=== PATIENT | female | born 1950 | race Caucasian/White ===

== ENCOUNTER 2016-05-15 12:43 | Outpatient (RCR) | payer BC, MEDICARE ==
[~2016-05-15 12:43] MED LIST: ACHD5005 PO; ALPR.25T PO; ASP81TEC PO; CLON0.5T25 PO; COLE1TAB PO; CTLP20T PO; DICY10CA59 PO; DULO60CA6 PO; GABA-490 PO; HYDR25TA4 PO; HYDR50TA3 PO; INDO25CA PO; LACT1CAP8 PO; SIMV40TA4 PO; TRAM50TA2 PO; VERA180C2 PO
[2016-05-19 08:17] LABS: BONE FRACTIONS (ALK PHOS ISO) 39 U/L (0-55)
[2016-05-19 08:19] LABS: LIVER FRACTION (ALK PHOS ISO) 97 H U/L (0-94); OTHER FRACTIONS 0 U/L
[2016-05-25 15:25] LABS: FECAL FAT WEIGHT 333 G
== END 2016-08-13 | disposition home or self-care (01) ==
LOC: LAB 12:43
PROVIDERS: ATTEND Internal Medicine Gastroenterology
DX: R19.5 Other fecal abnormalities (principal); R15.9 Full incontinence of feces
CPT/HCPCS: 36415; 82710; 84075; 84080

== ENCOUNTER → 2016-05-26 | Outpatient (CLI) | payer BC ==
[2016-05-29 07:30] LABS: SMOOTH MUSCLE ANTIBODY <1:20 (<1:20)
== END ==
LOC: LAB 12:35
PROVIDERS: ATTEND Internal Medicine Gastroenterology
DX: R79.89 Other specified abnormal findings of blood chemistry (principal)
CPT/HCPCS: 36415; 86255

== ENCOUNTER → 2016-06-20 | Outpatient (CLI) | payer MEDICARE, OTHER ==
--- NOTE | 2016-06-24 20:06 | Diagnostic Imaging Report ---
Bilateral screening mammogram The current study was also evaluated with a Computer Aided Detection (CAD) system. INDICATION: Screening. No current complaints stated on the questionnaire. COMPARISON: 05/14/2015. FINDINGS: The breasts are composed of scattered fibronodular densities. There are scattered punctate calcifications seen. Allowing for technique and positional differences, no suspicious change is seen. IMPRESSION: No significant change. ACR BI-RADS Category 2: Benign findings. Result letter will be mailed to the patient. Note: At least 10% of breast cancer is not imaged by mammography. Dictated by: Dictated on workstation # [id number]
== END ==
LOC: RAD 12:37
PROVIDERS: ATTEND Nurse Practitioner Adult Health
DX: Z12.31 Encounter for screening mammogram for malignant neoplasm of breast (principal)
CPT/HCPCS: 77067

== ENCOUNTER → 2016-10-17 | Outpatient (CLI) | payer MEDICARE, OTHER ==
[2016-10-18 07:36] LABS: GLIADIN ANTIBODY IGA 2 Units (0-19); GLIADIN ANTIBODY IGG 1 Units (0-19); IMMUNOGLOBULIN IGA 163 mg/dL (71-263)
== END ==
LOC: LAB 10:06
PROVIDERS: ATTEND Internal Medicine
DX: R19.7 Diarrhea, unspecified (principal)
CPT/HCPCS: 36415; 82784; 83516

== ENCOUNTER → 2017-03-13 | Outpatient (CLI) | payer MEDICARE, OTHER ==
[2017-03-13 15:02] LABS: BASOPHILS % (AUTO) 0 % (0-10); EOSINOPHILS # (AUTO) 0.1 10^3/uL (0.0-0.3); EOSINOPHILS % (AUTO) 1 % (0-10); LYMPHOCYTES # (AUTO) 4.8 X 10^3 (1.0-4.0); LYMPHOCYTES % (AUTO) 31 % (12-44); MEAN CORPUSCULAR HEMOGLOBIN 27 PG (25-34); MEAN CORPUSCULAR HGB CONC 34 G/DL (32-36); MEAN CORPUSCULAR VOLUME 78 FL (80-99); MEAN PLATELET VOLUME 8.7 FL (7.4-10.4); MONOCYTES # (AUTO) 1.2 X 10^3 (0.0-1.0); MONOCYTES % (AUTO) 8 % (0-12); NEUTROPHILS # (AUTO) 9.5 X 10^3 (1.8-7.8); NEUTROPHILS % (AUTO) 60 % (42-75); PLATELET COUNT 432 10^3/uL (130-400); RED BLOOD COUNT 5.19 10^6/uL (4.35-5.85); WHITE BLOOD COUNT 15.7 10^3/uL (4.3-11.0)
[2017-03-13 15:26] LABS: ALANINE AMINOTRANSFERASE 18 U/L (0-55); ALBUMIN 4.1 GM/DL (3.2-4.5); ANION GAP 15 MMOL/L (5-14); ASPARTATE AMINO TRANSFERASE 19 U/L (5-34); BILIRUBIN,TOTAL 0.3 MG/DL (0.1-1.0); BLOOD UREA NITROGEN 14 MG/DL (7-18); BUN/CREATININE RATIO 17; CALCIUM 9.6 MG/DL (8.5-10.1); CARBON DIOXIDE 31 MMOL/L (21-32); CHLORIDE 92 MMOL/L (98-107); CREATININE SERUM 0.82 MG/DL (0.60-1.30); GFR ESTIMATED > 60; GLUCOSE 108 MG/DL (70-105); MAGNESIUM 2.2 MG/DL (1.8-2.4); SODIUM 138 MMOL/L (135-145); TOTAL PROTEIN 7.4 GM/DL (6.4-8.2)
[2017-03-13 15:30] LABS: POTASSIUM 1.8 MMOL/L (3.6-5.0)
[2017-03-13 15:55] LABS: LYMPHOCYTES % (MANUAL) 21 %; NEUTROPHILS % (MANUAL) 67 %; REACTIVE LYMPHOCYTES 4 %
== END ==
LOC: LAB 14:26
PROVIDERS: ATTEND Internal Medicine Cardiovascular Disease
DX: R00.2 Palpitations (principal); I10 Essential (primary) hypertension; J43.8 Other emphysema; Z87.891 Personal history of nicotine dependence
CPT/HCPCS: 36415; 80053; 83735; 84443; 85007; 85027

== ENCOUNTER → 2017-03-18 | Outpatient (CLI) | payer MEDICARE, OTHER | LOC: CARD 09:25 | PROVIDERS: ATTEND Internal Medicine Cardiovascular Disease | DX: R00.2 Palpitations (principal); I10 Essential (primary) hypertension; J43.8 Other emphysema; Z87.891 Personal history of nicotine dependence | CPT/HCPCS: 93225; 93226; 93306 ==

== ENCOUNTER → 2017-03-24 | Outpatient (CLI) | payer MEDICARE, OTHER ==
[~2017-03-24] VITALS: Ht 162.6 cm; Wt 70.8 kg
[~2017-03-24] MED LIST changes: +CATHETER FLUSH 10 ML SYR IV PRN; +REGADENOSON 0.4 MG/5 ML SYR (LEXISCAN) IV ONE
[2017-03-24 09:15] VITALS: BP 151/85
--- NOTE | 2017-03-24 21:20 | STRESS TEST ---
DATE OF SERVICE: 03/24/2017 RESTING AND POST REGADENOSON TECHNETIUM-99M TETROFOSMIN SPECT CT IMAGING ORDERING PHYSICIAN: Dr. Uribe. PRIMARY PHYSICIAN: AMEYA Vyas CLINICAL DIAGNOSES: Shortness of breath, palpitations, hypertension. Baseline images were carried out after injection of 10.55 mCi of technetium 99-m Tetrofosmin. This was followed by 0.4 mg regadenoson and 32.7 mCi of technetium 99-m Tetrofosmin for stress imaging. The electrocardiogram showed sinus rhythm at baseline and it did not change significantly with the regadenoson infusion. Review of images at rest and following stress does not indicate any distinct perfusion defects consistent with significant myocardial ischemia or infarction. Gated images show normal global left ventricular systolic function with normal regional wall motion. Left ventricular ejection fraction is calculated to be 76%. Left ventricular end diastolic volume is 40 mL. TID is absent (0.98). CONCLUSIONS: 1. No evidence of any significant myocardial ischemia or infarction on this study. 2. Normal regional wall motion. 3. Normal global left ventricular systolic function with a calculated ejection fraction of 76%. 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
== END ==
LOC: CARD 07:21
PROVIDERS: ATTEND Internal Medicine Cardiovascular Disease
DX: I10 Essential (primary) hypertension (principal); J43.8 Other emphysema; R00.2 Palpitations; Z87.891 Personal history of nicotine dependence
CPT/HCPCS: 78452; 93017

== ENCOUNTER → 2017-04-02 | Outpatient (CLI) | payer MEDICARE, OTHER ==
[~2017-04-02] MED LIST changes: -CATHETER FLUSH 10 ML SYR IV PRN; -REGADENOSON 0.4 MG/5 ML SYR (LEXISCAN) IV ONE
[2017-04-02 14:39] LABS: ANION GAP 10 MMOL/L (5-14); BLOOD UREA NITROGEN 22 MG/DL (7-18); BUN/CREATININE RATIO 28; CALCIUM 9.7 MG/DL (8.5-10.1); CARBON DIOXIDE 25 MMOL/L (21-32); CHLORIDE 105 MMOL/L (98-107); CREATININE SERUM 0.78 MG/DL (0.60-1.30); GFR ESTIMATED > 60; GLUCOSE 94 MG/DL (70-105); POTASSIUM 3.7 MMOL/L (3.6-5.0); SODIUM 140 MMOL/L (135-145)
== END ==
LOC: LAB 14:07
PROVIDERS: ATTEND Nurse Practitioner Family
DX: R00.2 Palpitations (principal); I10 Essential (primary) hypertension; E87.6 Hypokalemia; J43.8 Other emphysema
CPT/HCPCS: 36415; 80048; 83735

== ENCOUNTER → 2017-04-09 | Outpatient (CLI) | payer MEDICARE, OTHER ==
[2017-04-09 12:17] LABS: ANION GAP 14 MMOL/L (5-14); BLOOD UREA NITROGEN 17 MG/DL (7-18); BUN/CREATININE RATIO 22; CALCIUM 9.5 MG/DL (8.5-10.1); CARBON DIOXIDE 22 MMOL/L (21-32); CHLORIDE 103 MMOL/L (98-107); CREATININE SERUM 0.77 MG/DL (0.60-1.30); GFR ESTIMATED > 60; GLUCOSE 106 MG/DL (70-105); POTASSIUM 3.2 MMOL/L (3.6-5.0); SODIUM 139 MMOL/L (135-145)
== END ==
LOC: LAB 11:41
PROVIDERS: ATTEND Nurse Practitioner Family
DX: I10 Essential (primary) hypertension (principal); R00.2 Palpitations; E87.6 Hypokalemia; J43.8 Other emphysema
CPT/HCPCS: 36415; 80048; 83735

== ENCOUNTER → 2017-04-13 | Outpatient (CLI) | payer MEDICARE, OTHER ==
[2017-04-13 14:43] LABS: ANION GAP 10 MMOL/L (5-14); BLOOD UREA NITROGEN 15 MG/DL (7-18); BUN/CREATININE RATIO 21; CALCIUM 9.6 MG/DL (8.5-10.1); CARBON DIOXIDE 25 MMOL/L (21-32); CHLORIDE 107 MMOL/L (98-107); CREATININE SERUM 0.72 MG/DL (0.60-1.30); GFR ESTIMATED > 60; GLUCOSE 91 MG/DL (70-105); MAGNESIUM 2.2 MG/DL (1.8-2.4); POTASSIUM 3.5 MMOL/L (3.6-5.0); SODIUM 142 MMOL/L (135-145)
== END ==
LOC: LAB 13:57
PROVIDERS: ATTEND Internal Medicine Cardiovascular Disease
DX: E87.6 Hypokalemia (principal)
CPT/HCPCS: 36415; 80048; 83735

== ENCOUNTER → 2017-04-30 | Outpatient (CLI) | payer MEDICARE, OTHER ==
[2017-04-30 14:34] LABS: BUN/CREATININE RATIO 26; CALCIUM 9.5 MG/DL (8.5-10.1); CARBON DIOXIDE 26 MMOL/L (21-32); CHLORIDE 105 MMOL/L (98-107); CREATININE SERUM 0.72 MG/DL (0.60-1.30); GFR ESTIMATED > 60; GLUCOSE 98 MG/DL (70-105); POTASSIUM 3.1 MMOL/L (3.6-5.0); SODIUM 142 MMOL/L (135-145)
== END ==
LOC: LAB 14:04
PROVIDERS: ATTEND Nurse Practitioner Family
DX: E87.6 Hypokalemia (principal)
CPT/HCPCS: 36415; 80048; 83735

== ENCOUNTER → 2017-05-07 | Outpatient (CLI) | payer MEDICARE, OTHER ==
[2017-05-07 13:25] LABS: BUN/CREATININE RATIO 28; CALCIUM 9.5 MG/DL (8.5-10.1); CARBON DIOXIDE 25 MMOL/L (21-32); CHLORIDE 104 MMOL/L (98-107); CREATININE SERUM 0.71 MG/DL (0.60-1.30); GFR ESTIMATED > 60; GLUCOSE 104 MG/DL (70-105); MAGNESIUM 1.9 MG/DL (1.8-2.4); POTASSIUM 3.1 MMOL/L (3.6-5.0); SODIUM 140 MMOL/L (135-145)
== END ==
LOC: LAB 13:01
PROVIDERS: ATTEND Internal Medicine Cardiovascular Disease
DX: E87.6 Hypokalemia (principal); I10 Essential (primary) hypertension; I47.1 Supraventricular tachycardia
CPT/HCPCS: 36415; 80048; 83735

== ENCOUNTER → 2017-05-14 | Outpatient (CLI) | payer MEDICARE, OTHER ==
[2017-05-14 15:40] LABS: BUN/CREATININE RATIO 32; CALCIUM 9.6 MG/DL (8.5-10.1); CARBON DIOXIDE 23 MMOL/L (21-32); CHLORIDE 104 MMOL/L (98-107); CREATININE SERUM 0.75 MG/DL (0.60-1.30); GFR ESTIMATED > 60; GLUCOSE 105 MG/DL (70-105); MAGNESIUM 2.3 MG/DL (1.8-2.4); SODIUM 140 MMOL/L (135-145)
== END ==
LOC: LAB 15:10
PROVIDERS: ATTEND Internal Medicine Cardiovascular Disease
DX: E87.6 Hypokalemia (principal); I10 Essential (primary) hypertension; R00.2 Palpitations; K58.0 Irritable bowel syndrome with diarrhea; J43.8 Other emphysema
CPT/HCPCS: 36415; 80048; 83735

== ENCOUNTER → 2017-06-22 | Outpatient (CLI) | payer MEDICARE, OTHER ==
--- NOTE | 2017-06-22 13:05 | Diagnostic Imaging Report ---
INDICATION: Routine screening. COMPARISON: 06/20/2016 and 05/14/2015. TECHNIQUE: Screening digital mammography was performed bilaterally with a Computer Aided Detection (CAD) system. FINDINGS: Scattered fibroglandular densities are identified bilaterally. There are circumscribed densities identified bilaterally. An ovoid density is identified in the medial right breast at posterior depth, not well seen on the MLO view. There is an ovoid density in the retroareolar left breast just medial to the nipple line, best seen on the CC view. Additional views of these areas and an ultrasound are recommended for further evaluation. No other masses are seen. No malignant appearing microcalcifications are identified. The axillae are unremarkable. IMPRESSION: Bilateral breast densities. Additional views are recommended for further evaluation. ACR BI-RADS Category 0: Incomplete. (Needs additional imaging evaluation). Result letter will be mailed to the patient. Note: At least 10% of breast cancer is not imaged by mammography. Dictated by: Dictated on workstation # [id number]
== END ==
LOC: RAD 10:16
PROVIDERS: ATTEND Nurse Practitioner Community Health
DX: Z12.31 Encounter for screening mammogram for malignant neoplasm of breast (principal); N63.0 Unspecified lump in unspecified breast
CPT/HCPCS: 77067

== ENCOUNTER → 2017-06-22 | Outpatient (CLI) | payer MEDICARE, OTHER ==
[2017-06-22 11:13] LABS: BUN/CREATININE RATIO 27; CALCIUM 9.3 MG/DL (8.5-10.1); CARBON DIOXIDE 22 MMOL/L (21-32); CHLORIDE 107 MMOL/L (98-107); CREATININE SERUM 0.75 MG/DL (0.60-1.30); GFR ESTIMATED > 60; GLUCOSE 86 MG/DL (70-105); MAGNESIUM 2.2 MG/DL (1.8-2.4); POTASSIUM 4.1 MMOL/L (3.6-5.0); SODIUM 140 MMOL/L (135-145)
== END ==
LOC: LAB 10:18
PROVIDERS: ATTEND Internal Medicine Cardiovascular Disease
DX: E87.6 Hypokalemia (principal); I10 Essential (primary) hypertension; R00.2 Palpitations; J43.8 Other emphysema; Z72.0 Tobacco use
CPT/HCPCS: 36415; 80048; 83735

== ENCOUNTER → 2017-07-02 | Outpatient (CLI) | payer MEDICARE, OTHER ==
--- NOTE | 2017-07-02 20:07 | Diagnostic Imaging Report ---
INDICATION: Bilateral breast densities. Patient presents for additional views. EXAMINATION: Bilateral 3D spot compression CC views as well as bilateral rolled CC views were obtained. FINDINGS: Additional views confirm tiny well-defined densities in the medial aspects of both breasts. These are fairly well-circumscribed and likely benign. Densities are hard to visualize on the ML views. No suspicious calcifications are seen. IMPRESSION: Tiny circumscribed nodules in the medial aspects of both breasts. These may represent tiny cysts or intramammary lymph nodes. Further evaluation with ultrasound is recommended. ACR BI-RADS Category 0: Incomplete. (Needs additional imaging evaluation). Result letter will be mailed to the patient. Note: At least 10% of breast cancer is not imaged by mammography. Dictated by: Dictated on workstation # [id number]
--- NOTE | 2017-07-02 20:09 | Diagnostic Imaging Report ---
INDICATION: Bilateral breast densities. The patient presents for ultrasound for further evaluation. COMPARISON: Correlation is made with a diagnostic mammogram earlier the same day. FINDINGS: Evaluation of the medial aspects of bilateral breasts was performed. No sonographic abnormality is identified. No solid or cystic mass is seen. IMPRESSION: No sonographic abnormality is identified to account for the densities noted on mammogram. Nodules were circumscribed mammographically and had benign features. Even so, a followup bilateral diagnostic mammogram in six months is recommended to assure stability. ACR BI-RADS Category 3: Probably benign findings. Result letter will be mailed to the patient. Note: At least 10% of breast cancer is not imaged by mammography. Dictated by: Dictated on workstation # [id number]
== END ==
LOC: RAD 12:24
PROVIDERS: ATTEND Nurse Practitioner Community Health
DX: N63.20 Unspecified lump in the left breast, unspecified quadrant (principal); N63.10 Unspecified lump in the right breast, unspecified quadrant
CPT/HCPCS: 76642; 77066

== ENCOUNTER → 2018-01-13 | Outpatient (CLI) | payer MEDICARE, OTHER ==
[~2018-01-13] MED LIST changes: -INDO25CA PO; +INDO25CA15 PO
--- NOTE | 2018-01-13 14:23 | Diagnostic Imaging Report ---
INDICATION: Bilateral breast nodules. Patient presents for six-month followup. Correlation is made with prior mammogram from 06/22/2017 2-D and 3-D bilateral diagnostic mammography was performed including CC, MLO and 90 degree lateral views. Circumscribed nodular densities are identified throughout both breasts. These have fairly benign features. There's been no significant change since prior exam. No spiculated mass or malignant appearing microcalcifications are seen. Axilla are unremarkable. Scattered breast parenchymal pattern is present. Impression: BI-RADS 3. Stable bilateral breast nodules likely benign. Additional six-month followup is recommended to confirm stability. ACR BI-RADS Category 3: Probably benign findings. Result letter will be mailed to the patient. Note: At least 10% of breast cancer is not imaged by mammography. Dictated by: Dictated on workstation # [id number]
== END ==
LOC: RAD 13:33
PROVIDERS: ATTEND Nurse Practitioner Community Health
DX: N63.10 Unspecified lump in the right breast, unspecified quadrant (principal); N63.20 Unspecified lump in the left breast, unspecified quadrant
CPT/HCPCS: 77066

== ENCOUNTER 2018-03-19 09:01 | Outpatient (CLI) | payer MEDICARE, OTHER ==
[~2018-03-19] VITALS: Ht 162.6 cm; Wt 67.3 kg
[2018-03-19] MEDS ORDERED: CHLO750T PO (09:20)
[2018-03-19] MEDS ORDERED: CITA20TA9 PO (09:20)
[2018-03-19] MEDS ORDERED: FURO20TA4 PO (09:20)
[2018-03-19] MEDS ORDERED: GABA800T2 PO (09:20)
[2018-03-19] MEDS ORDERED: POTA-51 PO (09:20)
[2018-03-19] MEDS ORDERED: METO-370 PO (09:20)
[2018-03-19] MEDS ORDERED: VERA240C2 PO (09:20)
[2018-03-19] MEDS ORDERED: ATOR10TA66 PO (09:20)
[2018-03-19 09:25] VITALS: BP 130/77
[2018-03-19 10:14] LABS: BASOPHILS % (AUTO) 0 % (0-10); EOSINOPHILS # (AUTO) 0.6 10^3/uL (0.0-0.3); EOSINOPHILS % (AUTO) 7 % (0-10); HEMATOCRIT 42 % (35-52); HEMOGLOBIN 13.7 G/DL (11.5-16.0); LYMPHOCYTES # (AUTO) 2.6 X 10^3 (1.0-4.0); LYMPHOCYTES % (AUTO) 28 % (12-44); MEAN CORPUSCULAR HEMOGLOBIN 26 PG (25-34); MEAN CORPUSCULAR HGB CONC 33 G/DL (32-36); MEAN CORPUSCULAR VOLUME 80 FL (80-99); MEAN PLATELET VOLUME 9.7 FL (7.4-10.4); MONOCYTES # (AUTO) 0.8 X 10^3 (0.0-1.0); MONOCYTES % (AUTO) 9 % (0-12); NEUTROPHILS # (AUTO) 5.3 X 10^3 (1.8-7.8); NEUTROPHILS % (AUTO) 57 % (42-75); PLATELET COUNT 341 10^3/uL (130-400); RED BLOOD COUNT 5.24 10^6/uL (4.35-5.85); WHITE BLOOD COUNT 9.4 10^3/uL (4.3-11.0)
[2018-03-19 10:30] LABS: BUN/CREATININE RATIO 19; CALCIUM 9.8 MG/DL (8.5-10.1); CARBON DIOXIDE 22 MMOL/L (21-32); CHLORIDE 108 MMOL/L (98-107); GFR ESTIMATED > 60; GLUCOSE 96 MG/DL (70-105); POTASSIUM 3.2 MMOL/L (3.6-5.0); SODIUM 141 MMOL/L (135-145)
[2018-03-25] MEDS ORDERED: IBUP-844 PO (09:51)
[2018-03-25] MEDS ORDERED: HYDR-34 PO (09:51)
[2018-03-25] MEDS ORDERED: SIME80TA16 PO (09:51)
[2018-03-25] MEDS ORDERED: DOCU100C37 PO (09:51)
== END 2018-03-19 11:29 | disposition home or self-care (01) ==
LOC: PREOP 09:01
PROVIDERS: ATTEND Obstetrics & Gynecology
DX: Z01.812 Encounter for preprocedural laboratory examination (principal); Z11.2 Encounter for screening for other bacterial diseases; N81.89 Other female genital prolapse; K64.4 Residual hemorrhoidal skin tags
CPT/HCPCS: 36415; 80048; 85025; 86850; 86900; 86901; 87081

== ENCOUNTER 2018-03-25 08:05 | Day surgery (SDC) | payer MEDICARE, OTHER ==
[~2018-03-25] VITALS: Ht 160 cm; Wt 63.7 kg
[~2018-03-25 08:05] MED LIST changes: +ATOR10TA66 PO; +CHLO750T PO; +CITA20TA9 PO; +FURO20TA4 PO; +GABA800T2 PO; +METO-370 PO; +POTA-51 PO; +VERA240C2 PO
[2018-03-25 08:15] VITALS: BP 129/69
[2018-03-25] MEDS ORDERED: LACTATED RINGERS 1,000 ML IV PRN ×2 (08:35)
[2018-03-25] MEDS ORDERED: LACTATED RINGERS 1,000 ML IV SCH (08:35)
[2018-03-25] MEDS ORDERED: ceFAZolin INJECTION 1,000 MG in NS (IVPB) 50 ML IV ONE (08:45)
[2018-03-25] MEDS ORDERED: metroNIDAZOLE 500MG/100ML IVPB 100 ML IV ONE (08:45)
--- NOTE | 2018-03-25 08:50 | Progress Note-Pre Operative ---
Pre-Operative Progress Note H&P Reviewed The H&P was reviewed, patient examined and no changes noted. Date Seen by Provider: Mar 25, 2018 Time Seen by Provider: 08:50 Date H&P Reviewed: Mar 25, 2018 Time H&P Reviewed: 09:00 Pre-Operative Diagnosis: POP, Grade 3 cystocele ASAF SANTIAGO DO Mar 25, 2018 8:50 am
[2018-03-25] MEDS ORDERED: VASOPRESSIN INJECTION 20 UNIT/ML VIAL ONE (09:03)
[2018-03-25] MEDS ORDERED: ESTROGENS CONJ. CREAM 30 GM (PREMARIN) TUBE ONE (09:03)
[2018-03-25] MEDS ORDERED: BUPIVACAINE 0.25% 30 ML (SENSORCAINE) VIAL ONE (09:04)
[2018-03-25] MEDS ORDERED: NS (IVPB) 100 ML ONE (09:04)
[2018-03-25] MEDS ORDERED: MIDAZOLAM 2 MG/2 ML (VERSED) VIAL ONE ×2 (09:04→09:48)
[2018-03-25] MEDS ORDERED: morphine INJ 10 MG/ML 1ML (SYR OR VIAL) ONE ×2 (09:05→12:08)
[2018-03-25] MEDS ORDERED: MIDAZOLAM 2 MG/2 ML (VERSED) VIAL IV ONE (09:15)
[2018-03-25] MEDS ORDERED: morphine INJ 10 MG/ML 1ML (SYR OR VIAL) IVP ONE ×2 (09:15→12:15)
[2018-03-25] MEDS ORDERED: DOCUSATE SODIUM 100 MG (COLACE) CAP PO PRN (09:45)
[2018-03-25] MEDS ORDERED: CHLORASEPTIC LOZENGE MM PRN (09:45)
[2018-03-25] MEDS ORDERED: ZOLPIDEM 5 MG (AMBIEN) TAB PO PRN (09:45)
[2018-03-25] MEDS ORDERED: ANTACID SUSP 30 ML UDC (MYLANTA) PO PRN (09:45)
[2018-03-25] MEDS ORDERED: SIMETHICONE 80 MG (MYLICON) CHEW PO PRN (09:45)
[2018-03-25] MEDS ORDERED: fentaNYL INJECTION 100 MCG/2 ML AMP ONE (09:47)
--- NOTE | 2018-03-25 09:49 | Discharge Inst-Women's Service ---
Discharge Inst-Women's Serv Depart Medication/Instructions New, Converted or Re-Newed RX: RX on Chart Consults/Follow Up Additional Follow Up: Yes Orders/Referrals Dr. Guerrero in 7-10 days and in 8 weeks Activity Activity: Activity as Tolerated Driving Instructions: No Driving for 1 Week NO SMOKING: NO SMOKING Nothing Inside Vagina: No Douching, No Tula, No Tampons Diet Discharge Diet: No Restrictions Symptoms to Report to : Bleeding Excessive, Pain Increased, Fever Over 101 Degrees F, Vaginal Bleeding Increase, Questions/Concerns For Any Problems or Questions: Contact Your Physician Skin/Wound Care Infection Signs and Symptoms: Increased Redness, Foul Odor of Wound, Increased Drainage, Skin Itchy or Has a Rash, Increased Swelling, Temperature Above 101 F Operative Area Clean and Dry: Keep Incision Clean/Dry Stitches/Avinash/Dermabond: Dermabond, Care of Stitches Bathing Instructions: ASAF Menon DO Mar 25, 2018 9:49 am
[2018-03-25] MEDS ORDERED: SIME80TA16 PO (09:51)
[2018-03-25] MEDS ORDERED: IBUP-844 PO (09:51)
[2018-03-25] MEDS ORDERED: HYDR-34 PO (09:51)
[2018-03-25] MEDS ORDERED: DOCU100C37 PO (09:51)
[2018-03-25] MEDS ORDERED: LIDOCAINE PF 2% 5 ML (XYLOCAINE) VIAL ONE (11:06)
[2018-03-25] MEDS ORDERED: ONDANSETRON 4 MG/2 ML (SDV) Z0FRAN ONE (11:06)
[2018-03-25] MEDS ORDERED: GLYCOPYRROLATE 0.2 MG/ML (ROBINUL) 2 ML VIAL ONE ×2 (11:06→11:53)
[2018-03-25] MEDS ORDERED: NEOSTIGMINE 1 MG/ML 5 ML SYRINGE ONE (11:06)
[2018-03-25] MEDS ORDERED: DEXAMETHASONE 10 MG/ML (DECADRON) 1 ML VIAL ONE (11:06)
[2018-03-25] MEDS ORDERED: proPOfol 200 MG/20 ML (DIPRIVAN) VIAL IV ONE (11:06)
[2018-03-25] MEDS ORDERED: SEVOFLURANE (ULTANE) 15 ML INHAL SOLN ONE ×8 (11:06→11:58)
[2018-03-25] MEDS ORDERED: ROCURONIUM 10 MG/ML 5 ML SYRINGE IV ONE (11:06)
[2018-03-25] MEDS ORDERED: KETOROLAC 30 MG/ML VIAL ONE (11:06)
[2018-03-25] MEDS ORDERED: MUPIROCIN 2% OINT 22 GM (BACTROBAN) TUBE ONE (11:45)
[2018-03-25] MEDS: KETOROLAC 30 MG/ML VIAL IV PRN ×2 (11:47→19:46)
[2018-03-25] MEDS ORDERED: HYDROmorphone 2 MG/ML VIAL (DILAUDID) IV ONE (12:15)
[2018-03-25] MEDS ORDERED: ONDANSETRON 4 MG/2 ML (SDV) Z0FRAN IVP PRN (12:15)
[2018-03-25 13:25] VITALS: BP 133/72
[2018-03-25] MEDS: LACTATED RINGERS 1,000 ML IV SCH ×2 (13:33→23:58)
[2018-03-25] MEDS: HYDROcodone/APAP 7.5 MG/325 MG (LORTAB, LORCET PLUS) TABLET PO PRN (14:26)
--- OUTSIDE RECORDS SUMMARY | 2018-03-25 14:59 | XMS REPORT ---
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0 Active 533785768 Problem Abnormal mammogram R92.8 Active 910199841 Problem Major depressive disorder, recurrent episode, severe F33.2 Active 776155330572 Problem Parkinsons G20 Active 51763110 Problem PTSD (post-traumatic stress disorder) F43.10 Active 99906663 Problem Depression F32.9 Active 77849250 Problem Anxiety F41.9 Active 95430164 Problem COPD (chronic obstructive pulmonary disease) J44.9 Active 46198939 Problem Annular psoriasis L40.8 Active 263942033 Problem HTN (hypertension) I10 Active 57355899 Problem Hypertriglyceridemia E78.1 Active 120686906 ALLERGIES Substance Reaction Event Type Date Status Latex Unknown Drug Allergy Jan, Active Budesonide rash/swelling Drug Allergy Jan, Active ENCOUNTERS Encounter Location Date Diagnosis [facility] [id number] [address] Jan, Prolapsed uterus N81.4 ; Hemorrhoids, unspecified hemorrhoid type K64.9 and Eczema, unspecified type L30.9 [facility] [id number] [place] [address] 12506- 6205 Jan, Eczema of both hands L30.9 [place] [id number] [place] [address] 15577- 9945 Dec, Breast density R92.2 [place] [id number] [place] [address] 33140- 4344 Nov, Irritable bowel syndrome with diarrhea K58.0 and Alopecia L65.9 [place] [id number] [place] [address] 30220- 4957 Oct, Chronic diarrhea K52.9 and Acute colitis K52.9 [place] [id number] [place] [address] 99899- 7967 Oct, Chronic diarrhea K52.9 [place] [id number] [place] [address] 93259- 7564 Oct, Chronic diarrhea K52.9 and Edema of both legs R60.0 [place] [id number] [place] [address] 73469- 1284 Sep, Medicare annual wellness visit, initial Z00.00 ; Parkinsons G20 ; COPD (chronic obstructive pulmonary disease) J44.9 ; Major depressive disorder, single episode, mild F32.0 ; HTN (hypertension) I10 ; Hypokalemia E87.6 and Adverse effect of carbonic-anhydrase inhibitors, benzothiadiazides and other diuretics, initial encounter T50.2X5A [place] [id number] [place] [address] 42836- 6389 Sep, Localized edema R60.0 [place] [id number] [place] [address] 23387- 0775 Sep, [address] [id number] [place] [address] 46016- 1936 Sep, Major depressive disorder, single episode, mild F32.0 ; PTSD (post-traumatic stress disorder) F43.10 and Edema of both legs R60.0 [place] [id number] [place] [address] 73805- 0339 August, Localized edema R60.0 [facility] [id number] [place] [address] 60785- 9526 August, Localized edema R60.0 ; Weight gain R63.5 and Irritable bowel syndrome with diarrhea K58.0 [facility] [id number] [place] [address] 46528- 0865 Jul, [facility] [id number] [place] [address] 31839- 8656 Jul, Elevated liver enzymes R74.8 [facility] [id number] [place] [address] 10945- 1376 Jul, Polyneuropathy G62.9 [facility] [id number] [place] [address] 39875- 1890 Jul, [facility] [id number] [place] [address] 15182- 7110 Jul, Cervical disc disease M50.90 [facility] [id number] [place] [address] 02382- 8346 Jul, Elevated liver enzymes R74.8 [facility] [id number] [place] [address] 50134- 1248 Jul, Polyneuropathy G62.9 ; Ulcerative pancolitis without complication K51.00 ; Depression F32.9 ; Leg weakness, bilateral R29.898 and Paresthesia of bilateral legs R20.2 [facility] [id number] [place] [address] 33077- 8887 Jul, Polyneuropathy G62.9 ; Ulcerative pancolitis without complication K51.00 ; Depression F32.9 ; Leg weakness, bilateral R29.898 and Paresthesia of bilateral legs R20.2 [facility] [id number] [place] [address] 68801- 0731 Jun, [facility] [id number] [place] [address] 98790- 6973 Jun, Fibrous breast lumps N63.0 [place] [id number] [place] [address] 96121- 4290 Jun, Ulcerative pancolitis without complication K51.00 [place] [id number] [place] [address] 33223- 6288 Jun, Abnormal mammogram R92.8 [place] [address] 08422- 4490 Jun, Breast density R92.2 [place] [address] 27151- 1893 Jun, [place] [id number] [place] [address] 44997- 5212 Jun, PTSD (post-traumatic stress disorder) F43.10 [place] [id number] [place] [address] 25362- 2844 May, [place] [id number] [place] [address] 94998- 1848 May, Breast cancer screening Z12.31 and Fibrous breast lumps N63.0 [place] [id number] [place] [address] 65190- 1936 Apr, Ulcerative pancolitis without complication K51.00 [place] [id number] [place] [address] 21706- 7639 Apr, [place] [id number] [place] [address] 90363- 2444 Apr, Ulcerative pancolitis without complication K51.00 ; Low back pain M54.5 and Other chronic pain G89.29 [place] [id number] [place] [address] 10297- 1069 Dec, Cervical disc disease M50.90 and HTN (hypertension) I10 [place] [id number] [place] [address] 72939- 7897 Dec, Moderate episode of recurrent major depressive disorder F33.1 and PTSD (post-traumatic stress disorder) F43.10 [place] [id number] [place] [address] 33617- 0220 Oct, [place] [id number] [place] [address] 26571- 9110 Oct, Irritable bowel syndrome with diarrhea K58.0 [place] [id number] [place] [address] 19523- 1444 Oct, Irritable bowel syndrome with diarrhea K58.0 [place] [id number] [place] [address] 18446- 0788 Sep, Diarrhea, unspecified type R19.7 ; Chronic pain G89.29 ; Hypertriglyceridemia E78.1 ; PTSD (post-traumatic stress disorder) F43.10 ; History of herniated intervertebral disc Z87.39 and Depression F32.9 [place] [id number] [place] [address] 42901- 7282 August, Moderate episode of recurrent major depressive disorder F33.1 and PTSD (post-traumatic stress disorder) F43.10 [place] [id number] [place] [address] 28637- 1114 August, [place] [id number] [place] [address] 24602- 4524 Jul, [place] [id number] [place] [address] 75224- 9387 Jul, PTSD (post-traumatic stress disorder) F43.10 ; IBS ( irritable bowel syndrome) K58.9 ; HTN (hypertension) I10 ; Hypertriglyceridemia E78.1 ; Chronic pain G89.29 ; Anxiety F41.9 ; Depression F32.9 ; COPD (chronic obstructive pulmonary disease) J44.9 ; Irritable bowel syndrome with diarrhea K58.0 and Second degree hemorrhoids K64.1 [place] [id number] [place] [address] 98206- 3265 Jul, PTSD (post-traumatic stress disorder) F43.10 [place] [id number] [place] [address] 69313- 2325 Jul, [facility] [id number] [place] [address] 09525- 7933 Jun, [place] [id number] [place] [address] 64297- 2340 Jun, HTN (hypertension) I10 [place] [id number] [place] [address] 66712- 4193 May, Depression F32.9 ; Post traumatic stress disorder F43.10 and Screening mammogram, encounter for Z12.31 [place] [id number] [place] [address] 35679- 4203 May, [place] [id number] [place] [address] 50395- 3443 May, PTSD (post-traumatic stress disorder) F43.10 and Major depressive disorder in partial remission F32.4 [place] [id number] [place] [address] 60454- 4969 May, PTSD (post-traumatic stress disorder) F43.10 ; IBS ( irritable bowel syndrome) K58.9 ; History of herniated intervertebral disc Z87.39 ; Anxiety F41.9 ; Depression F32.9 ; Hypertriglyceridemia E78.1 ; Eczema of both hands L30.9 ; HTN (hypertension) I10 and COPD (chronic obstructive pulmonary disease) J44.9 [place] [address] [address]- 7627 Apr, Major depressive disorder in partial remission F32.4 and PTSD (post-traumatic stress disorder) F43.10 [place] [address] [address]- 1499 Apr, PTSD (post-traumatic stress disorder) F43.10 [place] [address] 98445- 9361 Mar, IBS (irritable bowel syndrome) K58.9 ; PTSD (post-traumatic stress disorder) F43.10 ; COPD (chronic obstructive pulmonary disease) J44.9 ; History of herniated intervertebral disc Z87.39 ; HTN (hypertension) I10 ; Parkinsons G20 ; Annular psoriasis L40.8 and Hypertriglyceridemia E78.[address] 31210- 5006 Feb, [address] 53309- 1251 Feb, Moderate episode of recurrent major depressive disorder F33.1 and PTSD (post-traumatic stress disorder) F43.[address] 15923- 9827 Jan, Onychocryptosis L60.[address] 85738- 4401 Dec, [place] [address] 39102- 3781 Dec, Dizziness R42 ; PTSD (post-traumatic stress disorder) F43.10 ; Posttraumatic stress disorder F43.10 ; IBS (irritable bowel syndrome) K58.9 ; History of herniated intervertebral disc Z87.39 ; HTN (hypertension) I10 ; Chronic pain G89.29 and Hypercholesterolemia E78.0 [place] [address] 84620- 3082 Dec, [address] 57521- 5158 Dec, [facility] [address] [place] [address] 65264 -6207 Dec, Annular psoriasis L40.[address] 45489- 3049 Nov, [address] [place] [address]- 3756 Nov, [address] 72731- 2581 Nov, HTN (hypertension) I10 ; Chronic pain G89.29 ; Annular psoriasis L40.8 ; IBS (irritable bowel syndrome) K58.9 and Vision changes H53.[address] 33935- 5632 Oct, [address] 91608- 7685 Oct, IBS (irritable bowel syndrome) K58.9 ; PTSD (post-traumatic stress disorder) F43.10 ; HTN (hypertension) I10 ; Depression F32.9 ; History of herniated intervertebral disc Z87.39 ; Anxiety F41.9 ; Chronic pain G89.29 and Hypercholesterolemia E78.[address] 00559- 4594 Oct, Major depressive disorder in partial remission F32.4 and PTSD (post-traumatic stress disorder) F43.[address] 93739- 5349 Oct, IBS (irritable bowel syndrome) K58.9 ; PTSD (post-traumatic stress disorder) F43.10 ; Major depressive disorder, recurrent episode, severe F33.2 ; Anxiety F41.9 and Impacted cerumen, unspecified laterality H61.20 [place] [id number] [place] [address] 69130- 6434 Oct, Major depressive disorder in partial remission F32.4 ; Posttraumatic stress disorder F43.10 and Anxiety F41.[address] 68551- 8427 Sep, [address] 01265- 9446 Sep, Anxiety F41.9 ; Major depressive disorder, recurrent episode , mild F33.0 and Posttraumatic stress disorder F43.10 [place] [id number] [place] [address] 79088- 3105 Sep, [place] [address] 78987- 9762 August, [place] [id number] [place] [address] 37148- 7903 Jul, Contact dermatitis L25.9 [place] [address] 96607- 6133 Jul, Major depressive disorder, recurrent episode, severe F33.2 ; Posttraumatic stress disorder F43.10 and Anxiety F41.9 [place] [address] 02265- 5205 Jul, [place] [id number] [place] [address] 00601- 0763 Jun, IBS (irritable bowel syndrome) K58.9 ; COPD (chronic obstructive pulmonary disease) J44.9 ; HTN (hypertension) I10 ; Chronic pain G89.29 ; Anxiety F41.9 ; PTSD (post-traumatic stress disorder) F43.10 ; Parkinsons G20 and Hypercholesterolemia E78.0 [place] [id number] [place] [address] 63665- 9613 Jun, [place] [id number] [place] [address] 50564- 2376 Jun, Onychocryptosis L60.0 and Onychomycosis B35.1 [place] [id number] [place] [address] 69689- 0919 May, [place] [address] 22852- 4421 May, IBS (irritable bowel syndrome) K58.9 ; COPD (chronic obstructive pulmonary disease) J44.9 ; History of herniated intervertebral disc Z87.39 ; HTN (hypertension) I10 ; Anxiety F41.9 ; Depression F32.9 and Major depressive disorder in partial remission F32.4 [place] [address] [address]- 5990 08 May, 2015 IBS (irritable bowel syndrome) K58.9 ; COPD (chronic obstructive pulmonary disease) J44.9 ; History of herniated intervertebral disc Z87.39 ; HTN (hypertension) I10 ; Anxiety F41.9 ; Depression F32.9 and Major depressive disorder in partial remission F32.4 [place] [id number] [place] [address] 33651- 9101 04 May, 2015 [place] [id number] [place] [address] 58423- 1115 04 May, 2015 Anxiety F41.9 ; IBS (irritable bowel syndrome) K58.9 and Major depressive disorder in partial remission F32.4 [place] [id number] [place] [address] 54417- 7286 18 Apr, 2015 Encounter for screening mammogram for breast cancer Z12.31 [place] [id number] [place] [address] 60303- 9601 15 Apr, 2015 [place] [id number] [place] [address] 62066- 2898 Apr, [place] [id number] [place] [address] 21666- 4607 Apr, COPD (chronic obstructive pulmonary disease) J44.9 ; HTN ( hypertension) I10 ; Chronic pain G89.29 ; Anxiety F41.9 ; PTSD (post-traumatic stress disorder) F43.10 and IBS (irritable bowel syndrome) K58.9 [place] [id number] [place] [address] 37464- 6961 Apr, PTSD (post-traumatic stress disorder) F43.10 [place] [id number] [place] [address] 15377- 0898 08 Apr, 2015 Onychocryptosis L60.0 and Onychomycosis B35.1 [place] [id number] [place] [address] 56383- 8880 Apr, IBS (irritable bowel syndrome) K58.9 ; COPD (chronic obstructive pulmonary disease) J44.9 ; History of herniated intervertebral disc Z87.39 ; HTN (hypertension) I10 ; Chronic pain G89.29 ; Anxiety F41.9 ; Depression F32.9 ; Parkinsons G20 ; Hypercholesteremia E78.0 and Hemorrhoid K64.9 [place] [id number] [place] [address] 30452- 7736 Mar, [place] [id number] [place] [address] 11480- 4452 Mar, Major depressive disorder, recurrent episode, severe F33.2 and Posttraumatic stress disorder F43.10 [place] [id number] [place] [address] 24374- 5977 Mar, [place] [id number] [place] [address] 13308- 3221 Mar, [place] [id number] [place] [address] 63884- 9817 Mar, PTSD (post-traumatic stress disorder) F43.10 [place] [id number] [place] [address] 20274- 8048 Mar, Onychomycosis B35.1 and Hypertension, benign I10 [place] [id number] [place] [address] 18781- 5641 Mar, Onychomycosis B35.1 and Hypertension, benign I10 [place] [id number] [place] [address] 15567- 9011 Feb, PTSD (post-traumatic stress disorder) F43.10 [place] [id number] [place] [address] 33177- 9470 Feb, [place] [id number] [place] [address] 31551- 5216 Feb, Major depressive disorder, recurrent episode, severe F33.2 and Posttraumatic stress disorder F43.10 [facility] [address] [place] [address] 13499- 7426 Jan, PTSD (post-traumatic stress disorder) F43.10 [facility] [id number] [place] [address] 20386 2546 Jan, Rash R21 [facility] [address] 67271 2546 Jan, PTSD (post-traumatic stress disorder) F43.10 [facility] [id number] [place] [address] 99249 2546 Jan, [place] [id number] [place] [address] 27840- 5366 30 Dec, 2014 Neuropathy 355.9 [place] [id number] [place] [address] 87816- 7306 30 Dec, 2014 PTSD (post-traumatic stress disorder) F43.10 [facility] [id number] [place] [address] 24904- 6458 29 Dec, 2014 MDD (major depressive disorder), recurrent episode, severe 296.33 and PTSD (post-traumatic stress disorder) 309.81 [place] [id number] [place] [address] 90763- 1688 Dec, [facility] [id number] [place] [address] 31506 2548 Dec, Ingrown toenail 703.0 [place] [id number] [place] [address] 24790- 9826 02 Dec, 2014 Posttraumatic stress disorder 309.81 [place] [id number] [place] [address] 98971- 2546 Nov, Depressive disorder, not elsewhere classified 311 and Anxiety state, unspecified 300.00 [facility] [id number] [place] [address] 69873- 1725 Oct, Depressive disorder, not elsewhere classified 311 and Anxiety state, unspecified 300.00 [facility] [address] [place] [address] 23958- 6745 16 Oct, 2014 Depressive disorder, not elsewhere classified 311 ; Anxiety state, unspecified 300.00 and No condition on [place] II V71.09 [facility] [address] [id number] [address] Oct, Dental examination V72.2 [facility] [id number] [place] [address] 04194- 6651 Oct, [facility] [id number] [place] [address] 46910- 1162 August, [facility] [id number] [place] [address] 72310- 3612 August, Seizure 780.39 and IBS (irritable bowel syndrome) 564.1 [facility] [id number] [place] [address] 52143- 0174 Jul, [facility] [id number] [place] [address] 19216- 9291 Jul, [facility] [id number] [place] [address] 28696- 9891 Jun, [facility] [id number] [place] [address] 93122- 8590 Jun, [facility] [id number] [place] [address] 72132- 9874 Jun, [facility] [address] [address]- 8719 Jun, [facility] [id number] [place] [address] 79920- 9404 Jun, [facility] [id number] [place] [address] 30729- 2893 Jun, [facility] [id number] [place] [address] 59193- 2546 Jun, [facility] [place] [facility] [address] [id number] [place] [address]- 0375 Jun, [facility] [place] [facility] [address] [id number] [place] [address]- 9755 Jun, [facility] [place] [facility] [address] [id number] [place] [address]- 1605 Jun, [facility] [place] [facility] [address] [id number] [place] [address]- 7945 Jun, [facility] [place] [facility] [address] [id number] [place] [address]- 8651 Jun, [facility] [place] [facility] [address] [id number] [place] [address]- 1825 May, [facility] [place] [facility] [address] [id number] [place] [address]- 2020 May, [facility] [place] [facility] [address] [id number] [place] [address]- 5407 Apr, [facility] [place] [facility] [address] [id number] [place] [address]- 2418 Apr, [facility] [place] [facility] [address] [id number] [place] [address]- 3267 Mar, [facility] [place] [facility] [address] [id number] [place] [address]- 4592 Mar, [facility] [place] [facility] [address] [id number] [place] [address]- 2088 Mar, [facility] [place] [facility] [address] [id number] [place] 2988 Mar, [facility] [place] [facility] [address] [id number] [place] 0296 Mar, [facility] [place] [facility] [address] [id number] [place] [address]- 5657 Mar, [facility] [place] [facility] [address] [id number] [place] [address]- 4261 Mar, [facility] [place] [facility] [address] [id number] [place] [address] Mar, [facility] [place] [facility] [address] [id number] [place] [address] Mar, [facility] [place] [facility] [address] [id number] [place] [address] Mar, [facility] [place] [facility] [address] [id number] [place] [address] Mar, [facility] [place] [facility] [address] [id number] [place] [address] Mar, [facility] [place] [facility] [address] [id number] [place] [address] Mar, [facility] [place] [facility] [address] [id number] [place] [address] Mar, [facility] [place] [facility] [address] [id number] [place] [address] Mar, [facility] [place] [facility] [address] [id number] [place] [address] Mar, [facility] [place] [facility] [address] [id number] [place] [address] Mar, [facility] [place] [facility] [address] [id number] [place] [address] Mar, [facility] [place] [facility] [address] [id number] [place] [address] Mar, [facility] [place] [facility] [address] [id number] [place] [address] Feb, [facility] [place] [facility] [address] [id number] [place] [address] Feb, [facility] [place] [facility] [address] [id number] [place] [address] Feb, [facility] [place] [facility] [address] [id number] [place] [address] 18 Feb, 2014 [facility] [place] [facility] [address] [id number] [place] [address] Feb, [facility] [place] [facility] [address] [id number] [place] [address] 17 Feb, 2014 [facility] [place] [facility] [address] [id number] [place] [address] Feb, [facility] [place] [facility] [address] [id number] [place] [address] Feb, [facility] [place] [facility] [address] [id number] [place] [address]- 3144 15 Jan, 2014 [facility] [place] [facility] [address] [id number] [place] [address] Jan, [facility] [place] [facility] [address] [id number] [place] [address] Nov, [facility] [place] [facility] [address] [id number] [place] [address] Nov, [facility] [place] [facility] [address] [id number] [place] [address] Oct, [facility] [place] [facility] [address] [id number] [place] [address] Oct, [facility] [place] [facility] [address] [id number] [place] [address] Oct, [facility] [place] [facility] [address] [id number] [place] [address] Oct, [facility] [place] [facility] [address] [id number] [place] [address] Oct, [facility] [place] [facility] [address] [id number] [place] [address] Sep, [facility] [place] [facility] [address] [id number] [place] [address] Sep, [facility] [place] [facility] [address] [id number] [place] [address] August, [facility] [place] [facility] [address] [id number] [place] [address] August, [facility] [place] [facility] [address] [id number] [place] [address] Jun, [facility] [place] [facility] [address] [id number] [place] [address] Jun, [facility] [place] [facility] [address] [id number] [place] [address] 74[address] Jun, [facility] [place] [facility] [address] [id number] [place] [address] Jun, [facility] [place] [facility] [address] [id number] [place] [address] 67[address] Jun, [facility] [place] [facility] [address] [id number] [place] [address] 6[address] Jun, [facility] [place] [facility] [address] [id number] [place] [address] 9464 Jun, [facility] [place] [facility] [address] [id number] [place] [address] Jun, [facility] [place] [facility] [address] [id number] [place] [address] Jun, [facility] [place] [facility] [address] [id number] [place] [address] Jun, [facility] [place] [facility] [address] [id number] [place] [address] Jun, [facility] [place] [facility] [address] [id number] [place] [address] Jun, [facility] [place] [facility] [address] [id number] [place] [address] 7184 Jun, [facility] [place] [facility] [address] [id number] [place] [address] Jun, [facility] [place] [facility] [address] [id number] [place] [address] 97[address] May, [facility] [place] [facility] [address] [id number] [place] [address] May, [facility] [place] [facility] [address] [id number] [place] [address] 39[address] Apr, [facility] [place] [facility] [address] [id number] [place] [address] Apr, [facility] [place] [facility] [address] [id number] [place] [address] 0[address] Mar, [facility] [place] [facility] [address] [id number] [place] [address] 9121 Mar, [facility] [place] [facility] [address] [id number] [place] [address]698 Feb, [facility] [place] [facility] [address] [id number] [place] [address] Feb, [facility] [place] [facility] [address] [id number] [place] [address]17 Feb, [facility] [place] [facility] [address] [id number] [place] [address] 40[address] Feb, [facility] [place] [facility] [address] [id number] [address] Feb, [facility] [place] [facility] [address] [id number] [place] [address] Feb, [facility] [place] [facility] [address] [id number] [place] [address] Feb, [facility] [place] [facility] [address] [id number] [place] [address] Jan, [facility] [place] [facility] [address] [id number] [place] [address] 2546 Jan, [facility] [place] [facility] [address] [id number] [place] [address] Dec, [facility] [place] [facility] [address] [id number] [place] [address] 224[address] Dec, [facility] [place] [facility] [address] [id number] [place] [address]- 6536 Nov, [facility] [place] [facility] [address] [id number] [place] [address] 2317 Nov, [facility] [place] [facility] [address] [id number] [place] [address] 6[address] Oct, [facility] [place] [facility] [address] [id number] [place] [address] 0937 Sep, [facility] [place] [facility] [address] [id number] [place] [address] 3815 Sep, [facility] [place] [facility] [address] [id number] [place] [address] 1328 August, [facility] [place] [facility] [address] [id number] [place] [address]16 August, [facility] [place] [facility] [address] [id number] [place] [address] 8898 August, [facility] [place] [facility] [address] [id number] [place] [address] Jul, [facility] [place] [facility] [address] [id number] [place] [address] 7010 May, [facility] [place] [facility] [address] [id number] [place] [address]- 1028 May, [facility] [place] [facility] [address] [id number] [place] [address] 5488 Apr, [facility] [place] [facility] [address] [id number] [place] [address] 2543 Apr, [facility] [place] [facility] [address] [id number] [place] [address] 2068 Feb, [facility] [place] [facility] [address] [id number] [place] [address] 8079 Feb, [facility] [place] [facility] [address] [id number] [place] [address] 4816 Jan, [facility] [place] [facility] [address] [id number] [place] [address] 3538 Jan, [facility] [place] [facility] [address] [id number] [place] [address] 2305 Jan, [facility] [place] [facility] [address] [id number] [place] [address] 9553 Nov, [facility] [place] [facility] [address] [id number] [place] [address]- 4964 Nov, [facility] [place] [facility] [address] [id number] [place] [address]- 3512 Nov, [facility] [place] [facility] [address] [id number] [place] [address]- 2550 Nov, [facility] [place] [facility] [address] [id number] [place] [address]- 4160 Nov, [facility] [place] [facility] [address] [id number] [place] [address]- 6783 Oct, [facility] [place] [facility] [address] [id number] [place] [address]- 2422 Oct, [facility] [place] [facility] [address] [id number] [place] [address]- 2644 Oct, [facility] [place] [facility] [address] [id number] [place] [address]- 8397 Oct, [facility] [place] [facility] [address] [id number] [place] [address]- 2597 Oct, [facility] [place] [facility] [address] [id number] [place] [address]- 0691 Oct, [facility] [address] [id number] [place] [address]- 9870 Oct, [facility] [place] [facility] [address] [id number] [place] [address]- 8526 Sep, [facility] [place] [facility] [address] [id number] [place] [address]- 0894 Sep, [facility] [place] [facility] [address] [id number] [place] [address]- 7435 Sep, [facility] [place] [facility] [address] [id number] [place] [address]- 7324 August, [facility] [place] [facility] [address] [id number] [place] [address]- [address]56 30 Jul, 2011 [facility] [place] [facility] [address] [id number] [place] [address]- 4179 Jul, [facility] [place] [facility] [address] [id number] [place] [address]- 7435 Jul, [facility] [place] [facility] [address] [id number] [place] [address]- 0864 Jul, [facility] [place] [facility] [address] [id number] [place] [address]- 5671 Jul, [facility] [place] [facility] [address] [id number] [place] [address]- 7946 Jun, [facility] [place] [facility] [address] [id number] [place] [address]- 1394 May, [facility] [place] [facility] [address] [id number] [place] [address]- 0537 Apr, [facility] [place] [facility] [address] [id number] [place] [address]- 5281 Apr, [facility] [place] [facility] [address] [id number] [place] [address]- 9705 Apr, [facility] [place] [facility] [address] [id number] [place] [address]- 9818 18 Apr, 2011 [facility] [place] [facility] [address] [id number] [place] [address]- 3091 Apr, [facility] [place] [facility] [address] [id number] [place] [address]- 9746 Apr, [facility] [place] [facility] [address] [id number] [place] [address] Mar, [facility] [place] [facility] [address] [id number] [place] [address]- 5549 Mar, [facility] [place] [facility] [address] [id number] [place] [address]- 0170 Feb, [facility] [place] [facility] [address] [id number] [place] [address]- 2360 Nov, [facility] [place] [facility] [address] [id number] [place] [address]- 4429 Jun, [facility] [place] [facility] [address] [id number] [place] [address]- 6191 Apr, [facility] [place] [facility] [address] [id number] [place] [address]- 6963 Feb, [facility] [place] [facility] [address] [id number] [place] [address]- 8965 Jan, [facility] [place] [facility] [address] [id number] [place] [address]- 5154 Jan, [facility] [place] [facility] [address] [id number] [place] [address]- 7114 Jan, [facility] [place] [facility] [address] [id number] [place] [address]- 2937 Jan, [facility] [place] [facility] [address] [id number] [place] [address]- 0604 16 Nov, 2009 [facility] [place] [facility] [address] [id number] [place] [address]- 6602 Nov, [facility] [address] [facility] [id number] [address] Mar, [facility] [id number] [address] Mar, [facility] [id number] [address] [address] Feb, [facility] [id number], [place] [address]- 1791 Feb, [facility] [address] [facility] [id number], [place] [address]- [address] Jan, [facility] [id number], [place] [address] May, IMMUNIZATIONS No Known Immunizations SOCIAL HISTORY Never Assessed REASON FOR VISIT prolapsed uterus Poornima ISABEL, hemroid Poornima ISABEL PLAN OF CARE Activity Details 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) Reason:prolapsed uterus VITAL SIGNS Height 64 in 2018-02-17 Weight 148.2 lbs 2018-02-17 Temperature 98.1 degrees Fahrenheit 2018-02-17 Heart Rate 69 bpm 2018-02-17 Respiratory Rate 20 2018-02-17 BMI 25.44 kg/m2 2018-02-17 Blood pressure systolic 122 mmHg 2018-02-17 Blood pressure diastolic 74 mmHg 2018-02-17 MEDICATIONS Medication Instructions Dosage Frequency Start Date End Date Duration Status Potassimin 20 meq Orally 2 times a day 1 tablet 12h Active Parafon Forte DSC 500 mg Orally Three times a day 1 tablet 8h Apr, 30 Active Verapamil HCl ER 240 MG Orally Once a day 1 tablet 24h Active Chlorzoxazone 500 MG TAKE ONE (1) TABLET BY MOUTH THREE (3) TIMES DAILY 30 Active Gabapentin 800MG TAKE ONE TABLET BY MOUTH THREE TIMES DAILY Active Lasix 80 MG Orally Once a day 1 tablet 24h 20 Sep, 2017 Active Atorvastatin Calcium 10MG Orally Once a day 1 tablet 24h Active Clobetasol Prop Emollient Base 0.05 % Externally Twice a day 1 application to affected area 12h May, 10 day(s) Active Questran 4 GM Orally Once a day 1 packet mixed with water or non-carbonated drink 24h Oct, Active Celexa 20 mg Orally Once a day 1 tablet 24h Active RESULTS No Results PROCEDURES Procedure Date Ordered Result Body Site ANNUAL WELLNESS VST; PPS SUBSQT VST Feb 17, 2018 [facility] VISIT ESTABLISHED PATIENT Feb 17, 2018 INSTRUCTIONS MEDICATIONS ADMINISTERED No Known Medications MEDICAL (GENERAL) HISTORY Type Description Date Medical History chronic obstructive pulmonary disease (COPD) Medical History hyperlipidemia Medical History herniated disc Medical History hypertension Medical History headache Medical History chronic pain Medical History Anxiety disorder Medical History depression Medical History thickening on one side of heart Medical History irritable bowel syndrome Medical History Eczema Medical History Lymphocytic colitis - diagnosed by colonoscopy Medical History supraventricular tachycardia Surgical History tubal ligation 1973 Surgical History carpal tunnel release Surgical History colonoscopy 02/2016 Hospitalization History surgeries
--- OUTSIDE RECORDS SUMMARY | 2018-03-25 15:00 | XMS REPORT ---
Author Author NAYA JACKSON Organization [facility] Address [address] [place] [address] Care Team Providers Care Ranch Helper Name Role Phone NAYA JACKSON Unavailable PROBLEMS Type Condition ICD9-CM Code ZLC68-WS Code Onset Dates Condition Status SNOMED Code Problem Hypertriglyceridemia E78.1 Active 131708953 Problem Other chronic pain G89.29 Active 27372703 Problem Cervical disc disease M50.90 Active 894749682 Problem Major depressive disorder, single episode, mild F32.0 Active 20410112 Problem Irritable bowel syndrome with diarrhea K58.0 Active 894203222 Problem Paresthesia of bilateral legs R20.2 Active 123665399 Problem Ulcerative pancolitis without complication K51.00 Active 726883335 Problem Abnormal mammogram R92.8 Active 715433546 Problem Polyneuropathy G62.9 Active 07522629 Problem PTSD (post-traumatic stress disorder) F43.10 Active 10195194 Problem Major depressive disorder, recurrent episode, severe F33.2 Active 331635821518 Problem HTN (hypertension) I10 Active 75467122 Problem Depression F32.9 Active 45530809 Problem Parkinsons G20 Active 30330960 Problem Anxiety F41.9 Active 82735446 Problem COPD (chronic obstructive pulmonary disease) J44.9 Active 03790403 Problem Annular psoriasis L40.8 Active 922594087 ALLERGIES No Information ENCOUNTERS Encounter Location Date Diagnosis [facility] [address] [facility] [id number] [address] Dec, Breast density R92.2 [facility] [id number] [place] [address] 04958- 1480 Nov, Irritable bowel syndrome with diarrhea K58.0 and Alopecia L65.9 [facility] [id number] [address] Oct, Chronic diarrhea K52.9 and Acute colitis K52.9 [place] [id number] [place] [address] 46894- 1670 Oct, Chronic diarrhea K52.9 [place] [address] [place] [address] 61549- 0859 Oct, Chronic diarrhea K52.9 and Edema of both legs R60.0 [facility] [place] [id number] [place] [address] 96526- 4725 Sep, Medicare annual wellness visit, initial Z00.00 ; Parkinsons G20 ; COPD (chronic obstructive pulmonary disease) J44.9 ; Major depressive disorder, single episode, mild F32.0 ; HTN (hypertension) I10 ; Hypokalemia E87.6 and Adverse effect of carbonic-anhydrase inhibitors, benzothiadiazides and other diuretics, initial encounter T50.2X5A [facility] [place] [id number] [place] [address] 49729- 0186 Sep, Localized edema R60.0 [facility] [place] [id number] [place] [address] 25922- 2686 Sep, [place] [id number] [place] [address] 20488- 0995 Sep, Major depressive disorder, single episode, mild F32.0 ; PTSD (post-traumatic stress disorder) F43.10 and Edema of both legs R60.0 [facility] [place] [id number] [place] [address] 35031- 2238 August, Localized edema R60.0 [facility] [place] [id number] [place] [address] 77924- 5798 August, Localized edema R60.0 ; Weight gain R63.5 and Irritable bowel syndrome with diarrhea K58.0 [place] [address] [place] [address] 71284- 9946 Jul, [facility] [place] [id number] [place] [address] 38077- 6129 Jul, Elevated liver enzymes R74.8 [facility] [address] [address] 5149 Jul, Polyneuropathy G62.9 [facility] [id number] [place] [address] 59225- 5681 Jul, [facility] [id number] [place] [address] 55396- 0938 Jul, Cervical disc disease M50.90 [facility] [id number] [place] [address] 29408- 0445 Jul, Elevated liver enzymes R74.8 [facility] [place] [id number] [place] [address] 60287- 4675 Jul, Polyneuropathy G62.9 ; Ulcerative pancolitis without complication K51.00 ; Depression F32.9 ; Leg weakness, bilateral R29.898 and Paresthesia of bilateral legs R20.2 [place] [address] [place] [address] 31506- 6275 Jul, Polyneuropathy G62.9 ; Ulcerative pancolitis without complication K51.00 ; Depression F32.9 ; Leg weakness, bilateral R29.898 and Paresthesia of bilateral legs R20.2 [place] [id number] [place] [address] 92526- 5874 Jun, [facility] [place] [id number] [place] [address] 44362- 9119 Jun, Fibrous breast lumps N63.0 [facility] [place] [address] [place] [address] 81264- 5461 Jun, Ulcerative pancolitis without complication K51.00 [facility] [place] [id number] [place] [address] 59783- 3904 Jun, Abnormal mammogram R92.8 [facility] [address] [place] [address] 16165- 1215 Jun, Breast density R92.2 [facility] [address] [place] [address] 70734- 9764 Jun, [facility] [place] [id number] [place] [address] 90919- 8570 Jun, PTSD (post-traumatic stress disorder) F43.10 [facility] [place] [id number] [place] [address] 93090- 8919 May, [facility] [id number] [place] [address] 00294- 7027 May, Breast cancer screening Z12.31 and Fibrous breast lumps N63.[address] 54541- 9070 Apr, Ulcerative pancolitis without complication K51.00 [place] [id number] [place] [address] 61924- 5797 Apr, [facility] [id number] [place] [address] 62047- 7504 Apr, Ulcerative pancolitis without complication K51.00 ; Low back pain M54.5 and Other chronic pain G89.29 [facility] [place] [id number] [place] [address] 69397- 8472 Dec, Cervical disc disease M50.90 and HTN (hypertension) I10 [facility] [place] [id number] [place] [address] 27956- 1271 05 Dec, 2016 Moderate episode of recurrent major depressive disorder F33.1 and PTSD (post-traumatic stress disorder) F43.10 [facility] [place] [address] [address]- 8783 Oct, [place] [id number] [place] [address] 83809- 0895 Oct, Irritable bowel syndrome with diarrhea K58.0 [facility] [place] [id number] [place] [address] 57163- 3791 Oct, Irritable bowel syndrome with diarrhea K58.0 [facility] [place] [address] [place] [address] 58126- 8776 Sep, Diarrhea, unspecified type R19.7 ; Chronic pain G89.29 ; Hypertriglyceridemia E78.1 ; PTSD (post-traumatic stress disorder) F43.10 ; History of herniated intervertebral disc Z87.39 and Depression F32.9 [facility] [place] [id number] [place] [address] 03773- 4391 August, Moderate episode of recurrent major depressive disorder F33.1 and PTSD (post-traumatic stress disorder) F43.10 [facility] [place] [id number] [place] [address] 32914- 7323 August, [place] [id number] [place] [address] 08957- 6761 Jul, [facility] [id number] [place] [address] 09151- 4105 Jul, PTSD (post-traumatic stress disorder) F43.10 ; IBS ( irritable bowel syndrome) K58.9 ; HTN (hypertension) I10 ; Hypertriglyceridemia E78.1 ; Chronic pain G89.29 ; Anxiety F41.9 ; Depression F32.9 ; COPD (chronic obstructive pulmonary disease) J44.9 ; Irritable bowel syndrome with diarrhea K58.0 and Second degree hemorrhoids K64.1 [place] [address] [place] [address] 62963- 6062 Jul, PTSD (post-traumatic stress disorder) F43.10 [facility] [address] [place] [address] 81826- 3880 Jul, [place] [id number] [place] [address] 96620- 6514 Jun, [facility] [id number] [place] [address] 33392- 5847 Jun, HTN (hypertension) I10 [facility] [id number] [place] [address] 34855- 7147 May, Depression F32.9 ; Post traumatic stress disorder F43.10 and Screening mammogram, encounter for Z12.31 [facility] [place] [id number] [place] [address] 23216- 7837 May, [place] [id number] [place] [address] 04677- 7613 09 May, 2016 PTSD (post-traumatic stress disorder) F43.10 and Major depressive disorder in partial remission F32.4 [facility] [place] [id number] [place] [address] 51552- 1888 02 May, 2016 PTSD (post-traumatic stress disorder) F43.10 ; IBS ( irritable bowel syndrome) K58.9 ; History of herniated intervertebral disc Z87.39 ; Anxiety F41.9 ; Depression F32.9 ; Hypertriglyceridemia E78.1 ; Eczema of both hands L30.9 ; HTN (hypertension) I10 and COPD (chronic obstructive pulmonary disease) J44.9 [place] [id number] [place] [address] 85331- 2821 Apr, Major depressive disorder in partial remission F32.4 and PTSD (post-traumatic stress disorder) F43.10 [facility] [place] [id number] [place] [address] 40555- 2241 Apr, PTSD (post-traumatic stress disorder) F43.10 [place] [id number] [place] [address] 96358- 0057 Mar, IBS (irritable bowel syndrome) K58.9 ; PTSD (post-traumatic stress disorder) F43.10 ; COPD (chronic obstructive pulmonary disease) J44.9 ; History of herniated intervertebral disc Z87.39 ; HTN (hypertension) I10 ; Parkinsons G20 ; Annular psoriasis L40.8 and Hypertriglyceridemia E78.1 [place] [id number] [place] [address] 77042- 4018 Feb, [place] [address] 34167- 0303 Feb, Moderate episode of recurrent major depressive disorder F33.1 and PTSD (post-traumatic stress disorder) F43.10 [place] [address] 64161- 1559 Jan, Onychocryptosis L60.0 [place] [address] 34801- 0482 Dec, [place] [address] 35932- 3242 Dec, Dizziness R42 ; PTSD (post-traumatic stress disorder) F43.10 ; Posttraumatic stress disorder F43.10 ; IBS (irritable bowel syndrome) K58.9 ; History of herniated intervertebral disc Z87.39 ; HTN (hypertension) I10 ; Chronic pain G89.29 and Hypercholesterolemia E78.[address] 85425- 3672 Dec, [place] [address] 31727- 3806 Dec, [facility] [address] 58369 -7463 Dec, Annular psoriasis L40.8 [place] [address] 00863- 2159 Nov, [place] [address] 40801- 6932 Nov, [place] [address] 25306- 8334 Nov, HTN (hypertension) I10 ; Chronic pain G89.29 ; Annular psoriasis L40.8 ; IBS (irritable bowel syndrome) K58.9 and Vision changes H53.9 [place] [address] 95769- 1661 Oct, [place] [address] 87881- 6904 Oct, IBS (irritable bowel syndrome) K58.9 ; PTSD (post-traumatic stress disorder) F43.10 ; HTN (hypertension) I10 ; Depression F32.9 ; History of herniated intervertebral disc Z87.39 ; Anxiety F41.9 ; Chronic pain G89.29 and Hypercholesterolemia E78.0 [place] [id number] [place] [address] 55396- 8597 Oct, Major depressive disorder in partial remission F32.4 and PTSD (post-traumatic stress disorder) F43.10 [place] [id number] [place] [address] 27669- 5001 Oct, IBS (irritable bowel syndrome) K58.9 ; PTSD (post-traumatic stress disorder) F43.10 ; Major depressive disorder, recurrent episode, severe F33.2 ; Anxiety F41.9 and Impacted cerumen, unspecified laterality H61.20 [place] [id number] [place] [address] 88715- 8727 Oct, Major depressive disorder in partial remission F32.4 ; Posttraumatic stress disorder F43.10 and Anxiety F41.9 [place] [id number] [place] [address] 44293- 1600 Sep, [place] [id number] [place] [address] 82082- 7290 Sep, Anxiety F41.9 ; Major depressive disorder, recurrent episode , mild F33.0 and Posttraumatic stress disorder F43.10 [facility] [id number] [place] [address] 29490- 3593 Sep, [place] [id number] [place] [address] 54524- 3485 August, [place] [id number] [place] [address] 98545- 8067 Jul, Contact dermatitis L25.9 [place] [id number] [place] [address] 04578- 6504 05 Apr, 2016 Major depressive disorder, recurrent episode, severe F33.2 ; Posttraumatic stress disorder F43.10 and Anxiety F41.9 [place] [id number] [place] [address] 74299- 7481 Jul, [place] [id number] [place] [address] 87765- 0507 Jun, IBS (irritable bowel syndrome) K58.9 ; COPD (chronic obstructive pulmonary disease) J44.9 ; HTN (hypertension) I10 ; Chronic pain G89.29 ; Anxiety F41.9 ; PTSD (post-traumatic stress disorder) F43.10 ; Parkinsons G20 and Hypercholesterolemia E78.0 [place] [id number] [place] [address] 44374- 1897 Jun, [place] [id number] [place] [address] 56363- 4223 Jun, Onychocryptosis L60.0 and Onychomycosis B35.1 [place] [id number] [place] [address] 79866- 6813 May, [place] [id number] [place] [address] 16075- 4769 May, IBS (irritable bowel syndrome) K58.9 ; COPD (chronic obstructive pulmonary disease) J44.9 ; History of herniated intervertebral disc Z87.39 ; HTN (hypertension) I10 ; Anxiety F41.9 ; Depression F32.9 and Major depressive disorder in partial remission F32.4 [place] [address] [place] [address] 08567- 0998 08 May, 2015 IBS (irritable bowel syndrome) K58.9 ; COPD (chronic obstructive pulmonary disease) J44.9 ; History of herniated intervertebral disc Z87.39 ; HTN (hypertension) I10 ; Anxiety F41.9 ; Depression F32.9 and Major depressive disorder in partial remission F32.4 [place] [id number] [place] [address] 85296- 3088 May, [place] [id number] [place] [address] 45041- 3378 04 May, 2015 Anxiety F41.9 ; IBS (irritable bowel syndrome) K58.9 and Major depressive disorder in partial remission F32.4 [place] [id number] [place] [address] 08881- 9385 18 Apr, 2015 Encounter for screening mammogram for breast cancer Z12.[address] 33743- 0405 15 Apr, 2015 [place] [id number] [place] [address] 93264- 1585 Apr, [address] 55139- 0535 Apr, COPD (chronic obstructive pulmonary disease) J44.9 ; HTN ( hypertension) I10 ; Chronic pain G89.29 ; Anxiety F41.9 ; PTSD (post-traumatic stress disorder) F43.10 and IBS (irritable bowel syndrome) K58.9 [place] [id number] [place] [address] 57796- 1858 Apr, PTSD (post-traumatic stress disorder) F43.10 [place] [id number] [place] [address] 83368- 0540 Apr, Onychocryptosis L60.0 and Onychomycosis B35.1 [place] [id number] [place] [address] 49961- 8863 Apr, IBS (irritable bowel syndrome) K58.9 ; COPD (chronic obstructive pulmonary disease) J44.9 ; History of herniated intervertebral disc Z87.39 ; HTN (hypertension) I10 ; Chronic pain G89.29 ; Anxiety F41.9 ; Depression F32.9 ; Parkinsons G20 ; Hypercholesteremia E78.0 and Hemorrhoid K64.9 [place] [address] [place] [address] 35091- 8477 Mar, [address] [address]- 4126 Mar, Major depressive disorder, recurrent episode, severe F33.2 and Posttraumatic stress disorder F43.10 [facility] [address], [place] [address] 2546 Mar, [facility] [id number] [place] [address] 97603 2546 Mar, [facility] [address] [place] [address] [id number] [place] [address] 38286 2546 Mar, PTSD (post-traumatic stress disorder) F43.10 [place] [id number] [place] [address] 00598- 3726 Mar, Onychomycosis B35.1 and Hypertension, benign I10 [place] [address] [id number] [place] [address] 92996- 0556 Mar, Onychomycosis B35.1 and Hypertension, benign I10 [facility] [address] [id number] [place] [address] 32781- 6110 Feb, PTSD (post-traumatic stress disorder) F43.10 [place] [id number] [place] [address] 67865- 2316 Feb, [facility] [address] [address]- 0735 Feb, Major depressive disorder, recurrent episode, severe F33.2 and Posttraumatic stress disorder F43.10 [facility] [address] [address]- 8406 Jan, PTSD (post-traumatic stress disorder) F43.10 [facility] [address] [place] [id number] [place] [address] 58879- 4136 Jan, Rash R21 [facility] [address] [address]- 1606 14 Jan, 2015 PTSD (post-traumatic stress disorder) F43.10 [facility] [address], [place] [address]- 5088 Jan, [facility] [id number] [place] [address] 99645- 3899 Dec, Neuropathy 355.9 [facility] [id number] [place] [address] 65262- 8122 Dec, PTSD (post-traumatic stress disorder) F43.10 [facility] [id number] [place] [address] 24877- 3177 Dec, MDD (major depressive disorder), recurrent episode, severe 296.33 and PTSD (post-traumatic stress disorder) 309.81 [facility] [id number] [place] [address] 85456- 7769 Dec, [facility] [id number] [place] [address] 25942- 2502 Dec, Ingrown toenail 703.0 [facility] [id number] [place] [address] 80419- 8907 Dec, Posttraumatic stress disorder 309.81 [facility] [id number] [place] [address] 33016- 5062 Nov, Depressive disorder, not elsewhere classified 311 and Anxiety state, unspecified 300.00 [facility] [address] [address]- 2451 Oct, Depressive disorder, not elsewhere classified 311 and Anxiety state, unspecified 300.00 [facility] [address] [place] [address] 82265- 7070 Oct, Depressive disorder, not elsewhere classified 311 ; Anxiety state, unspecified 300.00 and No condition on Reese II V71.09 [facility] [address] [place] [address] [id number] Oct, Dental examination V72.2 [facility] [address] [place] [address] 76970- 1081 Oct, [place] [address] [id number] [place] [address]- 2953 August, [facility] [id number] [address]- 5639 August, Seizure 780.39 and IBS (irritable bowel syndrome) 564.1 [facility] [id number] [address]- 6456 Jul, [facility] [address] [id number] [place] [address]- 2036 Jul, [facility] [address] [facility] [id number] [place] [address]- 3536 Jun, [facility] [address] [facility] [id number] [place] [address]- 3806 Jun, [facility] [address] [address]- 3165 Jun, [facility] [id number] [address]- 8481 Jun, [facility] [id number] [address]- 7247 Jun, [facility] [id number] [place] [address]- 5719 Jun, [facility] [id number] [address]- 5886 Jun, [facility] [id number] [address]- 2906 Jun, [facility] [id number] [address]- 7316 Jun, [facility] [place] [facility] [address] [facility] [id number] [place] [address]- 1864 Jun, [facility] [id number] [address]- 0066 Jun, [facility] [place] [facility] [address] [id number] [place] [address]- 1339 Jun, [facility] [place] [facility] [address] [id number] [place] [address]- 8496 May, [facility] [place] [facility] [address] [id number] [place] [address]- 6466 May, [facility] [place] [facility] [address] [id number] [place] [address]- 0756 Apr, [facility] [place] [facility] [address] [id number] [place] [address]- 3530 Apr, [facility] [place] [facility] [address] [id number] [place] [address]- 2382 Mar, [facility] [place] [facility] [address] [id number] [place] [address] Mar, [facility] [place] [facility] [address] [id number] [place] [address] Mar, [facility] [place] [facility] [address] [id number] [place] [address] Mar, [facility] [place] [facility] [address] [id number] [place] [address] Mar, [facility] [place] [facility] [address] [id number] [place] [address] Mar, [facility] [place] [facility] [address] [id number] [place] [address] Mar, [facility] [place] [facility] [address] [id number] [place] [address] Mar, [facility] [place] [facility] [address] [id number] [place] [address] Mar, [facility] [place] [facility] [address] [id number] [place] [address] Mar, [facility] [place] [facility] [address] [id number] [place] [address]- [address] Mar, [facility] [place] [facility] [address] [id number] [place] [address] Mar, [facility] [place] [facility] [address] [id number] [place] [address] Mar, [facility] [place] [facility] [address] [id number] [place] [address] Mar, [facility] [place] [facility] [address] [id number] [place] [address] Mar, [facility] [place] [facility] [address] [id number] [place] [address] Mar, [facility] [place] [facility] [address] [id number] [place] [address] Mar, [facility] [place] [facility] [address] [id number] [place] [address] Mar, [facility] [place] [facility] [address] [id number] [place] [address] Mar, [facility] [place] [facility] [address] [id number] [place] [address] Feb, [facility] [place] [facility] [address] [id number] [place] [address] Feb, [facility] [place] [facility] [address] [id number], [place] [address] Feb, [facility] [place] [facility] [address] [id number], [place] [address] 18 Feb, 2014 [facility] [place] [facility] [address] [id number] [place] [address] 17 Feb, 2014 [facility] [facility] [address] [id number] [place] [address] 17 Feb, 2014 [facility] [place] [facility] [address] [id number] [place] [address] 14 Feb, 2014 [facility] [place] [facility] [address] [id number] [place] [address] 14 Feb, 2014 [facility] [place] [facility] [address] [id number] [place] [address] Jan, [facility] [place] [facility] [address] [id number] [place] [address] 1766 Jan, [facility] [place] [facility] [address] [id number] [place] [address] Nov, [facility] [place] [facility] [address] [id number] [place] [address] 299[address] Nov, [facility] [place] [facility] [address] [id number] [place] [address] Oct, [facility] [place] [facility] [address] [id number] [place] [address] Oct, [facility] [place] [facility] [address] [id number] [place] [address] 2668 Oct, [facility] [place] [facility] [address] [id number] [place] [address] 1993 Oct, [facility] [place] [facility] [address] [id number] [place] [address] 1578 Oct, [facility] [place] [facility] [address] [id number] [place] [address] 7988 Sep, [facility] [place] [facility] [address] [id number] [place] [address] 6870 Sep, [facility] [place] [facility] [address] [id number] [place] [address] 3426 August, [facility] [place] [facility] [address] [id number] [place] [address] August, [facility] [address] [id number] [place] [address] 8542 Jun, [facility] [place] [facility] [address] [id number] [place] [address] Jun, [facility] [place] [address] [id number] [place] [address]- 1168 Jun, [facility] [address] [id number] [place] [address] 99[address] Jun, [facility] [place] [address] [id number] [place] [address] Jun, [facility] [place] [facility] [address] [id number] [place] [address] 3800 Jun, [facility] [address] [id number] [place] [address]- 4954 Jun, [facility] [address] [id number] [place] [address]- 1725 Jun, [facility] [address] [id number] [place] [address]- 8416 Jun, [facility] [address] [id number] [place] [address]- 2358 Jun, [facility] [address] [id number] [place] [address]- 5669 Jun, [facility] [facility] [address] [id number] [place] [address]- 9893 Jun, [facility] [address] [id number] [place] [address]- 6561 Jun, [facility] [address] [id number] [place] [address] 3060 Jun, [facility] [address] [id number] [place] [address] 2801 May, [facility] [address] [id number] [place] [address] 3571 May, [facility] [address] [id number] [place] [address] 4029 Apr, [facility] [address] [id number], [place] [address] Apr, [facility] [address] [id number] [place] [address] 2073 Mar, [facility] [address] [id number] [place] [address] 7587 Mar, [facility] [address] [id number] [place] [address] Feb, [facility] [address] [id number] [place] [address]- 9802 Feb, [facility] [address] [id number] [place] [address]- 6763 Feb, [facility] [address] [id number] [place] [address]- 4736 Feb, [facility] [address] [id number] [place] [address]- 6731 Feb, [facility] [address] [id number] [place] [address] 9319 Feb, [facility] [address] [id number], [place] [address] 24[address] Feb, [facility] [address] [id number] [place] [address]- 9362 Jan, [facility] [address] [id number], [place] [address] 1465 Jan, [facility] [address] [id number], [place] [address] 1991 Dec, [facility] [address] [id number], [place] [address]798 Dec, [facility] [address] [id number] [place] [address]- 6012 Nov, [facility] [address] [id number] [place] [address]- 0746 Nov, [facility] [address] [id number] [place] [address] 254 Oct, [facility] [address] [id number] [place] [address]- 4336 Sep, [facility] [address] [id number] [place] [address] 2546 Sep, [facility] [address] [id number] [place] [address]- 4932 August, [facility] [address] [id number] [place] [address]- 4826 August, [facility] [address] [id number] [place] [address]- [address] August, [facility] [address] [id number] [place] [address] 4770 Jul, [facility] [address] [id number] [place] [address] May, [facility] [address] [id number] [place] [address] May, [facility] [address] [id number] [place] [address] 1587 Apr, [facility] [address] [id number] [place] [address]- 9720 Apr, [facility] [address] [id number] [place] [address] 5034 Feb, [facility] [address] [id number] [place] [address]- 2549 Feb, [facility] [address] [id number] [place] [address]- 7066 Jan, [facility] [address] [id number] [place] [address]- 6766 Jan, [facility] [address] [id number] [place] [address]- 4225 Jan, [facility] [address] [id number] [place] [address]- 5784 Nov, [facility] [address] [id number] [place] [address]- 3709 Nov, [facility] [address] [id number] [place] [address]- 2067 Nov, [facility] [address] [id number] [place] [address]- 4548 Nov, [facility] [address] [id number] [place] [address]- 3623 Nov, [facility] [address] [id number] [place] [address]- 4490 Oct, [facility] [address] [id number] [place] [address]- 2096 Oct, [facility] [address] [id number] [place] [address]- 2713 Oct, [facility] [address] [id number] [place] [address]- 8949 Oct, [facility] [address] [id number] [place] [address]- 9653 Oct, [facility] [address] [id number] [place] [address]- 6519 Oct, [facility] [address] [id number] [place] [address]- 2492 Oct, [facility] [address] [id number] [place] [address]- 6328 Sep, [facility] [address] [id number] [place] [address]- 5697 Sep, [facility] [address] [id number] [place] [address]- 5198 Sep, [facility] [address] [id number] [place] [address]- 6643 August, [facility] [address] [id number] [place] [address]- 4993 30 Jul, 2011 [facility] [address] [id number] [place] [address]- 1389 Jul, [facility] [address] [id number] [place] [address]- 4906 Jul, [facility] [address] [id number] [place] [address]- 3166 16 Jul, 2011 [facility] [address] [id number] [place] [address]- 7847 Jul, [facility] [address] [id number] [place] [address]- 0180 Jun, [facility] [address] [id number] [place] [address]- 6604 May, [facility] [address] [id number] [place] [address]- 0315 Apr, [facility] [address] [id number] [place] [address]- 0161 Apr, [facility] [address] [id number] [place] [address]- 7126 Apr, [facility] [address] [id number] [place] [address]- 4327 Apr, [facility] [address] [id number] [place] [address]- 5025 Apr, [facility] [address] [id number] [place] [address] Apr, [facility] [address] [id number] [place] [address]- 5066 Mar, [facility] [address] [id number] [place] [address] Mar, [facility] [address] [id number] [place] [address]- 4410 Feb, [facility] [address] [id number] [place] [address]- 8037 Nov, [facility] [address] [id number] [place] [address]- 6570 Jun, [facility] [address] [id number] [place] [address]- 3820 Apr, [facility] [address] [id number] [place] [address]- 3647 Feb, [facility] [address] [id number] [place] [address]- 7510 Jan, [facility] [address] [id number] [place] [address]- 2107 Jan, [facility] [address] [id number] [place] [address]- 8934 Jan, [facility] [address] [id number] [place] [address]- 4381 Jan, [facility] [address] [id number] [place] [address]- 4971 Nov, [facility] [address] [id number] [place] [address]- 5691 Nov, [facility] [address] [id number] [place] [address]- 4107 Mar, [facility] [address] [id number] [place] [address]- 5445 Mar, [facility] [address] [id number] [place] [address]- 4089 Feb, [facility] [address] [id number] [place] [address]- 2546 Feb, [facility] [address] [id number] [place] [address]- 7536 Jan, [facility] [address] [facility] [id number] [place] [address]- 6[address] May, IMMUNIZATIONS No Known Immunizations SOCIAL HISTORY Never Assessed REASON FOR VISIT mammogram PLAN OF CARE VITAL SIGNS MEDICATIONS Unknown Medications RESULTS No Results PROCEDURES No Known procedures INSTRUCTIONS MEDICATIONS ADMINISTERED No Known Medications MEDICAL [...]
--- OUTSIDE RECORDS SUMMARY | 2018-03-25 15:00 | XMS REPORT ---
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 Name Role Phone NAYA JACKSON Unavailable PROBLEMS Type Condition ICD9-CM Code [id number] Code Onset Dates Condition Status SNOMED Code Problem Hypertriglyceridemia E78.1 Active 135439235 Problem Other chronic pain G89.29 Active 56357654 Problem Cervical disc disease M50.90 Active 512257638 Problem Major depressive disorder, single episode, mild F32.0 Active 96758300 Problem Irritable bowel syndrome with diarrhea K58.0 Active 561468563 Problem Paresthesia of bilateral legs R20.2 Active 075341750 Problem Ulcerative pancolitis without complication K51.00 Active 448941372 Problem Abnormal mammogram R92.8 Active 250219069 Problem Polyneuropathy G62.9 Active 59223685 Problem PTSD (post-traumatic stress disorder) F43.10 Active 82592260 Problem Major depressive disorder, recurrent episode, severe F33.2 Active 671098044311 Problem HTN (hypertension) I10 Active 13586695 Problem Depression F32.9 Active 05003048 Problem Parkinsons G20 Active 65146448 Problem Anxiety F41.9 Active 19789501 Problem COPD (chronic obstructive pulmonary disease) J44.9 Active 46567189 Problem Annular psoriasis L40.8 Active 953537281 ALLERGIES Substance Reaction Event Type Date Status Latex Unknown Drug Allergy Nov, Active Budesonide rash/swelling Drug Allergy Nov, Active ENCOUNTERS Encounter Location Date Diagnosis [facility] [id number] [address] Dec, Breast density R92.2 [facility] [address], [place] [address] Nov, Irritable bowel syndrome with diarrhea K58.0 and Alopecia L65.9 [facility] [address], [place] [address] Oct, Chronic diarrhea K52.9 and Acute colitis K52.9 [place] [id number] [place] [address] 83854- 7454 Oct, Chronic diarrhea K52.9 [place] [id number] [place] [address] 80708- 4989 Oct, Chronic diarrhea K52.9 and Edema of both legs R60.0 [place] [id number] [place] [address] 35696- 9791 Sep, Medicare annual wellness visit, initial Z00.00 ; Parkinsons G20 ; COPD (chronic obstructive pulmonary disease) J44.9 ; Major depressive disorder, single episode, mild F32.0 ; HTN (hypertension) I10 ; Hypokalemia E87.6 and Adverse effect of carbonic-anhydrase inhibitors, benzothiadiazides and other diuretics, initial encounter T50.2X5A [place] [id number] [place] [address] 57382- 8205 Sep, Localized edema R60.0 [place] [id number] [place] [address] 78146- 5881 Sep, [place] [id number] [place] [address] 16249- 2828 Sep, Major depressive disorder, single episode, mild F32.0 ; PTSD (post-traumatic stress disorder) F43.10 and Edema of both legs R60.0 [place] [address], [place] [address] 5796 August, Localized edema R60.0 [place] [id number] [place] [address] 51966- 8064 August, Localized edema R60.0 ; Weight gain R63.5 and Irritable bowel syndrome with diarrhea K58.0 [place] [id number] [place] [address] 96675- 5956 Jul, [place] [id number] [place] [address] 00783- 6492 Jul, Elevated liver enzymes R74.8 [place] [id number] [place] [address] 83762- 0794 Jul, Polyneuropathy G62.9 [place] [id number] [place] [address] 39144- 4675 Jul, [place] [id number] [place] [address] 81083- 4873 Jul, Cervical disc disease M50.90 [place] [id number] [place] [address] 63743- 3979 Jul, Elevated liver enzymes R74.8 [place] [id number] [place] [address] 24134- 5541 Jul, Polyneuropathy G62.9 ; Ulcerative pancolitis without complication K51.00 ; Depression F32.9 ; Leg weakness, bilateral R29.898 and Paresthesia of bilateral legs R20.2 [place] [address] [place] [address] 15726- 9268 Jul, Polyneuropathy G62.9 ; Ulcerative pancolitis without complication K51.00 ; Depression F32.9 ; Leg weakness, bilateral R29.898 and Paresthesia of bilateral legs R20.2 [place] [address] [place] [address] 37996- 9695 Jun, [place] [id number] [place] [address] 06510- 4351 Jun, Fibrous breast lumps N63.0 [place] [id number] [place] [address] 92567- 5069 Jun, Ulcerative pancolitis without complication K51.00 [place] [id number] [place] [address] 42864- 1471 Jun, Abnormal mammogram R92.8 [place] [id number] [place] [address] 92523- 3497 Jun, Breast density R92.2 [place] [id number] [place] [address] 79559- 4330 Jun, [place] [id number] [place] [address] 70852- 6077 Jun, PTSD (post-traumatic stress disorder) F43.10 [place] [id number] [place] [address] 93183- 5211 May, [place] [id number] [place] [address] 54074- 1554 May, Breast cancer screening Z12.31 and Fibrous breast lumps N63.0 [place] [id number] [place] [address] 76437- 0870 Apr, Ulcerative pancolitis without complication K51.00 [place] [id number] [place] [address] 36504- 2091 Apr, [place] [id number] [place] [address] 23608- 4311 Apr, Ulcerative pancolitis without complication K51.00 ; Low back pain M54.5 and Other chronic pain G89.29 [address] [address] [place] [address] 65233- 0128 Dec, Cervical disc disease M50.90 and HTN (hypertension) I10 [place] [id number] [place] [address] 63302- 6436 05 Dec, 2016 Moderate episode of recurrent major depressive disorder F33.1 and PTSD (post-traumatic stress disorder) F43.10 [place] [id number] [place] [address] 94426- 6365 Oct, [place] [id number] [place] [address] 24923- 4069 Oct, Irritable bowel syndrome with diarrhea K58.0 [place] [id number] [place] [address] 31937- 5988 Oct, Irritable bowel syndrome with diarrhea K58.0 [id number] [place] [address] 79145- 1123 Sep, Diarrhea, unspecified type R19.7 ; Chronic pain G89.29 ; Hypertriglyceridemia E78.1 ; PTSD (post-traumatic stress disorder) F43.10 ; History of herniated intervertebral disc Z87.39 and Depression F32.9 [place] [id number] [place] [address] 63989- 0689 August, Moderate episode of recurrent major depressive disorder F33.1 and PTSD (post-traumatic stress disorder) F43.10 [id number] [place] [address] 69859- 4591 August, [id number] [place] [address] 91785- 4433 Jul, [id number] [place] [address] 93566- 4528 Jul, PTSD (post-traumatic stress disorder) F43.10 ; IBS ( irritable bowel syndrome) K58.9 ; HTN (hypertension) I10 ; Hypertriglyceridemia E78.1 ; Chronic pain G89.29 ; Anxiety F41.9 ; Depression F32.9 ; COPD (chronic obstructive pulmonary disease) J44.9 ; Irritable bowel syndrome with diarrhea K58.0 and Second degree hemorrhoids K64.1 [place] [address] [place] [address] 87860- 6082 Jul, PTSD (post-traumatic stress disorder) F43.10 [id number] [place] [address] 54384- 9462 Jul, [id number] [place] [address] 28510- 0323 Jun, [id number] [place] [address] 83195- 4354 Jun, HTN (hypertension) I10 [place] [address] [place] [address] 99663- 9130 May, Depression F32.9 ; Post traumatic stress disorder F43.10 and Screening mammogram, encounter for Z12.31 [place] [id number] [place] [address] 37086- 4568 May, [place] 86651- 9663 May, PTSD (post-traumatic stress disorder) F43.10 and Major depressive disorder in partial remission F32.4 [place] [address] 09683- 7472 May, PTSD (post-traumatic stress disorder) F43.10 ; IBS ( irritable bowel syndrome) K58.9 ; History of herniated intervertebral disc Z87.39 ; Anxiety F41.9 ; Depression F32.9 ; Hypertriglyceridemia E78.1 ; Eczema of both hands L30.9 ; HTN (hypertension) I10 and COPD (chronic obstructive pulmonary disease) J44.9 [place] [id number] [place] [address] 27827- 9907 Apr, Major depressive disorder in partial remission F32.4 and PTSD (post-traumatic stress disorder) F43.10 [place] [id number] [place] [address] 54097- 6360 Apr, PTSD (post-traumatic stress disorder) F43.10 [place] [id number] [place] [address] 05426- 3398 Mar, IBS (irritable bowel syndrome) K58.9 ; PTSD (post-traumatic stress disorder) F43.10 ; COPD (chronic obstructive pulmonary disease) J44.9 ; History of herniated intervertebral disc Z87.39 ; HTN (hypertension) I10 ; Parkinsons G20 ; Annular psoriasis L40.8 and Hypertriglyceridemia E78.1 [place] [id number] [place] [address] 50850- 2911 Feb, [facility] [id number] [place] [address] 13076- 3454 Feb, Moderate episode of recurrent major depressive disorder F33.1 and PTSD (post-traumatic stress disorder) F43.10 [place] [id number] [place] [address] 57879- 3442 Jan, Onychocryptosis L60.0 [facility] [address] 65466- 4867 30 Dec, 2015 [place] [id number] [place] [address] 88420- 0021 Dec, Dizziness R42 ; PTSD (post-traumatic stress disorder) F43.10 ; Posttraumatic stress disorder F43.10 ; IBS (irritable bowel syndrome) K58.9 ; History of herniated intervertebral disc Z87.39 ; HTN (hypertension) I10 ; Chronic pain G89.29 and Hypercholesterolemia E78.0 [place] [address] 64778- 7536 Dec, [place] [address] 50900- 8968 Dec, [facility] [id number] [place] [address] 34060 -2796 Dec, Annular psoriasis L40.8 [place] [id number] [place] [address] 09386- 0064 Nov, [address] [place] 87996- 9300 Nov, [place] [address] 74646- 7898 Nov, HTN (hypertension) I10 ; Chronic pain G89.29 ; Annular psoriasis L40.8 ; IBS (irritable bowel syndrome) K58.9 and Vision changes H53.9 [facility] [address] 52330- 1304 Oct, [address] [place] [place] [address] 15170- 3062 Oct, IBS (irritable bowel syndrome) K58.9 ; PTSD (post-traumatic stress disorder) F43.10 ; HTN (hypertension) I10 ; Depression F32.9 ; History of herniated intervertebral disc Z87.39 ; Anxiety F41.9 ; Chronic pain G89.29 and Hypercholesterolemia E78.0 [place] [id number] [place] [address] 85461- 2853 Oct, Major depressive disorder in partial remission F32.4 and PTSD (post-traumatic stress disorder) F43.10 [place] [id number] [place] [address] 94597- 5927 Oct, IBS (irritable bowel syndrome) K58.9 ; PTSD (post-traumatic stress disorder) F43.10 ; Major depressive disorder, recurrent episode, severe F33.2 ; Anxiety F41.9 and Impacted cerumen, unspecified laterality H61.20 [place] [id number] [place] [address] 84075- 7381 Oct, Major depressive disorder in partial remission F32.4 ; Posttraumatic stress disorder F43.10 and Anxiety F41.9 [place] [address] [place] [address] 07188- 8583 Sep, [place] [address] [place] [address] 75481- 9049 Sep, Anxiety F41.9 ; Major depressive disorder, recurrent episode , mild F33.0 and Posttraumatic stress disorder F43.10 [place] [address] [place] [address] 95539- 3624 Sep, [place] [id number] [place] [address] 50723- 2463 August, [place] [address] [place] [address] 36602- 3658 Jul, Contact dermatitis L25.9 [place] [id number] [place] [address] 49858- 5181 Jul, Major depressive disorder, recurrent episode, severe F33.2 ; Posttraumatic stress disorder F43.10 and Anxiety F41.9 [place] [id number] [place] [address] 59113- 6418 Jul, [place] [id number] [place] [address] 54767- 9252 Jun, IBS (irritable bowel syndrome) K58.9 ; COPD (chronic obstructive pulmonary disease) J44.9 ; HTN (hypertension) I10 ; Chronic pain G89.29 ; Anxiety F41.9 ; PTSD (post-traumatic stress disorder) F43.10 ; Parkinsons G20 and Hypercholesterolemia E78.0 [id number] [place] [address] 45214- 9992 Jun, [address] 56771- 2583 Jun, Onychocryptosis L60.0 and Onychomycosis B35.1 [place] [address] [place] [address] 39194- 8498 May, [id number] [place] [address] 65612- 8865 May, IBS (irritable bowel syndrome) K58.9 ; COPD (chronic obstructive pulmonary disease) J44.9 ; History of herniated intervertebral disc Z87.39 ; HTN (hypertension) I10 ; Anxiety F41.9 ; Depression F32.9 and Major depressive disorder in partial remission F32.4 [place] [id number] [place] [address] 47883- 2931 08 May, 2015 IBS (irritable bowel syndrome) K58.9 ; COPD (chronic obstructive pulmonary disease) J44.9 ; History of herniated intervertebral disc Z87.39 ; HTN (hypertension) I10 ; Anxiety F41.9 ; Depression F32.9 and Major depressive disorder in partial remission F32.4 [address] [place] [address]- 9830 04 May, 2015 [place] [id number] [place] [address] 99329- 2648 04 May, 2015 Anxiety F41.9 ; IBS (irritable bowel syndrome) K58.9 and Major depressive disorder in partial remission F32.4 [place] [id number] [place] [address] 92979- 9331 18 Apr, 2015 Encounter for screening mammogram for breast cancer Z12.31 [place] [address] 44367- 4590 15 Apr, 2015 [place] [address] 36165- 9547 Apr, [place] [address] 90801- 6283 Apr, COPD (chronic obstructive pulmonary disease) J44.9 ; HTN ( hypertension) I10 ; Chronic pain G89.29 ; Anxiety F41.9 ; PTSD (post-traumatic stress disorder) F43.10 and IBS (irritable bowel syndrome) K58.[address] 30473- 1611 Apr, PTSD (post-traumatic stress disorder) F43.10 [place] [id number] [place] [address] 05274- 0715 Apr, Onychocryptosis L60.0 and Onychomycosis B35.1 [place] [address] [place] [address] 57433- 6952 Apr, IBS (irritable bowel syndrome) K58.9 ; COPD (chronic obstructive pulmonary disease) J44.9 ; History of herniated intervertebral disc Z87.39 ; HTN (hypertension) I10 ; Chronic pain G89.29 ; Anxiety F41.9 ; Depression F32.9 ; Parkinsons G20 ; Hypercholesteremia E78.0 and Hemorrhoid K64.[address] [place] [address]- 3594 Mar, [facility] [id number] [place] [address] 63229- 7836 Mar, Major depressive disorder, recurrent episode, severe F33.2 and Posttraumatic stress disorder F43.10 [facility] [id number] [place] [address] 61418- 8056 Mar, [facility] [id number] [place] [address] 94110- 2126 Mar, [facility] [id number] [place] [address] 41557- 7026 Mar, PTSD (post-traumatic stress disorder) F43.10 [place] [id number] [place] [address] 82624- 2236 Mar, Onychomycosis B35.1 and Hypertension, benign I10 [facility] [id number] [place] [address] 21670- 9316 Mar, Onychomycosis B35.1 and Hypertension, benign I10 [facility] [id number] [place] [address] 28460- 6465 Feb, PTSD (post-traumatic stress disorder) F43.10 [place] [address] [place] [address] 36589- 5487 Feb, [facility] [id number] [place] [address] 37678- 7016 Feb, Major depressive disorder, recurrent episode, severe F33.2 and Posttraumatic stress disorder F43.10 [facility] [address] [place] [address] 61764- 8936 Jan, PTSD (post-traumatic stress disorder) F43.10 [facility] [address], [place] [address]- 8786 26 Jan, 2015 Rash R21 [facility] [id number] [place] [address] 46182- 5557 Jan, PTSD (post-traumatic stress disorder) F43.10 [facility] [address], [place] [address]- 3234 Jan, [facility] [address] [place] [address] 21085- 9395 Dec, Neuropathy 355.9 [facility] [id number] [place] [address] 995951- 9380 Dec, PTSD (post-traumatic stress disorder) F43.10 [facility] [address] [place] [address] 708862- 4335 29 Dec, 2014 MDD (major depressive disorder), recurrent episode, severe 296.33 and PTSD (post-traumatic stress disorder) 309.81 [facility] [id number] [place] [address] 53866- 1044 Dec, [facility] [id number] [place] [address] 45989- 0044 Dec, Ingrown toenail 703.0 [facility] [id number] [place] [address] 57335- 9766 02 Dec, 2014 Posttraumatic stress disorder 309.81 [facility] [id number] [place] [address] 51195- 3698 Nov, Depressive disorder, not elsewhere classified 311 and Anxiety state, unspecified 300.00 [facility] [address] [place] [address] 79030- 8262 Oct, Depressive disorder, not elsewhere classified 311 and Anxiety state, unspecified 300.00 [facility] [address] [place] [address] 87128- 9333 Oct, Depressive disorder, not elsewhere classified 311 ; Anxiety state, unspecified 300.00 and No condition on [place] II V71.09 [facility] [address] [facility] [id number] [id number] Oct, Dental examination V72.2 [facility] [address], [place] [address]- 4104 Oct, [facility] [address] [facility] [id number], [place] [address]- 4005 August, [facility] [id number] [address]- 1563 August, Seizure 780.39 and IBS (irritable bowel syndrome) 564.[address] [facility] [address] [facility] [id number], [place] [address]- 5571 Jul, [facility] [address] [facility] [id number] [place] [address]- 2212 Jul, [facility] [address] [facility] [id number], [place] [address]- 8598 Jun, [facility] [address] [address]- 0186 Jun, [facility] [id number] [address]- 0273 Jun, [facility] [id number] [place] [address]- 5062 Jun, [facility] [id number] [address]- 5383 Jun, [facility] [address], [place] [address]- 2508 Jun, [facility] [place] [facility] [address] [facility] [id number], [place] [address]- 9826 Jun, [facility] [place] [facility] [address] [facility] [id number] [place] [address]- 6228 Jun, [facility] [place] [facility] [address] [facility] [id number], [place] [address]- 9147 Jun, [facility] [place] [facility] [address] [facility] [id number], [place] [address]- 3828 Jun, [facility] [address] [facility] [id number] [place] [address]- [address] [facility] [address] [id number] [place] [address]- 3736 Jun, [facility] [address] [id number] [place] [address]- 9736 May, [facility] [address] [id number] [place] [address]- 4606 May, [facility] [address] [id number] [place] [address]- 3418 Apr, [facility] [address] [id number] [place] [address]- [address] Apr, [facility] [address] [id number] [place] [address]- 0244 Mar, [facility] [address] [id number] [place] [address]- 8330 Mar, [facility] [address] [id number] [place] [address]- 3972 Mar, [facility] [address] [id number] [place] [address]- 2310 Mar, [facility] [address] [id number] [place] [address]- 4961 Mar, [facility] [address] [id number] [place] [address] Mar, [facility] [place] [facility] [address] [id number] [place] [address] Mar, [facility] [place] [facility] [address] [id number] [place] [address] Mar, [facility] [place] [facility] [address] [id number] [place] [address] Mar, [facility] [place] [facility] [address] [id number] [place] [address] Mar, [facility] [place] [facility] [address] [id number] [place] [address] Mar, [facility] [place] [facility] [address] [id number] [place] [address] Mar, [facility] [place] [facility] [address] [id number] [place] [address] Mar, [facility] [place] [facility] [address] [id number] [place] [address] Mar, [facility] [place] [facility] [address] [id number] [place] [address] Mar, [facility] [place] [facility] [address] [id number] [place] [address] Mar, [facility] [place] [facility] [address] [id number] [place] [address]- [address] Mar, [facility] [place] [facility] [address] [id number] [place] [address]- [address] Mar, [facility] [place] [facility] [address] [id number] [place] [address]- [address] Mar, [facility] [place] [facility] [address] [id number] [place] [address]- [address] Feb, [facility] [place] [facility] [address] [id number] [place] [address]- [address] Feb, [facility] [place] [facility] [address] [id number] [place] [address] Feb, [facility] [place] [facility] [address] [id number] [place] [address] Feb, [facility] [place] [facility] [address] [id number] [place] [address] Feb, [facility] [place] [facility] [address] [id number] [place] [address] Feb, [facility] [place] [facility] [address] [id number] [place] [address] Feb, [facility] [place] [facility] [address] [id number] [place] [address] Feb, [facility] [place] [facility] [address] [id number] [place] [address] 97[address] Jan, [facility] [place] [facility] [address] [id number] [place] [address] Jan, [facility] [place] [facility] [address] [id number] [place] [address] Nov, [facility] [place] [facility] [address] [id number] [place] [address] Nov, [facility] [place] [facility] [address] [id number] [place] [address] 62[address] Oct, [facility] [place] [facility] [address] [id number] [place] [address] 69[address] Oct, [facility] [place] [facility] [address] [id number] [place] [address] 2708 Oct, [facility] [place] [facility] [address] [id number] [place] [address] Oct, [facility] [place] [facility] [address] [id number] [place] [address] 388[address] Oct, [facility] [place] [facility] [address] [id number] [place] [address] 38[address] Sep, [facility] [place] [facility] [address] [id number] [place] [address] Sep, [facility] [place] [facility] [address] [id number] [place] [address] August, [facility] [place] [facility] [address] [id number] [place] [address] 117[address] August, [facility] [place] [facility] [address] [id number] [place] [address] Jun, [facility] [place] [facility] [address] [id number] [place] [address] 24 Jun, 2013 [facility] [place] [facility] [address] [id number] [place] [address]- [address]177 11 Jun, 2013 [facility] [place] [facility] [address] [id number] [place] [address] 8[address] Jun, [facility] [place] [facility] [address] [id number] [place] [address] 10 Jun, 2013 [facility] [place] [facility] [address] [id number] [place] [address]24 10 Jun, 2013 [facility] [place] [facility] [address] [id number] [place] [address]393 07 Jun, 2013 [facility] [place] [facility] [address] [id number] [place] [address] 4470 Jun, [facility] [place] [facility] [address] [id number] [place] [address] 4641 Jun, [facility] [place] [facility] [address] [id number] [place] [address] 07 Jun, 2013 [facility] [place] [facility] [address] [id number] [place] [address] 1595 04 Jun, 2013 [facility] [place] [facility] [address] [id number] [place] [address]257 Jun, [facility] [place] [facility] [address] [id number] [place] [address] 3[address] Jun, [facility] [place] [facility] [address] [id number] [place] [address] 8601 Jun, [facility] [place] [facility] [address] [id number] [place] [address] 5900 May, [facility] [place] [facility] [address] [id number] [place] [address] May, [facility] [place] [facility] [address] [id number] [place] [address] Apr, [facility] [place] [facility] [address] [id number] [place] [address] Apr, [facility] [place] [facility] [address] [id number] [place] [address] 20[address] Mar, [facility] [place] [facility] [address] [facility] [id number] [place] [address] 0071 Mar, [facility] [place] [facility] [address] [id number] [place] [address] 3197 Feb, [facility] [place] [facility] [address] [id number] [place] [address] 8798 Feb, [facility] [place] [facility] [address] [id number] [place] [address] 4471 Feb, [facility] [place] [facility] [address] [id number] [place] [address] 67[address] Feb, [facility] [place] [facility] [address] [id number], [place] [address] 94[address] Feb, [facility] [place] [facility] [address] [id number] [place] [address] 6728 Feb, [facility] [place] [facility] [address] [id number], [place] [address] Feb, [facility] [place] [facility] [address] [id number], [place] [address] 67[address] Jan, [facility] [place] [facility] [address] [id number], [place] [address] Jan, [facility] [place] [facility] [address] [id number], [place] [address] 6[address] Dec, [facility] [place] [facility] [address] [id number], [place] [address] 65[address] Dec, [facility] [place] [facility] [address] [id number], [place] [address] 7[address] Nov, [facility] [place] [facility] [address] [id number] [place] [address]649 Nov, [facility] [address] [id number] [place] [address] 3180 Oct, [facility] [address] [id number] [place] [address] 6936 Sep, [facility] [address] [id number] [place] [address] 2949 Sep, [facility] [place] [facility] [address] [id number] [place] [address] 5589 August, [facility] [address] [id number] [place] [address] 1878 August, [facility] [address] [id number] [place] [address] 3701 August, [facility] [address] [id number] [place] [address] 9652 Jul, [facility] [address] [id number] [place] [address] 2215 May, [facility] [address] [id number] [place] [address] 5466 May, [facility] [address] [id number] [place] [address] 2157 Apr, [facility] [address] [id number] [place] [address] 9397 Apr, [facility] [address] [id number] [place] [address] 2855 Feb, [facility] [place] [facility] [address] [id number] [place] [address] 2432 Feb, [facility] [place] [facility] [address] [id number] [place] [address]- 1569 Jan, [facility] [address] [id number] [place] [address] 0734 Jan, [facility] [place] [facility] [address] [id number] [place] [address]- 7503 Jan, [facility] [place] [facility] [address] [id number] [place] [address]- 8292 Nov, [facility] [place] [facility] [address] [id number] [place] [address]- 7521 Nov, [facility] [place] [facility] [address] [id number] [place] [address]- 0465 Nov, [facility] [place] [facility] [address] [id number] [place] [address]- 1669 Nov, [facility] [place] [facility] [address] [id number] [place] [address]- 2877 Nov, [facility] [place] [facility] [address] [id number] [place] [address]- 5458 Oct, [facility] [place] [facility] [address] [id number] [place] [address]- 6068 Oct, [facility] [place] [facility] [address] [id number] [place] [address]- 4613 Oct, [facility] [place] [facility] [address] [id number] [place] [address]- 3308 Oct, [facility] [place] [facility] [address] [id number] [place] [address]- 0526 Oct, [facility] [place] [facility] [address] [id number] [place] [address]- 3618 Oct, [facility] [place] [facility] [address] [id number] [place] [address]- 5907 Oct, [facility] [place] [facility] [address] [id number] [place] [address]- 4220 Sep, [facility] [place] [facility] [address] [id number] [place] [address]- 7704 Sep, [facility] [place] [facility] [address] [id number], [place] [address]- [address]238 Sep, [facility] [address] [id number] [place] [address]- 0526 August, [facility] [place] [facility] [address] [id number] [place] [address]- 3850 30 Jul, 2011 [facility] [place] [facility] [address] [id number] [place] [address]- 8019 Jul, [facility] [place] [facility] [address] [id number] [place] [address]- 6404 Jul, [facility] [place] [facility] [address] [id number] [place] [address]- 9749 Jul, [facility] [place] [facility] [address] [id number] [place] [address]- 8404 Jul, [facility] [id number] [place] [place] [address] Jun, [facility] [place] [facility] [address] [id number] [place] [address]- 0419 May, [facility] [place] [facility] [address] [id number] [place] [address]- 3158 Apr, [facility] [place] [facility] [address] [id number] [place] [address]- 7430 Apr, [facility] [place] [facility] [address] [id number] [place] [address]- 0620 Apr, [facility] [place] [facility] [address] [id number] [place] [address]- 0935 Apr, [facility] [place] [facility] [address] [id number] [place] [address]- 1686 Apr, [facility] [place] [facility] [address] [facility] [id number] [place] [address]- 5037 Apr, [facility] [place] [facility] [address] [facility] [id number] [place] [address]- 1317 Mar, [facility] [place] [facility] [address] [id number] [place] [address]- 5813 06 Mar, 2011 [facility] [place] [facility] [address] [id number] [place] [address]- 2545 Feb, [facility] [place] [facility] [address] [id number] [place] [address]- 3933 Nov, [facility] [place] [facility] [address] [id number] [place] [address]- 5064 Jun, [facility] [place] [facility] [address] [id number] [place] [address]- 2213 Apr, [facility] [place] [facility] [address] [id number] [place] [address]- 2018 Feb, [facility] [place] [facility] [address] [id number] [place] [address]- 9092 Jan, [facility] [place] [facility] [address] [id number] [place] [address]- 7677 Jan, [facility] [place] [facility] [address] [id number] [place] [address]- 5700 Jan, [facility] [place] [facility] [address] [id number] [place] [address]- 0172 Jan, [facility] [place] [facility] [address] [id number] [place] [address]- 6536 Nov, [facility] [place] [facility] [address] [id number] [place] [address]- 7466 Nov, [facility] [place] [facility] [address] [id number] [place] [address]- 6903 Mar, [facility] [place] [facility] [address] [id number] [place] [address]- 9286 Mar, [facility] [place] [facility] [address] [id number] [place] [address]- 6706 Feb, [facility] [place] [facility] [address] [id number] [place] [address]- 8747 Feb, [facility] [address] [facility] [id number] [place] [address]- 2546 Jan, [facility] [address] [facility] [id number], [place] [address]- 2546 May, IMMUNIZATIONS No Known Immunizations SOCIAL HISTORY Never Assessed REASON FOR VISIT Diarrhea Pt in for fu on medication changes and lab work MAAME Elizalde PLAN OF CARE VITAL SIGNS Height 64 in 2017-11-26 Weight 154.9 lbs 2017-11-26 Temperature 98.3 degrees Fahrenheit 2017-11-26 Heart Rate 82 bpm 2017-11-26 Respiratory Rate 20 2017-11-26 BMI 26.59 kg/m2 2017-11-26 Blood pressure systolic 108 mmHg 2017-11-26 Blood pressure diastolic 62 mmHg 2017-11-26 MEDICATIONS Medication Instructions Dosage Frequency Start Date End Date Duration Status Potassimin 20 meq Orally 2 times a day 1 tablet 12h Active Celexa 20 mg Orally Once a day 1 tablet 24h Active Gabapentin 800MG TAKE ONE TABLET BY MOUTH THREE TIMES DAILY Active Questran 4 GM Orally Once a day 1 packet mixed with water or non-carbonated drink 24h Oct, Active Parafon Forte DSC 500 mg Orally Three times a day 1 tablet 8h Apr, 30 Active Verapamil HCl ER 240 MG Orally Once a day 1 tablet 24h Active Lasix 80 MG Orally Once a day 1 tablet 24h Sep, Active Atorvastatin Calcium 10MG Orally Once a day 1 tablet 24h Active RESULTS No Results PROCEDURES Procedure Date Ordered Result Body Site [facility] VISIT ESTABLISHED PATIENT Nov 26, 2017 LAB NOT BILLED BY [facility] Nov 26, 2017 INSTRUCTIONS MEDICATIONS ADMINISTERED No Known Medications MEDICAL [...] History supraventricular tachycardia Surgical History tubal ligation 1974 Surgical History carpal tunnel release Surgical History colonoscopy 02/2016 Hospitalization History surgeries
--- OUTSIDE RECORDS SUMMARY | 2018-03-25 15:01 | XMS REPORT ---
Author Author NAYA JACKSON Organization [facility] Address [address] [place] [address] Care Team Providers Care Leaf Tier Name Role Phone NAYA JACKSON Unavailable PROBLEMS Type Condition ICD9-CM Code YLI03-UL Code Onset Dates Condition Status SNOMED Code Problem Hypertriglyceridemia E78.1 Active 804988664 Problem Other chronic pain G89.29 Active 11018562 Problem Cervical disc disease M50.90 Active 867882636 Problem Major depressive disorder, single episode, mild F32.0 Active 28966513 Problem Irritable bowel syndrome with diarrhea K58.0 Active 989660443 Problem Paresthesia of bilateral legs R20.2 Active 261632808 Problem Ulcerative pancolitis without complication K51.00 Active 473365907 Problem Abnormal mammogram R92.8 Active 220155591 Problem Polyneuropathy G62.9 Active 30725477 Problem PTSD (post-traumatic stress disorder) F43.10 Active 83298228 Problem Major depressive disorder, recurrent episode, severe F33.2 Active 310409769523 Problem HTN (hypertension) I10 Active 66932212 Problem Depression F32.9 Active 30080578 Problem Parkinsons G20 Active 44746697 Problem Anxiety F41.9 Active 41589804 Problem COPD (chronic obstructive pulmonary disease) J44.9 Active 31451487 Problem Annular psoriasis L40.8 Active 333070199 ALLERGIES No Information ENCOUNTERS Encounter Location Date Diagnosis [facility] [id number] [address] Nov, Irritable bowel syndrome with diarrhea K58.0 and Alopecia L65.9 [facility] [address] [address] Oct, Chronic diarrhea K52.9 and Acute colitis K52.9 [facility] [id number] [place] [address] 90144- 1674 Oct, Chronic diarrhea K52.9 [address] [address] [place] [address] 82829- 4469 Oct, Chronic diarrhea K52.9 and Edema of both legs R60.0 [place] [id number] [place] [address] 22453- 2311 Sep, Medicare annual wellness visit, initial Z00.00 ; Parkinsons G20 ; COPD (chronic obstructive pulmonary disease) J44.9 ; Major depressive disorder, single episode, mild F32.0 ; HTN (hypertension) I10 ; Hypokalemia E87.6 and Adverse effect of carbonic-anhydrase inhibitors, benzothiadiazides and other diuretics, initial encounter T50.2X5A [place] [id number] [place] [address] 38253- 3108 Sep, Localized edema R60.0 [place] [id number] [place] [address] 38669- 4714 Sep, [place] [id number] [place] [address] 90611- 8146 Sep, Major depressive disorder, single episode, mild F32.0 ; PTSD (post-traumatic stress disorder) F43.10 and Edema of both legs R60.0 [place] [address] [place] [address] 44298- 6582 August, Localized edema R60.0 [place] [id number] [place] [address] 17156- 1028 August, Localized edema R60.0 ; Weight gain R63.5 and Irritable bowel syndrome with diarrhea K58.0 [place] [id number] [place] [address] 79435- 6449 Jul, [place] [id number] [place] [address] 93323- 6273 Jul, Elevated liver enzymes R74.8 [address] [place] [id number] [place] [address] 25463- 2210 Jul, Polyneuropathy G62.9 [facility] [address] [address] Jul, [facility] [id number] [place] [address] 28166- 0461 Jul, Cervical disc disease M50.90 [facility] [id number] [place] [address] 31352- 0074 Jul, Elevated liver enzymes R74.8 [place] [id number] [place] [address] 19397- 8658 Jul, Polyneuropathy G62.9 ; Ulcerative pancolitis without complication K51.00 ; Depression F32.9 ; Leg weakness, bilateral R29.898 and Paresthesia of bilateral legs R20.2 [place] [address] [place] [address] 97595- 2052 Jul, Polyneuropathy G62.9 ; Ulcerative pancolitis without complication K51.00 ; Depression F32.9 ; Leg weakness, bilateral R29.898 and Paresthesia of bilateral legs R20.2 [place] [address] [place] [address] 54216- 1668 Jun, [place] [address] [place] [address] 32261- 0676 Jun, Fibrous breast lumps N63.0 [place] [address] [place] [address] 05330- 3850 Jun, Ulcerative pancolitis without complication K51.00 [place] [address] [place] [address] 98753- 6199 Jun, Abnormal mammogram R92.8 [place] [id number] [place] [address] 68066- 2025 Jun, Breast density R92.2 [place] [address] [place] [address] 22903- 0826 Jun, [place] [id number] [place] [address] 99972- 9658 Jun, PTSD (post-traumatic stress disorder) F43.10 [place] [id number] [place] [address] 66209- 5690 May, [place] [id number] [place] [address] 30437- 2100 May, Breast cancer screening Z12.31 and Fibrous breast lumps N63.0 [place] [id number] [place] [address] 34647- 6217 Apr, Ulcerative pancolitis without complication K51.00 [place] [id number] [place] [address] 92730- 3893 Apr, [place] [id number] [place] [address] 18112- 0294 Apr, Ulcerative pancolitis without complication K51.00 ; Low back pain M54.5 and Other chronic pain G89.29 [place] [id number] [place] [address] 20621- 3032 28 Dec, 2016 Cervical disc disease M50.90 and HTN (hypertension) I10 [place] [id number] [place] [address] 94566- 9658 05 Dec, 2016 Moderate episode of recurrent major depressive disorder F33.1 and PTSD (post-traumatic stress disorder) F43.10 [place] [address] [place] [address] 85413- 4509 Oct, [place] [id number] [place] [address] 78423- 6541 Oct, Irritable bowel syndrome with diarrhea K58.0 [place] [id number] [place] [address] 73163- 4588 07 Oct, 2016 Irritable bowel syndrome with diarrhea K58.0 [place] [id number] [place] [address] 98625- 2236 Sep, Diarrhea, unspecified type R19.7 ; Chronic pain G89.29 ; Hypertriglyceridemia E78.1 ; PTSD (post-traumatic stress disorder) F43.10 ; History of herniated intervertebral disc Z87.39 and Depression F32.9 [facility] [id number] [place] [address] 10733- 3015 August, Moderate episode of recurrent major depressive disorder F33.1 and PTSD (post-traumatic stress disorder) F43.10 [place] [id number] [place] [address] 09357- 7790 August, [place] [address] 68105- 5316 Jul, [place] [id number] [place] [address] 56705- 8634 Jul, PTSD (post-traumatic stress disorder) F43.10 ; IBS ( irritable bowel syndrome) K58.9 ; HTN (hypertension) I10 ; Hypertriglyceridemia E78.1 ; Chronic pain G89.29 ; Anxiety F41.9 ; Depression F32.9 ; COPD (chronic obstructive pulmonary disease) J44.9 ; Irritable bowel syndrome with diarrhea K58.0 and Second degree hemorrhoids K64.1 [place] [id number] [place] [address] 72947- 2222 Jul, PTSD (post-traumatic stress disorder) F43.10 [place] [id number] [place] [address] 52232- 1901 Jul, [place] [id number] [place] [address] 50232- 2310 Jun, [place] [id number] [place] [address] 18148- 5253 Jun, HTN (hypertension) I10 [place] [id number] [place] [address] 26399- 8207 May, Depression F32.9 ; Post traumatic stress disorder F43.10 and Screening mammogram, encounter for Z12.31 [place] [address] [place] [address] 84053- 0602 May, [address] 99943- 7904 May, PTSD (post-traumatic stress disorder) F43.10 and Major depressive disorder in partial remission F32.[address] 64092- 5358 May, PTSD (post-traumatic stress disorder) F43.10 ; IBS ( irritable bowel syndrome) K58.9 ; History of herniated intervertebral disc Z87.39 ; Anxiety F41.9 ; Depression F32.9 ; Hypertriglyceridemia E78.1 ; Eczema of both hands L30.9 ; HTN (hypertension) I10 and COPD (chronic obstructive pulmonary disease) J44.9 [id number] [place] [address] 06989- 3840 Apr, Major depressive disorder in partial remission F32.4 and PTSD (post-traumatic stress disorder) F43.10 [id number] [place] [address] 04496- 5129 Apr, PTSD (post-traumatic stress disorder) F43.10 [id number] [place] [address] 09153- 1758 Mar, IBS (irritable bowel syndrome) K58.9 ; PTSD (post-traumatic stress disorder) F43.10 ; COPD (chronic obstructive pulmonary disease) J44.9 ; History of herniated intervertebral disc Z87.39 ; HTN (hypertension) I10 ; Parkinsons G20 ; Annular psoriasis L40.8 and Hypertriglyceridemia E78.1 [id number] [place] [address] 73341- 0102 Feb, [address] [id number] [place] [address] 87044- 5330 Feb, Moderate episode of recurrent major depressive disorder F33.1 and PTSD (post-traumatic stress disorder) F43.[id number] [place] [address] 58581- 9099 Jan, Onychocryptosis L60.0 [facility] [address] 33930- 5586 30 Dec, 2015 [facility] [address] 50738- 9339 Dec, Dizziness R42 ; PTSD (post-traumatic stress disorder) F43.10 ; Posttraumatic stress disorder F43.10 ; IBS (irritable bowel syndrome) K58.9 ; History of herniated intervertebral disc Z87.39 ; HTN (hypertension) I10 ; Chronic pain G89.29 and Hypercholesterolemia E78.0 [address] [address] 27904- 5423 Dec, [address] [address] 98892- 9491 Dec, [facility] [address] 18729 -5173 Dec, Annular psoriasis L40.8 [address] [address] 97297- 5644 Nov, [place] [address] 49234- 3419 Nov, [address] [address] 96609- 0471 Nov, HTN (hypertension) I10 ; Chronic pain G89.29 ; Annular psoriasis L40.8 ; IBS (irritable bowel syndrome) K58.9 and Vision changes H53.9 [address] [address] 19122- 0974 Oct, [facility] [address] 61454- 9037 Oct, IBS (irritable bowel syndrome) K58.9 ; PTSD (post-traumatic stress disorder) F43.10 ; HTN (hypertension) I10 ; Depression F32.9 ; History of herniated intervertebral disc Z87.39 ; Anxiety F41.9 ; Chronic pain G89.29 and Hypercholesterolemia E78.0 [address] [address] 51914- 8263 Oct, Major depressive disorder in partial remission F32.4 and PTSD (post-traumatic stress disorder) F43.10 [address] [address] 08277- 0981 Oct, IBS (irritable bowel syndrome) K58.9 ; PTSD (post-traumatic stress disorder) F43.10 ; Major depressive disorder, recurrent episode, severe F33.2 ; Anxiety F41.9 and Impacted cerumen, unspecified laterality H61.20 [address] [id number] [place] [address] 33680- 6821 Oct, Major depressive disorder in partial remission F32.4 ; Posttraumatic stress disorder F43.10 and Anxiety F41.9 [address] [address] 69029- 9315 Sep, [address] [address] 01471- 9171 Sep, Anxiety F41.9 ; Major depressive disorder, recurrent episode , mild F33.0 and Posttraumatic stress disorder F43.10 [address] [id number] [place] [address] 43922- 4570 Sep, [address] [address] 08656- 9138 August, [place] [address] 74318- 6524 Jul, Contact dermatitis L25.9 [place] [id number] [place] [address] 37995- 1664 Jul, Major depressive disorder, recurrent episode, severe F33.2 ; Posttraumatic stress disorder F43.10 and Anxiety F41.9 [place] [address] [place] [address]- 5663 Jul, [address] [id number] [place] [address] 02825- 0891 Jun, IBS (irritable bowel syndrome) K58.9 ; COPD (chronic obstructive pulmonary disease) J44.9 ; HTN (hypertension) I10 ; Chronic pain G89.29 ; Anxiety F41.9 ; PTSD (post-traumatic stress disorder) F43.10 ; Parkinsons G20 and Hypercholesterolemia E78.0 [address] [id number] [place] [address] 10674- 4783 Jun, [address] [address] 47059- 7915 Jun, Onychocryptosis L60.0 and Onychomycosis B35.1 [address] [id number] [place] [address] 46381- 0280 May, [address] [id number] [place] [address] 98364- 2914 May, IBS (irritable bowel syndrome) K58.9 ; COPD (chronic obstructive pulmonary disease) J44.9 ; History of herniated intervertebral disc Z87.39 ; HTN (hypertension) I10 ; Anxiety F41.9 ; Depression F32.9 and Major depressive disorder in partial remission F32.4 [address] [id number] [place] [address] 63981- 5875 08 May, 2015 IBS (irritable bowel syndrome) K58.9 ; COPD (chronic obstructive pulmonary disease) J44.9 ; History of herniated intervertebral disc Z87.39 ; HTN (hypertension) I10 ; Anxiety F41.9 ; Depression F32.9 and Major depressive disorder in partial remission F32.4 [place] [id number] [place] [address] 46529- 5931 May, [address] [id number] [place] [address] 10236- 9322 May, Anxiety F41.9 ; IBS (irritable bowel syndrome) K58.9 and Major depressive disorder in partial remission F32.4 [place] [id number] [place] [address] 07729- 6698 18 Apr, 2015 Encounter for screening mammogram for breast cancer Z12.31 [place] [id number] [place] [address] 59930- 2779 15 Apr, 2015 [place] [address] 40513- 8996 11 Apr, 2015 [address] [id number] [place] [address] 93733- 1769 Apr, COPD (chronic obstructive pulmonary disease) J44.9 ; HTN ( hypertension) I10 ; Chronic pain G89.29 ; Anxiety F41.9 ; PTSD (post-traumatic stress disorder) F43.10 and IBS (irritable bowel syndrome) K58.[address] 48202- 3736 Apr, PTSD (post-traumatic stress disorder) F43.10 [place] [id number] [place] [address] 05830- 2620 08 Apr, 2015 Onychocryptosis L60.0 and Onychomycosis B35.1 [address] [id number] [place] [address] 77966- 5018 04 Apr, 2015 IBS (irritable bowel syndrome) K58.9 ; COPD (chronic obstructive pulmonary disease) J44.9 ; History of herniated intervertebral disc Z87.39 ; HTN (hypertension) I10 ; Chronic pain G89.29 ; Anxiety F41.9 ; Depression F32.9 ; Parkinsons G20 ; Hypercholesteremia E78.0 and Hemorrhoid K64.9 [place] [id number] [place] [address] 70399- 4891 Mar, [address] [place] [id number] [place] [address] 35345- 1268 Mar, Major depressive disorder, recurrent episode, severe F33.2 and Posttraumatic stress disorder F43.10 [facility] [address] [address] 2546 Mar, [facility] [address] [place] [address] 98711 2546 Mar, [facility] [address] [address] 2546 Mar, PTSD (post-traumatic stress disorder) F43.10 [facility] [address] [address] 2546 Mar, Onychomycosis B35.1 and Hypertension, benign I10 [facility] [id number] [place] [address] 92776 2546 Mar, Onychomycosis B35.1 and Hypertension, benign I10 [facility] [id number] [place] [address] 89030- 3516 Feb, PTSD (post-traumatic stress disorder) F43.10 [facility] [address] [address] 2546 Feb, [facility] [address] [place] [address] 40400 2546 Feb, Major depressive disorder, recurrent episode, severe F33.2 and Posttraumatic stress disorder F43.10 [facility] [address] [address] 2546 Jan, PTSD (post-traumatic stress disorder) F43.10 [facility] [address] [address] 2546 Jan, Rash R21 [facility] [address] [place] [address] 71163 2546 Jan, PTSD (post-traumatic stress disorder) F43.10 [facility] [address] [address] 2546 Jan, [facility] [id number] [place] [address]- 5157 30 Dec, 2014 Neuropathy 355.9 [facility] [id number] [place] [address] 26682- 3908 30 Dec, 2014 PTSD (post-traumatic stress disorder) F43.10 [facility] [id number] [place] [address] 65294- 1951 29 Dec, 2014 MDD (major depressive disorder), recurrent episode, severe 296.33 and PTSD (post-traumatic stress disorder) 309.81 [facility] [id number] [place] [address] 99469- 2361 Dec, [facility] [id number] [place] [address] 80647- 4246 Dec, Ingrown toenail 703.0 [facility] [id number] [place] [address] 72521- 6041 Dec, Posttraumatic stress disorder 309.81 [facility] [id number] [place] [address] 26883- 8147 Nov, Depressive disorder, not elsewhere classified 311 and Anxiety state, unspecified 300.00 [facility] [id number] [place] [address] 43547- 2760 Oct, Depressive disorder, not elsewhere classified 311 and Anxiety state, unspecified 300.00 [facility] [address] [place] [address] 97437- 5134 Oct, Depressive disorder, not elsewhere classified 311 ; Anxiety state, unspecified 300.00 and No condition on Zimmerman II V71.09 [facility] [address] [address] Oct, Dental examination V72.2 [facility] [address] [place] [address] 25745- 8548 Oct, [facility] [address] [place] [address] 60465- 7457 August, [facility] [address] [address]- 0616 August, Seizure 780.39 and IBS (irritable bowel syndrome) 564.1 [facility] [address] [id number] [place] [address]- 9856 14 Jul, 2014 [facility] [address] [place] [address]- 8274 Jul, [facility] [address] [facility] [id number] [address]- 6671 Jun, [facility] [address] [facility] [id number] [place] [address]- 3454 Jun, [facility] [address] [facility] [id number] [place] [address]- 0478 Jun, [facility] [address] [place] [address]- 2047 Jun, [facility] [address] [facility] [id number] [address]- 5236 Jun, [facility] [id number] [place] [address]- 0081 Jun, [facility] [id number] [address]- 3984 Jun, [facility] [address] [address]- 7489 Jun, [facility] [address] [facility] [id number] [place] [address]- 7509 Jun, [facility] [address] [facility] [id number] [place] [address]- 3072 Jun, [facility] [address] [facility] [id number] [place] [address]- 6508 Jun, [facility] [id number] [address]- 6196 Jun, [facility] [address] [facility] [id number] [place] [address]- 5682 13 May, 2014 [facility] [address] [id number] [place] [address]- 4936 May, [facility] [address] [id number] [place] [address]- 1746 Apr, [facility] [address] [id number] [place] [address]- 0176 Apr, [facility] [address] [id number] [place] [address]- 1059 Mar, [facility] [address] [id number] [place] [address]- 9558 Mar, [facility] [address] [id number] [place] [address]- 0552 Mar, [facility] [address] [id number] [place] [address]- 5079 Mar, [facility] [address] [id number] [place] [address]- 0558 Mar, [facility] [address] [id number] [place] [address]- 5631 Mar, [facility] [address] [id number] [place] [address]- 8638 Mar, [facility] [address] [id number] [place] [address]- 2543 Mar, [facility] [address] [id number] [place] [address]- 2542 Mar, [facility] [place] [facility] [address] [id number] [place] [address]- 5316 Mar, [facility] [place] [facility] [address] [id number] [place] [address]- 2546 Mar, [facility] [place] [facility] [address] [id number] [place] [address]- 3300 Mar, [facility] [place] [facility] [address] [id number] [place] [address] Mar, [facility] [place] [facility] [address] [id number] [place] [address] Mar, [facility] [place] [facility] [address] [id number] [place] [address] Mar, [facility] [place] [facility] [address] [id number] [place] [address] Mar, [facility] [place] [facility] [address] [id number] [place] [address] Mar, [facility] [place] [facility] [address] [id number] [place] [address] Mar, [facility] [place] [facility] [address] [id number] [place] [address] Mar, [facility] [place] [facility] [address] [id number] [place] [address] Feb, [facility] [place] [facility] [address] [id number] [place] [address] Feb, [facility] [place] [facility] [address] [id number] [place] [address] Feb, [facility] [place] [facility] [address] [id number] [place] [address] 18 Feb, 2014 [facility] [place] [facility] [address] [id number] [address] 17 Feb, 2014 [facility] [place] [facility] [address] [id number] [place] [address] 17 Feb, 2014 [facility] [place] [facility] [address] [id number] [place] [address] 14 Feb, 2014 [facility] [place] [facility] [address] [id number] [place] [address] 14 Feb, 2014 [facility] [place] [facility] [address] [id number] [address] Jan, [facility] [place] [facility] [address] [id number] [place] [address] Jan, [facility] [place] [facility] [address] [id number] [place] Nov, [facility] [place] [facility] [address] [id number] [place] [address] Nov, [facility] [place] [facility] [address] [id number] [place] [address] Oct, [facility] [place] [facility] [address] [id number] [place] [address] Oct, [facility] [place] [facility] [address] [id number] [place] [address] Oct, [facility] [place] [facility] [address] [id number] [place] [address] Oct, [facility] [place] [facility] [address] [id number] [place] [address] Oct, [facility] [place] [facility] [address] [id number] [place] [address] Sep, [facility] [place] [facility] [address] [id number] [place] [address] Sep, [facility] [place] [facility] [address] [id number] [place] [address] August, [facility] [place] [facility] [address] [id number] [place] [address] August, [facility] [place] [facility] [address] [id number] [place] [address] Jun, [facility] [place] [facility] [address] [id number] [place] [address] Jun, [facility] [place] [facility] [address] [id number] [place] [address] Jun, [facility] [place] [facility] [address] [id number] [place] [address] 11 Jun, 2013 [facility] [place] [facility] [address] [id number] [place] [address] 10 Jun, 2013 [facility] [place] [facility] [address] [id number] [place] [address]66 10 Jun, 2013 [facility] [place] [facility] [address] [id number] [place] [address]- 8681 07 Jun, 2013 [facility] [place] [facility] [address] [id number] [place] [address] 07 Jun, 2013 [facility] [place] [facility] [address] [id number] [place] [address] Jun, [facility] [place] [facility] [address] [id number] [place] [address] 4065 Jun, [facility] [place] [facility] [address] [id number] [place] [address] Jun, [facility] [place] [facility] [address] [id number] [place] [address] 04 Jun, 2013 [facility] [place] [facility] [address] [id number] [place] [address]- [address] Jun, [facility] [place] [facility] [address] [id number] [place] [address] 8089 Jun, [facility] [place] [facility] [address] [id number] [place] [address] May, [facility] [place] [facility] [address] [id number] [place] [address]138 May, [facility] [place] [facility] [address] [id number] [place] [address] 4[address] Apr, [facility] [place] [facility] [address] [id number] [place] [address] 1576 Apr, [facility] [place] [facility] [address] [id number] [place] [address] Mar, [facility] [place] [facility] [address] [id number] [place] [address] 36[address] Mar, [facility] [place] [facility] [address] [id number] [place] [address] Feb, [facility] [place] [facility] [address] [facility] [id number] [place] [address]- [address] Feb, [facility] [place] [facility] [address] [id number] [place] [address] 110[address] Feb, [facility] [place] [facility] [address] [id number] [place] [address] 2764 Feb, [facility] [place] [facility] [address] [id number] [place] [address] Feb, [facility] [place] [facility] [address] [id number] [place] [address]- 6[address] Feb, [facility] [place] [facility] [address] [id number] [address] Feb, [facility] [place] [facility] [address] [id number] [place] [address] 0395 Jan, [facility] [place] [facility] [address] [id number] [address] Jan, [facility] [place] [facility] [address] [id number] [place] [address] Dec, [facility] [place] [facility] [address] [id number] [address] Dec, [facility] [place] [facility] [address] [id number] [place] [address] Nov, [facility] [place] [facility] [address] [id number] [place] [address] Nov, [facility] [place] [facility] [address] [facility] [id number] [place] [address] Oct, [facility] [place] [facility] [address] [id number] [place] [address]195 Sep, [facility] [address] [id number] [place] [address] 68[address] Sep, [facility] [place] [facility] [address] [id number] [place] [address] 9408 August, [facility] [address] [id number] [place] [address] August, [facility] [place] [facility] [address] [id number] [place] [address]329 August, [facility] [address] [id number] [place] [address] Jul, [facility] [place] [facility] [address] [id number] [place] [address] 9296 May, [facility] [address] [id number] [place] [address]- 7449 May, [facility] [address] [id number] [place] [address]- 4072 Apr, [facility] [address] [id number] [place] [address]- 4577 Apr, [facility] [address] [id number] [place] [address]- 0177 Feb, [facility] [place] [facility] [address] [id number] [place] [address]- 8649 Feb, [facility] [place] [facility] [address] [id number] [place] [address]- 2724 Jan, [facility] [place] [facility] [address] [id number] [place] [address]- 1633 Jan, [facility] [place] [facility] [address] [id number] [place] [address]- 2546 Jan, [facility] [place] [facility] [address] [id number] [place] [address]- 5374 Nov, [facility] [place] [facility] [address] [id number] [place] [address]- 1791 Nov, [facility] [place] [facility] [address] [id number] [place] [address]- 2238 Nov, [facility] [place] [facility] [address] [id number] [place] [address]- 5538 Nov, [facility] [place] [facility] [address] [id number] [place] [address]- 1537 Nov, [facility] [place] [facility] [address] [id number] [place] [address] 7334 Oct, [facility] [place] [facility] [address] [id number] [place] [address]- 1019 Oct, [facility] [place] [facility] [address] [id number] [place] [address]- 8292 Oct, [facility] [place] [facility] [address] [id number] [place] [address]- 7071 Oct, [facility] [place] [facility] [address] [id number] [place] [address]- 1140 Oct, [facility] [place] [facility] [address] [id number] [place] [address]- 6052 Oct, [facility] [place] [facility] [address] [id number] [place] [address]- 5305 Oct, [facility] [place] [facility] [address] [id number] [place] [address]- 7461 Sep, [facility] [place] [facility] [address] [id number] [place] [address]- 2307 Sep, [facility] [place] [facility] [address] [id number] [place] [address]- 4887 Sep, [facility] [place] [facility] [address] [id number] [place] [address]- 5169 August, [facility] [place] [facility] [address] [id number] [place] [address]- 4208 30 Jul, 2011 [facility] [address] [id number] [place] [address]- 0267 28 Jul, 2011 [facility] [place] [facility] [address] [id number] [place] [address]- 3548 27 Jul, 2011 [facility] [place] [facility] [address] [id number] [place] [address]- 4575 16 Jul, 2011 [facility] [place] [facility] [address] [id number] [place] [address]- 5882 13 Jul, 2011 [facility] [place] [facility] [address] [id number] [place] [address]- 3852 Jun, [facility] [place] [facility] [address] [id number] [place] [address]- 9258 May, [facility] [address] [id number] [place] [address]- 4414 Apr, [facility] [place] [facility] [address] [id number] [place] [address]- 5729 Apr, [facility] [place] [facility] [address] [id number] [place] [address]- 7672 Apr, [facility] [place] [facility] [address] [id number] [place] [address]- 6856 Apr, [facility] [place] [facility] [address] [id number] [place] [address]- 8764 Apr, [facility] [place] [facility] [address] [id number] [place] [address]- 3617 Apr, [facility] [place] [facility] [address] [id number] [place] [address]- 4664 Mar, [facility] [place] [facility] [address] [id number] [place] [address]- 1842 Mar, [facility] [place] [facility] [address] [facility] [id number] [place] [address]- 8563 Feb, [facility] [place] [facility] [address] [id number] [place] [address]- 0333 10 Nov, 2010 [facility] [place] [facility] [address] [id number] [place] [address]- 6606 Jun, [facility] [place] [facility] [address] [id number] [place] [address]- 9205 Apr, [facility] [place] [facility] [address] [id number] [place] [address]- 1663 Feb, [facility] [place] [facility] [address] [id number] [place] [address]- 4258 Jan, [facility] [place] [facility] [address] [id number] [place] [address]- 1279 Jan, [facility] [place] [facility] [address] [id number] [place] [address]- 0054 Jan, [facility] [place] [facility] [address] [id number] [place] [address]- 3904 Jan, [facility] [place] [facility] [address] [id number] [place] [address]- 7432 16 Nov, 2009 [facility] [place] [facility] [address] [id number] [place] [address]- 3748 Nov, [facility] [place] [facility] [address] [facility] [id number] [place] [address]- 2225 Mar, [facility] [place] [facility] [address] [id number] [place] [address]- 0145 Mar, [facility] [place] [facility] [address] [id number] [place] [address]- 9181 Feb, [facility] [place] [facility] [address] [id number] [place] [address]- 5589 Feb, [facility] [place] [facility] [address] [id number] [place] [address]- 0475 23 Jan, 2009 [facility] [place] [facility] [address] [id number] [place] [address]- 7091 10 May, 2008 IMMUNIZATIONS No Known Immunizations SOCIAL HISTORY Never Assessed REASON FOR VISIT Lab (walk-in) PLAN OF CARE VITAL SIGNS MEDICATIONS No Known Medications RESULTS No Results PROCEDURES Procedure Date Ordered Result Body Site TEST FOR BLOOD, FECES November 02, 2017 LAB NOT BILLED BY [facility] November 02, 2017 INSTRUCTIONS MEDICATIONS ADMINISTERED No Known Medications [...]
--- OUTSIDE RECORDS SUMMARY | 2018-03-25 15:02 | XMS REPORT ---
Author Author NAYA JACKSON Organization [facility] Address [address] [place] [address] Care Team Providers Care Prn Occupational Therapist Name Role Phone NAYA JACKSON Unavailable PROBLEMS Type Condition ICD9-CM Code [id number] Code Onset Dates Condition Status SNOMED Code Problem Hypertriglyceridemia E78.1 Active 565139317 Problem Other chronic pain G89.29 Active 37842581 Problem Cervical disc disease M50.90 Active 465591649 Problem Major depressive disorder, single episode, mild F32.0 Active 18417323 Problem Irritable bowel syndrome with diarrhea K58.0 Active 766124723 Problem Paresthesia of bilateral legs R20.2 Active 693335581 Problem Ulcerative pancolitis without complication K51.00 Active 499596539 Problem Abnormal mammogram R92.8 Active 808606768 Problem Polyneuropathy G62.9 Active 44090409 Problem PTSD (post-traumatic stress disorder) F43.10 Active 75562343 Problem Major depressive disorder, recurrent episode, severe F33.2 Active 310278957525 Problem HTN (hypertension) I10 Active 36792253 Problem Depression F32.9 Active 28529405 Problem Parkinsons G20 Active 91451706 Problem Anxiety F41.9 Active 84875059 Problem COPD (chronic obstructive pulmonary disease) J44.9 Active 22947617 Problem Annular psoriasis L40.8 Active 902048215 ALLERGIES Substance Reaction Event Type Date Status Latex Unknown Drug Allergy Oct, Active Budesonide rash/swelling Drug Allergy Oct, Active ENCOUNTERS Encounter Location Date Diagnosis [facility] [id number] [address] Nov, Irritable bowel syndrome with diarrhea K58.[address] [facility] [id number], [place] [address] Oct, Chronic diarrhea K52.9 and Acute colitis K52.9 [facility] [address] [address] Oct, Chronic diarrhea K52.9 [facility] [id number] [place] [address] 82880- 6793 Oct, Chronic diarrhea K52.9 and Edema of both legs R60.0 [facility] [facility] [id number] [place] [address] 26426- 3211 Sep, Medicare annual wellness visit, initial Z00.00 ; Parkinsons G20 ; COPD (chronic obstructive pulmonary disease) J44.9 ; Major depressive disorder, single episode, mild F32.0 ; HTN (hypertension) I10 ; Hypokalemia E87.6 and Adverse effect of carbonic-anhydrase inhibitors, benzothiadiazides and other diuretics, initial encounter T50.2X5A [facility] [facility] [id number] [place] [address] 50195- 5845 Sep, Localized edema R60.0 [facility] [facility] [id number] [place] [address] 93634- 3046 Sep, [facility] [facility] [id number] [place] [address] 78096- 4155 Sep, Major depressive disorder, single episode, mild F32.0 ; PTSD (post-traumatic stress disorder) F43.10 and Edema of both legs R60.0 [place] [address], [place] [address] August, Localized edema R60.0 [facility] [facility] [id number] [place] [address] 98082- 9896 August, Localized edema R60.0 ; Weight gain R63.5 and Irritable bowel syndrome with diarrhea K58.0 [facility] [facility] [id number] [place] [address] 32922- 8248 Jul, [facility] [facility] [id number] [place] [address] 62869- 1452 Jul, Elevated liver enzymes R74.8 [facility] [facility] [id number] [place] [address] 59560- 5026 Jul, Polyneuropathy G62.9 [facility] [facility] [id number] [place] [address] 41720- 5629 Jul, [facility] [facility] [id number] [place] [address] 01493- 0811 Jul, Cervical disc disease M50.90 [facility] [id number] [place] [address] 54365- 9034 Jul, Elevated liver enzymes R74.8 [facility] [id number] [place] [address] 41725- 1000 Jul, Polyneuropathy G62.9 ; Ulcerative pancolitis without complication K51.00 ; Depression F32.9 ; Leg weakness, bilateral R29.898 and Paresthesia of bilateral legs R20.2 [facility] [facility] [id number] [place] [address] 78807- 1667 Jul, Polyneuropathy G62.9 ; Ulcerative pancolitis without complication K51.00 ; Depression F32.9 ; Leg weakness, bilateral R29.898 and Paresthesia of bilateral legs R20.2 [place] [id number] [place] [address] 30378- 2040 Jun, [place] [id number] [place] [address] 01839- 0448 Jun, Fibrous breast lumps N63.0 [facility] [facility] [id number] [place] [address] 78287- 7509 Jun, Ulcerative pancolitis without complication K51.00 [facility] [facility] [id number] [place] [address] 70819- 7978 Jun, Abnormal mammogram R92.8 [facility] [facility] [id number] [place] [address] 80289- 4463 Jun, Breast density R92.2 [facility] [facility] [id number] [address]- 7781 Jun, [place] [facility] [id number] [place] [address] 07452- 7090 Jun, PTSD (post-traumatic stress disorder) F43.10 [facility] [facility] [id number] [place] [address] 70004- 9645 May, [place] [address] [address]- 8599 May, Breast cancer screening Z12.31 and Fibrous breast lumps N63.0 [place] [facility] [id number] [place] [address] 27423- 1381 Apr, Ulcerative pancolitis without complication K51.00 [place] [id number] [place] [address] 34781- 8479 Apr, [place] [id number] [place] [address] 29887- 9236 Apr, Ulcerative pancolitis without complication K51.00 ; Low back pain M54.5 and Other chronic pain G89.29 [place] [id number] [place] [address] 12864- 7218 Dec, Cervical disc disease M50.90 and HTN (hypertension) I10 [facility] [id number] [place] [address] 01344- 0034 05 Dec, 2016 Moderate episode of recurrent major depressive disorder F33.1 and PTSD (post-traumatic stress disorder) F43.10 [place] [address] [place] [address] 57198- 4775 Oct, [place] [id number] [place] [address] 36983- 7567 Oct, Irritable bowel syndrome with diarrhea K58.0 [place] [facility] [address] [place] [address] 85674- 1273 Oct, Irritable bowel syndrome with diarrhea K58.0 [facility] [facility] [id number] [address] 39[address] Sep, Diarrhea, unspecified type R19.7 ; Chronic pain G89.29 ; Hypertriglyceridemia E78.1 ; PTSD (post-traumatic stress disorder) F43.10 ; History of herniated intervertebral disc Z87.39 and Depression F32.9 [place] [id number] [place] [address] 01333- 6492 August, Moderate episode of recurrent major depressive disorder F33.1 and PTSD (post-traumatic stress disorder) F43.10 [place] [id number] [place] [address] 04989- 3454 August, [place] [facility] [id number] [place] [address] 27220- 9434 Jul, [place] [id number] [place] [address] 11874- 9655 Jul, PTSD (post-traumatic stress disorder) F43.10 ; IBS ( irritable bowel syndrome) K58.9 ; HTN (hypertension) I10 ; Hypertriglyceridemia E78.1 ; Chronic pain G89.29 ; Anxiety F41.9 ; Depression F32.9 ; COPD (chronic obstructive pulmonary disease) J44.9 ; Irritable bowel syndrome with diarrhea K58.0 and Second degree hemorrhoids K64.1 [place] [facility] [id number] [place] [address] 87199- 6759 Jul, PTSD (post-traumatic stress disorder) F43.10 [place] [id number] [place] [address] 73420- 0271 Jul, [place] [id number] [place] [address] 43199- 5457 Jun, [place] [id number] [place] [address] 72482- 2256 Jun, HTN (hypertension) I10 [facility] [facility] [id number] [place] [address] 81071- 4789 May, Depression F32.9 ; Post traumatic stress disorder F43.10 and Screening mammogram, encounter for Z12.31 [place] [facility] [id number] [place] [address] 94853- 3432 May, [place] [address] 68709- 2402 09 May, 2016 PTSD (post-traumatic stress disorder) F43.10 and Major depressive disorder in partial remission F32.4 [place] [address] 82096- 4373 02 May, 2016 PTSD (post-traumatic stress disorder) F43.10 ; IBS ( irritable bowel syndrome) K58.9 ; History of herniated intervertebral disc Z87.39 ; Anxiety F41.9 ; Depression F32.9 ; Hypertriglyceridemia E78.1 ; Eczema of both hands L30.9 ; HTN (hypertension) I10 and COPD (chronic obstructive pulmonary disease) J44.9 [place] [address] 79175- 5961 Apr, Major depressive disorder in partial remission F32.4 and PTSD (post-traumatic stress disorder) F43.10 [address] [id number] [place] [address] 88239- 1258 Apr, PTSD (post-traumatic stress disorder) F43.10 [place] [id number] [place] [address] 42787- 7520 Mar, IBS (irritable bowel syndrome) K58.9 ; PTSD (post-traumatic stress disorder) F43.10 ; COPD (chronic obstructive pulmonary disease) J44.9 ; History of herniated intervertebral disc Z87.39 ; HTN (hypertension) I10 ; Parkinsons G20 ; Annular psoriasis L40.8 and Hypertriglyceridemia E78.1 [place] [id number] [place] [address] 62182- 2946 Feb, [address] [id number] [place] [address] 76417- 2908 15 Nov, 2016 Moderate episode of recurrent major depressive disorder F33.1 and PTSD (post-traumatic stress disorder) F43.10 [place] [id number] [place] [address] 96599- 1809 07 Jan, [address] [facility] [id number] [place] [address] 40957- 0346 30 Dec, 2015 [place] [address] 14096- 2831 Dec, Dizziness R42 ; PTSD (post-traumatic stress disorder) F43.10 ; Posttraumatic stress disorder F43.10 ; IBS (irritable bowel syndrome) K58.9 ; History of herniated intervertebral disc Z87.39 ; HTN (hypertension) I10 ; Chronic pain G89.29 and Hypercholesterolemia E78.0 [place] [address] 15230- 6515 Dec, [place] [address] 53381- 9358 Dec, [facility] [address] 40020 -9967 Dec, Annular psoriasis L40.8 [place] [address] 66617- 5826 Nov, [place] [address] 73900- 1032 Nov, [place] [address] 02269- 7878 Nov, HTN (hypertension) I10 ; Chronic pain G89.29 ; Annular psoriasis L40.8 ; IBS (irritable bowel syndrome) K58.9 [address] H53.9 [facility] [address] 56266- 8357 Oct, [facility] [address] 90836- 2301 Oct, IBS (irritable bowel syndrome) K58.9 ; PTSD (post-traumatic stress disorder) F43.10 ; HTN (hypertension) I10 ; Depression F32.9 ; History of herniated intervertebral disc Z87.39 ; Anxiety F41.9 ; Chronic pain G89.29 and Hypercholesterolemia E78.0 [place] [address] [place] [address] 44722- 2982 Oct, Major depressive disorder in partial remission F32.4 and PTSD (post-traumatic stress disorder) F43.10 [place] [id number] [place] [address] 70576- 4113 Oct, IBS (irritable bowel syndrome) K58.9 ; PTSD (post-traumatic stress disorder) F43.10 ; Major depressive disorder, recurrent episode, severe F33.2 ; Anxiety F41.9 and Impacted cerumen, unspecified laterality H61.20 [place] [id number] [place] [address] 34729- 0252 Oct, Major depressive disorder in partial remission F32.4 ; Posttraumatic stress disorder F43.10 and Anxiety F41.9 [place] [id number] [place] [address] 63553- 6840 Sep, [place] [id number] [place] [address] 50459- 4471 Sep, Anxiety F41.9 ; Major depressive disorder, recurrent episode , mild F33.0 and Posttraumatic stress disorder F43.10 [place] [id number] [place] [address] 49546- 5117 Sep, [place] [id number] [place] [address] 92375- 7192 August, [place] [address] 11325- 8193 Jul, Contact dermatitis L25.9 [facility] [id number] [place] [address] 70946- 9366 Jul, Major depressive disorder, recurrent episode, severe F33.2 ; Posttraumatic stress disorder F43.10 and Anxiety F41.9 [facility] [facility] [id number] [address]- 8871 Jul, [place] [id number] [place] [address] 49992- 3580 Jun, IBS (irritable bowel syndrome) K58.9 ; COPD (chronic obstructive pulmonary disease) J44.9 ; HTN (hypertension) I10 ; Chronic pain G89.29 ; Anxiety F41.9 ; PTSD (post-traumatic stress disorder) F43.10 ; Parkinsons G20 and Hypercholesterolemia E78.0 [place] [id number] [place] [address] 04121- 2000 Jun, [place] [id number] [place] [address] 50126- 1553 Jun, Onychocryptosis L60.0 and Onychomycosis B35.1 [place] [id number] [place] [address] 04998- 5605 May, [place] [id number] [place] [address] 13574- 8364 May, IBS (irritable bowel syndrome) K58.9 ; COPD (chronic obstructive pulmonary disease) J44.9 ; History of herniated intervertebral disc Z87.39 ; HTN (hypertension) I10 ; Anxiety F41.9 ; Depression F32.9 and Major depressive disorder in partial remission F32.4 [place] [id number] [place] [address] 36332- 0255 08 May, 2015 IBS (irritable bowel syndrome) K58.9 ; COPD (chronic obstructive pulmonary disease) J44.9 ; History of herniated intervertebral disc Z87.39 ; HTN (hypertension) I10 ; Anxiety F41.9 ; Depression F32.9 and Major depressive disorder in partial remission F32.4 [place] [address] [place] [address] 21516- 7931 May, [place] [id number] [place] [address] 82679- 2875 04 May, 2015 Anxiety F41.9 ; IBS (irritable bowel syndrome) K58.9 and Major depressive disorder in partial remission F32.4 [id number] [place] [address] 27470- 2739 18 Apr, 2015 Encounter for screening mammogram for breast cancer Z12.[address] 27563- 2828 15 Apr, [address] 45912- 3228 Apr, [address] 97128- 6785 Apr, COPD (chronic obstructive pulmonary disease) J44.9 ; HTN ( hypertension) I10 ; Chronic pain G89.29 ; Anxiety F41.9 ; PTSD (post-traumatic stress disorder) F43.10 and IBS (irritable bowel syndrome) K58.9 [address] [id number] [place] [address] 95618- 2038 Apr, PTSD (post-traumatic stress disorder) F43.[address] 05421- 8655 Apr, Onychocryptosis L60.0 and Onychomycosis B35.[address] 60137- 0653 Apr, IBS (irritable bowel syndrome) K58.9 ; COPD (chronic obstructive pulmonary disease) J44.9 ; History of herniated intervertebral disc Z87.39 ; HTN (hypertension) I10 ; Chronic pain G89.29 ; Anxiety F41.9 ; Depression F32.9 ; Parkinsons G20 ; Hypercholesteremia E78.0 and Hemorrhoid K64.9 [address] [id number] [place] [address] 65034- 7061 Mar, [address] 92804- 8149 Mar, Major depressive disorder, recurrent episode, severe F33.2 and Posttraumatic stress disorder F43.10 [facility] [address] [place] [address] Mar, [facility] [id number] [place] [address] 43212- 7860 Mar, [facility] [id number] [place] 0840 Mar, PTSD (post-traumatic stress disorder) F43.10 [facility] [id number] [place] 7254 Mar, Onychomycosis B35.1 and Hypertension, benign I10 [facility] [id number] [place] [address] 55102- 3785 Mar, Onychomycosis B35.1 and Hypertension, benign I10 [facility] [id number] [place] [address] 71785- 0588 Feb, PTSD (post-traumatic stress disorder) F43.10 [place] [id number] [place] [address] 37601- 8687 Feb, [facility] [address] [place] [address] 93860- 8299 Feb, Major depressive disorder, recurrent episode, severe F33.2 and Posttraumatic stress disorder F43.10 [facility] [address] [place] [address] 88033- 0325 Jan, PTSD (post-traumatic stress disorder) F43.10 [facility] [address] [place] [address] 62229- 7588 Jan, Rash R21 [facility] [id number] [place] [address] 88469- 3321 14 Jan, 2015 PTSD (post-traumatic stress disorder) F43.10 [facility] [address] [place] [address]46 Jan, [facility] [address] [place] [address] 82287- 5889 Dec, Neuropathy 355.9 [facility] [id number] [place] [address] 26208- 2205 Dec, PTSD (post-traumatic stress disorder) F43.10 [facility] [id number] [place] [address] 944176- 9468 29 Dec, 2014 MDD (major depressive disorder), recurrent episode, severe 296.33 and PTSD (post-traumatic stress disorder) 309.81 [facility] [id number] [place] [address] 645549- 7478 Dec, [facility] [id number] [place] [address] 25657- 2014 Dec, Ingrown toenail 703.0 [facility] [id number] [place] [address] 01836- 7945 Dec, Posttraumatic stress disorder 309.81 [facility] [id number] [place] [address] 49699- 2904 Nov, Depressive disorder, not elsewhere classified 311 and Anxiety state, unspecified 300.00 [facility] [id number] [place] [address] 98582- 8846 Oct, Depressive disorder, not elsewhere classified 311 and Anxiety state, unspecified 300.00 [facility] [address] [place] [address] 01732- 1225 Oct, Depressive disorder, not elsewhere classified 311 ; Anxiety state, unspecified 300.00 and No condition on [place] II V71.09 [facility] [id number] [place] [address] [id number] Oct, Dental examination V72.2 [facility] [id number] [place] [address] 20794- 2859 Oct, [facility] [address] [place] [address]- 9077 August, [facility] [address] [facility] [id number] [address]- 3388 August, Seizure 780.39 and IBS (irritable bowel syndrome) 564.1 [facility] [address] [id number] [place] [address]- 6136 Jul, [facility] [address] [facility] [id number] [place] [address], [place] [address]- 5216 Jul, [facility] [address] [id number] [place] [address]- 0896 Jun, [facility] [address] [id number] [place] [address]- 8642 Jun, [facility] [id number] [place] [address]- 3500 Jun, [facility] [id number] [address]- 1125 Jun, [facility] [id number] [place] [address]- 5743 Jun, [facility] [id number] [address]- 2308 Jun, [facility] [id number] [place] [address]- 9623 Jun, [facility] [address] [facility] [id number], [place] [address]- 5717 Jun, [facility] [address] [facility] [id number] [place] [address]- 3835 Jun, [facility] [address] [facility] [id number] [place] [address]- 6377 Jun, [facility] [address] [facility] [id number], [place] [address]- 4816 2014 [facility] [id number] [address]- 7031 Jun, [facility] [address] [id number] [place] [address]- 3672 May, [facility] [place] [facility] [address] [id number] [place] [address]- 0326 May, [facility] [place] [facility] [address] [facility] [id number] [place] [address]- 9046 Apr, [facility] [place] [facility] [address] [id number] [place] [address]- 2039 Apr, [facility] [place] [facility] [address] [id number] [place] [address]- 0461 Mar, [facility] [place] [facility] [address] [id number] [place] [address]- 7975 Mar, [facility] [address] [id number] [place] [address]- 1804 Mar, [facility] [place] [facility] [address] [id number] [place] [address]- 3508 Mar, [facility] [place] [facility] [address] [id number] [place] [address]- 6668 Mar, [facility] [place] [facility] [address] [facility] [id number] [place] [address] Mar, [facility] [place] [facility] [address] [id number] [place] [address] Mar, [facility] [place] [facility] [address] [id number] [place] [address] Mar, [facility] [place] [facility] [address] [id number] [place] [address] Mar, [facility] [place] [facility] [address] [id number] [place] [address] Mar, [facility] [place] [facility] [address] [facility] [id number] [place] [address] Mar, [facility] [place] [facility] [address] [id number] [place] [address]- [address] Mar, [facility] [place] [facility] [address] [id number] [place] [address] Mar, [facility] [place] [facility] [address] [id number] [place] [address]- [address] Mar, [facility] [place] [facility] [address] [id number] [place] [address]- [address] Mar, [facility] [place] [facility] [address] [id number] [place] [address]- [address] Mar, [facility] [place] [facility] [address] [id number] [place] [address] Mar, [facility] [place] [facility] [address] [id number] [place] [address] Mar, [facility] [place] [facility] [address] [id number] [place] [address] Mar, [facility] [place] [facility] [address] [id number] [place] [address]- [address] Feb, [facility] [place] [facility] [address] [id number] [place] [address] 25 Feb, 2014 [facility] [place] [facility] [address] [id number] [place] [address]- [address] 18 Feb, 2014 [facility] [place] [facility] [address] [id number] [place] [address]- [address] 18 Feb, 2014 [facility] [place] [facility] [address] [id number] [place] [address]- [address] 17 Feb, 2014 [facility] [place] [facility] [address] [id number] [place] [address]- [address] 17 Feb, 2014 [facility] [place] [facility] [address] [id number] [place] [address] 14 Feb, 2014 [facility] [place] [facility] [address] [id number] [place] [address] Feb, [facility] [place] [facility] [address] [id number] [place] [address] Jan, [facility] [place] [facility] [address] [id number] [place] [address] Jan, [facility] [place] [facility] [address] [id number] [place] [address] Nov, [facility] [place] [facility] [address] [id number] [place] [address] Nov, [facility] [place] [facility] [address] [id number] [place] [address] Oct, [facility] [place] [facility] [address] [id number] [place] [address] Oct, [facility] [place] [facility] [address] [id number] [place] [address] Oct, [facility] [place] [facility] [address] [id number] [place] [address] Oct, [facility] [place] [facility] [address] [id number] [place] [address] 1166 Oct, [facility] [place] [facility] [address] [id number] [place] [address] Sep, [facility] [place] [facility] [address] [id number] [place] [address] Sep, [facility] [place] [facility] [address] [id number] [place] [address] 4[address] August, [facility] [place] [facility] [address] [id number] [place] [address] August, [facility] [place] [facility] [address] [id number] [place] [address] Jun, [facility] [place] [facility] [address] [id number] [place] [address] 1989 Jun, [facility] [place] [facility] [address] [id number] [place] [address] 11 Jun, 2013 [facility] [place] [facility] [address] [id number] [place] [address] 11 Jun, 2013 [facility] [place] [facility] [address] [id number] [place] [address] 10 Jun, 2013 [facility] [place] [facility] [address] [id number] [place] [address] 56[address] 10 Jun, 2013 [facility] [place] [facility] [address] [id number] [place] [address] 9836 07 Jun, 2013 [facility] [place] [facility] [address] [id number] [place] [address] 9807 Jun, [facility] [place] [facility] [address] [id number] [place] [address]- 6936 Jun, [facility] [place] [facility] [address] [id number] [place] [address] 2086 Jun, [facility] [place] [facility] [address] [id number] [place] [address] 43[address] Jun, [facility] [place] [facility] [address] [id number] [place] [address] Jun, [facility] [place] [facility] [address] [id number] [place] [address]- 0975 Jun, [facility] [place] [facility] [address] [id number] [place] [address]- 0485 Jun, [facility] [place] [facility] [address] [id number] [place] [address] 3529 May, [facility] [place] [facility] [address] [id number] [place] [address] 4[address] May, [facility] [place] [facility] [address] [id number] [place] [address]- 6[address] Apr, [facility] [place] [facility] [address] [id number] [place] [address] 7[address] Apr, [facility] [place] [facility] [address] [id number] [place] [address] 6660 Mar, [facility] [place] [facility] [address] [id number] [place] [address] 1146 Mar, [facility] [place] [facility] [address] [id number] [place] [address] 3714 Feb, [facility] [place] [facility] [address] [id number] [place] [address] Feb, [facility] [place] [facility] [address] [id number] [place] [address] 58[address] Feb, [facility] [place] [facility] [address] [id number] [place] [address] 27[address] Feb, [facility] [place] [facility] [address] [id number] [place] [address] Feb, [facility] [place] [facility] [address] [id number] [place] [address] 7339 Feb, [facility] [place] [facility] [address] [id number] [place] [address] 57[address] Feb, [facility] [place] [facility] [address] [id number] [place] [address] 9488 Jan, [facility] [place] [facility] [address] [id number] [place] [address] 6546 Jan, [facility] [place] [facility] [address] [id number], [place] [address] Dec, [facility] [place] [facility] [address] [id number] [place] [address] 3447 Dec, [facility] [place] [facility] [address] [id number] [place] [address] 2543 Nov, [facility] [place] [facility] [address] [id number], [place] [address] Nov, [facility] [place] [facility] [address] [id number], [place] [address] Oct, [facility] [address] [id number] [place] [address] 9149 Sep, [facility] [place] [facility] [address] [id number], [place] [address] Sep, [facility] [place] [facility] [address] [facility] [id number] [place] [address]297 August, [facility] [place] [facility] [address] [id number], [place] [address] August, [facility] [address] [id number] [place] [address] 0707 August, [facility] [place] [facility] [address] [facility] [id number] [place] [address] 8930 Jul, [facility] [address] [facility] [id number], [place] [address]- [address] May, [facility] [place] [facility] [address] [facility] [id number], [place] [address] 4077 May, [facility] [address] [facility] [id number], [place] [address] 9465 Apr, [facility] [place] [facility] [address] [facility] [id number], [place] [address] 4668 Apr, [facility] [place] [facility] [address] [facility] [id number], [place] [address] Feb, [facility] [place] [facility] [address] [facility] [id number], [place] [address] Feb, [facility] [place] [facility] [address] [id number], [place] [address] 9180 Jan, [facility] [place] [facility] [address] [facility] [id number], [place] [address] 6[address] Jan, [facility] [place] [facility] [address] [facility] [id number], [place] [address]- 9239 Jan, [facility] [place] [facility] [address] [id number] [place] [address]- 7116 Nov, [facility] [place] [facility] [address] [id number] [place] [address] 1946 Nov, [facility] [place] [facility] [address] [id number] [place] [address]- 1756 Nov, [facility] [place] [facility] [address] [id number] [place] [address]- 6058 Nov, [facility] [place] [facility] [address] [id number] [place] [address]- 2766 Nov, [facility] [place] [facility] [address] [id number] [place] [address]- 6670 Oct, [facility] [place] [facility] [address] [id number] [place] [address]- 4761 Oct, [facility] [place] [facility] [address] [id number] [place] [address]- 4315 Oct, [facility] [place] [facility] [address] [id number] [place] [address]- 5633 Oct, [facility] [place] [facility] [address] [id number] [place] [address]- 2887 Oct, [facility] [place] [facility] [address] [id number] [place] [address]- 7941 Oct, [facility] [place] [facility] [address] [id number] [place] [address]- 4383 Oct, [facility] [place] [facility] [address] [id number] [place] [address]- 1718 Sep, [facility] [place] [facility] [address] [id number] [place] [address]- 0362 Sep, [facility] [place] [facility] [address] [id number] [place] [address]- 3922 Sep, [facility] [place] [facility] [address] [id number] [place] [address] 7471 August, [facility] [address] [id number] [place] [address]- 0044 30 Jul, 2011 [facility] [place] [facility] [address] [id number] [place] [address]- 5993 Jul, [facility] [place] [facility] [address] [id number] [place] [address]- 4928 Jul, [facility] [place] [facility] [address] [id number] [place] [address]- 3794 16 Jul, 2011 [facility] [address] [id number] [place] [address]- 3914 Jul, [facility] [place] [facility] [address] [id number] [place] [address]- 3341 Jun, [facility] [place] [facility] [address] [id number] [place] [address]- 6625 May, [facility] [place] [facility] [address] [id number] [place] [address]- 0893 Apr, [facility] [place] [facility] [address] [id number] [place] [address]- 9431 Apr, [facility] [place] [facility] [address] [id number] [place] [address]- 8394 Apr, [facility] [place] [facility] [address] [id number] [place] [address]- 0090 Apr, [facility] [place] [facility] [address] [id number], [place] [address] 0925 Apr, [facility] [place] [facility] [address] [id number] [place] [address]- 6200 Apr, [facility] [place] [facility] [address] [id number] [place] [address]- 0759 Mar, [facility] [place] [facility] [address] [id number] [place] [address]- 8616 Mar, [facility] [place] [facility] [address] [id number] [place] [address]- 2873 08 Feb, 2011 [facility] [place] [facility] [address] [id number] [place] [address]- 5374 10 Nov, 2010 [facility] [place] [facility] [address] [id number] [place] [address]- 5567 Jun, [facility] [place] [facility] [address] [id number] [place] [address]- 3494 14 Apr, 2010 [facility] [place] [facility] [address] [id number] [place] [address]- 5470 Feb, [facility] [place] [facility] [address] [id number] [place] [address]- 5538 Jan, [facility] [place] [facility] [address] [id number] [place] [address]- 7175 Jan, [facility] [place] [facility] [address] [id number] [place] [address]- 1570 Jan, [facility] [place] [facility] [address] [id number] [place] [address]- 2188 Jan, [facility] [place] [facility] [address] [id number] [place] [address]- 6799 Nov, [facility] [place] [facility] [address] [id number] [place] [address]- 2070 Nov, [facility] [place] [facility] [address] [id number] [place] [address]- 8136 Mar, [facility] [place] [facility] [address] [id number] [place] [address]- 5550 Mar, [facility] [place] [facility] [address] [id number] [place] [address]- 8479 Feb, [facility] [place] [facility] [address] [id number] [place] [address] Feb, [facility] [place] [facility] [address] [id number] [place] [address]- 0767 Jan, [facility] [address] [facility] [id number] [place] [address]- [address]25 May, IMMUNIZATIONS No Known Immunizations SOCIAL HISTORY Never Assessed REASON FOR VISIT swelling f/u [facility], PT is having swelling in both ankles and feet PLAN OF CARE Activity Details Follow Up 4 Weeks Reason:diarrhea VITAL SIGNS Height 64 in 2017-10-29 Weight 159.8 lbs 2017-10-29 Temperature 98.1 degrees Fahrenheit 2017-10-29 Heart Rate 84 bpm 2017-10-29 Respiratory Rate 20 2017-10-29 BMI 27.43 kg/m2 2017-10-29 Blood pressure systolic 116 mmHg 2017-10-29 Blood pressure diastolic 74 mmHg 2017-10-29 MEDICATIONS Medication Instructions Dosage Frequency Start Date End Date Duration Status Potassimin 20 meq Orally 2 times a day 1 tablet 12h Active Atorvastatin Calcium 10 mg Orally Once a day 1 tablet 24h Apr, 30 day(s) Active Parafon Forte DSC 500 mg Orally Three times a day 1 tablet 8h Apr, 30 Active Metoprolol Succinate 50 MG Orally Once a day 1 tablet 24h Active Verapamil HCl ER 240 MG Orally Once a day 1 tablet 24h Active Celexa 20 mg Orally Once a day 1 tablet 24h Active Lasix 80 MG Orally Once a day 1 tablet 24h 20 Sep, 2017 Active Questran 4 GM Orally Once a day 1 packet mixed with water or non-carbonated drink 24h Oct, Active Gabapentin 800MG TAKE ONE TABLET BY MOUTH THREE TIMES DAILY Active RESULTS No Results PROCEDURES Procedure Date Ordered Result Body Site [facility] VISIT ESTABLISHED PATIENT October 29, 2017 VENIPJUS, ROUTINE* October 29, 2017 LAB NOT BILLED BY [facility] October 29, 2017 INSTRUCTIONS MEDICATIONS ADMINISTERED No Known Medications [...]
--- OUTSIDE RECORDS SUMMARY | 2018-03-25 15:02 | XMS REPORT ---
Author Author NAYA JACKSON Organization [facility] Address [address] [place] [address] Care Team Providers Care Communicable Disease Specialist Name Role Phone NAYA JACKSON Unavailable PROBLEMS Type Condition ICD9-CM Code CYU02-JK Code Onset Dates Condition Status SNOMED Code Problem Hypertriglyceridemia E78.1 Active 894299656 Problem Other chronic pain G89.29 Active 75277915 Problem Cervical disc disease M50.90 Active 613796630 Problem Major depressive disorder, single episode, mild F32.0 Active 68446408 Problem Irritable bowel syndrome with diarrhea K58.0 Active 772647251 Problem Paresthesia of bilateral legs R20.2 Active 511209498 Problem Ulcerative pancolitis without complication K51.00 Active 602100102 Problem Abnormal mammogram R92.8 Active 348771209 Problem Polyneuropathy G62.9 Active 04965400 Problem PTSD (post-traumatic stress disorder) F43.10 Active 57501768 Problem Major depressive disorder, recurrent episode, severe F33.2 Active 222981960561 Problem HTN (hypertension) I10 Active 69987409 Problem Depression F32.9 Active 16401364 Problem Parkinsons G20 Active 91944438 Problem Anxiety F41.9 Active 18276531 Problem COPD (chronic obstructive pulmonary disease) J44.9 Active 50762145 Problem Annular psoriasis L40.8 Active 963721370 ALLERGIES No Information ENCOUNTERS Encounter Location Date Diagnosis [facility] [id number] [address] Nov, Irritable bowel syndrome with diarrhea K58.0 and Alopecia L65.9 [facility] [address], [place] [address] Oct, Chronic diarrhea K52.9 and Acute colitis K52.9 [facility] [id number] [place] [address] 87123- 9229 Oct, Chronic diarrhea K52.9 [place] [id number] [place] [address] 41402- 2086 Oct, Chronic diarrhea K52.9 and Edema of both legs R60.0 [place] [facility] [id number] [place] [address] 56343- 4797 Sep, Medicare annual wellness visit, initial Z00.00 ; Parkinsons G20 ; COPD (chronic obstructive pulmonary disease) J44.9 ; Major depressive disorder, single episode, mild F32.0 ; HTN (hypertension) I10 ; Hypokalemia E87.6 and Adverse effect of carbonic-anhydrase inhibitors, benzothiadiazides and other diuretics, initial encounter T50.2X5A [place] [facility] [id number] [place] [address] 95437- 8681 Sep, Localized edema R60.0 [place] [id number] [place] [address] 74800- 6512 Sep, [place] [id number] [place] [address] 30865- 7571 Sep, Major depressive disorder, single episode, mild F32.0 ; PTSD (post-traumatic stress disorder) F43.10 and Edema of both legs R60.0 [place] [id number] [place] [address] 37721- 7593 August, Localized edema R60.0 [place] [id number] [place] [address] 42666- 7416 August, Localized edema R60.0 ; Weight gain R63.5 and Irritable bowel syndrome with diarrhea K58.0 [place] [id number] [place] [address] 39390- 5868 Jul, [place] [id number] [place] [address] 50295- 7283 Jul, Elevated liver enzymes R74.8 [address] [id number] [place] [address] 80497- 6457 Jul, Polyneuropathy G62.9 [facility] [address], [place] [address] 0169 Jul, [facility] [id number] [place] [address] 30227- 4224 Jul, Cervical disc disease M50.90 [facility] [id number] [place] [address] 09355- 2789 Jul, Elevated liver enzymes R74.8 [place] [id number] [place] [address] 56070- 0795 Jul, Polyneuropathy G62.9 ; Ulcerative pancolitis without complication K51.00 ; Depression F32.9 ; Leg weakness, bilateral R29.898 and Paresthesia of bilateral legs R20.2 [place] [id number] [place] [address] 56149- 8702 Jul, Polyneuropathy G62.9 ; Ulcerative pancolitis without complication K51.00 ; Depression F32.9 ; Leg weakness, bilateral R29.898 and Paresthesia of bilateral legs R20.2 [place] [id number] [place] [address] 13674- 1614 Jun, [place] [id number] [place] [address] 49294- 9310 Jun, Fibrous breast lumps N63.0 [place] [address] [place] [address] 22782- 8191 Jun, Ulcerative pancolitis without complication K51.00 [place] [id number] [place] [address] 97422- 2202 Jun, Abnormal mammogram R92.8 [place] [id number] [place] [address] 50183- 3817 Jun, Breast density R92.2 [place] [id number] [place] [address] 93802- 2133 Jun, [place] [id number] [place] [address] 70349- 2178 Jun, PTSD (post-traumatic stress disorder) F43.10 [place] [id number] [place] [address] 23922- 5812 May, [place] [id number] [place] [address] 27981- 6430 May, Breast cancer screening Z12.31 and Fibrous breast lumps N63.0 [place] [id number] [place] [address] 35444- 1001 Apr, Ulcerative pancolitis without complication K51.00 [place] [id number] [place] [address] 58732- 6647 Apr, [place] [id number] [place] [address] 13320- 9360 Apr, Ulcerative pancolitis without complication K51.00 ; Low back pain M54.5 and Other chronic pain G89.29 [place] [id number] [place] [address] 33322- 6326 28 Dec, 2016 Cervical disc disease M50.90 and HTN (hypertension) I10 [place] [id number] [place] [address] 61312- 9574 05 Dec, 2016 Moderate episode of recurrent major depressive disorder F33.1 and PTSD (post-traumatic stress disorder) F43.10 [place] [address] [place] [address] 84805- 4638 Oct, [place] [id number] [place] [address] 61082- 6676 Oct, Irritable bowel syndrome with diarrhea K58.0 [place] [id number] [place] [address] 91505- 1964 07 Oct, 2016 Irritable bowel syndrome with diarrhea K58.0 [place] [id number] [place] [address] 39068- 4593 Sep, Diarrhea, unspecified type R19.7 ; Chronic pain G89.29 ; Hypertriglyceridemia E78.1 ; PTSD (post-traumatic stress disorder) F43.10 ; History of herniated intervertebral disc Z87.39 and Depression F32.9 [facility] [id number] [place] [address] 90049- 2616 August, Moderate episode of recurrent major depressive disorder F33.1 and PTSD (post-traumatic stress disorder) F43.10 [place] [id number] [place] [address] 09958- 6194 August, [place] [address] 22431- 8160 Jul, [place] [id number] [place] [address] 00245- 5560 Jul, PTSD (post-traumatic stress disorder) F43.10 ; IBS ( irritable bowel syndrome) K58.9 ; HTN (hypertension) I10 ; Hypertriglyceridemia E78.1 ; Chronic pain G89.29 ; Anxiety F41.9 ; Depression F32.9 ; COPD (chronic obstructive pulmonary disease) J44.9 ; Irritable bowel syndrome with diarrhea K58.0 and Second degree hemorrhoids K64.1 [place] [id number] [place] [address] 91111- 9430 Jul, PTSD (post-traumatic stress disorder) F43.10 [place] [id number] [place] [address] 14887- 8782 Jul, [place] [id number] [place] [address] 24191- 7019 Jun, [place] [id number] [place] [address] 62673- 1711 Jun, HTN (hypertension) I10 [place] [id number] [place] [address] 09528- 3146 May, Depression F32.9 ; Post traumatic stress disorder F43.10 and Screening mammogram, encounter for Z12.31 [place] [id number] [place] [address] 32060- 5536 May, [address] 97460- 5382 May, PTSD (post-traumatic stress disorder) F43.10 and Major depressive disorder in partial remission F32.[address] 37651- 8485 May, PTSD (post-traumatic stress disorder) F43.10 ; IBS ( irritable bowel syndrome) K58.9 ; History of herniated intervertebral disc Z87.39 ; Anxiety F41.9 ; Depression F32.9 ; Hypertriglyceridemia E78.1 ; Eczema of both hands L30.9 ; HTN (hypertension) I10 and COPD (chronic obstructive pulmonary disease) J44.9 [address] [id number] [place] [address] 96718- 8054 Apr, Major depressive disorder in partial remission F32.4 and PTSD (post-traumatic stress disorder) F43.10 [address] [id number] [place] [address] 70412- 4538 Apr, PTSD (post-traumatic stress disorder) F43.10 [address] [id number] [place] [address] 56719- 9434 Mar, IBS (irritable bowel syndrome) K58.9 ; PTSD (post-traumatic stress disorder) F43.10 ; COPD (chronic obstructive pulmonary disease) J44.9 ; History of herniated intervertebral disc Z87.39 ; HTN (hypertension) I10 ; Parkinsons G20 ; Annular psoriasis L40.8 and Hypertriglyceridemia E78.1 [address] [id number] [place] [address] 46765- 3879 Feb, [place] [id number] [place] [address] 38787- 4242 Feb, Moderate episode of recurrent major depressive disorder F33.1 and PTSD (post-traumatic stress disorder) F43.[id number] [place] [address] 52326- 1217 Jan, Onychocryptosis L60.0 [facility] [address] 33218- 3703 30 Dec, 2015 [facility] [address] 91038- 8130 Dec, Dizziness R42 ; PTSD (post-traumatic stress disorder) F43.10 ; Posttraumatic stress disorder F43.10 ; IBS (irritable bowel syndrome) K58.9 ; History of herniated intervertebral disc Z87.39 ; HTN (hypertension) I10 ; Chronic pain G89.29 and Hypercholesterolemia E78.0 [place] [address] 53561- 3250 Dec, [place] [address] 38152- 5093 Dec, [facility] [address] 43339 -6851 Dec, Annular psoriasis L40.8 [place] [address] 39772- 0941 Nov, [place] [address] 36967- 8577 Nov, [place] [address] 55088- 2978 Nov, HTN (hypertension) I10 ; Chronic pain G89.29 ; Annular psoriasis L40.8 ; IBS (irritable bowel syndrome) K58.9 and Vision changes H53.9 [place] [address] 77028- 7141 Oct, [facility] [address] 77544- 1327 Oct, IBS (irritable bowel syndrome) K58.9 ; PTSD (post-traumatic stress disorder) F43.10 ; HTN (hypertension) I10 ; Depression F32.9 ; History of herniated intervertebral disc Z87.39 ; Anxiety F41.9 ; Chronic pain G89.29 and Hypercholesterolemia E78.0 [place] [address] 25635- 0744 Oct, Major depressive disorder in partial remission F32.4 and PTSD (post-traumatic stress disorder) F43.10 [place] [address] 80385- 4891 Oct, IBS (irritable bowel syndrome) K58.9 ; PTSD (post-traumatic stress disorder) F43.10 ; Major depressive disorder, recurrent episode, severe F33.2 ; Anxiety F41.9 and Impacted cerumen, unspecified laterality H61.20 [place] [id number] [place] [address] 78335- 4111 Oct, Major depressive disorder in partial remission F32.4 ; Posttraumatic stress disorder F43.10 and Anxiety F41.9 [place] [address] 29584- 6348 Sep, [place] [address] 34703- 3808 Sep, Anxiety F41.9 ; Major depressive disorder, recurrent episode , mild F33.0 and Posttraumatic stress disorder F43.10 [place] [id number] [place] [address] 49929- 8115 Sep, [place] [address] 65881- 8832 August, [place] [address] 63207- 7430 Jul, Contact dermatitis L25.9 [place] [id number] [place] [address] 79885- 0971 Jul, Major depressive disorder, recurrent episode, severe F33.2 ; Posttraumatic stress disorder F43.10 and Anxiety F41.9 [place] [address] [place] [address]- 4319 Jul, [place] [id number] [place] [address] 22527- 0554 Jun, IBS (irritable bowel syndrome) K58.9 ; COPD (chronic obstructive pulmonary disease) J44.9 ; HTN (hypertension) I10 ; Chronic pain G89.29 ; Anxiety F41.9 ; PTSD (post-traumatic stress disorder) F43.10 ; Parkinsons G20 and Hypercholesterolemia E78.0 [place] [id number] [place] [address] 07890- 4072 Jun, [place] [address] 79498- 7978 Jun, Onychocryptosis L60.0 and Onychomycosis B35.1 [place] [id number] [place] [address] 66785- 4346 May, [place] [id number] [place] [address] 43395- 6736 May, IBS (irritable bowel syndrome) K58.9 ; COPD (chronic obstructive pulmonary disease) J44.9 ; History of herniated intervertebral disc Z87.39 ; HTN (hypertension) I10 ; Anxiety F41.9 ; Depression F32.9 and Major depressive disorder in partial remission F32.4 [place] [id number] [place] [address] 96858- 7501 08 May, 2015 IBS (irritable bowel syndrome) K58.9 ; COPD (chronic obstructive pulmonary disease) J44.9 ; History of herniated intervertebral disc Z87.39 ; HTN (hypertension) I10 ; Anxiety F41.9 ; Depression F32.9 and Major depressive disorder in partial remission F32.4 [place] [id number] [place] [address] 75681- 4665 May, [place] [id number] [place] [address] 33121- 7884 May, Anxiety F41.9 ; IBS (irritable bowel syndrome) K58.9 and Major depressive disorder in partial remission F32.4 [place] [id number] [place] [address] 58695- 3047 18 Apr, 2015 Encounter for screening mammogram for breast cancer Z12.31 [place] [id number] [place] [address] 10455- 9521 15 Apr, 2015 [place] [address] 72061- 6797 11 Apr, 2015 [place] [id number] [place] [address] 80471- 1675 Apr, COPD (chronic obstructive pulmonary disease) J44.9 ; HTN ( hypertension) I10 ; Chronic pain G89.29 ; Anxiety F41.9 ; PTSD (post-traumatic stress disorder) F43.10 and IBS (irritable bowel syndrome) K58.[address] 69504- 1740 Apr, PTSD (post-traumatic stress disorder) F43.10 [address] [id number] [place] [address] 50108- 3952 08 Apr, 2015 Onychocryptosis L60.0 and Onychomycosis B35.1 [address] [id number] [place] [address] 62783- 9173 04 Apr, 2015 IBS (irritable bowel syndrome) K58.9 ; COPD (chronic obstructive pulmonary disease) J44.9 ; History of herniated intervertebral disc Z87.39 ; HTN (hypertension) I10 ; Chronic pain G89.29 ; Anxiety F41.9 ; Depression F32.9 ; Parkinsons G20 ; Hypercholesteremia E78.0 and Hemorrhoid K64.9 [place] [id number] [place] [address] 25577- 4624 Mar, [id number] [place] [address] 00029- 7676 Mar, Major depressive disorder, recurrent episode, severe F33.2 and Posttraumatic stress disorder F43.10 [facility] [address], [place] [address] 2546 Mar, [facility] [id number] [place] [address] 69802 2546 Mar, [facility] [address], [place] [address] 2546 Mar, PTSD (post-traumatic stress disorder) F43.10 [facility] [address], [place] [address] 2546 Mar, Onychomycosis B35.1 and Hypertension, benign I10 [facility] [id number] [place] [address] 66779 2546 Mar, Onychomycosis B35.1 and Hypertension, benign I10 [facility] [id number] [place] [address] 38638- 1836 Feb, PTSD (post-traumatic stress disorder) F43.10 [facility] [address], [place] [address] 2546 Feb, [facility] [id number] [place] [address] 58311 2546 Feb, Major depressive disorder, recurrent episode, severe F33.2 and Posttraumatic stress disorder F43.10 [facility] [address], [place] [address] 2546 Jan, PTSD (post-traumatic stress disorder) F43.10 [facility] [address], [place] [address] 2546 Jan, Rash R21 [facility] [id number] [place] [address] 25387 2546 Jan, PTSD (post-traumatic stress disorder) F43.10 [facility] [address], [place] [address] 2546 Jan, [facility] [id number] [place] [address]- 4572 30 Dec, 2014 Neuropathy 355.9 [facility] [id number] [place] [address] 24957- 4564 30 Dec, 2014 PTSD (post-traumatic stress disorder) F43.10 [facility] [id number] [place] [address] 74539- 5680 29 Dec, 2014 MDD (major depressive disorder), recurrent episode, severe 296.33 and PTSD (post-traumatic stress disorder) 309.81 [facility] [id number] [place] [address] 21775- 8037 Dec, [facility] [id number] [place] [address] 77831- 2314 Dec, Ingrown toenail 703.0 [facility] [id number] [place] [address] 77227- 2726 Dec, Posttraumatic stress disorder 309.81 [facility] [id number] [place] [address] 44047- 2515 Nov, Depressive disorder, not elsewhere classified 311 and Anxiety state, unspecified 300.00 [facility] [id number] [place] [address] 49302- 3385 Oct, Depressive disorder, not elsewhere classified 311 and Anxiety state, unspecified 300.00 [facility] [id number] [place] [address] 28938- 1931 Oct, Depressive disorder, not elsewhere classified 311 ; Anxiety state, unspecified 300.00 and No condition on Alton II V71.09 [facility] [address] [id number] Oct, Dental examination V72.2 [facility] [address] [place] [address] 61636- 8448 Oct, [facility] [id number] [place] [address] 45337- 9650 August, [facility] [address], [place] [address]- 8851 August, Seizure 780.39 and IBS (irritable bowel syndrome) 564.1 [facility] [address] [id number] [place] [address]- 5446 14 Jul, 2014 [facility] [address] [place] [address]- 7083 Jul, [facility] [address] [facility] [id number] [address]- 2116 Jun, [facility] [address] [facility] [id number] [place] [address]- 1450 Jun, [facility] [address] [facility] [id number] [place] [address]- 2753 Jun, [facility] [address] [place] [address]- 4416 Jun, [facility] [address] [facility] [id number], [place] [address]- 1982 Jun, [facility] [id number] [place] [address]- 2476 Jun, [facility] [id number], [place] [address]- 0247 Jun, [facility] [address], [place] [address]- 9185 Jun, [facility] [address] [facility] [id number], [place] [address]- 0525 Jun, [facility] [address] [facility] [id number] [place] [address]- 7713 Jun, [facility] [address] [facility] [id number], [place] [address]- 2599 Jun, [facility] [id number] [address]- 4410 Jun, [facility] [address] [facility] [id number] [place] [address]- 4431 13 May, 2014 [facility] [address] [id number] [place] [address]- 9216 May, [facility] [address] [id number] [place] [address]- 8846 Apr, [facility] [address] [id number] [place] [address]- 7756 Apr, [facility] [address] [id number] [place] [address]- 8395 Mar, [facility] [address] [id number] [place] [address]- 4462 Mar, [facility] [address] [id number] [place] [address]- 4374 Mar, [facility] [address] [id number] [place] [address]- 8027 Mar, [facility] [address] [id number] [place] [address]- 7950 Mar, [facility] [address] [id number] [place] [address]- 9581 Mar, [facility] [address] [id number] [place] [address] Mar, [facility] [address] [id number] [place] [address] Mar, [facility] [address] [id number] [place] [address] Mar, [facility] [place] [facility] [address] [id number] [place] [address] Mar, [facility] [place] [facility] [address] [id number] [place] [address] Mar, [facility] [place] [facility] [address] [id number] [place] [address] Mar, [facility] [place] [facility] [address] [id number] [place] [address] Mar, [facility] [place] [facility] [address] [id number] [place] [address] Mar, [facility] [place] [facility] [address] [id number] [place] [address] Mar, [facility] [place] [facility] [address] [id number] [place] [address] Mar, [facility] [place] [facility] [address] [id number] [place] [address] Mar, [facility] [place] [facility] [address] [id number] [place] [address] Mar, [facility] [place] [facility] [address] [id number] [place] [address] Mar, [facility] [place] [facility] [address] [id number] [place] [address] Feb, [facility] [place] [facility] [address] [id number] [place] [address] Feb, [facility] [place] [facility] [address] [id number] [place] [address] Feb, [facility] [place] [facility] [address] [id number] [place] [address] 18 Feb, 2014 [facility] [place] [facility] [address] [id number], [place] [address] 17 Feb, 2014 [facility] [place] [facility] [address] [id number] [place] [address] 17 Feb, 2014 [facility] [place] [facility] [address] [id number] [place] [address] 14 Feb, 2014 [facility] [place] [facility] [address] [id number] [place] [address] 14 Feb, 2014 [facility] [place] [facility] [address] [id number], [place] [address] Jan, [facility] [place] [facility] [address] [id number] [place] [address] Jan, [facility] [place] [facility] [address] [id number] [place] [address] Nov, [facility] [place] [facility] [address] [id number] [place] [address] Nov, [facility] [place] [facility] [address] [id number] [place] [address] Oct, [facility] [place] [facility] [address] [id number] [place] [address] Oct, [facility] [place] [facility] [address] [id number] [place] [address] 49[address] Oct, [facility] [place] [facility] [address] [id number] [place] [address]107 Oct, [facility] [place] [facility] [address] [id number] [place] [address] 27[address] Oct, [facility] [place] [facility] [address] [id number] [place] [address] 1661 Sep, [facility] [place] [facility] [address] [id number] [place] [address] 5468 Sep, [facility] [place] [facility] [address] [id number] [place] [address]- 0927 August, [facility] [place] [facility] [address] [id number] [place] [address]- 4235 August, [facility] [place] [facility] [address] [id number] [place] [address]- 5584 Jun, [facility] [place] [facility] [address] [id number] [place] [address] Jun, [facility] [place] [facility] [address] [id number] [place] [address]- 0147 Jun, [facility] [place] [facility] [address] [id number] [place] [address]86 11 Jun, 2013 [facility] [place] [facility] [address] [id number] [place] [address] 10 Jun, 2013 [facility] [place] [facility] [address] [id number] [place] [address]- 5656 10 Jun, 2013 [facility] [place] [facility] [address] [id number] [place] [address]- [address]40 07 Jun, 2013 [facility] [place] [facility] [address] [id number] [place] [address] 07 Jun, 2013 [facility] [place] [facility] [address] [id number] [place] [address]- 5826 Jun, [facility] [place] [facility] [address] [id number] [place] [address]- 1847 Jun, [facility] [place] [facility] [address] [id number] [place] [address] Jun, [facility] [place] [facility] [address] [id number] [place] [address]- 2015 04 Jun, 2013 [facility] [place] [facility] [address] [id number] [place] [address]- 09[address] Jun, [facility] [place] [facility] [address] [id number] [place] [address] 8987 Jun, [facility] [place] [facility] [address] [id number] [place] [address] 8102 May, [facility] [place] [facility] [address] [id number] [place] [address]- 7469 May, [facility] [place] [facility] [address] [id number] [place] [address] 7420 Apr, [facility] [place] [facility] [address] [id number] [place] [address]- 0906 Apr, [facility] [place] [facility] [address] [id number] [place] [address] Mar, [facility] [place] [facility] [address] [id number] [place] [address]- 2320 Mar, [facility] [place] [facility] [address] [id number] [place] [address] 1756 Feb, [facility] [place] [facility] [address] [facility] [id number] [place] [address]- 7198 Feb, [facility] [place] [facility] [address] [id number] [place] [address]- 9371 Feb, [facility] [place] [facility] [address] [id number] [place] [address] 0619 Feb, [facility] [place] [facility] [address] [id number] [place] [address] 4962 Feb, [facility] [place] [facility] [address] [id number] [place] [address] 0167 Feb, [facility] [place] [facility] [address] [id number], [place] [address] Feb, [facility] [place] [facility] [address] [id number] [place] [address]- 8501 Jan, [facility] [place] [facility] [address] [id number], [place] [address]- 83[address] Jan, [facility] [place] [facility] [address] [id number], [place] [address] 30[address] Dec, [facility] [place] [facility] [address] [id number], [place] [address] 2543 Dec, [facility] [place] [facility] [address] [id number], [place] [address] Nov, [facility] [place] [facility] [address] [id number], [place] [address]- 8768 Nov, [facility] [place] [facility] [address] [facility] [id number], [place] [address]- 2547 Oct, [facility] [place] [facility] [address] [id number] [place] [address]- 6087 Sep, [facility] [address] [id number] [place] [address]- 1704 Sep, [facility] [place] [facility] [address] [id number] [place] [address]- 2418 August, [facility] [address] [id number] [place] [address]- 5094 August, [facility] [place] [facility] [address] [id number] [place] [address]- 7890 August, [facility] [address] [id number] [place] [address]- 4217 Jul, [facility] [place] [facility] [address] [id number] [place] [address]- 9415 May, [facility] [address] [id number] [place] [address]- 0058 May, [facility] [address] [id number] [place] [address]- 1481 Apr, [facility] [address] [id number] [place] [address]- 3308 Apr, [facility] [address] [id number] [place] [address]- 6412 Feb, [facility] [place] [facility] [address] [id number] [place] [address]- 9185 Feb, [facility] [place] [facility] [address] [id number] [place] [address]- 8237 Jan, [facility] [place] [facility] [address] [id number] [place] [address]- 8323 Jan, [facility] [place] [facility] [address] [id number] [place] [address]- 2546 Jan, [facility] [place] [facility] [address] [id number] [place] [address]- 2907 Nov, [facility] [place] [facility] [address] [id number] [place] [address]- 7778 Nov, [facility] [place] [facility] [address] [id number] [place] [address]- 0790 Nov, [facility] [place] [facility] [address] [id number] [place] [address]- 6220 Nov, [facility] [place] [facility] [address] [id number] [place] [address]- 9341 Nov, [facility] [place] [facility] [address] [id number] [place] [address]- 7598 Oct, [facility] [place] [facility] [address] [id number] [place] [address]- 7933 Oct, [facility] [place] [facility] [address] [id number] [place] [address]- 1514 Oct, [facility] [place] [facility] [address] [id number] [place] [address]- 5284 Oct, [facility] [place] [facility] [address] [id number] [place] [address]- 4510 Oct, [facility] [place] [facility] [address] [id number] [place] [address]- 8025 Oct, [facility] [place] [facility] [address] [id number] [place] [address]- 0004 Oct, [facility] [place] [facility] [address] [id number] [place] [address]- 2235 Sep, [facility] [place] [facility] [address] [id number] [place] [address]- 9105 Sep, [facility] [place] [facility] [address] [id number] [place] [address]- 8688 Sep, [facility] [place] [facility] [address] [id number] [place] [address]- 7482 August, [facility] [place] [facility] [address] [id number] [place] [address]- 6680 30 Jul, 2011 [facility] [address] [id number] [place] [address]- 0886 28 Jul, 2011 [facility] [place] [facility] [address] [id number] [place] [address]- 5254 27 Jul, 2011 [facility] [place] [facility] [address] [id number] [place] [address]- 1322 16 Jul, 2011 [facility] [place] [facility] [address] [id number] [place] [address]- 7471 13 Jul, 2011 [facility] [place] [facility] [address] [id number] [place] [address]- 9947 Jun, [facility] [place] [facility] [address] [id number] [place] [address]- 2534 May, [facility] [address] [id number] [place] [address]- 2880 Apr, [facility] [place] [facility] [address] [id number] [place] [address]- 0391 Apr, [facility] [place] [facility] [address] [id number] [place] [address]- 2281 Apr, [facility] [place] [facility] [address] [id number] [place] [address]- 5666 Apr, [facility] [place] [facility] [address] [id number] [place] [address]- 4070 Apr, [facility] [place] [facility] [address] [id number] [place] [address]- 8051 Apr, [facility] [place] [facility] [address] [id number] [place] [address]- 1398 Mar, [facility] [place] [facility] [address] [id number] [place] [address]- 1692 Mar, [facility] [place] [facility] [address] [facility] [id number] [place] [address]- 7787 Feb, [facility] [place] [facility] [address] [id number] [place] [address]- 0065 10 Nov, 2010 [facility] [place] [facility] [address] [id number] [place] [address]- 3677 Jun, [facility] [place] [facility] [address] [id number] [place] [address]- 7989 Apr, [facility] [place] [facility] [address] [id number] [place] [address]- 2053 Feb, [facility] [place] [facility] [address] [id number] [place] [address]- 4324 Jan, [facility] [place] [facility] [address] [id number] [place] [address]- 9087 Jan, [facility] [place] [facility] [address] [id number] [place] [address]- 4107 Jan, [facility] [place] [facility] [address] [id number] [place] [address]- 9997 Jan, [facility] [place] [facility] [address] [id number] [place] [address]- 2629 16 Nov, 2009 [facility] [place] [facility] [address] [id number] [place] [address]- 2216 Nov, [facility] [place] [facility] [address] [facility] [id number] [place] [address]- 3997 Mar, [facility] [place] [facility] [address] [id number] [place] [address]- 3676 Mar, [facility] [place] [facility] [address] [id number] [place] [address]- 5909 Feb, [facility] [place] [facility] [address] [id number] [place] [address]- 6142 Feb, [facility] [place] [facility] [address] [id number] [place] [address]- 1212 23 Jan, 2009 [facility] [place] [facility] [address] [id number] [place] [address]- 5737 May, IMMUNIZATIONS No Known Immunizations SOCIAL HISTORY Never Assessed REASON FOR VISIT Medication PLAN OF CARE VITAL SIGNS MEDICATIONS Medication Instructions Dosage Frequency Start Date End Date Duration Status Lasix 80 MG Orally Once a day 1 tablet 24h Sep, Active Questran 4 GM Orally Once a day 1 packet mixed with water or non-carbonated drink 24h Oct, Active RESULTS No Results PROCEDURES No Known procedures [...]
--- OUTSIDE RECORDS SUMMARY | 2018-03-25 15:03 | XMS REPORT ---
Author Author NAYA JACKSON Organization [facility] Address [address] [place] [address] Care Team Providers Care Fire Behavior Analyst Name Role Phone NAYA JACKSON Unavailable PROBLEMS Type Condition ICD9-CM Code VIU02-DV Code Onset Dates Condition Status SNOMED Code Problem Hypertriglyceridemia E78.1 Active 304021621 Problem Other chronic pain G89.29 Active 92117254 Problem Cervical disc disease M50.90 Active 470340795 Problem Major depressive disorder, single episode, mild F32.0 Active 05448274 Problem Irritable bowel syndrome with diarrhea K58.0 Active 353960954 Problem Paresthesia of bilateral legs R20.2 Active 261767831 Problem Ulcerative pancolitis without complication K51.00 Active 589564075 Problem Abnormal mammogram R92.8 Active 430205418 Problem Polyneuropathy G62.9 Active 72861794 Problem PTSD (post-traumatic stress disorder) F43.10 Active 87314067 Problem Major depressive disorder, recurrent episode, severe F33.2 Active 544509151393 Problem HTN (hypertension) I10 Active 93867557 Problem Depression F32.9 Active 96755924 Problem Parkinsons G20 Active 72535777 Problem Anxiety F41.9 Active 39956229 Problem COPD (chronic obstructive pulmonary disease) J44.9 Active 84643313 Problem Annular psoriasis L40.8 Active 643651788 ALLERGIES Substance Reaction Event Type Date Status Latex Unknown Drug Allergy Sep, Active Budesonide rash/swelling Drug Allergy Sep, Active ENCOUNTERS Encounter Location Date Diagnosis [facility] [id number] [address] Nov, Irritable bowel syndrome with diarrhea K58.0 and Alopecia L65.9 [facility] [id number] [address] Oct, Chronic diarrhea K52.9 and Acute colitis K52.9 [facility] [address] [address] Oct, Chronic diarrhea K52.9 [facility] [id number] [place] [address] 14733- 1717 Oct, Chronic diarrhea K52.9 and Edema of both legs R60.0 [facility] [id number] [place] [address] 63020- 6773 Sep, Medicare annual wellness visit, initial Z00.00 ; Parkinsons G20 ; COPD (chronic obstructive pulmonary disease) J44.9 ; Major depressive disorder, single episode, mild F32.0 ; HTN (hypertension) I10 ; Hypokalemia E87.6 and Adverse effect of carbonic-anhydrase inhibitors, benzothiadiazides and other diuretics, initial encounter T50.2X5A [facility] [id number] [place] [address] 65750- 0133 Sep, Localized edema R60.0 [facility] [id number] [place] [address] 12495- 7832 Sep, [facility] [id number] [place] [address] 56950- 3491 Sep, Major depressive disorder, single episode, mild F32.0 ; PTSD (post-traumatic stress disorder) F43.10 and Edema of both legs R60.0 [facility] [address] [address] August, Localized edema R60.0 [facility] [facility] [id number] [place] [address] 99801- 1883 August, Localized edema R60.0 ; Weight gain R63.5 and Irritable bowel syndrome with diarrhea K58.0 [facility] [facility] [id number] [place] [address] 90918- 5830 Jul, [facility] [id number] [place] [address] 39893- 1206 Jul, Elevated liver enzymes R74.8 [facility] [id number] [place] [address] 43612- 7522 Jul, Polyneuropathy G62.9 [facility] [id number] [place] [address] 36013- 7472 Jul, [facility] [id number] [place] [address] 96180- 8382 Jul, Cervical disc disease M50.90 [facility] [id number] [place] [address] 26981- 3860 Jul, Elevated liver enzymes R74.8 [facility] [facility] [id number] [place] [address] 29037- 8029 Jul, Polyneuropathy G62.9 ; Ulcerative pancolitis without complication K51.00 ; Depression F32.9 ; Leg weakness, bilateral R29.898 and Paresthesia of bilateral legs R20.2 [facility] [facility] [id number] [place] [address] 71174- 5043 Jul, Polyneuropathy G62.9 ; Ulcerative pancolitis without complication K51.00 ; Depression F32.9 ; Leg weakness, bilateral R29.898 and Paresthesia of bilateral legs R20.2 [place] [id number] [place] [address] 92248- 7632 Jun, [facility] [id number] [place] [address] 89550- 3178 Jun, Fibrous breast lumps N63.0 [facility] [id number] [place] [address] 99823- 3408 Jun, Ulcerative pancolitis without complication K51.00 [facility] [facility] [id number] [place] [address] 67756- 9420 Jun, Abnormal mammogram R92.8 [facility] [id number] [place] [address] 67279- 2312 Jun, Breast density R92.2 [facility] [id number] [address]- 4903 Jun, [facility] [id number] [place] [address] 00175- 4705 Jun, PTSD (post-traumatic stress disorder) F43.10 [place] [id number] [place] [address] 72458- 3998 May, [facility] [facility] [address] 46606- 5449 May, Breast cancer screening Z12.31 and Fibrous breast lumps N63.0 [facility] [facility] [id number] [place] [address] 84968- 2578 Apr, Ulcerative pancolitis without complication K51.00 [place] [id number] [place] [address] 25033- 7878 Apr, [place] [id number] [place] [address] 53204- 1831 Apr, Ulcerative pancolitis without complication K51.00 ; Low back pain M54.5 and Other chronic pain G89.29 [place] [id number] [place] [address] 21541- 8726 Dec, Cervical disc disease M50.90 and HTN (hypertension) I10 [place] [id number] [place] [address] 79956- 0043 05 Dec, 2016 Moderate episode of recurrent major depressive disorder F33.1 and PTSD (post-traumatic stress disorder) F43.10 [place] [address] [place] [address] 83624- 0216 Oct, [place] [id number] [place] [address] 63397- 7899 Oct, Irritable bowel syndrome with diarrhea K58.0 [facility] [address] [place] [address] 21096- 8990 Oct, Irritable bowel syndrome with diarrhea K58.0 [facility] [id number] [address] 8524 Sep, Diarrhea, unspecified type R19.7 ; Chronic pain G89.29 ; Hypertriglyceridemia E78.1 ; PTSD (post-traumatic stress disorder) F43.10 ; History of herniated intervertebral disc Z87.39 and Depression F32.9 [facility] [id number] [place] [address] 25174- 6624 August, Moderate episode of recurrent major depressive disorder F33.1 and PTSD (post-traumatic stress disorder) F43.10 [facility] [id number] [place] [address] 83267- 9262 August, [place] [id number] [place] [address] 71206- 1892 Jul, [place] [id number] [place] [address] 53064- 3016 Jul, PTSD (post-traumatic stress disorder) F43.10 ; IBS ( irritable bowel syndrome) K58.9 ; HTN (hypertension) I10 ; Hypertriglyceridemia E78.1 ; Chronic pain G89.29 ; Anxiety F41.9 ; Depression F32.9 ; COPD (chronic obstructive pulmonary disease) J44.9 ; Irritable bowel syndrome with diarrhea K58.0 and Second degree hemorrhoids K64.1 [place] [id number] [place] [address] 37101- 9862 Jul, PTSD (post-traumatic stress disorder) F43.10 [facility] [id number] [place] [address] 81703- 2580 Jul, [place] [id number] [place] [address] 87089- 5560 Jun, [place] [id number] [place] [address] 91537- 3614 Jun, HTN (hypertension) I10 [place] [id number] [place] [address] 99840- 0913 May, Depression F32.9 ; Post traumatic stress disorder F43.10 and Screening mammogram, encounter for Z12.31 [facility] [id number] [place] [address] 51701- 9181 May, [place] [address] 84695- 0420 09 May, 2016 PTSD (post-traumatic stress disorder) F43.10 and Major depressive disorder in partial remission F32.4 [address] [address] 61602- 9538 02 May, 2016 PTSD (post-traumatic stress disorder) F43.10 ; IBS ( irritable bowel syndrome) K58.9 ; History of herniated intervertebral disc Z87.39 ; Anxiety F41.9 ; Depression F32.9 ; Hypertriglyceridemia E78.1 ; Eczema of both hands L30.9 ; HTN (hypertension) I10 and COPD (chronic obstructive pulmonary disease) J44.9 [address] [address] 15781- 4618 Apr, Major depressive disorder in partial remission F32.4 and PTSD (post-traumatic stress disorder) F43.10 [id number] [place] [address] 25835- 3587 Apr, PTSD (post-traumatic stress disorder) F43.10 [place] [id number] [place] [address] 90781- 6868 Mar, IBS (irritable bowel syndrome) K58.9 ; PTSD (post-traumatic stress disorder) F43.10 ; COPD (chronic obstructive pulmonary disease) J44.9 ; History of herniated intervertebral disc Z87.39 ; HTN (hypertension) I10 ; Parkinsons G20 ; Annular psoriasis L40.8 and Hypertriglyceridemia E78.1 [address] [id number] [place] [address] 80406- 4929 Feb, [id number] [place] [address] 85521- 1868 15 Nov, 2016 Moderate episode of recurrent major depressive disorder F33.1 and PTSD (post-traumatic stress disorder) F43.10 [place] [id number] [place] [address] 25121- 6703 07 Jan, 2016 Onychocryptosis L60.0 [facility] [id number] [place] [address] 23045- 8675 30 Dec, 2015 [address] [address] 75823- 2740 Dec, Dizziness R42 ; PTSD (post-traumatic stress disorder) F43.10 ; Posttraumatic stress disorder F43.10 ; IBS (irritable bowel syndrome) K58.9 ; History of herniated intervertebral disc Z87.39 ; HTN (hypertension) I10 ; Chronic pain G89.29 and Hypercholesterolemia E78.0 [address] [address] 48109- 2782 Dec, [place] [address] 25941- 1951 Dec, [facility] [address] 36909 -1251 Dec, Annular psoriasis L40.8 [address] 31932- 0705 Nov, [place] [address] 34690- 4095 Nov, [place] [address] 98624- 8583 Nov, HTN (hypertension) I10 ; Chronic pain G89.29 ; Annular psoriasis L40.8 ; IBS (irritable bowel syndrome) K58.9 and Vision changes H53.9 [facility] [address] 82489- 1694 Oct, [facility] [address] 92041- 7392 Oct, IBS (irritable bowel syndrome) K58.9 ; PTSD (post-traumatic stress disorder) F43.10 ; HTN (hypertension) I10 ; Depression F32.9 ; History of herniated intervertebral disc Z87.39 ; Anxiety F41.9 ; Chronic pain G89.29 and Hypercholesterolemia E78.0 [address] [place] [address] 92005- 2460 Oct, Major depressive disorder in partial remission F32.4 and PTSD (post-traumatic stress disorder) F43.10 [place] [id number] [place] [address] 37217- 2325 Oct, IBS (irritable bowel syndrome) K58.9 ; PTSD (post-traumatic stress disorder) F43.10 ; Major depressive disorder, recurrent episode, severe F33.2 ; Anxiety F41.9 and Impacted cerumen, unspecified laterality H61.20 [facility] [id number] [place] [address] 57879- 4018 Oct, Major depressive disorder in partial remission F32.4 ; Posttraumatic stress disorder F43.10 and Anxiety F41.9 [place] [id number] [place] [address] 82108- 4252 Sep, [place] [id number] [place] [address] 62060- 4629 Sep, Anxiety F41.9 ; Major depressive disorder, recurrent episode , mild F33.0 and Posttraumatic stress disorder F43.10 [address] [id number] [place] [address] 12151- 3114 Sep, [place] [id number] [place] [address] 71990- 4040 August, [place] [address] 65517- 9672 Jul, Contact dermatitis L25.9 [facility] [id number] [place] [address] 24842- 3865 Jul, Major depressive disorder, recurrent episode, severe F33.2 ; Posttraumatic stress disorder F43.10 and Anxiety F41.9 [facility] [id number] [address]- 4281 Jul, [address] [id number] [place] [address] 01602- 6301 Jun, IBS (irritable bowel syndrome) K58.9 ; COPD (chronic obstructive pulmonary disease) J44.9 ; HTN (hypertension) I10 ; Chronic pain G89.29 ; Anxiety F41.9 ; PTSD (post-traumatic stress disorder) F43.10 ; Parkinsons G20 and Hypercholesterolemia E78.0 [place] [id number] [place] [address] 44829- 7606 Jun, [place] [id number] [place] [address] 75968- 0964 Jun, Onychocryptosis L60.0 and Onychomycosis B35.1 [place] [id number] [place] [address] 38885- 8309 May, [place] [id number] [place] [address] 82794- 3352 May, IBS (irritable bowel syndrome) K58.9 ; COPD (chronic obstructive pulmonary disease) J44.9 ; History of herniated intervertebral disc Z87.39 ; HTN (hypertension) I10 ; Anxiety F41.9 ; Depression F32.9 and Major depressive disorder in partial remission F32.4 [place] [id number] [place] [address] 48961- 7375 08 May, 2015 IBS (irritable bowel syndrome) K58.9 ; COPD (chronic obstructive pulmonary disease) J44.9 ; History of herniated intervertebral disc Z87.39 ; HTN (hypertension) I10 ; Anxiety F41.9 ; Depression F32.9 and Major depressive disorder in partial remission F32.4 [place] [address] [place] [address] 50832- 0849 May, [place] [id number] [place] [address] 63992- 1567 04 May, 2015 Anxiety F41.9 ; IBS (irritable bowel syndrome) K58.9 and Major depressive disorder in partial remission F32.4 [id number] [place] [address] 27850- 7720 18 Apr, 2015 Encounter for screening mammogram for breast cancer Z12.[address] 00098- 3660 15 Apr, [address] 53037- 4500 Apr, [address] 75725- 6880 Apr, COPD (chronic obstructive pulmonary disease) J44.9 ; HTN ( hypertension) I10 ; Chronic pain G89.29 ; Anxiety F41.9 ; PTSD (post-traumatic stress disorder) F43.10 and IBS (irritable bowel syndrome) K58.9 [id number] [place] [address] 49255- 0811 Apr, PTSD (post-traumatic stress disorder) F43.[address] 64488- 9322 Apr, Onychocryptosis L60.0 and Onychomycosis B35.[address] 05560- 5711 Apr, IBS (irritable bowel syndrome) K58.9 ; COPD (chronic obstructive pulmonary disease) J44.9 ; History of herniated intervertebral disc Z87.39 ; HTN (hypertension) I10 ; Chronic pain G89.29 ; Anxiety F41.9 ; Depression F32.9 ; Parkinsons G20 ; Hypercholesteremia E78.0 and Hemorrhoid K64.9 [address] [id number] [place] [address] 40904- 4682 Mar, [address] 92703- 9314 Mar, Major depressive disorder, recurrent episode, severe F33.2 and Posttraumatic stress disorder F43.10 [facility] [address] [place] [address]- 1342 Mar, [facility] [id number] [place] [address] 36535- 6400 Mar, [facility] [id number] [place] [address] 9768 Mar, PTSD (post-traumatic stress disorder) F43.10 [facility] [id number] [place] [address]- 9575 Mar, Onychomycosis B35.1 and Hypertension, benign I10 [facility] [id number] [place] [address] 32149- 0464 Mar, Onychomycosis B35.1 and Hypertension, benign I10 [facility] [id number] [place] [address] 87445- 0317 Feb, PTSD (post-traumatic stress disorder) F43.10 [place] [id number] [place] [address] 46349- 8974 Feb, [facility] [address] [place] [address] 18927- 7307 Feb, Major depressive disorder, recurrent episode, severe F33.2 and Posttraumatic stress disorder F43.10 [facility] [address] [place] [address] 66818- 5134 Jan, PTSD (post-traumatic stress disorder) F43.10 [facility] [address] [place] [address] 96472- 6737 Jan, Rash R21 [facility] [id number] [place] [address] 12629- 2472 14 Jan, 2015 PTSD (post-traumatic stress disorder) F43.10 [facility] [id number] [place] [address]- 2546 Jan, [facility] [address] [place] [address] 65467- 2784 Dec, Neuropathy 355.9 [facility] [id number] [place] [address] 41067- 0189 Dec, PTSD (post-traumatic stress disorder) F43.10 [facility] [id number] [place] [address] 558418- 5687 29 Dec, 2014 MDD (major depressive disorder), recurrent episode, severe 296.33 and PTSD (post-traumatic stress disorder) 309.81 [facility] [id number] [place] [address] 884559- 0854 Dec, [facility] [id number] [place] [address] 74243- 9863 Dec, Ingrown toenail 703.0 [facility] [id number] [place] [address] 18142- 3791 Dec, Posttraumatic stress disorder 309.81 [facility] [id number] [place] [address] 67850- 0942 Nov, Depressive disorder, not elsewhere classified 311 and Anxiety state, unspecified 300.00 [facility] [id number] [place] [address] 30803- 3095 Oct, Depressive disorder, not elsewhere classified 311 and Anxiety state, unspecified 300.00 [facility] [address] [place] [address] 70008- 3628 Oct, Depressive disorder, not elsewhere classified 311 ; Anxiety state, unspecified 300.00 and No condition on [place] II V71.09 [facility] [id number] [place] [address] [id number] Oct, Dental examination V72.2 [facility] [id number] [place] [address] 26287- 6396 Oct, [facility] [address] [place] [address]- 1392 August, [facility] [address] [facility] [id number] [address]- 6522 August, Seizure 780.39 and IBS (irritable bowel syndrome) 564.1 [facility] [address] [id number] [place] [address]- 1246 Jul, [facility] [address] [facility] [id number] [place] [address], [place] [address]- 2266 Jul, [facility] [address] [id number] [place] [address]- 2965 Jun, [facility] [address] [id number] [place] [address]- 2799 Jun, [facility] [id number] [place] [address]- 6374 Jun, [facility] [id number] [address]- 1119 Jun, [facility] [id number] [place] [address]- 6169 Jun, [facility] [id number] [address]- 2134 Jun, [facility] [id number] [place] [address]- 9141 Jun, [facility] [address] [facility] [id number] [address]- 4529 Jun, [facility] [address] [facility] [id number] [place] [address]- 9475 Jun, [facility] [address] [facility] [id number] [place] [address]- 8315 Jun, [facility] [address] [facility] [id number] [address]- 4606 2014 [facility] [id number] [address]- 4402 Jun, [facility] [address] [id number] [place] [address]- 8982 May, [facility] [place] [facility] [address] [id number] [place] [address]- 3896 May, [facility] [place] [facility] [address] [facility] [id number] [place] [address]- 5996 Apr, [facility] [place] [facility] [address] [id number] [place] [address]- 7047 Apr, [facility] [place] [facility] [address] [id number] [place] [address]- 7289 Mar, [facility] [place] [facility] [address] [id number] [place] [address] Mar, [facility] [address] [id number] [place] [address] Mar, [facility] [place] [facility] [address] [id number] [place] [address] Mar, [facility] [place] [facility] [address] [id number] [place] [address] Mar, [facility] [place] [facility] [address] [facility] [id number] [place] [address] Mar, [facility] [place] [facility] [address] [id number] [place] [address] Mar, [facility] [place] [facility] [address] [id number] [place] [address] Mar, [facility] [place] [facility] [address] [id number] [place] [address] Mar, [facility] [place] [facility] [address] [id number] [place] [address] Mar, [facility] [place] [facility] [address] [facility] [id number] [place] [address] Mar, [facility] [place] [facility] [address] [id number] [place] [address] Mar, [facility] [place] [facility] [address] [id number] [place] [address] [address] Mar, [facility] [place] [facility] [address] [id number] [place] [address] Mar, [facility] [place] [facility] [address] [id number] [place] [address] Mar, [facility] [place] [facility] [address] [id number] [place] [address]- [address] Mar, [facility] [place] [facility] [address] [id number] [place] [address] [address] Mar, [facility] [place] [facility] [address] [id number] [place] [address]- [address] Mar, [facility] [place] [facility] [address] [id number] [place] [address] Mar, [facility] [place] [facility] [address] [id number] [place] [address] Feb, [facility] [place] [facility] [address] [id number] [place] [address] 25 Feb, 2014 [facility] [place] [facility] [address] [id number] [place] [address] 18 Feb, 2014 [facility] [place] [facility] [address] [id number] [place] [address] 18 Feb, 2014 [facility] [place] [facility] [address] [id number] [place] [address] 17 Feb, 2014 [facility] [place] [facility] [address] [id number] [place] [address] 17 Feb, 2014 [facility] [place] [facility] [address] [id number] [place] [address] 14 Feb, 2014 [facility] [place] [facility] [address] [id number] [place] [address] Feb, [facility] [place] [facility] [address] [id number] [place] [address] Jan, [facility] [place] [facility] [address] [id number] [place] [address] Jan, [facility] [place] [facility] [address] [id number] [place] [address] Nov, [facility] [place] [facility] [address] [id number] [place] [address] Nov, [facility] [place] [facility] [address] [id number] [place] [address] Oct, [facility] [place] [facility] [address] [id number] [place] [address] 8014 Oct, [facility] [place] [facility] [address] [id number] [place] [address] 9061 Oct, [facility] [place] [facility] [address] [id number] [place] [address] 6[address] Oct, [facility] [place] [facility] [address] [id number] [place] [address] 3[address] Oct, [facility] [place] [facility] [address] [id number] [place] [address] Sep, [facility] [place] [facility] [address] [id number] [place] [address] 0998 Sep, [facility] [place] [facility] [address] [id number] [place] [address] August, [facility] [place] [facility] [address] [id number] [place] [address] 1572 August, [facility] [place] [facility] [address] [id number] [place] [address]307 Jun, [facility] [place] [facility] [address] [id number] [place] [address]- 9929 Jun, [facility] [place] [facility] [address] [id number] [place] [address] 11 Jun, 2013 [facility] [place] [facility] [address] [id number] [place] [address] 11 Jun, 2013 [facility] [place] [facility] [address] [id number] [place] [address]- [address]757 10 Jun, 2013 [facility] [place] [facility] [address] [id number] [place] [address]- [address]22 10 Jun, 2013 [facility] [place] [facility] [address] [id number] [place] [address] 2746 07 Jun, 2013 [facility] [place] [facility] [address] [id number] [place] [address] 5748 Jun, [facility] [place] [facility] [address] [id number] [place] [address] Jun, [facility] [place] [facility] [address] [id number] [place] [address]- 0685 Jun, [facility] [place] [facility] [address] [id number] [place] [address] 9000 Jun, [facility] [place] [facility] [address] [id number] [place] [address] 9109 Jun, [facility] [place] [facility] [address] [id number] [place] [address]- 8278 Jun, [facility] [place] [facility] [address] [id number] [place] [address] 7140 Jun, [facility] [place] [facility] [address] [id number] [place] [address] 7054 May, [facility] [place] [facility] [address] [id number] [place] [address]111 May, [facility] [place] [facility] [address] [id number] [place] [address] 8742 Apr, [facility] [place] [facility] [address] [id number] [place] [address] 6657 Apr, [facility] [place] [facility] [address] [id number] [place] [address] 5330 Mar, [facility] [place] [facility] [address] [id number] [place] [address] 1227 Mar, [facility] [place] [facility] [address] [id number] [place] [address] 2183 Feb, [facility] [place] [facility] [address] [id number] [place] [address] 4436 Feb, [facility] [place] [facility] [address] [id number] [place] [address] 8808 Feb, [facility] [place] [facility] [address] [id number] [place] [address]- 2477 Feb, [facility] [place] [facility] [address] [id number] [place] [address] 4255 Feb, [facility] [place] [facility] [address] [id number] [place] [address]- 8277 Feb, [facility] [place] [facility] [address] [id number] [place] [address] 8040 Feb, [facility] [place] [facility] [address] [id number] [place] [address]- 8283 Jan, [facility] [place] [facility] [address] [id number] [place] [address]- 7281 Jan, [facility] [place] [facility] [address] [id number] [place] [address] 254 Dec, [facility] [place] [facility] [address] [id number] [place] [address] 5726 Dec, [facility] [place] [facility] [address] [id number] [place] [address]- 2542 Nov, [facility] [place] [facility] [address] [id number] [place] [address] 2543 Nov, [facility] [place] [facility] [address] [id number] [place] [address] 119[address] Oct, [facility] [address] [id number] [place] [address] 5350 Sep, [facility] [place] [facility] [address] [id number] [place] [address] 2757 Sep, [facility] [place] [facility] [address] [facility] [id number] [place] [address]- 4168 August, [facility] [place] [facility] [address] [id number] [place] [address] 5653 August, [facility] [address] [id number] [place] [address]- 2717 August, [facility] [place] [facility] [address] [facility] [id number] [place] [address]- 8583 Jul, [facility] [address] [facility] [id number] [place] [address]- 9030 May, [facility] [place] [facility] [address] [facility] [id number] [place] [address] 1371 May, [facility] [address] [facility] [id number] [place] [address] 4736 Apr, [facility] [place] [facility] [address] [facility] [id number] [place] [address]- 7757 Apr, [facility] [place] [facility] [address] [facility] [id number] [place] [address]- 1159 Feb, [facility] [place] [facility] [address] [facility] [id number] [place] [address]- 5781 Feb, [facility] [place] [facility] [address] [id number] [place] [address]- 3564 Jan, [facility] [place] [facility] [address] [facility] [id number] [place] [address]- 3273 Jan, [facility] [place] [facility] [address] [facility] [id number] [place] [address]- 6194 Jan, [facility] [place] [facility] [address] [id number] [place] [address]- 6120 Nov, [facility] [place] [facility] [address] [id number] [place] [address]- 7790 Nov, [facility] [place] [facility] [address] [id number] [place] [address]- 8306 Nov, [facility] [place] [facility] [address] [id number] [place] [address]- 0484 Nov, [facility] [place] [facility] [address] [id number] [place] [address]- 1248 Nov, [facility] [place] [facility] [address] [id number] [place] [address]- 1881 Oct, [facility] [place] [facility] [address] [id number] [place] [address]- 9487 Oct, [facility] [place] [facility] [address] [id number] [place] [address]- 1364 Oct, [facility] [place] [facility] [address] [id number] [place] [address]- 7707 Oct, [facility] [place] [facility] [address] [id number] [place] [address]- 4336 Oct, [facility] [place] [facility] [address] [id number] [place] [address]- 9321 Oct, [facility] [place] [facility] [address] [id number] [place] [address]- 0005 Oct, [facility] [place] [facility] [address] [id number] [place] [address]- 6284 Sep, [facility] [place] [facility] [address] [id number] [place] [address]- 1831 Sep, [facility] [place] [facility] [address] [id number] [place] [address]- 5443 Sep, [facility] [place] [facility] [address] [id number] [place] [address]- 8102 August, [facility] [address] [id number] [place] [address]- 2000 30 Jul, 2011 [facility] [place] [facility] [address] [id number] [place] [address]- 5901 Jul, [facility] [place] [facility] [address] [id number] [place] [address]- 5433 Jul, [facility] [place] [facility] [address] [id number] [place] [address]- 2681 16 Jul, 2011 [facility] [address] [id number] [place] [address]- 3966 Jul, [facility] [place] [facility] [address] [id number] [place] [address]- 0763 Jun, [facility] [place] [facility] [address] [id number] [place] [address]- 5775 May, [facility] [place] [facility] [address] [id number] [place] [address]- 5207 Apr, [facility] [place] [facility] [address] [id number] [place] [address]- 2893 Apr, [facility] [place] [facility] [address] [id number] [place] [address]- 6103 Apr, [facility] [place] [facility] [address] [id number] [place] [address]- 9225 Apr, [facility] [place] [facility] [address] [id number] [place] [address]- 7343 Apr, [facility] [place] [facility] [address] [id number] [place] [address]- 0429 Apr, [facility] [place] [facility] [address] [id number] [place] [address]- 0388 Mar, [facility] [place] [facility] [address] [id number] [place] [address]- 9316 Mar, [facility] [place] [facility] [address] [id number] [place] [address]- 8928 08 Feb, 2011 [facility] [place] [facility] [address] [id number] [place] [address]- 0972 10 Nov, 2010 [facility] [place] [facility] [address] [id number] [place] [address]- 8457 Jun, [facility] [place] [facility] [address] [id number] [place] [address]- 4533 14 Apr, 2010 [facility] [place] [facility] [address] [id number] [place] [address]- 2169 Feb, [facility] [place] [facility] [address] [id number] [place] [address]- 4722 Jan, [facility] [place] [facility] [address] [id number] [place] [address]- 8039 Jan, [facility] [place] [facility] [address] [id number] [place] [address]- 9418 Jan, [facility] [place] [facility] [address] [id number] [place] [address]- 0454 Jan, [facility] [place] [facility] [address] [id number] [place] [address]- 2181 Nov, [facility] [place] [facility] [address] [id number] [place] [address]- 9232 Nov, [facility] [place] [facility] [address] [id number] [place] [address]- 6127 Mar, [facility] [place] [facility] [address] [id number] [place] [address]- 2148 Mar, [facility] [place] [facility] [address] [id number] [place] [address]- 9243 Feb, [facility] [place] [facility] [address] [id number] [place] [address] Feb, [facility] [place] [facility] [address] [id number] [place] [address]- 2179 Jan, [facility] [address] [facility] [id number] [place] [address]- [address]247 May, IMMUNIZATIONS No Known Immunizations SOCIAL HISTORY Never Assessed REASON FOR VISIT Medicare AWV - Initial Visit [facility]AA[facility] PLAN OF CARE Activity Details Follow Up 1 Year Reason: VITAL SIGNS Height 64 in 2017-10-16 Weight 157.7 lbs 2017-10-16 Temperature 98.3 degrees Fahrenheit 2017-10-16 Heart Rate 84 bpm 2017-10-16 Respiratory Rate 20 2017-10-16 BMI 27.07 kg/m2 2017-10-16 Blood pressure systolic 124 mmHg 2017-10-16 Blood pressure diastolic 78 mmHg 2017-10-16 MEDICATIONS Medication Instructions Dosage Frequency Start Date End Date Duration Status Lasix 80 MG Orally Once a day x1 week, then return to 20mg daily 1 tablet 20 Sep, 2017 07 days Active Lasix 20 mg Orally Once a day 1 tablet 24h August, 30 day(s) Active Chlorzoxazone 500 MG TAKE ONE (1) TABLET BY MOUTH THREE (3) TIMES DAILY 30 Not-Taking Celexa 20 mg Orally Once a day 1 tablet 24h Active Verapamil HCl ER 240 MG Orally Once a day 1 tablet 24h Active Metoprolol Succinate 50 MG Orally Once a day 1 tablet 24h Active Parafon Forte DSC 500 mg Orally Three times a day 1 tablet 8h Apr, 30 Active Gabapentin 800MG TAKE ONE TABLET BY MOUTH THREE TIMES DAILY Active Atorvastatin Calcium 10 mg Orally Once a day 1 tablet 24h Apr, 30 day(s) Active Potassimin 20 meq Orally 2 times a day 1 tablet 12h Active RESULTS No Results PROCEDURES Procedure Date Ordered Result Body Site [facility] VISIT IPPE/AWV October 16, 2017 ANNUAL ROBERTO VST; [facility] PPS INIT October 16, 2017 PT TOBACCO SCREEN RCVD TLK October 16, 2017 FALL RISK ASSESSMENT DOCD October 16, 2017 LAB NOT BILLED BY [facility] October 16, 2017 INSTRUCTIONS MEDICATIONS ADMINISTERED No Known Medications [...]
--- OUTSIDE RECORDS SUMMARY | 2018-03-25 15:04 | XMS REPORT ---
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 Name Role Phone NAYA JACKSON Unavailable PROBLEMS Type Condition ICD9-CM Code UFO17-EC Code Onset Dates Condition Status SNOMED Code Problem Hypertriglyceridemia E78.1 Active 900759827 Problem Other chronic pain G89.29 Active 67896843 Problem Cervical disc disease M50.90 Active 051973816 Problem Major depressive disorder, single episode, mild F32.0 Active 20350179 Problem Irritable bowel syndrome with diarrhea K58.0 Active 967017769 Problem Paresthesia of bilateral legs R20.2 Active 558229699 Problem Ulcerative pancolitis without complication K51.00 Active 928011712 Problem Abnormal mammogram R92.8 Active 588545084 Problem Polyneuropathy G62.9 Active 86041536 Problem PTSD (post-traumatic stress disorder) F43.10 Active 99621554 Problem Major depressive disorder, recurrent episode, severe F33.2 Active 592448593931 Problem HTN (hypertension) I10 Active 77897369 Problem Depression F32.9 Active 04736763 Problem Parkinsons G20 Active 44641424 Problem Anxiety F41.9 Active 65578212 Problem COPD (chronic obstructive pulmonary disease) J44.9 Active 61610087 Problem Annular psoriasis L40.8 Active 394416957 ALLERGIES Substance Reaction Event Type Date Status Latex Unknown Drug Allergy Sep, Active Budesonide rash/swelling Drug Allergy Sep, Active ENCOUNTERS Encounter Location Date Diagnosis [facility] [id number], [place] [address] Nov, Irritable bowel syndrome with diarrhea K58.0 and Alopecia L65.9 [facility] [id number], [place] [address] Oct, Chronic diarrhea K52.9 and Acute colitis K52.9 [facility] [address], [place] [address] Oct, Chronic diarrhea K52.9 [facility] [id number] [place] [address] 87946- 9445 Oct, Chronic diarrhea K52.9 and Edema of both legs R60.0 [facility] [id number] [place] [address] 19081- 0278 Sep, Medicare annual wellness visit, initial Z00.00 ; Parkinsons G20 ; COPD (chronic obstructive pulmonary disease) J44.9 ; Major depressive disorder, single episode, mild F32.0 ; HTN (hypertension) I10 ; Hypokalemia E87.6 and Adverse effect of carbonic-anhydrase inhibitors, benzothiadiazides and other diuretics, initial encounter T50.2X5A [facility] [id number] [place] [address] 30247- 7899 Sep, Localized edema R60.0 [facility] [id number] [place] [address] 13803- 8802 Sep, [facility] [id number] [place] [address] 42541- 7115 Sep, Major depressive disorder, single episode, mild F32.0 ; PTSD (post-traumatic stress disorder) F43.10 and Edema of both legs R60.0 [facility] [address], [place] [address] August, Localized edema R60.0 [facility] [id number] [place] [address] 38745- 9276 August, Localized edema R60.0 ; Weight gain R63.5 and Irritable bowel syndrome with diarrhea K58.0 [facility] [id number] [place] [address] 77175- 4156 Jul, [facility] [id number] [place] [address] 06884- 1290 Jul, Elevated liver enzymes R74.8 [facility] [id number] [place] [address] 36436- 5658 Jul, Polyneuropathy G62.9 [facility] [id number] [place] [address] 02294- 6314 Jul, [facility] [id number] [place] [address] 13602- 9026 Jul, Cervical disc disease M50.90 [facility] [id number] [place] [address] 66458- 1956 Jul, Elevated liver enzymes R74.8 [facility] [id number] [place] [address] 78138- 7330 Jul, Polyneuropathy G62.9 ; Ulcerative pancolitis without complication K51.00 ; Depression F32.9 ; Leg weakness, bilateral R29.898 and Paresthesia of bilateral legs R20.2 [facility] [id number] [place] [address] 61226- 4159 Jul, Polyneuropathy G62.9 ; Ulcerative pancolitis without complication K51.00 ; Depression F32.9 ; Leg weakness, bilateral R29.898 and Paresthesia of bilateral legs R20.2 [facility] [id number] [place] [address] 01602- 1487 Jun, [facility] [id number] [place] [address] 74451- 7740 Jun, Fibrous breast lumps N63.0 [facility] [id number] [place] [address] 95635- 9627 Jun, Ulcerative pancolitis without complication K51.00 [facility] [id number] [place] [address] 51677- 1383 Jun, Abnormal mammogram R92.8 [facility] [id number] [place] [address] 77242- 0744 Jun, Breast density R92.2 [facility] [id number], [place] [address]- 4629 Jun, [facility] [id number] [place] [address] 42646- 0381 Jun, PTSD (post-traumatic stress disorder) F43.10 [facility] [id number] [place] [address] 78869- 0922 May, [facility] [address] 83203- 2364 May, Breast cancer screening Z12.31 and Fibrous breast lumps N63.0 [facility] [id number] [place] [address] 03885- 4800 Apr, Ulcerative pancolitis without complication K51.00 [facility] [id number] [place] [address] 52755- 5863 Apr, [facility] [id number] [place] [address] 61942- 8515 Apr, Ulcerative pancolitis without complication K51.00 ; Low back pain M54.5 and Other chronic pain G89.29 [facility] [id number] [place] [address] 00381- 8927 Dec, Cervical disc disease M50.90 and HTN (hypertension) I10 [facility] [id number] [place] [address] 91300- 5538 05 Dec, 2016 Moderate episode of recurrent major depressive disorder F33.1 and PTSD (post-traumatic stress disorder) F43.10 [facility] [address] [place] [address] 45707- 7391 Oct, [facility] [id number] [place] [address] 54590- 6951 Oct, Irritable bowel syndrome with diarrhea K58.0 [facility] [address] [place] [address] 80461- 2626 Oct, Irritable bowel syndrome with diarrhea K58.0 [facility] [address], [place] [address] 9132 Sep, Diarrhea, unspecified type R19.7 ; Chronic pain G89.29 ; Hypertriglyceridemia E78.1 ; PTSD (post-traumatic stress disorder) F43.10 ; History of herniated intervertebral disc Z87.39 and Depression F32.9 [facility] [id number] [place] [address] 45216- 1101 August, Moderate episode of recurrent major depressive disorder F33.1 and PTSD (post-traumatic stress disorder) F43.10 [facility] [id number] [place] [address] 24429- 8327 August, [facility] [id number] [place] [address] 26105- 7439 Jul, [facility] [id number] [place] [address] 62574- 2895 Jul, PTSD (post-traumatic stress disorder) F43.10 ; IBS ( irritable bowel syndrome) K58.9 ; HTN (hypertension) I10 ; Hypertriglyceridemia E78.1 ; Chronic pain G89.29 ; Anxiety F41.9 ; Depression F32.9 ; COPD (chronic obstructive pulmonary disease) J44.9 ; Irritable bowel syndrome with diarrhea K58.0 and Second degree hemorrhoids K64.1 [facility] [id number] [place] [address] 77672- 9999 Jul, PTSD (post-traumatic stress disorder) F43.10 [facility] [id number] [place] [address] 17642- 6229 Jul, [facility] [id number] [place] [address] 17502- 8627 Jun, [facility] [id number] [place] [address] 76634- 1522 Jun, HTN (hypertension) I10 [facility] [id number] [place] [address] 45986- 6450 May, Depression F32.9 ; Post traumatic stress disorder F43.10 and Screening mammogram, encounter for Z12.31 [facility] [id number] [place] [address] 74649- 3116 May, [address] [facility] 88451- 2375 09 May, 2016 PTSD (post-traumatic stress disorder) F43.10 and Major depressive disorder in partial remission F32.4 [address] [facility] [address] 45585- 7661 02 May, 2016 PTSD (post-traumatic stress disorder) F43.10 ; IBS ( irritable bowel syndrome) K58.9 ; History of herniated intervertebral disc Z87.39 ; Anxiety F41.9 ; Depression F32.9 ; Hypertriglyceridemia E78.1 ; Eczema of both hands L30.9 ; HTN (hypertension) I10 and COPD (chronic obstructive pulmonary disease) J44.9 [address] [address] 33538- 6764 Apr, Major depressive disorder in partial remission F32.4 and PTSD (post-traumatic stress disorder) F43.10 [id number] [place] [address] 23273- 3255 Apr, PTSD (post-traumatic stress disorder) F43.10 [facility] [id number] [place] [address] 84411- 3592 Mar, IBS (irritable bowel syndrome) K58.9 ; PTSD (post-traumatic stress disorder) F43.10 ; COPD (chronic obstructive pulmonary disease) J44.9 ; History of herniated intervertebral disc Z87.39 ; HTN (hypertension) I10 ; Parkinsons G20 ; Annular psoriasis L40.8 and Hypertriglyceridemia E78.1 [address] [id number] [place] [address] 74510- 8519 Feb, [place] [id number] [place] [address] 78546- 4447 15 Nov, 2016 Moderate episode of recurrent major depressive disorder F33.1 and PTSD (post-traumatic stress disorder) F43.10 [place] [facility] [id number] [place] [address] 58510- 4405 07 Jan, 2016 Onychocryptosis L60.0 [facility] [id number] [place] [address] 86018- 4774 30 Dec, 2015 [address] [facility] [address] 97496- 6453 Dec, Dizziness R42 ; PTSD (post-traumatic stress disorder) F43.10 ; Posttraumatic stress disorder F43.10 ; IBS (irritable bowel syndrome) K58.9 ; History of herniated intervertebral disc Z87.39 ; HTN (hypertension) I10 ; Chronic pain G89.29 and Hypercholesterolemia E78.0 [address] [address] 90006- 1876 Dec, [address] [address] 79611- 4264 Dec, [facility] [address] 65003 -9896 Dec, Annular psoriasis L40.8 [address] [facility] [address] 34666- 5652 Nov, [address] [address] 63497- 8529 Nov, [address] [facility] [address] 29197- 9903 Nov, HTN (hypertension) I10 ; Chronic pain G89.29 ; Annular psoriasis L40.8 ; IBS (irritable bowel syndrome) K58.9 and Vision changes H53.9 [facility] [address] 29895- 9559 Oct, [facility] [address] 50163- 8628 Oct, IBS (irritable bowel syndrome) K58.9 ; PTSD (post-traumatic stress disorder) F43.10 ; HTN (hypertension) I10 ; Depression F32.9 ; History of herniated intervertebral disc Z87.39 ; Anxiety F41.9 ; Chronic pain G89.29 and Hypercholesterolemia E78.0 [facility] [place] [address] [place] [address] 20429- 8910 Oct, Major depressive disorder in partial remission F32.4 and PTSD (post-traumatic stress disorder) F43.10 [facility] [id number] [place] [address] 38839- 7314 Oct, IBS (irritable bowel syndrome) K58.9 ; PTSD (post-traumatic stress disorder) F43.10 ; Major depressive disorder, recurrent episode, severe F33.2 ; Anxiety F41.9 and Impacted cerumen, unspecified laterality H61.20 [facility] [id number] [place] [address] 33464- 6998 Oct, Major depressive disorder in partial remission F32.4 ; Posttraumatic stress disorder F43.10 and Anxiety F41.9 [facility] [id number] [place] [address] 26812- 1959 Sep, [facility] [id number] [place] [address] 93843- 7877 Sep, Anxiety F41.9 ; Major depressive disorder, recurrent episode , mild F33.0 and Posttraumatic stress disorder F43.10 [facility] [id number] [place] [address] 13326- 9372 Sep, [facility] [id number] [place] [address] 81124- 2570 August, [facility] [address] 12481- 2202 Jul, Contact dermatitis L25.9 [facility] [id number] [place] [address] 13993- 0173 Jul, Major depressive disorder, recurrent episode, severe F33.2 ; Posttraumatic stress disorder F43.10 and Anxiety F41.9 [facility] [address] [address]- 1812 Jul, [facility] [id number] [place] [address] 13216- 1263 Jun, IBS (irritable bowel syndrome) K58.9 ; COPD (chronic obstructive pulmonary disease) J44.9 ; HTN (hypertension) I10 ; Chronic pain G89.29 ; Anxiety F41.9 ; PTSD (post-traumatic stress disorder) F43.10 ; Parkinsons G20 and Hypercholesterolemia E78.0 [facility] [id number] [place] [address] 42889- 7243 Jun, [facility] [id number] [place] [address] 99396- 8091 Jun, Onychocryptosis L60.0 and Onychomycosis B35.1 [facility] [id number] [place] [address] 46273- 8545 May, [facility] [id number] [place] [address] 12150- 1608 May, IBS (irritable bowel syndrome) K58.9 ; COPD (chronic obstructive pulmonary disease) J44.9 ; History of herniated intervertebral disc Z87.39 ; HTN (hypertension) I10 ; Anxiety F41.9 ; Depression F32.9 and Major depressive disorder in partial remission F32.4 [facility] [place] [id number] [place] [address] 95199- 9583 08 May, 2015 IBS (irritable bowel syndrome) K58.9 ; COPD (chronic obstructive pulmonary disease) J44.9 ; History of herniated intervertebral disc Z87.39 ; HTN (hypertension) I10 ; Anxiety F41.9 ; Depression F32.9 and Major depressive disorder in partial remission F32.4 [address] [address] [place] [address] 53635- 1194 May, [facility] [id number] [place] [address] 42542- 5847 04 May, 2015 Anxiety F41.9 ; IBS (irritable bowel syndrome) K58.9 and Major depressive disorder in partial remission F32.4 [address] [id number] [place] [address] 57963- 2550 18 Apr, 2015 Encounter for screening mammogram for breast cancer Z12.[address] 89257- 6553 15 Apr, [address] 75090- 2801 Apr, [address] 56115- 4284 Apr, COPD (chronic obstructive pulmonary disease) J44.9 ; HTN ( hypertension) I10 ; Chronic pain G89.29 ; Anxiety F41.9 ; PTSD (post-traumatic stress disorder) F43.10 and IBS (irritable bowel syndrome) K58.9 [id number] [place] [address] 07303- 5433 Apr, PTSD (post-traumatic stress disorder) F43.[address] 69009- 5338 Apr, Onychocryptosis L60.0 and Onychomycosis B35.[address] 36286- 5918 Apr, IBS (irritable bowel syndrome) K58.9 ; COPD (chronic obstructive pulmonary disease) J44.9 ; History of herniated intervertebral disc Z87.39 ; HTN (hypertension) I10 ; Chronic pain G89.29 ; Anxiety F41.9 ; Depression F32.9 ; Parkinsons G20 ; Hypercholesteremia E78.0 and Hemorrhoid K64.9 [id number] [place] [address] 11352- 7923 Mar, [address] 31684- 4139 Mar, Major depressive disorder, recurrent episode, severe F33.2 and Posttraumatic stress disorder F43.10 [facility] [address] [place] [address]- 9067 Mar, [facility] [id number] [place] [address] 16877- 6289 Mar, [facility] [id number] [place] 3940 Mar, PTSD (post-traumatic stress disorder) F43.10 [facility] [id number] [place] 3146 Mar, Onychomycosis B35.1 and Hypertension, benign I10 [facility] [id number] [place] [address] 93296- 9636 Mar, Onychomycosis B35.1 and Hypertension, benign I10 [facility] [id number] [place] [address] 68952- 3601 Feb, PTSD (post-traumatic stress disorder) F43.10 [facility] [id number] [place] [address] 19644- 6677 Feb, [facility] [address] [place] [address] 13299- 9670 Feb, Major depressive disorder, recurrent episode, severe F33.2 and Posttraumatic stress disorder F43.10 [facility] [address] [place] [address] 07039- 0246 Jan, PTSD (post-traumatic stress disorder) F43.10 [facility] [address] [place] [address] 77826- 4446 Jan, Rash R21 [facility] [id number] [place] [address] 55661- 8529 14 Jan, 2015 PTSD (post-traumatic stress disorder) F43.10 [facility] [id number] [place] [address]- 2546 Jan, [facility] [address] [place] [address] 73785- 2482 Dec, Neuropathy 355.9 [facility] [id number] [place] [address] 73541- 4232 Dec, PTSD (post-traumatic stress disorder) F43.10 [facility] [id number] [place] [address] 458184- 8145 29 Dec, 2014 MDD (major depressive disorder), recurrent episode, severe 296.33 and PTSD (post-traumatic stress disorder) 309.81 [facility] [id number] [place] [address] 942837- 9207 Dec, [facility] [id number] [place] [address] 55152- 4116 Dec, Ingrown toenail 703.0 [facility] [id number] [place] [address] 77883- 5715 Dec, Posttraumatic stress disorder 309.81 [facility] [id number] [place] [address] 19026- 6892 Nov, Depressive disorder, not elsewhere classified 311 and Anxiety state, unspecified 300.00 [facility] [id number] [place] [address] 62651- 0483 Oct, Depressive disorder, not elsewhere classified 311 and Anxiety state, unspecified 300.00 [facility] [address] [place] [address] 29662- 5987 Oct, Depressive disorder, not elsewhere classified 311 ; Anxiety state, unspecified 300.00 and No condition on [place] II V71.09 [facility] [id number] [place] [address] [id number] Oct, Dental examination V72.2 [facility] [id number] [place] [address] 28652- 3405 Oct, [facility] [address] [place] [address]- 8012 August, [facility] [address] [facility] [id number] [address]- 2323 August, Seizure 780.39 and IBS (irritable bowel syndrome) 564.1 [facility] [address] [id number] [place] [address]- 9206 Jul, [facility] [address] [facility] [id number] [place] [address], [place] [address]- 2346 Jul, [facility] [address] [id number] [place] [address]- 1749 Jun, [facility] [address] [id number] [place] [address]- 0686 Jun, [facility] [id number] [address]- 9155 Jun, [facility] [id number] [address]- 4656 Jun, [facility] [id number] [address]- 7480 Jun, [facility] [id number] [address]- 6064 Jun, [facility] [id number] [address]- 3150 Jun, [facility] [address] [facility] [id number], [place] [address]- 8496 Jun, [facility] [address] [facility] [id number] [place] [address]- 3072 Jun, [facility] [address] [facility] [id number] [place] [address]- 0090 Jun, [facility] [address] [facility] [id number], [place] [address]- 8076 2014 [facility] [id number] [address]- 5641 Jun, [facility] [address] [id number] [place] [address]- 6945 May, [facility] [place] [facility] [address] [id number] [place] [address] May, [facility] [place] [facility] [address] [facility] [id number] [place] [address] Apr, [facility] [place] [facility] [address] [id number] [place] [address] Apr, [facility] [place] [facility] [address] [id number] [place] [address] Mar, [facility] [place] [facility] [address] [id number] [place] [address] Mar, [facility] [address] [id number] [place] [address] Mar, [facility] [place] [facility] [address] [id number] [place] [address] Mar, [facility] [place] [facility] [address] [id number] [place] [address] Mar, [facility] [place] [facility] [address] [facility] [id number] [place] [address] Mar, [facility] [place] [facility] [address] [id number] [place] [address] Mar, [facility] [place] [facility] [address] [id number] [place] [address] Mar, [facility] [place] [facility] [address] [id number] [place] [address] Mar, [facility] [place] [facility] [address] [id number] [place] [address] Mar, [facility] [place] [facility] [address] [facility] [id number] [place] [address] Mar, [facility] [place] [facility] [address] [id number] [place] [address] Mar, [facility] [place] [facility] [address] [id number] [place] [address] Mar, [facility] [place] [facility] [address] [id number] [place] [address]- [address] Mar, [facility] [place] [facility] [address] [id number] [place] [address]- [address] Mar, [facility] [place] [facility] [address] [id number] [place] [address]- [address] Mar, [facility] [place] [facility] [address] [id number] [place] [address] Mar, [facility] [place] [facility] [address] [id number] [place] [address] Mar, [facility] [place] [facility] [address] [id number] [place] [address] Mar, [facility] [place] [facility] [address] [id number] [place] [address] Feb, [facility] [place] [facility] [address] [id number] [place] [address] 25 Feb, 2014 [facility] [place] [facility] [address] [id number] [place] [address] 18 Feb, 2014 [facility] [place] [facility] [address] [id number] [place] [address] 18 Feb, 2014 [facility] [facility] [address] [id number] [place] [address] 17 Feb, 2014 [facility] [place] [facility] [address] [id number] [place] [address] 17 Feb, 2014 [facility] [place] [facility] [address] [id number] [place] [address] 32[address] 14 Feb, 2014 [facility] [place] [facility] [address] [id number] [place] [address] Feb, [facility] [place] [facility] [address] [id number] [place] [address] Jan, [facility] [place] [facility] [address] [id number] [place] [address] 1248 Jan, [facility] [place] [facility] [address] [id number] [place] [address] 49[address] Nov, [facility] [place] [facility] [address] [id number] [place] [address] 4039 Nov, [facility] [place] [facility] [address] [id number] [place] [address] 2916 Oct, [facility] [place] [facility] [address] [id number] [place] [address] 32[address] Oct, [facility] [place] [facility] [address] [id number] [place] [address] Oct, [facility] [place] [facility] [address] [id number] [place] [address] 4825 Oct, [facility] [place] [facility] [address] [id number] [place] [address] 3481 Oct, [facility] [place] [facility] [address] [id number] [place] [address]- 1769 Sep, [facility] [place] [facility] [address] [id number] [place] [address] 48[address] Sep, [facility] [place] [facility] [address] [id number] [place] [address]- 9[address] August, [facility] [place] [facility] [address] [id number] [place] [address] August, [facility] [place] [facility] [address] [id number] [place] [address] 4[address] Jun, [facility] [place] [facility] [address] [id number] [place] [address]- 3533 Jun, [facility] [place] [facility] [address] [id number] [place] [address]- [address] 11 Jun, 2013 [facility] [place] [facility] [address] [id number] [place] [address]- 7106 11 Jun, 2013 [facility] [place] [facility] [address] [id number] [place] [address]- 6925 10 Jun, 2013 [facility] [place] [facility] [address] [id number] [place] [address]- 8233 10 Jun, 2013 [facility] [place] [facility] [address] [id number] [place] [address]- 5527 07 Jun, 2013 [facility] [place] [facility] [address] [id number] [place] [address] 3940 Jun, [facility] [place] [facility] [address] [id number] [place] [address]- 5106 Jun, [facility] [place] [facility] [address] [id number] [place] [address]- 5592 Jun, [facility] [place] [facility] [address] [id number] [place] [address]- 5656 Jun, [facility] [place] [address] [id number] [place] [address]- 6580 Jun, [facility] [place] [facility] [address] [id number] [place] [address]- 6728 Jun, [facility] [place] [facility] [address] [id number] [place] [address] 1880 Jun, [facility] [place] [facility] [address] [id number] [place] [address] 5049 May, [facility] [address] [id number] [place] [address] 3523 May, [facility] [place] [facility] [address] [id number] [place] [address] 3893 Apr, [facility] [address] [id number] [place] [address]- 6567 Apr, [facility] [address] [id number] [place] [address] 7501 Mar, [facility] [place] [facility] [address] [id number] [place] [address] 8[address] Mar, [facility] [place] [facility] [address] [id number] [place] [address] 6226 Feb, [facility] [facility] [address] [id number] [place] [address]- 0088 Feb, [facility] [place] [facility] [address] [id number] [place] [address]- 2013 Feb, [facility] [place] [facility] [address] [id number] [place] [address]- 2578 Feb, [facility] [address] [id number] [place] [address]- 2435 Feb, [facility] [address] [id number] [place] [address]- 2161 Feb, [facility] [address] [id number] [place] [address]- 2808 Feb, [facility] [address] [id number] [place] [address]- 7191 Jan, [facility] [address] [id number] [place] [address]- 9841 Jan, [facility] [address] [id number], [place] [address] 2544 Dec, [facility] [address] [id number] [place] [address]- 1110 Dec, [facility] [address] [id number] [place] [address]- 2549 Nov, [facility] [address] [id number], [place] [address]- 2540 Nov, [facility] [address] [id number], [place] [address] 9527 Oct, [facility] [address] [id number] [place] [address]- 5911 Sep, [facility] [address] [id number], [place] [address] 8261 Sep, [facility] [address] [facility] [id number] [place] [address]- 7706 August, [facility] [address] [id number], [place] [address] 2135 August, [facility] [address] [id number] [place] [address]- 1182 August, [facility] [address] [facility] [id number] [place] [address] 1934 Jul, [facility] [address] [facility] [id number], [place] [address]- [address]753 May, [facility] [address] [facility] [id number], [place] [address] 4235 May, [facility] [address] [facility] [id number], [place] [address]- 0385 Apr, [facility] [address] [facility] [id number], [place] [address]- 4987 Apr, [facility] [address] [facility] [id number], [place] [address]- 0283 Feb, [facility] [address] [facility] [id number], [place] [address] 7911 Feb, [facility] [address] [id number], [place] [address]- 9436 Jan, [facility] [address] [facility] [id number], [place] [address]- 3882 Jan, [facility] [address] [facility] [id number], [place] [address]- 3745 Jan, [facility] [address] [id number] [place] [address]- 3861 Nov, [facility] [address] [id number] [place] [address]- 8250 Nov, [facility] [address] [id number] [place] [address]- 4506 Nov, [facility] [address] [id number] [place] [address]- 1840 Nov, [facility] [address] [id number] [place] [address]- 7894 Nov, [facility] [address] [id number] [place] [address]- 8455 Oct, [facility] [address] [id number] [place] [address]- 1611 Oct, [facility] [address] [id number] [place] [address]- 0003 Oct, [facility] [address] [id number] [place] [address]- 1713 Oct, [facility] [address] [id number] [place] [address]- 9538 Oct, [facility] [address] [id number] [place] [address]- 7846 Oct, [facility] [address] [id number] [place] [address]- 1439 Oct, [facility] [address] [id number] [place] [address]- 8928 Sep, [facility] [address] [id number] [place] [address]- 8008 Sep, [facility] [address] [id number] [place] [address]- 7252 Sep, [facility] [address] [id number] [place] [address] 8952 August, [facility] [address] [id number] [place] [address]- 2382 30 Jul, 2011 [facility] [address] [id number] [place] [address]- 3847 Jul, [facility] [address] [id number] [place] [address]- 6229 Jul, [facility] [address] [id number] [place] [address]- 4886 16 Jul, 2011 [facility] [address] [id number] [place] [address]- 4995 Jul, [facility] [address] [id number] [place] [address]- 6802 Jun, [facility] [address] [id number] [place] [address]- 1121 May, [facility] [address] [id number] [place] [address]- 0879 Apr, [facility] [address] [id number] [place] [address]- 7810 Apr, [facility] [address] [id number] [place] [address]- 4510 Apr, [facility] [address] [id number] [place] [address]- 4220 Apr, [facility] [address] [id number], [place] [address]- 6986 Apr, [facility] [address] [id number] [place] [address]- 0296 Apr, [facility] [address] [id number] [place] [address]- 7498 Mar, [facility] [address] [id number] [place] [address]- 8436 Mar, [facility] [address] [id number] [place] [address]- 5860 08 Feb, 2011 [facility] [address] [id number] [place] [address]- 7853 10 Nov, 2010 [facility] [address] [id number] [place] [address]- 8511 Jun, [facility] [address] [id number] [place] [address]- 0472 14 Apr, 2010 [facility] [address] [id number] [place] [address]- 2198 Feb, [facility] [address] [id number] [place] [address]- 8223 Jan, [facility] [address] [id number] [place] [address]- 7142 Jan, [facility] [address] [id number] [place] [address]- 4894 Jan, [facility] [address] [id number] [place] [address]- 1888 Jan, [facility] [address] [id number] [place] [address]- 6969 Nov, [facility] [address] [id number] [place] [address]- 5800 Nov, [facility] [address] [id number] [place] [address]- 0998 Mar, [facility] [address] [id number] [place] [address]- 9416 Mar, [facility] [address] [id number] [place] [address]- 9610 Feb, [facility] [address] [id number] [place] [address] Feb, [facility] [address] [id number] [place] [address]- 4527 Jan, [facility] [address] [facility] [id number] [place] [address]- [address]554 10 May, 2008 IMMUNIZATIONS No Known Immunizations SOCIAL HISTORY Never Assessed REASON FOR VISIT f/u for swelling in the legs and feet. Swelling for 6 weeks sohail-Shirin ISABEL PLAN OF CARE VITAL SIGNS Height 64 in 2017-09-30 Weight 163.7 lbs 2017-09-30 Temperature 98.3 degrees Fahrenheit 2017-09-30 Heart Rate 84 bpm 2017-09-30 Respiratory Rate 20 2017-09-30 BMI 28.10 kg/m2 2017-09-30 Blood pressure systolic 128 mmHg 2017-09-30 Blood pressure diastolic 78 mmHg 2017-09-30 MEDICATIONS Medication Instructions Dosage Frequency Start Date End Date Duration Status Potassimin 500 Orally 2 times a day 1 tablet 12h Active Parafon Forte DSC 500 mg Orally Three times a day 1 tablet 8h Apr, 30 Active Gabapentin 800MG TAKE ONE TABLET BY MOUTH THREE TIMES DAILY Active Verapamil HCl ER 240 MG Orally Once a day 1 tablet 24h Active Celexa 20 mg Orally Once a day 1 tablet 24h Active Lasix 20 mg Orally Once a day 1 tablet 24h August, 30 day(s) Active Metoprolol Succinate 50 MG Orally Once a day 1 tablet 24h Active Atorvastatin Calcium 10 mg Orally Once a day 1 tablet 24h Apr, 30 day(s) Active RESULTS No Results PROCEDURES Procedure Date Ordered Result Body Site [facility] VISIT ESTABLISHED PATIENT September 30, 2017 INSTRUCTIONS MEDICATIONS ADMINISTERED No Known Medications [...]
--- OUTSIDE RECORDS SUMMARY | 2018-03-25 15:04 | XMS REPORT ---
Author Author NAYA JACKSON Organization [facility] Address [address] [place] [address] Care Team Providers Care Supervisor [employer] Name Role Phone NAYA JACKSON Unavailable PROBLEMS Type Condition ICD9-CM Code [id number] Code Onset Dates Condition Status SNOMED Code Problem Hypertriglyceridemia E78.1 Active 775305603 Problem Other chronic pain G89.29 Active 37304235 Problem Cervical disc disease M50.90 Active 183751047 Problem Major depressive disorder, single episode, mild F32.0 Active 07471233 Problem Irritable bowel syndrome with diarrhea K58.0 Active 462250627 Problem Paresthesia of bilateral legs R20.2 Active 040950404 Problem Ulcerative pancolitis without complication K51.00 Active 621404349 Problem Abnormal mammogram R92.8 Active 996458051 Problem Polyneuropathy G62.9 Active 13215391 Problem PTSD (post-traumatic stress disorder) F43.10 Active 09028908 Problem Major depressive disorder, recurrent episode, severe F33.2 Active 711714375514 Problem HTN (hypertension) I10 Active 18971190 Problem Depression F32.9 Active 52863351 Problem Parkinsons G20 Active 80802889 Problem Anxiety F41.9 Active 65061497 Problem COPD (chronic obstructive pulmonary disease) J44.9 Active 95049637 Problem Annular psoriasis L40.8 Active 976819954 ALLERGIES No Information ENCOUNTERS Encounter Location Date Diagnosis [facility] [id number] [address] Nov, Irritable bowel syndrome with diarrhea K58.0 and Alopecia L65.9 [facility] [address] [address] Oct, Chronic diarrhea K52.9 and Acute colitis K52.9 [facility] [id number] [place] [address] 77353- 1614 Oct, Chronic diarrhea K52.9 [address] [place] [id number] [place] [address] 80864- 4428 Oct, Chronic diarrhea K52.9 and Edema of both legs R60.0 [facility] [id number] [place] [address] 26765- 7820 Sep, Medicare annual wellness visit, initial Z00.00 ; Parkinsons G20 ; COPD (chronic obstructive pulmonary disease) J44.9 ; Major depressive disorder, single episode, mild F32.0 ; HTN (hypertension) I10 ; Hypokalemia E87.6 and Adverse effect of carbonic-anhydrase inhibitors, benzothiadiazides and other diuretics, initial encounter T50.2X5A [place] [id number] [place] [address] 28890- 5900 Sep, Localized edema R60.0 [facility] [place] [id number] [place] [address] 29511- 8081 Sep, [place] [id number] [place] [address] 88806- 4503 Sep, Major depressive disorder, single episode, mild F32.0 ; PTSD (post-traumatic stress disorder) F43.10 and Edema of both legs R60.0 [place] [id number] [place] [address] 77740- 9255 August, Localized edema R60.0 [facility] [place] [id number] [place] [address] 17760- 3160 August, Localized edema R60.0 ; Weight gain R63.5 and Irritable bowel syndrome with diarrhea K58.0 [facility] [place] [id number] [place] [address] 38685- 5154 Jul, [place] [id number] [place] [address] 56515- 6152 Jul, Elevated liver enzymes R74.8 [id number] [place] [address] 88295- 7845 Jul, Polyneuropathy G62.9 [facility] [address] [address] 58[address] Jul, [facility] [id number] [place] [address] 85771- 3276 Jul, Cervical disc disease M50.90 [facility] [id number] [place] [address] 92349- 4126 Jul, Elevated liver enzymes R74.8 [facility] [place] [id number] [place] [address] 38328- 6006 Jul, Polyneuropathy G62.9 ; Ulcerative pancolitis without complication K51.00 ; Depression F32.9 ; Leg weakness, bilateral R29.898 and Paresthesia of bilateral legs R20.2 [place] [id number] [place] [address] 19505- 3482 Jul, Polyneuropathy G62.9 ; Ulcerative pancolitis without complication K51.00 ; Depression F32.9 ; Leg weakness, bilateral R29.898 and Paresthesia of bilateral legs R20.2 [place] [id number] [place] [address] 60962- 0063 Jun, [place] [id number] [place] [address] 57865- 9981 Jun, Fibrous breast lumps N63.0 [place] [id number] [place] [address] 12743- 1067 Jun, Ulcerative pancolitis without complication K51.00 [place] [id number] [place] [address] 08363- 6220 Jun, Abnormal mammogram R92.8 [place] [id number] [place] [address] 36384- 5183 Jun, Breast density R92.2 [address] [id number] [place] [address] 28799- 1813 Jun, [place] [id number] [place] [address] 44741- 5233 Jun, PTSD (post-traumatic stress disorder) F43.10 [place] [id number] [place] [address] 19590- 9481 May, [place] [id number] [place] [address] 38968- 3755 May, Breast cancer screening Z12.31 and Fibrous breast lumps N63.0 [place] [id number] [place] [address] 60186- 2387 Apr, Ulcerative pancolitis without complication K51.00 [place] [id number] [place] [address] 73926- 2436 Apr, [place] [id number] [place] [address] 58105- 2178 Apr, Ulcerative pancolitis without complication K51.00 ; Low back pain M54.5 and Other chronic pain G89.29 [place] [id number] [place] [address] 79289- 8881 28 Dec, 2016 Cervical disc disease M50.90 and HTN (hypertension) I10 [place] [id number] [place] [address] 31956- 3911 05 Dec, 2016 Moderate episode of recurrent major depressive disorder F33.1 and PTSD (post-traumatic stress disorder) F43.10 [place] [address] [place] [address] 55217- 5664 Oct, [place] [id number] [place] [address] 97065- 5554 Oct, Irritable bowel syndrome with diarrhea K58.0 [place] [id number] [place] [address] 82749- 7653 07 Oct, 2016 Irritable bowel syndrome with diarrhea K58.0 [place] [id number] [place] [address] 71267- 7555 Sep, Diarrhea, unspecified type R19.7 ; Chronic pain G89.29 ; Hypertriglyceridemia E78.1 ; PTSD (post-traumatic stress disorder) F43.10 ; History of herniated intervertebral disc Z87.39 and Depression F32.9 [facility] [id number] [place] [address] 35195- 7106 August, Moderate episode of recurrent major depressive disorder F33.1 and PTSD (post-traumatic stress disorder) F43.10 [place] [id number] [place] [address] 85175- 0142 August, [place] 94884- 1205 Jul, [place] [id number] [place] [address] 09610- 0304 Jul, PTSD (post-traumatic stress disorder) F43.10 ; IBS ( irritable bowel syndrome) K58.9 ; HTN (hypertension) I10 ; Hypertriglyceridemia E78.1 ; Chronic pain G89.29 ; Anxiety F41.9 ; Depression F32.9 ; COPD (chronic obstructive pulmonary disease) J44.9 ; Irritable bowel syndrome with diarrhea K58.0 and Second degree hemorrhoids K64.1 [place] [id number] [place] [address] 86999- 0088 Jul, PTSD (post-traumatic stress disorder) F43.10 [place] [id number] [place] [address] 39012- 8266 Jul, [place] [id number] [place] [address] 06243- 0235 Jun, [place] [id number] [place] [address] 06434- 9446 Jun, HTN (hypertension) I10 [place] [id number] [place] [address] 04007- 6361 May, Depression F32.9 ; Post traumatic stress disorder F43.10 and Screening mammogram, encounter for Z12.31 [place] [id number] [place] [address] 43715- 0318 May, [address] 33640- 4596 May, PTSD (post-traumatic stress disorder) F43.10 and Major depressive disorder in partial remission F32.[address] 61662- 6677 May, PTSD (post-traumatic stress disorder) F43.10 ; IBS ( irritable bowel syndrome) K58.9 ; History of herniated intervertebral disc Z87.39 ; Anxiety F41.9 ; Depression F32.9 ; Hypertriglyceridemia E78.1 ; Eczema of both hands L30.9 ; HTN (hypertension) I10 and COPD (chronic obstructive pulmonary disease) J44.9 [id number] [place] [address] 13468- 5242 Apr, Major depressive disorder in partial remission F32.4 and PTSD (post-traumatic stress disorder) F43.10 [id number] [place] [address] 64141- 6887 Apr, PTSD (post-traumatic stress disorder) F43.10 [id number] [place] [address] 94550- 6986 Mar, IBS (irritable bowel syndrome) K58.9 ; PTSD (post-traumatic stress disorder) F43.10 ; COPD (chronic obstructive pulmonary disease) J44.9 ; History of herniated intervertebral disc Z87.39 ; HTN (hypertension) I10 ; Parkinsons G20 ; Annular psoriasis L40.8 and Hypertriglyceridemia E78.1 [id number] [place] [address] 26107- 9965 Feb, [id number] [place] [address] 05755- 7989 Feb, Moderate episode of recurrent major depressive disorder F33.1 and PTSD (post-traumatic stress disorder) F43.[id number] [place] [address] 88797- 1941 Jan, Onychocryptosis L60.0 [facility] [address] 44337- 9571 30 Dec, 2015 [facility] [address] 82526- 0872 Dec, Dizziness R42 ; PTSD (post-traumatic stress disorder) F43.10 ; Posttraumatic stress disorder F43.10 ; IBS (irritable bowel syndrome) K58.9 ; History of herniated intervertebral disc Z87.39 ; HTN (hypertension) I10 ; Chronic pain G89.29 and Hypercholesterolemia E78.0 [address] [address] 09225- 9012 Dec, [place] [address] 71909- 8611 Dec, [facility] [address] 96162 -2161 Dec, Annular psoriasis L40.8 [address] [address] 46265- 7231 Nov, [place] [address] 99504- 6461 Nov, [place] [address] 70019- 4710 Nov, HTN (hypertension) I10 ; Chronic pain G89.29 ; Annular psoriasis L40.8 ; IBS (irritable bowel syndrome) K58.9 and Vision changes H53.9 [place] [address] 41272- 4863 Oct, [facility] [address] 64135- 5244 Oct, IBS (irritable bowel syndrome) K58.9 ; PTSD (post-traumatic stress disorder) F43.10 ; HTN (hypertension) I10 ; Depression F32.9 ; History of herniated intervertebral disc Z87.39 ; Anxiety F41.9 ; Chronic pain G89.29 and Hypercholesterolemia E78.0 [address] [address] 46493- 0249 Oct, Major depressive disorder in partial remission F32.4 and PTSD (post-traumatic stress disorder) F43.10 [address] [address] 12247- 0691 Oct, IBS (irritable bowel syndrome) K58.9 ; PTSD (post-traumatic stress disorder) F43.10 ; Major depressive disorder, recurrent episode, severe F33.2 ; Anxiety F41.9 and Impacted cerumen, unspecified laterality H61.20 [place] [id number] [place] [address] 51636- 7969 Oct, Major depressive disorder in partial remission F32.4 ; Posttraumatic stress disorder F43.10 and Anxiety F41.9 [address] [place] [address] 51180- 2766 Sep, [address] [address] 49640- 9010 Sep, Anxiety F41.9 ; Major depressive disorder, recurrent episode , mild F33.0 and Posttraumatic stress disorder F43.10 [place] [id number] [place] [address] 29719- 1792 Sep, [address] [place] 08068- 3187 August, [address] [address] 00306- 7414 Jul, Contact dermatitis L25.9 [place] [id number] [place] [address] 87981- 8725 Jul, Major depressive disorder, recurrent episode, severe F33.2 ; Posttraumatic stress disorder F43.10 and Anxiety F41.9 [address] [address] [place] [address]- 7261 Jul, [place] [id number] [place] [address] 92760- 7809 Jun, IBS (irritable bowel syndrome) K58.9 ; COPD (chronic obstructive pulmonary disease) J44.9 ; HTN (hypertension) I10 ; Chronic pain G89.29 ; Anxiety F41.9 ; PTSD (post-traumatic stress disorder) F43.10 ; Parkinsons G20 and Hypercholesterolemia E78.0 [address] [id number] [place] [address] 29727- 3628 Jun, [address] [address] 88383- 4687 Jun, Onychocryptosis L60.0 and Onychomycosis B35.1 [place] [id number] [place] [address] 66493- 0510 May, [address] [id number] [place] [address] 06176- 1544 May, IBS (irritable bowel syndrome) K58.9 ; COPD (chronic obstructive pulmonary disease) J44.9 ; History of herniated intervertebral disc Z87.39 ; HTN (hypertension) I10 ; Anxiety F41.9 ; Depression F32.9 and Major depressive disorder in partial remission F32.4 [place] [id number] [place] [address] 03142- 8997 08 May, 2015 IBS (irritable bowel syndrome) K58.9 ; COPD (chronic obstructive pulmonary disease) J44.9 ; History of herniated intervertebral disc Z87.39 ; HTN (hypertension) I10 ; Anxiety F41.9 ; Depression F32.9 and Major depressive disorder in partial remission F32.4 [place] [id number] [place] [address] 16689- 9580 May, [address] [id number] [place] [address] 00377- 2295 May, Anxiety F41.9 ; IBS (irritable bowel syndrome) K58.9 and Major depressive disorder in partial remission F32.4 [place] [id number] [place] [address] 27971- 4972 18 Apr, 2015 Encounter for screening mammogram for breast cancer Z12.31 [place] [id number] [place] [address] 47611- 4431 15 Apr, 2015 [place] [address] 34766- 4295 11 Apr, 2015 [place] [id number] [place] [address] 49470- 7934 Apr, COPD (chronic obstructive pulmonary disease) J44.9 ; HTN ( hypertension) I10 ; Chronic pain G89.29 ; Anxiety F41.9 ; PTSD (post-traumatic stress disorder) F43.10 and IBS (irritable bowel syndrome) K58.[address] 75281- 6105 Apr, PTSD (post-traumatic stress disorder) F43.10 [id number] [place] [address] 95444- 7545 08 Apr, 2015 Onychocryptosis L60.0 and Onychomycosis B35.1 [id number] [place] [address] 39526- 3398 04 Apr, 2015 IBS (irritable bowel syndrome) K58.9 ; COPD (chronic obstructive pulmonary disease) J44.9 ; History of herniated intervertebral disc Z87.39 ; HTN (hypertension) I10 ; Chronic pain G89.29 ; Anxiety F41.9 ; Depression F32.9 ; Parkinsons G20 ; Hypercholesteremia E78.0 and Hemorrhoid K64.9 [address] [id number] [place] [address] 61402- 9186 Mar, [id number] [place] [address] 25463- 4983 Mar, Major depressive disorder, recurrent episode, severe F33.2 and Posttraumatic stress disorder F43.10 [facility] [address] [address] 2546 Mar, [facility] [id number] [place] [address] 85340 2546 Mar, [facility] [address] [address] 2546 Mar, PTSD (post-traumatic stress disorder) F43.10 [facility] [address] [address] 2546 Mar, Onychomycosis B35.1 and Hypertension, benign I10 [facility] [id number] [place] [address] 72334 2546 Mar, Onychomycosis B35.1 and Hypertension, benign I10 [facility] [id number] [place] [address] 79261- 9236 Feb, PTSD (post-traumatic stress disorder) F43.10 [facility] [address] [address] 2546 Feb, [facility] [id number] [place] [address] 89099 2546 Feb, Major depressive disorder, recurrent episode, severe F33.2 and Posttraumatic stress disorder F43.10 [facility] [address] [address] 2546 Jan, PTSD (post-traumatic stress disorder) F43.10 [facility] [address] [address] 2546 Jan, Rash R21 [facility] [id number] [place] [address] 01735 2546 Jan, PTSD (post-traumatic stress disorder) F43.10 [facility] [address] [address] 2546 Jan, [facility] [id number] [place] [address]- 1718 30 Dec, 2014 Neuropathy 355.9 [facility] [id number] [place] [address] 34401- 2144 30 Dec, 2014 PTSD (post-traumatic stress disorder) F43.10 [facility] [id number] [place] [address] 82615- 5931 29 Dec, 2014 MDD (major depressive disorder), recurrent episode, severe 296.33 and PTSD (post-traumatic stress disorder) 309.81 [facility] [id number] [place] [address] 09016- 4391 Dec, [facility] [id number] [place] [address] 26435- 6366 Dec, Ingrown toenail 703.0 [facility] [id number] [place] [address] 38083- 6946 Dec, Posttraumatic stress disorder 309.81 [facility] [id number] [place] [address] 31841- 4739 Nov, Depressive disorder, not elsewhere classified 311 and Anxiety state, unspecified 300.00 [facility] [id number] [place] [address] 89214- 4392 Oct, Depressive disorder, not elsewhere classified 311 and Anxiety state, unspecified 300.00 [facility] [address] [place] [address] 84594- 5479 Oct, Depressive disorder, not elsewhere classified 311 ; Anxiety state, unspecified 300.00 and No condition on [place] II V71.09 [facility] [address] [address] Oct, Dental examination V72.2 [facility] [id number] [place] [address] 41126- 3466 Oct, [facility] [id number] [place] [address] 48612- 8077 August, [facility] [address] [address]- 2394 August, Seizure 780.39 and IBS (irritable bowel syndrome) 564.1 [facility] [address] [id number] [place] [address]- 9906 14 Jul, 2014 [facility] [id number] [place] [address]- 4385 Jul, [facility] [address] [facility] [id number] [address]- 0282 Jun, [facility] [address] [facility] [id number] [place] [address]- 6432 Jun, [facility] [address] [facility] [id number] [place] [address]- 4283 Jun, [facility] [id number] [place] [address]- 6380 Jun, [facility] [address] [facility] [id number] [address]- 4332 Jun, [facility] [id number] [place] [address]- 9938 Jun, [facility] [id number] [address]- 5279 Jun, [facility] [address] [address]- 0400 Jun, [facility] [address] [facility] [id number] [address]- 7757 Jun, [facility] [address] [facility] [id number] [place] [address]- 3714 Jun, [facility] [address] [facility] [id number] [place] [address]- 0998 Jun, [facility] [id number] [address]- 4647 Jun, [facility] [address] [facility] [id number] [place] [address]- 9552 13 May, 2014 [facility] [address] [id number] [place] [address]- 5786 May, [facility] [address] [id number] [place] [address]- 3376 Apr, [facility] [address] [id number] [place] [address]- 7866 Apr, [facility] [address] [id number] [place] [address]- 4073 Mar, [facility] [address] [id number] [place] [address]- 2524 Mar, [facility] [address] [id number] [place] [address]- 3263 Mar, [facility] [address] [id number] [place] [address]- 5679 Mar, [facility] [address] [id number] [place] [address]- 2789 Mar, [facility] [address] [id number] [place] [address]- 8549 Mar, [facility] [address] [id number] [place] [address]- 1638 Mar, [facility] [address] [id number] [place] [address]- 2549 Mar, [facility] [address] [id number] [place] [address]- 2543 Mar, [facility] [place] [facility] [address] [id number] [place] [address]- 7446 Mar, [facility] [place] [facility] [address] [id number] [place] [address]- 2546 Mar, [facility] [place] [facility] [address] [id number] [place] [address]- 4436 Mar, [facility] [place] [facility] [address] [id number] [place] [address]- 8657 Mar, [facility] [place] [facility] [address] [id number] [place] [address] Mar, [facility] [place] [facility] [address] [id number] [place] [address] Mar, [facility] [place] [facility] [address] [id number] [place] [address] Mar, [facility] [place] [facility] [address] [id number] [place] [address] Mar, [facility] [place] [facility] [address] [id number] [place] [address] Mar, [facility] [place] [facility] [address] [id number] [place] [address] Mar, [facility] [place] [facility] [address] [id number] [place] [address] Feb, [facility] [place] [facility] [address] [id number] [place] [address] Feb, [facility] [place] [facility] [address] [id number] [place] [address] Feb, [facility] [place] [facility] [address] [id number] [place] [address] 18 Feb, 2014 [facility] [place] [facility] [address] [id number] [place] [address] 17 Feb, 2014 [facility] [place] [facility] [address] [id number] [place] [address] 17 Feb, 2014 [facility] [place] [facility] [address] [id number] [place] [address] 14 Feb, 2014 [facility] [place] [facility] [address] [id number] [place] [address] 14 Feb, 2014 [facility] [place] [facility] [address] [id number] [place] [address] Jan, [facility] [place] [facility] [address] [id number] [place] [address] Jan, [facility] [place] [facility] [address] [id number] [place] [address] Nov, [facility] [place] [facility] [address] [id number] [place] [address] Nov, [facility] [place] [facility] [address] [id number] [place] [address] Oct, [facility] [place] [facility] [address] [id number] [place] [address] Oct, [facility] [place] [facility] [address] [id number] [place] [address] Oct, [facility] [place] [facility] [address] [id number] [place] [address] Oct, [facility] [place] [facility] [address] [id number] [place] [address] Oct, [facility] [place] [facility] [address] [id number] [place] [address] Sep, [facility] [place] [facility] [address] [id number] [place] [address] Sep, [facility] [place] [facility] [address] [id number] [place] [address] August, [facility] [place] [facility] [address] [id number] [place] [address] August, [facility] [place] [facility] [address] [id number] [place] [address] Jun, [facility] [place] [facility] [address] [id number] [place] [address] Jun, [facility] [place] [facility] [address] [id number] [place] [address] Jun, [facility] [place] [facility] [address] [id number] [place] [address] 11 Jun, 2013 [facility] [place] [facility] [address] [id number] [place] [address] 10 Jun, 2013 [facility] [place] [facility] [address] [id number] [place] [address]676 10 Jun, 2013 [facility] [place] [facility] [address] [id number] [place] [address] 07 Jun, 2013 [facility] [place] [facility] [address] [id number] [place] [address] 07 Jun, 2013 [facility] [place] [facility] [address] [id number] [place] [address] Jun, [facility] [place] [facility] [address] [id number] [place] [address] Jun, [facility] [place] [facility] [address] [id number] [place] [address] Jun, [facility] [place] [facility] [address] [id number] [place] [address]24 04 Jun, 2013 [facility] [place] [facility] [address] [id number] [place] [address] Jun, [facility] [place] [facility] [address] [id number] [place] [address] Jun, [facility] [place] [facility] [address] [id number] [place] [address] May, [facility] [place] [facility] [address] [id number] [place] [address] 69[address] May, [facility] [place] [facility] [address] [id number] [place] [address] 1667 Apr, [facility] [place] [facility] [address] [id number] [place] [address] Apr, [facility] [place] [facility] [address] [id number] [place] [address] Mar, [facility] [place] [facility] [address] [id number] [place] [address] 3547 Mar, [facility] [place] [facility] [address] [id number] [place] [address] Feb, [facility] [place] [facility] [address] [facility] [id number] [place] [address] Feb, [facility] [place] [facility] [address] [id number] [place] [address] 27[address] Feb, [facility] [place] [facility] [address] [id number] [place] [address] Feb, [facility] [place] [facility] [address] [id number] [place] [address] Feb, [facility] [place] [facility] [address] [id number] [place] [address] Feb, [facility] [place] [facility] [address] [id number] [place] [address] Feb, [facility] [place] [facility] [address] [id number] [place] [address]13 Jan, [facility] [place] [facility] [address] [id number] [place] [address] Jan, [facility] [place] [facility] [address] [id number] [place] [address] Dec, [facility] [place] [facility] [address] [id number] [place] [address] Dec, [facility] [place] [facility] [address] [id number] [place] [address] 79[address] Nov, [facility] [place] [facility] [address] [id number] [place] [address] Nov, [facility] [place] [facility] [address] [facility] [id number] [place] [address] Oct, [facility] [place] [facility] [address] [id number] [place] [address] Sep, [facility] [address] [id number] [place] [address] Sep, [facility] [place] [facility] [address] [id number] [place] [address]20 August, [facility] [address] [id number] [place] [address] 47[address] August, [facility] [place] [facility] [address] [id number] [place] [address] 7618 August, [facility] [address] [id number] [place] [address]- [address] Jul, [facility] [place] [facility] [address] [id number] [place] [address] 9864 May, [facility] [address] [id number] [place] [address] 8542 May, [facility] [address] [id number] [place] [address] Apr, [facility] [address] [id number] [place] [address] Apr, [facility] [address] [id number] [place] [address] 8819 Feb, [facility] [place] [facility] [address] [id number] [place] [address] 9264 Feb, [facility] [place] [facility] [address] [id number] [place] [address] Jan, [facility] [place] [facility] [address] [id number] [place] [address] 6263 Jan, [facility] [place] [facility] [address] [id number] [place] [address] 2546 Jan, [facility] [place] [facility] [address] [id number] [place] [address] Nov, [facility] [place] [facility] [address] [id number] [place] [address] 6525 Nov, [facility] [place] [facility] [address] [id number] [place] [address] 9793 Nov, [facility] [place] [facility] [address] [id number] [place] [address] 2993 Nov, [facility] [place] [facility] [address] [id number] [place] [address]- 0842 Nov, [facility] [place] [facility] [address] [id number] [place] [address]- 4166 Oct, [facility] [place] [facility] [address] [id number] [place] [address]- 6[address] Oct, [facility] [place] [facility] [address] [id number] [place] [address]- 0349 Oct, [facility] [place] [facility] [address] [id number] [place] [address]- 2268 Oct, [facility] [place] [facility] [address] [id number] [place] [address]- 4484 Oct, [facility] [place] [facility] [address] [id number] [place] [address]- 3777 Oct, [facility] [place] [facility] [address] [id number] [place] [address]- 7433 Oct, [facility] [place] [facility] [address] [id number] [place] [address]- 1436 Sep, [facility] [place] [facility] [address] [id number] [place] [address]- 9867 Sep, [facility] [place] [facility] [address] [id number] [place] [address]- 3140 Sep, [facility] [place] [facility] [address] [id number] [place] [address]- 4649 August, [facility] [place] [facility] [address] [id number] [place] [address]- 9346 30 Jul, 2011 [facility] [address] [id number] [place] [address]- 1832 28 Jul, 2011 [facility] [place] [facility] [address] [id number] [place] [address]- 3334 27 Jul, 2011 [facility] [place] [facility] [address] [id number] [place] [address]- 2148 16 Jul, 2011 [facility] [place] [facility] [address] [id number] [place] [address]- 4003 13 Jul, 2011 [facility] [place] [facility] [address] [id number] [place] [address]- 8239 Jun, [facility] [place] [facility] [address] [id number] [place] [address]- 4732 May, [facility] [address] [id number] [place] [address]- 9697 Apr, [facility] [place] [facility] [address] [id number] [place] [address]- 2994 Apr, [facility] [place] [facility] [address] [id number] [place] [address]- 5022 Apr, [facility] [place] [facility] [address] [id number] [place] [address]- 3500 Apr, [facility] [place] [facility] [address] [id number] [place] [address]- 6973 Apr, [facility] [place] [facility] [address] [id number] [place] [address]- 0996 Apr, [facility] [place] [facility] [address] [id number] [place] [address]- 5893 Mar, [facility] [place] [facility] [address] [id number] [place] [address]- 2959 Mar, [facility] [place] [facility] [address] [facility] [id number] [place] [address]- 8105 Feb, [facility] [place] [facility] [address] [id number] [place] [address]- 8534 10 Nov, 2010 [facility] [place] [facility] [address] [id number] [place] [address]- 9943 Jun, [facility] [place] [facility] [address] [id number] [place] [address]- 3696 Apr, [facility] [place] [facility] [address] [id number] [place] [address]- 2887 Feb, [facility] [place] [facility] [address] [id number] [place] [address]- 2101 Jan, [facility] [place] [facility] [address] [id number] [place] [address]- 7282 Jan, [facility] [place] [facility] [address] [id number] [place] [address]- 1465 Jan, [facility] [place] [facility] [address] [id number] [place] [address]- 8047 Jan, [facility] [place] [facility] [address] [id number] [place] [address]- 0767 16 Nov, 2009 [facility] [place] [facility] [address] [id number] [place] [address]- 9537 Nov, [facility] [place] [facility] [address] [facility] [id number] [place] [address]- 2996 Mar, [facility] [place] [facility] [address] [id number] [place] [address]- 9246 Mar, [facility] [place] [facility] [address] [id number] [place] [address]- 9553 Feb, [facility] [place] [facility] [address] [id number] [place] [address]- 5263 Feb, [facility] [place] [facility] [address] [id number] [place] [address]- 0808 23 Jan, 2009 [facility] [place] [facility] [address] [id number] [place] [address]- 9196 10 May, 2008 IMMUNIZATIONS No Known Immunizations SOCIAL HISTORY Never Assessed REASON FOR VISIT Requests return call PLAN OF CARE VITAL SIGNS MEDICATIONS Medication Instructions Dosage Frequency Start Date End Date Duration Status Lasix 80 MG Orally Once a day x1 week, then return to 20mg daily 1 tablet Sep, 07 days Active Lasix 20 mg Orally Once a day 1 tablet 24h August, 30 day(s) Active RESULTS No Results PROCEDURES No Known [...]
--- OUTSIDE RECORDS SUMMARY | 2018-03-25 15:05 | XMS REPORT ---
Author Author NAYA JACKSON Organization [facility] Address [address] [place] [address] Care Team Providers Care Day Care Home Mother Name Role Phone NAYA JACKSON Unavailable PROBLEMS Type Condition ICD9-CM Code REG60-MJ Code Onset Dates Condition Status SNOMED Code Problem Hypertriglyceridemia E78.1 Active 409660649 Problem Other chronic pain G89.29 Active 02801743 Problem Cervical disc disease M50.90 Active 531450126 Problem Major depressive disorder, single episode, mild F32.0 Active 11353763 Problem Irritable bowel syndrome with diarrhea K58.0 Active 473687144 Problem Paresthesia of bilateral legs R20.2 Active 987829239 Problem Ulcerative pancolitis without complication K51.00 Active 550940646 Problem Abnormal mammogram R92.8 Active 977309276 Problem Polyneuropathy G62.9 Active 27915251 Problem PTSD (post-traumatic stress disorder) F43.10 Active 47558317 Problem Major depressive disorder, recurrent episode, severe F33.2 Active 749641466339 Problem HTN (hypertension) I10 Active 78307869 Problem Depression F32.9 Active 14510762 Problem Parkinsons G20 Active 20220196 Problem Anxiety F41.9 Active 40799358 Problem COPD (chronic obstructive pulmonary disease) J44.9 Active 11216768 Problem Annular psoriasis L40.8 Active 946394666 ALLERGIES No Information ENCOUNTERS Encounter Location Date Diagnosis [facility] [id number] [address] Nov, Irritable bowel syndrome with diarrhea K58.0 and Alopecia L65.9 [facility] [address] [address] Oct, Chronic diarrhea K52.9 and Acute colitis K52.9 [facility] [id number] [place] [address] 40668- 9807 Oct, Chronic diarrhea K52.9 [facility] [address] [place] [address] 75381- 9168 Oct, Chronic diarrhea K52.9 and Edema of both legs R60.0 [facility] [id number] [place] [address] 35018- 0261 Sep, Medicare annual wellness visit, initial Z00.00 ; Parkinsons G20 ; COPD (chronic obstructive pulmonary disease) J44.9 ; Major depressive disorder, single episode, mild F32.0 ; HTN (hypertension) I10 ; Hypokalemia E87.6 and Adverse effect of carbonic-anhydrase inhibitors, benzothiadiazides and other diuretics, initial encounter T50.2X5A [facility] [id number] [place] [address] 10715- 0883 Sep, Localized edema R60.0 [facility] [id number] [place] [address] 87024- 0968 Sep, [facility] [id number] [place] [address] 71908- 2956 Sep, Major depressive disorder, single episode, mild F32.0 ; PTSD (post-traumatic stress disorder) F43.10 and Edema of both legs R60.0 [facility] [id number] [place] [address] 34433- 6948 August, Localized edema R60.0 [facility] [id number] [place] [address] 89445- 2674 August, Localized edema R60.0 ; Weight gain R63.5 and Irritable bowel syndrome with diarrhea K58.0 [facility] [id number] [place] [address] 31297- 5734 Jul, [facility] [id number] [place] [address] 76711- 9092 Jul, Elevated liver enzymes R74.8 [id number] [place] [address] 04240- 7001 Jul, Polyneuropathy G62.9 [facility] [address], [place] [address] Jul, [facility] [id number] [place] [address] 42684- 9422 Jul, Cervical disc disease M50.90 [facility] [id number] [place] [address] 00158- 9784 Jul, Elevated liver enzymes R74.8 [facility] [id number] [place] [address] 42195- 9192 Jul, Polyneuropathy G62.9 ; Ulcerative pancolitis without complication K51.00 ; Depression F32.9 ; Leg weakness, bilateral R29.898 and Paresthesia of bilateral legs R20.2 [facility] [id number] [place] [address] 54345- 2876 Jul, Polyneuropathy G62.9 ; Ulcerative pancolitis without complication K51.00 ; Depression F32.9 ; Leg weakness, bilateral R29.898 and Paresthesia of bilateral legs R20.2 [facility] [id number] [place] [address] 61373- 1872 Jun, [facility] [id number] [place] [address] 74679- 5536 Jun, Fibrous breast lumps N63.0 [facility] [id number] [place] [address] 70835- 2075 Jun, Ulcerative pancolitis without complication K51.00 [facility] [id number] [place] [address] 44722- 5328 Jun, Abnormal mammogram R92.8 [facility] [id number] [place] [address] 14931- 9125 Jun, Breast density R92.2 [facility] [id number] [place] [address] 61208- 3620 Jun, [facility] [id number] [place] [address] 89133- 2477 Jun, PTSD (post-traumatic stress disorder) F43.10 [facility] [id number] [place] [address] 85279- 3973 May, [facility] [id number] [place] [address] 20367- 7806 May, Breast cancer screening Z12.31 and Fibrous breast lumps N63.0 [facility] [id number] [place] [address] 24166- 3651 Apr, Ulcerative pancolitis without complication K51.00 [facility] [id number] [place] [address] 65665- 7932 Apr, [facility] [id number] [place] [address] 20604- 1613 Apr, Ulcerative pancolitis without complication K51.00 ; Low back pain M54.5 and Other chronic pain G89.29 [facility] [id number] [place] [address] 69932- 4204 28 Dec, 2016 Cervical disc disease M50.90 and HTN (hypertension) I10 [facility] [id number] [place] [address] 37443- 0489 05 Dec, 2016 Moderate episode of recurrent major depressive disorder F33.1 and PTSD (post-traumatic stress disorder) F43.10 [facility] [id number] [place] [address] 83487- 5157 Oct, [facility] [id number] [place] [address] 25820- 3096 Oct, Irritable bowel syndrome with diarrhea K58.0 [facility] [id number] [place] [address] 34224- 8169 07 Oct, 2016 Irritable bowel syndrome with diarrhea K58.0 [facility] [id number] [place] [address] 70911- 9361 Sep, Diarrhea, unspecified type R19.7 ; Chronic pain G89.29 ; Hypertriglyceridemia E78.1 ; PTSD (post-traumatic stress disorder) F43.10 ; History of herniated intervertebral disc Z87.39 and Depression F32.9 [facility] [id number] [place] [address] 95393- 9626 August, Moderate episode of recurrent major depressive disorder F33.1 and PTSD (post-traumatic stress disorder) F43.10 [facility] [id number] [place] [address] 16616- 4706 August, [facility] [address] 80293- 8259 Jul, [facility] [id number] [place] [address] 16468- 6227 Jul, PTSD (post-traumatic stress disorder) F43.10 ; IBS ( irritable bowel syndrome) K58.9 ; HTN (hypertension) I10 ; Hypertriglyceridemia E78.1 ; Chronic pain G89.29 ; Anxiety F41.9 ; Depression F32.9 ; COPD (chronic obstructive pulmonary disease) J44.9 ; Irritable bowel syndrome with diarrhea K58.0 and Second degree hemorrhoids K64.1 [facility] [id number] [place] [address] 42796- 7250 Jul, PTSD (post-traumatic stress disorder) F43.10 [facility] [id number] [place] [address] 19974- 6353 Jul, [facility] [id number] [place] [address] 03509- 4910 Jun, [facility] [id number] [place] [address] 02040- 4969 Jun, HTN (hypertension) I10 [facility] [id number] [place] [address] 18786- 2722 May, Depression F32.9 ; Post traumatic stress disorder F43.10 and Screening mammogram, encounter for Z12.31 [facility] [id number] [place] [address] 36779- 4189 May, [address] 62723- 4174 May, PTSD (post-traumatic stress disorder) F43.10 and Major depressive disorder in partial remission F32.[address] 48307- 0176 May, PTSD (post-traumatic stress disorder) F43.10 ; IBS ( irritable bowel syndrome) K58.9 ; History of herniated intervertebral disc Z87.39 ; Anxiety F41.9 ; Depression F32.9 ; Hypertriglyceridemia E78.1 ; Eczema of both hands L30.9 ; HTN (hypertension) I10 and COPD (chronic obstructive pulmonary disease) J44.9 [id number] [place] [address] 33041- 3112 Apr, Major depressive disorder in partial remission F32.4 and PTSD (post-traumatic stress disorder) F43.10 [id number] [place] [address] 69138- 2863 Apr, PTSD (post-traumatic stress disorder) F43.10 [id number] [place] [address] 79945- 4162 Mar, IBS (irritable bowel syndrome) K58.9 ; PTSD (post-traumatic stress disorder) F43.10 ; COPD (chronic obstructive pulmonary disease) J44.9 ; History of herniated intervertebral disc Z87.39 ; HTN (hypertension) I10 ; Parkinsons G20 ; Annular psoriasis L40.8 and Hypertriglyceridemia E78.1 [id number] [place] [address] 19784- 8281 Feb, [id number] [place] [address] 35717- 4671 Feb, Moderate episode of recurrent major depressive disorder F33.1 and PTSD (post-traumatic stress disorder) F43.[id number] [place] [address] 67572- 9663 Jan, Onychocryptosis L60.0 [facility] [address] 79028- 0092 30 Dec, 2015 [facility] [address] 34425- 9106 Dec, Dizziness R42 ; PTSD (post-traumatic stress disorder) F43.10 ; Posttraumatic stress disorder F43.10 ; IBS (irritable bowel syndrome) K58.9 ; History of herniated intervertebral disc Z87.39 ; HTN (hypertension) I10 ; Chronic pain G89.29 and Hypercholesterolemia E78.0 [facility] [address] 26900- 7176 Dec, [facility] [address] 32381- 0483 Dec, [facility] [address] 39075 -5669 Dec, Annular psoriasis L40.8 [facility] [address] 29075- 0963 Nov, [facility] [address] 73994- 6155 Nov, [facility] [address] 21182- 6273 Nov, HTN (hypertension) I10 ; Chronic pain G89.29 ; Annular psoriasis L40.8 ; IBS (irritable bowel syndrome) K58.9 and Vision changes H53.9 [facility] [address] 19579- 7692 Oct, [facility] [address] 94817- 8438 Oct, IBS (irritable bowel syndrome) K58.9 ; PTSD (post-traumatic stress disorder) F43.10 ; HTN (hypertension) I10 ; Depression F32.9 ; History of herniated intervertebral disc Z87.39 ; Anxiety F41.9 ; Chronic pain G89.29 and Hypercholesterolemia E78.0 [facility] [address] 77118- 7046 Oct, Major depressive disorder in partial remission F32.4 and PTSD (post-traumatic stress disorder) F43.10 [facility] [address] 40445- 0716 Oct, IBS (irritable bowel syndrome) K58.9 ; PTSD (post-traumatic stress disorder) F43.10 ; Major depressive disorder, recurrent episode, severe F33.2 ; Anxiety F41.9 and Impacted cerumen, unspecified laterality H61.20 [facility] [id number] [place] [address] 05934- 2425 Oct, Major depressive disorder in partial remission F32.4 ; Posttraumatic stress disorder F43.10 and Anxiety F41.9 [facility] [address] 16380- 1089 Sep, [facility] [address] 00413- 4920 Sep, Anxiety F41.9 ; Major depressive disorder, recurrent episode , mild F33.0 and Posttraumatic stress disorder F43.10 [facility] [id number] [place] [address] 43370- 0287 Sep, [facility] [address] 41632- 7539 August, [facility] [address] 39672- 7160 Jul, Contact dermatitis L25.9 [facility] [id number] [place] [address] 52190- 2395 Jul, Major depressive disorder, recurrent episode, severe F33.2 ; Posttraumatic stress disorder F43.10 and Anxiety F41.9 [facility] [place] [address] [place] [address]- 2872 Jul, [facility] [id number] [place] [address] 87613- 9269 Jun, IBS (irritable bowel syndrome) K58.9 ; COPD (chronic obstructive pulmonary disease) J44.9 ; HTN (hypertension) I10 ; Chronic pain G89.29 ; Anxiety F41.9 ; PTSD (post-traumatic stress disorder) F43.10 ; Parkinsons G20 and Hypercholesterolemia E78.0 [facility] [id number] [place] [address] 85731- 7648 Jun, [facility] [address] 50824- 2664 Jun, Onychocryptosis L60.0 and Onychomycosis B35.1 [facility] [id number] [place] [address] 12621- 3740 May, [facility] [id number] [place] [address] 83038- 1504 May, IBS (irritable bowel syndrome) K58.9 ; COPD (chronic obstructive pulmonary disease) J44.9 ; History of herniated intervertebral disc Z87.39 ; HTN (hypertension) I10 ; Anxiety F41.9 ; Depression F32.9 and Major depressive disorder in partial remission F32.4 [facility] [id number] [place] [address] 19227- 5794 08 May, 2015 IBS (irritable bowel syndrome) K58.9 ; COPD (chronic obstructive pulmonary disease) J44.9 ; History of herniated intervertebral disc Z87.39 ; HTN (hypertension) I10 ; Anxiety F41.9 ; Depression F32.9 and Major depressive disorder in partial remission F32.4 [facility] [id number] [place] [address] 24919- 9088 May, [facility] [id number] [place] [address] 06967- 8876 May, Anxiety F41.9 ; IBS (irritable bowel syndrome) K58.9 and Major depressive disorder in partial remission F32.4 [facility] [id number] [place] [address] 88810- 5856 18 Apr, 2015 Encounter for screening mammogram for breast cancer Z12.31 [facility] [id number] [place] [address] 59979- 1624 15 Apr, 2015 [facility] [address] 32588- 5320 11 Apr, 2015 [facility] [id number] [place] [address] 95303- 9310 Apr, COPD (chronic obstructive pulmonary disease) J44.9 ; HTN ( hypertension) I10 ; Chronic pain G89.29 ; Anxiety F41.9 ; PTSD (post-traumatic stress disorder) F43.10 and IBS (irritable bowel syndrome) K58.[address] 53946- 7072 Apr, PTSD (post-traumatic stress disorder) F43.10 [id number] [place] [address] 49351- 4703 08 Apr, 2015 Onychocryptosis L60.0 and Onychomycosis B35.1 [id number] [place] [address] 07398- 7743 04 Apr, 2015 IBS (irritable bowel syndrome) K58.9 ; COPD (chronic obstructive pulmonary disease) J44.9 ; History of herniated intervertebral disc Z87.39 ; HTN (hypertension) I10 ; Chronic pain G89.29 ; Anxiety F41.9 ; Depression F32.9 ; Parkinsons G20 ; Hypercholesteremia E78.0 and Hemorrhoid K64.9 [facility] [id number] [place] [address] 21787- 9586 Mar, [id number] [place] [address] 83454- 1124 Mar, Major depressive disorder, recurrent episode, severe F33.2 and Posttraumatic stress disorder F43.10 [facility] [address], [place] [address] 2546 Mar, [facility] [id number] [place] [address] 00058 2546 Mar, [facility] [address], [place] [address] 2546 Mar, PTSD (post-traumatic stress disorder) F43.10 [facility] [address], [place] [address] 2546 Mar, Onychomycosis B35.1 and Hypertension, benign I10 [facility] [id number] [place] [address] 05470 2546 Mar, Onychomycosis B35.1 and Hypertension, benign I10 [facility] [id number] [place] [address] 78972- 1006 Feb, PTSD (post-traumatic stress disorder) F43.10 [facility] [address], [place] [address] 2546 Feb, [facility] [address] [place] [address] 27150 2546 Feb, Major depressive disorder, recurrent episode, severe F33.2 and Posttraumatic stress disorder F43.10 [facility] [address], [place] [address] 2546 Jan, PTSD (post-traumatic stress disorder) F43.10 [facility] [address], [place] [address] 2546 Jan, Rash R21 [facility] [id number] [place] [address] 72749 2546 Jan, PTSD (post-traumatic stress disorder) F43.10 [facility] [address], [place] [address] 2546 Jan, [facility] [id number] [place] [address]- 5086 30 Dec, 2014 Neuropathy 355.9 [facility] [id number] [place] [address] 75768- 2563 30 Dec, 2014 PTSD (post-traumatic stress disorder) F43.10 [facility] [id number] [place] [address] 22496- 3586 29 Dec, 2014 MDD (major depressive disorder), recurrent episode, severe 296.33 and PTSD (post-traumatic stress disorder) 309.81 [facility] [id number] [place] [address] 43943- 7169 Dec, [facility] [id number] [place] [address] 84336- 9732 Dec, Ingrown toenail 703.0 [facility] [id number] [place] [address] 75761- 1551 Dec, Posttraumatic stress disorder 309.81 [facility] [id number] [place] [address] 80269- 0558 Nov, Depressive disorder, not elsewhere classified 311 and Anxiety state, unspecified 300.00 [facility] [id number] [place] [address] 74407- 9622 Oct, Depressive disorder, not elsewhere classified 311 and Anxiety state, unspecified 300.00 [facility] [id number] [place] [address] 13032- 3510 Oct, Depressive disorder, not elsewhere classified 311 ; Anxiety state, unspecified 300.00 and No condition on Castaner II V71.09 [facility] [address] [address] Oct, Dental examination V72.2 [facility] [id number] [place] [address] 58861- 9482 Oct, [facility] [id number] [place] [address] 67874- 0784 August, [facility] [address] [address]- 5187 August, Seizure 780.39 and IBS (irritable bowel syndrome) 564.1 [facility] [address] [id number] [place] [address]- 8516 14 Jul, 2014 [facility] [id number] [place] [address]- 4898 Jul, [facility] [address] [facility] [id number] [address]- 8966 Jun, [facility] [address] [facility] [id number] [place] [address]- 9952 Jun, [facility] [address] [facility] [id number] [place] [address]- 4237 Jun, [facility] [id number] [place] [address]- 7853 Jun, [facility] [address] [facility] [id number], [place] [address]- 4670 Jun, [facility] [id number] [place] [address]- 2207 Jun, [facility] [id number] [address]- 8103 Jun, [facility] [address] [address]- 2603 Jun, [facility] [address] [facility] [id number], [place] [address]- 1836 Jun, [facility] [address] [facility] [id number] [place] [address]- 0721 Jun, [facility] [address] [facility] [id number], [place] [address]- 2179 Jun, [facility] [id number] [address]- 3290 Jun, [facility] [address] [facility] [id number] [place] [address]- 3481 13 May, 2014 [facility] [address] [id number] [place] [address]- 5076 May, [facility] [address] [id number] [place] [address]- 6546 Apr, [facility] [address] [id number] [place] [address]- 7226 Apr, [facility] [address] [id number] [place] [address]- 0[address] Mar, [facility] [address] [id number] [place] [address] Mar, [facility] [address] [id number] [place] [address] Mar, [facility] [address] [id number] [place] [address] Mar, [facility] [address] [id number] [place] [address] Mar, [facility] [address] [id number] [place] [address] Mar, [facility] [address] [id number] [place] [address] Mar, [facility] [address] [id number] [place] [address] Mar, [facility] [address] [id number] [place] [address] Mar, [facility] [place] [facility] [address] [id number] [place] [address] Mar, [facility] [place] [facility] [address] [id number] [place] [address] Mar, [facility] [place] [facility] [address] [id number] [place] [address] Mar, [facility] [place] [facility] [address] [id number] [place] [address] Mar, [facility] [place] [facility] [address] [id number] [place] [address] Mar, [facility] [place] [facility] [address] [id number] [place] [address] Mar, [facility] [place] [facility] [address] [id number] [place] [address] Mar, [facility] [place] [facility] [address] [id number] [place] Mar, [facility] [place] [facility] [address] [id number] [place] [address] Mar, [facility] [place] [facility] [address] [id number] [place] [address] Mar, [facility] [facility] [address] [id number] [place] [address] Feb, [facility] [place] [facility] [address] [id number] [place] [address] Feb, [facility] [place] [facility] [address] [id number] [place] [address] Feb, [facility] [place] [facility] [address] [id number] [place] [address] 115[address] 18 Feb, 2014 [facility] [place] [facility] [address] [id number], [place] [address] 17 Feb, 2014 [facility] [place] [facility] [address] [id number] [place] [address] 9434 17 Feb, 2014 [facility] [place] [facility] [address] [id number] [place] [address]88 14 Feb, 2014 [facility] [place] [facility] [address] [id number] [place] [address] 9293 14 Feb, 2014 [facility] [place] [facility] [address] [id number], [place] [address] Jan, [facility] [place] [facility] [address] [id number] [place] [address] Jan, [facility] [place] [facility] [address] [id number] [place] [address] Nov, [facility] [place] [facility] [address] [id number] [place] [address] 3842 Nov, [facility] [place] [facility] [address] [id number] [place] [address] Oct, [facility] [place] [facility] [address] [id number] [place] [address] 1678 Oct, [facility] [place] [facility] [address] [id number] [place] [address] 7014 Oct, [facility] [place] [facility] [address] [id number] [place] [address] 2972 Oct, [facility] [place] [facility] [address] [id number] [place] [address] 3207 Oct, [facility] [place] [facility] [address] [id number] [place] [address] Sep, [facility] [place] [facility] [address] [id number] [place] [address] 9769 Sep, [facility] [place] [facility] [address] [id number] [place] [address]- 4143 August, [facility] [place] [facility] [address] [id number] [place] [address] 5740 August, [facility] [place] [facility] [address] [id number] [place] [address] 4977 Jun, [facility] [address] [id number] [place] [address] Jun, [facility] [place] [address] [id number] [place] [address]- 3569 Jun, [facility] [place] [address] [id number] [place] [address] 11 Jun, 2013 [facility] [place] [address] [id number] [place] [address]- 9027 10 Jun, 2013 [facility] [place] [address] [id number] [place] [address]- 6966 10 Jun, 2013 [facility] [place] [facility] [address] [id number] [place] [address]- 0635 07 Jun, 2013 [facility] [address] [id number] [place] [address]- [address] 07 Jun, 2013 [facility] [place] [address] [id number] [place] [address]- 9630 Jun, [facility] [place] [address] [id number] [place] [address]- 7407 Jun, [facility] [place] [address] [id number] [place] [address]- [address] Jun, [facility] [address] [id number] [place] [address]- 8324 04 Jun, 2013 [facility] [place] [facility] [address] [id number] [place] [address] Jun, [facility] [address] [id number] [place] [address] 82[address] Jun, [facility] [address] [id number] [place] [address]100 May, [facility] [address] [id number] [place] [address]- 77[address] May, [facility] [place] [address] [id number] [place] [address]- 2047 Apr, [facility] [place] [facility] [address] [id number] [place] [address]- 1456 Apr, [facility] [address] [id number] [place] [address] Mar, [facility] [address] [id number] [place] [address]- 8981 Mar, [facility] [address] [id number] [place] [address]- 7786 Feb, [facility] [address] [facility] [id number] [place] [address]- 0871 Feb, [facility] [address] [id number] [place] [address]- 6165 Feb, [facility] [address] [id number] [place] [address]- 9848 Feb, [facility] [address] [id number] [place] [address]- 9482 Feb, [facility] [address] [id number] [place] [address]- 6192 Feb, [facility] [address] [id number], [place] [address] Feb, [facility] [address] [id number] [place] [address]- 2621 Jan, [facility] [address] [id number], [place] [address] 8291 Jan, [facility] [address] [id number], [place] [address]- 9390 Dec, [facility] [address] [id number], [place] [address] 2548 Dec, [facility] [address] [id number], [place] [address] 8723 Nov, [facility] [address] [id number], [place] [address]- 4723 Nov, [facility] [address] [facility] [id number], [place] [address]- [address]44 Oct, [facility] [address] [id number] [place] [address] 9799 Sep, [facility] [address] [id number] [place] [address]- 5323 Sep, [facility] [address] [id number] [place] [address] 5366 August, [facility] [address] [id number] [place] [address]- 3902 August, [facility] [address] [id number] [place] [address]- 6566 August, [facility] [address] [id number] [place] [address]- 2196 Jul, [facility] [address] [id number] [place] [address]- 5275 May, [facility] [address] [id number] [place] [address]- 4308 May, [facility] [address] [id number] [place] [address]- 6877 Apr, [facility] [address] [id number] [place] [address]- 1573 Apr, [facility] [address] [id number] [place] [address]- 5551 Feb, [facility] [address] [id number] [place] [address]- 7540 Feb, [facility] [address] [id number] [place] [address]- 3687 Jan, [facility] [address] [id number] [place] [address]- 7857 Jan, [facility] [address] [id number] [place] [address]- 2546 Jan, [facility] [address] [id number] [place] [address]- 3979 Nov, [facility] [address] [id number] [place] [address]- 2657 Nov, [facility] [address] [id number] [place] [address]- 5186 Nov, [facility] [address] [id number] [place] [address]- 3335 Nov, [facility] [address] [id number] [place] [address]- 3742 Nov, [facility] [address] [id number] [place] [address]- 8542 Oct, [facility] [address] [id number] [place] [address]- 6490 Oct, [facility] [address] [id number] [place] [address]- 9838 Oct, [facility] [address] [id number] [place] [address]- 2287 Oct, [facility] [address] [id number] [place] [address]- 1017 Oct, [facility] [address] [id number] [place] [address]- 7166 Oct, [facility] [address] [id number] [place] [address]- 1721 Oct, [facility] [address] [id number] [place] [address]- 0929 Sep, [facility] [address] [id number] [place] [address]- 9811 Sep, [facility] [address] [id number] [place] [address]- 9107 Sep, [facility] [address] [id number] [place] [address]- 0513 August, [facility] [address] [id number] [place] [address]- 0619 30 Jul, 2011 [facility] [address] [id number] [place] [address]- 3458 28 Jul, 2011 [facility] [address] [id number] [place] [address]- 4775 27 Jul, 2011 [facility] [address] [id number] [place] [address]- 3765 16 Jul, 2011 [facility] [address] [id number] [place] [address]- 4042 13 Jul, 2011 [facility] [address] [id number] [place] [address]- 5122 Jun, [facility] [address] [id number] [place] [address]- 3789 May, [facility] [address] [id number] [place] [address]- 4362 Apr, [facility] [address] [id number] [place] [address]- 9699 Apr, [facility] [address] [id number] [place] [address]- 9130 Apr, [facility] [address] [id number] [place] [address]- 8199 Apr, [facility] [address] [id number] [place] [address]- 1356 Apr, [facility] [address] [id number] [place] [address]- 6102 Apr, [facility] [address] [id number] [place] [address]- 1646 Mar, [facility] [address] [id number] [place] [address]- 6449 Mar, [facility] [address] [facility] [id number] [place] [address]- 9473 Feb, [facility] [address] [id number] [place] [address]- 6131 10 Nov, 2010 [facility] [address] [id number] [place] [address]- 5085 Jun, [facility] [address] [id number] [place] [address]- 4718 Apr, [facility] [address] [id number] [place] [address]- 8637 Feb, [facility] [address] [id number] [place] [address]- 5242 Jan, [facility] [address] [id number] [place] [address]- 0552 Jan, [facility] [address] [id number] [place] [address]- 6994 Jan, [facility] [address] [id number] [place] [address]- 0180 Jan, [facility] [address] [id number] [place] [address]- 3900 16 Nov, 2009 [facility] [address] [id number] [place] [address]- 2904 Nov, [facility] [address] [facility] [id number] [place] [address]- 5147 Mar, [facility] [place] [facility] [address] [id number] [place] [address]- 9386 Mar, [facility] [address] [id number] [place] [address]- 2074 Feb, [facility] [address] [id number] [place] [address]- 5888 Feb, [facility] [address] [id number] [place] [address]- 0550 23 Jan, 2009 [facility] [address] [id number] [place] [address]- 2721 10 May, 2008 IMMUNIZATIONS No Known Immunizations SOCIAL HISTORY Never Assessed REASON FOR VISIT Refill request PLAN OF CARE VITAL SIGNS MEDICATIONS Medication Instructions Dosage Frequency Start Date End Date Duration Status Gabapentin 800MG TAKE ONE TABLET BY MOUTH THREE TIMES DAILY Active RESULTS No Results PROCEDURES No Known [...]
--- OUTSIDE RECORDS SUMMARY | 2018-03-25 15:06 | XMS REPORT ---
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 Name Role Phone NAYA JACKSON Unavailable PROBLEMS Type Condition ICD9-CM Code CDT82-XO Code Onset Dates Condition Status SNOMED Code Problem Hypertriglyceridemia E78.1 Active 021484387 Problem Other chronic pain G89.29 Active 40356179 Problem Cervical disc disease M50.90 Active 999846752 Problem Major depressive disorder, single episode, mild F32.0 Active 06725269 Problem Irritable bowel syndrome with diarrhea K58.0 Active 110203956 Problem Paresthesia of bilateral legs R20.2 Active 861560261 Problem Ulcerative pancolitis without complication K51.00 Active 818363449 Problem Abnormal mammogram R92.8 Active 336862027 Problem Polyneuropathy G62.9 Active 20737489 Problem PTSD (post-traumatic stress disorder) F43.10 Active 07639895 Problem Major depressive disorder, recurrent episode, severe F33.2 Active 893161063637 Problem HTN (hypertension) I10 Active 47463288 Problem Depression F32.9 Active 13372400 Problem Parkinsons G20 Active 18679564 Problem Anxiety F41.9 Active 53043780 Problem COPD (chronic obstructive pulmonary disease) J44.9 Active 02814499 Problem Annular psoriasis L40.8 Active 125531438 ALLERGIES Substance Reaction Event Type Date Status Latex Unknown Drug Allergy August, Active Budesonide rash/swelling Drug Allergy August, Active ENCOUNTERS Encounter Location Date Diagnosis [facility] [id number] [address] Nov, Irritable bowel syndrome with diarrhea K58.0 and Alopecia L65.9 [facility] [id number] [address] Oct, Chronic diarrhea K52.9 and Acute colitis K52.9 [facility] [address] [address] Oct, Chronic diarrhea K52.9 [place] [facility] [id number] [place] [address] 62468- 1996 Oct, Chronic diarrhea K52.9 and Edema of both legs R60.0 [place] [id number] [place] [address] 80815- 6886 Sep, Medicare annual wellness visit, initial Z00.00 ; Parkinsons G20 ; COPD (chronic obstructive pulmonary disease) J44.9 ; Major depressive disorder, single episode, mild F32.0 ; HTN (hypertension) I10 ; Hypokalemia E87.6 and Adverse effect of carbonic-anhydrase inhibitors, benzothiadiazides and other diuretics, initial encounter T50.2X5A [place] [id number] [place] [address] 69840- 2345 Sep, Localized edema R60.0 [facility] [facility] [id number] [place] [address] 76606- 3130 Sep, [facility] [id number] [place] [address] 24757- 2971 Sep, Major depressive disorder, single episode, mild F32.0 ; PTSD (post-traumatic stress disorder) F43.10 and Edema of both legs R60.0 [place] [address] [address] August, Localized edema R60.0 [facility] [id number] [place] [address] 54107- 1231 August, Localized edema R60.0 ; Weight gain R63.5 and Irritable bowel syndrome with diarrhea K58.0 [facility] [id number] [place] [address] 49665- 1011 Jul, [place] [id number] [place] [address] 62838- 8217 Jul, Elevated liver enzymes R74.8 [facility] [id number] [place] [address] 49082- 1079 Jul, Polyneuropathy G62.9 [facility] [id number] [place] [address] 29554- 0420 Jul, [facility] [id number] [place] [address] 67700- 8411 Jul, Cervical disc disease M50.90 [facility] [id number] [place] [address] 19137- 0331 Jul, Elevated liver enzymes R74.8 [facility] [id number] [place] [address] 63774- 4127 Jul, Polyneuropathy G62.9 ; Ulcerative pancolitis without complication K51.00 ; Depression F32.9 ; Leg weakness, bilateral R29.898 and Paresthesia of bilateral legs R20.2 [facility] [id number] [place] [address] 42551- 9802 Jul, Polyneuropathy G62.9 ; Ulcerative pancolitis without complication K51.00 ; Depression F32.9 ; Leg weakness, bilateral R29.898 and Paresthesia of bilateral legs R20.2 [place] [id number] [place] [address] 25805- 2997 Jun, [place] [id number] [place] [address] 57416- 4957 Jun, Fibrous breast lumps N63.0 [facility] [id number] [place] [address] 21944- 6787 Jun, Ulcerative pancolitis without complication K51.00 [facility] [id number] [place] [address] 22136- 1955 Jun, Abnormal mammogram R92.8 [facility] [id number] [place] [address] 94706- 7048 Jun, Breast density R92.2 [facility] [facility] [id number] [address] 12[address] Jun, [facility] [id number] [place] [address] 84394- 6248 Jun, PTSD (post-traumatic stress disorder) F43.10 [facility] [id number] [place] [address] 70770- 9852 May, [place] [address] 40900- 8701 May, Breast cancer screening Z12.31 and Fibrous breast lumps N63.0 [facility] [id number] [place] [address] 20127- 6969 Apr, Ulcerative pancolitis without complication K51.00 [facility] [id number] [place] [address] 64688- 2032 Apr, [place] [id number] [place] [address] 82132- 8651 Apr, Ulcerative pancolitis without complication K51.00 ; Low back pain M54.5 and Other chronic pain G89.29 [place] [id number] [place] [address] 99980- 7946 Dec, Cervical disc disease M50.90 and HTN (hypertension) I10 [facility] [id number] [place] [address] 64761- 8827 05 Dec, 2016 Moderate episode of recurrent major depressive disorder F33.1 and PTSD (post-traumatic stress disorder) F43.10 [facility] [id number] [place] [address] 58428- 6704 Oct, [place] [id number] [place] [address] 71038- 7510 Oct, Irritable bowel syndrome with diarrhea K58.0 [facility] [address] [place] [address] 26531- 9308 Oct, Irritable bowel syndrome with diarrhea K58.0 [facility] [facility] [id number] [address] 4[address] Sep, Diarrhea, unspecified type R19.7 ; Chronic pain G89.29 ; Hypertriglyceridemia E78.1 ; PTSD (post-traumatic stress disorder) F43.10 ; History of herniated intervertebral disc Z87.39 and Depression F32.9 [facility] [id number] [place] [address] 19589- 4454 August, Moderate episode of recurrent major depressive disorder F33.1 and PTSD (post-traumatic stress disorder) F43.10 [facility] [id number] [place] [address] 56222- 2517 August, [place] [id number] [place] [address] 93397- 8616 Jul, [place] [id number] [place] [address] 52700- 7394 Jul, PTSD (post-traumatic stress disorder) F43.10 ; IBS ( irritable bowel syndrome) K58.9 ; HTN (hypertension) I10 ; Hypertriglyceridemia E78.1 ; Chronic pain G89.29 ; Anxiety F41.9 ; Depression F32.9 ; COPD (chronic obstructive pulmonary disease) J44.9 ; Irritable bowel syndrome with diarrhea K58.0 and Second degree hemorrhoids K64.1 [place] [id number] [place] [address] 58187- 5166 Jul, PTSD (post-traumatic stress disorder) F43.10 [facility] [id number] [place] [address] 67044- 3336 Jul, [place] [id number] [place] [address] 47596- 3546 Jun, [place] [id number] [place] [address] 21213- 0327 Jun, HTN (hypertension) I10 [facility] [id number] [place] [address] 88318- 3528 May, Depression F32.9 ; Post traumatic stress disorder F43.10 and Screening mammogram, encounter for Z12.31 [place] [id number] [place] [address] 15742- 5488 May, [place] [address] 62775- 5003 09 May, 2016 PTSD (post-traumatic stress disorder) F43.10 and Major depressive disorder in partial remission F32.4 [place] [address] 69161- 0106 02 May, 2016 PTSD (post-traumatic stress disorder) F43.10 ; IBS ( irritable bowel syndrome) K58.9 ; History of herniated intervertebral disc Z87.39 ; Anxiety F41.9 ; Depression F32.9 ; Hypertriglyceridemia E78.1 ; Eczema of both hands L30.9 ; HTN (hypertension) I10 and COPD (chronic obstructive pulmonary disease) J44.9 [place] [address] 84075- 9352 Apr, Major depressive disorder in partial remission F32.4 and PTSD (post-traumatic stress disorder) F43.10 [address] [id number] [place] [address] 55496- 7443 Apr, PTSD (post-traumatic stress disorder) F43.10 [facility] [id number] [place] [address] 66638- 5043 Mar, IBS (irritable bowel syndrome) K58.9 ; PTSD (post-traumatic stress disorder) F43.10 ; COPD (chronic obstructive pulmonary disease) J44.9 ; History of herniated intervertebral disc Z87.39 ; HTN (hypertension) I10 ; Parkinsons G20 ; Annular psoriasis L40.8 and Hypertriglyceridemia E78.1 [place] [id number] [place] [address] 58467- 8279 Feb, [address] [id number] [place] [address] 61857- 3478 15 Nov, 2016 Moderate episode of recurrent major depressive disorder F33.1 and PTSD (post-traumatic stress disorder) F43.10 [place] [id number] [place] [address] 86233- 6889 07 Jan, 2016 Onychocryptosis L60.0 [facility] [id number] [place] [address] 01782- 3746 30 Dec, 2015 [place] [address] 82075- 9465 Dec, Dizziness R42 ; PTSD (post-traumatic stress disorder) F43.10 ; Posttraumatic stress disorder F43.10 ; IBS (irritable bowel syndrome) K58.9 ; History of herniated intervertebral disc Z87.39 ; HTN (hypertension) I10 ; Chronic pain G89.29 and Hypercholesterolemia E78.0 [place] [address] 82025- 1979 Dec, [place] [address] 13946- 9746 Dec, [facility] [address] 37668 -2166 Dec, Annular psoriasis L40.8 [place] [address] 09784- 8643 Nov, [place] [address] 65063- 9540 Nov, [place] [address] 23625- 2157 Nov, HTN (hypertension) I10 ; Chronic pain G89.29 ; Annular psoriasis L40.8 ; IBS (irritable bowel syndrome) K58.9 and Vision changes H53.9 [facility] [address] 72606- 7196 Oct, [facility] [address] 43660- 2440 Oct, IBS (irritable bowel syndrome) K58.9 ; PTSD (post-traumatic stress disorder) F43.10 ; HTN (hypertension) I10 ; Depression F32.9 ; History of herniated intervertebral disc Z87.39 ; Anxiety F41.9 ; Chronic pain G89.29 and Hypercholesterolemia E78.0 [place] [address] [place] [address] 97259- 4031 Oct, Major depressive disorder in partial remission F32.4 and PTSD (post-traumatic stress disorder) F43.10 [place] [id number] [place] [address] 40837- 7975 Oct, IBS (irritable bowel syndrome) K58.9 ; PTSD (post-traumatic stress disorder) F43.10 ; Major depressive disorder, recurrent episode, severe F33.2 ; Anxiety F41.9 and Impacted cerumen, unspecified laterality H61.20 [place] [id number] [place] [address] 04312- 5756 Oct, Major depressive disorder in partial remission F32.4 ; Posttraumatic stress disorder F43.10 and Anxiety F41.9 [facility] [id number] [place] [address] 41408- 5542 Sep, [place] [id number] [place] [address] 86972- 6821 Sep, Anxiety F41.9 ; Major depressive disorder, recurrent episode , mild F33.0 and Posttraumatic stress disorder F43.10 [facility] [id number] [place] [address] 47971- 3579 Sep, [facility] [id number] [place] [address] 80159- 0859 August, [place] [address] 30832- 9182 Jul, Contact dermatitis L25.9 [facility] [id number] [place] [address] 18366- 1293 Jul, Major depressive disorder, recurrent episode, severe F33.2 ; Posttraumatic stress disorder F43.10 and Anxiety F41.9 [facility] [id number] [address]- 3169 Jul, [facility] [id number] [place] [address] 65596- 9136 Jun, IBS (irritable bowel syndrome) K58.9 ; COPD (chronic obstructive pulmonary disease) J44.9 ; HTN (hypertension) I10 ; Chronic pain G89.29 ; Anxiety F41.9 ; PTSD (post-traumatic stress disorder) F43.10 ; Parkinsons G20 and Hypercholesterolemia E78.0 [place] [id number] [place] [address] 06573- 4753 Jun, [place] [id number] [place] [address] 62462- 7143 Jun, Onychocryptosis L60.0 and Onychomycosis B35.1 [facility] [id number] [place] [address] 91776- 3212 May, [facility] [id number] [place] [address] 26221- 4600 May, IBS (irritable bowel syndrome) K58.9 ; COPD (chronic obstructive pulmonary disease) J44.9 ; History of herniated intervertebral disc Z87.39 ; HTN (hypertension) I10 ; Anxiety F41.9 ; Depression F32.9 and Major depressive disorder in partial remission F32.4 [facility] [id number] [place] [address] 69275- 2484 08 May, 2015 IBS (irritable bowel syndrome) K58.9 ; COPD (chronic obstructive pulmonary disease) J44.9 ; History of herniated intervertebral disc Z87.39 ; HTN (hypertension) I10 ; Anxiety F41.9 ; Depression F32.9 and Major depressive disorder in partial remission F32.4 [place] [address] [place] [address] 74835- 2869 May, [place] [id number] [place] [address] 78140- 6624 04 May, 2015 Anxiety F41.9 ; IBS (irritable bowel syndrome) K58.9 and Major depressive disorder in partial remission F32.4 [id number] [place] [address] 19224- 5086 18 Apr, 2015 Encounter for screening mammogram for breast cancer Z12.[address] 73314- 6257 15 Apr, [address] 86349- 8138 Apr, [address] 72825- 3891 Apr, COPD (chronic obstructive pulmonary disease) J44.9 ; HTN ( hypertension) I10 ; Chronic pain G89.29 ; Anxiety F41.9 ; PTSD (post-traumatic stress disorder) F43.10 and IBS (irritable bowel syndrome) K58.9 [address] [id number] [place] [address] 77474- 3848 Apr, PTSD (post-traumatic stress disorder) F43.[address] 17503- 0500 Apr, Onychocryptosis L60.0 and Onychomycosis B35.[address] 15932- 4296 Apr, IBS (irritable bowel syndrome) K58.9 ; COPD (chronic obstructive pulmonary disease) J44.9 ; History of herniated intervertebral disc Z87.39 ; HTN (hypertension) I10 ; Chronic pain G89.29 ; Anxiety F41.9 ; Depression F32.9 ; Parkinsons G20 ; Hypercholesteremia E78.0 and Hemorrhoid K64.9 [place] [id number] [place] [address] 15956- 0994 Mar, [address] 53835- 8566 Mar, Major depressive disorder, recurrent episode, severe F33.2 and Posttraumatic stress disorder F43.10 [facility] [address] [place] [address] 2892 Mar, [facility] [id number] [place] [address] 72257- 7403 Mar, [facility] [id number] [place] [address] 1580 Mar, PTSD (post-traumatic stress disorder) F43.10 [facility] [id number] [place] [address] 9255 Mar, Onychomycosis B35.1 and Hypertension, benign I10 [facility] [id number] [place] [address] 56417- 0301 Mar, Onychomycosis B35.1 and Hypertension, benign I10 [facility] [id number] [place] [address] 03130- 0148 Feb, PTSD (post-traumatic stress disorder) F43.10 [place] [id number] [place] [address] 52054- 5647 Feb, [facility] [address] [place] [address] 45221- 7300 Feb, Major depressive disorder, recurrent episode, severe F33.2 and Posttraumatic stress disorder F43.10 [facility] [address] [place] [address] 10397- 5573 Jan, PTSD (post-traumatic stress disorder) F43.10 [facility] [address] [place] [address] 88552- 2732 Jan, Rash R21 [facility] [id number] [place] [address] 22417- 4275 14 Jan, 2015 PTSD (post-traumatic stress disorder) F43.10 [facility] [id number] [place] [address]- 2546 Jan, [facility] [address] [place] [address] 56974- 4182 Dec, Neuropathy 355.9 [facility] [id number] [place] [address] 82793- 0191 Dec, PTSD (post-traumatic stress disorder) F43.10 [facility] [id number] [place] [address] 274320- 0193 29 Dec, 2014 MDD (major depressive disorder), recurrent episode, severe 296.33 and PTSD (post-traumatic stress disorder) 309.81 [facility] [id number] [place] [address] 968449- 8889 Dec, [facility] [id number] [place] [address] 90672- 1300 Dec, Ingrown toenail 703.0 [facility] [id number] [place] [address] 93850- 8994 Dec, Posttraumatic stress disorder 309.81 [facility] [id number] [place] [address] 21559- 5047 Nov, Depressive disorder, not elsewhere classified 311 and Anxiety state, unspecified 300.00 [facility] [id number] [place] [address] 20468- 5029 Oct, Depressive disorder, not elsewhere classified 311 and Anxiety state, unspecified 300.00 [facility] [address] [place] [address] 26271- 2529 Oct, Depressive disorder, not elsewhere classified 311 ; Anxiety state, unspecified 300.00 and No condition on [place] II V71.09 [facility] [id number] [place] [address] [id number] Oct, Dental examination V72.2 [facility] [id number] [place] [address] 43689- 4641 Oct, [facility] [address] [place] [address]- 8445 August, [facility] [address] [facility] [id number] [address]- 3377 August, Seizure 780.39 and IBS (irritable bowel syndrome) 564.1 [facility] [address] [id number] [place] [address]- 5816 Jul, [facility] [address] [facility] [id number] [place] [address], [place] [address]- 2386 Jul, [facility] [address] [id number] [place] [address]- 5650 Jun, [facility] [address] [id number] [place] [address]- 6945 Jun, [facility] [id number] [place] [address]- 8893 Jun, [facility] [id number] [address]- 5325 Jun, [facility] [id number] [place] [address]- 6983 Jun, [facility] [id number] [address]- 3188 Jun, [facility] [id number] [place] [address]- 6878 Jun, [facility] [address] [facility] [id number] [address]- 3704 Jun, [facility] [address] [facility] [id number] [place] [address]- 1026 Jun, [facility] [address] [facility] [id number] [place] [address]- 4447 Jun, [facility] [address] [facility] [id number] [address]- 5026 2014 [facility] [id number] [address]- 2173 Jun, [facility] [address] [id number] [place] [address]- 6506 May, [facility] [place] [facility] [address] [id number] [place] [address]- 9176 May, [facility] [place] [facility] [address] [facility] [id number] [place] [address]- 8056 Apr, [facility] [place] [facility] [address] [id number] [place] [address]- 7376 Apr, [facility] [place] [facility] [address] [id number] [place] [address]- 6771 Mar, [facility] [place] [facility] [address] [id number] [place] [address]- 0808 Mar, [facility] [address] [id number] [place] [address]- 9555 Mar, [facility] [place] [facility] [address] [id number] [place] [address]- 2170 Mar, [facility] [place] [facility] [address] [id number] [place] [address]- 5848 Mar, [facility] [place] [facility] [address] [facility] [id number] [place] [address]- 3377 Mar, [facility] [place] [facility] [address] [id number] [place] [address]- 7120 Mar, [facility] [place] [facility] [address] [id number] [place] [address] Mar, [facility] [place] [facility] [address] [id number] [place] [address] Mar, [facility] [place] [facility] [address] [id number] [place] [address] Mar, [facility] [place] [facility] [address] [facility] [id number] [place] [address] Mar, [facility] [place] [facility] [address] [id number] [place] [address] Mar, [facility] [place] [facility] [address] [id number] [place] [address] Mar, [facility] [place] [facility] [address] [id number] [place] [address] Mar, [facility] [place] [facility] [address] [id number] [place] [address] Mar, [facility] [place] [facility] [address] [id number] [place] [address] Mar, [facility] [place] [facility] [address] [id number] [place] [address] Mar, [facility] [place] [facility] [address] [id number] [place] [address] Mar, [facility] [place] [facility] [address] [id number] [place] [address] Mar, [facility] [place] [facility] [address] [id number] [place] [address] Feb, [facility] [place] [facility] [address] [id number] [place] [address] 25 Feb, 2014 [facility] [place] [facility] [address] [id number] [place] [address] 18 Feb, 2014 [facility] [place] [facility] [address] [id number] [place] [address] 18 Feb, 2014 [facility] [place] [facility] [address] [id number] [place] [address] 17 Feb, 2014 [facility] [place] [facility] [address] [id number] [place] [address] 17 Feb, 2014 [facility] [place] [facility] [address] [id number] [place] [address] 14 Feb, 2014 [facility] [place] [facility] [address] [id number] [place] [address] Feb, [facility] [place] [facility] [address] [id number] [place] [address] Jan, [facility] [place] [facility] [address] [id number] [place] [address] Jan, [facility] [place] [facility] [address] [id number] [place] [address] Nov, [facility] [place] [facility] [address] [id number] [place] [address] Nov, [facility] [place] [facility] [address] [id number] [place] [address] Oct, [facility] [place] [facility] [address] [id number] [place] [address] Oct, [facility] [place] [facility] [address] [id number] [place] [address] 87[address] Oct, [facility] [place] [facility] [address] [id number] [place] [address] Oct, [facility] [place] [facility] [address] [id number] [place] [address] Oct, [facility] [place] [facility] [address] [id number] [place] [address] Sep, [facility] [place] [facility] [address] [id number] [place] [address] 75[address] Sep, [facility] [place] [facility] [address] [id number] [place] [address] 44[address] August, [facility] [place] [facility] [address] [id number] [place] [address] 94[address] August, [facility] [place] [facility] [address] [id number] [place] [address] Jun, [facility] [place] [facility] [address] [id number] [place] [address] Jun, [facility] [place] [facility] [address] [id number] [place] [address] 11 Jun, 2013 [facility] [place] [facility] [address] [id number] [place] [address]- [address] 11 Jun, 2013 [facility] [place] [facility] [address] [id number] [place] [address] 6969 10 Jun, 2013 [facility] [place] [facility] [address] [id number] [place] [address] 10 Jun, 2013 [facility] [place] [facility] [address] [id number] [place] [address] 07 Jun, 2013 [facility] [place] [facility] [address] [id number] [place] [address] 2812 Jun, [facility] [place] [facility] [address] [id number] [place] [address] 4651 Jun, [facility] [place] [facility] [address] [id number] [place] [address]443 Jun, [facility] [place] [facility] [address] [id number] [place] [address] 8429 Jun, [facility] [place] [facility] [address] [id number] [place] [address] 8510 Jun, [facility] [place] [facility] [address] [id number] [place] [address] 9311 Jun, [facility] [place] [facility] [address] [id number] [place] [address] 8459 Jun, [facility] [place] [facility] [address] [id number] [place] [address] 1613 May, [facility] [place] [facility] [address] [id number] [place] [address]140 May, [facility] [place] [facility] [address] [id number] [place] [address] 8377 Apr, [facility] [place] [facility] [address] [id number] [place] [address] Apr, [facility] [place] [facility] [address] [id number] [place] [address] 65[address] Mar, [facility] [place] [facility] [address] [id number] [place] [address] 6065 Mar, [facility] [place] [facility] [address] [id number] [place] [address] 8989 Feb, [facility] [place] [facility] [address] [id number] [place] [address] Feb, [facility] [place] [facility] [address] [id number] [place] [address] 7810 Feb, [facility] [place] [facility] [address] [id number] [place] [address] 1723 Feb, [facility] [place] [facility] [address] [id number] [place] [address] Feb, [facility] [place] [facility] [address] [id number] [place] [address]287 Feb, [facility] [place] [facility] [address] [id number] [place] [address] 3842 Feb, [facility] [place] [facility] [address] [id number] [place] [address] 4707 Jan, [facility] [place] [facility] [address] [id number] [place] [address] 3911 Jan, [facility] [place] [facility] [address] [id number] [address] 25[address] Dec, [facility] [place] [facility] [address] [id number] [place] [address] 9477 Dec, [facility] [place] [facility] [address] [id number] [place] [address] 2544 Nov, [facility] [place] [facility] [address] [id number], [place] [address]41 Nov, [facility] [place] [facility] [address] [id number], [place] [address] Oct, [facility] [address] [id number] [place] [address] 9708 Sep, [facility] [place] [facility] [address] [id number], [place] [address]4 Sep, [facility] [place] [facility] [address] [facility] [id number] [place] [address] 4140 August, [facility] [place] [facility] [address] [id number], [place] [address] 40[address] August, [facility] [address] [id number] [place] [address] 2921 August, [facility] [place] [facility] [address] [facility] [id number] [place] [address]- 2605 Jul, [facility] [address] [facility] [id number], [place] [address] May, [facility] [place] [facility] [address] [facility] [id number], [place] [address] 1743 May, [facility] [address] [facility] [id number], [place] [address]- 4[address] Apr, [facility] [place] [facility] [address] [facility] [id number], [place] [address] 6658 Apr, [facility] [place] [facility] [address] [facility] [id number] [address]- [address]42 Feb, [facility] [place] [facility] [address] [facility] [id number], [place] [address] 3707 Feb, [facility] [place] [facility] [address] [id number], [place] [address]- 1798 Jan, [facility] [place] [facility] [address] [facility] [id number], [place] [address]- 4[address] Jan, [facility] [place] [facility] [address] [facility] [id number][place] [address]- 7871 Jan, [facility] [place] [facility] [address] [id number] [place] [address]- 4163 Nov, [facility] [place] [facility] [address] [id number] [place] [address]- 3127 Nov, [facility] [place] [facility] [address] [id number] [place] [address]- 4116 Nov, [facility] [place] [facility] [address] [id number] [place] [address]- 8628 Nov, [facility] [place] [facility] [address] [id number] [place] [address]- 7983 Nov, [facility] [place] [facility] [address] [id number] [place] [address]- 8749 Oct, [facility] [place] [facility] [address] [id number] [place] [address]- 5437 Oct, [facility] [place] [facility] [address] [id number] [place] [address]- 5341 Oct, [facility] [place] [facility] [address] [id number] [place] [address]- 5066 Oct, [facility] [place] [facility] [address] [id number] [place] [address]- 5873 Oct, [facility] [place] [facility] [address] [id number] [place] [address]- 1455 Oct, [facility] [place] [facility] [address] [id number] [place] [address]- 0063 Oct, [facility] [place] [facility] [address] [id number] [place] [address]- 8653 Sep, [facility] [place] [facility] [address] [id number] [place] [address]- 2076 Sep, [facility] [place] [facility] [address] [id number] [place] [address]- 8416 Sep, [facility] [place] [facility] [address] [id number] [place] [address]- 2463 August, [facility] [address] [id number] [place] [address]- 6773 30 Jul, 2011 [facility] [place] [facility] [address] [id number] [place] [address]- 3018 Jul, [facility] [place] [facility] [address] [id number] [place] [address]- 0858 Jul, [facility] [place] [facility] [address] [id number] [place] [address]- 3342 16 Jul, 2011 [facility] [address] [id number] [place] [address]- 9434 Jul, [facility] [place] [facility] [address] [id number] [place] [address]- 0066 Jun, [facility] [place] [facility] [address] [id number] [place] [address]- 1973 May, [facility] [place] [facility] [address] [id number] [place] [address]- 2752 Apr, [facility] [place] [facility] [address] [id number] [place] [address]- 9923 Apr, [facility] [place] [facility] [address] [id number] [place] [address]- 6287 Apr, [facility] [place] [facility] [address] [id number] [place] [address]- 5534 Apr, [facility] [place] [facility] [address] [id number] [address]- 1707 Apr, [facility] [place] [facility] [address] [id number] [place] [address]- 7040 Apr, [facility] [place] [facility] [address] [id number] [place] [address]- 5212 Mar, [facility] [place] [facility] [address] [id number] [place] [address]- 8656 Mar, [facility] [place] [facility] [address] [id number] [place] [address]- 6871 08 Feb, 2011 [facility] [place] [facility] [address] [id number] [place] [address]- 8408 10 Nov, 2010 [facility] [place] [facility] [address] [id number] [place] [address]- 4868 Jun, [facility] [place] [facility] [address] [id number] [place] [address]- 0104 14 Apr, 2010 [facility] [place] [facility] [address] [id number] [place] [address]- 7768 Feb, [facility] [place] [facility] [address] [id number] [place] [address]- 2028 Jan, [facility] [place] [facility] [address] [id number] [place] [address]- 1385 Jan, [facility] [place] [facility] [address] [id number] [place] [address]- 2591 Jan, [facility] [place] [facility] [address] [id number] [place] [address]- 7992 Jan, [facility] [place] [facility] [address] [id number] [place] [address]- 0002 Nov, [facility] [place] [facility] [address] [id number] [place] [address]- 4832 Nov, [facility] [place] [facility] [address] [id number] [place] [address]- 3162 Mar, [facility] [place] [facility] [address] [id number] [place] [address]- 4583 Mar, [facility] [place] [facility] [address] [id number] [place] [address]- 6676 Feb, [facility] [place] [facility] [address] [id number] [place] [address] Feb, [facility] [place] [facility] [address] [id number] [place] [address]- 2778 Jan, [facility] [place] [facility] [address] [facility] [id number] [place] [address]- 4611 May, IMMUNIZATIONS No Known Immunizations SOCIAL HISTORY Never Assessed REASON FOR VISIT Swelling/legs mostly the left leg WB-MA PLAN OF CARE VITAL SIGNS Height 64 in 2017-08-28 Weight 166 lbs 2017-08-28 Temperature 97.8 degrees Fahrenheit 2017-08-28 Heart Rate 84 bpm 2017-08-28 Respiratory Rate 20 2017-08-28 BMI 28.49 kg/m2 2017-08-28 Blood pressure systolic 116 mmHg 2017-08-28 Blood pressure diastolic 70 mmHg 2017-08-28 MEDICATIONS Medication Instructions Dosage Frequency Start Date End Date Duration Status Verapamil HCl ER 240 MG Orally Once a day 1 tablet 24h Active Fish Oil 1000 MG Orally Twice a day 2 capsules 12h Jul, August, 30 day(s) Not-Taking Lasix 20 mg Orally Once a day 1 tablet 24h August, 30 day(s) Active Atorvastatin Calcium 10 mg Orally Once a day 1 tablet 24h 10 Apr, 2017 30 day(s) Active Gabapentin 800MG TAKE ONE TABLET BY MOUTH THREE TIMES DAILY Active Parafon Forte DSC 500 mg Orally Three times a day 1 tablet 8h Apr, 30 Active Lomotil 2.5-0.025 MG Orally 2 times a day 1 tablet as needed 12h August, Active Albuterol Sulfate HFA 108 (90 Base) MCG/ACT Inhalation every 6 hrs 2 puffs as needed 6h 18 Jul, 2017 30 days Not-Taking Hydrochlorothiazide 12.5 MG Orally Once a day 1 tablet in the morning 24h 90 days Active Metformin HCl 500 mg Orally 2 times a day 1 tablet with a meal 12h August, Active Naproxen 500 mg Orally every 12 hrs 1 tablet with food or milk as needed 12h Jul, Not-Taking Zocor 20 mg Orally Once a day 1 tablet in the evening 24h 30 days Not-Taking Celexa 20 mg Orally Once a day 1 tablet 24h Apr, Active RESULTS No Results PROCEDURES Procedure Date Ordered Result Body Site [facility]IS[facility] ESTABLISHED PATIENT August 28, 2017 INSTRUCTIONS MEDICATIONS ADMINISTERED No Known Medications [...]
--- OUTSIDE RECORDS SUMMARY | 2018-03-25 15:06 | XMS REPORT ---
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 Name Role Phone NAYA JACKSON Unavailable PROBLEMS Type Condition ICD9-CM Code [id number] Code Onset Dates Condition Status SNOMED Code Problem Hypertriglyceridemia E78.1 Active 931565056 Problem Other chronic pain G89.29 Active 18881702 Problem Cervical disc disease M50.90 Active 786879103 Problem Major depressive disorder, single episode, mild F32.0 Active 12815025 Problem Irritable bowel syndrome with diarrhea K58.0 Active 765889490 Problem Paresthesia of bilateral legs R20.2 Active 230015779 Problem Ulcerative pancolitis without complication K51.00 Active 681723448 Problem Abnormal mammogram R92.8 Active 059633210 Problem Polyneuropathy G62.9 Active 79015380 Problem PTSD (post-traumatic stress disorder) F43.10 Active 06482984 Problem Major depressive disorder, recurrent episode, severe F33.2 Active 247926351075 Problem HTN (hypertension) I10 Active 71156599 Problem Depression F32.9 Active 65386926 Problem Parkinsons G20 Active 33112489 Problem Anxiety F41.9 Active 14876087 Problem COPD (chronic obstructive pulmonary disease) J44.9 Active 54947881 Problem Annular psoriasis L40.8 Active 562235782 ALLERGIES Substance Reaction Event Type Date Status Latex Unknown Drug Allergy August, Active Budesonide rash/swelling Drug Allergy August, Active ENCOUNTERS Encounter Location Date Diagnosis [facility] [address] [facility] [id number] [address] Nov, [facility] [id number], [place] [address] Nov, Irritable bowel syndrome with diarrhea K58.0 and Alopecia L65.9 [facility] [id number], [place] [address] Oct, Chronic diarrhea K52.9 and Acute colitis K52.9 [facility] [id number] [place] [address] 64397- 5943 Oct, Chronic diarrhea K52.9 [facility] [address] [place] [address] 04273- 7034 Oct, Chronic diarrhea K52.9 and Edema of both legs R60.0 [facility] [id number] [place] [address] 58894- 3303 Sep, Medicare annual wellness visit, initial Z00.00 ; Parkinsons G20 ; COPD (chronic obstructive pulmonary disease) J44.9 ; Major depressive disorder, single episode, mild F32.0 ; HTN (hypertension) I10 ; Hypokalemia E87.6 and Adverse effect of carbonic-anhydrase inhibitors, benzothiadiazides and other diuretics, initial encounter T50.2X5A [facility] [id number] [place] [address] 92849- 4877 Sep, Localized edema R60.0 [facility] [place] [id number] [place] [address] 45895- 6661 Sep, [facility] [place] [id number] [place] [address] 71035- 7344 Sep, Major depressive disorder, single episode, mild F32.0 ; PTSD (post-traumatic stress disorder) F43.10 and Edema of both legs R60.0 [facility] [id number] [place] [address] 19679- 9343 August, Localized edema R60.0 [facility] [place] [id number] [place] [address] 60615- 9400 August, Localized edema R60.0 ; Weight gain R63.5 and Irritable bowel syndrome with diarrhea K58.0 [facility] [address] [address] Jul, [facility] [id number] [address] 0945 Jul, Elevated liver enzymes R74.8 [facility] [id number] [place] [address] 22183- 1478 Jul, Polyneuropathy G62.9 [facility] [id number] [place] [address] 80373- 1877 Jul, [facility] [id number] [place] [address] 84457- 6058 Jul, Cervical disc disease M50.90 [facility] [id number] [place] [address] 86149- 8027 Jul, Elevated liver enzymes R74.8 [facility] [id number] [place] [address] 21001- 8861 Jul, Polyneuropathy G62.9 ; Ulcerative pancolitis without complication K51.00 ; Depression F32.9 ; Leg weakness, bilateral R29.898 and Paresthesia of bilateral legs R20.2 [facility] [id number] [place] [address] 12898- 1828 Jul, Polyneuropathy G62.9 ; Ulcerative pancolitis without complication K51.00 ; Depression F32.9 ; Leg weakness, bilateral R29.898 and Paresthesia of bilateral legs R20.2 [place] [address] [place] [address] 79970- 7393 Jun, [place] [address] [place] [address] 19255- 1058 Jun, Fibrous breast lumps N63.0 [facility] [place] [id number] [place] [address] 55840- 2809 Jun, Ulcerative pancolitis without complication K51.00 [facility] [address] [place] [address] 07081- 0453 Jun, Abnormal mammogram R92.8 [facility] [place] [id number] [place] [address] 05383- 9175 Jun, Breast density R92.2 [facility] [place] [id number] [place] [address] 56523- 6121 Jun, [facility] [place] [id number] [place] [address] 29133- 9788 Jun, PTSD (post-traumatic stress disorder) F43.10 [facility] [address] 44619- 3908 May, [facility] [id number] [place] [address] 61871- 8512 May, Breast cancer screening Z12.31 and Fibrous breast lumps N63.0 [facility] [place] [id number] [place] [address] 94112- 0645 Apr, Ulcerative pancolitis without complication K51.00 [facility] [address] 59919- 6290 Apr, [facility] [place] [id number] [place] [address] 57247- 0661 Apr, Ulcerative pancolitis without complication K51.00 ; Low back pain M54.5 and Other chronic pain G89.29 [facility] [place] [id number] [place] [address] 82120- 4989 Dec, Cervical disc disease M50.90 and HTN (hypertension) I10 [facility] [place] [id number] [place] [address] 05179- 9750 05 Dec, 2016 Moderate episode of recurrent major depressive disorder F33.1 and PTSD (post-traumatic stress disorder) F43.10 [facility] [place] [id number] [place] [address] 14349- 9840 Oct, [facility] [place] [id number] [place] [address] 28809- 5885 Oct, Irritable bowel syndrome with diarrhea K58.0 [facility] [place] [address] [place] [address]- 5438 Oct, Irritable bowel syndrome with diarrhea K58.0 [facility] [address] 12639- 7876 Sep, Diarrhea, unspecified type R19.7 ; Chronic pain G89.29 ; Hypertriglyceridemia E78.1 ; PTSD (post-traumatic stress disorder) F43.10 ; History of herniated intervertebral disc Z87.39 and Depression F32.9 [place] [address] 11225- 6614 August, Moderate episode of recurrent major depressive disorder F33.1 and PTSD (post-traumatic stress disorder) F43.10 [facility] [place] [address] 45458- 7243 August, [place] [id number] [place] [address] 96703- 9858 Jul, [address] 19985- 2193 Jul, PTSD (post-traumatic stress disorder) F43.10 ; IBS ( irritable bowel syndrome) K58.9 ; HTN (hypertension) I10 ; Hypertriglyceridemia E78.1 ; Chronic pain G89.29 ; Anxiety F41.9 ; Depression F32.9 ; COPD (chronic obstructive pulmonary disease) J44.9 ; Irritable bowel syndrome with diarrhea K58.0 and Second degree hemorrhoids K64.1 [facility] [id number] [place] [address] 56844- 2088 Jul, PTSD (post-traumatic stress disorder) F43.10 [facility] [id number] [place] [address] 24569- 9457 Jul, [place] [id number] [place] [address] 51710- 7161 Jun, [place] [id number] [place] [address] 43848- 9993 Jun, HTN (hypertension) I10 [place] [address] [place] [address] 32070- 6224 21 May, 2016 Depression F32.9 ; Post traumatic stress disorder F43.10 and Screening mammogram, encounter for Z12.31 [facility] [place] [id number] [place] [address] 08797- 1705 May, [place] [id number] [place] [address] 24357- 0479 May, PTSD (post-traumatic stress disorder) F43.10 and Major depressive disorder in partial remission F32.4 [facility] [id number] [place] [address] 25031- 1458 02 May, 2016 PTSD (post-traumatic stress disorder) F43.10 ; IBS ( irritable bowel syndrome) K58.9 ; History of herniated intervertebral disc Z87.39 ; Anxiety F41.9 ; Depression F32.9 ; Hypertriglyceridemia E78.1 ; Eczema of both hands L30.9 ; HTN (hypertension) I10 and COPD (chronic obstructive pulmonary disease) J44.9 [place] [id number] [place] [address] 65699- 5030 Apr, Major depressive disorder in partial remission F32.4 and PTSD (post-traumatic stress disorder) F43.10 [place] [address] [place] [address] 70855- 9918 Apr, PTSD (post-traumatic stress disorder) F43.10 [facility] [id number] [place] [address] 12936- 0326 Mar, IBS (irritable bowel syndrome) K58.9 ; PTSD (post-traumatic stress disorder) F43.10 ; COPD (chronic obstructive pulmonary disease) J44.9 ; History of herniated intervertebral disc Z87.39 ; HTN (hypertension) I10 ; Parkinsons G20 ; Annular psoriasis L40.8 and Hypertriglyceridemia E78.1 [place] [id number] [place] [address] 37587- 9640 Feb, [place] [id number] [place] [address] 90959- 5905 Feb, Moderate episode of recurrent major depressive disorder F33.1 and PTSD (post-traumatic stress disorder) F43.10 [facility] [id number] [place] [address] 58624- 5850 07 Jan, 2016 Onychocryptosis L60.0 [facility] [address] 90839- 9188 30 Dec, 2015 [place] [address] 01691- 9693 Dec, Dizziness R42 ; PTSD (post-traumatic stress disorder) F43.10 ; Posttraumatic stress disorder F43.10 ; IBS (irritable bowel syndrome) K58.9 ; History of herniated intervertebral disc Z87.39 ; HTN (hypertension) I10 ; Chronic pain G89.29 and Hypercholesterolemia E78.0 [place] [address] 92340- 4315 Dec, [place] [address] 31416- 7587 Dec, [facility] [address] 11616 -2291 Dec, Annular psoriasis L40.8 [place] [id number] [place] [address] 82261- 4539 Nov, [place] [address] 51840- 9632 Nov, [place] [id number] [place] [address] 71068- 9049 Nov, HTN (hypertension) I10 ; Chronic pain G89.29 ; Annular psoriasis L40.8 ; IBS (irritable bowel syndrome) K58.9 and Vision changes H53.9 [place] [id number] [place] [address] 50143- 9415 Oct, [place] [id number] [place] [address] 54226- 1014 Oct, IBS (irritable bowel syndrome) K58.9 ; PTSD (post-traumatic stress disorder) F43.10 ; HTN (hypertension) I10 ; Depression F32.9 ; History of herniated intervertebral disc Z87.39 ; Anxiety F41.9 ; Chronic pain G89.29 and Hypercholesterolemia E78.0 [place] [address] 95005- 8213 Oct, Major depressive disorder in partial remission F32.4 and PTSD (post-traumatic stress disorder) F43.10 [place] [address] 78870- 4982 Oct, IBS (irritable bowel syndrome) K58.9 ; PTSD (post-traumatic stress disorder) F43.10 ; Major depressive disorder, recurrent episode, severe F33.2 ; Anxiety F41.9 and Impacted cerumen, unspecified laterality H61.20 [place] [address] 25159- 6397 Oct, Major depressive disorder in partial remission F32.4 ; Posttraumatic stress disorder F43.10 and Anxiety F41.9 [place] [address] 92561- 2950 Sep, [place] [id number] [place] [address] 91649- 7616 Sep, Anxiety F41.9 ; Major depressive disorder, recurrent episode , mild F33.0 and Posttraumatic stress disorder F43.10 [place] [id number] [place] [address] 11496- 5037 Sep, [place] [address] 58879- 4334 August, [place] [address] 75130- 9205 Jul, Contact dermatitis L25.9 [place] [address] [place] [address]- 9990 Jul, Major depressive disorder, recurrent episode, severe F33.2 ; Posttraumatic stress disorder F43.10 and Anxiety F41.9 [place] [id number] [place] [address] 61545- 2668 Jul, [place] [id number] [place] [address] 62192- 2320 Jun, IBS (irritable bowel syndrome) K58.9 ; COPD (chronic obstructive pulmonary disease) J44.9 ; HTN (hypertension) I10 ; Chronic pain G89.29 ; Anxiety F41.9 ; PTSD (post-traumatic stress disorder) F43.10 ; Parkinsons G20 and Hypercholesterolemia E78.0 [place] [id number] [place] [address] 36067- 3958 Jun, [place] [id number] [place] [address] 82188- 2310 Jun, Onychocryptosis L60.0 and Onychomycosis B35.1 [place] [id number] [place] [address] 05922- 7547 May, [place] [id number] [place] [address] 39926- 9586 May, IBS (irritable bowel syndrome) K58.9 ; COPD (chronic obstructive pulmonary disease) J44.9 ; History of herniated intervertebral disc Z87.39 ; HTN (hypertension) I10 ; Anxiety F41.9 ; Depression F32.9 and Major depressive disorder in partial remission F32.4 [place] [address] [place] [address] 09042- 5779 08 May, 2015 IBS (irritable bowel syndrome) K58.9 ; COPD (chronic obstructive pulmonary disease) J44.9 ; History of herniated intervertebral disc Z87.39 ; HTN (hypertension) I10 ; Anxiety F41.9 ; Depression F32.9 and Major depressive disorder in partial remission F32.4 [place] [id number] [place] [address] 77086- 5700 04 May, 2015 [place] [address] [place] [address] 30268- 6120 04 May, 2015 Anxiety F41.9 ; IBS (irritable bowel syndrome) K58.9 and Major depressive disorder in partial remission F32.4 [place] [id number] [place] [address] 37830- 3081 18 Apr, 2015 Encounter for screening mammogram for breast cancer Z12.31 [facility] [id number] [place] [address] 39185- 5832 15 Apr, [address] 94932- 0416 Apr, [place] [id number] [place] [address] 69726- 1001 Apr, COPD (chronic obstructive pulmonary disease) J44.9 ; HTN ( hypertension) I10 ; Chronic pain G89.29 ; Anxiety F41.9 ; PTSD (post-traumatic stress disorder) F43.10 and IBS (irritable bowel syndrome) K58.9 [place] [id number] [place] [address] 83826- 1776 Apr, PTSD (post-traumatic stress disorder) F43.10 [place] [id number] [place] [address] 95502- 4413 Apr, Onychocryptosis L60.0 and Onychomycosis B35.1 [place] [address] [place] [address] 69979- 0553 Apr, IBS (irritable bowel syndrome) K58.9 ; COPD (chronic obstructive pulmonary disease) J44.9 ; History of herniated intervertebral disc Z87.39 ; HTN (hypertension) I10 ; Chronic pain G89.29 ; Anxiety F41.9 ; Depression F32.9 ; Parkinsons G20 ; Hypercholesteremia E78.0 and Hemorrhoid K64.9 [place] [id number] [place] [address] 53596- 4500 Mar, [facility] [address], [place] [address]- 4226 Mar, Major depressive disorder, recurrent episode, severe F33.2 and Posttraumatic stress disorder F43.10 [facility] [address] [address]- 2216 Mar, [facility] [id number] [place] [address] 72757- 1416 Mar, [facility] [id number] [place] [address] 44457- 5896 Mar, PTSD (post-traumatic stress disorder) F43.10 [place] [id number] [place] [address] 66758- 4486 Mar, Onychomycosis B35.1 and Hypertension, benign I10 [facility] [id number] [place] [address] 75231- 1106 Mar, Onychomycosis B35.1 and Hypertension, benign I10 [facility] [address] [place] [address] 501464- 9695 Feb, PTSD (post-traumatic stress disorder) F43.10 [place] [address] [address]- 0613 Feb, [facility] [address], [place] [address]- 0912 Feb, Major depressive disorder, recurrent episode, severe F33.2 and Posttraumatic stress disorder F43.10 [facility] [address] 2926 Jan, PTSD (post-traumatic stress disorder) F43.10 [facility] [address] [address] 4116 Jan, Rash R21 [facility] [id number] [place] [address] 10123- 5836 Jan, PTSD (post-traumatic stress disorder) F43.10 [facility] [address], [place] [address]- 0642 Jan, [facility] [address] [place] [address] 40361- 6172 Dec, Neuropathy 355.9 [facility] [id number] [place] [address] 11563- 8896 30 Dec, 2014 PTSD (post-traumatic stress disorder) F43.10 [facility] [address] [place] [address] 73795- 5466 29 Dec, 2014 MDD (major depressive disorder), recurrent episode, severe 296.33 and PTSD (post-traumatic stress disorder) 309.81 [facility] [address] [place] [address] 83721- 3510 23 Dec, 2014 [facility] [id number] [place] [address] 98733- 5254 Dec, Ingrown toenail 703.0 [facility] [address] [place] [address] 16089- 8006 02 Dec, 2014 Posttraumatic stress disorder 309.81 [facility] [id number] [place] [address] 25419- 0995 Nov, Depressive disorder, not elsewhere classified 311 and Anxiety state, unspecified 300.00 [facility] [address] [place] [address] 86852- 4440 Oct, Depressive disorder, not elsewhere classified 311 and Anxiety state, unspecified 300.00 [facility] [address], [place] [address]- 8350 16 Oct, 2014 Depressive disorder, not elsewhere classified 311 ; Anxiety state, unspecified 300.00 and No condition on Cecil II V71.09 [facility] [id number] [address] 13 Oct, 2014 Dental examination V72.2 [facility] [id number] [address]- 1113 Oct, [facility] [id number], [place] [address]- 9304 August, [facility] [address], [place] [address]- 2618 August, Seizure 780.39 and IBS (irritable bowel syndrome) 564.1 [facility] [id number] [place] [address] 51575- 6806 Jul, [facility] [address] [facility] [id number] [place] [address]- 2308 Jul, [facility] [id number] [place] [address]- 8519 Jun, [facility] [id number] [address]- 6742 Jun, [facility] [id number], [place] [address]- 9456 Jun, [facility] [id number] [place] [address]- 2323 Jun, [facility] [id number], [place] [address]- 3441 Jun, [facility] [id number], [place] [address]- 7816 Jun, [facility] [place] [facility] [id number] [address]- 9546 Jun, [facility] [place] [facility] [address] [facility] [id number] [place] [address]- 1616 Jun, [facility] [place] [facility] [address] [facility] [id number] [place] 1746 Jun, [facility] [place] [facility] [address] [facility] [id number] [address]- 5788 Jun, [facility] [place] [facility] [id number], [place] [address]- 5930 Jun, [facility] [address] [id number] [place] [address]- 5033 Jun, [facility] [place] [facility] [address] [id number] [place] 0746 May, [facility] [place] [facility] [address] [id number] [place] [address]- 0169 May, [facility] [place] [facility] [address] [id number] [place] [address]- 4194 Apr, [facility] [place] [facility] [address] [id number] [place] [address]- 6180 Apr, [facility] [place] [facility] [address] [id number] [place] [address]- 6276 Mar, [facility] [address] [id number] [place] [address]- 4515 Mar, [facility] [place] [facility] [address] [id number] [place] [address]- 8139 Mar, [facility] [place] [facility] [address] [id number] [place] [address] Mar, [facility] [place] [facility] [address] [id number] [place] [address] Mar, [facility] [place] [facility] [address] [id number] [place] [address] Mar, [facility] [place] [facility] [address] [id number] [place] [address] Mar, [facility] [place] [facility] [address] [id number] [place] [address] Mar, [facility] [place] [facility] [address] [id number] [place] [address] Mar, [facility] [place] [facility] [address] [id number] [place] [address] Mar, [facility] [place] [facility] [address] [id number] [place] [address] Mar, [facility] [place] [facility] [address] [id number] [place] [address] Mar, [facility] [place] [facility] [address] [id number] [place] [address] Mar, [facility] [place] [facility] [address] [id number] [place] [address] Mar, [facility] [place] [facility] [address] [id number] [place] [address] Mar, [facility] [place] [facility] [address] [id number] [place] [address] Mar, [facility] [place] [facility] [address] [id number] [place] [address] Mar, [facility] [place] [facility] [address] [id number] [place] [address] Mar, [facility] [place] [facility] [address] [id number] [place] [address] Mar, [facility] [place] [facility] [address] [id number] [place] [address] Feb, [facility] [place] [facility] [address] [id number] [place] [address] Feb, [facility] [place] [facility] [address] [id number] [place] [address] 18 Feb, 2014 [facility] [place] [facility] [address] [id number] [place] [address] 18 Feb, 2014 [facility] [place] [facility] [address] [id number] [place] [address] 17 Feb, 2014 [facility] [place] [facility] [address] [id number] [place] 17 Feb, 2014 [facility] [place] [facility] [address] [id number] [place] [address] Feb, [facility] [place] [facility] [address] [id number] [place] [address] 3868 14 Feb, 2014 [facility] [place] [facility] [address] [id number] [place] [address] 2013 15 Jan, 2014 [facility] [place] [facility] [address] [id number] [place] [address] 1618 15 Jan, 2014 [facility] [place] [facility] [address] [id number] [place] [address]666 Nov, [facility] [place] [facility] [address] [id number] [place] [address] Nov, [facility] [place] [facility] [address] [id number] [place] [address] 8114 Oct, [facility] [place] [facility] [address] [id number] [place] [address] Oct, [facility] [place] [facility] [address] [id number] [place] [address] 8987 Oct, [facility] [place] [facility] [address] [id number] [place] [address] 4069 Oct, [facility] [place] [facility] [address] [id number] [place] [address] 8084 Oct, [facility] [place] [facility] [address] [id number] [place] [address] 4139 Sep, [facility] [place] [facility] [address] [id number], [place] [address] Sep, [facility] [place] [facility] [address] [id number] [place] [address] 3535 August, [facility] [place] [facility] [address] [id number] [place] [address] 0218 August, [facility] [place] [facility] [address] [id number] [place] [address] 3999 Jun, [facility] [place] [facility] [address] [id number] [place] [address]- 6417 24 Jun, 2013 [facility] [place] [facility] [address] [id number] [place] [address]- 1144 11 Jun, 2013 [facility] [place] [facility] [address] [id number] [place] [address]- 1028 11 Jun, 2013 [facility] [place] [facility] [address] [id number] [place] [address]- 9154 10 Jun, 2013 [facility] [place] [facility] [address] [id number] [place] [address]- 9190 10 Jun, 2013 [facility] [place] [facility] [address] [id number] [place] [address]- 2592 07 Jun, 2013 [facility] [place] [facility] [address] [id number] [place] [address]- 9523 07 Jun, 2013 [facility] [place] [facility] [address] [id number] [place] [address]- 9209 07 Jun, 2013 [facility] [place] [facility] [address] [id number] [place] [address]- 6132 07 Jun, 2013 [facility] [place] [facility] [address] [id number] [place] [address]- 5005 04 Jun, 2013 [facility] [place] [facility] [address] [id number] [place] [address]- 7771 04 Jun, 2013 [facility] [place] [facility] [address] [id number] [place] [address]- 5992 Jun, [facility] [place] [facility] [address] [id number] [place] [address]- 2362 Jun, [facility] [place] [facility] [address] [id number] [place] [address] 6800 May, [facility] [place] [facility] [address] [id number] [place] [address] 4619 May, [facility] [place] [facility] [address] [id number] [place] [address]- 4393 Apr, [facility] [place] [facility] [address] [id number] [place] [address]- 9927 Apr, [facility] [place] [facility] [address] [id number] [place] [address]- 1028 Mar, [facility] [place] [facility] [address] [id number] [place] [address] 9025 Mar, [facility] [place] [facility] [address] [id number] [place] [address] 3372 Feb, [facility] [place] [facility] [address] [id number] [place] [address] 7229 Feb, [facility] [place] [facility] [address] [id number] [place] [address]- 7366 Feb, [facility] [place] [facility] [address] [id number] [place] [address]- 8639 Feb, [facility] [place] [facility] [address] [id number] [place] [address]- 7278 Feb, [facility] [place] [facility] [address] [id number] [place] [address]- 5529 Feb, [facility] [place] [facility] [address] [id number] [place] [address]- 1875 Feb, [facility] [place] [facility] [address] [id number] [place] [address] 5728 Jan, [facility] [place] [facility] [address] [id number], [place] [address] 1874 Jan, [facility] [place] [facility] [address] [id number] [place] [address]- 3994 Dec, [facility] [place] [facility] [address] [id number], [place] [address] 39[address] Dec, [facility] [place] [facility] [address] [id number], [place] [address] 6139 Nov, [facility] [place] [facility] [address] [id number], [place] [address] 7055 Nov, [facility] [address] [id number] [place] [address]- 7924 Oct, [facility] [place] [facility] [address] [id number], [place] [address]337 Sep, [facility] [place] [facility] [address] [facility] [id number] [place] [address]- 5244 Sep, [facility] [place] [facility] [address] [id number], [place] [address] 56[address] August, [facility] [place] [facility] [address] [id number] [place] [address] 2319 August, [facility] [place] [facility] [address] [facility] [id number] [place] [address]- 1697 August, [facility] [address] [facility] [id number] [place] [address]- 8180 Jul, [facility] [place] [facility] [address] [facility] [id number] [place] [address] 8350 May, [facility] [address] [facility] [id number] [place] [address]- 1047 May, [facility] [place] [facility] [address] [facility] [id number] [place] [address]- 7169 Apr, [facility] [place] [facility] [address] [facility] [id number], [place] [address]- 0666 Apr, [facility] [place] [facility] [address] [facility] [id number], [place] [address]- 5433 Feb, [facility] [place] [facility] [address] [id number], [place] [address]- 1270 Feb, [facility] [place] [facility] [address] [facility] [id number], [place] [address]- 5343 Jan, [facility] [place] [facility] [address] [facility] [id number], [place] [address]- 0612 Jan, [facility] [place] [facility] [address] [id number] [place] [address]- 7249 Jan, [facility] [place] [facility] [address] [id number] [place] [address]- 0377 Nov, [facility] [place] [facility] [address] [id number] [place] [address]- 2246 Nov, [facility] [place] [facility] [address] [id number] [place] [address]- 1546 Nov, [facility] [place] [facility] [address] [id number] [place] [address]- 8003 Nov, [facility] [place] [facility] [address] [id number] [place] [address]- 3617 Nov, [facility] [place] [facility] [address] [id number] [place] [address]- 6538 Oct, [facility] [place] [facility] [address] [id number] [place] [address]- 4855 Oct, [facility] [place] [facility] [address] [id number] [place] [address]- 2777 Oct, [facility] [place] [facility] [address] [id number] [place] [address]- 6184 Oct, [facility] [place] [facility] [address] [id number] [place] [address]- 3760 Oct, [facility] [place] [facility] [address] [id number] [place] [address]- 2482 Oct, [facility] [place] [facility] [address] [id number] [place] [address]- 3860 Oct, [facility] [place] [facility] [address] [id number] [place] [address]- 8033 Sep, [facility] [place] [facility] [address] [id number] [place] [address]- 4501 Sep, [facility] [place] [facility] [address] [id number] [place] [address]- 3724 Sep, [facility] [address] [id number] [place] [address]- 1070 August, [facility] [place] [facility] [address] [id number] [place] [address]- 3954 Jul, [facility] [place] [facility] [address] [id number] [place] [address]- 1354 Jul, [facility] [place] [facility] [address] [id number] [place] [address]- 4892 Jul, [facility] [place] [facility] [address] [id number] [place] [address]- 6262 Jul, [facility] [place] [facility] [address] [id number] [place] [address]- 5064 Jul, [facility] [place] [facility] [address] [id number] [place] [address]- 7183 Jun, [facility] [place] [facility] [address] [id number] [place] [address]- 2973 May, [facility] [place] [facility] [address] [id number] [place] [address]- 1853 Apr, [facility] [place] [facility] [address] [id number] [place] [address]- 3127 Apr, [facility] [place] [facility] [address] [id number], [place] [address]- 4232 Apr, [facility] [place] [facility] [address] [id number], [place] [address]- 3298 Apr, [facility] [place] [facility] [address] [id number] [place] [address]- 5969 Apr, [facility] [place] [facility] [address] [id number], [place] [address]- 2783 Apr, [facility] [place] [facility] [address] [id number] [place] [address]- 2400 Mar, [facility] [place] [facility] [address] [id number] [place] [address] 06 Mar, 2011 [facility] [place] [facility] [address] [id number] [place] [address]- 3578 Feb, [facility] [place] [facility] [address] [id number] [place] [address]- 9717 Nov, [facility] [place] [facility] [address] [id number] [place] [address] Jun, [facility] [place] [facility] [address] [id number] [place] [address]- 1877 Apr, [facility] [place] [facility] [address] [id number] [place] [address]- 5176 Feb, [facility] [place] [facility] [address] [id number] [place] [address]- 4202 Jan, [facility] [place] [facility] [address] [id number] [place] [address]- 6524 Jan, [facility] [place] [facility] [address] [id number] [place] [address]- 3545 Jan, [facility] [place] [facility] [address] [id number] [place] [address]- 6489 Jan, [facility] [place] [facility] [address] [id number] [place] [address]- 2456 Nov, [facility] [place] [facility] [address] [id number] [place] [address]- 6639 Nov, [facility] [place] [facility] [address] [id number] [place] [address]- 3278 Mar, [facility] [place] [facility] [address] [id number] [place] [address] Mar, [facility] [place] [facility] [address] [id number] [place] [address]- 0615 Feb, [facility] [place] [facility] [address] [id number] [place] [address]- 1933 Feb, [facility] [address] [facility] [id number] [place] [address]- 7605 Jan, [facility] [address] [facility] [id number][place] [id number]- [address] May, IMMUNIZATIONS No Known Immunizations SOCIAL HISTORY Never Assessed REASON FOR VISIT Left foot/ankle pain WB-MA PLAN OF CARE VITAL SIGNS Height 64 in 2017-09-04 Temperature 97.6 degrees Fahrenheit 2017-09-04 Heart Rate 82 bpm 2017-09-04 Respiratory Rate 20 2017-09-04 Blood pressure systolic 126 mmHg 2017-09-04 Blood pressure diastolic 74 mmHg 2017-09-04 MEDICATIONS Medication Instructions Dosage Frequency Start Date End Date Duration Status Parafon Forte DSC 500 mg Orally Three times a day 1 tablet 8h Apr, 30 Active Lomotil 2.5-0.025 MG Orally 2 times a day 1 tablet as needed 12h August, Active Lasix 20 mg Orally Once a day 1 tablet 24h August, 30 day(s) Active Verapamil HCl ER 240 MG Orally Once a day 1 tablet 24h Active Gabapentin 800MG TAKE ONE TABLET BY MOUTH THREE TIMES DAILY Active Zocor 20 mg Orally Once a day 1 tablet in the evening 24h 30 days Not-Taking Hydrochlorothiazide 12.5 MG Orally Once a day 1 tablet in the morning 24h 90 days Active Atorvastatin Calcium 10 mg Orally Once a day 1 tablet 24h 10 Apr, 2017 30 day(s) Active Celexa 20 mg Orally Once a day 1 tablet 24h Apr, Active Fish Oil 1000 MG Orally Twice a day 2 capsules 12h Jul, August, 30 day(s) Not-Taking Metformin HCl 500 mg Orally 2 times a day 1 tablet with a meal 12h August, Active Albuterol Sulfate HFA 108 (90 Base) MCG/ACT Inhalation every 6 hrs 2 puffs as needed 6h 18 Jul, 2017 30 days Not-Taking Naproxen 500 mg Orally every 12 hrs 1 tablet with food or milk as needed 12h Jul, Not-Taking RESULTS No Results PROCEDURES Procedure Date Ordered Result Body Site [facility] VISIT ESTABLISHED PATIENT September 04, 2017 INSTRUCTIONS MEDICATIONS ADMINISTERED No Known Medications [...]
--- OUTSIDE RECORDS SUMMARY | 2018-03-25 15:07 | XMS REPORT ---
Author Author NAYA JACKSON Organization [facility] Address [address] [place] [address] Care Team Providers Care Demand Generation Manager Name Role Phone NAYA JACKSON Unavailable PROBLEMS Type Condition ICD9-CM Code CJA49-ZJ Code Onset Dates Condition Status SNOMED Code Problem Hypertriglyceridemia E78.1 Active 681574486 Problem Other chronic pain G89.29 Active 41777282 Problem Cervical disc disease M50.90 Active 808138537 Problem Major depressive disorder, single episode, mild F32.0 Active 18680482 Problem Irritable bowel syndrome with diarrhea K58.0 Active 375140968 Problem Paresthesia of bilateral legs R20.2 Active 184914976 Problem Ulcerative pancolitis without complication K51.00 Active 343602516 Problem Abnormal mammogram R92.8 Active 195021786 Problem Polyneuropathy G62.9 Active 82099343 Problem PTSD (post-traumatic stress disorder) F43.10 Active 35622534 Problem Major depressive disorder, recurrent episode, severe F33.2 Active 228329498238 Problem HTN (hypertension) I10 Active 62065936 Problem Depression F32.9 Active 16709955 Problem Parkinsons G20 Active 08605995 Problem Anxiety F41.9 Active 27205178 Problem COPD (chronic obstructive pulmonary disease) J44.9 Active 13843868 Problem Annular psoriasis L40.8 Active 009407805 ALLERGIES No Information ENCOUNTERS Encounter Location Date Diagnosis [facility] [id number], [place] [address] Nov, [facility] [address], [place] [address] Oct, Chronic diarrhea K52.9 and Acute colitis K52.9 [facility] [id number], [place] [address] Oct, Chronic diarrhea K52.9 [facility] [id number] [place] [address] 24268- 0557 Oct, Chronic diarrhea K52.9 and Edema of both legs R60.0 [place] [facility] [id number] [place] [address] 64012- 9951 Sep, Medicare annual wellness visit, initial Z00.00 ; Parkinsons G20 ; COPD (chronic obstructive pulmonary disease) J44.9 ; Major depressive disorder, single episode, mild F32.0 ; HTN (hypertension) I10 ; Hypokalemia E87.6 and Adverse effect of carbonic-anhydrase inhibitors, benzothiadiazides and other diuretics, initial encounter T50.2X5A [place] [id number] [place] [address] 29872- 9657 Sep, Localized edema R60.0 [place] [id number] [place] [address] 75871- 0451 Sep, [place] [facility] [id number] [place] [address] 01605- 2940 Sep, Major depressive disorder, single episode, mild F32.0 ; PTSD (post-traumatic stress disorder) F43.10 and Edema of both legs R60.0 [place] [id number] [place] [address] 54717- 2106 August, Localized edema R60.0 [place] [facility] [id number] [place] [address] 53976- 8240 August, Localized edema R60.0 ; Weight gain R63.5 and Irritable bowel syndrome with diarrhea K58.0 [place] [id number] [place] [address] 45183- 2458 Jul, [place] [id number] [place] [address] 98934- 0854 Jul, Elevated liver enzymes R74.8 [place] [id number] [place] [address] 43877- 7532 Jul, Polyneuropathy G62.9 [place] [id number] [place] [address] 13284- 1602 Jul, [place] [id number] [place] [address] 60879- 0755 Jul, Cervical disc disease M50.90 [place] [id number] [place] [address] 48696- 3972 Jul, Elevated liver enzymes R74.8 [place] [id number] [place] [address] 63384- 7105 Jul, Polyneuropathy G62.9 ; Ulcerative pancolitis without complication K51.00 ; Depression F32.9 ; Leg weakness, bilateral R29.898 and Paresthesia of bilateral legs R20.2 [place] [id number] [place] [address] 19642- 4271 Jul, Polyneuropathy G62.9 ; Ulcerative pancolitis without complication K51.00 ; Depression F32.9 ; Leg weakness, bilateral R29.898 and Paresthesia of bilateral legs R20.2 [place] [id number] [place] [address] 03749- 9363 Jun, [place] [id number] [place] [address] 91356- 3870 Jun, Fibrous breast lumps N63.0 [place] [id number] [place] [address] 87459- 5426 Jun, Ulcerative pancolitis without complication K51.00 [place] [id number] [place] [address] 22918- 9710 Jun, Abnormal mammogram R92.8 [place] [id number] [place] [address] 24013- 4983 Jun, Breast density R92.2 [place] [id number] [place] [address] 17603- 1836 Jun, [place] [id number] [place] [address] 73532- 0472 Jun, PTSD (post-traumatic stress disorder) F43.10 [place] [id number] [place] [address] 55698- 3088 May, [place] [id number] [place] [address] 06111- 8610 May, Breast cancer screening Z12.31 and Fibrous breast lumps N63.0 [place] [id number] [place] [address] 03242- 1419 Apr, Ulcerative pancolitis without complication K51.00 [place] [id number] [place] [address] 80963- 1962 Apr, [place] [id number] [place] [address] 68123- 6265 Apr, Ulcerative pancolitis without complication K51.00 ; Low back pain M54.5 and Other chronic pain G89.29 [place] [id number] [place] [address] 41855- 7763 Dec, Cervical disc disease M50.90 and HTN (hypertension) I10 [place] [id number] [place] [address] 01907- 6096 05 Dec, 2016 Moderate episode of recurrent major depressive disorder F33.1 and PTSD (post-traumatic stress disorder) F43.10 [place] [id number] [place] [address] 43592- 6941 Oct, [place] [id number] [place] [address] 63929- 3819 Oct, Irritable bowel syndrome with diarrhea K58.0 [address] [id number] [place] [address] 10330- 9660 07 Oct, 2016 Irritable bowel syndrome with diarrhea K58.0 [place] [id number] [place] [address] 70540- 4350 16 Sep, 2016 Diarrhea, unspecified type R19.7 ; Chronic pain G89.29 ; Hypertriglyceridemia E78.1 ; PTSD (post-traumatic stress disorder) F43.10 ; History of herniated intervertebral disc Z87.39 and Depression F32.9 [place] [id number] [place] [address] 78011- 9758 August, Moderate episode of recurrent major depressive disorder F33.1 and PTSD (post-traumatic stress disorder) F43.10 [place] [address] 10432- 7843 August, [place] [address] 19391- 8290 Jul, [address] 69611- 6691 Jul, PTSD (post-traumatic stress disorder) F43.10 ; IBS ( irritable bowel syndrome) K58.9 ; HTN (hypertension) I10 ; Hypertriglyceridemia E78.1 ; Chronic pain G89.29 ; Anxiety F41.9 ; Depression F32.9 ; COPD (chronic obstructive pulmonary disease) J44.9 ; Irritable bowel syndrome with diarrhea K58.0 and Second degree hemorrhoids K64.1 [place] [address] 47461- 3500 Jul, PTSD (post-traumatic stress disorder) F43.10 [place] [id number] [place] [address] 45354- 9804 Jul, [place] [id number] [place] [address] 95817- 1404 Jun, [place] [id number] [place] [address] 48156- 3380 Jun, HTN (hypertension) I10 [address] 14577- 8509 May, Depression F32.9 ; Post traumatic stress disorder F43.10 and Screening mammogram, encounter for Z12.[address] 95564- 2127 May, [place] [id number] [place] [address] 29608- 9813 May, PTSD (post-traumatic stress disorder) F43.10 and Major depressive disorder in partial remission F32.4 [place] [id number] [place] [address] 88248- 1530 May, PTSD (post-traumatic stress disorder) F43.10 ; IBS ( irritable bowel syndrome) K58.9 ; History of herniated intervertebral disc Z87.39 ; Anxiety F41.9 ; Depression F32.9 ; Hypertriglyceridemia E78.1 ; Eczema of both hands L30.9 ; HTN (hypertension) I10 and COPD (chronic obstructive pulmonary disease) J44.9 [place] [address] [place] [address] 55572- 1989 Apr, Major depressive disorder in partial remission F32.4 and PTSD (post-traumatic stress disorder) F43.10 [place] [address] [place] [address] 12441- 8471 Apr, PTSD (post-traumatic stress disorder) F43.10 [place] [id number] [place] [address] 25161- 3944 Mar, IBS (irritable bowel syndrome) K58.9 ; PTSD (post-traumatic stress disorder) F43.10 ; COPD (chronic obstructive pulmonary disease) J44.9 ; History of herniated intervertebral disc Z87.39 ; HTN (hypertension) I10 ; Parkinsons G20 ; Annular psoriasis L40.8 and Hypertriglyceridemia E78.1 [place] [place] [address] 81244- 3328 Feb, [place] [id number] [place] [address] 37171- 8775 Feb, Moderate episode of recurrent major depressive disorder F33.1 and PTSD (post-traumatic stress disorder) F43.10 [place] [id number] [place] [address] 96856- 6788 Jan, Onychocryptosis L60.0 [facility] [id number] [place] [address] 42372- 3952 Dec, [facility] [address] 63020- 8503 Dec, Dizziness R42 ; PTSD (post-traumatic stress disorder) F43.10 ; Posttraumatic stress disorder F43.10 ; IBS (irritable bowel syndrome) K58.9 ; History of herniated intervertebral disc Z87.39 ; HTN (hypertension) I10 ; Chronic pain G89.29 and Hypercholesterolemia E78.0 [place] [address] 40188- 3924 Dec, [facility] [address] 50411- 1347 Dec, [facility] [address] 08253 -3651 Dec, Annular psoriasis L40.8 [facility] [address] 08899- 7679 Nov, [place] [address] 65867- 7214 Nov, [place] [id number] [place] [address] 01929- 0042 Nov, HTN (hypertension) I10 ; Chronic pain G89.29 ; Annular psoriasis L40.8 ; IBS (irritable bowel syndrome) K58.9 and Vision changes H53.9 [facility] [id number] [place] [address] 92015- 6789 Oct, [facility] [address] 65869- 7548 Oct, IBS (irritable bowel syndrome) K58.9 ; PTSD (post-traumatic stress disorder) F43.10 ; HTN (hypertension) I10 ; Depression F32.9 ; History of herniated intervertebral disc Z87.39 ; Anxiety F41.9 ; Chronic pain G89.29 and Hypercholesterolemia E78.0 [place] [id number] [place] [address] 97063- 8187 Oct, Major depressive disorder in partial remission F32.4 and PTSD (post-traumatic stress disorder) F43.10 [place] [id number] [place] [address] 00127- 0505 Oct, IBS (irritable bowel syndrome) K58.9 ; PTSD (post-traumatic stress disorder) F43.10 ; Major depressive disorder, recurrent episode, severe F33.2 ; Anxiety F41.9 and Impacted cerumen, unspecified laterality H61.20 [place] [id number] [place] [address] 62403- 4764 Oct, Major depressive disorder in partial remission F32.4 ; Posttraumatic stress disorder F43.10 and Anxiety F41.9 [place] [address] 76264- 3391 Sep, [place] [address] 78535- 2429 Sep, Anxiety F41.9 ; Major depressive disorder, recurrent episode , mild F33.0 and Posttraumatic stress disorder F43.10 [place] [id number] [place] [address] 55279- 1398 Sep, [place] [id number] [place] [address] 29839- 9350 August, [place] [id number] [place] [address] 73825- 9481 Jul, Contact dermatitis L25.9 [place] [address] 32373- 7175 Jul, Major depressive disorder, recurrent episode, severe F33.2 ; Posttraumatic stress disorder F43.10 and Anxiety F41.9 [place] [id number] [place] [address] 23824- 6121 Jul, [place] [address] [place] [address] 59260- 4582 Jun, IBS (irritable bowel syndrome) K58.9 ; COPD (chronic obstructive pulmonary disease) J44.9 ; HTN (hypertension) I10 ; Chronic pain G89.29 ; Anxiety F41.9 ; PTSD (post-traumatic stress disorder) F43.10 ; Parkinsons G20 and Hypercholesterolemia E78.0 [id number] [place] [address] 31537- 3304 Jun, [place] [id number] [place] [address] 35703- 7571 Jun, Onychocryptosis L60.0 and Onychomycosis B35.1 [place] [id number] [place] [address] 91388- 8327 May, [address] [id number] [place] [address] 42290- 6596 May, IBS (irritable bowel syndrome) K58.9 ; COPD (chronic obstructive pulmonary disease) J44.9 ; History of herniated intervertebral disc Z87.39 ; HTN (hypertension) I10 ; Anxiety F41.9 ; Depression F32.9 and Major depressive disorder in partial remission F32.4 [place] [id number] [place] [address] 66297- 6534 08 May, 2015 IBS (irritable bowel syndrome) K58.9 ; COPD (chronic obstructive pulmonary disease) J44.9 ; History of herniated intervertebral disc Z87.39 ; HTN (hypertension) I10 ; Anxiety F41.9 ; Depression F32.9 and Major depressive disorder in partial remission F32.4 [place] [id number] [place] [address] 14330- 4549 May, [place] [id number] [place] [address] 45371- 4545 04 May, 2015 Anxiety F41.9 ; IBS (irritable bowel syndrome) K58.9 and Major depressive disorder in partial remission F32.4 [place] [address], [place] [address]- 7694 18 Apr, 2015 Encounter for screening mammogram for breast cancer Z12.31 [place] [id number] [place] [address] 54246- 6209 15 Apr, 2015 [place] [id number] [place] [address] 54024- 6265 11 Apr, 2015 [place] [id number] [place] [address] 16964- 0278 Apr, COPD (chronic obstructive pulmonary disease) J44.9 ; HTN ( hypertension) I10 ; Chronic pain G89.29 ; Anxiety F41.9 ; PTSD (post-traumatic stress disorder) F43.10 and IBS (irritable bowel syndrome) K58.9 [address] [id number] [place] [address] 25754- 6052 Apr, PTSD (post-traumatic stress disorder) F43.10 [place] [id number] [place] [address] 44627- 4650 08 Apr, 2015 Onychocryptosis L60.0 and Onychomycosis B35.[address] [place] [address] 19504- 4582 04 Apr, 2015 IBS (irritable bowel syndrome) K58.9 ; COPD (chronic obstructive pulmonary disease) J44.9 ; History of herniated intervertebral disc Z87.39 ; HTN (hypertension) I10 ; Chronic pain G89.29 ; Anxiety F41.9 ; Depression F32.9 ; Parkinsons G20 ; Hypercholesteremia E78.0 and Hemorrhoid K64.9 [place] [id number] [place] [address] 25251- 6523 Mar, [id number] [place] [address] 87530- 9251 Mar, Major depressive disorder, recurrent episode, severe F33.2 and Posttraumatic stress disorder F43.10 [address] [address] 2546 Mar, [facility] [address] [place] [address] 70470 2546 Mar, [facility] [address] [place] [address] 45796 2546 Mar, PTSD (post-traumatic stress disorder) F43.10 [facility] [id number] [place] [address] 83299 2546 Mar, Onychomycosis B35.1 and Hypertension, benign I10 [facility] [id number] [place] [address] 01345 2546 Mar, Onychomycosis B35.1 and Hypertension, benign I10 [facility] [id number] [place] [address] 24606 2546 Feb, PTSD (post-traumatic stress disorder) F43.10 [facility] [address], [place] [address] 2546 Feb, [facility] [address] [place] [address] 29299 2546 Feb, Major depressive disorder, recurrent episode, severe F33.2 and Posttraumatic stress disorder F43.10 [facility] [address], [place] [address] 2546 Jan, PTSD (post-traumatic stress disorder) F43.10 [facility] [address], [place] [address] 2546 Jan, Rash R21 [facility] [address] [place] [address] 02770 2546 Jan, PTSD (post-traumatic stress disorder) F43.10 [facility] [address], [place] [address] 2546 Jan, [facility] [address] [place] [address] 68550988- 6457 Dec, Neuropathy 355.9 [facility] [address] [place] [address] 99033- 4583 30 Dec, 2014 PTSD (post-traumatic stress disorder) F43.10 [facility] [address] [place] [address] 88411- 6568 29 Dec, 2014 MDD (major depressive disorder), recurrent episode, severe 296.33 and PTSD (post-traumatic stress disorder) 309.81 [facility] [id number] [place] [address] 66984- 1340 Dec, [facility] [id number] [place] [address] 82511- 2668 Dec, Ingrown toenail 703.0 [facility] [id number] [place] [address] 04861- 1801 Dec, Posttraumatic stress disorder 309.81 [facility] [id number] [place] [address] 18411- 2504 Nov, Depressive disorder, not elsewhere classified 311 and Anxiety state, unspecified 300.00 [facility] [id number] [place] [address] 96265- 2929 Oct, Depressive disorder, not elsewhere classified 311 and Anxiety state, unspecified 300.00 [facility] [id number] [place] [address] 75222- 6241 Oct, Depressive disorder, not elsewhere classified 311 ; Anxiety state, unspecified 300.00 and No condition on [place] II V71.09 [facility] [id number] [id number] Oct, Dental examination V72.2 [facility] [id number] [place] [address] 29508- 0102 Oct, [facility] [address] [place] [address] 45712- 3629 August, [facility] [id number] [place] [address] 19054- 8677 August, Seizure 780.39 and IBS (irritable bowel syndrome) 564.1 [facility] [id number] [place] [address]- 1886 14 Jul, 2014 [facility] [address] [facility] [id number] [place] [address]- 9006 Jul, [facility] [id number] [place] [address], [place] [address]- 0476 Jun, [facility] [address] [facility] [id number] [place] [address], [place] [address]- 7642 Jun, [facility] [id number] [place] [address], [place] [address]- 5670 Jun, [facility] [id number] [place] [address]- 6823 Jun, [facility] [id number] [place] [address], [place] [address]- 5004 Jun, [facility] [id number] [place] [address]- 3527 Jun, [facility] [address] [place] [address]- 0414 Jun, [facility] [id number] [place] [address]- 8638 Jun, [facility] [id number] [place] [address]- 9403 Jun, [facility] [address] [facility] [id number] [address]- 6623 Jun, [facility] [id number] [place] [address]- 3456 Jun, [facility] [id number] [place] [address]- 6156 Jun, [facility] [address] 7272 May, [facility] [address] [id number] [place] [address]- 9420 May, [facility] [place] [facility] [address] [id number] [place] [address]- 4395 Apr, [facility] [place] [facility] [address] [id number] [place] [address]- 7500 Apr, [facility] [place] [facility] [address] [id number] [place] [address]- 1849 Mar, [facility] [place] [facility] [address] [id number] [place] [address]- 9247 Mar, [facility] [place] [facility] [address] [id number] [place] [address]- 0451 Mar, [facility] [place] [facility] [address] [id number] [place] [address]- 0708 Mar, [facility] [place] [facility] [address] [id number] [place] [address]- 5549 Mar, [facility] [place] [facility] [address] [id number] [place] [address]- 8470 Mar, [facility] [place] [facility] [address] [id number] [place] [address]- 9211 Mar, [facility] [place] [facility] [address] [id number] [place] [address]- 9961 Mar, [facility] [place] [facility] [address] [id number] [place] [address]- 7992 Mar, [facility] [place] [facility] [address] [id number] [place] [address]- 5838 Mar, [facility] [place] [facility] [address] [id number] [place] [address]- 7530 Mar, [facility] [place] [facility] [address] [id number] [place] [address]- 7232 Mar, [facility] [place] [facility] [address] [id number] [place] [address] 03 Mar, 2014 [facility] [place] [facility] [address] [id number] [place] [address] Mar, [facility] [place] [facility] [address] [id number] [place] [address] Mar, [facility] [place] [facility] [address] [id number] [place] [address] Mar, [facility] [place] [facility] [address] [id number] [place] [address] Mar, [facility] [place] [facility] [address] [id number] [place] [address] Mar, [facility] [place] [facility] [address] [id number] [place] [address] Mar, [facility] [place] [facility] [address] [id number] [place] [address] Feb, [facility] [place] [facility] [address] [id number] [place] [address] 25 Feb, 2014 [facility] [place] [facility] [address] [id number] [place] [address]- [address] Feb, [facility] [place] [facility] [address] [facility] [id number] [place] [address] 18 Feb, 2014 [facility] [place] [facility] [address] [id number] [place] [address] 17 Feb, 2014 [facility] [place] [facility] [address] [id number] [address] 17 Feb, 2014 [facility] [place] [facility] [address] [id number] [place] [address] 14 Feb, 2014 [facility] [place] [facility] [address] [id number] [place] [address] 14 Feb, 2014 [facility] [place] [facility] [address] [facility] [id number] [place] [address] 15 Jan, 2014 [facility] [place] [facility] [address] [id number] [place] [address] Jan, [facility] [place] [facility] [address] [id number] [place] [address] Nov, [facility] [place] [facility] [address] [id number] [place] [address] Nov, [facility] [place] [facility] [address] [id number] [place] [address] Oct, [facility] [place] [facility] [address] [id number] [place] [address] Oct, [facility] [place] [facility] [address] [id number] [place] [address] 150[address] Oct, [facility] [place] [facility] [address] [id number] [place] [address] Oct, [facility] [place] [facility] [address] [id number] [place] [address] Oct, [facility] [place] [facility] [address] [id number] [place] [address] Sep, [facility] [place] [facility] [address] [id number] [place] [address] Sep, [facility] [place] [facility] [address] [id number] [place] [address] August, [facility] [place] [facility] [address] [id number] [place] [address]557 August, [facility] [place] [facility] [address] [id number] [place] [address] Jun, [facility] [place] [facility] [address] [id number] [place] [address] Jun, [facility] [place] [facility] [address] [id number] [place] [address] 39[address] Jun, [facility] [place] [facility] [address] [id number] [place] [address]- [address] 11 Jun, 2013 [facility] [place] [facility] [address] [id number] [place] [address]- [address]85 10 Jun, 2013 [facility] [place] [facility] [address] [id number] [place] [address]- 1441 10 Jun, 2013 [facility] [place] [facility] [address] [id number] [place] [address]- 0441 Jun, [facility] [place] [facility] [address] [id number] [place] [address] 4979 Jun, [facility] [place] [facility] [address] [id number] [place] [address] 8237 Jun, [facility] [place] [facility] [address] [id number] [place] [address] 9388 Jun, [facility] [place] [facility] [address] [id number] [place] [address]994 Jun, [facility] [place] [facility] [address] [id number] [place] [address] 8864 Jun, [facility] [place] [facility] [address] [id number] [place] [address] Jun, [facility] [place] [facility] [address] [id number] [place] [address]- 7014 Jun, [facility] [place] [facility] [address] [id number] [place] [address] 59[address] May, [facility] [place] [facility] [address] [id number] [place] [address] 98[address] May, [facility] [place] [facility] [address] [id number] [place] [address] 6469 Apr, [facility] [place] [facility] [address] [id number] [place] [address]- 6568 Apr, [facility] [place] [facility] [address] [id number] [place] [address] 85[address] Mar, [facility] [place] [facility] [address] [id number] [place] [address] 2542 Mar, [facility] [address] [id number] [place] [address] Feb, [facility] [place] [facility] [address] [id number] [place] [address]- 0731 Feb, [facility] [address] [id number] [place] [address] 3708 Feb, [facility] [place] [facility] [address] [id number] [place] [address]- 2669 Feb, [facility] [address] [id number] [place] [address] 3146 Feb, [facility] [place] [facility] [address] [id number] [place] [address]- 0755 Feb, [facility] [place] [facility] [address] [id number] [place] [address] 6005 Feb, [facility] [address] [id number] [place] [address]- 5[address] Jan, [facility] [place] [facility] [address] [id number] [place] [address] 6699 Jan, [facility] [address] [id number] [place] [address]- 9299 Dec, [facility] [place] [facility] [address] [id number] [place] [address]- 4838 Dec, [facility] [place] [facility] [address] [id number] [place] [address] 9749 Nov, [facility] [place] [facility] [address] [id number] [place] [address]- 4569 Nov, [facility] [place] [facility] [address] [id number] [place] [address]- 2546 Oct, [facility] [place] [facility] [address] [id number] [place] [address]- 8288 Sep, [facility] [address] [id number] [place] [address] 3197 Sep, [facility] [place] [facility] [address] [id number] [place] [address]- 6218 August, [facility] [place] [facility] [address] [id number] [place] [address] 6793 August, [facility] [place] [facility] [address] [id number] [place] [address]- 2501 August, [facility] [address] [id number] [place] [address]- 5921 Jul, [facility] [place] [facility] [address] [id number] [place] [address]- 5074 May, [facility] [place] [facility] [address] [id number] [place] [address]- 8739 May, [facility] [place] [facility] [address] [id number], [place] [address] Apr, [facility] [place] [facility] [address] [id number] [place] [address]- 2862 Apr, [facility] [place] [facility] [address] [id number], [place] [address] Feb, [facility] [place] [facility] [address] [id number] [place] [address]- 4310 Feb, [facility] [place] [facility] [address] [id number], [place] [address] Jan, [facility] [place] [facility] [address] [id number] [place] [address]- 6737 Jan, [facility] [place] [facility] [address] [id number] [place] [address]- 0477 Jan, [facility] [place] [facility] [address] [id number] [place] [address]- 1716 Nov, [facility] [place] [facility] [address] [id number] [place] [address]- 0897 Nov, [facility] [place] [facility] [address] [id number] [place] [address]- 6935 Nov, [facility] [place] [facility] [address] [id number] [place] [address]- 2128 Nov, [facility] [place] [facility] [address] [id number] [place] [address]- 2618 Nov, [facility] [place] [facility] [address] [id number] [place] [address]- 8393 Oct, [facility] [place] [facility] [address] [id number] [place] [address]- 2838 Oct, [facility] [place] [facility] [address] [id number] [place] [address]- 7505 Oct, [facility] [place] [facility] [address] [id number] [place] [address]- 5705 Oct, [facility] [place] [facility] [address] [id number] [place] [address]- 5361 Oct, [facility] [place] [facility] [address] [id number] [place] [address]- 6498 Oct, [facility] [place] [facility] [address] [id number] [place] [address]- 6658 Oct, [facility] [place] [facility] [address] [id number] [place] [address]- 6657 Sep, [facility] [place] [facility] [address] [id number] [place] [address]- 2577 Sep, [facility] [place] [facility] [address] [id number] [place] [address]- 0562 Sep, [facility] [place] [facility] [address] [id number] [place] [address]- 4667 August, [facility] [place] [facility] [address] [id number] [place] [address]- 5656 Jul, [facility] [place] [facility] [address] [id number] [place] [address]- 2056 28 Jul, 2011 [facility] [address] [id number] [place] [address]- 0742 27 Jul, 2011 [facility] [place] [facility] [address] [id number] [place] [address]- 9568 16 Jul, 2011 [facility] [place] [facility] [address] [id number] [place] [address]- 9886 13 Jul, 2011 [facility] [place] [facility] [address] [id number] [place] [address]- 6000 Jun, [facility] [place] [facility] [address] [id number] [place] [address]- 3591 May, [facility] [place] [facility] [address] [id number] [place] [address]- 2137 Apr, [facility] [address] [id number] [place] [address]- 2322 Apr, [facility] [place] [facility] [address] [id number] [place] [address]- 4992 Apr, [facility] [address] [id number] [place] [address]- 8354 Apr, [facility] [place] [facility] [address] [id number] [place] [address]- 8794 Apr, [facility] [place] [facility] [address] [id number] [place] [address]- 5347 Apr, [facility] [place] [facility] [address] [id number] [place] [address]- 2686 Mar, [facility] [place] [facility] [address] [id number] [place] [address]- 4466 Mar, [facility] [place] [facility] [address] [id number] [place] [address]- 5571 Feb, [facility] [place] [facility] [address] [id number], [place] [address]- 6376 Nov, [facility] [address] [facility] [id number] [place] [address]- 3707 Jun, [facility] [address] [facility] [id number], [place] [address]- 4064 Apr, [facility] [address] [facility] [id number], [place] [address]- 3870 Feb, [facility] [address] [id number], [place] [address]- 5195 Jan, [facility] [address] [facility] [id number] [place] [address]- 9284 Jan, [facility] [address] [facility] [id number], [place] [address]- 5056 Jan, [facility] [address] [facility] [id number], [place] [address]- 2435 Jan, [facility] [address] [facility] [id number], [place] [address]- 8574 Nov, [facility] [address] [facility] [id number], [place] [address]- 0753 Nov, [facility] [address] [facility] [id number], [place] [address]- 7158 Mar, [facility] [address] [facility] [id number], [place] [address]- 9764 Mar, [facility] [address] [facility] [id number], [place] [address]- 6138 Feb, [facility] [address] [facility] [id number][place] [address]64 Feb, [facility] [address] [facility] [id number][place] [address] Jan, [facility] [address] [facility] [id number], [place] [address]- 6311 10 May, 2008 IMMUNIZATIONS No Known Immunizations SOCIAL HISTORY Never Assessed REASON FOR VISIT FYI only PLAN OF CARE VITAL SIGNS MEDICATIONS Unknown [...]
--- OUTSIDE RECORDS SUMMARY | 2018-03-25 15:08 | XMS REPORT ---
Author Author NAYA JACKSON Organization [facility] Address [address] [place] [address] Care Team Providers Care Office Runner Name Role Phone NAYA JACKSON Unavailable PROBLEMS Type Condition ICD9-CM Code [id number] Code Onset Dates Condition Status SNOMED Code Problem Hypertriglyceridemia E78.1 Active 779448548 Problem Other chronic pain G89.29 Active 83894962 Problem Cervical disc disease M50.90 Active 934963913 Problem Major depressive disorder, single episode, mild F32.0 Active 97574911 Problem Irritable bowel syndrome with diarrhea K58.0 Active 721890433 Problem Paresthesia of bilateral legs R20.2 Active 337917480 Problem Ulcerative pancolitis without complication K51.00 Active 869686102 Problem Abnormal mammogram R92.8 Active 264497702 Problem Polyneuropathy G62.9 Active 89187754 Problem PTSD (post-traumatic stress disorder) F43.10 Active 76424068 Problem Major depressive disorder, recurrent episode, severe F33.2 Active 740348003818 Problem HTN (hypertension) I10 Active 53880177 Problem Depression F32.9 Active 85312630 Problem Parkinsons G20 Active 47189519 Problem Anxiety F41.9 Active 67512375 Problem COPD (chronic obstructive pulmonary disease) J44.9 Active 43625336 Problem Annular psoriasis L40.8 Active 112650914 ALLERGIES No Information ENCOUNTERS Encounter Location Date Diagnosis [facility] [id number], [place] [address] Nov, [facility] [address], [place] [address] Oct, Chronic diarrhea K52.9 and Acute colitis K52.9 [facility] [id number], [place] [address] Oct, Chronic diarrhea K52.9 [facility] [id number] [place] [address] 41511- 3258 Oct, Chronic diarrhea K52.9 and Edema of both legs R60.0 [address] [id number] [place] [address] 75273- 4184 Sep, Medicare annual wellness visit, initial Z00.00 ; Parkinsons G20 ; COPD (chronic obstructive pulmonary disease) J44.9 ; Major depressive disorder, single episode, mild F32.0 ; HTN (hypertension) I10 ; Hypokalemia E87.6 and Adverse effect of carbonic-anhydrase inhibitors, benzothiadiazides and other diuretics, initial encounter T50.2X5A [id number] [place] [address] 36113- 4818 Sep, Localized edema R60.0 [address] [facility] [id number] [place] [address] 09913- 7952 Sep, [address] [facility] [id number] [place] [address] 38697- 6194 Sep, Major depressive disorder, single episode, mild F32.0 ; PTSD (post-traumatic stress disorder) F43.10 and Edema of both legs R60.0 [id number] [place] [address] 60484- 1156 August, Localized edema R60.0 [address] [facility] [id number] [place] [address] 74101- 9116 August, Localized edema R60.0 ; Weight gain R63.5 and Irritable bowel syndrome with diarrhea K58.0 [address] [place] [id number] [place] [address] 46402- 9462 Jul, [address] [id number] [place] [address] 80369- 0674 Jul, Elevated liver enzymes R74.8 [address] [place] [address] 99373- 7345 Jul, Polyneuropathy G62.9 [address] [facility] [id number] [place] [address] 11052- 6362 Jul, [address] [facility] [id number] [place] [address] 84199- 9850 Jul, Cervical disc disease M50.90 [address] [facility] [id number] [place] [address] 06994- 3645 Jul, Elevated liver enzymes R74.8 [address] [facility] [id number] [place] [address] 13516- 7244 Jul, Polyneuropathy G62.9 ; Ulcerative pancolitis without complication K51.00 ; Depression F32.9 ; Leg weakness, bilateral R29.898 and Paresthesia of bilateral legs R20.2 [address] [id number] [place] [address] 47179- 7684 Jul, Polyneuropathy G62.9 ; Ulcerative pancolitis without complication K51.00 ; Depression F32.9 ; Leg weakness, bilateral R29.898 and Paresthesia of bilateral legs R20.2 [address] [id number] [place] [address] 38009- 5451 Jun, [address] [id number] [place] [address] 20422- 0171 Jun, Fibrous breast lumps N63.0 [address] [id number] [place] [address] 35181- 2934 Jun, Ulcerative pancolitis without complication K51.00 [address] [place] [address] 93074- 4797 Jun, Abnormal mammogram R92.8 [address] [place] [id number] [place] [address] 11513- 0217 Jun, Breast density R92.2 [address] [id number] [place] [address] 32637- 6812 Jun, [address] [id number] [place] [address] 13280- 4053 Jun, PTSD (post-traumatic stress disorder) F43.10 [address] [id number] [place] [address] 91244- 3375 May, [address] [facility] [id number] [place] [address] 01664- 4631 May, Breast cancer screening Z12.31 and Fibrous breast lumps N63.0 [address] [id number] [place] [address] 33439- 9629 Apr, Ulcerative pancolitis without complication K51.00 [address] [id number] [place] [address] 06317- 0060 Apr, [address] [id number] [place] [address] 97348- 7226 Apr, Ulcerative pancolitis without complication K51.00 ; Low back pain M54.5 and Other chronic pain G89.29 [address] [id number] [place] [address] 87834- 7228 Dec, Cervical disc disease M50.90 and HTN (hypertension) I10 [address] [place] [id number] [place] [address] 75655- 5848 05 Dec, 2016 Moderate episode of recurrent major depressive disorder F33.1 and PTSD (post-traumatic stress disorder) F43.10 [address] [place] [id number] [place] [address] 45115- 5764 Oct, [address] [id number] [place] [address] 95172- 5549 Oct, Irritable bowel syndrome with diarrhea K58.0 [id number] [place] [address] 73015- 2397 07 Oct, 2016 Irritable bowel syndrome with diarrhea K58.0 [address] [id number] [place] [address] 41639- 0788 16 Sep, 2016 Diarrhea, unspecified type R19.7 ; Chronic pain G89.29 ; Hypertriglyceridemia E78.1 ; PTSD (post-traumatic stress disorder) F43.10 ; History of herniated intervertebral disc Z87.39 and Depression F32.9 [address] [id number] [place] [address] 89470- 9154 August, Moderate episode of recurrent major depressive disorder F33.1 and PTSD (post-traumatic stress disorder) F43.10 [address] 23739- 8278 August, [place] 69041- 9112 Jul, [address] 8[address]42- 7680 Jul, PTSD (post-traumatic stress disorder) F43.10 ; IBS ( irritable bowel syndrome) K58.9 ; HTN (hypertension) I10 ; Hypertriglyceridemia E78.1 ; Chronic pain G89.29 ; Anxiety F41.9 ; Depression F32.9 ; COPD (chronic obstructive pulmonary disease) J44.9 ; Irritable bowel syndrome with diarrhea K58.0 and Second degree hemorrhoids K64.1 [address] 64641- 1968 Jul, PTSD (post-traumatic stress disorder) F43.10 [place] [id number] [place] [address] 58479- 5793 Jul, [place] [id number] [place] [address] 65916- 6372 Jun, [place] [id number] [place] [address] 48206- 7477 Jun, HTN (hypertension) I10 [address] 16199- 4356 May, Depression F32.9 ; Post traumatic stress disorder F43.10 and Screening mammogram, encounter for Z12.[address] 98393- 5071 May, [place] [id number] [place] [address] 38502- 2739 May, PTSD (post-traumatic stress disorder) F43.10 and Major depressive disorder in partial remission F32.4 [id number] [place] [address] 33351- 6167 May, PTSD (post-traumatic stress disorder) F43.10 ; IBS ( irritable bowel syndrome) K58.9 ; History of herniated intervertebral disc Z87.39 ; Anxiety F41.9 ; Depression F32.9 ; Hypertriglyceridemia E78.1 ; Eczema of both hands L30.9 ; HTN (hypertension) I10 and COPD (chronic obstructive pulmonary disease) J44.9 [address] [place] [address] 99725- 5242 Apr, Major depressive disorder in partial remission F32.4 and PTSD (post-traumatic stress disorder) F43.10 [address] [place] [address] 69879- 5471 Apr, PTSD (post-traumatic stress disorder) F43.10 [address] [id number] [place] [address] 64568- 1768 Mar, IBS (irritable bowel syndrome) K58.9 ; PTSD (post-traumatic stress disorder) F43.10 ; COPD (chronic obstructive pulmonary disease) J44.9 ; History of herniated intervertebral disc Z87.39 ; HTN (hypertension) I10 ; Parkinsons G20 ; Annular psoriasis L40.8 and Hypertriglyceridemia E78.1 [address] [place] [address] 51447- 5088 Feb, [id number] [place] [address] 61364- 2929 Feb, Moderate episode of recurrent major depressive disorder F33.1 and PTSD (post-traumatic stress disorder) F43.10 [address] [id number] [place] [address] 54159- 7329 Jan, Onychocryptosis L60.0 [facility] [id number] [place] [address] 16638- 3246 Dec, [facility] [address] 75301- 2342 Dec, Dizziness R42 ; PTSD (post-traumatic stress disorder) F43.10 ; Posttraumatic stress disorder F43.10 ; IBS (irritable bowel syndrome) K58.9 ; History of herniated intervertebral disc Z87.39 ; HTN (hypertension) I10 ; Chronic pain G89.29 and Hypercholesterolemia E78.0 [address] 85645- 3268 Dec, [facility] [address] 02987- 6694 Dec, [facility] [address] 58124 -7782 Dec, Annular psoriasis L40.8 [facility] [address] 26448- 9815 Nov, [address] 50556- 0752 Nov, [address] [id number] [place] [address] 43328- 5365 Nov, HTN (hypertension) I10 ; Chronic pain G89.29 ; Annular psoriasis L40.8 ; IBS (irritable bowel syndrome) K58.9 and Vision changes H53.9 [facility] [id number] [place] [address] 42661- 1468 Oct, [facility] [address] 70380- 4402 Oct, IBS (irritable bowel syndrome) K58.9 ; PTSD (post-traumatic stress disorder) F43.10 ; HTN (hypertension) I10 ; Depression F32.9 ; History of herniated intervertebral disc Z87.39 ; Anxiety F41.9 ; Chronic pain G89.29 and Hypercholesterolemia E78.0 [address] [id number] [place] [address] 54863- 9788 Oct, Major depressive disorder in partial remission F32.4 and PTSD (post-traumatic stress disorder) F43.10 [address] [id number] [place] [address] 99794- 7686 Oct, IBS (irritable bowel syndrome) K58.9 ; PTSD (post-traumatic stress disorder) F43.10 ; Major depressive disorder, recurrent episode, severe F33.2 ; Anxiety F41.9 and Impacted cerumen, unspecified laterality H61.20 [address] [id number] [place] [address] 14393- 5695 Oct, Major depressive disorder in partial remission F32.4 ; Posttraumatic stress disorder F43.10 and Anxiety F41.9 [address] [place] 56680- 9097 Sep, [place] [address] 94013- 1309 Sep, Anxiety F41.9 ; Major depressive disorder, recurrent episode , mild F33.0 and Posttraumatic stress disorder F43.10 [address] [id number] [place] [address] 30314- 5867 Sep, [place] [id number] [place] [address] 46484- 6209 August, [address] [id number] [place] [address] 21526- 4484 Jul, Contact dermatitis L25.9 [address] [place] 09922- 9701 Jul, Major depressive disorder, recurrent episode, severe F33.2 ; Posttraumatic stress disorder F43.10 and Anxiety F41.9 [address] [id number] [place] [address] 28856- 5840 Jul, [address] [place] [address] 19993- 8010 Jun, IBS (irritable bowel syndrome) K58.9 ; COPD (chronic obstructive pulmonary disease) J44.9 ; HTN (hypertension) I10 ; Chronic pain G89.29 ; Anxiety F41.9 ; PTSD (post-traumatic stress disorder) F43.10 ; Parkinsons G20 and Hypercholesterolemia E78.0 [id number] [place] [address] 91245- 4747 Jun, [address] [id number] [place] [address] 43875- 5734 Jun, Onychocryptosis L60.0 and Onychomycosis B35.1 [address] [id number] [place] [address] 37389- 4323 May, [id number] [place] [address] 42814- 4950 May, IBS (irritable bowel syndrome) K58.9 ; COPD (chronic obstructive pulmonary disease) J44.9 ; History of herniated intervertebral disc Z87.39 ; HTN (hypertension) I10 ; Anxiety F41.9 ; Depression F32.9 and Major depressive disorder in partial remission F32.4 [address] [id number] [place] [address] 54090- 8441 08 May, 2015 IBS (irritable bowel syndrome) K58.9 ; COPD (chronic obstructive pulmonary disease) J44.9 ; History of herniated intervertebral disc Z87.39 ; HTN (hypertension) I10 ; Anxiety F41.9 ; Depression F32.9 and Major depressive disorder in partial remission F32.4 [address] [id number] [place] [address] 68926- 9052 May, [address] [id number] [place] [address] 58830- 9855 04 May, 2015 Anxiety F41.9 ; IBS (irritable bowel syndrome) K58.9 and Major depressive disorder in partial remission F32.4 [address], [place] [address]- 9961 18 Apr, 2015 Encounter for screening mammogram for breast cancer Z12.31 [id number] [place] [address] 91783- 4304 15 Apr, 2015 [id number] [place] [address] 84977- 1753 11 Apr, 2015 [address] [id number] [place] [address] 40363- 6036 Apr, COPD (chronic obstructive pulmonary disease) J44.9 ; HTN ( hypertension) I10 ; Chronic pain G89.29 ; Anxiety F41.9 ; PTSD (post-traumatic stress disorder) F43.10 and IBS (irritable bowel syndrome) K58.9 [id number] [place] [address] 88308- 2858 Apr, PTSD (post-traumatic stress disorder) F43.10 [address] [id number] [place] [address] 17642- 6363 08 Apr, 2015 Onychocryptosis L60.0 and Onychomycosis B35.[address] [place] [address] 11119- 2007 04 Apr, 2015 IBS (irritable bowel syndrome) K58.9 ; COPD (chronic obstructive pulmonary disease) J44.9 ; History of herniated intervertebral disc Z87.39 ; HTN (hypertension) I10 ; Chronic pain G89.29 ; Anxiety F41.9 ; Depression F32.9 ; Parkinsons G20 ; Hypercholesteremia E78.0 and Hemorrhoid K64.9 [address] [id number] [place] [address] 24353- 4755 Mar, [id number] [place] [address] 23229- 8038 Mar, Major depressive disorder, recurrent episode, severe F33.2 and Posttraumatic stress disorder F43.10 [address] [place] [address] 2546 Mar, [facility] [address] [place] [address] 48861 2546 Mar, [facility] [address] [place] [address] 80689 2546 Mar, PTSD (post-traumatic stress disorder) F43.10 [facility] [id number] [place] [address] 63744 2546 Mar, Onychomycosis B35.1 and Hypertension, benign I10 [facility] [id number] [place] [address] 68547 2546 Mar, Onychomycosis B35.1 and Hypertension, benign I10 [facility] [id number] [place] [address] 50720 2546 Feb, PTSD (post-traumatic stress disorder) F43.10 [facility] [address], [place] [address] 2546 Feb, [facility] [address] [place] [address] 84908 2546 Feb, Major depressive disorder, recurrent episode, severe F33.2 and Posttraumatic stress disorder F43.10 [facility] [address], [place] [address] 2546 Jan, PTSD (post-traumatic stress disorder) F43.10 [facility] [address], [place] [address] 2546 Jan, Rash R21 [facility] [address] [place] [address] 81447 2546 Jan, PTSD (post-traumatic stress disorder) F43.10 [facility] [address], [place] [address] 2546 Jan, [facility] [address] [place] [address] 35778256- 8918 Dec, Neuropathy 355.9 [facility] [address] [place] [address] 37789- 7935 30 Dec, 2014 PTSD (post-traumatic stress disorder) F43.10 [facility] [address] [place] [address] 51880- 6056 29 Dec, 2014 MDD (major depressive disorder), recurrent episode, severe 296.33 and PTSD (post-traumatic stress disorder) 309.81 [facility] [id number] [place] [address] 12073- 2872 Dec, [facility] [id number] [place] [address] 36781- 6507 Dec, Ingrown toenail 703.0 [facility] [id number] [place] [address] 23258- 4811 Dec, Posttraumatic stress disorder 309.81 [facility] [id number] [place] [address] 25662- 4342 Nov, Depressive disorder, not elsewhere classified 311 and Anxiety state, unspecified 300.00 [facility] [id number] [place] [address] 80930- 5766 Oct, Depressive disorder, not elsewhere classified 311 and Anxiety state, unspecified 300.00 [facility] [id number] [place] [address] 52823- 8449 Oct, Depressive disorder, not elsewhere classified 311 ; Anxiety state, unspecified 300.00 and No condition on [place] II V71.09 [facility] [id number] [id number] Oct, Dental examination V72.2 [facility] [id number] [place] [address] 94957- 8654 Oct, [facility] [address] [place] [address] 48434- 3067 August, [facility] [id number] [place] [address] 05966- 6856 August, Seizure 780.39 and IBS (irritable bowel syndrome) 564.1 [facility] [place] [id number] [place] [address]- 6066 14 Jul, 2014 [facility] [address] [facility] [id number] [place] [address]- 5676 Jul, [facility] [id number] [place] [address], [place] [address]- 7346 Jun, [facility] [address] [facility] [id number] [place] [address], [place] [address]- 7645 Jun, [facility] [id number] [place] [address], [place] [address]- 7507 Jun, [facility] [id number] [place] [address]- 7346 Jun, [facility] [id number] [place] [address], [place] [address]- 6645 Jun, [facility] [id number] [place] [address]- 8289 Jun, [facility] [id number] [place] [address]- 3375 Jun, [facility] [id number] [place] [address]- 9828 Jun, [facility] [id number] [place] [address]- 3396 Jun, [facility] [address] [facility] [id number] [address]- 6011 Jun, [facility] [id number] [place] [address]- 6966 Jun, [facility] [id number] [place] [address]- 6366 Jun, [facility] [address] 1449 May, [facility] [address] [id number] [place] [address]- 6214 May, [facility] [place] [facility] [address] [id number] [place] [address]- 4616 Apr, [facility] [place] [facility] [address] [id number] [place] [address]- 6534 Apr, [facility] [place] [facility] [address] [id number] [place] [address]- 2153 Mar, [facility] [place] [facility] [address] [id number] [place] [address] Mar, [facility] [place] [facility] [address] [id number] [place] [address] Mar, [facility] [place] [facility] [address] [id number] [place] [address] Mar, [facility] [place] [facility] [address] [id number] [place] [address] Mar, [facility] [place] [facility] [address] [id number] [place] [address] Mar, [facility] [place] [facility] [address] [id number] [place] [address] Mar, [facility] [place] [facility] [address] [id number] [place] [address] Mar, [facility] [place] [facility] [address] [id number] [place] [address] Mar, [facility] [place] [facility] [address] [id number] [place] [address] Mar, [facility] [place] [facility] [address] [id number] [place] [address] Mar, [facility] [place] [facility] [address] [id number] [place] [address] Mar, [facility] [place] [facility] [address] [id number] [place] [address] 03 Mar, 2014 [facility] [place] [facility] [address] [id number] [place] [address] Mar, [facility] [place] [facility] [address] [id number] [place] [address] Mar, [facility] [place] [facility] [address] [id number] [place] [address] Mar, [facility] [place] [facility] [address] [id number] [place] [address] Mar, [facility] [place] [facility] [address] [id number] [place] [address] Mar, [facility] [place] [facility] [address] [id number] [place] [address] Mar, [facility] [place] [facility] [address] [id number] [place] [address] Feb, [facility] [place] [facility] [address] [id number] [place] [address] 25 Feb, 2014 [facility] [place] [facility] [address] [id number] [place] [address] Feb, [facility] [place] [facility] [address] [facility] [id number] [place] [address] 18 Feb, 2014 [facility] [place] [facility] [address] [id number] [place] [address] 17 Feb, 2014 [facility] [place] [facility] [address] [id number], [place] [address] 17 Feb, 2014 [facility] [place] [facility] [address] [id number] [place] [address] 14 Feb, 2014 [facility] [place] [facility] [address] [id number] [place] [address] 2230 14 Feb, 2014 [facility] [place] [facility] [address] [facility] [id number] [place] [address] 1033 15 Jan, 2014 [facility] [place] [facility] [address] [id number] [place] [address] 4[address] Jan, [facility] [place] [facility] [address] [id number] [place] [address] Nov, [facility] [place] [facility] [address] [id number] [place] [address] Nov, [facility] [place] [facility] [address] [id number] [place] [address] 38[address] Oct, [facility] [place] [facility] [address] [id number] [place] [address] 1379 Oct, [facility] [place] [facility] [address] [id number] [place] [address] 6[address] Oct, [facility] [place] [facility] [address] [id number] [place] [address] 1734 Oct, [facility] [place] [facility] [address] [id number] [place] [address] 06[address] Oct, [facility] [place] [facility] [address] [id number] [place] [address]647 Sep, [facility] [place] [facility] [address] [id number] [place] [address] 8[address] Sep, [facility] [place] [facility] [address] [id number] [place] [address] 1493 August, [facility] [place] [facility] [address] [id number] [place] [address] 34[address] August, [facility] [place] [facility] [address] [id number] [place] [address] 78[address] Jun, [facility] [place] [facility] [address] [id number] [place] [address] 4120 Jun, [facility] [place] [facility] [address] [id number] [place] [address] 4158 Jun, [facility] [place] [facility] [address] [id number] [place] [address] 6090 11 Jun, 2013 [facility] [place] [facility] [address] [id number] [place] [address] 2630 10 Jun, 2013 [facility] [place] [facility] [address] [id number] [place] [address] 8006 10 Jun, 2013 [facility] [place] [facility] [address] [id number] [place] [address] 8598 Jun, [facility] [place] [facility] [address] [id number] [place] [address] 0[address] Jun, [facility] [place] [facility] [address] [id number] [place] [address] 8705 Jun, [facility] [place] [facility] [address] [id number] [place] [address] 2104 Jun, [facility] [place] [facility] [address] [id number] [place] [address]- 0660 Jun, [facility] [place] [facility] [address] [id number] [place] [address] 4246 Jun, [facility] [place] [facility] [address] [id number] [place] [address] 5531 Jun, [facility] [place] [facility] [address] [id number] [place] [address] 6148 Jun, [facility] [place] [facility] [address] [id number] [place] [address] 1194 May, [facility] [place] [facility] [address] [id number] [place] [address] 2112 May, [facility] [place] [facility] [address] [id number] [place] [address] 8278 Apr, [facility] [place] [facility] [address] [id number] [place] [address] 1932 Apr, [facility] [place] [facility] [address] [id number] [place] [address] 69[address] Mar, [facility] [place] [facility] [address] [id number] [place] [address] 2544 Mar, [facility] [address] [id number] [place] [address] 04[address] Feb, [facility] [place] [facility] [address] [id number] [place] [address] 6316 Feb, [facility] [address] [id number] [place] [address]- 9579 Feb, [facility] [place] [facility] [address] [id number] [place] [address] 6573 Feb, [facility] [address] [id number] [place] [address] 1287 Feb, [facility] [place] [facility] [address] [id number] [place] [address] 269[address] Feb, [facility] [place] [facility] [address] [id number] [place] [address] 6143 Feb, [facility] [address] [id number] [place] [address] 9006 Jan, [facility] [place] [facility] [address] [id number] [place] [address] 1780 Jan, [facility] [address] [id number] [place] [address] 6977 Dec, [facility] [place] [facility] [address] [id number] [place] [address]- 7777 Dec, [facility] [place] [facility] [address] [id number] [place] [address]- 4679 Nov, [facility] [place] [facility] [address] [id number] [place] [address]- 3264 Nov, [facility] [place] [facility] [address] [id number] [place] [address]- 2546 Oct, [facility] [place] [facility] [address] [id number] [place] [address]- 8726 Sep, [facility] [address] [id number] [place] [address] 3950 Sep, [facility] [place] [facility] [address] [id number] [place] [address] 2572 August, [facility] [place] [facility] [address] [id number] [place] [address] 1613 August, [facility] [place] [facility] [address] [id number] [place] [address] 4[address] August, [facility] [address] [id number] [place] [address] 3427 Jul, [facility] [place] [facility] [address] [id number] [place] [address] 6965 May, [facility] [place] [facility] [address] [id number] [place] [address]- 1091 May, [facility] [place] [facility] [address] [id number], [place] [address] 4[address] Apr, [facility] [place] [facility] [address] [id number] [place] [address]- 2941 Apr, [facility] [place] [facility] [address] [id number], [place] [address] 5131 Feb, [facility] [place] [facility] [address] [id number] [place] [address]- 3074 Feb, [facility] [place] [facility] [address] [id number], [place] [address]- 7277 Jan, [facility] [place] [facility] [address] [id number] [place] [address]- 8361 Jan, [facility] [place] [facility] [address] [id number] [place] [address]- 0877 Jan, [facility] [place] [facility] [address] [id number] [place] [address]- 0056 Nov, [facility] [place] [facility] [address] [id number] [place] [address]- 3524 Nov, [facility] [place] [facility] [address] [id number] [place] [address]- 7465 Nov, [facility] [place] [facility] [address] [id number] [place] [address]- 5418 Nov, [facility] [place] [facility] [address] [id number] [place] [address]- 5968 Nov, [facility] [place] [facility] [address] [id number] [place] [address]- 6489 Oct, [facility] [place] [facility] [address] [id number] [place] [address]- 6250 Oct, [facility] [place] [facility] [address] [id number] [place] [address]- 5924 Oct, [facility] [place] [facility] [address] [id number] [place] [address]- 3589 Oct, [facility] [place] [facility] [address] [id number] [place] [address]- 3476 Oct, [facility] [place] [facility] [address] [id number] [place] [address]- 3507 Oct, [facility] [place] [facility] [address] [id number] [place] [address]- 7696 Oct, [facility] [place] [facility] [address] [id number] [place] [address]- 9906 Sep, [facility] [place] [facility] [address] [id number] [place] [address]- 3192 Sep, [facility] [place] [facility] [address] [id number] [place] [address]- 2494 Sep, [facility] [place] [facility] [address] [id number] [place] [address]- 6713 August, [facility] [place] [facility] [address] [id number] [place] [address]- 2234 Jul, [facility] [place] [facility] [address] [id number] [place] [address]- 6759 28 Jul, 2011 [facility] [address] [id number] [place] [address]- 6303 27 Jul, 2011 [facility] [place] [facility] [address] [id number] [place] [address]- 4486 16 Jul, 2011 [facility] [place] [facility] [address] [id number] [place] [address]- 1461 13 Jul, 2011 [facility] [place] [facility] [address] [id number] [place] [address]- 3189 Jun, [facility] [place] [facility] [address] [id number] [place] [address]- 7612 May, [facility] [place] [facility] [address] [id number] [place] [address]- 3670 Apr, [facility] [address] [id number] [place] [address]- 5835 Apr, [facility] [place] [facility] [address] [id number] [place] [address]- 1094 Apr, [facility] [address] [id number] [place] [address]- 5985 Apr, [facility] [place] [facility] [address] [id number] [place] [address]- 0880 Apr, [facility] [place] [facility] [address] [id number] [place] [address]- 9269 Apr, [facility] [place] [facility] [address] [id number] [place] [address]- 0978 Mar, [facility] [place] [facility] [address] [id number] [place] [address]- 3154 Mar, [facility] [place] [facility] [address] [id number] [place] [address]- 3553 Feb, [facility] [place] [facility] [address] [id number], [place] [address]- 3576 Nov, [facility] [address] [facility] [id number], [place] [address]- 2679 Jun, [facility] [address] [facility] [id number], [place] [address]- 8747 Apr, [facility] [address] [facility] [id number], [place] [address]- 1812 Feb, [facility] [address] [id number], [place] [address]- 1306 Jan, [facility] [address] [facility] [id number] [place] [address]- 7020 Jan, [facility] [address] [facility] [id number], [place] [address]- 3026 Jan, [facility] [address] [facility] [id number], [place] [address]- 9583 Jan, [facility] [address] [facility] [id number], [place] [address]- 9349 Nov, [facility] [address] [facility] [id number], [place] [address]- 2511 Nov, [facility] [address] [facility] [id number], [place] [address]- 9810 Mar, [facility] [address] [facility] [id number], [place] [address]- 5722 Mar, [facility] [address] [facility] [id number], [place] [address]- 2238 Feb, [facility] [address] [facility] [id number][place] [address]851 Feb, [facility] [address] [facility] [id number], [place]- 0582 Jan, [facility] [address] [facility] [id number], [place] [address]- 4201 10 May, 2008 IMMUNIZATIONS No Known Immunizations SOCIAL HISTORY Never Assessed REASON FOR VISIT Lab (walk-in) PLAN OF CARE VITAL SIGNS MEDICATIONS Unknown Medications RESULTS Name Result Date Reference Range HEPATITIS PROFILE 2017-08-17 HEPATITIS A IGM NON-REACTIVE NON-REACTIVE HEPATITIS B SURFACE ANTIGEN NON-REACTIVE NON-REACTIVE HEPATITIS B CORE ANTIBODY (IGM) NON-REACTIVE NON-REACTIVE HEPATITIS C ANTIBODY NON-REACTIVE NON-REACTIVE SIGNAL TO CUT-OFF 0.01 <1.00 LIVER PANEL (LFT) 2017-08-17 PROTEIN, TOTAL 6.2 6.1-8.1 ALBUMIN 3.9 3.6-5.1 GLOBULIN 2.3 1.9-3.7 ALBUMIN/GLOBULIN RATIO 1.7 1.0-2.5 BILIRUBIN, TOTAL 0.6 0.2-1.2 BILIRUBIN, DIRECT 0.1 < OR=0.2 BILIRUBIN, INDIRECT 0.5 0.2-1.2 ALKALINE PHOSPHATASE 136 33-130 AST 58 10-35 ALT 83 6-29 PROCEDURES Procedure Date Ordered Result Body Site [facility] August 17, 2017 VENIPUNCT, ROUTINE* August 17, 2017 INSTRUCTIONS MEDICATIONS ADMINISTERED No Known Medications [...]
--- OUTSIDE RECORDS SUMMARY | 2018-03-25 15:08 | XMS REPORT ---
Author Author NAYA JACKSON Organization [facility] [facility] Address [address] [place] [address] Care Team Providers Care Certified Hyperbaric Technologist Name Role Phone NAYA JACKSON Unavailable PROBLEMS Type Condition ICD9-CM Code AIC41-BD Code Onset Dates Condition Status SNOMED Code Problem Hypertriglyceridemia E78.1 Active 145773945 Problem Other chronic pain G89.29 Active 25992517 Problem Cervical disc disease M50.90 Active 209469314 Problem Major depressive disorder, single episode, mild F32.0 Active 94428666 Problem Irritable bowel syndrome with diarrhea K58.0 Active 615089911 Problem Paresthesia of bilateral legs R20.2 Active 204842706 Problem Ulcerative pancolitis without complication K51.00 Active 594168001 Problem Abnormal mammogram R92.8 Active 043601827 Problem Polyneuropathy G62.9 Active 21619995 Problem PTSD (post-traumatic stress disorder) F43.10 Active 84938861 Problem Major depressive disorder, recurrent episode, severe F33.2 Active 507960592797 Problem HTN (hypertension) I10 Active 54459027 Problem Depression F32.9 Active 01910669 Problem Parkinsons G20 Active 40385620 Problem Anxiety F41.9 Active 02146622 Problem COPD (chronic obstructive pulmonary disease) J44.9 Active 69808279 Problem Annular psoriasis L40.8 Active 194773475 ALLERGIES No Information ENCOUNTERS Encounter Location Date Diagnosis [facility] [place] [facility] [id number] [address] Nov, [facility] [place] [facility] [address], [place] [address] Oct, Chronic diarrhea K52.9 and Acute colitis K52.9 [facility] [place] [facility] [id number] [address] Oct, Chronic diarrhea K52.9 [facility] [place] [facility] [id number] [place] [address] 69468- 3425 Oct, Chronic diarrhea K52.9 and Edema of both legs R60.0 [facility] [id number] [place] [address] 02094- 1960 Sep, Medicare annual wellness visit, initial Z00.00 ; Parkinsons G20 ; COPD (chronic obstructive pulmonary disease) J44.9 ; Major depressive disorder, single episode, mild F32.0 ; HTN (hypertension) I10 ; Hypokalemia E87.6 and Adverse effect of carbonic-anhydrase inhibitors, benzothiadiazides and other diuretics, initial encounter T50.2X5A [facility] [facility] [id number] [place] [address] 53797- 7174 Sep, Localized edema R60.0 [facility] [id number] [place] [address] 01696- 9611 Sep, [facility] [id number] [place] [address] 19978- 8562 Sep, Major depressive disorder, single episode, mild F32.0 ; PTSD (post-traumatic stress disorder) F43.10 and Edema of both legs R60.0 [place] [facility] [id number] [place] [address] 02603- 5931 August, Localized edema R60.0 [facility] [id number] [place] [address] 28756- 5925 August, Localized edema R60.0 ; Weight gain R63.5 and Irritable bowel syndrome with diarrhea K58.0 [facility] [id number] [place] [address] 35696- 6120 Jul, [facility] [id number] [place] [address] 18026- 5945 Jul, Elevated liver enzymes R74.8 [place] [place] [address] [place] [address] 38645- 9882 Jul, Polyneuropathy G62.9 [facility] [id number] [place] [address] 05477- 4552 Jul, [facility] [id number] [place] [address] 10434- 7592 Jul, Cervical disc disease M50.90 [facility] [id number] [place] [address] 50371- 8286 Jul, Elevated liver enzymes R74.8 [facility] [id number] [place] [address] 33464- 0534 Jul, Polyneuropathy G62.9 ; Ulcerative pancolitis without complication K51.00 ; Depression F32.9 ; Leg weakness, bilateral R29.898 and Paresthesia of bilateral legs R20.2 [facility] [id number] [place] [address] 13208- 5243 Jul, Polyneuropathy G62.9 ; Ulcerative pancolitis without complication K51.00 ; Depression F32.9 ; Leg weakness, bilateral R29.898 and Paresthesia of bilateral legs R20.2 [facility] [facility] [id number] [place] [address] 69360- 8398 Jun, [facility] [id number] [place] [address] 14028- 7135 Jun, Fibrous breast lumps N63.0 [facility] [id number] [place] [address] 83193- 6096 Jun, Ulcerative pancolitis without complication K51.00 [place] [address] [place] [address] 85007- 1989 Jun, Abnormal mammogram R92.8 [facility] [id number] [place] [address] 86868- 4659 Jun, Breast density R92.2 [facility] [id number] [place] [address] 92528- 0986 Jun, [facility] [facility] [id number] [place] [address] 46972- 6553 Jun, PTSD (post-traumatic stress disorder) F43.10 [facility] [id number] [place] [address] 20736- 4682 May, [facility] [id number] [place] [address] 21099- 3753 May, Breast cancer screening Z12.31 and Fibrous breast lumps N63.0 [facility] [id number] [place] [address] 13914- 4437 Apr, Ulcerative pancolitis without complication K51.00 [facility] [id number] [place] [address] 77165- 4312 Apr, [facility] [facility] [id number] [place] [address] 48598- 2298 Apr, Ulcerative pancolitis without complication K51.00 ; Low back pain M54.5 and Other chronic pain G89.29 [facility] [facility] [id number] [place] [address] 55763- 1548 Dec, Cervical disc disease M50.90 and HTN (hypertension) I10 [facility] [facility] [id number] [place] [address] 13220- 0169 05 Dec, 2016 Moderate episode of recurrent major depressive disorder F33.1 and PTSD (post-traumatic stress disorder) F43.10 [facility] [id number] [place] [address] 22696- 3422 Oct, [facility] [id number] [place] [address] 08280- 8172 Oct, Irritable bowel syndrome with diarrhea K58.0 [id number] [place] [address] 90978- 0597 07 Oct, 2016 Irritable bowel syndrome with diarrhea K58.0 [facility] [facility] [id number] [place] [address] 27873- 4783 16 Sep, 2016 Diarrhea, unspecified type R19.7 ; Chronic pain G89.29 ; Hypertriglyceridemia E78.1 ; PTSD (post-traumatic stress disorder) F43.10 ; History of herniated intervertebral disc Z87.39 and Depression F32.9 [place] [facility] [id number] [place] [address] 51759- 1098 August, Moderate episode of recurrent major depressive disorder F33.1 and PTSD (post-traumatic stress disorder) F43.10 [place] [address] 87045- 0165 August, [place] [address] 49605- 9926 Jul, [address] 48554- 2965 Jul, PTSD (post-traumatic stress disorder) F43.10 ; IBS ( irritable bowel syndrome) K58.9 ; HTN (hypertension) I10 ; Hypertriglyceridemia E78.1 ; Chronic pain G89.29 ; Anxiety F41.9 ; Depression F32.9 ; COPD (chronic obstructive pulmonary disease) J44.9 ; Irritable bowel syndrome with diarrhea K58.0 and Second degree hemorrhoids K64.1 [place] [address] 25945- 1242 Jul, PTSD (post-traumatic stress disorder) F43.10 [facility] [facility] [id number] [place] [address] 96886- 5038 Jul, [facility] [facility] [id number] [place] [address] 66569- 4902 Jun, [place] [facility] [id number] [place] [address] 98993- 3093 Jun, HTN (hypertension) I10 [address] 06401- 1742 May, Depression F32.9 ; Post traumatic stress disorder F43.10 and Screening mammogram, encounter for Z12.[address] 28195- 6085 May, [facility] [facility] [id number] [place] [address] 73444- 4377 May, PTSD (post-traumatic stress disorder) F43.10 and Major depressive disorder in partial remission F32.4 [facility] [id number] [place] [address] 07246- 5806 May, PTSD (post-traumatic stress disorder) F43.10 ; IBS ( irritable bowel syndrome) K58.9 ; History of herniated intervertebral disc Z87.39 ; Anxiety F41.9 ; Depression F32.9 ; Hypertriglyceridemia E78.1 ; Eczema of both hands L30.9 ; HTN (hypertension) I10 and COPD (chronic obstructive pulmonary disease) J44.9 [place] [address] [place] [address] 99582- 3611 Apr, Major depressive disorder in partial remission F32.4 and PTSD (post-traumatic stress disorder) F43.10 [place] [place] [address] 96161- 2247 Apr, PTSD (post-traumatic stress disorder) F43.10 [facility] [id number] [place] [address] 36115- 3097 Mar, IBS (irritable bowel syndrome) K58.9 ; PTSD (post-traumatic stress disorder) F43.10 ; COPD (chronic obstructive pulmonary disease) J44.9 ; History of herniated intervertebral disc Z87.39 ; HTN (hypertension) I10 ; Parkinsons G20 ; Annular psoriasis L40.8 and Hypertriglyceridemia E78.1 [place] [place] [address] 26971- 6116 Feb, [id number] [place] [address] 54549- 7401 Feb, Moderate episode of recurrent major depressive disorder F33.1 and PTSD (post-traumatic stress disorder) F43.10 [facility] [facility] [id number] [place] [address] 72605- 5751 Jan, Onychocryptosis L60.0 [facility] [place] [facility] [id number] [place] [address] 95094- 4244 Dec, [facility] [place] [facility] [address] 59058- 5654 Dec, Dizziness R42 ; PTSD (post-traumatic stress disorder) F43.10 ; Posttraumatic stress disorder F43.10 ; IBS (irritable bowel syndrome) K58.9 ; History of herniated intervertebral disc Z87.39 ; HTN (hypertension) I10 ; Chronic pain G89.29 and Hypercholesterolemia E78.0 [address] [address] 12249- 1577 Dec, [facility] [facility] [address] 18963- 7231 Dec, [facility] [address] 88449 -5813 Dec, Annular psoriasis L40.8 [facility] [facility] [address] 63061- 0884 Nov, [place] [address] 42462- 1763 Nov, [place] [id number] [place] [address] 35474- 4681 Nov, HTN (hypertension) I10 ; Chronic pain G89.29 ; Annular psoriasis L40.8 ; IBS (irritable bowel syndrome) K58.9 and Vision changes H53.9 [facility] [facility] [id number] [place] [address] 16962- 5449 Oct, [facility] [facility] [address] 58743- 9133 Oct, IBS (irritable bowel syndrome) K58.9 ; PTSD (post-traumatic stress disorder) F43.10 ; HTN (hypertension) I10 ; Depression F32.9 ; History of herniated intervertebral disc Z87.39 ; Anxiety F41.9 ; Chronic pain G89.29 and Hypercholesterolemia E78.0 [place] [id number] [place] [address] 65884- 7418 Oct, Major depressive disorder in partial remission F32.4 and PTSD (post-traumatic stress disorder) F43.10 [place] [id number] [place] [address] 43159- 5210 Oct, IBS (irritable bowel syndrome) K58.9 ; PTSD (post-traumatic stress disorder) F43.10 ; Major depressive disorder, recurrent episode, severe F33.2 ; Anxiety F41.9 and Impacted cerumen, unspecified laterality H61.20 [place] [id number] [place] [address] 92605- 2879 Oct, Major depressive disorder in partial remission F32.4 ; Posttraumatic stress disorder F43.10 and Anxiety F41.9 [place] [address] 20937- 6333 Sep, [place] [address] 14051- 2923 Sep, Anxiety F41.9 ; Major depressive disorder, recurrent episode , mild F33.0 and Posttraumatic stress disorder F43.10 [facility] [facility] [id number] [place] [address] 79927- 1347 Sep, [place] [id number] [place] [address] 87508- 0400 August, [place] [facility] [id number] [place] [address] 22663- 9302 Jul, Contact dermatitis L25.9 [place] [address] 62643- 6503 Jul, Major depressive disorder, recurrent episode, severe F33.2 ; Posttraumatic stress disorder F43.10 and Anxiety F41.9 [place] [id number] [place] [address] 49739- 2127 Jul, [place] [address] [place] [address] 01739- 9014 Jun, IBS (irritable bowel syndrome) K58.9 ; COPD (chronic obstructive pulmonary disease) J44.9 ; HTN (hypertension) I10 ; Chronic pain G89.29 ; Anxiety F41.9 ; PTSD (post-traumatic stress disorder) F43.10 ; Parkinsons G20 and Hypercholesterolemia E78.0 [id number] [place] [address] 62815- 8840 Jun, [place] [facility] [id number] [place] [address] 98869- 0678 Jun, Onychocryptosis L60.0 and Onychomycosis B35.1 [place] [facility] [id number] [place] [address] 03227- 7271 May, [id number] [place] [address] 98844- 5118 May, IBS (irritable bowel syndrome) K58.9 ; COPD (chronic obstructive pulmonary disease) J44.9 ; History of herniated intervertebral disc Z87.39 ; HTN (hypertension) I10 ; Anxiety F41.9 ; Depression F32.9 and Major depressive disorder in partial remission F32.4 [place] [facility] [id number] [place] [address] 48137- 7550 08 May, 2015 IBS (irritable bowel syndrome) K58.9 ; COPD (chronic obstructive pulmonary disease) J44.9 ; History of herniated intervertebral disc Z87.39 ; HTN (hypertension) I10 ; Anxiety F41.9 ; Depression F32.9 and Major depressive disorder in partial remission F32.4 [place] [id number] [place] [address] 13777- 0578 May, [place] [id number] [place] [address] 31995- 8985 04 May, 2015 Anxiety F41.9 ; IBS (irritable bowel syndrome) K58.9 and Major depressive disorder in partial remission F32.4 [place] [address], [place] [address]- 9566 18 Apr, 2015 Encounter for screening mammogram for breast cancer Z12.31 [facility] [facility] [id number] [place] [address] 37565- 1461 15 Apr, 2015 [place] [id number] [place] [address] 30281- 3539 11 Apr, 2015 [place] [id number] [place] [address] 45471- 9206 Apr, COPD (chronic obstructive pulmonary disease) J44.9 ; HTN ( hypertension) I10 ; Chronic pain G89.29 ; Anxiety F41.9 ; PTSD (post-traumatic stress disorder) F43.10 and IBS (irritable bowel syndrome) K58.9 [id number] [place] [address] 11461- 1808 Apr, PTSD (post-traumatic stress disorder) F43.10 [place] [id number] [place] [address] 65220- 9033 08 Apr, 2015 Onychocryptosis L60.0 and Onychomycosis B35.[address] [place] [address] 19638- 8610 04 Apr, 2015 IBS (irritable bowel syndrome) K58.9 ; COPD (chronic obstructive pulmonary disease) J44.9 ; History of herniated intervertebral disc Z87.39 ; HTN (hypertension) I10 ; Chronic pain G89.29 ; Anxiety F41.9 ; Depression F32.9 ; Parkinsons G20 ; Hypercholesteremia E78.0 and Hemorrhoid K64.9 [place] [id number] [place] [address] 70759- 8360 Mar, [id number] [place] [address] 95239- 4887 Mar, Major depressive disorder, recurrent episode, severe F33.2 and Posttraumatic stress disorder F43.10 [address] [address] 2546 Mar, [facility] [facility] [address] [place] [address] 69756 2546 Mar, [facility] [facility] [address] [place] [address] 25086 2546 Mar, PTSD (post-traumatic stress disorder) F43.10 [facility] [facility] [id number] [place] [address] 17207 2546 Mar, Onychomycosis B35.1 and Hypertension, benign I10 [facility] [facility] [id number] [place] [address] 92584 2546 Mar, Onychomycosis B35.1 and Hypertension, benign I10 [facility] [facility] [id number] [place] [address] 65857 2546 Feb, PTSD (post-traumatic stress disorder) F43.10 [facility] [facility] [address], [place] [address] 2546 Feb, [facility] [facility] [address] [place] [address] 26525 2546 Feb, Major depressive disorder, recurrent episode, severe F33.2 and Posttraumatic stress disorder F43.10 [facility] [address], [place] [address] 2546 Jan, PTSD (post-traumatic stress disorder) F43.10 [facility] [address], [place] [address] 2546 Jan, Rash R21 [facility] [facility] [address] [place] [address] 45629 2546 Jan, PTSD (post-traumatic stress disorder) F43.10 [facility] [address], [place] [address] 2546 Jan, [facility] [facility] [address] [place] [address] 66130023- 7519 Dec, Neuropathy 355.9 [facility] [facility] [address] [place] [address] 98597- 1740 30 Dec, 2014 PTSD (post-traumatic stress disorder) F43.10 [facility] [facility] [address] [place] [address] 86395- 8622 29 Dec, 2014 MDD (major depressive disorder), recurrent episode, severe 296.33 and PTSD (post-traumatic stress disorder) 309.81 [facility] [facility] [id number] [place] [address] 01945- 5590 Dec, [facility] [facility] [id number] [place] [address] 83793- 0615 Dec, Ingrown toenail 703.0 [facility] [facility] [id number] [place] [address] 44865- 5775 Dec, Posttraumatic stress disorder 309.81 [facility] [facility] [id number] [place] [address] 36541- 6050 Nov, Depressive disorder, not elsewhere classified 311 and Anxiety state, unspecified 300.00 [facility] [place] [facility] [id number] [place] [address] 55294- 2689 Oct, Depressive disorder, not elsewhere classified 311 and Anxiety state, unspecified 300.00 [facility] [facility] [id number] [place] [address] 83454- 9699 Oct, Depressive disorder, not elsewhere classified 311 ; Anxiety state, unspecified 300.00 and No condition on Waterfall II V71.09 [facility] [id number] [id number] Oct, Dental examination V72.2 [facility] [facility] [id number] [place] [address] 88935- 7264 Oct, [facility] [place] [facility] [address] [place] [address] 74873- 2091 August, [facility] [place] [facility] [id number] [place] [address] 73718- 7031 August, Seizure 780.39 and IBS (irritable bowel syndrome) 564.1 [facility] [id number] [address]- 4156 14 Jul, 2014 [facility] [address] [facility] [id number] [place] [address]- 0456 Jul, [facility] [id number] [place] [address], [place] [address]- 7056 Jun, [facility] [address] [facility] [id number] [place] [address], [place] [address]- 2623 Jun, [facility] [id number] [place] [address], [place] [address]- 9872 Jun, [facility] [id number] [place] [address]- 8583 Jun, [facility] [id number] [place] [address], [place] [address]- 9484 Jun, [facility] [id number] [place] [address]- 0746 Jun, [facility] [address] [place] [address]- 0183 Jun, [facility] [id number] [place] [address]- 9912 Jun, [facility] [id number] [place] [address]- 5098 Jun, [facility] [address] [facility] [id number] [address]- 2244 Jun, [facility] [id number] [place] [address]- 9656 Jun, [facility] [id number] [place] [address]- 1796 Jun, [facility] [address] 0677 May, [facility] [address] [id number] [place] [address]- 4308 May, [facility] [place] [facility] [address] [id number] [place] [address]- 3875 Apr, [facility] [place] [facility] [address] [id number] [place] [address]- 9730 Apr, [facility] [place] [facility] [address] [id number] [place] [address]- 0489 Mar, [facility] [place] [facility] [address] [id number] [place] [address]- 8497 Mar, [facility] [place] [facility] [address] [id number] [place] [address]- 8690 Mar, [facility] [place] [facility] [address] [id number] [place] [address]- 2381 Mar, [facility] [place] [facility] [address] [id number] [place] [address] Mar, [facility] [place] [facility] [address] [id number] [place] [address] Mar, [facility] [place] [facility] [address] [id number] [place] [address] Mar, [facility] [place] [facility] [address] [id number] [place] [address] Mar, [facility] [place] [facility] [address] [id number] [place] [address]- [address] Mar, [facility] [place] [facility] [address] [id number] [place] [address]- [address] Mar, [facility] [place] [facility] [address] [id number] [place] [address]- [address] Mar, [facility] [place] [facility] [address] [id number] [place] [address]- [address] Mar, [facility] [place] [facility] [address] [id number] [place] [address]- [address] 03 Mar, 2014 [facility] [place] [facility] [address] [id number] [place] [address]- [address] Mar, [facility] [place] [facility] [address] [id number] [place] [address]- [address] Mar, [facility] [place] [facility] [address] [id number] [place] [address]- [address] Mar, [facility] [place] [facility] [address] [id number] [place] [address]- [address] Mar, [facility] [place] [facility] [address] [id number] [place] [address]- [address] Mar, [facility] [place] [facility] [address] [id number] [place] [address]- [address] Mar, [facility] [place] [facility] [address] [id number] [place] [address]- [address] Feb, [facility] [place] [facility] [address] [id number] [place] [address]- [address] 25 Feb, 2014 [facility] [place] [facility] [address] [id number] [place] [address]- [address] Feb, [facility] [place] [facility] [address] [facility] [id number] [place] [address]- [address] 18 Feb, 2014 [facility] [place] [facility] [address] [id number] [place] [address]- [address] 17 Feb, 2014 [facility] [place] [facility] [address] [id number], [place] [address] 17 Feb, 2014 [facility] [place] [facility] [address] [id number] [place] [address]- [address] 14 Feb, 2014 [facility] [place] [facility] [address] [id number] [place] [address]- [address] 14 Feb, 2014 [facility] [place] [facility] [address] [facility] [id number] [place] [address]- [address] 15 Jan, 2014 [facility] [place] [facility] [address] [id number] [place] [address]- [address] Jan, [facility] [place] [facility] [address] [id number] [place] [address] Nov, [facility] [place] [facility] [address] [id number] [place] [address] Nov, [facility] [place] [facility] [address] [id number] [place] [address] Oct, [facility] [place] [facility] [address] [id number] [place] [address] Oct, [facility] [place] [facility] [address] [id number] [place] [address] Oct, [facility] [place] [facility] [address] [id number] [place] [address] Oct, [facility] [place] [facility] [address] [id number] [place] [address] 29[address] Oct, [facility] [place] [facility] [address] [id number] [place] [address] Sep, [facility] [place] [facility] [address] [id number] [place] [address] Sep, [facility] [place] [facility] [address] [id number] [place] [address] August, [facility] [place] [facility] [address] [id number] [place] [address] 47[address] August, [facility] [place] [facility] [address] [id number] [place] [address] Jun, [facility] [place] [facility] [address] [id number] [place] [address] Jun, [facility] [place] [facility] [address] [id number] [place] [address] Jun, [facility] [place] [facility] [address] [id number] [place] [address] 11 Jun, 2013 [facility] [place] [facility] [address] [id number] [place] [address]- 4672 10 Jun, 2013 [facility] [place] [facility] [address] [id number] [place] [address] 9113 10 Jun, 2013 [facility] [place] [facility] [address] [id number] [place] [address] 98[address] Jun, [facility] [place] [facility] [address] [id number] [place] [address] Jun, [facility] [place] [facility] [address] [id number] [place] [address] 1677 Jun, [facility] [place] [facility] [address] [id number] [place] [address]- 37[address] Jun, [facility] [place] [facility] [address] [id number] [place] [address]- [address]44 Jun, [facility] [place] [facility] [address] [id number] [place] [address]- [address] Jun, [facility] [place] [facility] [address] [id number] [place] [address]- 8581 Jun, [facility] [place] [facility] [address] [id number] [place] [address]- [address] Jun, [facility] [place] [facility] [address] [id number] [place] [address]- 0769 May, [facility] [place] [facility] [address] [id number] [place] [address] 378[address] May, [facility] [place] [facility] [address] [id number] [place] [address] 9028 Apr, [facility] [place] [facility] [address] [id number] [place] [address] 9610 Apr, [facility] [place] [facility] [address] [id number] [place] [address] Mar, [facility] [place] [facility] [address] [id number] [place] [address] Mar, [facility] [address] [id number] [place] [address] Feb, [facility] [place] [facility] [address] [id number] [place] [address]- [address] Feb, [facility] [address] [id number] [place] [address]- [address]753 Feb, [facility] [place] [facility] [address] [id number] [place] [address] 5096 Feb, [facility] [address] [id number] [place] [address] 82[address] Feb, [facility] [place] [facility] [address] [id number] [place] [address]- 4714 Feb, [facility] [place] [facility] [address] [id number] [place] [address] 7681 Feb, [facility] [address] [id number] [place] [address] 8[address] Jan, [facility] [place] [facility] [address] [id number] [place] [address] 37[address] Jan, [facility] [address] [id number] [place] [address]004 Dec, [facility] [place] [facility] [address] [id number] [place] [address] 34[address] Dec, [facility] [place] [facility] [address] [id number] [place] [address] 4163 Nov, [facility] [place] [facility] [address] [id number] [place] [address] 4[address] Nov, [facility] [place] [facility] [address] [id number] [place] [address]- 2546 Oct, [facility] [place] [facility] [address] [id number] [place] [address]- 4984 Sep, [facility] [address] [id number] [place] [address]- 9542 Sep, [facility] [place] [facility] [address] [id number] [place] [address] 9778 August, [facility] [place] [facility] [address] [id number] [place] [address]- 6491 August, [facility] [place] [facility] [address] [id number] [place] [address]- 6176 August, [facility] [address] [id number] [place] [address]- 0789 Jul, [facility] [place] [facility] [address] [id number] [place] [address]- 4383 May, [facility] [place] [facility] [address] [id number] [place] [address]- 8980 May, [facility] [place] [facility] [address] [id number], [place] [address] 27[address] Apr, [facility] [place] [facility] [address] [id number] [place] [address]- 4413 Apr, [facility] [place] [facility] [address] [id number], [place] [address]- [address] Feb, [facility] [place] [facility] [address] [id number] [place] [address]- [address]453 Feb, [facility] [place] [facility] [address] [id number], [place] [address]- 8665 Jan, [facility] [place] [facility] [address] [id number] [place] [address]- 9993 Jan, [facility] [place] [facility] [address] [id number] [place] [address]- 2446 Jan, [facility] [place] [facility] [address] [id number] [place] [address]- 2624 Nov, [facility] [place] [facility] [address] [id number] [place] [address]- 3417 Nov, [facility] [place] [facility] [address] [id number] [place] [address]- 1088 Nov, [facility] [place] [facility] [address] [id number] [place] [address]- 3080 Nov, [facility] [place] [facility] [address] [id number] [place] [address]- 1072 Nov, [facility] [place] [facility] [address] [id number] [place] [address]- 4676 Oct, [facility] [place] [facility] [address] [id number] [place] [address]- 3485 Oct, [facility] [place] [facility] [address] [id number] [place] [address]- 2540 Oct, [facility] [place] [facility] [address] [id number] [place] [address]- 4144 Oct, [facility] [place] [facility] [address] [id number] [place] [address]- 9821 Oct, [facility] [place] [facility] [address] [id number] [place] [address]- 0401 Oct, [facility] [place] [facility] [address] [id number] [place] [address]- 6234 Oct, [facility] [place] [facility] [address] [id number] [place] [address]- 8139 Sep, [facility] [place] [facility] [address] [id number] [place] [address]- 5397 Sep, [facility] [place] [facility] [address] [id number] [place] [address]- 7886 Sep, [facility] [place] [facility] [address] [id number] [place] [address]- 4334 August, [facility] [place] [facility] [address] [id number] [place] [address]- 7452 Jul, [facility] [place] [facility] [address] [id number] [place] [address]- 0671 28 Jul, 2011 [facility] [address] [id number] [place] [address]- 1501 27 Jul, 2011 [facility] [place] [facility] [address] [id number] [place] [address]- 0474 16 Jul, 2011 [facility] [place] [facility] [address] [id number] [place] [address]- 9506 13 Jul, 2011 [facility] [place] [facility] [address] [id number] [place] [address]- 4112 Jun, [facility] [place] [facility] [address] [id number] [place] [address]- 9365 May, [facility] [place] [facility] [address] [id number] [place] [address]- 3186 Apr, [facility] [address] [id number] [place] [address]- 3743 Apr, [facility] [place] [facility] [address] [id number] [place] [address]- 5843 Apr, [facility] [address] [id number] [place] [address]- 5937 Apr, [facility] [place] [facility] [address] [id number] [place] [address]- 3829 Apr, [facility] [place] [facility] [address] [id number] [place] [address]- 0659 Apr, [facility] [place] [facility] [address] [id number] [place] [address]- 1288 Mar, [facility] [place] [facility] [address] [id number] [place] [address]- 5182 Mar, [facility] [place] [facility] [address] [id number] [place] [address]- 2412 Feb, [facility] [place] [facility] [address] [id number], [place] [address]- 9181 Nov, [facility] [address] [facility] [id number], [place] [address]- 6632 Jun, [facility] [address] [facility] [id number], [place] [address]- 7886 Apr, [facility] [address] [facility] [id number][place]25[place] [address]48 Feb, [facility] [address] [facility] [id number], [place] [address]- 7195 Jan, [facility] [address] [facility] [id number] [place] [address]- 0362 Jan, [facility] [address] [facility] [id number], [place] [address]- 4757 Jan, [facility] [address] [facility] [id number], [place] [address]- 0979 Jan, [facility] [address] [facility] [id number], [place] [address]- 7346 Nov, [facility] [address] [facility] [id number], [place] [address]- 5404 Nov, [facility] [address] [facility] [id number], [place] [address]- 7350 Mar, [facility] [address] [facility] [id number], [place] [address]- 9421 Mar, [facility] [address] [facility] [id number], [place] [address]- 8300 Feb, [facility] [address] [facility] [id number][place]- 2936 Feb, [facility] [address] [facility] [id number], [place]- 8390 Jan, [facility] [address] [facility] [id number], [place] [address]- 5175 10 May, 2008 IMMUNIZATIONS No Known Immunizations SOCIAL HISTORY Never Assessed REASON FOR VISIT combivent note PLAN OF CARE VITAL SIGNS MEDICATIONS Medication Instructions Dosage Frequency Start Date End Date Duration Status Albuterol Sulfate HFA 108 (90 Base) MCG/ACT Inhalation every 6 hrs 2 puffs as needed 6h Jul, 30 days Active RESULTS No Results PROCEDURES No Known [...]
--- OUTSIDE RECORDS SUMMARY | 2018-03-25 15:09 | XMS REPORT ---
Author Author NAYA JACKSON Organization [facility] Address [address] [place] [address] Care Team Providers [facility] Director Name Role Phone NAYA JACKSON Unavailable PROBLEMS Type Condition ICD9-CM Code XDB01-RL Code Onset Dates Condition Status SNOMED Code Problem Hypertriglyceridemia E78.1 Active 694699333 Problem Other chronic pain G89.29 Active 55369483 Problem Cervical disc disease M50.90 Active 914025956 Problem Major depressive disorder, single episode, mild F32.0 Active 69499849 Problem Irritable bowel syndrome with diarrhea K58.0 Active 159404733 Problem Paresthesia of bilateral legs R20.2 Active 433481949 Problem Ulcerative pancolitis without complication K51.00 Active 376223085 Problem Abnormal mammogram R92.8 Active 097346189 Problem Polyneuropathy G62.9 Active 78330615 Problem PTSD (post-traumatic stress disorder) F43.10 Active 62114081 Problem Major depressive disorder, recurrent episode, severe F33.2 Active 948922457192 Problem HTN (hypertension) I10 Active 45668060 Problem Depression F32.9 Active 44082858 Problem Parkinsons G20 Active 75375008 Problem Anxiety F41.9 Active 72030786 Problem COPD (chronic obstructive pulmonary disease) J44.9 Active 45203131 Problem Annular psoriasis L40.8 Active 854046402 ALLERGIES No Information ENCOUNTERS Encounter Location Date Diagnosis [facility] [id number], [place] [address] Nov, [facility] [address], [place] [address] Oct, Chronic diarrhea K52.9 and Acute colitis K52.9 [facility] [id number], [place] [address] Oct, Chronic diarrhea K52.9 [facility] [id number] [place] [address] 58174- 3650 Oct, Chronic diarrhea K52.9 and Edema of both legs R60.0 [facility] [id number] [place] [address] 43658- 7662 Sep, Medicare annual wellness visit, initial Z00.00 ; Parkinsons G20 ; COPD (chronic obstructive pulmonary disease) J44.9 ; Major depressive disorder, single episode, mild F32.0 ; HTN (hypertension) I10 ; Hypokalemia E87.6 and Adverse effect of carbonic-anhydrase inhibitors, benzothiadiazides and other diuretics, initial encounter T50.2X5A [facility] [id number] [place] [address] 43889- 7756 Sep, Localized edema R60.0 [facility] [id number] [place] [address] 89628- 1509 Sep, [facility] [id number] [place] [address] 63708- 6940 Sep, Major depressive disorder, single episode, mild F32.0 ; PTSD (post-traumatic stress disorder) F43.10 and Edema of both legs R60.0 [facility] [id number] [place] [address] 59589- 0463 August, Localized edema R60.0 [facility] [id number] [place] [address] 08228- 6674 August, Localized edema R60.0 ; Weight gain R63.5 and Irritable bowel syndrome with diarrhea K58.0 [facility] [id number] [place] [address] 53259- 7117 Jul, [facility] [id number] [place] [address] 79425- 4265 Jul, Elevated liver enzymes R74.8 [facility] [address] [place] [address] 54096- 5310 Jul, Polyneuropathy G62.9 [facility] [address] [place] [address] 73641- 8719 Jul, [facility] [id number] [place] [address] 77680- 6296 Jul, Cervical disc disease M50.90 [facility] [address] [place] [address] 90111- 2211 Jul, Elevated liver enzymes R74.8 [facility] [address] [place] [address] 11328- 7625 Jul, Polyneuropathy G62.9 ; Ulcerative pancolitis without complication K51.00 ; Depression F32.9 ; Leg weakness, bilateral R29.898 and Paresthesia of bilateral legs R20.2 [facility] [address] [place] [address] 44117- 7698 Jul, Polyneuropathy G62.9 ; Ulcerative pancolitis without complication K51.00 ; Depression F32.9 ; Leg weakness, bilateral R29.898 and Paresthesia of bilateral legs R20.2 [facility] [id number] [place] [address] 41016- 0218 Jun, [facility] [id number] [place] [address] 13805- 9727 Jun, Fibrous breast lumps N63.0 [facility] [address] [place] [address] 09802- 6388 Jun, Ulcerative pancolitis without complication K51.00 [facility] [address] [place] [address] 73396- 9697 Jun, Abnormal mammogram R92.8 [facility] [id number] [place] [address] 82953- 4992 Jun, Breast density R92.2 [facility] [id number] [place] [address] 33535- 9008 Jun, [facility] [address] [place] [address] 80164- 1705 Jun, PTSD (post-traumatic stress disorder) F43.10 [facility] [address] [place] [address] 82118- 5534 May, [facility] [address] [place] [address] 74656- 8284 May, Breast cancer screening Z12.31 and Fibrous breast lumps N63.0 [facility] [address] [place] [address] 07359- 8697 Apr, Ulcerative pancolitis without complication K51.00 [facility] [address] [place] [address] 93116- 4944 Apr, [facility] [address] [place] [address] 95761- 1975 Apr, Ulcerative pancolitis without complication K51.00 ; Low back pain M54.5 and Other chronic pain G89.29 [facility] [address] [place] [address] 57630- 4370 Dec, Cervical disc disease M50.90 and HTN (hypertension) I10 [facility] [address] [place] [address] 90872- 8494 05 Dec, 2016 Moderate episode of recurrent major depressive disorder F33.1 and PTSD (post-traumatic stress disorder) F43.10 [facility] [address] [place] [address] 32845- 4037 Oct, [facility] [address] [place] [address] 49962- 8782 Oct, Irritable bowel syndrome with diarrhea K58.0 [id number] [place] [address] 72266- 9575 07 Oct, 2016 Irritable bowel syndrome with diarrhea K58.0 [facility] [address] [place] [address] 37878- 4486 16 Sep, 2016 Diarrhea, unspecified type R19.7 ; Chronic pain G89.29 ; Hypertriglyceridemia E78.1 ; PTSD (post-traumatic stress disorder) F43.10 ; History of herniated intervertebral disc Z87.39 and Depression F32.9 [facility] [address] [place] [address] 01295- 5623 August, Moderate episode of recurrent major depressive disorder F33.1 and PTSD (post-traumatic stress disorder) F43.10 [facility] [address] 29397- 5043 August, [facility] [address] 96909- 7099 Jul, [address] 78982- 2691 Jul, PTSD (post-traumatic stress disorder) F43.10 ; IBS ( irritable bowel syndrome) K58.9 ; HTN (hypertension) I10 ; Hypertriglyceridemia E78.1 ; Chronic pain G89.29 ; Anxiety F41.9 ; Depression F32.9 ; COPD (chronic obstructive pulmonary disease) J44.9 ; Irritable bowel syndrome with diarrhea K58.0 and Second degree hemorrhoids K64.1 [facility] [address] 98048- 6117 Jul, PTSD (post-traumatic stress disorder) F43.10 [facility] [id number] [place] [address] 88096- 6952 Jul, [facility] [id number] [place] [address] 16942- 8782 Jun, [facility] [id number] [place] [address] 10273- 4020 Jun, HTN (hypertension) I10 [address] 11451- 8196 May, Depression F32.9 ; Post traumatic stress disorder F43.10 and Screening mammogram, encounter for Z12.[address] 40037- 7457 May, [facility] [address] [place] [address] 37694- 6054 May, PTSD (post-traumatic stress disorder) F43.10 and Major depressive disorder in partial remission F32.4 [facility] [address] [place] [address] 04465- 3920 May, PTSD (post-traumatic stress disorder) F43.10 ; IBS ( irritable bowel syndrome) K58.9 ; History of herniated intervertebral disc Z87.39 ; Anxiety F41.9 ; Depression F32.9 ; Hypertriglyceridemia E78.1 ; Eczema of both hands L30.9 ; HTN (hypertension) I10 and COPD (chronic obstructive pulmonary disease) J44.9 [facility] [address] [place] [address] 00973- 0614 Apr, Major depressive disorder in partial remission F32.4 and PTSD (post-traumatic stress disorder) F43.10 [facility] [address] [place] [address] 72420- 4234 Apr, PTSD (post-traumatic stress disorder) F43.10 [facility] [id number] [place] [address] 17296- 5762 Mar, IBS (irritable bowel syndrome) K58.9 ; PTSD (post-traumatic stress disorder) F43.10 ; COPD (chronic obstructive pulmonary disease) J44.9 ; History of herniated intervertebral disc Z87.39 ; HTN (hypertension) I10 ; Parkinsons G20 ; Annular psoriasis L40.8 and Hypertriglyceridemia E78.1 [facility] [address] [place] [address] 09084- 7274 Feb, [id number] [place] [address] 29237- 4919 Feb, Moderate episode of recurrent major depressive disorder F33.1 and PTSD (post-traumatic stress disorder) F43.10 [facility] [address] [place] [address] 34590- 0332 Jan, Onychocryptosis L60.0 [facility] [id number] [place] [address] 21578- 3167 Dec, [facility] [address] 83091- 2659 Dec, Dizziness R42 ; PTSD (post-traumatic stress disorder) F43.10 ; Posttraumatic stress disorder F43.10 ; IBS (irritable bowel syndrome) K58.9 ; History of herniated intervertebral disc Z87.39 ; HTN (hypertension) I10 ; Chronic pain G89.29 and Hypercholesterolemia E78.0 [facility] [facility] [address] 12668- 2208 Dec, [facility] [address] 87743- 1897 Dec, [facility] [address] 51816 -2602 Dec, Annular psoriasis L40.8 [facility] [address] 62677- 6057 Nov, [facility] [address] 77130- 6593 Nov, [facility] [id number] [place] [address] 90698- 7384 Nov, HTN (hypertension) I10 ; Chronic pain G89.29 ; Annular psoriasis L40.8 ; IBS (irritable bowel syndrome) K58.9 and Vision changes H53.9 [facility] [id number] [place] [address] 94870- 1920 Oct, [facility] [address] 46585- 8867 Oct, IBS (irritable bowel syndrome) K58.9 ; PTSD (post-traumatic stress disorder) F43.10 ; HTN (hypertension) I10 ; Depression F32.9 ; History of herniated intervertebral disc Z87.39 ; Anxiety F41.9 ; Chronic pain G89.29 and Hypercholesterolemia E78.0 [facility] [id number] [place] [address] 99438- 7406 Oct, Major depressive disorder in partial remission F32.4 and PTSD (post-traumatic stress disorder) F43.10 [facility] [address] [place] [address] 03675- 7849 Oct, IBS (irritable bowel syndrome) K58.9 ; PTSD (post-traumatic stress disorder) F43.10 ; Major depressive disorder, recurrent episode, severe F33.2 ; Anxiety F41.9 and Impacted cerumen, unspecified laterality H61.20 [facility] [address] [place] [address] 93837- 7557 Oct, Major depressive disorder in partial remission F32.4 ; Posttraumatic stress disorder F43.10 and Anxiety F41.9 [facility] [address] 00312- 8781 Sep, [facility] [address] 73012- 8235 Sep, Anxiety F41.9 ; Major depressive disorder, recurrent episode , mild F33.0 and Posttraumatic stress disorder F43.10 [facility] [address] [place] [address] 12772- 6826 Sep, [facility] [address] [place] [address] 37273- 0667 August, [facility] [address] [place] [address] 26625- 6658 Jul, Contact dermatitis L25.9 [facility] [address] 00625- 9647 Jul, Major depressive disorder, recurrent episode, severe F33.2 ; Posttraumatic stress disorder F43.10 and Anxiety F41.9 [facility] [address] [place] [address] 45753- 8739 Jul, [facility] [address] [place] [address] 69363- 1021 Jun, IBS (irritable bowel syndrome) K58.9 ; COPD (chronic obstructive pulmonary disease) J44.9 ; HTN (hypertension) I10 ; Chronic pain G89.29 ; Anxiety F41.9 ; PTSD (post-traumatic stress disorder) F43.10 ; Parkinsons G20 and Hypercholesterolemia E78.0 [id number] [place] [address] 51140- 1152 Jun, [facility] [address] [place] [address] 00086- 1080 Jun, Onychocryptosis L60.0 and Onychomycosis B35.1 [facility] [address] [place] [address] 21150- 0922 May, [id number] [place] [address] 11764- 3315 May, IBS (irritable bowel syndrome) K58.9 ; COPD (chronic obstructive pulmonary disease) J44.9 ; History of herniated intervertebral disc Z87.39 ; HTN (hypertension) I10 ; Anxiety F41.9 ; Depression F32.9 and Major depressive disorder in partial remission F32.4 [facility] [address] [place] [address] 93946- 6680 08 May, 2015 IBS (irritable bowel syndrome) K58.9 ; COPD (chronic obstructive pulmonary disease) J44.9 ; History of herniated intervertebral disc Z87.39 ; HTN (hypertension) I10 ; Anxiety F41.9 ; Depression F32.9 and Major depressive disorder in partial remission F32.4 [facility] [address] [place] [address] 66288- 1979 May, [facility] [address] [place] [address] 64328- 0649 04 May, 2015 Anxiety F41.9 ; IBS (irritable bowel syndrome) K58.9 and Major depressive disorder in partial remission F32.4 [facility] [address], [place] [address]- 7072 18 Apr, 2015 Encounter for screening mammogram for breast cancer Z12.31 [facility] [address] [place] [address] 79653- 0900 15 Apr, 2015 [facility] [address] [place] [address] 18972- 9936 11 Apr, 2015 [facility] [address] [place] [address] 63751- 0629 Apr, COPD (chronic obstructive pulmonary disease) J44.9 ; HTN ( hypertension) I10 ; Chronic pain G89.29 ; Anxiety F41.9 ; PTSD (post-traumatic stress disorder) F43.10 and IBS (irritable bowel syndrome) K58.9 [id number] [place] [address] 08463- 0906 Apr, PTSD (post-traumatic stress disorder) F43.10 [facility] [address] [place] [address] 94703- 9511 08 Apr, 2015 Onychocryptosis L60.0 and Onychomycosis B35.[address] [place] [address] 29780- 1309 04 Apr, 2015 IBS (irritable bowel syndrome) K58.9 ; COPD (chronic obstructive pulmonary disease) J44.9 ; History of herniated intervertebral disc Z87.39 ; HTN (hypertension) I10 ; Chronic pain G89.29 ; Anxiety F41.9 ; Depression F32.9 ; Parkinsons G20 ; Hypercholesteremia E78.0 and Hemorrhoid K64.9 [facility] [address] [place] [address] 82259- 8335 Mar, [id number] [place] [address] 29331- 3168 Mar, Major depressive disorder, recurrent episode, severe F33.2 and Posttraumatic stress disorder F43.10 [address] [address] 2546 Mar, [facility] [address] [place] [address] 13422 2546 Mar, [facility] [address] [place] [address] 56789 2546 Mar, PTSD (post-traumatic stress disorder) F43.10 [facility] [address] [place] [address] 40411 2546 Mar, Onychomycosis B35.1 and Hypertension, benign I10 [facility] [address] [place] [address] 38548 2546 Mar, Onychomycosis B35.1 and Hypertension, benign I10 [facility] [address] [place] [address] 06012 2546 Feb, PTSD (post-traumatic stress disorder) F43.10 [facility] [address], [place] [address] 2546 Feb, [facility] [address] [place] [address] 88390 2546 Feb, Major depressive disorder, recurrent episode, severe F33.2 and Posttraumatic stress disorder F43.10 [facility] [address], [place] [address] 2546 Jan, PTSD (post-traumatic stress disorder) F43.10 [facility] [address], [place] [address] 2546 Jan, Rash R21 [facility] [address] [place] [address] 34435 2546 Jan, PTSD (post-traumatic stress disorder) F43.10 [facility] [address], [place] [address] 2546 Jan, [facility] [address] [place] [address] 08138696- 1550 Dec, Neuropathy 355.9 [facility] [address] [place] [address] 82915- 0753 30 Dec, 2014 PTSD (post-traumatic stress disorder) F43.10 [facility] [address] [place] [address] 76843- 2985 29 Dec, 2014 MDD (major depressive disorder), recurrent episode, severe 296.33 and PTSD (post-traumatic stress disorder) 309.81 [facility] [address] [place] [address] 70361- 1681 Dec, [facility] [address] [place] [address] 03908- 4866 Dec, Ingrown toenail 703.0 [facility] [address] [place] [address] 32835- 0602 Dec, Posttraumatic stress disorder 309.81 [facility] [address] [place] [address] 22970- 6966 Nov, Depressive disorder, not elsewhere classified 311 and Anxiety state, unspecified 300.00 [facility] [address] [place] [address] 39608- 8412 Oct, Depressive disorder, not elsewhere classified 311 and Anxiety state, unspecified 300.00 [facility] [address] [place] [address] 27946- 7986 Oct, Depressive disorder, not elsewhere classified 311 ; Anxiety state, unspecified 300.00 and No condition on [place] II V71.09 [facility] [id number] [address] Oct, Dental examination V72.2 [facility] [id number] [place] [address] 71028- 1378 Oct, [facility] [address] [place] [address] 60650- 9694 August, [facility] [id number] [place] [address] 56774- 6483 August, Seizure 780.39 and IBS (irritable bowel syndrome) 564.1 [facility] [id number] [address]- 1426 14 Jul, 2014 [facility] [address] [facility] [id number] [place] [address]- 6476 Jul, [facility] [address] [place] [address], [place] [address]- 3586 Jun, [facility] [address] [facility] [id number] [place] [address], [place] [address]- 4121 Jun, [facility] [address] [place] [address], [place] [address]- 8264 Jun, [facility] [id number] [place] [address]- 2977 Jun, [facility] [id number] [place] [address], [place] [address]- 8452 Jun, [facility] [id number] [place] [address]- 8964 Jun, [facility] [address] [place] [address]- 2088 Jun, [facility] [id number] [place] [address]- 8831 Jun, [facility] [id number] [place] [address]- 1077 Jun, [facility] [address] [facility] [id number] [address]- 3294 Jun, [facility] [id number] [place] [address]- 0966 Jun, [facility] [id number] [place] [address]- 6076 Jun, [facility] [address] 1069 May, [facility] [address] [id number] [place] [address]- 9095 May, [facility] [place] [facility] [address] [id number] [place] [address]- 6762 Apr, [facility] [place] [facility] [address] [id number] [place] [address]- 2223 Apr, [facility] [place] [facility] [address] [id number] [place] [address]- 2043 Mar, [facility] [place] [facility] [address] [id number] [place] [address]- 8019 Mar, [facility] [place] [facility] [address] [id number] [place] [address]- 0183 Mar, [facility] [place] [facility] [address] [id number] [place] [address]- 1055 Mar, [facility] [place] [facility] [address] [id number] [place] [address]- 3400 Mar, [facility] [place] [facility] [address] [id number] [place] [address]- 3567 Mar, [facility] [place] [facility] [address] [id number] [place] [address]- 4214 Mar, [facility] [place] [facility] [address] [id number] [place] [address]- 9347 Mar, [facility] [place] [facility] [address] [id number] [place] [address]- 5753 Mar, [facility] [place] [facility] [address] [id number] [place] [address]- 8123 Mar, [facility] [place] [facility] [address] [id number] [place] [address] Mar, [facility] [place] [facility] [address] [id number] [place] [address] Mar, [facility] [place] [facility] [address] [id number] [place] [address] 03 Mar, 2014 [facility] [place] [facility] [address] [id number] [place] [address] Mar, [facility] [place] [facility] [address] [id number] [place] [address] Mar, [facility] [place] [facility] [address] [id number] [place] [address] Mar, [facility] [place] [facility] [address] [id number] [place] [address] Mar, [facility] [place] [facility] [address] [id number] [place] [address] Mar, [facility] [place] [facility] [address] [id number] [place] [address] Mar, [facility] [place] [facility] [address] [id number] [place] [address] Feb, [facility] [place] [facility] [address] [id number] [place] [address] 25 Feb, 2014 [facility] [place] [facility] [address] [id number] [place] [address] Feb, [facility] [place] [facility] [address] [facility] [id number] [place] [address] 18 Feb, 2014 [facility] [place] [facility] [address] [id number] [place] [address] 17 Feb, 2014 [facility] [place] [facility] [address] [id number], [place] [address] 17 Feb, 2014 [facility] [place] [facility] [address] [id number] [place] [address] 14 Feb, 2014 [facility] [place] [facility] [address] [id number] [place] [address] 14 Feb, 2014 [facility] [place] [facility] [address] [facility] [id number] [place] [address] 15 Jan, 2014 [facility] [place] [facility] [address] [id number] [place] [address] Jan, [facility] [place] [facility] [address] [id number] [place] [address] Nov, [facility] [place] [facility] [address] [id number] [place] [address] Nov, [facility] [place] [facility] [address] [id number] [place] [address] Oct, [facility] [place] [facility] [address] [id number] [place] [address] Oct, [facility] [place] [facility] [address] [id number] [place] [address] Oct, [facility] [place] [facility] [address] [id number] [place] [address] Oct, [facility] [place] [facility] [address] [id number] [place] [address] Oct, [facility] [place] [facility] [address] [id number] [place] [address] Sep, [facility] [place] [facility] [address] [id number] [place] [address] Sep, [facility] [place] [facility] [address] [id number] [place] [address] August, [facility] [place] [facility] [address] [id number] [place] [address] August, [facility] [place] [facility] [address] [id number] [place] [address] Jun, [facility] [place] [facility] [address] [id number] [place] [address] Jun, [facility] [place] [facility] [address] [id number] [place] [address] 99[address] Jun, [facility] [place] [facility] [address] [id number] [place] [address]- 6069 11 Jun, 2013 [facility] [place] [facility] [address] [id number] [place] [address]- [address]484 10 Jun, 2013 [facility] [place] [facility] [address] [id number] [place] [address]- [address] 10 Jun, 2013 [facility] [place] [facility] [address] [id number] [place] [address]- 2087 Jun, [facility] [place] [facility] [address] [id number] [place] [address] 89[address] Jun, [facility] [place] [facility] [address] [id number] [place] [address] 8136 Jun, [facility] [place] [facility] [address] [id number] [place] [address]- 6487 Jun, [facility] [place] [facility] [address] [id number] [place] [address] 4972 Jun, [facility] [place] [facility] [address] [id number] [place] [address]- 8250 Jun, [facility] [place] [facility] [address] [id number] [place] [address]- 4863 Jun, [facility] [place] [facility] [address] [id number] [place] [address]- 1527 Jun, [facility] [place] [facility] [address] [id number] [place] [address] 9050 May, [facility] [place] [facility] [address] [id number] [place] [address]- 5980 May, [facility] [place] [facility] [address] [id number] [place] [address]- 8527 Apr, [facility] [place] [facility] [address] [id number] [place] [address]- [address]161 Apr, [facility] [place] [facility] [address] [id number] [place] [address]- 9914 Mar, [facility] [place] [facility] [address] [id number] [place] [address] 2542 Mar, [facility] [address] [id number] [place] [address] 8416 Feb, [facility] [place] [facility] [address] [id number] [place] [address] 5041 Feb, [facility] [address] [id number] [place] [address] 7308 Feb, [facility] [place] [facility] [address] [id number] [place] [address] 0663 Feb, [facility] [address] [id number] [place] [address] 6637 Feb, [facility] [place] [facility] [address] [id number] [place] [address] 7782 Feb, [facility] [place] [facility] [address] [id number] [place] [address] 2980 Feb, [facility] [address] [id number] [place] [address] 0173 Jan, [facility] [place] [facility] [address] [id number] [place] [address] 6103 Jan, [facility] [address] [id number] [place] [address]- 1851 Dec, [facility] [place] [facility] [address] [id number] [place] [address] 3603 Dec, [facility] [place] [facility] [address] [id number] [place] [address]- [address]117 Nov, [facility] [place] [facility] [address] [id number] [place] [address]- 9620 Nov, [facility] [place] [facility] [address] [id number] [place] [address] 2546 Oct, [facility] [place] [facility] [address] [id number] [place] [address] 7464 Sep, [facility] [address] [id number] [place] [address]- 0958 Sep, [facility] [place] [facility] [address] [id number] [place] [address] 3841 August, [facility] [place] [facility] [address] [id number] [place] [address]- 2307 August, [facility] [place] [facility] [address] [id number] [place] [address]- 2481 August, [facility] [address] [id number] [place] [address]- 5245 Jul, [facility] [place] [facility] [address] [id number] [place] [address]- 7179 May, [facility] [place] [facility] [address] [id number] [place] [address] 9010 May, [facility] [place] [facility] [address] [id number], [place] [address] Apr, [facility] [place] [facility] [address] [id number] [place] [address] 7179 Apr, [facility] [place] [facility] [address] [id number], [place] [address] 72[address] Feb, [facility] [place] [facility] [address] [id number] [place] [address]- 9304 Feb, [facility] [place] [facility] [address] [id number], [place] [address]- [address] Jan, [facility] [place] [facility] [address] [id number] [place] [address]- 1381 Jan, [facility] [place] [facility] [address] [id number] [place] [address]- 4327 Jan, [facility] [place] [facility] [address] [id number] [place] [address]- 9824 Nov, [facility] [place] [facility] [address] [id number] [place] [address]- 6960 Nov, [facility] [place] [facility] [address] [id number] [place] [address]- 7955 Nov, [facility] [place] [facility] [address] [id number] [place] [address]- 8492 Nov, [facility] [place] [facility] [address] [id number] [place] [address]- 5437 Nov, [facility] [place] [facility] [address] [id number] [place] [address]- 9776 Oct, [facility] [place] [facility] [address] [id number] [place] [address]- 2871 Oct, [facility] [place] [facility] [address] [id number] [place] [address]- 0713 Oct, [facility] [place] [facility] [address] [id number] [place] [address]- 2588 Oct, [facility] [place] [facility] [address] [id number] [place] [address]- 6483 Oct, [facility] [place] [facility] [address] [id number] [place] [address]- 8137 Oct, [facility] [place] [facility] [address] [id number] [place] [address]- 8998 Oct, [facility] [place] [facility] [address] [id number] [place] [address]- 7895 Sep, [facility] [place] [facility] [address] [id number] [place] [address]- 6900 Sep, [facility] [place] [facility] [address] [id number] [place] [address]- 6701 Sep, [facility] [place] [facility] [address] [id number] [place] [address]- 6427 August, [facility] [place] [facility] [address] [id number] [place] [address]- 0734 Jul, [facility] [place] [facility] [address] [id number] [place] [address]- 1475 28 Jul, 2011 [facility] [address] [id number] [place] [address]- 3731 27 Jul, 2011 [facility] [place] [facility] [address] [id number] [place] [address]- 1654 16 Jul, 2011 [facility] [place] [facility] [address] [id number] [place] [address]- 8079 13 Jul, 2011 [facility] [place] [facility] [address] [id number] [place] [address]- 7170 Jun, [facility] [place] [facility] [address] [id number] [place] [address]- 5672 May, [facility] [place] [facility] [address] [id number] [place] [address]- 4707 Apr, [facility] [address] [id number] [place] [address]- 2027 Apr, [facility] [place] [facility] [address] [id number] [place] [address]- 9679 Apr, [facility] [address] [id number] [place] [address]- 8904 Apr, [facility] [place] [facility] [address] [id number] [place] [address]- 6249 Apr, [facility] [place] [facility] [address] [id number] [place] [address]- 1593 Apr, [facility] [place] [facility] [address] [id number] [place] [address]- 3110 Mar, [facility] [place] [facility] [address] [id number] [place] [address]- 9932 Mar, [facility] [place] [facility] [address] [id number] [place] [address]- 9473 Feb, [facility] [place] [facility] [address] [id number], [place] [address]- 1106 Nov, [facility] [address] [facility] [id number], [place] [address]- [address]64 Jun, [facility] [address] [facility] [id number], [place] [address]- 5243 Apr, [facility] [address] [facility] [id number], [place] [address]- 4892 Feb, [facility] [address] [id number], [place] [address]- 6137 Jan, [facility] [address] [facility] [id number] [place] [address]- 5839 Jan, [facility] [address] [facility] [id number], [place] [address]- 2499 Jan, [facility] [address] [facility] [id number], [place] [address]- 0547 Jan, [facility] [address] [facility] [id number], [place] [address]- 4532 Nov, [facility] [address] [facility] [id number], [place] [address]- 3275 Nov, [facility] [address] [facility] [id number], [place] [address]- 3351 Mar, [facility] [address] [facility] [id number], [place] [address]- 6205 Mar, [facility] [address] [facility] [id number], [place] [address]- 4657 Feb, [facility] [address] [facility] [id number][place] 4786 Feb, [facility] [address] [facility] [id number], [place] [address]673 Jan, [facility] [address] [facility] [id number], [place] [address]- 1346 10 May, 2008 IMMUNIZATIONS No Known Immunizations SOCIAL HISTORY Never Assessed REASON FOR VISIT Lab results PLAN OF CARE VITAL SIGNS MEDICATIONS Unknown [...]
--- OUTSIDE RECORDS SUMMARY | 2018-03-25 15:10 | XMS REPORT ---
Author Author NAYA JACKSON Organization [facility] Address [address] [place] [address] Care Team Providers Care Hotel [facility]el Room Service Supervisor Name Role Phone NAYA JACKSON Unavailable PROBLEMS Type Condition ICD9-CM Code [id number] Code Onset Dates Condition Status SNOMED Code Problem Hypertriglyceridemia E78.1 Active 541420148 Problem Other chronic pain G89.29 Active 12019925 Problem Cervical disc disease M50.90 Active 909982266 Problem Major depressive disorder, single episode, mild F32.0 Active 69521312 Problem Irritable bowel syndrome with diarrhea K58.0 Active 263672527 Problem Paresthesia of bilateral legs R20.2 Active 217378500 Problem Ulcerative pancolitis without complication K51.00 Active 565977912 Problem Abnormal mammogram R92.8 Active 382395235 Problem Polyneuropathy G62.9 Active 72235728 Problem PTSD (post-traumatic stress disorder) F43.10 Active 56677383 Problem Major depressive disorder, recurrent episode, severe F33.2 Active 615766195178 Problem HTN (hypertension) I10 Active 25253675 Problem Depression F32.9 Active 41298960 Problem Parkinsons G20 Active 35890811 Problem Anxiety F41.9 Active 13146248 Problem COPD (chronic obstructive pulmonary disease) J44.9 Active 28610203 Problem Annular psoriasis L40.8 Active 022039847 ALLERGIES No Information ENCOUNTERS Encounter Location Date Diagnosis [facility] [id number] [address] Nov, [facility] [address] [address] Oct, Chronic diarrhea K52.9 and Acute colitis K52.9 [facility] [id number] [address] Oct, Chronic diarrhea K52.9 [facility] [id number] [place] [address] 16275- 4546 Oct, Chronic diarrhea K52.9 and Edema of both legs R60.0 [facility] [id number] [place] [address] 55791- 2552 Sep, Medicare annual wellness visit, initial Z00.00 ; Parkinsons G20 ; COPD (chronic obstructive pulmonary disease) J44.9 ; Major depressive disorder, single episode, mild F32.0 ; HTN (hypertension) I10 ; Hypokalemia E87.6 and Adverse effect of carbonic-anhydrase inhibitors, benzothiadiazides and other diuretics, initial encounter T50.2X5A [facility] [id number] [place] [address] 40468- 4179 Sep, Localized edema R60.0 [facility] [id number] [place] [address] 10702- 5961 Sep, [facility] [id number] [place] [address] 79524- 8893 Sep, Major depressive disorder, single episode, mild F32.0 ; PTSD (post-traumatic stress disorder) F43.10 and Edema of both legs R60.0 [facility] [id number] [place] [address] 64937- 9432 August, Localized edema R60.0 [facility] [id number] [place] [address] 80353- 7136 August, Localized edema R60.0 ; Weight gain R63.5 and Irritable bowel syndrome with diarrhea K58.0 [facility] [id number] [place] [address] 71949- 4148 Jul, [facility] [id number] [place] [address] 70059- 3520 Jul, Elevated liver enzymes R74.8 [facility] [id number] [place] [address] 50883- 2572 Jul, Polyneuropathy G62.9 [facility] [id number] [place] [address] 74659- 0690 Jul, [facility] [id number] [place] [address] 89709- 6076 Jul, Cervical disc disease M50.90 [facility] [id number] [place] [address] 11599- 7969 Jul, Elevated liver enzymes R74.8 [facility] [id number] [place] [address] 76130- 2639 Jul, Polyneuropathy G62.9 ; Ulcerative pancolitis without complication K51.00 ; Depression F32.9 ; Leg weakness, bilateral R29.898 and Paresthesia of bilateral legs R20.2 [facility] [id number] [place] [address] 16722- 5728 Jul, Polyneuropathy G62.9 ; Ulcerative pancolitis without complication K51.00 ; Depression F32.9 ; Leg weakness, bilateral R29.898 and Paresthesia of bilateral legs R20.2 [facility] [id number] [place] [address] 70899- 1672 Jun, [facility] [id number] [place] [address] 88075- 4602 Jun, Fibrous breast lumps N63.0 [facility] [id number] [place] [address] 41814- 9379 Jun, Ulcerative pancolitis without complication K51.00 [facility] [id number] [place] [address] 61989- 5765 Jun, Abnormal mammogram R92.8 [facility] [id number] [place] [address] 37669- 9696 Jun, Breast density R92.2 [facility] [id number] [place] [address] 36110- 8125 Jun, [facility] [id number] [place] [address] 87168- 1517 Jun, PTSD (post-traumatic stress disorder) F43.10 [facility] [id number] [place] [address] 69531- 4041 May, [facility] [id number] [place] [address] 45278- 3618 May, Breast cancer screening Z12.31 and Fibrous breast lumps N63.0 [facility] [id number] [place] [address] 00220- 0761 Apr, Ulcerative pancolitis without complication K51.00 [facility] [id number] [place] [address] 67806- 3073 Apr, [facility] [id number] [place] [address] 69731- 2487 Apr, Ulcerative pancolitis without complication K51.00 ; Low back pain M54.5 and Other chronic pain G89.29 [facility] [id number] [place] [address] 47441- 6611 Dec, Cervical disc disease M50.90 and HTN (hypertension) I10 [facility] [id number] [place] [address] 18812- 8339 05 Dec, 2016 Moderate episode of recurrent major depressive disorder F33.1 and PTSD (post-traumatic stress disorder) F43.10 [facility] [id number] [place] [address] 71782- 4730 Oct, [facility] [id number] [place] [address] 80048- 7384 Oct, Irritable bowel syndrome with diarrhea K58.0 [id number] [place] [address] 68868- 0771 07 Oct, 2016 Irritable bowel syndrome with diarrhea K58.0 [facility] [id number] [place] [address] 17246- 6868 16 Sep, 2016 Diarrhea, unspecified type R19.7 ; Chronic pain G89.29 ; Hypertriglyceridemia E78.1 ; PTSD (post-traumatic stress disorder) F43.10 ; History of herniated intervertebral disc Z87.39 and Depression F32.9 [facility] [id number] [place] [address] 82989- 3750 August, Moderate episode of recurrent major depressive disorder F33.1 and PTSD (post-traumatic stress disorder) F43.10 [facility] [address] 45848- 8926 August, [facility] [facility] [address] 05189- 1619 Jul, [address] 85750- 0031 Jul, PTSD (post-traumatic stress disorder) F43.10 ; IBS ( irritable bowel syndrome) K58.9 ; HTN (hypertension) I10 ; Hypertriglyceridemia E78.1 ; Chronic pain G89.29 ; Anxiety F41.9 ; Depression F32.9 ; COPD (chronic obstructive pulmonary disease) J44.9 ; Irritable bowel syndrome with diarrhea K58.0 and Second degree hemorrhoids K64.1 [place] [address] 77550- 3106 Jul, PTSD (post-traumatic stress disorder) F43.10 [facility] [id number] [place] [address] 33117- 9092 Jul, [facility] [id number] [place] [address] 24334- 6055 Jun, [facility] [id number] [place] [address] 90414- 9847 Jun, HTN (hypertension) I10 [address] 58020- 7831 May, Depression F32.9 ; Post traumatic stress disorder F43.10 and Screening mammogram, encounter for Z12.[address] 18961- 5602 May, [facility] [id number] [place] [address] 36386- 2075 May, PTSD (post-traumatic stress disorder) F43.10 and Major depressive disorder in partial remission F32.4 [facility] [id number] [place] [address] 96296- 8616 May, PTSD (post-traumatic stress disorder) F43.10 ; IBS ( irritable bowel syndrome) K58.9 ; History of herniated intervertebral disc Z87.39 ; Anxiety F41.9 ; Depression F32.9 ; Hypertriglyceridemia E78.1 ; Eczema of both hands L30.9 ; HTN (hypertension) I10 and COPD (chronic obstructive pulmonary disease) J44.9 [facility] [address] [place] [address] 33363- 5361 Apr, Major depressive disorder in partial remission F32.4 and PTSD (post-traumatic stress disorder) F43.10 [facility] [address] [place] [address] 67245- 0263 Apr, PTSD (post-traumatic stress disorder) F43.10 [facility] [id number] [place] [address] 82315- 1454 Mar, IBS (irritable bowel syndrome) K58.9 ; PTSD (post-traumatic stress disorder) F43.10 ; COPD (chronic obstructive pulmonary disease) J44.9 ; History of herniated intervertebral disc Z87.39 ; HTN (hypertension) I10 ; Parkinsons G20 ; Annular psoriasis L40.8 and Hypertriglyceridemia E78.1 [facility] [address] [place] [address] 32873- 3009 Feb, [id number] [place] [address] 56469- 5282 Feb, Moderate episode of recurrent major depressive disorder F33.1 and PTSD (post-traumatic stress disorder) F43.10 [facility] [id number] [place] [address] 22558- 0902 Jan, Onychocryptosis L60.0 [facility] [id number] [place] [address] 55151- 8950 Dec, [facility] [address] 65804- 8541 Dec, Dizziness R42 ; PTSD (post-traumatic stress disorder) F43.10 ; Posttraumatic stress disorder F43.10 ; IBS (irritable bowel syndrome) K58.9 ; History of herniated intervertebral disc Z87.39 ; HTN (hypertension) I10 ; Chronic pain G89.29 and Hypercholesterolemia E78.0 [place] [address] 99394- 3456 Dec, [facility] [address] 56544- 8869 Dec, [facility] [address] 11752 -3482 Dec, Annular psoriasis L40.8 [facility] [address] 63730- 4186 Nov, [place] [address] 21654- 7665 Nov, [facility] [place] [id number] [place] [address] 72418- 2508 Nov, HTN (hypertension) I10 ; Chronic pain G89.29 ; Annular psoriasis L40.8 ; IBS (irritable bowel syndrome) K58.9 and Vision changes H53.9 [facility] [id number] [place] [address] 03626- 7949 Oct, [facility] [address] 31872- 2799 Oct, IBS (irritable bowel syndrome) K58.9 ; PTSD (post-traumatic stress disorder) F43.10 ; HTN (hypertension) I10 ; Depression F32.9 ; History of herniated intervertebral disc Z87.39 ; Anxiety F41.9 ; Chronic pain G89.29 and Hypercholesterolemia E78.0 [facility] [id number] [place] [address] 68769- 0054 Oct, Major depressive disorder in partial remission F32.4 and PTSD (post-traumatic stress disorder) F43.10 [facility] [id number] [place] [address] 01218- 2894 Oct, IBS (irritable bowel syndrome) K58.9 ; PTSD (post-traumatic stress disorder) F43.10 ; Major depressive disorder, recurrent episode, severe F33.2 ; Anxiety F41.9 and Impacted cerumen, unspecified laterality H61.20 [facility] [id number] [place] [address] 18295- 7927 Oct, Major depressive disorder in partial remission F32.4 ; Posttraumatic stress disorder F43.10 and Anxiety F41.9 [facility] [address] 95649- 3885 Sep, [facility] [facility] [address] 12720- 7646 Sep, Anxiety F41.9 ; Major depressive disorder, recurrent episode , mild F33.0 and Posttraumatic stress disorder F43.10 [facility] [id number] [place] [address] 72960- 5971 Sep, [facility] [id number] [place] [address] 45067- 2389 August, [facility] [id number] [place] [address] 95326- 7614 Jul, Contact dermatitis L25.9 [facility] [address] 37294- 9470 Jul, Major depressive disorder, recurrent episode, severe F33.2 ; Posttraumatic stress disorder F43.10 and Anxiety F41.9 [facility] [id number] [place] [address] 70946- 9097 Jul, [facility] [address] [place] [address] 82859- 1626 Jun, IBS (irritable bowel syndrome) K58.9 ; COPD (chronic obstructive pulmonary disease) J44.9 ; HTN (hypertension) I10 ; Chronic pain G89.29 ; Anxiety F41.9 ; PTSD (post-traumatic stress disorder) F43.10 ; Parkinsons G20 and Hypercholesterolemia E78.0 [id number] [place] [address] 62557- 0410 Jun, [facility] [place] [id number] [place] [address] 70801- 6194 Jun, Onychocryptosis L60.0 and Onychomycosis B35.1 [facility] [id number] [place] [address] 08326- 5398 May, [id number] [place] [address] 55432- 8131 May, IBS (irritable bowel syndrome) K58.9 ; COPD (chronic obstructive pulmonary disease) J44.9 ; History of herniated intervertebral disc Z87.39 ; HTN (hypertension) I10 ; Anxiety F41.9 ; Depression F32.9 and Major depressive disorder in partial remission F32.4 [facility] [id number] [place] [address] 50775- 9437 08 May, 2015 IBS (irritable bowel syndrome) K58.9 ; COPD (chronic obstructive pulmonary disease) J44.9 ; History of herniated intervertebral disc Z87.39 ; HTN (hypertension) I10 ; Anxiety F41.9 ; Depression F32.9 and Major depressive disorder in partial remission F32.4 [facility] [id number] [place] [address] 88314- 8035 May, [place] [id number] [place] [address] 65222- 5050 04 May, 2015 Anxiety F41.9 ; IBS (irritable bowel syndrome) K58.9 and Major depressive disorder in partial remission F32.4 [facility] [address] [address]- 1385 18 Apr, 2015 Encounter for screening mammogram for breast cancer Z12.31 [facility] [id number] [place] [address] 41355- 1640 15 Apr, 2015 [facility] [id number] [place] [address] 33582- 6702 11 Apr, 2015 [facility] [id number] [place] [address] 70965- 5360 Apr, COPD (chronic obstructive pulmonary disease) J44.9 ; HTN ( hypertension) I10 ; Chronic pain G89.29 ; Anxiety F41.9 ; PTSD (post-traumatic stress disorder) F43.10 and IBS (irritable bowel syndrome) K58.9 [address] [id number] [place] [address] 10575- 7933 Apr, PTSD (post-traumatic stress disorder) F43.10 [facility] [id number] [place] [address] 12299- 2626 08 Apr, 2015 Onychocryptosis L60.0 and Onychomycosis B35.[address] [place] [address] 98001- 8514 04 Apr, 2015 IBS (irritable bowel syndrome) K58.9 ; COPD (chronic obstructive pulmonary disease) J44.9 ; History of herniated intervertebral disc Z87.39 ; HTN (hypertension) I10 ; Chronic pain G89.29 ; Anxiety F41.9 ; Depression F32.9 ; Parkinsons G20 ; Hypercholesteremia E78.0 and Hemorrhoid K64.9 [facility] [id number] [place] [address] 01005- 8639 Mar, [address] [id number] [place] [address] 82956- 0836 Mar, Major depressive disorder, recurrent episode, severe F33.2 and Posttraumatic stress disorder F43.10 [id number] [address] 2546 Mar, [facility] [id number] [place] [address] 13449 2546 Mar, [facility] [id number] [place] [address] 32921 2546 Mar, PTSD (post-traumatic stress disorder) F43.10 [facility] [id number] [place] [address] 29671 2546 Mar, Onychomycosis B35.1 and Hypertension, benign I10 [facility] [id number] [place] [address] 23021 2546 Mar, Onychomycosis B35.1 and Hypertension, benign I10 [facility] [id number] [place] [address] 72783 2546 Feb, PTSD (post-traumatic stress disorder) F43.10 [facility] [address] [address] 2546 Feb, [facility] [address] [place] [address] 82172 2546 Feb, Major depressive disorder, recurrent episode, severe F33.2 and Posttraumatic stress disorder F43.10 [facility] [address] [address] 2546 Jan, PTSD (post-traumatic stress disorder) F43.10 [facility] [address] [address] 2546 Jan, Rash R21 [facility] [id number] [place] [address] 66586 2546 Jan, PTSD (post-traumatic stress disorder) F43.10 [facility] [address] [address] 2546 Jan, [facility] [address] [place] [address] 92045406- 4181 Dec, Neuropathy 355.9 [facility] [id number] [place] [address] 50290- 3931 30 Dec, 2014 PTSD (post-traumatic stress disorder) F43.10 [facility] [address] [place] [address] 01244- 6159 29 Dec, 2014 MDD (major depressive disorder), recurrent episode, severe 296.33 and PTSD (post-traumatic stress disorder) 309.81 [facility] [id number] [place] [address] 89649- 4044 Dec, [facility] [id number] [place] [address] 75425- 9750 Dec, Ingrown toenail 703.0 [facility] [id number] [place] [address] 78655- 6250 Dec, Posttraumatic stress disorder 309.81 [facility] [id number] [place] [address] 25790- 3464 Nov, Depressive disorder, not elsewhere classified 311 and Anxiety state, unspecified 300.00 [facility] [id number] [place] [address] 18286- 1507 Oct, Depressive disorder, not elsewhere classified 311 and Anxiety state, unspecified 300.00 [facility] [id number] [place] [address] 62731- 5614 Oct, Depressive disorder, not elsewhere classified 311 ; Anxiety state, unspecified 300.00 and No condition on Verona II V71.09 [facility] [id number] [id number] Oct, Dental examination V72.2 [facility] [id number] [place] [address] 41217- 5308 Oct, [facility] [id number] [place] [address] 26625- 1224 August, [facility] [id number] [place] [address] 68245- 8623 August, Seizure 780.39 and IBS (irritable bowel syndrome) 564.1 [facility] [id number] [place] [address]- 8556 14 Jul, 2014 [facility] [address] [facility] [id number] [place] [address]- 3336 Jul, [facility] [id number] [place] [address], [place] [address]- 1826 Jun, [facility] [address] [facility] [id number] [place] [address], [place] [address]- 7560 Jun, [facility] [id number] [place] [address], [place] [address]- 5235 Jun, [facility] [id number] [place] [address]- 7340 Jun, [facility] [id number] [place] [address], [place] [address]- 6840 Jun, [facility] [id number] [place] [address]- 0177 Jun, [facility] [address] [place] [address]- 0151 Jun, [facility] [id number] [place] [address]- 9507 Jun, [facility] [id number] [place] [address]- 7421 Jun, [facility] [address] [facility] [id number] [address]- 4133 Jun, [facility] [id number] [place] [address]- 1746 Jun, [facility] [id number] [place] [address]- 1576 Jun, [facility] [id number] 6713 May, [facility] [address] [id number] [place] [address]- 6903 May, [facility] [place] [facility] [address] [id number] [place] [address]- 7246 Apr, [facility] [place] [facility] [address] [id number] [place] [address]- 1352 Apr, [facility] [place] [facility] [address] [id number] [place] [address] Mar, [facility] [place] [facility] [address] [id number] [place] [address] Mar, [facility] [place] [facility] [address] [id number] [place] [address] Mar, [facility] [place] [facility] [address] [id number] [place] [address] Mar, [facility] [place] [facility] [address] [id number] [place] [address] Mar, [facility] [place] [facility] [address] [id number] [place] [address] Mar, [facility] [place] [facility] [address] [id number] [place] [address] Mar, [facility] [place] [facility] [address] [id number] [place] [address] Mar, [facility] [place] [facility] [address] [id number] [place] [address] Mar, [facility] [place] [facility] [address] [id number] [place] [address] Mar, [facility] [place] [facility] [address] [id number] [place] [address] Mar, [facility] [place] [facility] [address] [id number] [place] [address] Mar, [facility] [place] [facility] [address] [id number] [place] [address] 03 Mar, 2014 [facility] [place] [facility] [address] [id number] [place] [address] Mar, [facility] [place] [facility] [address] [id number] [place] [address] Mar, [facility] [place] [facility] [address] [id number] [place] [address] Mar, [facility] [place] [facility] [address] [id number] [place] [address] Mar, [facility] [place] [facility] [address] [id number] [place] [address]- [address] Mar, [facility] [place] [facility] [address] [id number] [place] [address] Mar, [facility] [place] [facility] [address] [id number] [place] [address] Feb, [facility] [place] [facility] [address] [id number] [place] [address] 25 Feb, 2014 [facility] [place] [facility] [address] [id number] [place] [address] Feb, [facility] [place] [facility] [address] [facility] [id number] [place] [address] 18 Feb, 2014 [facility] [place] [facility] [address] [id number] [place] [address] 17 Feb, 2014 [facility] [place] [facility] [address] [id number] [address] 17 Feb, 2014 [facility] [place] [facility] [address] [id number] [place] [address] 14 Feb, 2014 [facility] [place] [facility] [address] [id number] [place] [address] 70[address] 14 Feb, 2014 [facility] [place] [facility] [address] [facility] [id number] [place] [address] 15 Jan, 2014 [facility] [place] [facility] [address] [id number] [place] [address] Jan, [facility] [place] [facility] [address] [id number] [place] [address] Nov, [facility] [place] [facility] [address] [id number] [place] [address] 87[address] Nov, [facility] [place] [facility] [address] [id number] [place] [address] 8066 Oct, [facility] [place] [facility] [address] [id number] [place] [address] 2320 Oct, [facility] [place] [facility] [address] [id number] [place] [address] 5869 Oct, [facility] [place] [facility] [address] [id number] [place] [address] 114[address] Oct, [facility] [place] [facility] [address] [id number] [place] [address]- 1079 Oct, [facility] [place] [facility] [address] [id number] [place] [address] 8686 Sep, [facility] [place] [facility] [address] [id number] [place] [address] Sep, [facility] [place] [facility] [address] [id number] [place] [address] 8[address] August, [facility] [place] [facility] [address] [id number] [place] [address] 96[address] August, [facility] [place] [facility] [address] [id number] [place] [address]- 138[address] Jun, [facility] [place] [facility] [address] [id number] [place] [address]- 3168 Jun, [facility] [place] [facility] [address] [id number] [place] [address]- 2[address] Jun, [facility] [place] [facility] [address] [id number] [place] [address]- [address] 11 Jun, 2013 [facility] [place] [facility] [address] [id number] [place] [address]- [address] 10 Jun, 2013 [facility] [place] [facility] [address] [id number] [place] [address]- [address] 10 Jun, 2013 [facility] [place] [facility] [address] [id number] [place] [address]- 9485 Jun, [facility] [place] [facility] [address] [id number] [place] [address]- 5216 Jun, [facility] [place] [facility] [address] [id number] [place] [address]- 7971 Jun, [facility] [place] [facility] [address] [id number] [place] [address]- 0[address] Jun, [facility] [place] [facility] [address] [id number] [place] [address]- 7950 Jun, [facility] [place] [facility] [address] [id number] [place] [address]- 2557 Jun, [facility] [place] [facility] [address] [id number] [place] [address]- 7800 Jun, [facility] [place] [facility] [address] [id number] [place] [address]- 6436 Jun, [facility] [place] [facility] [address] [id number] [place] [address]- [address]127 May, [facility] [place] [facility] [address] [id number] [place] [address]- 57[address] May, [facility] [place] [facility] [address] [id number] [place] [address]- 2752 Apr, [facility] [place] [facility] [address] [id number] [place] [address]- 9882 Apr, [facility] [place] [facility] [address] [id number] [place] [address]- 3729 Mar, [facility] [place] [facility] [address] [id number] [place] [address]- 2540 Mar, [facility] [address] [id number] [place] [address]- 288[address] Feb, [facility] [place] [facility] [address] [id number] [place] [address]- 4438 Feb, [facility] [address] [id number] [place] [address]- 7682 Feb, [facility] [place] [facility] [address] [id number] [place] [address]- 4031 Feb, [facility] [address] [id number] [place] [address]- 3480 Feb, [facility] [place] [facility] [address] [id number] [place] [address]- 3250 Feb, [facility] [place] [facility] [address] [id number] [place] [address]- 7810 Feb, [facility] [address] [id number] [place] [address]- 8430 Jan, [facility] [place] [facility] [address] [id number] [place] [address]- 1415 Jan, [facility] [address] [id number] [place] [address]- 3074 Dec, [facility] [place] [facility] [address] [id number] [place] [address]- 1278 Dec, [facility] [place] [facility] [address] [id number] [place] [address]- 7696 Nov, [facility] [place] [facility] [address] [id number] [place] [address]- 5650 Nov, [facility] [place] [facility] [address] [id number] [place] [address]- 2546 Oct, [facility] [place] [facility] [address] [id number] [place] [address]- 6830 Sep, [facility] [address] [id number] [place] [address]- 5316 Sep, [facility] [place] [facility] [address] [id number] [place] [address]- 0009 August, [facility] [place] [facility] [address] [id number] [place] [address]- 3971 August, [facility] [place] [facility] [address] [id number] [place] [address]- 3879 August, [facility] [address] [id number] [place] [address]- 1632 Jul, [facility] [place] [facility] [address] [id number] [place] [address]- 4112 May, [facility] [place] [facility] [address] [id number] [place] [address]- 9003 May, [facility] [place] [facility] [address] [id number] [place] [address]- 6734 Apr, [facility] [place] [facility] [address] [id number] [place] [address]- 9566 Apr, [facility] [place] [facility] [address] [id number] [place] [address] 0[address] Feb, [facility] [place] [facility] [address] [id number] [place] [address]- 1085 Feb, [facility] [place] [facility] [address] [id number] [place] [address]- 2974 Jan, [facility] [place] [facility] [address] [id number] [place] [address]- 5637 Jan, [facility] [place] [facility] [address] [id number] [place] [address]- 4380 Jan, [facility] [place] [facility] [address] [id number] [place] [address]- 4279 Nov, [facility] [place] [facility] [address] [id number] [place] [address]- 0380 Nov, [facility] [place] [facility] [address] [id number] [place] [address]- 7490 Nov, [facility] [place] [facility] [address] [id number] [place] [address]- 1181 Nov, [facility] [place] [facility] [address] [id number] [place] [address]- 8777 Nov, [facility] [place] [facility] [address] [id number] [place] [address]- 4464 Oct, [facility] [place] [facility] [address] [id number] [place] [address]- 0111 Oct, [facility] [place] [facility] [address] [id number] [place] [address]- 2456 Oct, [facility] [place] [facility] [address] [id number] [place] [address]- 4844 Oct, [facility] [place] [facility] [address] [id number] [place] [address]- 3070 Oct, [facility] [place] [facility] [address] [id number] [place] [address]- 4101 Oct, [facility] [place] [facility] [address] [id number] [place] [address]- 8917 Oct, [facility] [place] [facility] [address] [id number] [place] [address]- 0759 Sep, [facility] [place] [facility] [address] [id number] [place] [address]- 4176 Sep, [facility] [place] [facility] [address] [id number] [place] [address]- 6241 Sep, [facility] [place] [facility] [address] [id number] [place] [address]- 4722 August, [facility] [place] [facility] [address] [id number] [place] [address]- 2249 Jul, [facility] [place] [facility] [address] [id number] [place] [address]- 1149 28 Jul, 2011 [facility] [address] [id number] [place] [address]- 3690 27 Jul, 2011 [facility] [place] [facility] [address] [id number] [place] [address]- 0104 16 Jul, 2011 [facility] [place] [facility] [address] [id number] [place] [address]- 1236 13 Jul, 2011 [facility] [place] [facility] [address] [id number] [place] [address]- 0587 Jun, [facility] [place] [facility] [address] [id number] [place] [address]- 9208 May, [facility] [place] [facility] [address] [id number] [place] [address]- 0209 Apr, [facility] [address] [id number] [place] [address]- 7924 Apr, [facility] [place] [facility] [address] [id number] [place] [address]- 1238 Apr, [facility] [address] [id number] [place] [address]- 8173 Apr, [facility] [place] [facility] [address] [id number] [place] [address]- 3926 Apr, [facility] [place] [facility] [address] [id number] [place] [address]- 0058 Apr, [facility] [place] [facility] [address] [id number] [place] [address]- 2134 Mar, [facility] [place] [facility] [address] [id number] [place] [address]- 8020 Mar, [facility] [place] [facility] [address] [id number] [place] [address]- 2660 Feb, [facility] [place] [facility] [address] [id number] [place] [address]- 4946 Nov, [facility] [address] [facility] [id number] [place] [address]- 0385 Jun, [facility] [address] [facility] [id number] [place] [address]- 9320 Apr, [facility] [address] [facility] [id number] [place] [address]- 5066 Feb, [facility] [address] [id number] [place] [address] 1942 Jan, [facility] [address] [facility] [id number] [place] [address]- 3837 Jan, [facility] [address] [facility] [id number] [place] [address]- 4177 Jan, [facility] [address] [facility] [id number] [place] [address]- 1552 Jan, [facility] [address] [facility] [id number] [place] [address]- 6504 Nov, [facility] [address] [facility] [id number] [place] [address]- 3482 Nov, [facility] [address] [facility] [id number] [place] [address]- 2373 Mar, [facility] [address] [facility] [id number] [place] [address]- 6000 Mar, [facility] [address] [facility] [id number] [place] [address]- 8533 Feb, [facility] [address] [facility] [id number] [place] [address] Feb, [facility] [address] [facility] [id number] [place] [address] Jan, [facility] [address] [facility] [id number] [place] [address]- 2311 10 May, 2008 IMMUNIZATIONS No Known Immunizations SOCIAL HISTORY Never Assessed REASON FOR VISIT Lab (walk-in) PLAN OF CARE VITAL SIGNS MEDICATIONS Unknown Medications RESULTS No Results PROCEDURES Procedure Date Ordered Result Body Site [facility] August 04, 2017 NADINE SNYDER* August 04, 2017 INSTRUCTIONS MEDICATIONS ADMINISTERED No Known [...]
--- OUTSIDE RECORDS SUMMARY | 2018-03-25 15:10 | XMS REPORT ---
Author Author NAYA JACKSON Organization [facility] Address [address] [place] [address] Care Team Providers Care Market Analysis Director Name Role Phone NAYA JACKSON Unavailable PROBLEMS Type Condition ICD9-CM Code BIO28-VA Code Onset Dates Condition Status SNOMED Code Problem Hypertriglyceridemia E78.1 Active 992914472 Problem Other chronic pain G89.29 Active 48118753 Problem Cervical disc disease M50.90 Active 870880172 Problem Major depressive disorder, single episode, mild F32.0 Active 41368329 Problem Irritable bowel syndrome with diarrhea K58.0 Active 495651541 Problem Paresthesia of bilateral legs R20.2 Active 746255100 Problem Ulcerative pancolitis without complication K51.00 Active 173781446 Problem Abnormal mammogram R92.8 Active 960355533 Problem Polyneuropathy G62.9 Active 08935996 Problem PTSD (post-traumatic stress disorder) F43.10 Active 92854904 Problem Major depressive disorder, recurrent episode, severe F33.2 Active 900924257992 Problem HTN (hypertension) I10 Active 73915481 Problem Depression F32.9 Active 53259713 Problem Parkinsons G20 Active 84319763 Problem Anxiety F41.9 Active 22380078 Problem COPD (chronic obstructive pulmonary disease) J44.9 Active 50227282 Problem Annular psoriasis L40.8 Active 958843483 ALLERGIES No Information ENCOUNTERS Encounter Location Date Diagnosis [facility] [id number] [address] Nov, [facility] [address] [address] Oct, Chronic diarrhea K52.9 and Acute colitis K52.9 [facility] [id number] [address] Oct, Chronic diarrhea K52.9 [facility] [id number] [place] [address] 28663- 1684 Oct, Chronic diarrhea K52.9 and Edema of both legs R60.0 [place] [id number] [place] [address] 64299- 4671 Sep, Medicare annual wellness visit, initial Z00.00 ; Parkinsons G20 ; COPD (chronic obstructive pulmonary disease) J44.9 ; Major depressive disorder, single episode, mild F32.0 ; HTN (hypertension) I10 ; Hypokalemia E87.6 and Adverse effect of carbonic-anhydrase inhibitors, benzothiadiazides and other diuretics, initial encounter T50.2X5A [place] [id number] [place] [address] 34098- 5366 Sep, Localized edema R60.0 [place] [id number] [place] [address] 94311- 0287 Sep, [place] [id number] [place] [address] 03526- 5091 Sep, Major depressive disorder, single episode, mild F32.0 ; PTSD (post-traumatic stress disorder) F43.10 and Edema of both legs R60.0 [place] [id number] [place] [address] 82996- 7377 August, Localized edema R60.0 [place] [id number] [place] [address] 22027- 3582 August, Localized edema R60.0 ; Weight gain R63.5 and Irritable bowel syndrome with diarrhea K58.0 [place] [id number] [place] [address] 38052- 6715 Jul, [place] [id number] [place] [address] 86112- 5517 Jul, Elevated liver enzymes R74.8 [place] [address] [place] [address] 22838- 2668 Jul, Polyneuropathy G62.9 [place] [id number] [place] [address] 22374- 8405 Jul, [place] [id number] [place] [address] 77929- 7867 Jul, Cervical disc disease M50.90 [place] [id number] [place] [address] 28647- 0421 Jul, Elevated liver enzymes R74.8 [place] [id number] [place] [address] 26294- 5293 Jul, Polyneuropathy G62.9 ; Ulcerative pancolitis without complication K51.00 ; Depression F32.9 ; Leg weakness, bilateral R29.898 and Paresthesia of bilateral legs R20.2 [place] [id number] [place] [address] 58282- 7594 Jul, Polyneuropathy G62.9 ; Ulcerative pancolitis without complication K51.00 ; Depression F32.9 ; Leg weakness, bilateral R29.898 and Paresthesia of bilateral legs R20.2 [place] [id number] [place] [address] 94737- 2982 Jun, [place] [id number] [place] [address] 20981- 7081 Jun, Fibrous breast lumps N63.0 [place] [id number] [place] [address] 02129- 8359 Jun, Ulcerative pancolitis without complication K51.00 [place] [address] [place] [address] 04869- 2449 Jun, Abnormal mammogram R92.8 [place] [id number] [place] [address] 60976- 8504 Jun, Breast density R92.2 [place] [id number] [place] [address] 37040- 9318 Jun, [place] [id number] [place] [address] 40530- 2295 Jun, PTSD (post-traumatic stress disorder) F43.10 [place] [id number] [place] [address] 56054- 1106 May, [place] [id number] [place] [address] 07532- 5647 May, Breast cancer screening Z12.31 and Fibrous breast lumps N63.0 [place] [id number] [place] [address] 87815- 4775 Apr, Ulcerative pancolitis without complication K51.00 [place] [id number] [place] [address] 89972- 6069 Apr, [place] [id number] [place] [address] 82752- 0970 Apr, Ulcerative pancolitis without complication K51.00 ; Low back pain M54.5 and Other chronic pain G89.29 [place] [id number] [place] [address] 14764- 9671 Dec, Cervical disc disease M50.90 and HTN (hypertension) I10 [place] [id number] [place] [address] 52522- 7436 05 Dec, 2016 Moderate episode of recurrent major depressive disorder F33.1 and PTSD (post-traumatic stress disorder) F43.10 [place] [id number] [place] [address] 66616- 3871 Oct, [place] [id number] [place] [address] 35352- 3231 Oct, Irritable bowel syndrome with diarrhea K58.0 [address] [id number] [place] [address] 92846- 8009 07 Oct, 2016 Irritable bowel syndrome with diarrhea K58.0 [place] [id number] [place] [address] 85667- 1858 16 Sep, 2016 Diarrhea, unspecified type R19.7 ; Chronic pain G89.29 ; Hypertriglyceridemia E78.1 ; PTSD (post-traumatic stress disorder) F43.10 ; History of herniated intervertebral disc Z87.39 and Depression F32.9 [place] [id number] [place] [address] 47508- 5463 August, Moderate episode of recurrent major depressive disorder F33.1 and PTSD (post-traumatic stress disorder) F43.10 [place] [address] 92151- 7275 August, [place] [address] 00841- 7235 Jul, [address] 23145- 7898 Jul, PTSD (post-traumatic stress disorder) F43.10 ; IBS ( irritable bowel syndrome) K58.9 ; HTN (hypertension) I10 ; Hypertriglyceridemia E78.1 ; Chronic pain G89.29 ; Anxiety F41.9 ; Depression F32.9 ; COPD (chronic obstructive pulmonary disease) J44.9 ; Irritable bowel syndrome with diarrhea K58.0 and Second degree hemorrhoids K64.1 [place] [address] 53953- 9891 Jul, PTSD (post-traumatic stress disorder) F43.10 [place] [id number] [place] [address] 77750- 4536 Jul, [place] [id number] [place] [address] 70748- 6351 Jun, [place] [id number] [place] [address] 91206- 7453 Jun, HTN (hypertension) I10 [address] 30352- 2566 May, Depression F32.9 ; Post traumatic stress disorder F43.10 and Screening mammogram, encounter for Z12.[address] 67508- 8928 May, [place] [id number] [place] [address] 45550- 9268 May, PTSD (post-traumatic stress disorder) F43.10 and Major depressive disorder in partial remission F32.4 [place] [id number] [place] [address] 26520- 5610 May, PTSD (post-traumatic stress disorder) F43.10 ; IBS ( irritable bowel syndrome) K58.9 ; History of herniated intervertebral disc Z87.39 ; Anxiety F41.9 ; Depression F32.9 ; Hypertriglyceridemia E78.1 ; Eczema of both hands L30.9 ; HTN (hypertension) I10 and COPD (chronic obstructive pulmonary disease) J44.9 [place] [address] [place] [address] 86981- 6674 Apr, Major depressive disorder in partial remission F32.4 and PTSD (post-traumatic stress disorder) F43.10 [place] [address] [place] [address] 98744- 3911 Apr, PTSD (post-traumatic stress disorder) F43.10 [place] [id number] [place] [address] 62108- 2656 Mar, IBS (irritable bowel syndrome) K58.9 ; PTSD (post-traumatic stress disorder) F43.10 ; COPD (chronic obstructive pulmonary disease) J44.9 ; History of herniated intervertebral disc Z87.39 ; HTN (hypertension) I10 ; Parkinsons G20 ; Annular psoriasis L40.8 and Hypertriglyceridemia E78.1 [place] [address] [place] [address] 33188- 2364 Feb, [place] [id number] [place] [address] 43929- 4203 Feb, Moderate episode of recurrent major depressive disorder F33.1 and PTSD (post-traumatic stress disorder) F43.10 [place] [id number] [place] [address] 73427- 1318 Jan, Onychocryptosis L60.0 [facility] [id number] [place] [address] 67417- 0174 Dec, [facility] [address] 28006- 2159 Dec, Dizziness R42 ; PTSD (post-traumatic stress disorder) F43.10 ; Posttraumatic stress disorder F43.10 ; IBS (irritable bowel syndrome) K58.9 ; History of herniated intervertebral disc Z87.39 ; HTN (hypertension) I10 ; Chronic pain G89.29 and Hypercholesterolemia E78.0 [place] [address] 56014- 7546 Dec, [facility] [address] 33868- 2442 Dec, [facility] [address] 70165 -8339 Dec, Annular psoriasis L40.8 [facility] [address] 88655- 1541 Nov, [place] [address] 18708- 2323 Nov, [place] [id number] [place] [address] 02884- 9240 Nov, HTN (hypertension) I10 ; Chronic pain G89.29 ; Annular psoriasis L40.8 ; IBS (irritable bowel syndrome) K58.9 and Vision changes H53.9 [facility] [id number] [place] [address] 04739- 1276 Oct, [facility] [address] 91130- 0860 Oct, IBS (irritable bowel syndrome) K58.9 ; PTSD (post-traumatic stress disorder) F43.10 ; HTN (hypertension) I10 ; Depression F32.9 ; History of herniated intervertebral disc Z87.39 ; Anxiety F41.9 ; Chronic pain G89.29 and Hypercholesterolemia E78.0 [place] [id number] [place] [address] 37026- 0717 Oct, Major depressive disorder in partial remission F32.4 and PTSD (post-traumatic stress disorder) F43.10 [place] [id number] [place] [address] 45772- 0483 Oct, IBS (irritable bowel syndrome) K58.9 ; PTSD (post-traumatic stress disorder) F43.10 ; Major depressive disorder, recurrent episode, severe F33.2 ; Anxiety F41.9 and Impacted cerumen, unspecified laterality H61.20 [place] [id number] [place] [address] 78394- 2994 Oct, Major depressive disorder in partial remission F32.4 ; Posttraumatic stress disorder F43.10 and Anxiety F41.9 [place] [address] 90951- 2102 Sep, [place] [address] 62811- 1949 Sep, Anxiety F41.9 ; Major depressive disorder, recurrent episode , mild F33.0 and Posttraumatic stress disorder F43.10 [place] [id number] [place] [address] 16221- 3127 Sep, [place] [id number] [place] [address] 87048- 3542 August, [place] [id number] [place] [address] 87385- 7344 Jul, Contact dermatitis L25.9 [place] [address] 97650- 3914 Jul, Major depressive disorder, recurrent episode, severe F33.2 ; Posttraumatic stress disorder F43.10 and Anxiety F41.9 [place] [id number] [place] [address] 39888- 9038 Jul, [place] [address] [place] [address] 58002- 1483 Jun, IBS (irritable bowel syndrome) K58.9 ; COPD (chronic obstructive pulmonary disease) J44.9 ; HTN (hypertension) I10 ; Chronic pain G89.29 ; Anxiety F41.9 ; PTSD (post-traumatic stress disorder) F43.10 ; Parkinsons G20 and Hypercholesterolemia E78.0 [id number] [place] [address] 78493- 1603 Jun, [place] [id number] [place] [address] 05510- 8054 Jun, Onychocryptosis L60.0 and Onychomycosis B35.1 [place] [id number] [place] [address] 08354- 8953 May, [address] [id number] [place] [address] 13645- 3679 May, IBS (irritable bowel syndrome) K58.9 ; COPD (chronic obstructive pulmonary disease) J44.9 ; History of herniated intervertebral disc Z87.39 ; HTN (hypertension) I10 ; Anxiety F41.9 ; Depression F32.9 and Major depressive disorder in partial remission F32.4 [place] [id number] [place] [address] 66022- 7871 08 May, 2015 IBS (irritable bowel syndrome) K58.9 ; COPD (chronic obstructive pulmonary disease) J44.9 ; History of herniated intervertebral disc Z87.39 ; HTN (hypertension) I10 ; Anxiety F41.9 ; Depression F32.9 and Major depressive disorder in partial remission F32.4 [place] [id number] [place] [address] 44257- 0215 May, [place] [id number] [place] [address] 27341- 9069 04 May, 2015 Anxiety F41.9 ; IBS (irritable bowel syndrome) K58.9 and Major depressive disorder in partial remission F32.4 [place] [address] [address]- 2366 18 Apr, 2015 Encounter for screening mammogram for breast cancer Z12.31 [place] [id number] [place] [address] 35709- 5084 15 Apr, 2015 [place] [id number] [place] [address] 22501- 2342 11 Apr, 2015 [place] [id number] [place] [address] 76649- 7528 Apr, COPD (chronic obstructive pulmonary disease) J44.9 ; HTN ( hypertension) I10 ; Chronic pain G89.29 ; Anxiety F41.9 ; PTSD (post-traumatic stress disorder) F43.10 and IBS (irritable bowel syndrome) K58.9 [place] [id number] [place] [address] 48532- 3784 Apr, PTSD (post-traumatic stress disorder) F43.10 [place] [id number] [place] [address] 22469- 6472 08 Apr, 2015 Onychocryptosis L60.0 and Onychomycosis B35.[address] [place] [address] 24288- 1713 04 Apr, 2015 IBS (irritable bowel syndrome) K58.9 ; COPD (chronic obstructive pulmonary disease) J44.9 ; History of herniated intervertebral disc Z87.39 ; HTN (hypertension) I10 ; Chronic pain G89.29 ; Anxiety F41.9 ; Depression F32.9 ; Parkinsons G20 ; Hypercholesteremia E78.0 and Hemorrhoid K64.9 [place] [id number] [place] [address] 75469- 2447 Mar, [place] [id number] [place] [address] 96183- 4507 Mar, Major depressive disorder, recurrent episode, severe F33.2 and Posttraumatic stress disorder F43.10 [id number] [address] 2546 Mar, [facility] [address] [place] [address] 84305 2546 Mar, [facility] [address] [place] [address] 41857 2546 Mar, PTSD (post-traumatic stress disorder) F43.10 [facility] [id number] [place] [address] 00098 2546 Mar, Onychomycosis B35.1 and Hypertension, benign I10 [facility] [id number] [place] [address] 87182 2546 Mar, Onychomycosis B35.1 and Hypertension, benign I10 [facility] [id number] [place] [address] 55322 2546 Feb, PTSD (post-traumatic stress disorder) F43.10 [facility] [address], [place] [address] 2546 Feb, [facility] [address] [place] [address] 14311 2546 Feb, Major depressive disorder, recurrent episode, severe F33.2 and Posttraumatic stress disorder F43.10 [facility] [address], [place] [address] 2546 Jan, PTSD (post-traumatic stress disorder) F43.10 [facility] [address], [place] [address] 2546 Jan, Rash R21 [facility] [address] [place] [address] 84832 2546 Jan, PTSD (post-traumatic stress disorder) F43.10 [facility] [address] [address] 2546 Jan, [facility] [address] [place] [address] 45797158- 2468 Dec, Neuropathy 355.9 [facility] [address] [place] [address] 76630- 7219 30 Dec, 2014 PTSD (post-traumatic stress disorder) F43.10 [facility] [address] [place] [address] 71592- 6798 29 Dec, 2014 MDD (major depressive disorder), recurrent episode, severe 296.33 and PTSD (post-traumatic stress disorder) 309.81 [facility] [id number] [place] [address] 16679- 4189 Dec, [facility] [id number] [place] [address] 46832- 8541 Dec, Ingrown toenail 703.0 [facility] [id number] [place] [address] 95691- 0433 Dec, Posttraumatic stress disorder 309.81 [facility] [id number] [place] [address] 05668- 1911 Nov, Depressive disorder, not elsewhere classified 311 and Anxiety state, unspecified 300.00 [facility] [id number] [place] [address] 03470- 3457 Oct, Depressive disorder, not elsewhere classified 311 and Anxiety state, unspecified 300.00 [facility] [id number] [place] [address] 08043- 3328 Oct, Depressive disorder, not elsewhere classified 311 ; Anxiety state, unspecified 300.00 and No condition on Pickens II V71.09 [facility] [id number] [id number] Oct, Dental examination V72.2 [facility] [id number] [place] [address] 40638- 0147 Oct, [facility] [address] [place] [address] 80120- 5336 August, [facility] [id number] [place] [address] 31038- 4895 August, Seizure 780.39 and IBS (irritable bowel syndrome) 564.1 [facility] [id number] [place] [address]- 9746 14 Jul, 2014 [facility] [address] [facility] [id number] [place] [address]- 2976 Jul, [facility] [id number] [place] [address], [place] [address]- 6116 Jun, [facility] [address] [facility] [id number] [place] [address], [place] [address]- 3317 Jun, [facility] [id number] [place] [address], [place] [address]- 1179 Jun, [facility] [id number] [place] [address]- 7220 Jun, [facility] [id number] [place] [address], [place] [address]- 8128 Jun, [facility] [id number] [place] [address]- 8697 Jun, [facility] [address] [place] [address]- 7793 Jun, [facility] [id number] [place] [address]- 6872 Jun, [facility] [id number] [place] [address]- 2481 Jun, [facility] [address] [facility] [id number] [address]- 3588 Jun, [facility] [id number] [place] [address]- 5616 Jun, [facility] [id number] [place] [address]- 1946 Jun, [facility] [address] 7772 May, [facility] [address] [id number] [place] [address]- 1395 May, [facility] [place] [facility] [address] [id number] [place] [address]- 5512 Apr, [facility] [place] [facility] [address] [id number] [place] [address]- 4753 Apr, [facility] [place] [facility] [address] [id number] [place] [address]- 9031 Mar, [facility] [place] [facility] [address] [id number] [place] [address]- 8773 Mar, [facility] [place] [facility] [address] [id number] [place] [address]- 5140 Mar, [facility] [place] [facility] [address] [id number] [place] [address]- 6983 Mar, [facility] [place] [facility] [address] [id number] [place] [address]- 7645 Mar, [facility] [place] [facility] [address] [id number] [place] [address]- 9344 Mar, [facility] [place] [facility] [address] [id number] [place] [address]- [address] Mar, [facility] [place] [facility] [address] [id number] [place] [address]- [address] Mar, [facility] [place] [facility] [address] [id number] [place] [address]- [address] Mar, [facility] [place] [facility] [address] [id number] [place] [address] Mar, [facility] [place] [facility] [address] [id number] [place] [address]- [address] Mar, [facility] [place] [facility] [address] [id number] [place] [address]- [address] Mar, [facility] [place] [facility] [address] [id number] [place] [address] 03 Mar, 2014 [facility] [place] [facility] [address] [id number] [place] [address]- [address] Mar, [facility] [place] [facility] [address] [id number] [place] [address]- [address] Mar, [facility] [place] [facility] [address] [id number] [place] [address]- [address] Mar, [facility] [place] [facility] [address] [id number] [place] [address]- [address] Mar, [facility] [place] [facility] [address] [id number] [place] [address]- [address] Mar, [facility] [place] [facility] [address] [id number] [place] [address]- [address] Mar, [facility] [place] [facility] [address] [id number] [place] [address]- [address] Feb, [facility] [place] [facility] [address] [id number] [place] [address]- [address] 25 Feb, 2014 [facility] [place] [facility] [address] [id number] [place] [address]- [address] Feb, [facility] [place] [facility] [address] [facility] [id number] [place] [address] 18 Feb, 2014 [facility] [place] [facility] [address] [id number] [place] [address]- [address] 17 Feb, 2014 [facility] [place] [facility] [address] [id number], [place] [address] 17 Feb, 2014 [facility] [place] [facility] [address] [id number] [place] [address]- 9290 14 Feb, 2014 [facility] [place] [facility] [address] [id number] [place] [address] 14 Feb, 2014 [facility] [place] [facility] [address] [facility] [id number] [place] [address] 15 Jan, 2014 [facility] [place] [facility] [address] [id number] [place] [address] Jan, [facility] [place] [facility] [address] [id number] [place] [address] Nov, [facility] [place] [facility] [address] [id number] [place] [address] Nov, [facility] [place] [facility] [address] [id number] [place] [address] Oct, [facility] [place] [facility] [address] [id number] [place] [address] Oct, [facility] [place] [facility] [address] [id number] [place] [address]371 Oct, [facility] [place] [facility] [address] [id number] [place] [address]113 Oct, [facility] [place] [facility] [address] [id number] [place] [address] 46[address] Oct, [facility] [place] [facility] [address] [id number] [place] [address] Sep, [facility] [place] [facility] [address] [id number] [place] [address] 2856 Sep, [facility] [place] [facility] [address] [id number] [place] [address] 9123 August, [facility] [place] [facility] [address] [id number] [place] [address]- [address] August, [facility] [place] [facility] [address] [id number] [place] [address] 45[address] Jun, [facility] [place] [facility] [address] [id number] [place] [address] 7601 Jun, [facility] [place] [facility] [address] [id number] [place] [address] 2734 Jun, [facility] [place] [facility] [address] [id number] [place] [address]- [address] 11 Jun, 2013 [facility] [place] [facility] [address] [id number] [place] [address]- [address]32 10 Jun, 2013 [facility] [place] [facility] [address] [id number] [place] [address]- 2699 10 Jun, 2013 [facility] [place] [facility] [address] [id number] [place] [address]- 1738 Jun, [facility] [place] [facility] [address] [id number] [place] [address] 5994 Jun, [facility] [place] [facility] [address] [id number] [place] [address]- 7405 Jun, [facility] [place] [facility] [address] [id number] [place] [address]- 5885 Jun, [facility] [place] [facility] [address] [id number] [place] [address]- 1348 Jun, [facility] [place] [facility] [address] [id number] [place] [address]- 0193 Jun, [facility] [place] [facility] [address] [id number] [place] [address]- 7499 Jun, [facility] [place] [facility] [address] [id number] [place] [address]- 5463 Jun, [facility] [place] [facility] [address] [id number] [place] [address]- 0680 May, [facility] [place] [facility] [address] [id number] [place] [address]- 3762 May, [facility] [place] [facility] [address] [id number] [place] [address]- 1655 Apr, [facility] [place] [facility] [address] [id number] [place] [address]- 4440 Apr, [facility] [place] [facility] [address] [id number] [place] [address]- 9679 Mar, [facility] [place] [facility] [address] [id number] [place] [address]- 2543 Mar, [facility] [address] [id number] [place] [address]- 3304 Feb, [facility] [place] [facility] [address] [id number] [place] [address]- 2661 Feb, [facility] [address] [id number] [place] [address]- 2027 Feb, [facility] [place] [facility] [address] [id number] [place] [address]- 6169 Feb, [facility] [address] [id number] [place] [address]- 6068 Feb, [facility] [place] [facility] [address] [id number] [place] [address]- 7321 Feb, [facility] [place] [facility] [address] [id number] [place] [address]- 9873 Feb, [facility] [address] [id number] [place] [address]- 7204 Jan, [facility] [place] [facility] [address] [id number] [place] [address]- 6566 Jan, [facility] [address] [id number] [place] [address]- 2456 Dec, [facility] [place] [facility] [address] [id number] [place] [address]- 7651 Dec, [facility] [place] [facility] [address] [id number] [place] [address]- 6100 Nov, [facility] [place] [facility] [address] [id number] [place] [address]- 9649 Nov, [facility] [place] [facility] [address] [id number] [place] [address]- 2546 Oct, [facility] [place] [facility] [address] [id number] [place] [address]- 6667 Sep, [facility] [address] [id number] [place] [address]- 0511 Sep, [facility] [place] [facility] [address] [id number] [place] [address]- 8666 August, [facility] [place] [facility] [address] [id number] [place] [address]- 9815 August, [facility] [place] [facility] [address] [id number] [place] [address]- 7230 August, [facility] [address] [id number] [place] [address]- 3522 Jul, [facility] [place] [facility] [address] [id number] [place] [address]- 2814 May, [facility] [place] [facility] [address] [id number] [place] [address]- 6868 May, [facility] [place] [facility] [address] [id number], [place] [address] Apr, [facility] [place] [facility] [address] [id number] [place] [address]- 8020 Apr, [facility] [place] [facility] [address] [id number], [place] [address] 9875 Feb, [facility] [place] [facility] [address] [id number] [place] [address]- 0907 Feb, [facility] [place] [facility] [address] [id number], [place] [address] 9713 Jan, [facility] [place] [facility] [address] [id number] [place] [address]- 4155 Jan, [facility] [place] [facility] [address] [id number] [place] [address]- 6626 Jan, [facility] [place] [facility] [address] [id number] [place] [address]- 8987 Nov, [facility] [place] [facility] [address] [id number] [place] [address]- 6693 Nov, [facility] [place] [facility] [address] [id number] [place] [address]- 2140 Nov, [facility] [place] [facility] [address] [id number] [place] [address]- 4392 Nov, [facility] [place] [facility] [address] [id number] [place] [address]- 0924 Nov, [facility] [place] [facility] [address] [id number] [place] [address]- 1377 Oct, [facility] [place] [facility] [address] [id number] [place] [address]- 7579 Oct, [facility] [place] [facility] [address] [id number] [place] [address]- 0529 Oct, [facility] [place] [facility] [address] [id number] [place] [address]- 6580 Oct, [facility] [place] [facility] [address] [id number] [place] [address]- 6980 Oct, [facility] [place] [facility] [address] [id number] [place] [address]- 0769 Oct, [facility] [place] [facility] [address] [id number] [place] [address]- 5610 Oct, [facility] [place] [facility] [address] [id number] [place] [address]- 2686 Sep, [facility] [place] [facility] [address] [id number] [place] [address]- 9185 Sep, [facility] [place] [facility] [address] [id number] [place] [address]- 9737 Sep, [facility] [place] [facility] [address] [id number] [place] [address]- 8355 August, [facility] [place] [facility] [address] [id number] [place] [address]- 2025 Jul, [facility] [place] [facility] [address] [id number] [place] [address]- 4582 28 Jul, 2011 [facility] [address] [id number] [place] [address]- 3181 27 Jul, 2011 [facility] [place] [facility] [address] [id number] [place] [address]- 9134 16 Jul, 2011 [facility] [place] [facility] [address] [id number] [place] [address]- 2337 13 Jul, 2011 [facility] [place] [facility] [address] [id number] [place] [address]- 8528 Jun, [facility] [place] [facility] [address] [id number] [place] [address]- 0971 May, [facility] [place] [facility] [address] [id number] [place] [address]- 9233 Apr, [facility] [address] [id number] [place] [address]- 3207 Apr, [facility] [place] [facility] [address] [id number] [place] [address]- 7818 Apr, [facility] [address] [id number] [place] [address]- 8174 Apr, [facility] [place] [facility] [address] [id number] [place] [address]- 5624 Apr, [facility] [place] [facility] [address] [id number] [place] [address]- 3383 Apr, [facility] [place] [facility] [address] [id number] [place] [address]- 1791 Mar, [facility] [place] [facility] [address] [id number] [place] [address]- 5601 Mar, [facility] [place] [facility] [address] [id number] [place] [address]- 0414 Feb, [facility] [place] [facility] [address] [id number], [place] [address]- 3526 Nov, [facility] [address] [facility] [id number], [place] [address]- 4545 Jun, [facility] [address] [facility] [id number], [place] [address]- 2469 Apr, [facility] [address] [facility] [id number][place] [address]761 Feb, [facility] [address] [id number], [place] [address]- 8222 Jan, [facility] [address] [facility] [id number] [place] [address]- 5398 Jan, [facility] [address] [facility] [id number], [place] [address]- 2268 Jan, [facility] [address] [facility] [id number], [place] [address]- 9201 Jan, [facility] [address] [facility] [id number], [place] [address]- 3284 Nov, [facility] [address] [facility] [id number], [place] [address]- 9076 Nov, [facility] [address] [facility] [id number], [place] [address]- 2578 Mar, [facility] [address] [facility] [id number][place] 224[address] Mar, [facility] [address] [facility] [id number], [place] [address]- 2110 Feb, [facility] [address] [facility] [id number][place]- [address]808 Feb, [facility] [address] [facility] [id number][place]- 4495 Jan, [facility] [address] [facility] [id number], [place] [address]- 7303 10 May, 2008 IMMUNIZATIONS No Known Immunizations SOCIAL HISTORY Never Assessed REASON FOR VISIT MRI request PLAN OF CARE VITAL SIGNS MEDICATIONS Unknown [...]
--- OUTSIDE RECORDS SUMMARY | 2018-03-25 15:11 | XMS REPORT ---
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 Name Role Phone NAYA JACKSON Unavailable PROBLEMS Type Condition ICD9-CM Code ZZH59-JP Code Onset Dates Condition Status SNOMED Code Problem Hypertriglyceridemia E78.1 Active 790584824 Problem Other chronic pain G89.29 Active 17953731 Problem Cervical disc disease M50.90 Active 721082745 Problem Major depressive disorder, single episode, mild F32.0 Active 30006056 Problem Irritable bowel syndrome with diarrhea K58.0 Active 948801356 Problem Paresthesia of bilateral legs R20.2 Active 438003596 Problem Ulcerative pancolitis without complication K51.00 Active 844980556 Problem Abnormal mammogram R92.8 Active 571404340 Problem Polyneuropathy G62.9 Active 48599569 Problem PTSD (post-traumatic stress disorder) F43.10 Active 42843081 Problem Major depressive disorder, recurrent episode, severe F33.2 Active 791655031545 Problem HTN (hypertension) I10 Active 96774732 Problem Depression F32.9 Active 88993434 Problem Parkinsons G20 Active 96895069 Problem Anxiety F41.9 Active 57132509 Problem COPD (chronic obstructive pulmonary disease) J44.9 Active 59364801 Problem Annular psoriasis L40.8 Active 756357341 ALLERGIES Substance Reaction Event Type Date Status Latex Unknown Drug Allergy Jul, Active Budesonide rash/swelling Drug Allergy Jul, Active ENCOUNTERS Encounter Location Date Diagnosis [facility] [address] [facility] [id number] [address] Nov, [facility] [address] [id number] [address] Oct, Chronic diarrhea K52.9 and Acute colitis K52.9 [facility] [address] [id number] [address] Oct, Chronic diarrhea K52.9 [place] [id number] [place] [address] 80677- 7482 Oct, Chronic diarrhea K52.9 and Edema of both legs R60.0 [place] [id number] [place] [address] 60502- 3258 Sep, Medicare annual wellness visit, initial Z00.00 ; Parkinsons G20 ; COPD (chronic obstructive pulmonary disease) J44.9 ; Major depressive disorder, single episode, mild F32.0 ; HTN (hypertension) I10 ; Hypokalemia E87.6 and Adverse effect of carbonic-anhydrase inhibitors, benzothiadiazides and other diuretics, initial encounter T50.2X5A [place] [id number] [place] [address] 15191- 9331 Sep, Localized edema R60.0 [place] [id number] [place] [address] 06674- 7169 Sep, [place] [id number] [place] [address] 35850- 0043 Sep, Major depressive disorder, single episode, mild F32.0 ; PTSD (post-traumatic stress disorder) F43.10 and Edema of both legs R60.0 [place] [id number] [place] [address] 07749- 3959 August, Localized edema R60.0 [place] [id number] [place] [address] 91457- 1066 August, Localized edema R60.0 ; Weight gain R63.5 and Irritable bowel syndrome with diarrhea K58.0 [place] [id number] [place] [address] 15401- 3365 Jul, [place] [id number] [place] [address] 66628- 0306 Jul, Elevated liver enzymes R74.8 [id number] [place] [address] 64918- 0175 Jul, Polyneuropathy G62.9 [facility] [id number] [place] [address] 52342- 8973 Jul, [facility] [id number] [place] [address] 47258- 7563 Jul, Cervical disc disease M50.90 [facility] [id number] [place] [address] 52688- 1283 Jul, Elevated liver enzymes R74.8 [place] [id number] [place] [address] 91953- 7717 Jul, Polyneuropathy G62.9 ; Ulcerative pancolitis without complication K51.00 ; Depression F32.9 ; Leg weakness, bilateral R29.898 and Paresthesia of bilateral legs R20.2 [place] [id number] [place] [address] 01025- 5064 Jul, Polyneuropathy G62.9 ; Ulcerative pancolitis without complication K51.00 ; Depression F32.9 ; Leg weakness, bilateral R29.898 and Paresthesia of bilateral legs R20.2 [place] [id number] [place] [address] 58826- 7579 Jun, [place] [id number] [place] [address] 78911- 4963 Jun, Fibrous breast lumps N63.0 [place] [id number] [place] [address] 51656- 1500 Jun, Ulcerative pancolitis without complication K51.00 [place] [id number] [place] [address] 19004- 5103 Jun, Abnormal mammogram R92.8 [place] [id number] [place] [address] 80047- 6767 Jun, Breast density R92.2 [place] [id number] [place] [address] 49527- 5435 Jun, [place] [address] [address] Jun, PTSD (post-traumatic stress disorder) F43.10 [place] [id number] [place] [address] 63271- 8201 May, [place] [id number] [place] [address] 45263- 3971 May, Breast cancer screening Z12.31 and Fibrous breast lumps N63.0 [place] [id number] [place] [address] 24929- 6361 Apr, Ulcerative pancolitis without complication K51.00 [place] [id number] [place] [address] 02895- 1313 Apr, [place] [id number] [place] [address] 28080- 0595 Apr, Ulcerative pancolitis without complication K51.00 ; Low back pain M54.5 and Other chronic pain G89.29 [place] [id number] [place] [address] 49474- 7890 28 Dec, 2016 Cervical disc disease M50.90 and HTN (hypertension) I10 [place] [id number] [place] [address] 38968- 5650 05 Dec, 2016 Moderate episode of recurrent major depressive disorder F33.1 and PTSD (post-traumatic stress disorder) F43.10 [place] [address] [address] 2470 Oct, [place] [id number] [place] [address] 46372- 8410 Oct, Irritable bowel syndrome with diarrhea K58.0 [place] [id number] [place] [address] 02012- 8217 Oct, Irritable bowel syndrome with diarrhea K58.0 [place] [id number] [place] [address] 67108- 5423 Sep, Diarrhea, unspecified type R19.7 ; Chronic pain G89.29 ; Hypertriglyceridemia E78.1 ; PTSD (post-traumatic stress disorder) F43.10 ; History of herniated intervertebral disc Z87.39 and Depression F32.9 [place] [id number] [place] [address] 72914- 0149 August, Moderate episode of recurrent major depressive disorder F33.1 and PTSD (post-traumatic stress disorder) F43.10 [place] [id number] [place] [address] 30245- 3202 August, [place] [address] 08862- 3015 Jul, [place] [id number] [place] [address] 25894- 7713 Jul, PTSD (post-traumatic stress disorder) F43.10 ; IBS ( irritable bowel syndrome) K58.9 ; HTN (hypertension) I10 ; Hypertriglyceridemia E78.1 ; Chronic pain G89.29 ; Anxiety F41.9 ; Depression F32.9 ; COPD (chronic obstructive pulmonary disease) J44.9 ; Irritable bowel syndrome with diarrhea K58.0 and Second degree hemorrhoids K64.1 [place] [id number] [place] [address] 19474- 0718 Jul, PTSD (post-traumatic stress disorder) F43.10 [place] [id number] [place] [address] 58711- 5903 Jul, [place] [id number] [place] [address] 75407- 5323 Jun, [place] [id number] [place] [address] 17321- 0739 Jun, HTN (hypertension) I10 [place] [id number] [place] [address] 29966- 3384 May, Depression F32.9 ; Post traumatic stress disorder F43.10 and Screening mammogram, encounter for Z12.31 [place] [id number] [place] [address] 83395- 3172 May, [place] [address] 89123- 6310 May, PTSD (post-traumatic stress disorder) F43.10 and Major depressive disorder in partial remission F32.[address] 70117- 9678 May, PTSD (post-traumatic stress disorder) F43.10 ; IBS ( irritable bowel syndrome) K58.9 ; History of herniated intervertebral disc Z87.39 ; Anxiety F41.9 ; Depression F32.9 ; Hypertriglyceridemia E78.1 ; Eczema of both hands L30.9 ; HTN (hypertension) I10 and COPD (chronic obstructive pulmonary disease) J44.[address] 94537- 9434 Apr, Major depressive disorder in partial remission F32.4 and PTSD (post-traumatic stress disorder) F43.10 [place] [id number] [place] [address] 34863- 1031 Apr, PTSD (post-traumatic stress disorder) F43.10 [place] [id number] [place] [address] 81699- 1171 Mar, IBS (irritable bowel syndrome) K58.9 ; PTSD (post-traumatic stress disorder) F43.10 ; COPD (chronic obstructive pulmonary disease) J44.9 ; History of herniated intervertebral disc Z87.39 ; HTN (hypertension) I10 ; Parkinsons G20 ; Annular psoriasis L40.8 and Hypertriglyceridemia E78.1 [place] [address] 39357- 6923 Feb, [place] [id number] [place] [address] 95916- 2801 Feb, Moderate episode of recurrent major depressive disorder F33.1 and PTSD (post-traumatic stress disorder) F43.10 [facility] [id number] [place] [address] 13984- 7565 07 Jan, 2016 Onychocryptosis L60.0 [facility] [address] 84082- 2841 30 Dec, 2015 [facility] [address] 57475- 3187 Dec, Dizziness R42 ; PTSD (post-traumatic stress disorder) F43.10 ; Posttraumatic stress disorder F43.10 ; IBS (irritable bowel syndrome) K58.9 ; History of herniated intervertebral disc Z87.39 ; HTN (hypertension) I10 ; Chronic pain G89.29 and Hypercholesterolemia E78.0 [place] [address] 03518- 5003 15 Dec, 2015 [place] [address] 77401- 3292 Dec, [facility] [address] 76411 -9760 Dec, Annular psoriasis L40.8 [place] [address] 12584- 7998 Nov, [facility] [address] 79114- 4381 Nov, [place] [address] 39137- 2971 Nov, HTN (hypertension) I10 ; Chronic pain G89.29 ; Annular psoriasis L40.8 ; IBS (irritable bowel syndrome) K58.9 and Vision changes H53.9 [facility] [address] 81228- 3427 Oct, [facility] [address] 25240- 1395 Oct, IBS (irritable bowel syndrome) K58.9 ; PTSD (post-traumatic stress disorder) F43.10 ; HTN (hypertension) I10 ; Depression F32.9 ; History of herniated intervertebral disc Z87.39 ; Anxiety F41.9 ; Chronic pain G89.29 and Hypercholesterolemia E78.0 [place] [id number] [place] [address] 89076- 4825 Oct, Major depressive disorder in partial remission F32.4 and PTSD (post-traumatic stress disorder) F43.10 [place] [address] 07756- 9827 Oct, IBS (irritable bowel syndrome) K58.9 ; PTSD (post-traumatic stress disorder) F43.10 ; Major depressive disorder, recurrent episode, severe F33.2 ; Anxiety F41.9 and Impacted cerumen, unspecified laterality H61.20 [place] [address] 51005- 3265 Oct, Major depressive disorder in partial remission F32.4 ; Posttraumatic stress disorder F43.10 and Anxiety F41.9 [place] [address] 61397- 3324 Sep, [place] [address] 18320- 1353 Sep, Anxiety F41.9 ; Major depressive disorder, recurrent episode , mild F33.0 and Posttraumatic stress disorder F43.10 [place] [id number] [place] [address] 69377- 0824 Sep, [place] [address] 00074- 9362 August, [place] [address] 90342- 6815 Jul, Contact dermatitis L25.9 [place] [id number] [place] [address] 11102- 8103 Jul, Major depressive disorder, recurrent episode, severe F33.2 ; Posttraumatic stress disorder F43.10 and Anxiety F41.9 [place] [address] [place] [address] 25070- 0809 Jul, [place] [id number] [place] [address] 63358- 7519 Jun, IBS (irritable bowel syndrome) K58.9 ; COPD (chronic obstructive pulmonary disease) J44.9 ; HTN (hypertension) I10 ; Chronic pain G89.29 ; Anxiety F41.9 ; PTSD (post-traumatic stress disorder) F43.10 ; Parkinsons G20 and Hypercholesterolemia E78.0 [place] [id number] [place] [address] 54418- 6381 Jun, [address] 87399- 5357 Jun, Onychocryptosis L60.0 and Onychomycosis B35.1 [id number] [place] [address] 59954- 1379 May, [place] [id number] [place] [address] 60342- 7618 May, IBS (irritable bowel syndrome) K58.9 ; COPD (chronic obstructive pulmonary disease) J44.9 ; History of herniated intervertebral disc Z87.39 ; HTN (hypertension) I10 ; Anxiety F41.9 ; Depression F32.9 and Major depressive disorder in partial remission F32.4 [place] [id number] [place] [address] 98202- 5147 08 May, 2015 IBS (irritable bowel syndrome) K58.9 ; COPD (chronic obstructive pulmonary disease) J44.9 ; History of herniated intervertebral disc Z87.39 ; HTN (hypertension) I10 ; Anxiety F41.9 ; Depression F32.9 and Major depressive disorder in partial remission F32.4 [place] [id number] [place] [address] 39763- 3903 May, [place] [id number] [place] [address] 14173- 4812 May, Anxiety F41.9 ; IBS (irritable bowel syndrome) K58.9 and Major depressive disorder in partial remission F32.[address] 34205- 8478 18 Apr, 2015 Encounter for screening mammogram for breast cancer Z12.[address] 17026- 2309 15 Apr, [address] 90530- 5818 Apr, [address] 02021- 5942 Apr, COPD (chronic obstructive pulmonary disease) J44.9 ; HTN ( hypertension) I10 ; Chronic pain G89.29 ; Anxiety F41.9 ; PTSD (post-traumatic stress disorder) F43.10 and IBS (irritable bowel syndrome) K58.[address] 88697- 7639 Apr, PTSD (post-traumatic stress disorder) F43.[address] 98595- 6608 Apr, Onychocryptosis L60.0 and Onychomycosis B35.1 [place] [id number] [place] [address] 53147- 6429 Apr, IBS (irritable bowel syndrome) K58.9 ; COPD (chronic obstructive pulmonary disease) J44.9 ; History of herniated intervertebral disc Z87.39 ; HTN (hypertension) I10 ; Chronic pain G89.29 ; Anxiety F41.9 ; Depression F32.9 ; Parkinsons G20 ; Hypercholesteremia E78.0 and Hemorrhoid K64.9 [place] [id number] [place] [address] 82753- 5592 Mar, [address] 99891- 5426 Mar, Major depressive disorder, recurrent episode, severe F33.2 and Posttraumatic stress disorder F43.10 [facility] [address] [address]- 5536 Mar, [facility] [address] [place] [address] 02491 2546 Mar, [facility] [id number] [place] [address] 60386- 3446 Mar, PTSD (post-traumatic stress disorder) F43.10 [facility] [address] [place] [address] 39535 2546 Mar, Onychomycosis B35.1 and Hypertension, benign I10 [facility] [id number] [place] [address] 04346- 5316 Mar, Onychomycosis B35.1 and Hypertension, benign I10 [facility] [id number] [place] [address] 31066- 2646 Feb, PTSD (post-traumatic stress disorder) F43.10 [facility] [address] [address]- 9056 Feb, [facility] [address] [place] [address] 56205- 1116 Feb, Major depressive disorder, recurrent episode, severe F33.2 and Posttraumatic stress disorder F43.10 [facility] [address] [address]- 5266 Jan, PTSD (post-traumatic stress disorder) F43.10 [facility] [address] [address]- 2316 Jan, Rash R21 [facility] [id number] [place] [address] 08018- 5696 Jan, PTSD (post-traumatic stress disorder) F43.10 [facility] [address] [address]- 3566 Jan, [facility] [address] [place] [address] 41373- 8144 30 Dec, 2014 Neuropathy 355.9 [facility] [id number] [place] [address] 66377- 1847 30 Dec, 2014 PTSD (post-traumatic stress disorder) F43.10 [facility] [id number] [place] [address] 15906- 4553 29 Dec, 2014 MDD (major depressive disorder), recurrent episode, severe 296.33 and PTSD (post-traumatic stress disorder) 309.81 [facility] [id number] [place] [address] 89180- 5071 Dec, [facility] [id number] [place] [address] 06236- 9220 Dec, Ingrown toenail 703.0 [facility] [address] 04829- 0402 02 Dec, 2014 Posttraumatic stress disorder 309.81 [facility] [id number] [place] [address] 31764- 5464 Nov, Depressive disorder, not elsewhere classified 311 and Anxiety state, unspecified 300.00 [facility] [id number] [place] [address] 95819- 4441 Oct, Depressive disorder, not elsewhere classified 311 and Anxiety state, unspecified 300.00 [facility] [id number] [place] [address] 17928- 3598 Oct, Depressive disorder, not elsewhere classified 311 ; Anxiety state, unspecified 300.00 and No condition on [place] II V71.09 [facility] [id number] [place] [address] [id number] Oct, Dental examination V72.2 [facility] [id number] [place] [address] 72147- 9722 Oct, [facility] [id number] [place] [address] 37227- 7062 August, [facility] [address] [facility] [id number] [place] [address]- 2938 August, Seizure 780.39 and IBS (irritable bowel syndrome) 564.1 [facility] [address] [facility] [id number] [place] [address]- 6246 14 Jul, 2014 [facility] [address] [facility] [id number] [place] [address]- 6616 Jul, [facility] [address] [facility] [id number] [place] [address]- 8035 Jun, [facility] [address] [facility] [id number] [place] [address]- 4598 25 Jun, 2014 [facility] [address] [facility] [id number] [place] [address]- 4918 Jun, [facility] [id number] [address]- 1505 20 Jun, 2014 [facility] [address] [facility] [id number] [place] [address]- 9851 Jun, [facility] [id number] [place] [address]- 2775 Jun, [facility] [id number] [address]- 2801 Jun, [facility] [id number] [address]- 5119 20 Jun, 2014 [facility] [address] [facility] [id number] [address]- 3821 20 Jun, 2014 [facility] [address] [facility] [id number] [place] [address]- 0124 20 Jun, 2014 [facility] [address] [facility] [id number] [place] 3066 2014 [facility] [address] [id number] [address]- 9154 Jun, [facility] [place] [facility] [address] [id number] [place] [address]- 4633 May, [facility] [place] [facility] [address] [id number] [place] [address]- 4317 May, [facility] [place] [facility] [address] [id number] [place] [address]- 1396 Apr, [facility] [place] [facility] [address] [id number] [place] [address]- 0547 Apr, [facility] [place] [facility] [address] [id number] [place] [address]- 5786 Mar, [facility] [place] [facility] [address] [id number] [place] [address]- 7969 Mar, [facility] [place] [facility] [address] [id number] [place] [address]- 6515 Mar, [facility] [place] [facility] [address] [id number] [place] [address]- 7782 Mar, [facility] [place] [facility] [address] [id number] [place] [address]- 0127 Mar, [facility] [place] [facility] [address] [id number] [place] [address]- 6682 Mar, [facility] [place] [facility] [address] [id number] [place] [address]- 3918 Mar, [facility] [place] [facility] [address] [id number] [place] [address]- 1440 Mar, [facility] [place] [facility] [address] [id number] [place] [address]- 4035 Mar, [facility] [place] [facility] [address] [id number] [place] [address]- 5045 Mar, [facility] [place] [facility] [address] [id number] [place] 5521 Mar, [facility] [place] [facility] [address] [id number] [place] [address]- 6940 Mar, [facility] [place] [facility] [address] [id number] [place] [address]- 4982 Mar, [facility] [place] [facility] [address] [id number] [place] 7501 Mar, [facility] [place] [facility] [address] [id number] [place] [address]- 8375 Mar, [facility] [place] [facility] [address] [id number] [place] [address]- 7377 Mar, [facility] [place] [facility] [address] [id number] [place] [address]- 2024 Mar, [facility] [place] [facility] [address] [id number] [place] [address]- 9397 Mar, [facility] [place] [facility] [address] [id number] [place] [address] Mar, [facility] [place] [facility] [address] [id number] [place] [address] Feb, [facility] [place] [facility] [address] [id number] [place] [address] Feb, [facility] [place] [facility] [address] [id number] [place] [address] Feb, [facility] [place] [facility] [address] [id number] [place] [address] Feb, [facility] [place] [facility] [address] [id number] [place] [address] 17 Feb, 2014 [facility] [place] [facility] [address] [id number] [place] [address] 17 Feb, 2014 [facility] [place] [facility] [address] [id number] [place] [address] Feb, [facility] [place] [facility] [address] [id number] [place] [address] Feb, [facility] [place] [facility] [address] [id number] [place] [address] 15 Jan, 2014 [facility] [place] [facility] [address] [id number] [place] [address] Jan, [facility] [place] [facility] [address] [id number] [place] [address] Nov, [facility] [place] [facility] [address] [id number] [place] [address] Nov, [facility] [place] [facility] [address] [id number] [place] [address] Oct, [facility] [place] [facility] [address] [id number] [place] [address] Oct, [facility] [place] [facility] [address] [id number] [place] [address] Oct, [facility] [place] [facility] [address] [id number] [place] [address] Oct, [facility] [place] [facility] [address] [id number] [place] [address] Oct, [facility] [place] [facility] [address] [id number] [place] [address] Sep, [facility] [place] [facility] [address] [id number] [place] [address] Sep, [facility] [place] [facility] [address] [id number] [place] [address] August, [facility] [place] [facility] [address] [id number] [place] [address] August, [facility] [place] [facility] [address] [id number] [place] [address] Jun, [facility] [place] [facility] [address] [id number] [place] [address] Jun, [facility] [place] [facility] [address] [id number] [place] [address] Jun, [facility] [place] [facility] [address] [id number] [place] [address] Jun, [facility] [place] [facility] [address] [id number] [place] [address] Jun, [facility] [place] [facility] [address] [id number] [place] [address] Jun, [facility] [place] [facility] [address] [id number] [place] [address] Jun, [facility] [place] [facility] [address] [id number] [place] [address] Jun, [facility] [place] [facility] [address] [id number] [place] [address] Jun, [facility] [place] [facility] [address] [id number] [place] [address] Jun, [facility] [place] [facility] [address] [id number] [place] [address] Jun, [facility] [place] [facility] [address] [id number] [place] [address]65 Jun, [facility] [place] [facility] [address] [id number] [place] [address]- 8584 Jun, [facility] [place] [facility] [address] [id number] [place] [address] Jun, [facility] [place] [facility] [address] [id number] [place] [address] May, [facility] [place] [facility] [address] [id number] [place] [address] May, [facility] [place] [facility] [address] [id number] [place] [address] Apr, [facility] [place] [facility] [address] [id number] [place] [address] Apr, [facility] [place] [facility] [address] [id number] [place] [address] Mar, [facility] [place] [facility] [address] [id number] [place] [address] Mar, [facility] [place] [facility] [address] [id number] [place] [address] Feb, [facility] [place] [facility] [address] [id number] [place] [address] Feb, [facility] [place] [facility] [address] [id number] [place] [address]60 Feb, [facility] [place] [facility] [address] [id number] [place] [address] Feb, [facility] [place] [facility] [address] [id number] [place] [address] Feb, [facility] [place] [facility] [address] [id number] [place] [address]- [address]757 Feb, [facility] [place] [facility] [address] [id number] [place] [address] 60[address] Feb, [facility] [place] [facility] [address] [id number] [place] [address] 99[address] Jan, [facility] [place] [facility] [address] [id number] [place] [address] Jan, [facility] [place] [facility] [address] [id number] [place] [address] 6[address] Dec, [facility] [place] [facility] [address] [id number] [place] [address] Dec, [facility] [place] [facility] [address] [id number] [place] [address] 114[address] Nov, [facility] [place] [facility] [address] [id number] [place] [address] Nov, [facility] [place] [facility] [address] [id number] [place] [address] 1210 Oct, [facility] [place] [facility] [address] [id number] [place] [address] Sep, [facility] [place] [facility] [address] [id number] [place] [address]166 Sep, [facility] [place] [facility] [address] [id number] [place] [address]- 89[address] August, [facility] [place] [facility] [address] [id number] [place] [address]- [address]1 August, [facility] [place] [facility] [address] [id number] [place] [address] 89[address] August, [facility] [place] [facility] [address] [id number] [place] [address]- 74[address] Jul, [facility] [address] [id number] [place] [address] May, [facility] [place] [facility] [address] [id number] [place] [address] 9532 May, [facility] [address] [id number] [place] [address]104 Apr, [facility] [address] [id number] [place] [address]- 113[address] Apr, [facility] [place] [facility] [address] [id number] [place] [address]- 3942 Feb, [facility] [place] [facility] [address] [id number] [place] [address]- 0184 Feb, [facility] [place] [facility] [address] [id number] [place] [address]- 4[address] Jan, [facility] [place] [facility] [address] [id number] [place] [address]- 0683 Jan, [facility] [place] [facility] [address] [id number] [place] [address]- 7621 Jan, [facility] [place] [facility] [address] [id number] [place] [address]- 6854 Nov, [facility] [place] [facility] [address] [id number] [place] [address]- 3528 Nov, [facility] [place] [facility] [address] [id number] [place] [address] Nov, [facility] [place] [facility] [address] [id number] [place] [address]- 1706 Nov, [facility] [place] [facility] [address] [id number] [place] [address] 7724 Nov, [facility] [place] [facility] [address] [id number] [place] [address]- 4507 Oct, [facility] [place] [facility] [address] [id number] [place] [address]- 4765 Oct, [facility] [place] [facility] [address] [id number] [place] [address]- 6740 Oct, [facility] [place] [facility] [address] [id number] [place] [address] 3305 Oct, [facility] [place] [facility] [address] [id number] [place] [address] 3232 Oct, [facility] [place] [facility] [address] [id number] [place] [address]- 2616 Oct, [facility] [place] [facility] [address] [id number] [place] [address]- 1525 Oct, [facility] [place] [facility] [address] [id number] [place] [address]- 3660 Sep, [facility] [place] [facility] [address] [id number] [place] [address]- 2430 Sep, [facility] [place] [facility] [address] [id number] [place] [address]- 8136 Sep, [facility] [place] [facility] [address] [id number] [place] [address]- 1609 August, [facility] [place] [facility] [address] [id number] [place] [address]- 3798 30 Jul, 2011 [facility] [address] [id number] [place] [address]- 1520 28 Jul, 2011 [facility] [address] [id number] [place] [address]- 1302 27 Jul, 2011 [facility] [address] [id number] [place] [address]- 8864 16 Jul, 2011 [facility] [address] [id number] [place] [address]- 0553 13 Jul, 2011 [facility] [address] [id number] [place] [address]- 1373 Jun, [facility] [address] [id number] [place] [address]- 7352 May, [facility] [address] [id number] [place] [address]- 0591 Apr, [facility] [address] [id number] [place] [address]- 0168 Apr, [facility] [address] [id number] [place] [address]- 1420 Apr, [facility] [address] [id number] [place] [address]- 1522 Apr, [facility] [address] [id number] [place] [address]- 3006 Apr, [facility] [address] [id number] [place] [address]- 0453 Apr, [facility] [place] [facility] [address] [id number] [place] [address]- 9264 Mar, [facility] [address] [id number] [place] [address]- 9856 Mar, [facility] [address] [id number] [place] [address]- 0525 Feb, [facility] [place] [facility] [address] [id number] [place] [address]- 8588 Nov, [facility] [place] [facility] [address] [id number] [place] [address]- 9028 Jun, [facility] [place] [facility] [address] [id number] [place] [address]- [address]278 14 Apr, 2010 [facility] [place] [facility] [address] [id number] [place] [address]- 7660 Feb, [facility] [place] [facility] [address] [id number] [place] [address]- 1343 Jan, [facility] [place] [facility] [address] [id number] [place] [address]- 3700 Jan, [facility] [place] [facility] [address] [id number] [place] [address]- 5557 Jan, [facility] [place] [facility] [address] [id number] [place] [address]- 4088 Jan, [facility] [place] [facility] [address] [id number] [place] [address]- 7037 Nov, [facility] [place] [facility] [address] [id number] [place] [address]- 0661 Nov, [facility] [place] [facility] [address] [id number] [place] [address]- 4911 Mar, [facility] [place] [facility] [address] [id number] [address]- [address] Mar, [facility] [place] [facility] [address] [id number] [place] [address]- 1143 Feb, [facility] [place] [facility] [address] [id number] [place] [address]- 5258 Feb, [facility] [place] [facility] [address] [id number] [place] [address]- 7830 Jan, [facility] [place] [facility] [address] [id number] [place] [id number] May, IMMUNIZATIONS No Known Immunizations SOCIAL HISTORY Never Assessed REASON FOR VISIT ptsd----Elida PLAN OF CARE VITAL SIGNS Height 64 in 2017-08-03 Weight 169.5 lbs 2017-08-03 Temperature 98.1 degrees Fahrenheit 2017-08-03 Heart Rate 90 bpm 2017-08-03 Respiratory Rate 20 2017-08-03 BMI 29.09 kg/m2 2017-08-03 Blood pressure systolic 120 mmHg 2017-08-03 Blood pressure diastolic 60 mmHg 2017-08-03 MEDICATIONS Medication Instructions Dosage Frequency Start Date End Date Duration Status Verapamil HCl ER 240 MG Orally Once a day 1 tablet 24h Active Hydrochlorothiazide 12.5 MG Orally Once a day 1 tablet in the morning 24h 90 days Active Zocor 20 mg Orally Once a day 1 tablet in the evening 24h 30 days Not-Taking Atorvastatin Calcium 10 mg Orally Once a day 1 tablet 24h Apr, 30 day(s) Active Combivent Respimat 20-100 MCG/ACT Inhalation Four times a day 1 puff 6h Jul, Active Gabapentin 800MG TAKE ONE TABLET BY MOUTH THREE TIMES DAILY Active Celexa 20 mg Orally Once a day 1 tablet 24h Apr, Active Naproxen 500 mg Orally every 12 hrs 1 tablet with food or milk as needed 12h Jul, Active Parafon Forte DSC 500 mg Orally Three times a day 1 tablet 8h Apr, 30 Active RESULTS No Results PROCEDURES Procedure Date Ordered Result Body Site [facility] VISIT ESTABLISHED PATIENT August 03, 2017 INSTRUCTIONS MEDICATIONS ADMINISTERED No Known Medications [...]
--- OUTSIDE RECORDS SUMMARY | 2018-03-25 15:12 | XMS REPORT ---
Author Author NAYA JACKSON Organization [facility] Address [address] [place] [address] Care Team Providers Care Setter Induction Heating Equipment Name Role Phone NAYA JACKSON Unavailable PROBLEMS Type Condition ICD9-CM Code ZNO01-SM Code Onset Dates Condition Status SNOMED Code Problem Hypertriglyceridemia E78.1 Active 425186543 Problem Other chronic pain G89.29 Active 59961252 Problem Cervical disc disease M50.90 Active 116850321 Problem Major depressive disorder, single episode, mild F32.0 Active 40535661 Problem Irritable bowel syndrome with diarrhea K58.0 Active 812944157 Problem Paresthesia of bilateral legs R20.2 Active 883201268 Problem Ulcerative pancolitis without complication K51.00 Active 275211921 Problem Abnormal mammogram R92.8 Active 548012591 Problem Polyneuropathy G62.9 Active 21836340 Problem PTSD (post-traumatic stress disorder) F43.10 Active 05553943 Problem Major depressive disorder, recurrent episode, severe F33.2 Active 029851884737 Problem HTN (hypertension) I10 Active 32065341 Problem Depression F32.9 Active 75579916 Problem Parkinsons G20 Active 05945759 Problem Anxiety F41.9 Active 77649689 Problem COPD (chronic obstructive pulmonary disease) J44.9 Active 23202454 Problem Annular psoriasis L40.8 Active 800213302 ALLERGIES No Information ENCOUNTERS Encounter Location Date Diagnosis [facility] [id number] [address] Nov, [facility] [address] [address] Oct, Chronic diarrhea K52.9 and Acute colitis K52.9 [facility] [id number] [address] Oct, Chronic diarrhea K52.9 [facility] [id number] [place] [address] 90939- 9061 Oct, Chronic diarrhea K52.9 and Edema of both legs R60.0 [facility] [id number] [place] [address] 86808- 0287 Sep, Medicare annual wellness visit, initial Z00.00 ; Parkinsons G20 ; COPD (chronic obstructive pulmonary disease) J44.9 ; Major depressive disorder, single episode, mild F32.0 ; HTN (hypertension) I10 ; Hypokalemia E87.6 and Adverse effect of carbonic-anhydrase inhibitors, benzothiadiazides and other diuretics, initial encounter T50.2X5A [facility] [id number] [place] [address] 38695- 1654 Sep, Localized edema R60.0 [facility] [id number] [place] [address] 26444- 5418 Sep, [facility] [id number] [place] [address] 65824- 4613 Sep, Major depressive disorder, single episode, mild F32.0 ; PTSD (post-traumatic stress disorder) F43.10 and Edema of both legs R60.0 [facility] [id number] [place] [address] 17272- 3778 August, Localized edema R60.0 [facility] [id number] [place] [address] 52683- 2243 August, Localized edema R60.0 ; Weight gain R63.5 and Irritable bowel syndrome with diarrhea K58.0 [facility] [id number] [place] [address] 53430- 6402 Jul, [facility] [id number] [place] [address] 00989- 8682 Jul, Elevated liver enzymes R74.8 [facility] [address] [place] [address] 05539- 6311 Jul, Polyneuropathy G62.9 [facility] [id number] [place] [address] 30545- 2805 Jul, [facility] [id number] [place] [address] 55691- 0424 Jul, Cervical disc disease M50.90 [facility] [id number] [place] [address] 33972- 3383 Jul, Elevated liver enzymes R74.8 [facility] [id number] [place] [address] 64338- 4527 Jul, Polyneuropathy G62.9 ; Ulcerative pancolitis without complication K51.00 ; Depression F32.9 ; Leg weakness, bilateral R29.898 and Paresthesia of bilateral legs R20.2 [facility] [id number] [place] [address] 58599- 6434 Jul, Polyneuropathy G62.9 ; Ulcerative pancolitis without complication K51.00 ; Depression F32.9 ; Leg weakness, bilateral R29.898 and Paresthesia of bilateral legs R20.2 [facility] [id number] [place] [address] 33490- 2457 Jun, [facility] [id number] [place] [address] 14405- 2168 Jun, Fibrous breast lumps N63.0 [facility] [id number] [place] [address] 44912- 8343 Jun, Ulcerative pancolitis without complication K51.00 [facility] [address] [place] [address] 19348- 9560 Jun, Abnormal mammogram R92.8 [facility] [id number] [place] [address] 04285- 3466 Jun, Breast density R92.2 [facility] [id number] [place] [address] 78872- 4466 Jun, [facility] [id number] [place] [address] 99071- 7184 Jun, PTSD (post-traumatic stress disorder) F43.10 [facility] [id number] [place] [address] 04598- 2570 May, [facility] [id number] [place] [address] 74823- 6939 May, Breast cancer screening Z12.31 and Fibrous breast lumps N63.0 [facility] [id number] [place] [address] 08710- 9656 Apr, Ulcerative pancolitis without complication K51.00 [facility] [id number] [place] [address] 40093- 3305 Apr, [facility] [id number] [place] [address] 12512- 2792 Apr, Ulcerative pancolitis without complication K51.00 ; Low back pain M54.5 and Other chronic pain G89.29 [facility] [id number] [place] [address] 36757- 5043 Dec, Cervical disc disease M50.90 and HTN (hypertension) I10 [facility] [id number] [place] [address] 60607- 7239 05 Dec, 2016 Moderate episode of recurrent major depressive disorder F33.1 and PTSD (post-traumatic stress disorder) F43.10 [facility] [id number] [place] [address] 59616- 3249 Oct, [facility] [id number] [place] [address] 46998- 2236 Oct, Irritable bowel syndrome with diarrhea K58.0 [id number] [place] [address] 10163- 5280 07 Oct, 2016 Irritable bowel syndrome with diarrhea K58.0 [facility] [id number] [place] [address] 98521- 8719 16 Sep, 2016 Diarrhea, unspecified type R19.7 ; Chronic pain G89.29 ; Hypertriglyceridemia E78.1 ; PTSD (post-traumatic stress disorder) F43.10 ; History of herniated intervertebral disc Z87.39 and Depression F32.9 [facility] [id number] [place] [address] 00070- 5365 August, Moderate episode of recurrent major depressive disorder F33.1 and PTSD (post-traumatic stress disorder) F43.10 [place] [facility] [address] 70355- 9466 August, [facility] [address] 27368- 1095 Jul, [address] 35711- 8039 Jul, PTSD (post-traumatic stress disorder) F43.10 ; IBS ( irritable bowel syndrome) K58.9 ; HTN (hypertension) I10 ; Hypertriglyceridemia E78.1 ; Chronic pain G89.29 ; Anxiety F41.9 ; Depression F32.9 ; COPD (chronic obstructive pulmonary disease) J44.9 ; Irritable bowel syndrome with diarrhea K58.0 and Second degree hemorrhoids K64.1 [facility] [address] 98545- 5689 Jul, PTSD (post-traumatic stress disorder) F43.10 [facility] [id number] [place] [address] 08698- 1889 Jul, [facility] [id number] [place] [address] 55528- 3851 Jun, [facility] [id number] [place] [address] 99326- 3461 Jun, HTN (hypertension) I10 [address] 19628- 8614 May, Depression F32.9 ; Post traumatic stress disorder F43.10 and Screening mammogram, encounter for Z12.[address] 66548- 1444 May, [facility] [id number] [place] [address] 53356- 9622 May, PTSD (post-traumatic stress disorder) F43.10 and Major depressive disorder in partial remission F32.4 [facility] [id number] [place] [address] 12593- 0502 May, PTSD (post-traumatic stress disorder) F43.10 ; IBS ( irritable bowel syndrome) K58.9 ; History of herniated intervertebral disc Z87.39 ; Anxiety F41.9 ; Depression F32.9 ; Hypertriglyceridemia E78.1 ; Eczema of both hands L30.9 ; HTN (hypertension) I10 and COPD (chronic obstructive pulmonary disease) J44.9 [facility] [address] [place] [address] 00294- 0279 Apr, Major depressive disorder in partial remission F32.4 and PTSD (post-traumatic stress disorder) F43.10 [facility] [address] [place] [address] 07471- 3742 Apr, PTSD (post-traumatic stress disorder) F43.10 [facility] [id number] [place] [address] 79903- 2688 Mar, IBS (irritable bowel syndrome) K58.9 ; PTSD (post-traumatic stress disorder) F43.10 ; COPD (chronic obstructive pulmonary disease) J44.9 ; History of herniated intervertebral disc Z87.39 ; HTN (hypertension) I10 ; Parkinsons G20 ; Annular psoriasis L40.8 and Hypertriglyceridemia E78.1 [facility] [address] [place] [address] 78356- 6490 Feb, [id number] [place] [address] 66279- 7732 Feb, Moderate episode of recurrent major depressive disorder F33.1 and PTSD (post-traumatic stress disorder) F43.10 [facility] [id number] [place] [address] 26137- 3968 Jan, Onychocryptosis L60.0 [facility] [id number] [place] [address] 47504- 3826 Dec, [facility] [address] 13804- 2096 Dec, Dizziness R42 ; PTSD (post-traumatic stress disorder) F43.10 ; Posttraumatic stress disorder F43.10 ; IBS (irritable bowel syndrome) K58.9 ; History of herniated intervertebral disc Z87.39 ; HTN (hypertension) I10 ; Chronic pain G89.29 and Hypercholesterolemia E78.0 [address] [facility] [address] 74881- 7686 Dec, [facility] [address] 40928- 9911 Dec, [facility] [address] 60021 -8047 Dec, Annular psoriasis L40.8 [facility] [address] 56688- 2567 Nov, [facility] [address] 69779- 1058 Nov, [facility] [id number] [place] [address] 99343- 2808 Nov, HTN (hypertension) I10 ; Chronic pain G89.29 ; Annular psoriasis L40.8 ; IBS (irritable bowel syndrome) K58.9 and Vision changes H53.9 [facility] [id number] [place] [address] 11608- 4159 Oct, [facility] [address] 03616- 2514 Oct, IBS (irritable bowel syndrome) K58.9 ; PTSD (post-traumatic stress disorder) F43.10 ; HTN (hypertension) I10 ; Depression F32.9 ; History of herniated intervertebral disc Z87.39 ; Anxiety F41.9 ; Chronic pain G89.29 and Hypercholesterolemia E78.0 [facility] [id number] [place] [address] 51239- 5112 Oct, Major depressive disorder in partial remission F32.4 and PTSD (post-traumatic stress disorder) F43.10 [facility] [id number] [place] [address] 70624- 3154 Oct, IBS (irritable bowel syndrome) K58.9 ; PTSD (post-traumatic stress disorder) F43.10 ; Major depressive disorder, recurrent episode, severe F33.2 ; Anxiety F41.9 and Impacted cerumen, unspecified laterality H61.20 [facility] [id number] [place] [address] 61476- 4348 Oct, Major depressive disorder in partial remission F32.4 ; Posttraumatic stress disorder F43.10 and Anxiety F41.9 [facility] [address] 27975- 6253 Sep, [facility] [address] 06513- 0047 Sep, Anxiety F41.9 ; Major depressive disorder, recurrent episode , mild F33.0 and Posttraumatic stress disorder F43.10 [facility] [id number] [place] [address] 09387- 3294 Sep, [facility] [id number] [place] [address] 90322- 4942 August, [facility] [id number] [place] [address] 73613- 0145 Jul, Contact dermatitis L25.9 [facility] [address] 07362- 6939 Jul, Major depressive disorder, recurrent episode, severe F33.2 ; Posttraumatic stress disorder F43.10 and Anxiety F41.9 [facility] [id number] [place] [address] 88998- 7341 Jul, [address] [address] [place] [address] 63922- 5452 Jun, IBS (irritable bowel syndrome) K58.9 ; COPD (chronic obstructive pulmonary disease) J44.9 ; HTN (hypertension) I10 ; Chronic pain G89.29 ; Anxiety F41.9 ; PTSD (post-traumatic stress disorder) F43.10 ; Parkinsons G20 and Hypercholesterolemia E78.0 [id number] [place] [address] 49738- 5689 Jun, [facility] [id number] [place] [address] 93878- 9978 Jun, Onychocryptosis L60.0 and Onychomycosis B35.1 [facility] [id number] [place] [address] 79909- 8445 May, [id number] [place] [address] 79174- 1213 May, IBS (irritable bowel syndrome) K58.9 ; COPD (chronic obstructive pulmonary disease) J44.9 ; History of herniated intervertebral disc Z87.39 ; HTN (hypertension) I10 ; Anxiety F41.9 ; Depression F32.9 and Major depressive disorder in partial remission F32.4 [facility] [id number] [place] [address] 36764- 7722 08 May, 2015 IBS (irritable bowel syndrome) K58.9 ; COPD (chronic obstructive pulmonary disease) J44.9 ; History of herniated intervertebral disc Z87.39 ; HTN (hypertension) I10 ; Anxiety F41.9 ; Depression F32.9 and Major depressive disorder in partial remission F32.4 [facility] [id number] [place] [address] 88797- 6563 May, [facility] [id number] [place] [address] 22891- 6959 04 May, 2015 Anxiety F41.9 ; IBS (irritable bowel syndrome) K58.9 and Major depressive disorder in partial remission F32.4 [facility] [address] [address]- 9632 18 Apr, 2015 Encounter for screening mammogram for breast cancer Z12.31 [facility] [id number] [place] [address] 17108- 5089 15 Apr, 2015 [facility] [id number] [place] [address] 83489- 3343 11 Apr, 2015 [facility] [id number] [place] [address] 62561- 4459 Apr, COPD (chronic obstructive pulmonary disease) J44.9 ; HTN ( hypertension) I10 ; Chronic pain G89.29 ; Anxiety F41.9 ; PTSD (post-traumatic stress disorder) F43.10 and IBS (irritable bowel syndrome) K58.9 [id number] [place] [address] 06905- 3349 Apr, PTSD (post-traumatic stress disorder) F43.10 [facility] [id number] [place] [address] 81770- 8532 08 Apr, 2015 Onychocryptosis L60.0 and Onychomycosis B35.[address] [place] [address] 38458- 6921 04 Apr, 2015 IBS (irritable bowel syndrome) K58.9 ; COPD (chronic obstructive pulmonary disease) J44.9 ; History of herniated intervertebral disc Z87.39 ; HTN (hypertension) I10 ; Chronic pain G89.29 ; Anxiety F41.9 ; Depression F32.9 ; Parkinsons G20 ; Hypercholesteremia E78.0 and Hemorrhoid K64.9 [facility] [id number] [place] [address] 06945- 6155 Mar, [id number] [place] [address] 90366- 7901 Mar, Major depressive disorder, recurrent episode, severe F33.2 and Posttraumatic stress disorder F43.10 [address] [address] 2546 Mar, [facility] [address] [place] [address] 87526 2546 Mar, [facility] [address] [place] [address] 44790 2546 Mar, PTSD (post-traumatic stress disorder) F43.10 [facility] [id number] [place] [address] 51043 2546 Mar, Onychomycosis B35.1 and Hypertension, benign I10 [facility] [id number] [place] [address] 05812 2546 Mar, Onychomycosis B35.1 and Hypertension, benign I10 [facility] [id number] [place] [address] 58943 2546 Feb, PTSD (post-traumatic stress disorder) F43.10 [facility] [address] [address] 2546 Feb, [facility] [address] [place] [address] 23256 2546 Feb, Major depressive disorder, recurrent episode, severe F33.2 and Posttraumatic stress disorder F43.10 [facility] [address] [address] 2546 Jan, PTSD (post-traumatic stress disorder) F43.10 [facility] [address] [address] 2546 Jan, Rash R21 [facility] [address] [place] [address] 19511 2546 Jan, PTSD (post-traumatic stress disorder) F43.10 [facility] [address] [address] 2546 Jan, [facility] [address] [place] [address] 77486099- 9729 Dec, Neuropathy 355.9 [facility] [address] [place] [address] 74715- 0246 30 Dec, 2014 PTSD (post-traumatic stress disorder) F43.10 [facility] [address] [place] [address] 09826- 5423 29 Dec, 2014 MDD (major depressive disorder), recurrent episode, severe 296.33 and PTSD (post-traumatic stress disorder) 309.81 [facility] [id number] [place] [address] 31211- 2863 Dec, [facility] [id number] [place] [address] 47461- 8326 Dec, Ingrown toenail 703.0 [facility] [id number] [place] [address] 77351- 2950 Dec, Posttraumatic stress disorder 309.81 [facility] [id number] [place] [address] 01179- 5938 Nov, Depressive disorder, not elsewhere classified 311 and Anxiety state, unspecified 300.00 [facility] [id number] [place] [address] 00910- 5376 Oct, Depressive disorder, not elsewhere classified 311 and Anxiety state, unspecified 300.00 [facility] [id number] [place] [address] 80482- 7219 Oct, Depressive disorder, not elsewhere classified 311 ; Anxiety state, unspecified 300.00 and No condition on [place] II V71.09 [facility] [id number] [id number] Oct, Dental examination V72.2 [facility] [id number] [place] [address] 59929- 0850 Oct, [facility] [address] [place] [address] 45991- 7974 August, [facility] [id number] [place] [address] 42608- 2096 August, Seizure 780.39 and IBS (irritable bowel syndrome) 564.1 [facility] [id number] [place] [address]- 5356 14 Jul, 2014 [facility] [address] [facility] [id number] [place] [address]- 8056 Jul, [facility] [id number] [place] [address], [place] [address]- 8596 Jun, [facility] [address] [facility] [id number] [place] [address], [place] [address]- 6642 Jun, [facility] [id number] [place] [address], [place] [address]- 2536 Jun, [facility] [id number] [place] [address]- 1377 Jun, [facility] [id number] [place] [address], [place] [address]- 8098 Jun, [facility] [id number] [place] [address]- 8244 Jun, [facility] [address] [place] [address]- 7251 Jun, [facility] [id number] [place] [address]- 3129 Jun, [facility] [id number] [place] [address]- 8213 Jun, [facility] [address] [facility] [id number] [address]- 9437 Jun, [facility] [id number] [place] [address]- 3336 Jun, [facility] [id number] [place] [address]- 0326 Jun, [facility] [address] 9150 May, [facility] [address] [id number] [place] [address]- 4868 May, [facility] [place] [facility] [address] [id number] [place] [address]- 4578 Apr, [facility] [place] [facility] [address] [id number] [place] [address]- 8401 Apr, [facility] [place] [facility] [address] [id number] [place] [address]- 6133 Mar, [facility] [place] [facility] [address] [id number] [place] [address]- 6324 Mar, [facility] [place] [facility] [address] [id number] [place] [address]- 0878 Mar, [facility] [place] [facility] [address] [id number] [place] [address]- 1431 Mar, [facility] [place] [facility] [address] [id number] [place] [address]- 5910 Mar, [facility] [place] [facility] [address] [id number] [place] [address]- 9425 Mar, [facility] [place] [facility] [address] [id number] [place] [address] Mar, [facility] [place] [facility] [address] [id number] [place] [address] Mar, [facility] [place] [facility] [address] [id number] [place] [address] Mar, [facility] [place] [facility] [address] [id number] [place] [address] Mar, [facility] [place] [facility] [address] [id number] [place] [address] Mar, [facility] [place] [facility] [address] [id number] [place] [address] Mar, [facility] [place] [facility] [address] [id number] [place] [address] 03 Mar, 2014 [facility] [place] [facility] [address] [id number] [place] [address] Mar, [facility] [place] [facility] [address] [id number] [place] [address] Mar, [facility] [place] [facility] [address] [id number] [place] [address] Mar, [facility] [place] [facility] [address] [id number] [place] [address] Mar, [facility] [place] [facility] [address] [id number] [place] [address] Mar, [facility] [place] [facility] [address] [id number] [place] [address] Mar, [facility] [place] [facility] [address] [id number] [place] [address]- [address] Feb, [facility] [place] [facility] [address] [id number] [place] [address] 25 Feb, 2014 [facility] [place] [facility] [address] [id number] [place] [address]- [address] Feb, [facility] [place] [facility] [address] [facility] [id number] [place] [address]- [address] 18 Feb, 2014 [facility] [place] [facility] [address] [id number] [place] [address] 17 Feb, 2014 [facility] [place] [facility] [address] [id number] [address] 17 Feb, 2014 [facility] [place] [facility] [address] [id number] [place] [address] 14 Feb, 2014 [facility] [place] [facility] [address] [id number] [place] [address] 14 Feb, 2014 [facility] [place] [facility] [address] [facility] [id number] [place] [address] 15 Jan, 2014 [facility] [place] [facility] [address] [id number] [place] [address] 64[address] Jan, [facility] [place] [facility] [address] [id number] [place] [address] Nov, [facility] [place] [facility] [address] [id number] [place] [address] Nov, [facility] [place] [facility] [address] [id number] [place] [address] Oct, [facility] [place] [facility] [address] [id number] [place] [address] Oct, [facility] [place] [facility] [address] [id number] [place] [address] 6561 Oct, [facility] [place] [facility] [address] [id number] [place] [address] 0821 Oct, [facility] [place] [facility] [address] [id number] [place] [address]200 Oct, [facility] [place] [facility] [address] [id number] [place] [address] Sep, [facility] [place] [facility] [address] [id number] [place] [address] 8296 Sep, [facility] [place] [facility] [address] [id number] [place] [address] 6678 August, [facility] [place] [facility] [address] [id number] [place] [address]44 August, [facility] [place] [facility] [address] [id number] [place] [address] Jun, [facility] [place] [facility] [address] [id number] [place] [address] 61[address] Jun, [facility] [place] [facility] [address] [id number] [place] [address] Jun, [facility] [place] [facility] [address] [id number] [place] [address] 4828 11 Jun, 2013 [facility] [place] [facility] [address] [id number] [place] [address]- 60[address] 10 Jun, 2013 [facility] [place] [facility] [address] [id number] [place] [address]- 2844 10 Jun, 2013 [facility] [place] [facility] [address] [id number] [place] [address]- 9073 Jun, [facility] [place] [facility] [address] [id number] [place] [address]- 6363 Jun, [facility] [place] [facility] [address] [id number] [place] [address] 3217 Jun, [facility] [place] [facility] [address] [id number] [place] [address]- 6665 Jun, [facility] [place] [facility] [address] [id number] [place] [address] 5[address] Jun, [facility] [place] [facility] [address] [id number] [place] [address]- 2669 Jun, [facility] [place] [facility] [address] [id number] [place] [address] 5499 Jun, [facility] [place] [facility] [address] [id number] [place] [address] 7512 Jun, [facility] [place] [facility] [address] [id number] [place] [address] 5617 May, [facility] [place] [facility] [address] [id number] [place] [address] 1658 May, [facility] [place] [facility] [address] [id number] [place] [address] 1375 Apr, [facility] [place] [facility] [address] [id number] [place] [address] 2748 Apr, [facility] [place] [facility] [address] [id number] [place] [address] 0874 Mar, [facility] [place] [facility] [address] [id number] [place] [address] 2547 Mar, [facility] [address] [id number] [place] [address] 4834 Feb, [facility] [place] [facility] [address] [id number] [place] [address]- 4528 Feb, [facility] [address] [id number] [place] [address]- 2209 Feb, [facility] [place] [facility] [address] [id number] [place] [address] 4197 Feb, [facility] [address] [id number] [place] [address]- 2497 Feb, [facility] [place] [facility] [address] [id number] [place] [address] 7904 Feb, [facility] [place] [facility] [address] [id number] [place] [address] 8693 Feb, [facility] [address] [id number] [place] [address]- 2655 Jan, [facility] [place] [facility] [address] [id number] [place] [address] 8731 Jan, [facility] [address] [id number] [place] [address]- 2709 Dec, [facility] [place] [facility] [address] [id number] [place] [address] 9901 Dec, [facility] [place] [facility] [address] [id number] [place] [address]- 1680 Nov, [facility] [place] [facility] [address] [id number] [place] [address]- 9029 Nov, [facility] [place] [facility] [address] [id number] [place] [address]- 2546 Oct, [facility] [place] [facility] [address] [id number] [place] [address]- 0625 Sep, [facility] [address] [id number] [place] [address]- 1372 Sep, [facility] [place] [facility] [address] [id number] [place] [address]- 5615 August, [facility] [place] [facility] [address] [id number] [place] [address]- 0805 August, [facility] [place] [facility] [address] [id number] [place] [address] 8722 August, [facility] [address] [id number] [place] [address] 0403 Jul, [facility] [place] [facility] [address] [id number] [place] [address]- 2129 May, [facility] [place] [facility] [address] [id number] [place] [address]- 8663 May, [facility] [place] [facility] [address] [id number] [place] [address] 2163 Apr, [facility] [place] [facility] [address] [id number] [place] [address]- 7460 Apr, [facility] [place] [facility] [address] [id number] [place] [address] 7849 Feb, [facility] [place] [facility] [address] [id number] [place] [address]- 6452 Feb, [facility] [place] [facility] [address] [id number] [place] [address]- [address]30 Jan, [facility] [place] [facility] [address] [id number] [place] [address]- 1413 Jan, [facility] [place] [facility] [address] [id number] [place] [address]- 4577 Jan, [facility] [place] [facility] [address] [id number] [place] [address]- 6903 Nov, [facility] [place] [facility] [address] [id number] [place] [address]- 3544 Nov, [facility] [place] [facility] [address] [id number] [place] [address]- 4392 Nov, [facility] [place] [facility] [address] [id number] [place] [address]- 3449 Nov, [facility] [place] [facility] [address] [id number] [place] [address]- 1388 Nov, [facility] [place] [facility] [address] [id number] [place] [address]- 5689 Oct, [facility] [place] [facility] [address] [id number] [place] [address]- 1174 Oct, [facility] [place] [facility] [address] [id number] [place] [address]- 0462 Oct, [facility] [place] [facility] [address] [id number] [place] [address]- 5376 Oct, [facility] [place] [facility] [address] [id number] [place] [address]- 8209 Oct, [facility] [place] [facility] [address] [id number] [place] [address]- 0488 Oct, [facility] [place] [facility] [address] [id number] [place] [address]- 5560 Oct, [facility] [place] [facility] [address] [id number] [place] [address]- 8123 Sep, [facility] [place] [facility] [address] [id number] [place] [address]- 0850 Sep, [facility] [place] [facility] [address] [id number] [place] [address]- 5852 Sep, [facility] [place] [facility] [address] [id number] [place] [address]- 9870 August, [facility] [place] [facility] [address] [id number] [place] [address]- 8409 Jul, [facility] [place] [facility] [address] [id number] [place] [address]- 0520 28 Jul, 2011 [facility] [address] [id number] [place] [address]- 1802 27 Jul, 2011 [facility] [place] [facility] [address] [id number] [place] [address]- 3790 16 Jul, 2011 [facility] [place] [facility] [address] [id number] [place] [address]- 0091 13 Jul, 2011 [facility] [place] [facility] [address] [id number] [place] [address]- 1675 Jun, [facility] [place] [facility] [address] [id number] [place] [address]- 0939 May, [facility] [place] [facility] [address] [id number] [place] [address]- 1489 Apr, [facility] [address] [id number] [place] [address]- 4708 Apr, [facility] [place] [facility] [address] [id number] [place] [address]- 8734 Apr, [facility] [address] [id number] [place] [address]- 6982 Apr, [facility] [place] [facility] [address] [id number] [place] [address]- 5897 Apr, [facility] [place] [facility] [address] [id number] [place] [address]- 4594 Apr, [facility] [place] [facility] [address] [id number] [place] [address]- 4183 Mar, [facility] [place] [facility] [address] [id number] [place] [address]- 5787 Mar, [facility] [place] [facility] [address] [id number] [place] [address]- 5182 Feb, [facility] [place] [facility] [address] [id number] [place] [address] 8846 Nov, [facility] [address] [facility] [id number] [place] [address]- 6439 Jun, [facility] [address] [facility] [id number] [place] [address]- 7203 Apr, [facility] [address] [facility] [id number] [place] [address]- 1841 Feb, [facility] [address] [facility] [id number] [place] [address]- 3748 Jan, [facility] [address] [facility] [id number] [place] [address]- 0061 Jan, [facility] [address] [facility] [id number] [place] [address]- 2764 Jan, [facility] [address] [facility] [id number] [place] [address]- 6655 Jan, [facility] [address] [facility] [id number] [place] [address]- 7816 Nov, [facility] [address] [facility] [id number] [place] [address]- 2248 Nov, [facility] [address] [facility] [id number] [place] [address]- 9034 Mar, [facility] [address] [facility] [id number] [place]ENTER[place] [address] Mar, [facility] [address] [facility] [id number] [place] [address]- 6924 Feb, [facility] [address] [facility] [id number] [place] [address]10 Feb, [facility] [address] [facility] [id number] [place]ENTER[place] [address] Jan, [facility] [address] [facility] [id number] [place] [address]- 6230 10 May, 2008 IMMUNIZATIONS No Known Immunizations SOCIAL HISTORY Never Assessed REASON FOR VISIT PA for chlorzoxazone PLAN OF CARE VITAL SIGNS MEDICATIONS Unknown [...]
--- OUTSIDE RECORDS SUMMARY | 2018-03-25 15:12 | XMS REPORT ---
Author Author NAYA JACKSON Organization [facility] Address [address] [place] [address] Care Team Providers Care Network Liaison Name Role Phone NAYA JACKSON Unavailable PROBLEMS Type Condition ICD9-CM Code CXZ42-DU Code Onset Dates Condition Status SNOMED Code Problem Hypertriglyceridemia E78.1 Active 218778056 Problem Other chronic pain G89.29 Active 48016940 Problem Cervical disc disease M50.90 Active 904619609 Problem Major depressive disorder, single episode, mild F32.0 Active 19394999 Problem Irritable bowel syndrome with diarrhea K58.0 Active 769419717 Problem Paresthesia of bilateral legs R20.2 Active 235462106 Problem Ulcerative pancolitis without complication K51.00 Active 314699655 Problem Abnormal mammogram R92.8 Active 723562537 Problem Polyneuropathy G62.9 Active 16976124 Problem PTSD (post-traumatic stress disorder) F43.10 Active 55081079 Problem Major depressive disorder, recurrent episode, severe F33.2 Active [id number] Problem HTN (hypertension) I10 Active 12802491 Problem Depression F32.9 Active 21843102 Problem Parkinsons G20 Active 77628015 Problem Anxiety F41.9 Active 68349692 Problem COPD (chronic obstructive pulmonary disease) J44.9 Active 05725091 Problem Annular psoriasis L40.8 Active 387380998 ALLERGIES No Information ENCOUNTERS Encounter Location Date Diagnosis [facility] [id number] [address] Nov, [facility] [address] [address] Oct, Chronic diarrhea K52.9 and Acute colitis K52.9 [facility] [id number] [address] 488[address] Oct, Chronic diarrhea K52.9 [facility] [id number] [place] [address] 49535- 6870 Oct, Chronic diarrhea K52.9 and Edema of both legs R60.0 [facility] [id number] [place] [address] 41666- 1301 Sep, Medicare annual wellness visit, initial Z00.00 ; Parkinsons G20 ; COPD (chronic obstructive pulmonary disease) J44.9 ; Major depressive disorder, single episode, mild F32.0 ; HTN (hypertension) I10 ; Hypokalemia E87.6 and Adverse effect of carbonic-anhydrase inhibitors, benzothiadiazides and other diuretics, initial encounter T50.2X5A [facility] [id number] [place] [address] 62031- 8846 Sep, Localized edema R60.0 [facility] [id number] [place] [address] 96456- 8715 Sep, [facility] [id number] [place] [address] 70211- 4233 Sep, Major depressive disorder, single episode, mild F32.0 ; PTSD (post-traumatic stress disorder) F43.10 and Edema of both legs R60.0 [facility] [id number] [place] [address] 22971- 0922 August, Localized edema R60.0 [facility] [id number] [place] [address] 73041- 3472 August, Localized edema R60.0 ; Weight gain R63.5 and Irritable bowel syndrome with diarrhea K58.0 [facility] [id number] [place] [address] 16431- 4759 Jul, [facility] [id number] [place] [address] 56514- 5728 Jul, Elevated liver enzymes R74.8 [facility] [address] [place] [address] 77688- 3649 Jul, Polyneuropathy G62.9 [facility] [id number] [place] [address] 68639- 2326 Jul, [facility] [id number] [place] [address] 30430- 4653 Jul, Cervical disc disease M50.90 [facility] [id number] [place] [address] 53089- 3370 Jul, Elevated liver enzymes R74.8 [facility] [id number] [place] [address] 75447- 4039 Jul, Polyneuropathy G62.9 ; Ulcerative pancolitis without complication K51.00 ; Depression F32.9 ; Leg weakness, bilateral R29.898 and Paresthesia of bilateral legs R20.2 [facility] [id number] [place] [address] 60276- 0629 Jul, Polyneuropathy G62.9 ; Ulcerative pancolitis without complication K51.00 ; Depression F32.9 ; Leg weakness, bilateral R29.898 and Paresthesia of bilateral legs R20.2 [facility] [id number] [place] [address] 01456- 4177 Jun, [facility] [id number] [place] [address] 48709- 0350 Jun, Fibrous breast lumps N63.0 [facility] [id number] [place] [address] 39763- 5713 Jun, Ulcerative pancolitis without complication K51.00 [facility] [address] [place] [address] 25410- 4516 Jun, Abnormal mammogram R92.8 [facility] [id number] [place] [address] 26311- 5429 Jun, Breast density R92.2 [facility] [id number] [place] [address] 65300- 8018 Jun, [facility] [id number] [place] [address] 78105- 3086 Jun, PTSD (post-traumatic stress disorder) F43.10 [facility] [id number] [place] [address] 69239- 9419 May, [facility] [id number] [place] [address] 39852- 2211 May, Breast cancer screening Z12.31 and Fibrous breast lumps N63.0 [facility] [id number] [place] [address] 97569- 7119 Apr, Ulcerative pancolitis without complication K51.00 [facility] [id number] [place] [address] 51612- 3441 Apr, [facility] [id number] [place] [address] 08304- 5854 Apr, Ulcerative pancolitis without complication K51.00 ; Low back pain M54.5 and Other chronic pain G89.29 [facility] [id number] [place] [address] 32792- 5778 Dec, Cervical disc disease M50.90 and HTN (hypertension) I10 [facility] [id number] [place] [address] 57298- 2806 05 Dec, 2016 Moderate episode of recurrent major depressive disorder F33.1 and PTSD (post-traumatic stress disorder) F43.10 [facility] [id number] [place] [address] 21551- 7629 Oct, [facility] [id number] [place] [address] 00814- 3297 Oct, Irritable bowel syndrome with diarrhea K58.0 [id number] [place] [address] 21254- 4877 07 Oct, 2016 Irritable bowel syndrome with diarrhea K58.0 [facility] [id number] [place] [address] 83916- 0722 16 Sep, 2016 Diarrhea, unspecified type R19.7 ; Chronic pain G89.29 ; Hypertriglyceridemia E78.1 ; PTSD (post-traumatic stress disorder) F43.10 ; History of herniated intervertebral disc Z87.39 and Depression F32.9 [facility] [id number] [place] [address] 83169- 1388 August, Moderate episode of recurrent major depressive disorder F33.1 and PTSD (post-traumatic stress disorder) F43.10 [facility] [facility] [address] [address]64- 1325 August, [facility] [address] [address]- 6175 Jul, [address] [address]248- 0286 Jul, PTSD (post-traumatic stress disorder) F43.10 ; IBS ( irritable bowel syndrome) K58.9 ; HTN (hypertension) I10 ; Hypertriglyceridemia E78.1 ; Chronic pain G89.29 ; Anxiety F41.9 ; Depression F32.9 ; COPD (chronic obstructive pulmonary disease) J44.9 ; Irritable bowel syndrome with diarrhea K58.0 and Second degree hemorrhoids K64.1 [facility] [facility] [address] 24764- 8369 Jul, PTSD (post-traumatic stress disorder) F43.10 [facility] [id number] [place] [address] 68249- 6830 Jul, [facility] [id number] [place] [address] 89436- 2426 Jun, [facility] [id number] [place] [address] 21496- 5929 Jun, HTN (hypertension) I10 [address] 20947- 8164 May, Depression F32.9 ; Post traumatic stress disorder F43.10 and Screening mammogram, encounter for Z12.[address] 05838- 7621 May, [facility] [id number] [place] [address] 37151- 8373 May, PTSD (post-traumatic stress disorder) F43.10 and Major depressive disorder in partial remission F32.4 [facility] [id number] [place] [address] 34458- 6757 May, PTSD (post-traumatic stress disorder) F43.10 ; IBS ( irritable bowel syndrome) K58.9 ; History of herniated intervertebral disc Z87.39 ; Anxiety F41.9 ; Depression F32.9 ; Hypertriglyceridemia E78.1 ; Eczema of both hands L30.9 ; HTN (hypertension) I10 and COPD (chronic obstructive pulmonary disease) J44.9 [facility] [address] [place] [address] 67330- 2342 Apr, Major depressive disorder in partial remission F32.4 and PTSD (post-traumatic stress disorder) F43.10 [facility] [address] [place] [address] 74059- 9226 Apr, PTSD (post-traumatic stress disorder) F43.10 [facility] [id number] [place] [address] 89127- 7864 Mar, IBS (irritable bowel syndrome) K58.9 ; PTSD (post-traumatic stress disorder) F43.10 ; COPD (chronic obstructive pulmonary disease) J44.9 ; History of herniated intervertebral disc Z87.39 ; HTN (hypertension) I10 ; Parkinsons G20 ; Annular psoriasis L40.8 and Hypertriglyceridemia E78.1 [facility] [address] [place] [address] 34682- 4652 Feb, [address] [id number] [place] [address] 44625- 2554 Feb, Moderate episode of recurrent major depressive disorder F33.1 and PTSD (post-traumatic stress disorder) F43.10 [facility] [id number] [place] [address] 51977- 9357 Jan, Onychocryptosis L60.0 [facility] [id number] [place] [address] 71098- 3386 Dec, [facility] [address] 22605- 3492 Dec, Dizziness R42 ; PTSD (post-traumatic stress disorder) F43.10 ; Posttraumatic stress disorder F43.10 ; IBS (irritable bowel syndrome) K58.9 ; History of herniated intervertebral disc Z87.39 ; HTN (hypertension) I10 ; Chronic pain G89.29 and Hypercholesterolemia E78.0 [facility] [facility] [address] 36913- 3503 Dec, [facility] [address] 77011- 9227 Dec, [facility] [address] 06429 -5962 Dec, Annular psoriasis L40.8 [facility] [address] 11976- 8028 Nov, [facility] [address] 07273- 3870 Nov, [facility] [id number] [place] [address] 27029- 3292 Nov, HTN (hypertension) I10 ; Chronic pain G89.29 ; Annular psoriasis L40.8 ; IBS (irritable bowel syndrome) K58.9 and Vision changes H53.9 [facility] [id number] [place] [address] 44961- 9475 Oct, [facility] [address] 46327- 9467 Oct, IBS (irritable bowel syndrome) K58.9 ; PTSD (post-traumatic stress disorder) F43.10 ; HTN (hypertension) I10 ; Depression F32.9 ; History of herniated intervertebral disc Z87.39 ; Anxiety F41.9 ; Chronic pain G89.29 and Hypercholesterolemia E78.0 [facility] [id number] [place] [address] 16550- 7274 Oct, Major depressive disorder in partial remission F32.4 and PTSD (post-traumatic stress disorder) F43.10 [facility] [id number] [place] [address] 47036- 8358 Oct, IBS (irritable bowel syndrome) K58.9 ; PTSD (post-traumatic stress disorder) F43.10 ; Major depressive disorder, recurrent episode, severe F33.2 ; Anxiety F41.9 and Impacted cerumen, unspecified laterality H61.20 [facility] [id number] [place] [address] 21573- 8135 Oct, Major depressive disorder in partial remission F32.4 ; Posttraumatic stress disorder F43.10 and Anxiety F41.9 [facility] [address] 57976- 6827 Sep, [facility] [address] 98116- 3905 Sep, Anxiety F41.9 ; Major depressive disorder, recurrent episode , mild F33.0 and Posttraumatic stress disorder F43.10 [facility] [id number] [place] [address] 68937- 6274 Sep, [facility] [id number] [place] [address] 11972- 2481 August, [facility] [id number] [place] [address] 59460- 5225 Jul, Contact dermatitis L25.9 [facility] [address] 43811- 7795 Jul, Major depressive disorder, recurrent episode, severe F33.2 ; Posttraumatic stress disorder F43.10 and Anxiety F41.9 [facility] [id number] [place] [address] 43583- 6808 Jul, [facility] [address] [place] [address] 83693- 8315 Jun, IBS (irritable bowel syndrome) K58.9 ; COPD (chronic obstructive pulmonary disease) J44.9 ; HTN (hypertension) I10 ; Chronic pain G89.29 ; Anxiety F41.9 ; PTSD (post-traumatic stress disorder) F43.10 ; Parkinsons G20 and Hypercholesterolemia E78.0 [address] [id number] [place] [address] 31449- 9703 Jun, [facility] [id number] [place] [address] 68899- 1614 Jun, Onychocryptosis L60.0 and Onychomycosis B35.1 [facility] [id number] [place] [address] 96705- 5377 May, [address] [id number] [place] [address] 66017- 3604 May, IBS (irritable bowel syndrome) K58.9 ; COPD (chronic obstructive pulmonary disease) J44.9 ; History of herniated intervertebral disc Z87.39 ; HTN (hypertension) I10 ; Anxiety F41.9 ; Depression F32.9 and Major depressive disorder in partial remission F32.4 [facility] [id number] [place] [address] 37033- 3347 08 May, 2015 IBS (irritable bowel syndrome) K58.9 ; COPD (chronic obstructive pulmonary disease) J44.9 ; History of herniated intervertebral disc Z87.39 ; HTN (hypertension) I10 ; Anxiety F41.9 ; Depression F32.9 and Major depressive disorder in partial remission F32.4 [facility] [id number] [place] [address] 39919- 1842 May, [facility] [id number] [place] [address] 53773- 5233 04 May, 2015 Anxiety F41.9 ; IBS (irritable bowel syndrome) K58.9 and Major depressive disorder in partial remission F32.4 [facility] [address] [address]- 0128 18 Apr, 2015 Encounter for screening mammogram for breast cancer Z12.31 [facility] [id number] [place] [address] 55664- 5275 15 Apr, 2015 [facility] [id number] [place] [address] 64112- 2344 11 Apr, 2015 [facility] [id number] [place] [address] 57837- 1540 Apr, COPD (chronic obstructive pulmonary disease) J44.9 ; HTN ( hypertension) I10 ; Chronic pain G89.29 ; Anxiety F41.9 ; PTSD (post-traumatic stress disorder) F43.10 and IBS (irritable bowel syndrome) K58.9 [id number] [place] [address] 66752- 6527 Apr, PTSD (post-traumatic stress disorder) F43.10 [facility] [id number] [place] [address] 77477- 4154 08 Apr, 2015 Onychocryptosis L60.0 and Onychomycosis B35.[address] [place] [address] 40548- 5300 04 Apr, 2015 IBS (irritable bowel syndrome) K58.9 ; COPD (chronic obstructive pulmonary disease) J44.9 ; History of herniated intervertebral disc Z87.39 ; HTN (hypertension) I10 ; Chronic pain G89.29 ; Anxiety F41.9 ; Depression F32.9 ; Parkinsons G20 ; Hypercholesteremia E78.0 and Hemorrhoid K64.9 [place] [id number] [place] [address] 24867- 8118 Mar, [address] [id number] [place] [address] 63139- 0466 Mar, Major depressive disorder, recurrent episode, severe F33.2 and Posttraumatic stress disorder F43.10 [address] [address] 2546 Mar, [facility] [address] [place] [address] 27690 2546 Mar, [facility] [address] [place] [address] 68527 2546 Mar, PTSD (post-traumatic stress disorder) F43.10 [facility] [id number] [place] [address] 87373 2546 Mar, Onychomycosis B35.1 and Hypertension, benign I10 [facility] [id number] [place] [address] 48456 2546 Mar, Onychomycosis B35.1 and Hypertension, benign I10 [facility] [id number] [place] [address] 64936 2546 Feb, PTSD (post-traumatic stress disorder) F43.10 [facility] [address] [address] 2546 Feb, [facility] [address] [place] [address] 85592 2546 Feb, Major depressive disorder, recurrent episode, severe F33.2 and Posttraumatic stress disorder F43.10 [facility] [address] [address] 2546 Jan, PTSD (post-traumatic stress disorder) F43.10 [facility] [address] [address] 2546 Jan, Rash R21 [facility] [address] [place] [address] 95042 2546 Jan, PTSD (post-traumatic stress disorder) F43.10 [facility] [address] [address] 2546 Jan, [facility] [address] [place] [address] [phone]- 1862 Dec, Neuropathy 355.9 [facility] [address] [place] [address] 02362- 9152 30 Dec, 2014 PTSD (post-traumatic stress disorder) F43.10 [facility] [address] [place] [address] 03022- 3686 29 Dec, 2014 MDD (major depressive disorder), recurrent episode, severe 296.33 and PTSD (post-traumatic stress disorder) 309.81 [facility] [id number] [place] [address] 51521- 5205 Dec, [facility] [id number] [place] [address] 66641- 4970 Dec, Ingrown toenail 703.0 [facility] [id number] [place] [address] 98263- 9034 Dec, Posttraumatic stress disorder 309.81 [facility] [id number] [place] [address] 20907- 9181 Nov, Depressive disorder, not elsewhere classified 311 and Anxiety state, unspecified 300.00 [facility] [id number] [place] [address] 20649- 2038 Oct, Depressive disorder, not elsewhere classified 311 and Anxiety state, unspecified 300.00 [facility] [id number] [place] [address] 64455- 7284 Oct, Depressive disorder, not elsewhere classified 311 ; Anxiety state, unspecified 300.00 and No condition on Hornell II V71.09 [facility] [id number] [id number] Oct, Dental examination V72.2 [facility] [id number] [place] [address] 98324- 0571 Oct, [facility] [address] [place] [address] 47651- 9623 August, [facility] [id number] [place] [address] 51519- 2936 August, Seizure 780.39 and IBS (irritable bowel syndrome) 564.1 [facility] [id number] [address]- 9406 14 Jul, 2014 [facility] [address] [facility] [id number] [place] [address]- 4836 Jul, [facility] [id number] [place] [address], [place] [address]- 3346 Jun, [facility] [address] [facility] [id number] [place] [address], [place] [address]- 5398 Jun, [facility] [id number] [place] [address], [place] [address]- 1778 Jun, [facility] [id number] [address]- 5029 Jun, [facility] [id number] [place] [address], [place] [address]- 1001 Jun, [facility] [id number] [address]- 6167 Jun, [facility] [address] [address]- 3142 Jun, [facility] [id number] [address]- 3099 Jun, [facility] [id number] [address]- 7655 Jun, [facility] [address] [facility] [id number] [address]- 0509 Jun, [facility] [id number] [address]- 8146 Jun, [facility] [id number] [address]- 2586 Jun, [facility] [address] 6157 May, [facility] [address] [id number] [place] [address]- 4805 May, [facility] [place] [facility] [address] [id number] [place] [address]- 9039 Apr, [facility] [place] [facility] [address] [id number] [place] [address]- 2654 Apr, [facility] [place] [facility] [address] [id number] [place] [address]- 9350 Mar, [facility] [place] [facility] [address] [id number] [place] [address]- 0819 Mar, [facility] [place] [facility] [address] [id number] [place] [address]- 7620 Mar, [facility] [place] [facility] [address] [id number] [place] [address]- 2365 Mar, [facility] [place] [facility] [address] [id number] [place] [address]- 8277 Mar, [facility] [place] [facility] [address] [id number] [place] [address]- 4392 Mar, [facility] [place] [facility] [address] [id number] [place] [address] Mar, [facility] [place] [facility] [address] [id number] [place] [address] Mar, [facility] [place] [facility] [address] [id number] [place] [address] Mar, [facility] [place] [facility] [address] [id number] [place] [address] Mar, [facility] [place] [facility] [address] [id number] [place] [address] Mar, [facility] [place] [facility] [address] [id number] [place] [address] Mar, [facility] [place] [facility] [address] [id number] [place] [address] 03 Mar, 2014 [facility] [place] [facility] [address] [id number] [place] [address] Mar, [facility] [place] [facility] [address] [id number] [place] [address] Mar, [facility] [place] [facility] [address] [id number] [place] [address]- [address] Mar, [facility] [place] [facility] [address] [id number] [place] [address] Mar, [facility] [place] [facility] [address] [id number] [place] [address] Mar, [facility] [place] [facility] [address] [id number] [place] [address] Mar, [facility] [place] [facility] [address] [id number] [place] [address] Feb, [facility] [place] [facility] [address] [id number] [place] [address] 25 Feb, 2014 [facility] [place] [facility] [address] [id number] [place] [address] Feb, [facility] [place] [facility] [address] [facility] [id number] [place] [address] 18 Feb, 2014 [facility] [place] [facility] [address] [id number] [place] [address] 17 Feb, 2014 [facility] [place] [facility] [address] [id number] [place] [address] 17 Feb, 2014 [facility] [place] [facility] [address] [id number] [place] [address] 14 Feb, 2014 [facility] [place] [facility] [address] [id number] [place] [address] 14 Feb, 2014 [facility] [place] [facility] [address] [facility] [id number] [place] [address] 15 Jan, 2014 [facility] [place] [facility] [address] [id number] [place] [address] Jan, [facility] [place] [facility] [address] [id number] [place] [address] Nov, [facility] [place] [facility] [address] [id number] [place] [address] Nov, [facility] [place] [facility] [address] [id number] [place] [address] Oct, [facility] [place] [facility] [address] [id number] [place] [address] Oct, [facility] [place] [facility] [address] [id number] [place] [address] 9893 Oct, [facility] [place] [facility] [address] [id number] [place] [address] 8168 Oct, [facility] [place] [facility] [address] [id number] [place] [address] 5[address] Oct, [facility] [place] [facility] [address] [id number] [place] [address] 15[address] Sep, [facility] [place] [facility] [address] [id number] [place] [address] Sep, [facility] [place] [facility] [address] [id number] [place] [address] 80[address] August, [facility] [place] [facility] [address] [id number] [place] [address] 7674 August, [facility] [place] [facility] [address] [id number] [place] [address] 44[address] Jun, [facility] [place] [facility] [address] [id number] [place] [address] 2870 Jun, [facility] [place] [facility] [address] [id number] [place] [address] 26[address] Jun, [facility] [place] [facility] [address] [id number] [place] [address] 47[address] 11 Jun, 2013 [facility] [place] [facility] [address] [id number] [place] [address] 3427 10 Jun, 2013 [facility] [place] [facility] [address] [id number] [place] [address] 8[address] 10 Jun, 2013 [facility] [place] [facility] [address] [id number] [place] [address] 0[address] Jun, [facility] [place] [facility] [address] [id number] [place] [address] 54[address] Jun, [facility] [place] [facility] [address] [id number] [place] [address] 3168 Jun, [facility] [place] [facility] [address] [id number] [place] [address] 9[address] Jun, [facility] [place] [facility] [address] [id number] [place] [address] 8217 Jun, [facility] [place] [facility] [address] [id number] [place] [address] 6[address] Jun, [facility] [place] [facility] [address] [id number] [place] [address] 6105 Jun, [facility] [place] [facility] [address] [id number] [place] [address] 9327 Jun, [facility] [place] [facility] [address] [id number] [place] [address] 5[address] May, [facility] [place] [facility] [address] [id number] [place] [address] 6[address] May, [facility] [place] [facility] [address] [id number] [place] [address] 8[address] Apr, [facility] [place] [facility] [address] [id number] [place] [address] 2632 Apr, [facility] [place] [facility] [address] [id number] [place] [address] 8305 Mar, [facility] [place] [facility] [address] [id number] [place] [address] 2542 Mar, [facility] [address] [id number] [place] [address] 7949 Feb, [facility] [place] [facility] [address] [id number] [place] [address] Feb, [facility] [address] [id number] [place] [address] 9[address] Feb, [facility] [place] [facility] [address] [id number] [place] [address] 37[address] Feb, [facility] [address] [id number] [place] [address] 9573 Feb, [facility] [place] [facility] [address] [id number] [place] [address]- 5200 Feb, [facility] [place] [facility] [address] [id number] [place] [address] 0319 Feb, [facility] [address] [id number] [place] [address] 1611 Jan, [facility] [place] [facility] [address] [id number] [place] [address] 9417 Jan, [facility] [address] [id number] [place] [address]- 5003 Dec, [facility] [place] [facility] [address] [id number] [place] [address]- 5849 Dec, [facility] [place] [facility] [address] [id number] [place] [address] 0643 Nov, [facility] [place] [facility] [address] [id number] [place] [address]- 0494 Nov, [facility] [place] [facility] [address] [id number] [place] [address]- 2546 Oct, [facility] [place] [facility] [address] [id number] [place] [address] 8552 Sep, [facility] [address] [id number] [place] [address] 6050 Sep, [facility] [place] [facility] [address] [id number] [place] [address] 0131 August, [facility] [place] [facility] [address] [id number] [place] [address]- 9961 August, [facility] [place] [facility] [address] [id number] [place] [address] 5142 August, [facility] [address] [id number] [place] [address] 5101 Jul, [facility] [place] [facility] [address] [id number] [place] [address] 9106 May, [facility] [place] [facility] [address] [id number] [place] [address]- 4518 May, [facility] [place] [facility] [address] [id number] [place] [address] 0828 Apr, [facility] [place] [facility] [address] [id number] [place] [address]- 9206 Apr, [facility] [place] [facility] [address] [id number] [place] [address] 0035 Feb, [facility] [place] [facility] [address] [id number] [place] [address]- 7890 Feb, [facility] [place] [facility] [address] [id number] [place] [address] 9281 Jan, [facility] [place] [facility] [address] [id number] [place] [address]- 8045 Jan, [facility] [place] [facility] [address] [id number] [place] [address]- 7148 Jan, [facility] [place] [facility] [address] [id number] [place] [address]- 2318 Nov, [facility] [place] [facility] [address] [id number] [place] [address]- 7372 Nov, [facility] [place] [facility] [address] [id number] [place] [address]- 7543 Nov, [facility] [place] [facility] [address] [id number] [place] [address]- 5804 Nov, [facility] [place] [facility] [address] [id number] [place] [address]- 1486 Nov, [facility] [place] [facility] [address] [id number] [place] [address]- 0393 Oct, [facility] [place] [facility] [address] [id number] [place] [address]- 6385 Oct, [facility] [place] [facility] [address] [id number] [place] [address]- 7772 Oct, [facility] [place] [facility] [address] [id number] [place] [address]- 3996 Oct, [facility] [place] [facility] [address] [id number] [place] [address]- 4822 Oct, [facility] [place] [facility] [address] [id number] [place] [address]- 9761 Oct, [facility] [place] [facility] [address] [id number] [place] [address]- 5140 Oct, [facility] [place] [facility] [address] [id number] [place] [address]- 8434 Sep, [facility] [place] [facility] [address] [id number] [place] [address]- 6252 Sep, [facility] [place] [facility] [address] [id number] [place] [address]- 5432 Sep, [facility] [place] [facility] [address] [id number] [place] [address]- 6640 August, [facility] [place] [facility] [address] [id number] [place] [address]- 6790 Jul, [facility] [place] [facility] [address] [id number] [place] [address]- 2475 28 Jul, 2011 [facility] [address] [id number] [place] [address]- 9668 27 Jul, 2011 [facility] [place] [facility] [address] [id number] [place] [address]- 3484 16 Jul, 2011 [facility] [place] [facility] [address] [id number] [place] [address]- 6886 13 Jul, 2011 [facility] [place] [facility] [address] [id number] [place] [address]- 2066 Jun, [facility] [place] [facility] [address] [id number] [place] [address]- 9051 May, [facility] [place] [facility] [address] [id number] [place] [address]- 3008 Apr, [facility] [address] [id number] [place] [address]- 7850 Apr, [facility] [place] [facility] [address] [id number] [place] [address]- 9459 Apr, [facility] [address] [id number] [place] [address]- 3339 Apr, [facility] [place] [facility] [address] [id number] [place] [address]- 5847 Apr, [facility] [place] [facility] [address] [id number] [place] [address]- 6746 Apr, [facility] [place] [facility] [address] [id number] [place] [address]- 0468 Mar, [facility] [place] [facility] [address] [id number] [place] [address]- 7173 Mar, [facility] [place] [facility] [address] [id number] [place] [address]- 9909 Feb, [facility] [place] [facility] [address] [id number] [place] [address]- 5766 Nov, [facility] [address] [facility] [id number] [place] [address]- 2876 Jun, [facility] [address] [facility] [id number] [place] [address]- 2096 Apr, [facility] [address] [facility] [id number] [place] [address]- 0950 Feb, [facility] [address] [id number] [place] [address]- 5383 Jan, [facility] [address] [facility] [id number] [place] [address]- 9505 Jan, [facility] [address] [facility] [id number] [place] [address]- 6673 Jan, [facility] [address] [facility] [id number] [place] [address]- 9033 Jan, [facility] [address] [facility] [id number] [place] [address]- 0238 Nov, [facility] [address] [facility] [id number] [place] [address]- 2324 Nov, [facility] [address] [facility] [id number] [place] [address]- 3506 Mar, [facility] [address] [facility] [id number] [place] [address]- 6558 Mar, [facility] [address] [facility] [id number] [place] [address]- 3836 Feb, [facility] [address] [facility] [id number] [place] [address] Feb, [facility] [address] [facility] [id number] [place] [address] Jan, [facility] [address] [facility] [id number] [place] [address]- 9549 10 May, 2008 IMMUNIZATIONS No Known Immunizations SOCIAL HISTORY Never Assessed REASON FOR VISIT lab results PLAN OF CARE VITAL SIGNS MEDICATIONS Medication Instructions Dosage Frequency Start Date End Date Duration Status Fish Oil 1000 MG Orally Twice a day 2 capsules 12h Jul, August, 30 day(s) Active RESULTS No Results [...]
--- OUTSIDE RECORDS SUMMARY | 2018-03-25 15:13 | XMS REPORT ---
Author Author NAYA JACKSON Organization [facility] Address [address] [place] [address] Care Team Providers Care Technical Sales Specialist Name Role Phone NAYA JACKSON Unavailable PROBLEMS Type Condition ICD9-CM Code CMA89-CA Code Onset Dates Condition Status SNOMED Code Problem Hypertriglyceridemia E78.1 Active 939640567 Problem Other chronic pain G89.29 Active 07413955 Problem Cervical disc disease M50.90 Active 752643510 Problem Major depressive disorder, single episode, mild F32.0 Active 04497981 Problem Irritable bowel syndrome with diarrhea K58.0 Active 449370569 Problem Paresthesia of bilateral legs R20.2 Active 639149880 Problem Ulcerative pancolitis without complication K51.00 Active 240730920 Problem Abnormal mammogram R92.8 Active 939684789 Problem Polyneuropathy G62.9 Active 23913956 Problem PTSD (post-traumatic stress disorder) F43.10 Active 01274697 Problem Major depressive disorder, recurrent episode, severe F33.2 Active 361544383461 Problem HTN (hypertension) I10 Active 03343343 Problem Depression F32.9 Active 03250936 Problem Parkinsons G20 Active 14650889 Problem Anxiety F41.9 Active 21478117 Problem COPD (chronic obstructive pulmonary disease) J44.9 Active 29881315 Problem Annular psoriasis L40.8 Active 975193163 ALLERGIES No Information ENCOUNTERS Encounter Location Date Diagnosis [facility] [id number] [address] Nov, [facility] [address], [place] [address] Oct, Chronic diarrhea K52.9 and Acute colitis K52.9 [facility] [id number], [place] [address] Oct, Chronic diarrhea K52.9 [facility] [id number] [place] [address] 30173- 3932 Oct, Chronic diarrhea K52.9 and Edema of both legs R60.0 [facility] [id number] [place] [address] 64643- 6907 Sep, Medicare annual wellness visit, initial Z00.00 ; Parkinsons G20 ; COPD (chronic obstructive pulmonary disease) J44.9 ; Major depressive disorder, single episode, mild F32.0 ; HTN (hypertension) I10 ; Hypokalemia E87.6 and Adverse effect of carbonic-anhydrase inhibitors, benzothiadiazides and other diuretics, initial encounter T50.2X5A [facility] [id number] [place] [address] 30543- 6391 Sep, Localized edema R60.0 [facility] [id number] [place] [address] 94805- 9338 Sep, [facility] [id number] [place] [address] 77047- 6339 Sep, Major depressive disorder, single episode, mild F32.0 ; PTSD (post-traumatic stress disorder) F43.10 and Edema of both legs R60.0 [facility] [id number] [place] [address] 62064- 6101 August, Localized edema R60.0 [facility] [id number] [place] [address] 29730- 5513 August, Localized edema R60.0 ; Weight gain R63.5 and Irritable bowel syndrome with diarrhea K58.0 [facility] [id number] [place] [address] 91539- 5565 Jul, [facility] [id number] [place] [address] 33299- 4092 Jul, Elevated liver enzymes R74.8 [facility] [id number] [place] [address] 26197- 7003 Jul, Polyneuropathy G62.9 [facility] [id number] [place] [address] 95779- 2140 Jul, [facility] [id number] [place] [address] 57987- 9549 Jul, Cervical disc disease M50.90 [facility] [id number] [place] [address] 07105- 4310 Jul, Elevated liver enzymes R74.8 [facility] [id number] [place] [address] 16027- 5260 Jul, Polyneuropathy G62.9 ; Ulcerative pancolitis without complication K51.00 ; Depression F32.9 ; Leg weakness, bilateral R29.898 and Paresthesia of bilateral legs R20.2 [facility] [id number] [place] [address] 39825- 9093 Jul, Polyneuropathy G62.9 ; Ulcerative pancolitis without complication K51.00 ; Depression F32.9 ; Leg weakness, bilateral R29.898 and Paresthesia of bilateral legs R20.2 [facility] [id number] [place] [address] 92461- 2642 Jun, [facility] [id number] [place] [address] 37863- 7761 Jun, Fibrous breast lumps N63.0 [facility] [id number] [place] [address] 07433- 1870 Jun, Ulcerative pancolitis without complication K51.00 [facility] [id number] [place] [address] 30409- 0223 Jun, Abnormal mammogram R92.8 [facility] [id number] [place] [address] 67853- 9202 Jun, Breast density R92.2 [facility] [id number] [place] [address] 76899- 0997 Jun, [facility] [id number] [place] [address] 64160- 5562 Jun, PTSD (post-traumatic stress disorder) F43.10 [facility] [id number] [place] [address] 71022- 5610 May, [facility] [id number] [place] [address] 65441- 8299 May, Breast cancer screening Z12.31 and Fibrous breast lumps N63.0 [facility] [id number] [place] [address] 59059- 6053 Apr, Ulcerative pancolitis without complication K51.00 [facility] [id number] [place] [address] 27685- 1443 Apr, [facility] [id number] [place] [address] 04800- 5299 Apr, Ulcerative pancolitis without complication K51.00 ; Low back pain M54.5 and Other chronic pain G89.29 [facility] [id number] [place] [address] 20390- 5053 Dec, Cervical disc disease M50.90 and HTN (hypertension) I10 [facility] [id number] [place] [address] 93046- 3219 05 Dec, 2016 Moderate episode of recurrent major depressive disorder F33.1 and PTSD (post-traumatic stress disorder) F43.10 [facility] [id number] [place] [address] 22346- 1752 Oct, [facility] [id number] [place] [address] 18826- 7923 Oct, Irritable bowel syndrome with diarrhea K58.0 [address] [id number] [place] [address] 68012- 1114 07 Oct, 2016 Irritable bowel syndrome with diarrhea K58.0 [facility] [id number] [place] [address] 47099- 1511 16 Sep, 2016 Diarrhea, unspecified type R19.7 ; Chronic pain G89.29 ; Hypertriglyceridemia E78.1 ; PTSD (post-traumatic stress disorder) F43.10 ; History of herniated intervertebral disc Z87.39 and Depression F32.9 [facility] [id number] [place] [address] 57604- 8210 August, Moderate episode of recurrent major depressive disorder F33.1 and PTSD (post-traumatic stress disorder) F43.10 [facility] [address] 04855- 2471 August, [facility] [address] 46856- 0309 Jul, [address] 81374- 7971 Jul, PTSD (post-traumatic stress disorder) F43.10 ; IBS ( irritable bowel syndrome) K58.9 ; HTN (hypertension) I10 ; Hypertriglyceridemia E78.1 ; Chronic pain G89.29 ; Anxiety F41.9 ; Depression F32.9 ; COPD (chronic obstructive pulmonary disease) J44.9 ; Irritable bowel syndrome with diarrhea K58.0 and Second degree hemorrhoids K64.1 [facility] [address] 92816- 2546 Jul, PTSD (post-traumatic stress disorder) F43.10 [facility] [id number] [place] [address] 95803- 0310 Jul, [facility] [id number] [place] [address] 70586- 2449 Jun, [facility] [id number] [place] [address] 49565- 2590 Jun, HTN (hypertension) I10 [address] 52462- 1827 May, Depression F32.9 ; Post traumatic stress disorder F43.10 and Screening mammogram, encounter for Z12.[address] 85950- 1516 May, [facility] [id number] [place] [address] 51712- 7044 May, PTSD (post-traumatic stress disorder) F43.10 and Major depressive disorder in partial remission F32.4 [facility] [id number] [place] [address] 52290- 6131 May, PTSD (post-traumatic stress disorder) F43.10 ; IBS ( irritable bowel syndrome) K58.9 ; History of herniated intervertebral disc Z87.39 ; Anxiety F41.9 ; Depression F32.9 ; Hypertriglyceridemia E78.1 ; Eczema of both hands L30.9 ; HTN (hypertension) I10 and COPD (chronic obstructive pulmonary disease) J44.9 [facility] [id number] [place] [address] 86704- 6035 Apr, Major depressive disorder in partial remission F32.4 and PTSD (post-traumatic stress disorder) F43.10 [facility] [id number] [place] [address] 90542- 4895 Apr, PTSD (post-traumatic stress disorder) F43.10 [facility] [id number] [place] [address] 31234- 7516 Mar, IBS (irritable bowel syndrome) K58.9 ; PTSD (post-traumatic stress disorder) F43.10 ; COPD (chronic obstructive pulmonary disease) J44.9 ; History of herniated intervertebral disc Z87.39 ; HTN (hypertension) I10 ; Parkinsons G20 ; Annular psoriasis L40.8 and Hypertriglyceridemia E78.1 [address] [address] [place] [address] 81076- 6306 Feb, [place] [id number] [place] [address] 34730- 5738 Feb, Moderate episode of recurrent major depressive disorder F33.1 and PTSD (post-traumatic stress disorder) F43.10 [facility] [id number] [place] [address] 71955- 9071 Jan, Onychocryptosis L60.0 [facility] [id number] [place] [address] 40514- 8671 Dec, [facility] [address] 90378- 5665 Dec, Dizziness R42 ; PTSD (post-traumatic stress disorder) F43.10 ; Posttraumatic stress disorder F43.10 ; IBS (irritable bowel syndrome) K58.9 ; History of herniated intervertebral disc Z87.39 ; HTN (hypertension) I10 ; Chronic pain G89.29 and Hypercholesterolemia E78.0 [address] [address] 03336- 6471 Dec, [facility] [address] 09113- 9920 Dec, [facility] [address] 57425 -4589 Dec, Annular psoriasis L40.8 [facility] [address] 87921- 8261 Nov, [facility] [address] 37183- 2414 Nov, [facility] [id number] [place] [address] 70188- 4289 Nov, HTN (hypertension) I10 ; Chronic pain G89.29 ; Annular psoriasis L40.8 ; IBS (irritable bowel syndrome) K58.9 and Vision changes H53.9 [facility] [id number] [place] [address] 15417- 1670 Oct, [facility] [address] 00701- 3995 Oct, IBS (irritable bowel syndrome) K58.9 ; PTSD (post-traumatic stress disorder) F43.10 ; HTN (hypertension) I10 ; Depression F32.9 ; History of herniated intervertebral disc Z87.39 ; Anxiety F41.9 ; Chronic pain G89.29 and Hypercholesterolemia E78.0 [facility] [id number] [place] [address] 09229- 0010 Oct, Major depressive disorder in partial remission F32.4 and PTSD (post-traumatic stress disorder) F43.10 [facility] [id number] [place] [address] 06630- 1758 Oct, IBS (irritable bowel syndrome) K58.9 ; PTSD (post-traumatic stress disorder) F43.10 ; Major depressive disorder, recurrent episode, severe F33.2 ; Anxiety F41.9 and Impacted cerumen, unspecified laterality H61.20 [facility] [id number] [place] [address] 74503- 4921 Oct, Major depressive disorder in partial remission F32.4 ; Posttraumatic stress disorder F43.10 and Anxiety F41.9 [facility] [address] 30152- 4177 Sep, [facility] [address] 21552- 8673 Sep, Anxiety F41.9 ; Major depressive disorder, recurrent episode , mild F33.0 and Posttraumatic stress disorder F43.10 [facility] [id number] [place] [address] 30045- 7182 Sep, [facility] [id number] [place] [address] 24619- 4369 August, [facility] [id number] [place] [address] 25115- 4292 Jul, Contact dermatitis L25.9 [facility] [address] 43661- 9037 Jul, Major depressive disorder, recurrent episode, severe F33.2 ; Posttraumatic stress disorder F43.10 and Anxiety F41.9 [facility] [id number] [place] [address] 70843- 9827 Jul, [facility] [id number] [place] [address] 05633- 1350 Jun, IBS (irritable bowel syndrome) K58.9 ; COPD (chronic obstructive pulmonary disease) J44.9 ; HTN (hypertension) I10 ; Chronic pain G89.29 ; Anxiety F41.9 ; PTSD (post-traumatic stress disorder) F43.10 ; Parkinsons G20 and Hypercholesterolemia E78.0 [id number] [place] [address] 15043- 3953 Jun, [facility] [id number] [place] [address] 23497- 8282 Jun, Onychocryptosis L60.0 and Onychomycosis B35.1 [facility] [id number] [place] [address] 54641- 5813 May, [address] [id number] [place] [address] 91613- 7978 May, IBS (irritable bowel syndrome) K58.9 ; COPD (chronic obstructive pulmonary disease) J44.9 ; History of herniated intervertebral disc Z87.39 ; HTN (hypertension) I10 ; Anxiety F41.9 ; Depression F32.9 and Major depressive disorder in partial remission F32.4 [facility] [id number] [place] [address] 14453- 9219 08 May, 2015 IBS (irritable bowel syndrome) K58.9 ; COPD (chronic obstructive pulmonary disease) J44.9 ; History of herniated intervertebral disc Z87.39 ; HTN (hypertension) I10 ; Anxiety F41.9 ; Depression F32.9 and Major depressive disorder in partial remission F32.4 [facility] [id number] [place] [address] 60536- 8642 May, [facility] [id number] [place] [address] 25349- 6805 04 May, 2015 Anxiety F41.9 ; IBS (irritable bowel syndrome) K58.9 and Major depressive disorder in partial remission F32.4 [facility] [address], [place] [address]- 8464 18 Apr, 2015 Encounter for screening mammogram for breast cancer Z12.31 [facility] [id number] [place] [address] 10909- 9656 15 Apr, 2015 [facility] [id number] [place] [address] 72420- 7565 11 Apr, 2015 [facility] [id number] [place] [address] 11905- 0899 Apr, COPD (chronic obstructive pulmonary disease) J44.9 ; HTN ( hypertension) I10 ; Chronic pain G89.29 ; Anxiety F41.9 ; PTSD (post-traumatic stress disorder) F43.10 and IBS (irritable bowel syndrome) K58.9 [address] [id number] [place] [address] 17006- 4768 Apr, PTSD (post-traumatic stress disorder) F43.10 [facility] [id number] [place] [address] 76959- 3233 08 Apr, 2015 Onychocryptosis L60.0 and Onychomycosis B35.[address] [place] [address] 89319- 5315 04 Apr, 2015 IBS (irritable bowel syndrome) K58.9 ; COPD (chronic obstructive pulmonary disease) J44.9 ; History of herniated intervertebral disc Z87.39 ; HTN (hypertension) I10 ; Chronic pain G89.29 ; Anxiety F41.9 ; Depression F32.9 ; Parkinsons G20 ; Hypercholesteremia E78.0 and Hemorrhoid K64.9 [facility] [id number] [place] [address] 68757- 4046 Mar, [id number] [place] [address] 68365- 0092 Mar, Major depressive disorder, recurrent episode, severe F33.2 and Posttraumatic stress disorder F43.10 [address] [address] 2546 Mar, [facility] [address] [place] [address] 96088 2546 Mar, [facility] [address] [place] [address] 46694 2546 Mar, PTSD (post-traumatic stress disorder) F43.10 [facility] [id number] [place] [address] 42601 2546 Mar, Onychomycosis B35.1 and Hypertension, benign I10 [facility] [id number] [place] [address] 54485 2546 Mar, Onychomycosis B35.1 and Hypertension, benign I10 [facility] [id number] [place] [address] 31526 2546 Feb, PTSD (post-traumatic stress disorder) F43.10 [facility] [address], [place] [address] 2546 Feb, [facility] [address] [place] [address] 11908 2546 Feb, Major depressive disorder, recurrent episode, severe F33.2 and Posttraumatic stress disorder F43.10 [facility] [address], [place] [address] 2546 Jan, PTSD (post-traumatic stress disorder) F43.10 [facility] [address], [place] [address] 2546 Jan, Rash R21 [facility] [address] [place] [address] 85231 2546 Jan, PTSD (post-traumatic stress disorder) F43.10 [facility] [address], [place] [address] 2546 Jan, [facility] [address] [place] [address] 65895546- 1110 Dec, Neuropathy 355.9 [facility] [address] [place] [address] 35735- 2332 30 Dec, 2014 PTSD (post-traumatic stress disorder) F43.10 [facility] [address] [place] [address] 19324- 7053 29 Dec, 2014 MDD (major depressive disorder), recurrent episode, severe 296.33 and PTSD (post-traumatic stress disorder) 309.81 [facility] [id number] [place] [address] 27044- 1036 Dec, [facility] [id number] [place] [address] 41126- 0703 Dec, Ingrown toenail 703.0 [facility] [id number] [place] [address] 56297- 1831 Dec, Posttraumatic stress disorder 309.81 [facility] [id number] [place] [address] 72762- 1272 Nov, Depressive disorder, not elsewhere classified 311 and Anxiety state, unspecified 300.00 [facility] [id number] [place] [address] 26487- 3182 Oct, Depressive disorder, not elsewhere classified 311 and Anxiety state, unspecified 300.00 [facility] [id number] [place] [address] 90661- 8294 Oct, Depressive disorder, not elsewhere classified 311 ; Anxiety state, unspecified 300.00 and No condition on [place] II V71.09 [facility] [id number] [address] Oct, Dental examination V72.2 [facility] [id number] [place] [address] 32985- 4108 Oct, [facility] [address] [place] [address] 85792- 9385 August, [facility] [id number] [place] [address] 69667- 7512 August, Seizure 780.39 and IBS (irritable bowel syndrome) 564.1 [facility] [id number] [place] [address]- 0786 14 Jul, 2014 [facility] [address] [facility] [id number] [place] [address]- 2026 Jul, [facility] [id number] [place] [address], [place] [address]- 3176 Jun, [facility] [address] [facility] [id number] [place] [address], [place] [address]- 6399 Jun, [facility] [id number] [place] [address], [place] [address]- 0475 Jun, [facility] [id number] [place] [address]- 9605 Jun, [facility] [id number] [place] [address], [place] [address]- 5578 Jun, [facility] [id number] [place] [address]- 4530 Jun, [facility] [address] [place] [address]- 0445 Jun, [facility] [id number] [place] [address]- 2511 Jun, [facility] [id number] [place] [address]- 4301 Jun, [facility] [address] [facility] [id number] [address]- 2723 Jun, [facility] [id number] [place] [address]- 0246 Jun, [facility] [id number] [place] [address]- 6276 Jun, [facility] [address] [address] 3861 May, [facility] [address] [id number] [place] [address]- 9693 May, [facility] [place] [facility] [address] [id number] [place] [address]- 3845 Apr, [facility] [place] [facility] [address] [id number] [place] [address]- 5517 Apr, [facility] [place] [facility] [address] [id number] [place] [address]- 3919 Mar, [facility] [place] [facility] [address] [id number] [place] [address]- 5930 Mar, [facility] [place] [facility] [address] [id number] [place] [address]- 3642 Mar, [facility] [place] [facility] [address] [id number] [place] [address]- 0941 Mar, [facility] [place] [facility] [address] [id number] [place] [address]- 5801 Mar, [facility] [place] [facility] [address] [id number] [place] [address]- 4479 Mar, [facility] [place] [facility] [address] [id number] [place] [address]- 3737 Mar, [facility] [place] [facility] [address] [id number] [place] [address]- 8254 Mar, [facility] [place] [facility] [address] [id number] [place] [address]- 8112 Mar, [facility] [place] [facility] [address] [id number] [place] [address]- 8998 Mar, [facility] [place] [facility] [address] [id number] [place] [address]- 4137 Mar, [facility] [place] [facility] [address] [id number] [place] [address]- 4322 Mar, [facility] [place] [facility] [address] [id number] [place] [address]- 5064 03 Mar, 2014 [facility] [place] [facility] [address] [id number] [place] [address]- 9585 Mar, [facility] [place] [facility] [address] [id number] [place] [address]- 3470 Mar, [facility] [place] [facility] [address] [id number] [place] [address] Mar, [facility] [place] [facility] [address] [id number] [place] [address] Mar, [facility] [place] [facility] [address] [id number] [place] [address] Mar, [facility] [place] [facility] [address] [id number] [place] [address] Mar, [facility] [place] [facility] [address] [id number] [place] [address] Feb, [facility] [place] [facility] [address] [id number] [place] [address] 25 Feb, 2014 [facility] [place] [facility] [address] [id number] [place] [address] Feb, [facility] [place] [facility] [address] [facility] [id number] [place] [address] 18 Feb, 2014 [facility] [place] [facility] [address] [id number] [place] [address] 17 Feb, 2014 [facility] [place] [facility] [address] [id number], [place] [address] 17 Feb, 2014 [facility] [place] [facility] [address] [id number] [place] [address] 14 Feb, 2014 [facility] [place] [facility] [address] [id number] [place] [address] 14 Feb, 2014 [facility] [place] [facility] [address] [facility] [id number] [place] [address] 15 Jan, 2014 [facility] [place] [facility] [address] [id number] [place] [address] Jan, [facility] [place] [facility] [address] [id number] [place] [address] Nov, [facility] [place] [facility] [address] [id number] [place] [address] Nov, [facility] [place] [facility] [address] [id number] [place] [address] Oct, [facility] [place] [facility] [address] [id number] [place] [address] Oct, [facility] [place] [facility] [address] [id number] [place] [address] Oct, [facility] [place] [facility] [address] [id number] [place] [address] Oct, [facility] [place] [facility] [address] [address] [id number] [place] [address] Oct, [facility] [place] [facility] [address] [id number] [place] [address] Sep, [facility] [place] [facility] [address] [id number] [place] [address] Sep, [facility] [place] [facility] [address] [id number] [place] [address] August, [facility] [place] [facility] [address] [id number] [place] [address] August, [facility] [place] [facility] [address] [id number] [place] [address] Jun, [facility] [place] [facility] [address] [id number] [place] [address] Jun, [facility] [place] [facility] [address] [id number] [place] [address] Jun, [facility] [place] [facility] [address] [id number] [place] [address] 11 Jun, 2013 [facility] [place] [facility] [address] [id number] [place] [address] 10 Jun, 2013 [facility] [place] [facility] [address] [id number] [place] [address] 10 Jun, 2013 [facility] [place] [facility] [address] [id number] [place] [address] Jun, [facility] [place] [facility] [address] [id number] [place] [address] Jun, [facility] [place] [facility] [address] [id number] [place] [address] Jun, [facility] [place] [facility] [address] [id number] [place] [address] Jun, [facility] [place] [facility] [address] [id number] [place] [address] Jun, [facility] [place] [facility] [address] [id number] [place] [address] Jun, [facility] [place] [facility] [address] [id number] [place] [address] Jun, [facility] [place] [facility] [address] [id number] [place] [address]234 Jun, [facility] [place] [facility] [address] [id number] [place] [address] May, [facility] [place] [facility] [address] [id number] [place] [address] May, [facility] [place] [facility] [address] [id number] [place] [address] Apr, [facility] [place] [facility] [address] [id number] [place] [address] Apr, [facility] [place] [facility] [address] [id number] [place] [address] Mar, [facility] [place] [facility] [address] [id number] [place] [address] Mar, [facility] [address] [id number] [place] [address] Feb, [facility] [place] [facility] [address] [id number] [place] [address] Feb, [facility] [address] [id number] [place] [address]- [address] Feb, [facility] [place] [facility] [address] [id number] [place] [address] 1312 Feb, [facility] [address] [id number] [place] [address] Feb, [facility] [place] [facility] [address] [id number] [place] [address] Feb, [facility] [place] [facility] [address] [id number] [place] [address] Feb, [facility] [address] [id number] [place] [address] Jan, [facility] [place] [facility] [address] [id number] [place] [address] Jan, [facility] [address] [id number] [place] [address] Dec, [facility] [place] [facility] [address] [id number] [place] [address] Dec, [facility] [place] [facility] [address] [id number] [place] [address] 1783 Nov, [facility] [place] [facility] [address] [id number] [place] [address]296 Nov, [facility] [place] [facility] [address] [id number] [place] [address]46 Oct, [facility] [place] [facility] [address] [id number] [place] [address] Sep, [facility] [address] [id number] [place] [address] 1147 Sep, [facility] [place] [facility] [address] [id number] [place] [address] August, [facility] [place] [facility] [address] [id number] [place] [address] August, [facility] [place] [facility] [address] [id number] [place] [address] August, [facility] [address] [id number] [place] [address] Jul, [facility] [place] [facility] [address] [id number] [place] [address]- 2594 May, [facility] [place] [facility] [address] [id number] [place] [address] May, [facility] [place] [facility] [address] [id number], [place] [address] Apr, [facility] [place] [facility] [address] [id number] [place] [address]671 Apr, [facility] [place] [facility] [address] [id number], [place] [address] Feb, [facility] [place] [facility] [address] [id number] [place] [address]45 Feb, [facility] [place] [facility] [address] [id number], [place] [address] Jan, [facility] [place] [facility] [address] [id number] [place] [address] 7[address] Jan, [facility] [place] [facility] [address] [id number] [place] [address] 4369 Jan, [facility] [place] [facility] [address] [id number] [place] [address] 3542 Nov, [facility] [place] [facility] [address] [id number] [place] [address] 39[address] Nov, [facility] [place] [facility] [address] [id number] [place] [address]- [address]181 Nov, [facility] [place] [facility] [address] [id number] [place] [address]- 8306 Nov, [facility] [place] [facility] [address] [id number] [place] [address] Nov, [facility] [place] [facility] [address] [id number] [place] [address] Oct, [facility] [place] [facility] [address] [id number] [place] [address]- [address]290 Oct, [facility] [place] [facility] [address] [id number] [place] [address] 2052 Oct, [facility] [place] [facility] [address] [id number] [place] [address] 3695 Oct, [facility] [place] [facility] [address] [id number] [place] [address] Oct, [facility] [place] [facility] [address] [id number] [place] [address]- 6588 Oct, [facility] [place] [facility] [address] [id number] [place] [address]- 2434 Oct, [facility] [place] [facility] [address] [id number] [place] [address]156 Sep, [facility] [place] [facility] [address] [id number] [place] [address]- 7857 Sep, [facility] [place] [facility] [address] [id number] [place] [address]- 4895 Sep, [facility] [place] [facility] [address] [id number] [place] [address]- 9442 August, [facility] [place] [facility] [address] [id number] [place] [address]- 9318 Jul, [facility] [place] [facility] [address] [id number] [place] [address]- [address] 28 Jul, 2011 [facility] [address] [id number] [place] [address]- 69[address] 27 Jul, 2011 [facility] [place] [facility] [address] [id number] [place] [address]- 8908 16 Jul, 2011 [facility] [place] [facility] [address] [id number] [place] [address]- 8801 13 Jul, 2011 [facility] [place] [facility] [address] [id number] [place] [address]- 5623 Jun, [facility] [place] [facility] [address] [id number] [place] [address]- 9944 May, [facility] [place] [facility] [address] [id number] [place] [address]- 4659 Apr, [facility] [address] [id number] [place] [address]- 0666 Apr, [facility] [place] [facility] [address] [id number] [place] [address]- 5722 Apr, [facility] [address] [id number] [place] [address]- 3381 Apr, [facility] [place] [facility] [address] [id number] [place] [address]- 3298 Apr, [facility] [place] [facility] [address] [id number] [place] [address]- 6547 Apr, [facility] [place] [facility] [address] [id number] [place] [address]- 9018 Mar, [facility] [place] [facility] [address] [id number] [place] [address]- 7687 Mar, [facility] [place] [facility] [address] [id number] [place] [address]- 7693 Feb, [facility] [place] [facility] [address] [id number], [place] [address]- 4076 Nov, [facility] [address] [facility] [id number], [place] [address]- [address] Jun, [facility] [address] [facility] [id number], [place] [address]- 9167 Apr, [facility] [address] [facility] [id number], [place] [address]- 8746 Feb, [facility] [address] [facility] [id number][place] [address] Jan, [facility] [address] [facility] [id number] [place] [address]- 2261 Jan, [facility] [address] [facility] [id number], [place] [address]- [address] Jan, [facility] [address] [facility] [id number], [place] [address]- 9904 Jan, [facility] [address] [facility] [id number], [place] [address]- 2292 Nov, [facility] [address] [facility] [id number], [place] [address]- 0697 Nov, [facility] [address] [facility] [id number], [place] [address]- 2491 Mar, [facility] [address] [facility] [id number], [place] [address]- 8627 Mar, [facility] [address] [facility] [id number], [place] [address]- 9602 Feb, [facility] [address] [facility] [id number], [place] [address]- 0988 Feb, [facility] [address] [facility] [id number][place] [address] Jan, [facility] [address] [facility] [id number], [place] [address]- [address]58 10 May, 2008 IMMUNIZATIONS No Known Immunizations SOCIAL HISTORY Never Assessed REASON FOR VISIT +Mammo PLAN OF CARE VITAL SIGNS MEDICATIONS Unknown [...]
--- OUTSIDE RECORDS SUMMARY | 2018-03-25 15:14 | XMS REPORT ---
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 Name Role Phone NAYA JACKSON Unavailable PROBLEMS Type Condition ICD9-CM Code [id number] Code Onset Dates Condition Status SNOMED Code Problem Hypertriglyceridemia E78.1 Active 116501835 Problem Other chronic pain G89.29 Active 07655997 Problem Cervical disc disease M50.90 Active 678135239 Problem Major depressive disorder, single episode, mild F32.0 Active 16986493 Problem Irritable bowel syndrome with diarrhea K58.0 Active 719995092 Problem Paresthesia of bilateral legs R20.2 Active 882361179 Problem Ulcerative pancolitis without complication K51.00 Active 021646632 Problem Abnormal mammogram R92.8 Active 275443244 Problem Polyneuropathy G62.9 Active 75195681 Problem PTSD (post-traumatic stress disorder) F43.10 Active 99416264 Problem Major depressive disorder, recurrent episode, severe F33.2 Active 709706642522 Problem HTN (hypertension) I10 Active 10196203 Problem Depression F32.9 Active 82659502 Problem Parkinsons G20 Active 30596273 Problem Anxiety F41.9 Active 51806227 Problem COPD (chronic obstructive pulmonary disease) J44.9 Active 44445432 Problem Annular psoriasis L40.8 Active 146946506 ALLERGIES No Information ENCOUNTERS Encounter Location Date Diagnosis [facility] [id number], [place] [address] Nov, [facility] [address], [place] [address] Oct, Chronic diarrhea K52.9 and Acute colitis K52.9 [facility] [id number], [place] [address] Oct, Chronic diarrhea K52.9 [facility] [id number] [place] [address] 51419- 4664 Oct, Chronic diarrhea K52.9 and Edema of both legs R60.0 [place] [id number] [place] [address] 79686- 1087 Sep, Medicare annual wellness visit, initial Z00.00 ; Parkinsons G20 ; COPD (chronic obstructive pulmonary disease) J44.9 ; Major depressive disorder, single episode, mild F32.0 ; HTN (hypertension) I10 ; Hypokalemia E87.6 and Adverse effect of carbonic-anhydrase inhibitors, benzothiadiazides and other diuretics, initial encounter T50.2X5A [place] [id number] [place] [address] 50085- 4188 Sep, Localized edema R60.0 [place] [id number] [place] [address] 83142- 2625 Sep, [place] [id number] [place] [address] 94152- 2091 Sep, Major depressive disorder, single episode, mild F32.0 ; PTSD (post-traumatic stress disorder) F43.10 and Edema of both legs R60.0 [place] [id number] [place] [address] 27634- 4665 August, Localized edema R60.0 [place] [id number] [place] [address] 32138- 3634 August, Localized edema R60.0 ; Weight gain R63.5 and Irritable bowel syndrome with diarrhea K58.0 [place] [id number] [place] [address] 09879- 2253 Jul, [place] [address] [place] [address] 14075- 8007 Jul, Elevated liver enzymes R74.8 [place] [address] [place] [address] 86682- 5537 Jul, Polyneuropathy G62.9 [place] [address] [place] [address] 58273- 2645 Jul, [place] [id number] [place] [address] 67674- 5758 Jul, Cervical disc disease M50.90 [place] [address] [place] [address] 98540- 0302 Jul, Elevated liver enzymes R74.8 [place] [address] [place] [address] 42564- 4719 Jul, Polyneuropathy G62.9 ; Ulcerative pancolitis without complication K51.00 ; Depression F32.9 ; Leg weakness, bilateral R29.898 and Paresthesia of bilateral legs R20.2 [place] [address] [place] [address] 39620- 9268 Jul, Polyneuropathy G62.9 ; Ulcerative pancolitis without complication K51.00 ; Depression F32.9 ; Leg weakness, bilateral R29.898 and Paresthesia of bilateral legs R20.2 [place] [id number] [place] [address] 24825- 9806 Jun, [place] [address] [place] [address] 32043- 0060 Jun, Fibrous breast lumps N63.0 [place] [address] [place] [address] 54859- 7065 Jun, Ulcerative pancolitis without complication K51.00 [place] [address] [place] [address] 75662- 4876 Jun, Abnormal mammogram R92.8 [place] [address] [place] [address] 18566- 7863 Jun, Breast density R92.2 [place] [address] [place] [address] 58461- 8578 Jun, [place] [address] [place] [address] 55096- 2080 Jun, PTSD (post-traumatic stress disorder) F43.10 [place] [id number] [place] [address] 20483- 5532 May, [place] [address] [place] [address] 35336- 0787 May, Breast cancer screening Z12.31 and Fibrous breast lumps N63.0 [place] [address] [place] [address] 60815- 3132 Apr, Ulcerative pancolitis without complication K51.00 [place] [address] [place] [address] 47892- 8816 Apr, [place] [address] [place] [address] 37352- 4886 Apr, Ulcerative pancolitis without complication K51.00 ; Low back pain M54.5 and Other chronic pain G89.29 [place] [address] [place] [address] 88396- 0917 Dec, Cervical disc disease M50.90 and HTN (hypertension) I10 [place] [address] [place] [address] 73185- 9273 05 Dec, 2016 Moderate episode of recurrent major depressive disorder F33.1 and PTSD (post-traumatic stress disorder) F43.10 [place] [address] [place] [address] 96945- 6091 Oct, [place] [address] [place] [address] 79868- 8202 Oct, Irritable bowel syndrome with diarrhea K58.0 [id number] [place] [address] 61752- 2030 07 Oct, 2016 Irritable bowel syndrome with diarrhea K58.0 [place] [address] [place] [address] 85071- 5103 16 Sep, 2016 Diarrhea, unspecified type R19.7 ; Chronic pain G89.29 ; Hypertriglyceridemia E78.1 ; PTSD (post-traumatic stress disorder) F43.10 ; History of herniated intervertebral disc Z87.39 and Depression F32.9 [place] [address] [place] [address] 24146- 4345 August, Moderate episode of recurrent major depressive disorder F33.1 and PTSD (post-traumatic stress disorder) F43.10 [place] [address] 8[address]24- 2139 August, [place] [address] 75545- 7006 Jul, [address] 74680- 0245 Jul, PTSD (post-traumatic stress disorder) F43.10 ; IBS ( irritable bowel syndrome) K58.9 ; HTN (hypertension) I10 ; Hypertriglyceridemia E78.1 ; Chronic pain G89.29 ; Anxiety F41.9 ; Depression F32.9 ; COPD (chronic obstructive pulmonary disease) J44.9 ; Irritable bowel syndrome with diarrhea K58.0 and Second degree hemorrhoids K64.1 [place] [address] 07734- 7716 Jul, PTSD (post-traumatic stress disorder) F43.10 [place] [id number] [place] [address] 06446- 7044 Jul, [place] [address] [place] [address] 21325- 6312 Jun, [place] [address] [place] [address] 41135- 0656 Jun, HTN (hypertension) I10 [address] 93732- 7194 May, Depression F32.9 ; Post traumatic stress disorder F43.10 and Screening mammogram, encounter for Z12.[address] 49956- 6850 May, [place] [address] [place] [address] 50651- 8349 May, PTSD (post-traumatic stress disorder) F43.10 and Major depressive disorder in partial remission F32.4 [place] [address] [place] [address] 61466- 5484 May, PTSD (post-traumatic stress disorder) F43.10 ; IBS ( irritable bowel syndrome) K58.9 ; History of herniated intervertebral disc Z87.39 ; Anxiety F41.9 ; Depression F32.9 ; Hypertriglyceridemia E78.1 ; Eczema of both hands L30.9 ; HTN (hypertension) I10 and COPD (chronic obstructive pulmonary disease) J44.9 [place] [address] [place] [address] 21281- 6777 Apr, Major depressive disorder in partial remission F32.4 and PTSD (post-traumatic stress disorder) F43.10 [place] [address] [place] [address] 79054- 2694 Apr, PTSD (post-traumatic stress disorder) F43.10 [place] [id number] [place] [address] 27881- 2571 Mar, IBS (irritable bowel syndrome) K58.9 ; PTSD (post-traumatic stress disorder) F43.10 ; COPD (chronic obstructive pulmonary disease) J44.9 ; History of herniated intervertebral disc Z87.39 ; HTN (hypertension) I10 ; Parkinsons G20 ; Annular psoriasis L40.8 and Hypertriglyceridemia E78.1 [address] [address] [place] [address] 35937- 4216 Feb, [place] [id number] [place] [address] 48003- 4617 Feb, Moderate episode of recurrent major depressive disorder F33.1 and PTSD (post-traumatic stress disorder) F43.10 [place] [id number] [place] [address] 09372- 3030 Jan, Onychocryptosis L60.0 [facility] [id number] [place] [address] 49992- 6810 Dec, [facility] [address] 75109- 1588 Dec, Dizziness R42 ; PTSD (post-traumatic stress disorder) F43.10 ; Posttraumatic stress disorder F43.10 ; IBS (irritable bowel syndrome) K58.9 ; History of herniated intervertebral disc Z87.39 ; HTN (hypertension) I10 ; Chronic pain G89.29 and Hypercholesterolemia E78.0 [place] [address] 34024- 0363 Dec, [facility] [address] 65153- 4163 Dec, [facility] [address] 07444 -3147 Dec, Annular psoriasis L40.8 [facility] [address] 02123- 2982 Nov, [place] [address] 65596- 2633 Nov, [place] [id number] [place] [address] 90981- 8532 Nov, HTN (hypertension) I10 ; Chronic pain G89.29 ; Annular psoriasis L40.8 ; IBS (irritable bowel syndrome) K58.9 and Vision changes H53.9 [facility] [id number] [place] [address] 93691- 6284 Oct, [facility] [address] 05915- 7484 Oct, IBS (irritable bowel syndrome) K58.9 ; PTSD (post-traumatic stress disorder) F43.10 ; HTN (hypertension) I10 ; Depression F32.9 ; History of herniated intervertebral disc Z87.39 ; Anxiety F41.9 ; Chronic pain G89.29 and Hypercholesterolemia E78.0 [place] [address] [place] [address] 27096- 6492 Oct, Major depressive disorder in partial remission F32.4 and PTSD (post-traumatic stress disorder) F43.10 [place] [address] [place] [address] 56329- 3683 Oct, IBS (irritable bowel syndrome) K58.9 ; PTSD (post-traumatic stress disorder) F43.10 ; Major depressive disorder, recurrent episode, severe F33.2 ; Anxiety F41.9 and Impacted cerumen, unspecified laterality H61.20 [place] [address] [place] [address] 00665- 5129 Oct, Major depressive disorder in partial remission F32.4 ; Posttraumatic stress disorder F43.10 and Anxiety F41.9 [place] [address] 40960- 2382 Sep, [place] [address] 35945- 8277 Sep, Anxiety F41.9 ; Major depressive disorder, recurrent episode , mild F33.0 and Posttraumatic stress disorder F43.10 [place] [id number] [place] [address] 85543- 2819 Sep, [place] [address] [place] [address] 73411- 2582 August, [place] [address] [place] [address] 40896- 9496 Jul, Contact dermatitis L25.9 [place] [address] 07166- 4184 Jul, Major depressive disorder, recurrent episode, severe F33.2 ; Posttraumatic stress disorder F43.10 and Anxiety F41.9 [place] [address] [place] [address] 70234- 6661 Jul, [place] [address] [place] [address] 49517- 7197 Jun, IBS (irritable bowel syndrome) K58.9 ; COPD (chronic obstructive pulmonary disease) J44.9 ; HTN (hypertension) I10 ; Chronic pain G89.29 ; Anxiety F41.9 ; PTSD (post-traumatic stress disorder) F43.10 ; Parkinsons G20 and Hypercholesterolemia E78.0 [id number] [place] [address] 91118- 9491 Jun, [place] [address] [place] [address] 11105- 5804 Jun, Onychocryptosis L60.0 and Onychomycosis B35.1 [place] [address] [place] [address] 37291- 1263 May, [id number] [place] [address] 56289- 8613 May, IBS (irritable bowel syndrome) K58.9 ; COPD (chronic obstructive pulmonary disease) J44.9 ; History of herniated intervertebral disc Z87.39 ; HTN (hypertension) I10 ; Anxiety F41.9 ; Depression F32.9 and Major depressive disorder in partial remission F32.4 [place] [address] [place] [address] 13622- 7769 08 May, 2015 IBS (irritable bowel syndrome) K58.9 ; COPD (chronic obstructive pulmonary disease) J44.9 ; History of herniated intervertebral disc Z87.39 ; HTN (hypertension) I10 ; Anxiety F41.9 ; Depression F32.9 and Major depressive disorder in partial remission F32.4 [place] [address] [place] [address] 01651- 6950 May, [place] [address] [place] [address] 21510- 7644 04 May, 2015 Anxiety F41.9 ; IBS (irritable bowel syndrome) K58.9 and Major depressive disorder in partial remission F32.4 [place] [address], [place] [address]- 3551 18 Apr, 2015 Encounter for screening mammogram for breast cancer Z12.31 [place] [address] [place] [address] 59039- 4181 15 Apr, 2015 [place] [address] [place] [address] 00922- 1760 11 Apr, 2015 [place] [address] [place] [address] 67867- 4077 Apr, COPD (chronic obstructive pulmonary disease) J44.9 ; HTN ( hypertension) I10 ; Chronic pain G89.29 ; Anxiety F41.9 ; PTSD (post-traumatic stress disorder) F43.10 and IBS (irritable bowel syndrome) K58.9 [id number] [place] [address] 81921- 1037 Apr, PTSD (post-traumatic stress disorder) F43.10 [place] [address] [place] [address] 56366- 2314 08 Apr, 2015 Onychocryptosis L60.0 and Onychomycosis B35.[address] [place] [address] 46476- 6040 04 Apr, 2015 IBS (irritable bowel syndrome) K58.9 ; COPD (chronic obstructive pulmonary disease) J44.9 ; History of herniated intervertebral disc Z87.39 ; HTN (hypertension) I10 ; Chronic pain G89.29 ; Anxiety F41.9 ; Depression F32.9 ; Parkinsons G20 ; Hypercholesteremia E78.0 and Hemorrhoid K64.9 [place] [address] [place] [address] 13483- 7140 Mar, [address] [id number] [place] [address] 50451- 6661 Mar, Major depressive disorder, recurrent episode, severe F33.2 and Posttraumatic stress disorder F43.10 [address], [place] [address] 2546 Mar, [facility] [address] [place] [address] 17111 2546 Mar, [facility] [address] [place] [address] 58090 2546 Mar, PTSD (post-traumatic stress disorder) F43.10 [facility] [id number] [place] [address] 11447 2546 Mar, Onychomycosis B35.1 and Hypertension, benign I10 [facility] [address] [place] [address] 22603 2546 Mar, Onychomycosis B35.1 and Hypertension, benign I10 [facility] [address] [place] [address] 20347 2546 Feb, PTSD (post-traumatic stress disorder) F43.10 [facility] [address], [place] [address] 2546 Feb, [facility] [address] [place] [address] 61152 2546 Feb, Major depressive disorder, recurrent episode, severe F33.2 and Posttraumatic stress disorder F43.10 [facility] [address], [place] [address] 2546 Jan, PTSD (post-traumatic stress disorder) F43.10 [facility] [address], [place] [address] 2546 Jan, Rash R21 [facility] [address] [place] [address] 39985 2546 Jan, PTSD (post-traumatic stress disorder) F43.10 [facility] [address], [place] [address] 2546 Jan, [facility] [address] [place] [address] 90749151- 9994 Dec, Neuropathy 355.9 [facility] [address] [place] [address] 35880- 5247 30 Dec, 2014 PTSD (post-traumatic stress disorder) F43.10 [facility] [address] [place] [address] 23812- 3582 29 Dec, 2014 MDD (major depressive disorder), recurrent episode, severe 296.33 and PTSD (post-traumatic stress disorder) 309.81 [facility] [id number] [place] [address] 30692- 2750 Dec, [facility] [address] [place] [address] 52667- 4183 Dec, Ingrown toenail 703.0 [facility] [address] [place] [address] 23073- 8383 Dec, Posttraumatic stress disorder 309.81 [facility] [id number] [place] [address] 77840- 5566 Nov, Depressive disorder, not elsewhere classified 311 and Anxiety state, unspecified 300.00 [facility] [id number] [place] [address] 30507- 1182 Oct, Depressive disorder, not elsewhere classified 311 and Anxiety state, unspecified 300.00 [facility] [address] [place] [address] 32453- 1101 Oct, Depressive disorder, not elsewhere classified 311 ; Anxiety state, unspecified 300.00 and No condition on Waka II V71.09 [facility] [id number] [address] Oct, Dental examination V72.2 [facility] [id number] [place] [address] 73247- 8376 Oct, [facility] [address] [place] [address] 12683- 3603 August, [facility] [id number] [place] [address] 56106- 7822 August, Seizure 780.39 and IBS (irritable bowel syndrome) 564.1 [facility] [id number] [place] [address]- 1716 14 Jul, 2014 [facility] [address] [facility] [id number] [place] [address]- 8816 Jul, [facility] [id number] [place] [address], [place] [address]- 1726 Jun, [facility] [address] [facility] [id number] [place] [address], [place] [address]- 3075 Jun, [facility] [id number] [place] [address], [place] [address]- 2183 Jun, [facility] [id number] [place] [address]- 9995 Jun, [facility] [id number] [place] [address], [place] [address]- 8385 Jun, [facility] [id number] [place] [address]- 3112 Jun, [facility] [address] [place] [address]- 2331 Jun, [facility] [id number] [place] [address]- 0050 Jun, [facility] [id number] [place] [address]- 5316 Jun, [facility] [address] [facility] [id number] [address]- 7869 Jun, [facility] [id number] [place] [address]- 9766 Jun, [facility] [id number] [place] [address]- 9776 Jun, [facility] [address] 1641 May, [facility] [address] [id number] [place] [address]- 0755 May, [facility] [place] [facility] [address] [id number] [place] [address]- 5451 Apr, [facility] [place] [facility] [address] [id number] [place] [address]- 6220 Apr, [facility] [place] [facility] [address] [id number] [place] [address]- 7029 Mar, [facility] [place] [facility] [address] [id number] [place] [address]- 3363 Mar, [facility] [place] [facility] [address] [id number] [place] [address] Mar, [facility] [place] [facility] [address] [id number] [place] [address] Mar, [facility] [place] [facility] [address] [id number] [place] [address] Mar, [facility] [place] [facility] [address] [id number] [place] [address] Mar, [facility] [place] [facility] [address] [id number] [place] [address] Mar, [facility] [place] [facility] [address] [id number] [place] [address] Mar, [facility] [place] [facility] [address] [id number] [place] [address] Mar, [facility] [place] [facility] [address] [id number] [place] [address] Mar, [facility] [place] [facility] [address] [id number] [place] [address] Mar, [facility] [place] [facility] [address] [id number] [place] [address] Mar, [facility] [place] [facility] [address] [id number] [place] [address] 03 Mar, 2014 [facility] [place] [facility] [address] [id number] [place] [address] Mar, [facility] [place] [facility] [address] [id number] [place] [address] Mar, [facility] [place] [facility] [address] [id number] [place] [address] Mar, [facility] [place] [facility] [address] [id number] [place] [address] Mar, [facility] [place] [facility] [address] [id number] [place] [address] Mar, [facility] [place] [facility] [address] [id number] [place] [address] Mar, [facility] [place] [facility] [address] [address] [id number] [place] [address] Feb, [facility] [place] [facility] [address] [id number] [place] [address] 25 Feb, 2014 [facility] [place] [facility] [address] [id number] [place] [address] Feb, [facility] [place] [facility] [address] [facility] [id number] [place] [address] 18 Feb, 2014 [facility] [place] [facility] [address] [id number] [place] [address] 4[address] 17 Feb, 2014 [facility] [place] [facility] [address] [id number], [place] [address] 17 Feb, 2014 [facility] [place] [facility] [address] [id number] [place] [address]294 14 Feb, 2014 [facility] [place] [facility] [address] [id number] [place] [address] 3069 14 Feb, 2014 [facility] [place] [facility] [address] [facility] [id number] [place] [address] 8629 15 Jan, 2014 [facility] [place] [facility] [address] [id number] [place] [address] Jan, [facility] [place] [facility] [address] [id number] [place] [address]207 Nov, [facility] [place] [facility] [address] [id number] [place] [address]99 Nov, [facility] [place] [facility] [address] [id number] [place] [address] 3942 Oct, [facility] [place] [facility] [address] [id number] [place] [address] Oct, [facility] [place] [facility] [address] [id number] [place] [address]235 Oct, [facility] [place] [facility] [address] [id number] [place] [address] 3118 Oct, [facility] [place] [facility] [address] [id number] [place] [address] 8494 Oct, [facility] [place] [facility] [address] [id number] [place] [address] Sep, [facility] [place] [facility] [address] [id number] [place] [address] 6981 Sep, [facility] [place] [facility] [address] [id number] [place] [address] 8910 August, [facility] [place] [facility] [address] [id number] [place] [address] 9979 August, [facility] [place] [facility] [address] [id number] [place] [address] 75[address] Jun, [facility] [place] [facility] [address] [id number] [place] [address] 0054 Jun, [facility] [place] [facility] [address] [id number] [place] [address] 4193 Jun, [facility] [place] [facility] [address] [id number] [place] [address]- 3569 11 Jun, 2013 [facility] [place] [facility] [address] [id number] [place] [address]- 1519 10 Jun, 2013 [facility] [place] [facility] [address] [id number] [place] [address]- 9030 10 Jun, 2013 [facility] [place] [facility] [address] [id number] [place] [address]307 Jun, [facility] [place] [facility] [address] [id number] [place] [address] 0510 Jun, [facility] [place] [facility] [address] [id number] [place] [address]- 7290 Jun, [facility] [place] [facility] [address] [id number] [place] [address] 4994 Jun, [facility] [place] [facility] [address] [id number] [place] [address] 6231 Jun, [facility] [place] [facility] [address] [id number] [place] [address] 7129 Jun, [facility] [place] [facility] [address] [id number] [place] [address] 0062 Jun, [facility] [place] [facility] [address] [id number] [place] [address] 5718 Jun, [facility] [place] [facility] [address] [id number] [place] [address] 2415 May, [facility] [place] [facility] [address] [id number] [place] [address] 7030 May, [facility] [place] [facility] [address] [id number] [place] [address] 7241 Apr, [facility] [place] [facility] [address] [id number] [place] [address]- 2165 Apr, [facility] [place] [facility] [address] [id number] [place] [address] 2155 Mar, [facility] [place] [facility] [address] [id number] [place] [address] 2541 Mar, [facility] [address] [id number] [place] [address] 6147 Feb, [facility] [place] [facility] [address] [id number] [place] [address] 8115 Feb, [facility] [address] [id number] [place] [address] 3462 Feb, [facility] [place] [facility] [address] [id number] [place] [address] 8347 Feb, [facility] [address] [id number] [place] [address] 5212 Feb, [facility] [place] [facility] [address] [id number] [place] [address]- 0520 Feb, [facility] [place] [facility] [address] [id number] [place] [address]- 6711 Feb, [facility] [address] [id number] [place] [address] 4199 Jan, [facility] [place] [facility] [address] [id number] [place] [address]- 9020 Jan, [facility] [address] [id number] [place] [address]- 1081 Dec, [facility] [place] [facility] [address] [id number] [place] [address]- 0767 Dec, [facility] [place] [facility] [address] [id number] [place] [address] 1300 Nov, [facility] [place] [facility] [address] [id number] [place] [address] 0455 Nov, [facility] [place] [facility] [address] [id number] [place] [address] 2546 Oct, [facility] [place] [facility] [address] [id number] [place] [address]- 6091 Sep, [facility] [address] [id number] [place] [address]- 9280 Sep, [facility] [place] [facility] [address] [id number] [place] [address]- 3697 August, [facility] [place] [facility] [address] [id number] [place] [address] 3323 August, [facility] [place] [facility] [address] [id number] [place] [address]- 1178 August, [facility] [address] [id number] [place] [address]- 7920 Jul, [facility] [place] [facility] [address] [id number] [place] [address]- 3125 May, [facility] [place] [facility] [address] [id number] [place] [address]- 5371 May, [facility] [place] [facility] [address] [id number], [place] [address]- 9284 Apr, [facility] [place] [facility] [address] [id number] [place] [address]- 7181 Apr, [facility] [place] [facility] [address] [id number], [place] [address]25 Feb, [facility] [place] [facility] [address] [id number] [place] [address] 2777 Feb, [facility] [place] [facility] [address] [id number], [place] [address]- 9095 Jan, [facility] [place] [facility] [address] [id number] [place] [address]- 1777 Jan, [facility] [place] [facility] [address] [id number] [place] [address]- 6958 Jan, [facility] [place] [facility] [address] [id number] [place] [address]- 1754 Nov, [facility] [place] [facility] [address] [id number] [place] [address]- 6712 Nov, [facility] [place] [facility] [address] [id number] [place] [address]- 6084 Nov, [facility] [place] [facility] [address] [id number] [place] [address]- 0882 Nov, [facility] [place] [facility] [address] [id number] [place] [address]- 9250 Nov, [facility] [place] [facility] [address] [id number] [place] [address]- 0413 Oct, [facility] [place] [facility] [address] [id number] [place] [address]- 1418 Oct, [facility] [place] [facility] [address] [id number] [place] [address]- 7125 Oct, [facility] [place] [facility] [address] [id number] [place] [address]- 2859 Oct, [facility] [place] [facility] [address] [id number] [place] [address]- 9177 Oct, [facility] [place] [facility] [address] [id number] [place] [address]- 5508 Oct, [facility] [place] [facility] [address] [id number] [place] [address]- 9653 Oct, [facility] [place] [facility] [address] [id number] [place] [address]- 6495 Sep, [facility] [place] [facility] [address] [id number] [place] [address]- 8517 Sep, [facility] [place] [facility] [address] [id number] [place] [address]- 0817 Sep, [facility] [place] [facility] [address] [id number] [place] [address]- 8448 August, [facility] [place] [facility] [address] [id number] [place] [address]- 9312 Jul, [facility] [place] [facility] [address] [id number] [place] [address]- 7040 28 Jul, 2011 [facility] [address] [id number] [place] [address]- 8341 27 Jul, 2011 [facility] [place] [facility] [address] [id number] [place] [address]- 6163 16 Jul, 2011 [facility] [place] [facility] [address] [id number] [place] [address]- 0761 13 Jul, 2011 [facility] [place] [facility] [address] [id number] [place] [address]- 2543 Jun, [facility] [place] [facility] [address] [id number] [place] [address]- 3851 May, [facility] [place] [facility] [address] [id number] [place] [address]- 9353 Apr, [facility] [address] [id number] [place] [address]- 8354 Apr, [facility] [place] [facility] [address] [id number] [place] [address]- 4746 Apr, [facility] [address] [id number] [place] [address]- 2405 Apr, [facility] [place] [facility] [address] [id number] [place] [address]- 0667 Apr, [facility] [place] [facility] [address] [id number] [place] [address]- 3338 Apr, [facility] [place] [facility] [address] [id number] [place] [address]- 4257 Mar, [facility] [place] [facility] [address] [id number] [place] [address]- 9967 Mar, [facility] [place] [facility] [address] [id number] [place] [address]- 4055 Feb, [facility] [place] [facility] [address] [id number], [place] [address]- 9886 Nov, [facility] [address] [facility] [id number], [place] [address]- 6518 Jun, [facility] [address] [facility] [id number], [place] [address]- 5310 Apr, [facility] [address] [facility] [id number], [place] [address]- 0866 Feb, [facility] [address] [facility] [id number], [place] [address]- 5181 Jan, [facility] [address] [facility] [id number] [place] [address]- 3170 Jan, [facility] [address] [facility] [id number], [place] [address]- 7864 Jan, [facility] [address] [facility] [id number], [place] [address]- 9886 Jan, [facility] [address] [facility] [id number], [place] [address]- 2906 Nov, [facility] [address] [facility] [id number], [place] [address]- 5203 Nov, [facility] [address] [facility] [id number], [place] [address]- 8330 Mar, [facility] [address] [facility] [id number], [place] [address]- 7555 Mar, [facility] [address] [facility] [id number], [place] [address]- 7825 Feb, [facility] [address] [facility] [id number][place] 6144 Feb, [facility] [address] [facility] [id number][place] [address]115 Jan, [facility] [address] [facility] [id number], [place] [address]- 8890 10 May, 2008 IMMUNIZATIONS No Known Immunizations SOCIAL HISTORY Never Assessed REASON FOR VISIT Refill request PLAN OF CARE VITAL SIGNS MEDICATIONS Medication Instructions Dosage Frequency Start Date End Date Duration Status Juan [place]ello DSC 500 mg Orally Three times a day 1 tablet 8h Apr, 30 Active RESULTS No Results PROCEDURES No Known [...]
--- OUTSIDE RECORDS SUMMARY | 2018-03-25 15:14 | XMS REPORT ---
Author Author NAYA JACKSON Organization [facility] Address [address] [place] [address] Care Team Providers Care Bridge Welder Name Role Phone NAYA JACKSON Unavailable PROBLEMS Type Condition ICD9-CM Code ZBY59-NM Code Onset Dates Condition Status SNOMED Code Problem Hypertriglyceridemia E78.1 Active 643784821 Problem Other chronic pain G89.29 Active 59216195 Problem Cervical disc disease M50.90 Active 655481742 Problem Major depressive disorder, single episode, mild F32.0 Active 67768065 Problem Irritable bowel syndrome with diarrhea K58.0 Active 799508203 Problem Paresthesia of bilateral legs R20.2 Active 866821975 Problem Ulcerative pancolitis without complication K51.00 Active 349672840 Problem Abnormal mammogram R92.8 Active 803458924 Problem Polyneuropathy G62.9 Active 42427203 Problem PTSD (post-traumatic stress disorder) F43.10 Active 48892744 Problem Major depressive disorder, recurrent episode, severe F33.2 Active 143884956413 Problem HTN (hypertension) I10 Active 89393346 Problem Depression F32.9 Active 32912336 Problem Parkinsons G20 Active 03977465 Problem Anxiety F41.9 Active 85357196 Problem COPD (chronic obstructive pulmonary disease) J44.9 Active 98506172 Problem Annular psoriasis L40.8 Active 841216688 ALLERGIES No Information ENCOUNTERS Encounter Location Date Diagnosis [facility] [id number] [address] Nov, [facility] [address], [place] [address] Oct, Chronic diarrhea K52.9 and Acute colitis K52.9 [facility] [id number], [place] [address] Oct, Chronic diarrhea K52.9 [facility] [id number] [place] [address] 51723- 4823 Oct, Chronic diarrhea K52.9 and Edema of both legs R60.0 [facility] [id number] [place] [address] 27390- 8158 Sep, Medicare annual wellness visit, initial Z00.00 ; Parkinsons G20 ; COPD (chronic obstructive pulmonary disease) J44.9 ; Major depressive disorder, single episode, mild F32.0 ; HTN (hypertension) I10 ; Hypokalemia E87.6 and Adverse effect of carbonic-anhydrase inhibitors, benzothiadiazides and other diuretics, initial encounter T50.2X5A [facility] [id number] [place] [address] 38392- 1614 Sep, Localized edema R60.0 [facility] [id number] [place] [address] 54765- 6300 Sep, [facility] [address] [place] [address] 70748- 3779 Sep, Major depressive disorder, single episode, mild F32.0 ; PTSD (post-traumatic stress disorder) F43.10 and Edema of both legs R60.0 [facility] [id number] [place] [address] 72568- 1893 August, Localized edema R60.0 [facility] [id number] [place] [address] 13096- 0514 August, Localized edema R60.0 ; Weight gain R63.5 and Irritable bowel syndrome with diarrhea K58.0 [facility] [id number] [place] [address] 46034- 2120 Jul, [facility] [id number] [place] [address] 82813- 1047 Jul, Elevated liver enzymes R74.8 [facility] [address] [place] [address] 95606- 7760 Jul, Polyneuropathy G62.9 [facility] [id number] [place] [address] 52958- 0552 Jul, [facility] [id number] [place] [address] 63540- 0745 Jul, Cervical disc disease M50.90 [facility] [id number] [place] [address] 88254- 7190 Jul, Elevated liver enzymes R74.8 [facility] [id number] [place] [address] 96855- 6196 Jul, Polyneuropathy G62.9 ; Ulcerative pancolitis without complication K51.00 ; Depression F32.9 ; Leg weakness, bilateral R29.898 and Paresthesia of bilateral legs R20.2 [facility] [id number] [place] [address] 55974- 2008 Jul, Polyneuropathy G62.9 ; Ulcerative pancolitis without complication K51.00 ; Depression F32.9 ; Leg weakness, bilateral R29.898 and Paresthesia of bilateral legs R20.2 [facility] [id number] [place] [address] 44733- 8460 Jun, [facility] [id number] [place] [address] 86757- 5355 Jun, Fibrous breast lumps N63.0 [facility] [id number] [place] [address] 86255- 2052 Jun, Ulcerative pancolitis without complication K51.00 [facility] [address] [place] [address] 67027- 5508 Jun, Abnormal mammogram R92.8 [facility] [id number] [place] [address] 01059- 9316 Jun, Breast density R92.2 [facility] [id number] [place] [address] 47229- 9890 Jun, [facility] [address] [place] [address] 19287- 0475 Jun, PTSD (post-traumatic stress disorder) F43.10 [facility] [id number] [place] [address] 04790- 9912 May, [facility] [address] [place] [address] 99029- 2960 May, Breast cancer screening Z12.31 and Fibrous breast lumps N63.0 [facility] [address] [place] [address] 44591- 5710 Apr, Ulcerative pancolitis without complication K51.00 [facility] [id number] [place] [address] 25559- 7999 Apr, [facility] [address] [place] [address] 94786- 0316 Apr, Ulcerative pancolitis without complication K51.00 ; Low back pain M54.5 and Other chronic pain G89.29 [facility] [address] [place] [address] 77454- 9140 Dec, Cervical disc disease M50.90 and HTN (hypertension) I10 [facility] [address] [place] [address] 23252- 8351 05 Dec, 2016 Moderate episode of recurrent major depressive disorder F33.1 and PTSD (post-traumatic stress disorder) F43.10 [facility] [address] [place] [address] 01153- 3465 Oct, [facility] [id number] [place] [address] 60000- 1466 Oct, Irritable bowel syndrome with diarrhea K58.0 [id number] [place] [address] 02616- 5656 07 Oct, 2016 Irritable bowel syndrome with diarrhea K58.0 [facility] [address] [place] [address] 68478- 0897 16 Sep, 2016 Diarrhea, unspecified type R19.7 ; Chronic pain G89.29 ; Hypertriglyceridemia E78.1 ; PTSD (post-traumatic stress disorder) F43.10 ; History of herniated intervertebral disc Z87.39 and Depression F32.9 [facility] [address] [place] [address] 81844- 6395 August, Moderate episode of recurrent major depressive disorder F33.1 and PTSD (post-traumatic stress disorder) F43.10 [facility] [address] 41923- 2523 August, [facility] [address] [address]198- 2517 Jul, [address] 31280- 9719 Jul, PTSD (post-traumatic stress disorder) F43.10 ; IBS ( irritable bowel syndrome) K58.9 ; HTN (hypertension) I10 ; Hypertriglyceridemia E78.1 ; Chronic pain G89.29 ; Anxiety F41.9 ; Depression F32.9 ; COPD (chronic obstructive pulmonary disease) J44.9 ; Irritable bowel syndrome with diarrhea K58.0 and Second degree hemorrhoids K64.1 [facility] [address] 07323- 2608 Jul, PTSD (post-traumatic stress disorder) F43.10 [facility] [address] [place] [address] 03753- 1517 Jul, [facility] [id number] [place] [address] 11472- 7310 Jun, [facility] [address] [place] [address] 81611- 8993 Jun, HTN (hypertension) I10 [address] 03055- 1883 May, Depression F32.9 ; Post traumatic stress disorder F43.10 and Screening mammogram, encounter for Z12.[address] 45988- 6449 May, [facility] [id number] [place] [address] 50043- 6020 May, PTSD (post-traumatic stress disorder) F43.10 and Major depressive disorder in partial remission F32.4 [facility] [address] [place] [address] 15269- 1631 May, PTSD (post-traumatic stress disorder) F43.10 ; IBS ( irritable bowel syndrome) K58.9 ; History of herniated intervertebral disc Z87.39 ; Anxiety F41.9 ; Depression F32.9 ; Hypertriglyceridemia E78.1 ; Eczema of both hands L30.9 ; HTN (hypertension) I10 and COPD (chronic obstructive pulmonary disease) J44.9 [facility] [address] [place] [address] 04067- 0473 Apr, Major depressive disorder in partial remission F32.4 and PTSD (post-traumatic stress disorder) F43.10 [facility] [address] [place] [address] 48265- 8145 Apr, PTSD (post-traumatic stress disorder) F43.10 [facility] [id number] [place] [address] 53804- 2768 Mar, IBS (irritable bowel syndrome) K58.9 ; PTSD (post-traumatic stress disorder) F43.10 ; COPD (chronic obstructive pulmonary disease) J44.9 ; History of herniated intervertebral disc Z87.39 ; HTN (hypertension) I10 ; Parkinsons G20 ; Annular psoriasis L40.8 and Hypertriglyceridemia E78.1 [facility] [place] [place] [address] 86480- 4296 Feb, [id number] [place] [address] 40457- 4105 Feb, Moderate episode of recurrent major depressive disorder F33.1 and PTSD (post-traumatic stress disorder) F43.10 [facility] [address] [place] [address] 79431- 2944 Jan, Onychocryptosis L60.0 [facility] [id number] [place] [address] 93943- 8741 Dec, [facility] [address] 58854- 3743 Dec, Dizziness R42 ; PTSD (post-traumatic stress disorder) F43.10 ; Posttraumatic stress disorder F43.10 ; IBS (irritable bowel syndrome) K58.9 ; History of herniated intervertebral disc Z87.39 ; HTN (hypertension) I10 ; Chronic pain G89.29 and Hypercholesterolemia E78.0 [address] [address] 42528- 7866 Dec, [facility] [address] 98208- 6427 Dec, [facility] [address] 87910 -4604 Dec, Annular psoriasis L40.8 [facility] [address] 48798- 4874 Nov, [address] [facility] [address] 74380- 7152 Nov, [facility] [id number] [place] [address] 08057- 1296 Nov, HTN (hypertension) I10 ; Chronic pain G89.29 ; Annular psoriasis L40.8 ; IBS (irritable bowel syndrome) K58.9 and Vision changes H53.9 [facility] [id number] [place] [address] 01552- 8770 Oct, [facility] [address] 47907- 3980 Oct, IBS (irritable bowel syndrome) K58.9 ; PTSD (post-traumatic stress disorder) F43.10 ; HTN (hypertension) I10 ; Depression F32.9 ; History of herniated intervertebral disc Z87.39 ; Anxiety F41.9 ; Chronic pain G89.29 and Hypercholesterolemia E78.0 [facility] [address] [place] [address] 36757- 8471 Oct, Major depressive disorder in partial remission F32.4 and PTSD (post-traumatic stress disorder) F43.10 [facility] [address] [place] [address] 92100- 9882 Oct, IBS (irritable bowel syndrome) K58.9 ; PTSD (post-traumatic stress disorder) F43.10 ; Major depressive disorder, recurrent episode, severe F33.2 ; Anxiety F41.9 and Impacted cerumen, unspecified laterality H61.20 [facility] [address] [place] [address] 71542- 8774 Oct, Major depressive disorder in partial remission F32.4 ; Posttraumatic stress disorder F43.10 and Anxiety F41.9 [facility] [address] 40615- 3188 Sep, [facility] [address] 20294- 7943 Sep, Anxiety F41.9 ; Major depressive disorder, recurrent episode , mild F33.0 and Posttraumatic stress disorder F43.10 [facility] [address] [place] [address] 29756- 9224 Sep, [facility] [address] [place] [address] 13594- 7576 August, [facility] [address] [place] [address] 68221- 9159 Jul, Contact dermatitis L25.9 [facility] [address] 19886- 7394 Jul, Major depressive disorder, recurrent episode, severe F33.2 ; Posttraumatic stress disorder F43.10 and Anxiety F41.9 [facility] [address] [place] [address] 75579- 9711 Jul, [address] [address] [place] [address] 96118- 3900 Jun, IBS (irritable bowel syndrome) K58.9 ; COPD (chronic obstructive pulmonary disease) J44.9 ; HTN (hypertension) I10 ; Chronic pain G89.29 ; Anxiety F41.9 ; PTSD (post-traumatic stress disorder) F43.10 ; Parkinsons G20 and Hypercholesterolemia E78.0 [address] [place] [address] 71076- 9891 Jun, [facility] [address] [place] [address] 44406- 1342 Jun, Onychocryptosis L60.0 and Onychomycosis B35.1 [facility] [address] [place] [address] 11708- 4400 May, [address] [place] [address] 05007- 3767 May, IBS (irritable bowel syndrome) K58.9 ; COPD (chronic obstructive pulmonary disease) J44.9 ; History of herniated intervertebral disc Z87.39 ; HTN (hypertension) I10 ; Anxiety F41.9 ; Depression F32.9 and Major depressive disorder in partial remission F32.4 [facility] [address] [place] [address] 21821- 2117 08 May, 2015 IBS (irritable bowel syndrome) K58.9 ; COPD (chronic obstructive pulmonary disease) J44.9 ; History of herniated intervertebral disc Z87.39 ; HTN (hypertension) I10 ; Anxiety F41.9 ; Depression F32.9 and Major depressive disorder in partial remission F32.4 [facility] [address] [place] [address] 53643- 4949 May, [facility] [address] [place] [address] 98687- 2844 04 May, 2015 Anxiety F41.9 ; IBS (irritable bowel syndrome) K58.9 and Major depressive disorder in partial remission F32.4 [facility] [address], [place] [address]- 7309 18 Apr, 2015 Encounter for screening mammogram for breast cancer Z12.31 [facility] [address] [place] [address] 18582- 5868 15 Apr, 2015 [facility] [address] [place] [address] 04135- 7415 11 Apr, 2015 [facility] [address] [place] [address] 94002- 5253 Apr, COPD (chronic obstructive pulmonary disease) J44.9 ; HTN ( hypertension) I10 ; Chronic pain G89.29 ; Anxiety F41.9 ; PTSD (post-traumatic stress disorder) F43.10 and IBS (irritable bowel syndrome) K58.9 [address] [place] [address] 79394- 0586 Apr, PTSD (post-traumatic stress disorder) F43.10 [facility] [address] [place] [address] 93775- 1389 08 Apr, 2015 Onychocryptosis L60.0 and Onychomycosis B35.[address] [place] [address] 53160- 5021 04 Apr, 2015 IBS (irritable bowel syndrome) K58.9 ; COPD (chronic obstructive pulmonary disease) J44.9 ; History of herniated intervertebral disc Z87.39 ; HTN (hypertension) I10 ; Chronic pain G89.29 ; Anxiety F41.9 ; Depression F32.9 ; Parkinsons G20 ; Hypercholesteremia E78.0 and Hemorrhoid K64.9 [facility] [address] [place] [address] 42197- 3634 Mar, [address] [place] [address] 10629- 3154 Mar, Major depressive disorder, recurrent episode, severe F33.2 and Posttraumatic stress disorder F43.10 [address], [place] [address] 2546 Mar, [facility] [address] [place] [address] 53912 2546 Mar, [facility] [address] [place] [address] 88056 2546 Mar, PTSD (post-traumatic stress disorder) F43.10 [facility] [address] [place] [address] 00984 2546 Mar, Onychomycosis B35.1 and Hypertension, benign I10 [facility] [address] [place] [address] 55190 2546 Mar, Onychomycosis B35.1 and Hypertension, benign I10 [facility] [address] [place] [address] 88117 2546 Feb, PTSD (post-traumatic stress disorder) F43.10 [facility] [address], [place] [address] 2546 Feb, [facility] [address] [place] [address] 91249 2546 Feb, Major depressive disorder, recurrent episode, severe F33.2 and Posttraumatic stress disorder F43.10 [facility] [address], [place] [address] 2546 Jan, PTSD (post-traumatic stress disorder) F43.10 [facility] [address], [place] [address] 2546 Jan, Rash R21 [facility] [address] [place] [address] 63687 2546 Jan, PTSD (post-traumatic stress disorder) F43.10 [facility] [address], [place] [address] 2546 Jan, [facility] [address] [place] [address] 57825213- 9442 Dec, Neuropathy 355.9 [facility] [address] [place] [address] 61503- 9998 30 Dec, 2014 PTSD (post-traumatic stress disorder) F43.10 [facility] [address] [place] [address] 38004- 4752 29 Dec, 2014 MDD (major depressive disorder), recurrent episode, severe 296.33 and PTSD (post-traumatic stress disorder) 309.81 [facility] [address] [place] [address] 06684- 5083 Dec, [facility] [address] [place] [address] 99809- 5728 Dec, Ingrown toenail 703.0 [facility] [address] [place] [address] 55585- 7605 Dec, Posttraumatic stress disorder 309.81 [facility] [address] [place] [address] 67910- 5909 Nov, Depressive disorder, not elsewhere classified 311 and Anxiety state, unspecified 300.00 [facility] [address] [place] [address] 44877- 0476 Oct, Depressive disorder, not elsewhere classified 311 and Anxiety state, unspecified 300.00 [facility] [address] [place] [address] 83215- 0736 Oct, Depressive disorder, not elsewhere classified 311 ; Anxiety state, unspecified 300.00 and No condition on [place] II V71.09 [facility] [id number] [address] Oct, Dental examination V72.2 [facility] [address] [place] [address] 52053- 1698 Oct, [facility] [address] [place] [address] 29779- 0021 August, [facility] [address] [place] [address] 31773- 1751 August, Seizure 780.39 and IBS (irritable bowel syndrome) 564.1 [facility] [id number] [place] [address]- 7756 14 Jul, 2014 [facility] [address] [facility] [id number] [place] [address]- 0606 Jul, [facility] [id number] [place] [address], [place] [address]- 7846 Jun, [facility] [address] [facility] [id number] [place] [address], [place] [address]- 5397 Jun, [facility] [id number] [place] [address], [place] [address]- 6422 Jun, [facility] [id number] [place] [address]- 7128 Jun, [facility] [id number] [place] [address], [place] [address]- 7397 Jun, [facility] [id number] [place] [address]- 8875 Jun, [facility] [address] [place] [address]- 8442 Jun, [facility] [id number] [place] [address]- 0582 Jun, [facility] [id number] [place] [address]- 2466 Jun, [facility] [address] [facility] [id number] [address]- 2124 Jun, [facility] [id number] [place] [address]- 0006 Jun, [facility] [id number] [place] [address]- 5466 Jun, [facility] [address] 8517 May, [facility] [address] [id number] [place] [address]- 0313 May, [facility] [place] [facility] [address] [id number] [place] [address]- 7850 Apr, [facility] [place] [facility] [address] [id number] [place] [address]- 1533 Apr, [facility] [place] [facility] [address] [id number] [place] [address]- 0570 Mar, [facility] [place] [facility] [address] [id number] [place] [address]- 7810 Mar, [facility] [place] [facility] [address] [id number] [place] [address]- 2946 Mar, [facility] [place] [facility] [address] [id number] [place] [address]- 8072 Mar, [facility] [place] [facility] [address] [id number] [place] [address]- 1571 Mar, [facility] [place] [facility] [address] [id number] [place] [address]- 8190 Mar, [facility] [place] [facility] [address] [id number] [place] [address]- 6868 Mar, [facility] [place] [facility] [address] [id number] [place] [address] Mar, [facility] [place] [facility] [address] [id number] [place] [address] Mar, [facility] [place] [facility] [address] [id number] [place] [address] Mar, [facility] [place] [facility] [address] [id number] [place] [address] Mar, [facility] [place] [facility] [address] [id number] [place] [address] Mar, [facility] [place] [facility] [address] [id number] [place] [address] 03 Mar, 2014 [facility] [place] [facility] [address] [id number] [place] [address] Mar, [facility] [place] [facility] [address] [id number] [place] [address] Mar, [facility] [place] [facility] [address] [id number] [place] [address]- [address] Mar, [facility] [place] [facility] [address] [id number] [place] [address] Mar, [facility] [place] [facility] [address] [id number] [place] [address] Mar, [facility] [place] [facility] [address] [id number] [place] [address] Mar, [facility] [place] [facility] [address] [id number] [place] [address] Feb, [facility] [place] [facility] [address] [id number] [place] [address] 25 Feb, 2014 [facility] [place] [facility] [address] [id number] [place] [address] Feb, [facility] [place] [facility] [address] [facility] [id number] [place] [address] 18 Feb, 2014 [facility] [place] [facility] [address] [id number] [place] [address] 17 Feb, 2014 [facility] [place] [facility] [address] [id number] [address] 17 Feb, 2014 [facility] [place] [facility] [address] [id number] [place] [address] 14 Feb, 2014 [facility] [place] [facility] [address] [id number] [place] [address] 14 Feb, 2014 [facility] [place] [facility] [address] [facility] [id number] [place] [address] 15 Jan, 2014 [facility] [place] [facility] [address] [id number] [place] [address] Jan, [facility] [place] [facility] [address] [id number] [place] [address] Nov, [facility] [place] [facility] [address] [id number] [place] [address] Nov, [facility] [place] [facility] [address] [id number] [place] [address] Oct, [facility] [place] [facility] [address] [id number] [place] [address] Oct, [facility] [place] [facility] [address] [id number] [place] [address] Oct, [facility] [place] [facility] [address] [id number] [place] [address] Oct, [facility] [place] [facility] [address] [id number] [place] [address] Oct, [facility] [place] [facility] [address] [id number] [place] [address] Sep, [facility] [place] [facility] [address] [id number] [place] [address] Sep, [facility] [place] [facility] [address] [id number] [place] [address] August, [facility] [place] [facility] [address] [id number] [place] [address] August, [facility] [place] [facility] [address] [id number] [place] [address] Jun, [facility] [place] [facility] [address] [id number] [place] [address] Jun, [facility] [place] [facility] [address] [id number] [place] [address] Jun, [facility] [place] [facility] [address] [id number] [place] [address] 11 Jun, 2013 [facility] [place] [facility] [address] [id number] [place] [address] 10 Jun, 2013 [facility] [place] [facility] [address] [id number] [place] [address] 10 Jun, 2013 [facility] [place] [facility] [address] [id number] [place] [address] 57[address] Jun, [facility] [place] [facility] [address] [id number] [place] [address] Jun, [facility] [place] [facility] [address] [id number] [place] [address] Jun, [facility] [place] [facility] [address] [id number] [place] [address] Jun, [facility] [place] [facility] [address] [id number] [place] [address] Jun, [facility] [place] [facility] [address] [id number] [place] [address] Jun, [facility] [place] [facility] [address] [id number] [place] [address] Jun, [facility] [place] [facility] [address] [id number] [place] [address] Jun, [facility] [place] [facility] [address] [id number] [place] [address] May, [facility] [place] [facility] [address] [id number] [place] [address] May, [facility] [place] [facility] [address] [id number] [place] [address] Apr, [facility] [place] [facility] [address] [id number] [place] [address] Apr, [facility] [place] [facility] [address] [id number] [place] [address] Mar, [facility] [place] [facility] [address] [id number] [place] [address] Mar, [facility] [address] [id number] [place] [address] Feb, [facility] [place] [facility] [address] [id number] [place] [address] Feb, [facility] [address] [id number] [place] [address] Feb, [facility] [place] [facility] [address] [id number] [place] [address] 9[address] Feb, [facility] [address] [id number] [place] [address] 46[address] Feb, [facility] [place] [facility] [address] [id number] [place] [address] 0107 Feb, [facility] [place] [facility] [address] [id number] [place] [address] 9[address] Feb, [facility] [address] [id number] [place] [address] 89[address] Jan, [facility] [place] [facility] [address] [id number] [place] [address] Jan, [facility] [address] [id number] [place] [address] Dec, [facility] [place] [facility] [address] [id number] [place] [address] Dec, [facility] [place] [facility] [address] [id number] [place] [address] Nov, [facility] [place] [facility] [address] [id number] [place] [address] Nov, [facility] [place] [facility] [address] [id number] [place] [address] 2546 Oct, [facility] [place] [facility] [address] [id number] [place] [address] 37[address] Sep, [facility] [address] [id number] [place] [address] Sep, [facility] [place] [facility] [address] [id number] [place] [address] 78[address] August, [facility] [place] [facility] [address] [id number] [place] [address] 46[address] August, [facility] [place] [facility] [address] [id number] [place] [address] 28[address] August, [facility] [address] [id number] [place] [address] 8[address] Jul, [facility] [place] [facility] [address] [id number] [place] [address] 4[address] May, [facility] [place] [facility] [address] [id number] [place] [address] 6[address] May, [facility] [place] [facility] [address] [id number], [place] [address] Apr, [facility] [place] [facility] [address] [id number] [place] [address] 14[address] Apr, [facility] [place] [facility] [address] [id number], [place] [address] Feb, [facility] [place] [facility] [address] [id number] [place] [address] 2882 Feb, [facility] [place] [facility] [address] [id number], [place] [address] Jan, [facility] [place] [facility] [address] [id number] [place] [address]- 5489 Jan, [facility] [place] [facility] [address] [id number] [place] [address] 0719 Jan, [facility] [place] [facility] [address] [id number] [place] [address]- 2064 Nov, [facility] [place] [facility] [address] [id number] [place] [address] 406[address] Nov, [facility] [place] [facility] [address] [id number] [place] [address]- 3087 Nov, [facility] [place] [facility] [address] [id number] [place] [address]- 2530 Nov, [facility] [place] [facility] [address] [id number] [place] [address]- 5848 Nov, [facility] [place] [facility] [address] [id number] [place] [address] 4161 Oct, [facility] [place] [facility] [address] [id number] [place] [address]- 3045 Oct, [facility] [place] [facility] [address] [id number] [place] [address]- 3527 Oct, [facility] [place] [facility] [address] [id number] [place] [address]- 9848 Oct, [facility] [place] [facility] [address] [id number] [place] [address]- 8798 Oct, [facility] [place] [facility] [address] [id number] [place] [address]- 4635 Oct, [facility] [place] [facility] [address] [id number] [place] [address]- 8102 Oct, [facility] [place] [facility] [address] [id number] [place] [address]- 5048 Sep, [facility] [place] [facility] [address] [id number] [place] [address]- 9684 Sep, [facility] [place] [facility] [address] [id number] [place] [address]- 4721 Sep, [facility] [place] [facility] [address] [id number] [place] [address]- 4992 August, [facility] [place] [facility] [address] [id number] [place] [address]- 8931 Jul, [facility] [place] [facility] [address] [id number] [place] [address]- 7658 28 Jul, 2011 [facility] [address] [id number] [place] [address]- 0710 27 Jul, 2011 [facility] [place] [facility] [address] [id number] [place] [address]- 8799 16 Jul, 2011 [facility] [place] [facility] [address] [id number] [place] [address]- 7318 13 Jul, 2011 [facility] [place] [facility] [address] [id number] [place] [address]- 9391 Jun, [facility] [place] [facility] [address] [id number] [place] [address]- 5402 May, [facility] [place] [facility] [address] [id number] [place] [address]- 6315 Apr, [facility] [address] [id number] [place] [address]- 8719 Apr, [facility] [place] [facility] [address] [id number] [place] [address]- 0628 Apr, [facility] [address] [id number] [place] [address]- 9831 Apr, [facility] [place] [facility] [address] [id number] [place] [address]- 1162 Apr, [facility] [place] [facility] [address] [id number] [place] [address]- 9738 Apr, [facility] [place] [facility] [address] [id number] [place] [address]- 1111 Mar, [facility] [place] [facility] [address] [id number] [place] [address]- 7681 Mar, [facility] [place] [facility] [address] [id number] [place] [address]- 8949 Feb, [facility] [place] [facility] [address] [id number], [place] [address]- [address]876 Nov, [facility] [address] [facility] [id number], [place] [address]- 6846 Jun, [facility] [address] [facility] [id number], [place] [address] Apr, [facility] [address] [facility] [id number], [place] [address]- 7245 Feb, [facility] [address] [facility] [id number], [place] [address]- 4016 Jan, [facility] [address] [facility] [id number] [place] [address]- 8753 Jan, [facility] [address] [facility] [id number], [place] [address]- 3907 Jan, [facility] [address] [facility] [id number], [place] [address]- 6343 Jan, [facility] [address] [facility] [id number], [place] [address]- 2906 Nov, [facility] [address] [facility] [id number], [place] [address]- 3487 Nov, [facility] [address] [facility] [id number], [place] [address]- 5659 Mar, [facility] [address] [facility] [id number][place] [address] Mar, [facility] [address] [facility] [id number], [place] [address]- 0020 Feb, [facility] [address] [facility] [id number][place] Feb, [facility] [address] [facility] [id number][place] Jan, [facility] [place] [facility] [address] [facility] [id number], [place] [address]- [address] 10 May, 2008 IMMUNIZATIONS No Known Immunizations SOCIAL HISTORY Never Assessed REASON FOR VISIT DI PLAN OF CARE VITAL SIGNS MEDICATIONS Unknown Medications RESULTS Name Result Date Reference Range Mammogram Dx, Bilateral 2017-07-02 PROCEDURES No Known procedures INSTRUCTIONS MEDICATIONS ADMINISTERED [...]
--- OUTSIDE RECORDS SUMMARY | 2018-03-25 15:14 | XMS REPORT ---
Author Author ZARA SHIRLEY [facility] e[employer] Address Unknown Phone Unavailable Care Team Providers Care Hotel Maid Name Role Phone ZARA SHIRLEY Unavailable Allergies No Known Allergies Problems Problem Type Condition ICD-9 Code Onset Dates Condition Status Problem Routine gynecological examination V72.31 Active Problem Screening for malignant neoplasm of the cervix V76.2 Active Problem Diverticulitis of colon (without mention of hemorrhage) 562.11 Active Problem Special screening examination, human papillomavirus [HPV] V73.81 Active Problem Hemoptysis, unspecified 786.30 Active Problem Acute bronchitis 466.0 Active Problem Benign paroxysmal positional vertigo 386.11 Active Problem Enlargement of lymph nodes 785.6 Active Problem Paralysis agitans 332.0 Active Problem Contact dermatitis and other eczema due to solvents 692.2 Active Problem Dizziness and giddiness 780.4 Active Problem Lumbago 724.2 Active Problem Encounter for long-term (current) use of other medications V58.69 Active Problem Other abnormal glucose 790.29 Active Problem Brachial neuritis or radiculitis nos. 723.4 Active Problem Cervicalgia 723.1 Active Problem Anxiety state, unspecified 300.00 Active Problem Palpitations 785.1 Active Problem Unspecified constipation 564.00 Active Problem Urinary tract infection, site not specified 599.0 Active Problem Unspecified essential hypertension 401.9 Active Problem Depressive disorder, not elsewhere classified 311 Active Problem Other chronic pain 338.29 Active Assessment Dental examination V72.2 Active Problem Essential and other specified forms of tremor 333.1 Active Problem ZOSTAVAX DX V05.8 Active Problem Unspecified hypertrophic and atrophic condition of skin 701.9 Active Problem Irritable bowel syndrome 564.1 Active Problem Special screening for malignant neoplasms, colon V76.51 Active Problem Candidiasis of mouth 112.0 Active Problem Other specified counseling V65.49 Active Problem Disturbance of salivary secretion 527.7 Active Problem Other and unspecified noninfectious gastroenteritis and colitis 558.9 Active Problem Acute sinusitis, unspecified 461.9 Active Problem Mastodynia 611.71 Active Problem Subacute dyskinesia due to drugs 333.85 Active Problem Chronic airway obstruction, not elsewhere classified 496 Active Problem Actinic keratosis 702.0 Active Problem Nausea with vomiting 787.01 Active Problem Viral warts, unspecified 078.10 Active Problem Other and unspecified diseases of the oral soft tissues 528.9 Active Problem Unspecified breast screening V76.10 Active Medications No Known Medications Procedures Procedure Coding System Code Date INTRAORL-PERIAPICAL 1 FILM 43556 CPT-4 D0220 November 06, 2014 SURG REMOVAL ERUPTED TOOTH CPT-4 D7210 November 06, 2014 LTD ORAL EVALUATION - PROBLEM FOCUS CPT-4 D0140 November 06, 2014 Results No Known Results Summary Purpose eClinicalWorks Submission
--- OUTSIDE RECORDS SUMMARY | 2018-03-25 15:15 | XMS REPORT ---
Author Author MESFIN LEVIN [facility] Address [address] [place] [address] Care Team Providers Care Safety Deposit Clerk Name Role Phone MESFIN LEVIN Unavailable PROBLEMS Type Condition ICD9-CM Code [id number] Code Onset Dates Condition Status SNOMED Code Problem Chronic pain G89.29 Active 00457226 Problem History of herniated intervertebral disc Z87.39 Active 514342987 Problem HTN (hypertension) I10 Active 50537278 Problem Dizziness R42 Active 342878327 Problem Annular psoriasis L40.8 Active 561896302 Problem IBS (irritable bowel syndrome) K58.9 Active 69857713 Problem COPD (chronic obstructive pulmonary disease) J44.9 Active 20527997 Problem Moderate episode of recurrent major depressive disorder F33.1 Active 921038666 Problem Impacted cerumen, unspecified laterality H61.20 Active 32929800 Problem ZOSTAVAX DX V05.8 Active 10937914 Problem Major depressive disorder in partial remission F32.4 Active 13256241 Problem Parkinsons G20 Active 69101463 Problem PTSD (post-traumatic stress disorder) F43.10 Active 44406063 Problem Depression F32.9 Active 49289274 Problem Major depressive disorder, recurrent episode, severe F33.2 Active 241328669379 Problem Anxiety F41.9 Active 74041893 ALLERGIES Unknown Allergies SOCIAL HISTORY No smoking Hx information available PLAN OF CARE VITAL SIGNS MEDICATIONS Unknown Medications RESULTS No Results PROCEDURES No Known procedures IMMUNIZATIONS No Known Immunizations
--- OUTSIDE RECORDS SUMMARY | 2018-03-25 15:15 | XMS REPORT ---
Author MARYANA Deng [facility] eClinicalWorks Address Unknown Phone Unavailable Care Team Providers Care Environmental Services Supervisor Name Role Phone MARYANA ROJO CP Unavailable Allergies, Adverse Reactions, Alerts Substance Reaction Event Type Latex Info Not Available Drug Allergy Problems Problem Type Condition Code Onset Dates Condition Status Problem Major depressive disorder in partial remission F32.4 Active Problem Depression F32.9 Active Problem Parkinsons G20 Active Problem IBS (irritable bowel syndrome) K58.9 Active Assessment Chronic pain G89.29 Active Problem COPD (chronic obstructive pulmonary disease) J44.9 Active Assessment Hypercholesterolemia E78.0 Active Problem Impacted cerumen, unspecified laterality H61.20 Active Problem Chronic pain G89.29 Active Problem Anxiety F41.9 Active Problem History of herniated intervertebral disc Z87.39 Active Problem HTN (hypertension) I10 Active Assessment Depression F32.9 Active Assessment HTN (hypertension) I10 Active Assessment Anxiety F41.9 Active Assessment History of herniated intervertebral disc Z87.39 Active Problem ZOSTAVAX DX V05.8 Active Problem PTSD (post-traumatic stress disorder) F43.10 Active Assessment PTSD (post-traumatic stress disorder) F43.10 Active Problem Posttraumatic stress disorder F43.10 Active Assessment IBS (irritable bowel syndrome) K58.9 Active Problem Major depressive disorder, recurrent episode, severe F33.2 Active Medications Medication Code System Code Instructions Start Date End Date Status Dosage Verapamil HCl CR [facility] 46917259805 180 MG TAKE ONE TABLET BY MOUTH ONCE DAILY Hydrochlorothiazide [facility] [address]-37 25 MG Orally Once a day 1 tablet Cymbalta [facility] 01743790634 60MG Orally Once a day 1 capsule Indomethacin [facility] 29014352973 25 MG Orally Three times a day 1 capsule with food Neurontin [facility] 10925281757 400 MG Orally 3 times a day 1 capsule Acidophilus [facility] 93617562435 100 MG Orally Once a day 1 Simvastatin [facility] 78531551235 40 MG Orally Once a day 1 tablet in the evening Clonazepam [facility] 04118721429 0.5 MG Orally TAKE ONE TABLET BY MOUTH ONCE DAILY IN THE AFTERNOON 1 tablet Bentyl [facility] 16508131880 10 MG Orally Four times a day 1 capsule Colestid [facility] [address]-79 5 GM Orally every other day October 30, 2015 1 packet mixed with water or non-carbonated drink Procedures Procedure Coding System Code Date Office Visit, Est Pt., Level 3 CPT-4 39781 November 13, 2015 Vital Signs Date/Time: November 13, 2015 Cardiac Monitoring Heart Rate 88 bpm Weight 152.3 lbs Height 64 in Blood Pressure Diastolic 76 mmHg Blood Pressure Systolic 118 mmHg Results No Known Results Summary Purpose eClinicalWorks Submission
--- OUTSIDE RECORDS SUMMARY | 2018-03-25 15:15 | XMS REPORT ---
Author Author NAYA JACKSON Organization [facility] Address [address] [place] [address] Care Team Providers Care Insurance Claims Adjuster Name Role Phone NAYA JACKSON Unavailable PROBLEMS Type Condition ICD9-CM Code OAF91-XI Code Onset Dates Condition Status SNOMED Code Problem Hypertriglyceridemia E78.1 Active 593540476 Problem Other chronic pain G89.29 Active 33356957 Problem Cervical disc disease M50.90 Active 192020824 Problem Major depressive disorder, single episode, mild F32.0 Active 74670327 Problem Irritable bowel syndrome with diarrhea K58.0 Active 255434055 Problem Paresthesia of bilateral legs R20.2 Active 306207466 Problem Ulcerative pancolitis without complication K51.00 Active 729825930 Problem Abnormal mammogram R92.8 Active 336744040 Problem Polyneuropathy G62.9 Active 64537675 Problem PTSD (post-traumatic stress disorder) F43.10 Active 18464387 Problem Major depressive disorder, recurrent episode, severe F33.2 Active 736345080802 Problem HTN (hypertension) I10 Active 41101061 Problem Depression F32.9 Active 88082482 Problem Parkinsons G20 Active 37107233 Problem Anxiety F41.9 Active 69847429 Problem COPD (chronic obstructive pulmonary disease) J44.9 Active 88604328 Problem Annular psoriasis L40.8 Active 768687052 ALLERGIES No Information ENCOUNTERS Encounter Location Date Diagnosis [facility] [id number], [place] [address] Nov, [facility] [address], [place] [address] Oct, Chronic diarrhea K52.9 and Acute colitis K52.9 [facility] [id number], [place] [address] Oct, Chronic diarrhea K52.9 [facility] [id number] [place] [address] 45772- 4140 Oct, Chronic diarrhea K52.9 and Edema of both legs R60.0 [facility] [id number] [place] [address] 82906- 0815 Sep, Medicare annual wellness visit, initial Z00.00 ; Parkinsons G20 ; COPD (chronic obstructive pulmonary disease) J44.9 ; Major depressive disorder, single episode, mild F32.0 ; HTN (hypertension) I10 ; Hypokalemia E87.6 and Adverse effect of carbonic-anhydrase inhibitors, benzothiadiazides and other diuretics, initial encounter T50.2X5A [facility] [id number] [place] [address] 56143- 7041 Sep, Localized edema R60.0 [facility] [id number] [place] [address] 82931- 7318 Sep, [facility] [id number] [place] [address] 20275- 1675 Sep, Major depressive disorder, single episode, mild F32.0 ; PTSD (post-traumatic stress disorder) F43.10 and Edema of both legs R60.0 [facility] [id number] [place] [address] 19149- 7795 August, Localized edema R60.0 [facility] [id number] [place] [address] 48947- 9231 August, Localized edema R60.0 ; Weight gain R63.5 and Irritable bowel syndrome with diarrhea K58.0 [facility] [id number] [place] [address] 95790- 0375 Jul, [facility] [id number] [place] [address] 47303- 5516 Jul, Elevated liver enzymes R74.8 [facility] [id number] [place] [address] 74620- 4776 Jul, Polyneuropathy G62.9 [facility] [id number] [place] [address] 06827- 4164 Jul, [facility] [id number] [place] [address] 91489- 2298 Jul, Cervical disc disease M50.90 [facility] [id number] [place] [address] 06644- 6330 Jul, Elevated liver enzymes R74.8 [facility] [id number] [place] [address] 31794- 3667 Jul, Polyneuropathy G62.9 ; Ulcerative pancolitis without complication K51.00 ; Depression F32.9 ; Leg weakness, bilateral R29.898 and Paresthesia of bilateral legs R20.2 [facility] [id number] [place] [address] 07075- 0978 Jul, Polyneuropathy G62.9 ; Ulcerative pancolitis without complication K51.00 ; Depression F32.9 ; Leg weakness, bilateral R29.898 and Paresthesia of bilateral legs R20.2 [facility] [id number] [place] [address] 79323- 2573 Jun, [facility] [id number] [place] [address] 80631- 8129 Jun, Fibrous breast lumps N63.0 [facility] [id number] [place] [address] 44688- 7025 Jun, Ulcerative pancolitis without complication K51.00 [address] [id number] [place] [address] 39217- 6095 Jun, Abnormal mammogram R92.8 [facility] [id number] [place] [address] 74455- 8789 Jun, Breast density R92.2 [facility] [id number] [place] [address] 37503- 7016 Jun, [facility] [id number] [place] [address] 98136- 3910 Jun, PTSD (post-traumatic stress disorder) F43.10 [facility] [id number] [place] [address] 48532- 4582 May, [facility] [id number] [place] [address] 71121- 6202 May, Breast cancer screening Z12.31 and Fibrous breast lumps N63.0 [facility] [id number] [place] [address] 24064- 4456 Apr, Ulcerative pancolitis without complication K51.00 [facility] [id number] [place] [address] 60044- 6735 Apr, [facility] [id number] [place] [address] 94918- 0866 Apr, Ulcerative pancolitis without complication K51.00 ; Low back pain M54.5 and Other chronic pain G89.29 [facility] [id number] [place] [address] 22647- 7653 Dec, Cervical disc disease M50.90 and HTN (hypertension) I10 [facility] [id number] [place] [address] 94043- 1967 05 Dec, 2016 Moderate episode of recurrent major depressive disorder F33.1 and PTSD (post-traumatic stress disorder) F43.10 [facility] [id number] [place] [address] 80655- 5482 Oct, [facility] [id number] [place] [address] 37511- 9862 Oct, Irritable bowel syndrome with diarrhea K58.0 [id number] [place] [address] 60072- 7494 07 Oct, 2016 Irritable bowel syndrome with diarrhea K58.0 [facility] [id number] [place] [address] 12965- 3291 16 Sep, 2016 Diarrhea, unspecified type R19.7 ; Chronic pain G89.29 ; Hypertriglyceridemia E78.1 ; PTSD (post-traumatic stress disorder) F43.10 ; History of herniated intervertebral disc Z87.39 and Depression F32.9 [facility] [id number] [place] [address] 54302- 8046 August, Moderate episode of recurrent major depressive disorder F33.1 and PTSD (post-traumatic stress disorder) F43.10 [address] [address] 56311- 5300 August, [facility] [facility] [address] 02601- 2821 Jul, [address] 54621- 8542 Jul, PTSD (post-traumatic stress disorder) F43.10 ; IBS ( irritable bowel syndrome) K58.9 ; HTN (hypertension) I10 ; Hypertriglyceridemia E78.1 ; Chronic pain G89.29 ; Anxiety F41.9 ; Depression F32.9 ; COPD (chronic obstructive pulmonary disease) J44.9 ; Irritable bowel syndrome with diarrhea K58.0 and Second degree hemorrhoids K64.1 [facility] [facility] [address] 98759- 5706 Jul, PTSD (post-traumatic stress disorder) F43.10 [facility] [id number] [place] [address] 25973- 3152 Jul, [facility] [id number] [place] [address] 57675- 3357 Jun, [facility] [id number] [place] [address] 38073- 0274 Jun, HTN (hypertension) I10 [address] 81331- 1754 May, Depression F32.9 ; Post traumatic stress disorder F43.10 and Screening mammogram, encounter for Z12.[address] 32920- 5523 May, [facility] [id number] [place] [address] 34441- 6774 May, PTSD (post-traumatic stress disorder) F43.10 and Major depressive disorder in partial remission F32.4 [facility] [id number] [place] [address] 67678- 7569 May, PTSD (post-traumatic stress disorder) F43.10 ; IBS ( irritable bowel syndrome) K58.9 ; History of herniated intervertebral disc Z87.39 ; Anxiety F41.9 ; Depression F32.9 ; Hypertriglyceridemia E78.1 ; Eczema of both hands L30.9 ; HTN (hypertension) I10 and COPD (chronic obstructive pulmonary disease) J44.9 [facility] [address] [place] [address] 80223- 1126 Apr, Major depressive disorder in partial remission F32.4 and PTSD (post-traumatic stress disorder) F43.10 [facility] [place] [address] [place] [address] 47939- 2152 Apr, PTSD (post-traumatic stress disorder) F43.10 [facility] [id number] [place] [address] 69700- 7278 Mar, IBS (irritable bowel syndrome) K58.9 ; PTSD (post-traumatic stress disorder) F43.10 ; COPD (chronic obstructive pulmonary disease) J44.9 ; History of herniated intervertebral disc Z87.39 ; HTN (hypertension) I10 ; Parkinsons G20 ; Annular psoriasis L40.8 and Hypertriglyceridemia E78.1 [address] [address] [place] [address] 08161- 9726 Feb, [id number] [place] [address] 65226- 2607 Feb, Moderate episode of recurrent major depressive disorder F33.1 and PTSD (post-traumatic stress disorder) F43.10 [facility] [id number] [place] [address] 56780- 1837 Jan, Onychocryptosis L60.0 [facility] [id number] [place] [address] 51418- 7449 Dec, [facility] [address] 94731- 4200 Dec, Dizziness R42 ; PTSD (post-traumatic stress disorder) F43.10 ; Posttraumatic stress disorder F43.10 ; IBS (irritable bowel syndrome) K58.9 ; History of herniated intervertebral disc Z87.39 ; HTN (hypertension) I10 ; Chronic pain G89.29 and Hypercholesterolemia E78.0 [address] [address] [address] 77618- 1073 Dec, [facility] [address] 78756- 4203 Dec, [facility] [address] 44721 -5627 Dec, Annular psoriasis L40.8 [facility] [address] 05315- 8879 Nov, [address] [address] 65235- 5577 Nov, [facility] [id number] [place] [address] 53578- 8220 Nov, HTN (hypertension) I10 ; Chronic pain G89.29 ; Annular psoriasis L40.8 ; IBS (irritable bowel syndrome) K58.9 and Vision changes H53.9 [facility] [id number] [place] [address] 31757- 6703 Oct, [facility] [address] 97385- 7636 Oct, IBS (irritable bowel syndrome) K58.9 ; PTSD (post-traumatic stress disorder) F43.10 ; HTN (hypertension) I10 ; Depression F32.9 ; History of herniated intervertebral disc Z87.39 ; Anxiety F41.9 ; Chronic pain G89.29 and Hypercholesterolemia E78.0 [facility] [id number] [place] [address] 54568- 8401 Oct, Major depressive disorder in partial remission F32.4 and PTSD (post-traumatic stress disorder) F43.10 [facility] [id number] [place] [address] 05512- 8751 Oct, IBS (irritable bowel syndrome) K58.9 ; PTSD (post-traumatic stress disorder) F43.10 ; Major depressive disorder, recurrent episode, severe F33.2 ; Anxiety F41.9 and Impacted cerumen, unspecified laterality H61.20 [facility] [id number] [place] [address] 72474- 1438 Oct, Major depressive disorder in partial remission F32.4 ; Posttraumatic stress disorder F43.10 and Anxiety F41.9 [address] [address] 06267- 9687 Sep, [facility] [facility] [address] 05356- 1951 Sep, Anxiety F41.9 ; Major depressive disorder, recurrent episode , mild F33.0 and Posttraumatic stress disorder F43.10 [facility] [id number] [place] [address] 82708- 6279 Sep, [facility] [id number] [place] [address] 89074- 3522 August, [facility] [id number] [place] [address] 21444- 7209 Jul, Contact dermatitis L25.9 [facility] [address] 43521- 3399 Jul, Major depressive disorder, recurrent episode, severe F33.2 ; Posttraumatic stress disorder F43.10 and Anxiety F41.9 [facility] [id number] [place] [address] 03645- 4823 Jul, [facility] [address] [place] [address] 40655- 0003 Jun, IBS (irritable bowel syndrome) K58.9 ; COPD (chronic obstructive pulmonary disease) J44.9 ; HTN (hypertension) I10 ; Chronic pain G89.29 ; Anxiety F41.9 ; PTSD (post-traumatic stress disorder) F43.10 ; Parkinsons G20 and Hypercholesterolemia E78.0 [id number] [place] [address] 14558- 4400 Jun, [facility] [id number] [place] [address] 42798- 2167 Jun, Onychocryptosis L60.0 and Onychomycosis B35.1 [facility] [id number] [place] [address] 45001- 4437 May, [address] [id number] [place] [address] 27847- 0910 May, IBS (irritable bowel syndrome) K58.9 ; COPD (chronic obstructive pulmonary disease) J44.9 ; History of herniated intervertebral disc Z87.39 ; HTN (hypertension) I10 ; Anxiety F41.9 ; Depression F32.9 and Major depressive disorder in partial remission F32.4 [facility] [id number] [place] [address] 65836- 7928 08 May, 2015 IBS (irritable bowel syndrome) K58.9 ; COPD (chronic obstructive pulmonary disease) J44.9 ; History of herniated intervertebral disc Z87.39 ; HTN (hypertension) I10 ; Anxiety F41.9 ; Depression F32.9 and Major depressive disorder in partial remission F32.4 [facility] [id number] [place] [address] 98248- 7099 May, [facility] [id number] [place] [address] 82168- 3673 04 May, 2015 Anxiety F41.9 ; IBS (irritable bowel syndrome) K58.9 and Major depressive disorder in partial remission F32.4 [address] [address], [place] [address]- 9265 18 Apr, 2015 Encounter for screening mammogram for breast cancer Z12.31 [facility] [id number] [place] [address] 01587- 5965 15 Apr, 2015 [facility] [id number] [place] [address] 72333- 4890 11 Apr, 2015 [facility] [id number] [place] [address] 80401- 4792 Apr, COPD (chronic obstructive pulmonary disease) J44.9 ; HTN ( hypertension) I10 ; Chronic pain G89.29 ; Anxiety F41.9 ; PTSD (post-traumatic stress disorder) F43.10 and IBS (irritable bowel syndrome) K58.9 [id number] [place] [address] 65656- 6256 Apr, PTSD (post-traumatic stress disorder) F43.10 [facility] [id number] [place] [address] 63333- 8125 08 Apr, 2015 Onychocryptosis L60.0 and Onychomycosis B35.[address] [place] [address] 30988- 5177 04 Apr, 2015 IBS (irritable bowel syndrome) K58.9 ; COPD (chronic obstructive pulmonary disease) J44.9 ; History of herniated intervertebral disc Z87.39 ; HTN (hypertension) I10 ; Chronic pain G89.29 ; Anxiety F41.9 ; Depression F32.9 ; Parkinsons G20 ; Hypercholesteremia E78.0 and Hemorrhoid K64.9 [facility] [id number] [place] [address] 31867- 0250 Mar, [id number] [place] [address] 12573- 1949 Mar, Major depressive disorder, recurrent episode, severe F33.2 and Posttraumatic stress disorder F43.10 [address] [place] [address] 2546 Mar, [facility] [address] [place] [address] 58218 2546 Mar, [facility] [address] [place] [address] 25597 2546 Mar, PTSD (post-traumatic stress disorder) F43.10 [facility] [id number] [place] [address] 81241 2546 Mar, Onychomycosis B35.1 and Hypertension, benign I10 [facility] [id number] [place] [address] 51283 2546 Mar, Onychomycosis B35.1 and Hypertension, benign I10 [facility] [id number] [place] [address] 95619 2546 Feb, PTSD (post-traumatic stress disorder) F43.10 [facility] [address], [place] [address] 2546 Feb, [facility] [address] [place] [address] 51849 2546 Feb, Major depressive disorder, recurrent episode, severe F33.2 and Posttraumatic stress disorder F43.10 [facility] [address], [place] [address] 2546 Jan, PTSD (post-traumatic stress disorder) F43.10 [facility] [address], [place] [address] 2546 Jan, Rash R21 [facility] [address] [place] [address] 76580 2546 Jan, PTSD (post-traumatic stress disorder) F43.10 [facility] [address], [place] [address] 2546 Jan, [facility] [address] [place] [address] 12615471- 8109 Dec, Neuropathy 355.9 [facility] [address] [place] [address] 45778- 1241 30 Dec, 2014 PTSD (post-traumatic stress disorder) F43.10 [facility] [address] [place] [address] 66923- 4206 29 Dec, 2014 MDD (major depressive disorder), recurrent episode, severe 296.33 and PTSD (post-traumatic stress disorder) 309.81 [facility] [id number] [place] [address] 62978- 2849 Dec, [facility] [id number] [place] [address] 57402- 6184 Dec, Ingrown toenail 703.0 [facility] [id number] [place] [address] 14081- 9999 Dec, Posttraumatic stress disorder 309.81 [facility] [id number] [place] [address] 70567- 1833 Nov, Depressive disorder, not elsewhere classified 311 and Anxiety state, unspecified 300.00 [facility] [id number] [place] [address] 20820- 4200 Oct, Depressive disorder, not elsewhere classified 311 and Anxiety state, unspecified 300.00 [facility] [id number] [place] [address] 59717- 7604 Oct, Depressive disorder, not elsewhere classified 311 ; Anxiety state, unspecified 300.00 and No condition on [place] II V71.09 [facility] [id number] [id number] Oct, Dental examination V72.2 [facility] [id number] [place] [address] 11184- 9925 Oct, [facility] [address] [place] [address] 45818- 9409 August, [facility] [id number] [place] [address] 68054- 9095 August, Seizure 780.39 and IBS (irritable bowel syndrome) 564.1 [facility] [id number] [place] [address]- 9876 14 Jul, 2014 [facility] [address] [facility] [id number] [place] [address]- 1616 Jul, [facility] [id number] [place] [address], [place] [address]- 9696 Jun, [facility] [address] [facility] [id number] [place] [address], [place] [address]- 0623 Jun, [facility] [id number] [place] [address], [place] [address]- 9475 Jun, [facility] [id number] [place] [address]- 0849 Jun, [facility] [id number] [place] [address], [place] [address]- 2478 Jun, [facility] [id number] [place] [address]- 8907 Jun, [facility] [address] [place] [address]- 7032 Jun, [facility] [id number] [place] [address]- 7437 Jun, [facility] [id number] [place] [address]- 2888 Jun, [facility] [address] [facility] [id number] [address]- 6130 Jun, [facility] [id number] [place] [address]- 8276 Jun, [facility] [id number] [place] [address]- 1646 Jun, [facility] [address] 2035 May, [facility] [address] [id number] [place] [address]- 1540 May, [facility] [place] [facility] [address] [id number] [place] [address]- 7045 Apr, [facility] [place] [facility] [address] [id number] [place] [address]- 9073 Apr, [facility] [place] [facility] [address] [id number] [place] [address]- 2331 Mar, [facility] [place] [facility] [address] [id number] [place] [address]- 2677 Mar, [facility] [place] [facility] [address] [id number] [place] [address]- 8591 Mar, [facility] [place] [facility] [address] [id number] [place] [address]- 6667 Mar, [facility] [place] [facility] [address] [id number] [place] [address]- 4559 Mar, [facility] [place] [facility] [address] [id number] [place] [address]- 7857 Mar, [facility] [place] [facility] [address] [id number] [place] [address]- 6391 Mar, [facility] [place] [facility] [address] [id number] [place] [address] Mar, [facility] [place] [facility] [address] [id number] [place] [address] Mar, [facility] [place] [facility] [address] [id number] [place] [address] Mar, [facility] [place] [facility] [address] [id number] [place] [address] Mar, [facility] [place] [facility] [address] [id number] [place] [address] Mar, [facility] [place] [facility] [address] [id number] [place] [address] 03 Mar, 2014 [facility] [place] [facility] [address] [id number] [place] [address] Mar, [facility] [place] [facility] [address] [id number] [place] [address] Mar, [facility] [place] [facility] [address] [id number] [place] [address] Mar, [facility] [place] [facility] [address] [id number] [place] [address] Mar, [facility] [place] [facility] [address] [id number] [place] [address]- [address] Mar, [facility] [place] [facility] [address] [id number] [place] [address] Mar, [facility] [place] [facility] [address] [id number] [place] [address] Feb, [facility] [place] [facility] [address] [id number] [place] [address] 25 Feb, 2014 [facility] [place] [facility] [address] [id number] [place] [address] Feb, [facility] [place] [facility] [address] [facility] [id number] [place] [address] 18 Feb, 2014 [facility] [place] [facility] [address] [id number] [place] [address] 17 Feb, 2014 [facility] [place] [facility] [address] [id number], [place] [address] 17 Feb, 2014 [facility] [place] [facility] [address] [id number] [place] [address] 14 Feb, 2014 [facility] [place] [facility] [address] [id number] [place] [address] 14 Feb, 2014 [facility] [place] [facility] [address] [facility] [id number] [place] [address] 15 Jan, 2014 [facility] [place] [facility] [address] [id number] [place] [address] Jan, [facility] [place] [facility] [address] [id number] [place] [address] Nov, [facility] [place] [facility] [address] [id number] [place] [address] Nov, [facility] [place] [facility] [address] [id number] [place] [address] Oct, [facility] [place] [facility] [address] [id number] [place] [address] Oct, [facility] [place] [facility] [address] [id number] [place] [address] Oct, [facility] [place] [facility] [address] [id number] [place] [address] Oct, [facility] [place] [facility] [address] [id number] [place] [address] Oct, [facility] [place] [facility] [address] [id number] [place] [address] Sep, [facility] [place] [facility] [address] [id number] [place] [address] Sep, [facility] [place] [facility] [address] [id number] [place] [address] August, [facility] [place] [facility] [address] [id number] [place] [address] August, [facility] [place] [facility] [address] [id number] [place] [address] Jun, [facility] [place] [facility] [address] [id number] [place] [address] 34[address] Jun, [facility] [place] [facility] [address] [id number] [place] [address] Jun, [facility] [place] [facility] [address] [id number] [place] [address] 11 Jun, 2013 [facility] [place] [facility] [address] [id number] [place] [address] 10 Jun, 2013 [facility] [place] [facility] [address] [id number] [place] [address] 10 Jun, 2013 [facility] [place] [facility] [address] [id number] [place] [address] 14[address] Jun, [facility] [place] [facility] [address] [id number] [place] [address] Jun, [facility] [place] [facility] [address] [id number] [place] [address] 8769 Jun, [facility] [place] [facility] [address] [id number] [place] [address] Jun, [facility] [place] [facility] [address] [id number] [place] [address] 0[address] Jun, [facility] [place] [facility] [address] [id number] [place] [address]77 Jun, [facility] [place] [facility] [address] [id number] [place] [address] 7[address] Jun, [facility] [place] [facility] [address] [id number] [place] [address] 6[address] Jun, [facility] [place] [facility] [address] [id number] [place] [address] 95[address] May, [facility] [place] [facility] [address] [id number] [place] [address] May, [facility] [place] [facility] [address] [id number] [place] [address] 8[address] Apr, [facility] [place] [facility] [address] [id number] [place] [address] Apr, [facility] [place] [facility] [address] [id number] [place] [address] Mar, [facility] [place] [facility] [address] [id number] [place] [address] Mar, [facility] [address] [id number] [place] [address] 47[address] Feb, [facility] [place] [facility] [address] [id number] [place] [address] 87[address] Feb, [facility] [address] [id number] [place] [address] 2097 Feb, [facility] [place] [facility] [address] [id number] [place] [address] Feb, [facility] [address] [id number] [place] [address] Feb, [facility] [place] [facility] [address] [id number] [place] [address] 59[address] Feb, [facility] [place] [facility] [address] [id number] [place] [address] 7[address] Feb, [facility] [address] [id number] [place] [address] Jan, [facility] [place] [facility] [address] [id number] [place] [address] 9[address] Jan, [facility] [address] [id number] [place] [address] 6560 Dec, [facility] [place] [facility] [address] [id number] [place] [address] 7689 Dec, [facility] [place] [facility] [address] [id number] [place] [address] 70[address] Nov, [facility] [place] [facility] [address] [id number] [place] [address] 9[address] Nov, [facility] [place] [facility] [address] [id number] [place] [address] 2546 Oct, [facility] [place] [facility] [address] [id number] [place] [address] 58[address] Sep, [facility] [address] [id number] [place] [address] 1826 Sep, [facility] [place] [facility] [address] [id number] [place] [address] August, [facility] [place] [facility] [address] [id number] [place] [address] 76[address] August, [facility] [place] [facility] [address] [id number] [place] [address] 37[address] August, [facility] [address] [id number] [place] [address] 15[address] Jul, [facility] [place] [facility] [address] [id number] [place] [address] 6[address] May, [facility] [place] [facility] [address] [id number] [place] [address] 5614 May, [facility] [place] [facility] [address] [id number], [place] [address] Apr, [facility] [place] [facility] [address] [id number] [place] [address] 4[address] Apr, [facility] [place] [facility] [address] [id number], [place] [address] Feb, [facility] [place] [facility] [address] [id number] [place] [address] 9280 Feb, [facility] [place] [facility] [address] [id number], [place] [address] Jan, [facility] [place] [facility] [address] [id number] [place] [address] 3160 Jan, [facility] [place] [facility] [address] [id number] [place] [address] 3885 Jan, [facility] [place] [facility] [address] [id number] [place] [address] 7108 Nov, [facility] [place] [facility] [address] [id number] [place] [address]- 8961 Nov, [facility] [place] [facility] [address] [id number] [place] [address] 9625 Nov, [facility] [place] [facility] [address] [id number] [place] [address]- 3927 Nov, [facility] [place] [facility] [address] [id number] [place] [address] 5934 Nov, [facility] [place] [facility] [address] [id number] [place] [address] 3890 Oct, [facility] [place] [facility] [address] [id number] [place] [address] 0013 Oct, [facility] [place] [facility] [address] [id number] [place] [address]- 3069 Oct, [facility] [place] [facility] [address] [id number] [place] [address]- 8785 Oct, [facility] [place] [facility] [address] [id number] [place] [address]- 2809 Oct, [facility] [place] [facility] [address] [id number] [place] [address]- 0652 Oct, [facility] [place] [facility] [address] [id number] [place] [address]- 9050 Oct, [facility] [place] [facility] [address] [id number] [place] [address]- 0814 Sep, [facility] [place] [facility] [address] [id number] [place] [address]- 4022 Sep, [facility] [place] [facility] [address] [id number] [place] [address]- 7868 Sep, [facility] [place] [facility] [address] [id number] [place] [address]- 2118 August, [facility] [place] [facility] [address] [id number] [place] [address]- 3077 Jul, [facility] [place] [facility] [address] [id number] [place] [address]- 5038 28 Jul, 2011 [facility] [address] [id number] [place] [address]- 3346 27 Jul, 2011 [facility] [place] [facility] [address] [id number] [place] [address]- 8199 16 Jul, 2011 [facility] [place] [facility] [address] [id number] [place] [address]- 1210 13 Jul, 2011 [facility] [place] [facility] [address] [id number] [place] [address]- 2319 Jun, [facility] [place] [facility] [address] [id number] [place] [address]- 5160 May, [facility] [place] [facility] [address] [id number] [place] [address]- 5429 Apr, [facility] [address] [id number] [place] [address]- 3717 Apr, [facility] [place] [facility] [address] [id number] [place] [address]- 5773 Apr, [facility] [address] [id number] [place] [address]- 3859 Apr, [facility] [place] [facility] [address] [id number] [place] [address]- 7306 Apr, [facility] [place] [facility] [address] [id number] [place] [address]- 5635 Apr, [facility] [place] [facility] [address] [id number] [place] [address]- 0254 Mar, [facility] [place] [facility] [address] [id number] [place] [address]- 6183 Mar, [facility] [place] [facility] [address] [id number] [place] [address]- 3207 Feb, [facility] [place] [facility] [address] [id number], [place] [address] 9[address] Nov, [facility] [address] [facility] [id number], [place] [address] 67[address] Jun, [facility] [address] [facility] [id number], [place] [address]- 8535 Apr, [facility] [address] [facility] [id number], [place] [address]- 6986 Feb, [facility] [address] [facility] [id number], [place] [address]- 0119 Jan, [facility] [address] [facility] [id number] [place] [address]- 2691 Jan, [facility] [address] [facility] [id number], [place] [address]- 0[address] Jan, [facility] [address] [facility] [id number], [place] [address]- 1808 Jan, [facility] [address] [facility] [id number], [place] [address]- 2144 Nov, [facility] [address] [facility] [id number], [place] [address]- 0048 Nov, [facility] [address] [facility] [id number], [place] [address]- 3034 Mar, [facility] [address] [facility] [id number], [place] [address]- 5499 Mar, [facility] [address] [facility] [id number], [place] [address]- 7879 Feb, [facility] [address] [facility] [id number], [place] [address]- 3667 Feb, [facility] [address] [facility] [id number][place] [address] Jan, [facility] [address] [facility] [id number], [place] [address] 94[address] 10 May, 2008 IMMUNIZATIONS No Known Immunizations SOCIAL HISTORY Never Assessed REASON FOR VISIT Medication refill request PLAN OF CARE VITAL SIGNS MEDICATIONS Medication Instructions Dosage Frequency Start Date End Date Duration Status Celexa 20 mg Orally Once a day 1 tablet 24h Apr, Active RESULTS No Results PROCEDURES No Known [...]
--- OUTSIDE RECORDS SUMMARY | 2018-03-25 15:15 | XMS REPORT ---
Author MARYANA Deng [facility] eClinicalWorks Address Unknown Phone Unavailable Care Team Providers Care Bistro Attendant Name Role Phone MARYANA ROJO CP Unavailable Allergies, Adverse Reactions, Alerts Substance Reaction Event Type Latex Info Not Available Drug Allergy Problems Problem Type Condition Code Onset Dates Condition Status Problem Posttraumatic stress disorder F43.10 Active Problem Parkinsons G20 Active Problem Major depressive disorder, recurrent episode, severe F33.2 Active Problem COPD (chronic obstructive pulmonary disease) J44.9 Active Problem History of herniated intervertebral disc Z87.39 Active Problem IBS (irritable bowel syndrome) K58.9 Active Problem Anxiety F41.9 Active Problem Depression F32.9 Active Problem HTN (hypertension) I10 Active Problem Chronic pain G89.29 Active Assessment IBS (irritable bowel syndrome) K58.9 Active Assessment PTSD (post-traumatic stress disorder) F43.10 Active Assessment HTN (hypertension) I10 Active Assessment COPD (chronic obstructive pulmonary disease) J44.9 Active Assessment Anxiety F41.9 Active Problem ZOSTAVAX DX V05.8 Active Assessment Chronic pain G89.29 Active Problem PTSD (post-traumatic stress disorder) F43.10 Active Medications Medication Code System Code Instructions Start Date End Date Status Dosage Indomethacin [facility] [id number] 25 MG Orally Three times a day 1 capsule with food Clonazepam [facility] 50527582095 0.5 MG TAKE ONE TABLET BY MOUTH ONCE DAILY IN THE AFTERNOON Simvastatin [facility] [address]-83 40 MG Orally Once a day 1 tablet in the evening Bentyl [facility] [address]-54 10 MG Orally Four times a day Apr 30, 2015May 1 capsule Carbidopa-Levodopa [facility] [address]-52 10-100 mg Jun 09, 2014 1 tablet by Oral route 3 times per day Cymbalta [facility] 85567347700 60MG Orally Once a day 1 capsule Acidophilus [facility] 66971669754 100 MG Orally Once a day 1 Benefiber [facility] [address]-10 1 Orally Once a day Apr 30, 2015 as directed Neurontin [facility] [address]-34 400 MG Orally 3 times a day 1 capsule Ventolin HFA [facility] [address]-04 108 (90 Base) MCG/ACT Inhalation every 4 hrs Apr 30, 2015 2 puffs as needed Augmentin [facility] [address]-55 875-125 MG Orally every 12 hrs Apr 30, 2015 May 10, 2015 1 tablet verapamil [facility] 0 180 mg 1 ERC orally once a day July 14, 2014 1 Tablet by Oral route 1 time per day take one tablet by mouth daily Anusol-HC [facility] [address]-18 25 MG Rectal Twice a day Apr 30, 2015 May 14, 2015 1 suppository Hydrochlorothiazide [facility] [address]-78 25 MG Orally Once a day 1 tablet Procedures Procedure Coding System Code Date Office Visit, Est Pt., Level 4 CPT-4 43117 May 07, 2015 Vital Signs Date/Time: May 07, 2015 Temperature 97.1 F Weight 156.6 lbs Height 64 in BMI 26.88 Index Blood Pressure Diastolic 82 mmHg Blood Pressure Systolic 134 mmHg Cardiac Monitoring Heart Rate 92 bpm Results No Known Results Summary Purpose eClinicalWorks Submission
--- OUTSIDE RECORDS SUMMARY | 2018-03-25 15:15 | XMS REPORT ---
Author Author JOÃO MELGAR Organization [facility] Address [address] [place] [address] Care Team Providers Care Stock Room Manager Name Role Phone JOÃO MELGAR Unavailable PROBLEMS Type Condition ICD9-CM Code [id number] Code Onset Dates Condition Status SNOMED Code Problem IBS (irritable bowel syndrome) K58.9 Active 22389869 Problem Moderate episode of recurrent major depressive disorder F33.1 Active 820923719 Problem Impacted cerumen, unspecified laterality H61.20 Active 12980669 Problem Irritable bowel syndrome with diarrhea K58.0 Active 035417265 Problem ZOSTAVAX DX V05.8 Active 54192757 Problem Second degree hemorrhoids K64.1 Active 72395906 Problem Dizziness R42 Active 728087239 Problem Annular psoriasis L40.8 Active 283584325 Problem Eczema of both hands L30.9 Active 471215458 Problem Hypertriglyceridemia E78.1 Active 352536305 Problem Major depressive disorder in partial remission F32.4 Active 84068931 Problem COPD (chronic obstructive pulmonary disease) J44.9 Active 94441986 Problem PTSD (post-traumatic stress disorder) F43.10 Active 09418930 Problem Major depressive disorder, recurrent episode, severe F33.2 Active 512847014190 Problem Anxiety F41.9 Active 98432013 Problem Chronic pain G89.29 Active 52629353 Problem HTN (hypertension) I10 Active 01967461 Problem History of herniated intervertebral disc Z87.39 Active 328295459 Problem Depression F32.9 Active 74430478 Problem Parkinsons G20 Active 92359384 ALLERGIES Unknown Allergies SOCIAL HISTORY No smoking Hx information available PLAN OF CARE Activity Details Follow Up 4 Weeks Reason: Follow-up VITAL SIGNS MEDICATIONS Unknown Medications RESULTS No Results PROCEDURES Procedure Date Ordered Related Diagnosis Body Site Psychotherapy, patient &/family, 45 minutes, established patient May 12, 2016 IMMUNIZATIONS No Known Immunizations
--- OUTSIDE RECORDS SUMMARY | 2018-03-25 15:15 | XMS REPORT ---
Author Author MARYANA ROJO Organization [facility] Address [address] [place] [address] Care Team Providers Care Senior Contracts Manager Name Role Phone RANGEL ROJONETTE Unavailable PROBLEMS Type Condition ICD9-CM Code [id number] Code Onset Dates Condition Status SNOMED Code Problem IBS (irritable bowel syndrome) K58.9 Active 85061083 Problem Moderate episode of recurrent major depressive disorder F33.1 Active 780315529 Problem Impacted cerumen, unspecified laterality H61.20 Active 57287262 Problem Irritable bowel syndrome with diarrhea K58.0 Active 142021405 Problem ZOSTAVAX DX V05.8 Active 69499080 Problem Second degree hemorrhoids K64.1 Active 10272861 Problem Dizziness R42 Active 917869406 Problem Annular psoriasis L40.8 Active 574472450 Problem Eczema of both hands L30.9 Active 448802620 Problem Hypertriglyceridemia E78.1 Active 897048071 Problem Major depressive disorder in partial remission F32.4 Active 50829501 Problem COPD (chronic obstructive pulmonary disease) J44.9 Active 69354791 Problem PTSD (post-traumatic stress disorder) F43.10 Active 55760075 Problem Major depressive disorder, recurrent episode, severe F33.2 Active 905394423313 Problem Anxiety F41.9 Active 00922695 Problem Chronic pain G89.29 Active 44569254 Problem HTN (hypertension) I10 Active 68402665 Problem History of herniated intervertebral disc Z87.39 Active 647316982 Problem Depression F32.9 Active 90538217 Problem Parkinsons G20 Active 70150068 ALLERGIES No Information SOCIAL HISTORY Never Assessed PLAN OF CARE VITAL SIGNS MEDICATIONS Unknown Medications RESULTS No Results PROCEDURES No Known procedures IMMUNIZATIONS No Known Immunizations MEDICAL (GENERAL) HISTORY Type Description Date Medical History chronic obstructive pulmonary disease (COPD) Medical History hyperlipidemia Medical History herniated disc Medical History hypertension Medical History headache Medical History chronic pain Medical History Anxiety disorder Medical History depression Medical History thickening on one side of heart Medical History irritable bowel syndrome Medical History Eczema Medical History Lymphocytic colitis - diagnosed by colonoscopy Surgical History tubal ligation 1973 Surgical History carpal tunnel release Surgical History colonoscopy 02/2016 Hospitalization History surgeries
--- OUTSIDE RECORDS SUMMARY | 2018-03-25 15:16 | XMS REPORT ---
Author Author MARYANA ROJO Organization [facility] Address [address] [place] [address] Care Team Providers Care Beef Tagger Name Role Phone RANGEL ROJONETTE Unavailable PROBLEMS Type Condition ICD9-CM Code PQJ06-EV Code Onset Dates Condition Status SNOMED Code Problem IBS (irritable bowel syndrome) K58.9 Active 73702400 Problem Moderate episode of recurrent major depressive disorder F33.1 Active 099201236 Problem Impacted cerumen, unspecified laterality H61.20 Active 18493536 Problem Irritable bowel syndrome with diarrhea K58.0 Active 149866708 Problem ZOSTAVAX DX V05.8 Active 05148655 Problem Second degree hemorrhoids K64.1 Active 81780670 Problem Dizziness R42 Active 007224534 Problem Annular psoriasis L40.8 Active 955791016 Problem Eczema of both hands L30.9 Active 555886068 Problem Hypertriglyceridemia E78.1 Active 955053531 Problem Major depressive disorder in partial remission F32.4 Active 88312879 Problem COPD (chronic obstructive pulmonary disease) J44.9 Active 41676516 Problem PTSD (post-traumatic stress disorder) F43.10 Active 68045350 Problem Major depressive disorder, recurrent episode, severe F33.2 Active 723532367143 Problem Anxiety F41.9 Active 11504534 Problem Chronic pain G89.29 Active 64522415 Problem HTN (hypertension) I10 Active 54774463 Problem History of herniated intervertebral disc Z87.39 Active 137910422 Problem Depression F32.9 Active 62466392 Problem Parkinsons G20 Active 87405129 ALLERGIES No Information SOCIAL HISTORY Never Assessed [...]
--- OUTSIDE RECORDS SUMMARY | 2018-03-25 15:16 | XMS REPORT ---
Author Author NAYA JACKSON Organization [facility] Address [address] [place] [address] Care Team Providers Care Software Applications Developer Name Role Phone NAYA JACKSON Unavailable PROBLEMS Type Condition ICD9-CM Code KFT66-ML Code Onset Dates Condition Status SNOMED Code Problem Hypertriglyceridemia E78.1 Active 692820959 Problem Other chronic pain G89.29 Active 78370442 Problem Cervical disc disease M50.90 Active 763053487 Problem Major depressive disorder, single episode, mild F32.0 Active 02338033 Problem Irritable bowel syndrome with diarrhea K58.0 Active 192195764 Problem Paresthesia of bilateral legs R20.2 Active 077628824 Problem Ulcerative pancolitis without complication K51.00 Active 973769201 Problem Abnormal mammogram R92.8 Active 606857794 Problem Polyneuropathy G62.9 Active 91884194 Problem PTSD (post-traumatic stress disorder) F43.10 Active 60507498 Problem Major depressive disorder, recurrent episode, severe F33.2 Active 394655826211 Problem HTN (hypertension) I10 Active 65662519 Problem Depression F32.9 Active 44859731 Problem Parkinsons G20 Active 74480668 Problem Anxiety F41.9 Active 29507033 Problem COPD (chronic obstructive pulmonary disease) J44.9 Active 41604109 Problem Annular psoriasis L40.8 Active 839014791 ALLERGIES No Information ENCOUNTERS Encounter Location Date Diagnosis [facility] [address], [place] [address] Nov, [facility] [id number] [place] [address] 45429- 2727 Oct, Chronic diarrhea K52.9 [facility] [address], [place] [address] Oct, Chronic diarrhea K52.9 and Edema of both legs R60.0 [facility] [id number] [place] [address] 21489- 1200 Sep, Medicare annual wellness visit, initial Z00.00 ; Parkinsons G20 ; COPD (chronic obstructive pulmonary disease) J44.9 ; Major depressive disorder, single episode, mild F32.0 ; HTN (hypertension) I10 ; Hypokalemia E87.6 and Adverse effect of carbonic-anhydrase inhibitors, benzothiadiazides and other diuretics, initial encounter T50.2X5A [place] [id number] [place] [address] 19253- 4141 Sep, Localized edema R60.[address] [address]013- 1359 Sep, [place] [id number] [place] [address] 92373- 8184 Sep, Major depressive disorder, single episode, mild F32.0 ; PTSD (post-traumatic stress disorder) F43.10 and Edema of both legs R60.0 [place] [id number] [place] [address] 59554- 0112 August, Localized edema R60.0 [place] [id number] [place] [address] 11747- 5192 August, Localized edema R60.0 ; Weight gain R63.5 and Irritable bowel syndrome with diarrhea K58.0 [place] [id number] [place] [address] 19502- 8302 Jul, [place] [id number] [place] [address] 63923- 0109 Jul, Elevated liver enzymes R74.8 [place] [id number] [place] [address] 09393- 1278 Jul, Polyneuropathy G62.9 [place] [id number] [place] [address] 36176- 3366 Jul, [place] [id number] [place] [address] 88398- 5520 Jul, Cervical disc disease M50.90 [place] [id number] [place] [address] 97290- 6359 Jul, Elevated liver enzymes R74.8 [place] [id number] [place] [address] 86162- 5548 Jul, Polyneuropathy G62.9 ; Ulcerative pancolitis without complication K51.00 ; Depression F32.9 ; Leg weakness, bilateral R29.898 and Paresthesia of bilateral legs R20.2 [place] [id number] [place] [address] 24125- 8662 Jul, Polyneuropathy G62.9 ; Ulcerative pancolitis without complication K51.00 ; Depression F32.9 ; Leg weakness, bilateral R29.898 and Paresthesia of bilateral legs R20.2 [place] [id number] [place] [address] 80504- 2355 Jun, [place] [id number] [place] [address] 67969- 8316 Jun, Fibrous breast lumps N63.0 [place] [address] 72686- 9146 Jun, Ulcerative pancolitis without complication K51.00 [place] [id number] [place] [address] 33195- 2001 Jun, Abnormal mammogram R92.8 [place] [id number] [place] [address] 01082- 5578 Jun, Breast density R92.2 [place] [id number] [place] [address] 23775- 9183 Jun, [place] [address] 69695- 9645 Jun, PTSD (post-traumatic stress disorder) F43.10 [place] [id number] [place] [address] 99605- 4530 May, [place] [address] [place] [address] 43079- 0190 May, Breast cancer screening Z12.31 and Fibrous breast lumps N63.0 [place] [id number] [place] [address] 35095- 0721 Apr, Ulcerative pancolitis without complication K51.00 [place] [id number] [place] [address] 99402- 7743 Apr, [place] [id number] [place] [address] 78806- 5153 Apr, Ulcerative pancolitis without complication K51.00 ; Low back pain M54.5 and Other chronic pain G89.29 [place] [id number] [place] [address] 23536- 5395 28 Dec, 2016 Cervical disc disease M50.90 and HTN (hypertension) I10 [place] [id number] [place] [address] 39826- 1609 05 Dec, 2016 Moderate episode of recurrent major depressive disorder F33.1 and PTSD (post-traumatic stress disorder) F43.10 [place] [address] [place] [address] 18543- 2643 17 Oct, 2016 [place] [id number] [place] [address] 04965- 1706 Oct, Irritable bowel syndrome with diarrhea K58.0 [place] [id number] [place] [address] 67448- 4835 07 Oct, 2016 Irritable bowel syndrome with diarrhea K58.0 [place] [id number] [place] [address] 79249- 2245 16 Sep, 2016 Diarrhea, unspecified type R19.7 ; Chronic pain G89.29 ; Hypertriglyceridemia E78.1 ; PTSD (post-traumatic stress disorder) F43.10 ; History of herniated intervertebral disc Z87.39 and Depression F32.9 [id number] [place] [address] 52969- 7684 August, Moderate episode of recurrent major depressive disorder F33.1 and PTSD (post-traumatic stress disorder) F43.10 [place] [id number] [place] [address] 64404- 8693 August, [place] [id number] [place] [address] 65378- 6488 Jul, [place] [id number] [place] [address] 69340- 8014 Jul, PTSD (post-traumatic stress disorder) F43.10 ; IBS ( irritable bowel syndrome) K58.9 ; HTN (hypertension) I10 ; Hypertriglyceridemia E78.1 ; Chronic pain G89.29 ; Anxiety F41.9 ; Depression F32.9 ; COPD (chronic obstructive pulmonary disease) J44.9 ; Irritable bowel syndrome with diarrhea K58.0 and Second degree hemorrhoids K64.1 [place] [id number] [place] [address] 41640- 1911 Jul, PTSD (post-traumatic stress disorder) F43.10 [place] [id number] [place] [address] 05119- 8045 Jul, [place] [id number] [place] [address] 85816- 7579 Jun, [place] [id number] [place] [address] 71371- 5115 Jun, HTN (hypertension) I10 [place] [id number] [place] [address] 69066- 8395 May, Depression F32.9 ; Post traumatic stress disorder F43.10 and Screening mammogram, encounter for Z12.31 [place] [id number] [place] [address] 31663- 8592 May, [place] [id number] [place] [address] 00325- 2369 May, PTSD (post-traumatic stress disorder) F43.10 and Major depressive disorder in partial remission F32.4 [place] [address] 03760- 9692 May, PTSD (post-traumatic stress disorder) F43.10 ; IBS ( irritable bowel syndrome) K58.9 ; History of herniated intervertebral disc Z87.39 ; Anxiety F41.9 ; Depression F32.9 ; Hypertriglyceridemia E78.1 ; Eczema of both hands L30.9 ; HTN (hypertension) I10 and COPD (chronic obstructive pulmonary disease) J44.9 [place] [address] 29708- 9264 Apr, Major depressive disorder in partial remission F32.4 and PTSD (post-traumatic stress disorder) F43.[address] 12730- 4669 Apr, PTSD (post-traumatic stress disorder) F43.10 [place] [id number] [place] [address] 22201- 6688 Mar, IBS (irritable bowel syndrome) K58.9 ; PTSD (post-traumatic stress disorder) F43.10 ; COPD (chronic obstructive pulmonary disease) J44.9 ; History of herniated intervertebral disc Z87.39 ; HTN (hypertension) I10 ; Parkinsons G20 ; Annular psoriasis L40.8 and Hypertriglyceridemia E78.1 [place] [id number] [place] [address] 62837- 9470 Feb, [address] 58186- 2210 Feb, Moderate episode of recurrent major depressive disorder F33.1 and PTSD (post-traumatic stress disorder) F43.10 [place] [id number] [place] [address] 31029- 5412 Jan, Onychocryptosis L60.0 [place] [id number] [place] [address] 99840- 2981 30 Dec, 2015 [facility] [id number] [place] [address] 43890- 1683 Dec, Dizziness R42 ; PTSD (post-traumatic stress disorder) F43.10 ; Posttraumatic stress disorder F43.10 ; IBS (irritable bowel syndrome) K58.9 ; History of herniated intervertebral disc Z87.39 ; HTN (hypertension) I10 ; Chronic pain G89.29 and Hypercholesterolemia E78.0 [place] [id number] [place] [address] 19506- 4624 15 Dec, 2015 [facility] [id number] [place] [address] 98349- 1266 Dec, [facility] [id number] [place] [address] 41630 -3321 Dec, Annular psoriasis L40.8 [place] [address] 84369- 2111 Nov, [facility] [id number] [place] [address] 10368- 4130 Nov, [place] [address] 29795- 5655 Nov, HTN (hypertension) I10 ; Chronic pain G89.29 ; Annular psoriasis L40.8 ; IBS (irritable bowel syndrome) K58.9 and Vision changes H53.9 [facility] [id number] [place] [address] 77157- 4771 Oct, [place] [id number] [place] [address] 81380- 7207 Oct, IBS (irritable bowel syndrome) K58.9 ; PTSD (post-traumatic stress disorder) F43.10 ; HTN (hypertension) I10 ; Depression F32.9 ; History of herniated intervertebral disc Z87.39 ; Anxiety F41.9 ; Chronic pain G89.29 and Hypercholesterolemia E78.0 [facility] [id number] [place] [address] 24207- 0496 Oct, Major depressive disorder in partial remission F32.4 and PTSD (post-traumatic stress disorder) F43.10 [place] [id number] [place] [address] 61878- 8519 Oct, IBS (irritable bowel syndrome) K58.9 ; PTSD (post-traumatic stress disorder) F43.10 ; Major depressive disorder, recurrent episode, severe F33.2 ; Anxiety F41.9 and Impacted cerumen, unspecified laterality H61.20 [place] [address] 48267- 9734 Oct, Major depressive disorder in partial remission F32.4 ; Posttraumatic stress disorder F43.10 and Anxiety F41.9 [place] [address] 69664- 5309 Sep, [place] [address] 52188- 7570 Sep, Anxiety F41.9 ; Major depressive disorder, recurrent episode , mild F33.0 and Posttraumatic stress disorder F43.10 [place] [id number] [place] [address] 50856- 9180 Sep, [place] [address] 08812- 6361 August, [place] [id number] [place] [address] 26669- 5889 Jul, Contact dermatitis L25.9 [place] [address] 77924- 1264 Jul, Major depressive disorder, recurrent episode, severe F33.2 ; Posttraumatic stress disorder F43.10 and Anxiety F41.9 [place] [address] 79652- 1315 Jul, [place] [id number] [place] [address] 68486- 6123 Jun, IBS (irritable bowel syndrome) K58.9 ; COPD (chronic obstructive pulmonary disease) J44.9 ; HTN (hypertension) I10 ; Chronic pain G89.29 ; Anxiety F41.9 ; PTSD (post-traumatic stress disorder) F43.10 ; Parkinsons G20 and Hypercholesterolemia E78.0 [place] [address], [place] [address]- 3855 Jun, [place] [id number] [place] [address] 56986- 3238 Jun, Onychocryptosis L60.0 and Onychomycosis B35.1 [place] [id number] [place] [address] 03853- 2019 May, [place] [id number] [place] [address] 30698- 0335 May, IBS (irritable bowel syndrome) K58.9 ; COPD (chronic obstructive pulmonary disease) J44.9 ; History of herniated intervertebral disc Z87.39 ; HTN (hypertension) I10 ; Anxiety F41.9 ; Depression F32.9 and Major depressive disorder in partial remission F32.4 [place] [address] [place] [address] 16985- 6087 May, IBS (irritable bowel syndrome) K58.9 ; COPD (chronic obstructive pulmonary disease) J44.9 ; History of herniated intervertebral disc Z87.39 ; HTN (hypertension) I10 ; Anxiety F41.9 ; Depression F32.9 and Major depressive disorder in partial remission F32.4 [place] [address], [place] [address]- 7076 May, [place] [address] [place] [address] 33100- 3554 May, Anxiety F41.9 ; IBS (irritable bowel syndrome) K58.9 and Major depressive disorder in partial remission F32.4 [place] [address], [place] [address]- 9316 Apr, Encounter for screening mammogram for breast cancer Z12.31 [place] [address], [place] [address]- 4841 15 Apr, 2015 [place] [id number] [place] [address] 64313- 5710 Apr, [place] [id number] [place] [address] 12930- 1362 Apr, COPD (chronic obstructive pulmonary disease) J44.9 ; HTN ( hypertension) I10 ; Chronic pain G89.29 ; Anxiety F41.9 ; PTSD (post-traumatic stress disorder) F43.10 and IBS (irritable bowel syndrome) K58.9 [place] [id number] [place] [address] 56299- 5915 Apr, PTSD (post-traumatic stress disorder) F43.10 [place] [id number] [place] [address] 89332- 5023 Apr, Onychocryptosis L60.0 and Onychomycosis B35.1 [place] [id number] [place] [address] 58670- 1897 Apr, IBS (irritable bowel syndrome) K58.9 ; COPD (chronic obstructive pulmonary disease) J44.9 ; History of herniated intervertebral disc Z87.39 ; HTN (hypertension) I10 ; Chronic pain G89.29 ; Anxiety F41.9 ; Depression F32.9 ; Parkinsons G20 ; Hypercholesteremia E78.0 and Hemorrhoid K64.9 [place] [address] [place] [address] 25748- 7613 Mar, [place] [id number] [place] [address] 56966- 9905 Mar, Major depressive disorder, recurrent episode, severe F33.2 and Posttraumatic stress disorder F43.10 [place] [address] [place] [address] 17167- 9887 Mar, [place] [id number] [place] [address] 72330- 3807 Mar, [facility] [address], [place] [address]- 1226 Mar, PTSD (post-traumatic stress disorder) F43.10 [facility] [id number] [facility] [place] [address] 2546 Mar, Onychomycosis B35.1 and Hypertension, benign I10 [facility] [id number] [place], [place] [address] 2546 Mar, Onychomycosis B35.1 and Hypertension, benign I10 [facility] [id number] [place]- 4606 Feb, PTSD (post-traumatic stress disorder) F43.10 [place] [id number] [place] [address] 26887- 0336 Feb, [facility] [id number] [place] [address] 80181- 5989 Feb, Major depressive disorder, recurrent episode, severe F33.2 and Posttraumatic stress disorder F43.10 [place] [id number] [place] [address] 78943- 3519 Jan, PTSD (post-traumatic stress disorder) F43.10 [facility] [address] [place] [address] 98507- 1056 Jan, Rash R21 [facility] [id number] [place] [address] 2546 Jan, PTSD (post-traumatic stress disorder) F43.10 [facility] [address] [place] [address] 64679 2546 Jan, [facility] [id number] [place] [address] 94974 2546 Dec, Neuropathy 355.9 [facility] [id number] [place] [address] 55057 2546 Dec, PTSD (post-traumatic stress disorder) F43.10 [facility] [address], [place] [address]- 5414 29 Dec, 2014 MDD (major depressive disorder), recurrent episode, severe 296.33 and PTSD (post-traumatic stress disorder) 309.81 [facility] [address], [place] [address]- 6568 Dec, [facility] [id number] [place] [address] 94237- 5760 Dec, Ingrown toenail 703.0 [facility] [id number] [place] [address] 70416- 9228 Dec, Posttraumatic stress disorder 309.81 [facility] [id number] [place] [address] 77081- 2316 Nov, Depressive disorder, not elsewhere classified 311 and Anxiety state, unspecified 300.00 [facility] [id number] [place] [address] 91722- 9428 Oct, Depressive disorder, not elsewhere classified 311 and Anxiety state, unspecified 300.00 [facility] [id number] [place] [address] 91549- 1287 Oct, Depressive disorder, not elsewhere classified 311 ; Anxiety state, unspecified 300.00 and No condition on [place] II V71.09 [facility] [address] [id number] Oct, Dental examination V72.2 [facility] [address] [place] [address] 06566- 6938 Oct, [facility] [id number] [place] [address] 68418- 2545 August, [facility] [id number] [place] [address] 59999- 3661 August, Seizure 780.39 and IBS (irritable bowel syndrome) 564.1 [facility] [id number] [place] [address] 76990- 5646 14 Jul, 2014 [facility] [place] [facility] [address] [id number] [place] [address]- 4137 Jul, [facility] [place] [facility] [address] [id number] [place] [address]- 3006 25 Jun, 2014 [facility] [place] [facility] [address] [id number] [place] [address]- 9925 25 Jun, 2014 [facility] [place] [facility] [address] [id number] [place] [address]- 5122 20 Jun, 2014 [facility] [place] [facility] [address] [id number] [place] [address]- 3229 20 Jun, 2014 [facility] [place] [facility] [address] [id number] [place] [address]- 0864 20 Jun, 2014 [facility] [place] [facility] [address] [id number] [place] [address]- 1165 Jun, [facility] [place] [facility] [address] [id number] [place] [address]- 2297 20 Jun, 2014 [facility] [place] [facility] [address] [id number] [place] [address]- 1779 20 Jun, 2014 [facility] [place] [facility] [address] [id number] [place] [address]- 8353 20 Jun, 2014 [facility] [place] [facility] [address] [id number] [place] [address]- 2000 20 Jun, 2014 [facility] [place] [facility] [address] [id number] [place] [address]- 7382 2014 [facility] [place] [facility] [address] [id number] [place] [address]- 7940 Jun, [facility] [place] [facility] [address] [id number] [place] [address]- 0320 13 May, 2014 [facility] [place] [facility] [address] [id number] [place] [address]- 6624 13 May, 2014 [facility] [place] [facility] [address] [id number] [place] [address]- 7597 Apr, [facility] [address] [id number] [place] [address]- 3668 Apr, [facility] [address] [id number] [place] [address]- 6080 Mar, [facility] [address] [id number] [place] 7507 Mar, [facility] [address] [id number] [place] [address]- 5457 Mar, [facility] [address] [id number] [place] [address]- 6622 Mar, [facility] [address] [id number] [place] [address]- 1830 Mar, [facility] [address] [id number] [place] [address]- 9418 Mar, [facility] [address] [id number] [place] [address]- 9863 Mar, [facility] [place] [facility] [address] [id number] [place] [address]- 7831 Mar, [facility] [address] [id number] [place] [address]- 3654 Mar, [facility] [place] [facility] [address] [id number] [place] [address] Mar, [facility] [place] [facility] [address] [id number] [place] [address] Mar, [facility] [place] [facility] [address] [id number] [place] [address] Mar, [facility] [place] [facility] [address] [id number] [place] [address] Mar, [facility] [place] [facility] [address] [id number] [place] [address] Mar, [facility] [place] [facility] [address] [id number] [place] [address] Mar, [facility] [place] [facility] [address] [id number] [place] [address] Mar, [facility] [place] [facility] [address] [id number] [place] [address] Mar, [facility] [place] [facility] [address] [id number] [place] [address] Mar, [facility] [place] [facility] [address] [id number] [place] [address] Mar, [facility] [place] [facility] [address] [id number] [place] [address] Feb, [facility] [place] [facility] [address] [id number] [place] [address] Feb, [facility] [place] [facility] [address] [id number] [place] [address] Feb, [facility] [place] [facility] [address] [id number] [place] [address] Feb, [facility] [place] [facility] [address] [id number] [place] [address] Feb, [facility] [place] [facility] [address] [id number] [place] [address] 17 Feb, 2014 [facility] [place] [facility] [address] [id number] [address] 14 Feb, 2014 [facility] [place] [facility] [address] [id number] [place] [address] 14 Feb, 2014 [facility] [place] [facility] [address] [id number] [place] [address] 15 Jan, 2014 [facility] [place] [facility] [address] [id number] [place] [address] 15 Jan, 2014 [facility] [place] [facility] [address] [id number] [place] [address] Nov, [facility] [place] [facility] [address] [id number] [place] [address] Nov, [facility] [place] [facility] [address] [id number] [place] [address] Oct, [facility] [place] [facility] [address] [id number] [place] [address] Oct, [facility] [place] [facility] [address] [id number] [place] [address] Oct, [facility] [place] [facility] [address] [id number] [place] [address] Oct, [facility] [place] [facility] [address] [id number] [place] [address] 7[address] Oct, [facility] [place] [facility] [address] [id number] [place] [address] Sep, [facility] [place] [facility] [address] [id number] [place] [address] 8099 Sep, [facility] [place] [facility] [address] [id number] [place] [address] August, [facility] [place] [facility] [address] [id number] [place] [address] 8[address] August, [facility] [place] [facility] [address] [id number] [place] [address] 5[address] Jun, [facility] [place] [facility] [address] [id number] [place] [address] 24 Jun, 2013 [facility] [place] [facility] [address] [id number] [place] [address]73 Jun, [facility] [place] [facility] [address] [id number] [place] [address] 4594 Jun, [facility] [place] [facility] [address] [id number] [place] [address] 4299 Jun, [facility] [place] [facility] [address] [id number] [place] [address] 9690 10 Jun, 2013 [facility] [place] [facility] [address] [id number] [place] [address] 07 Jun, 2013 [facility] [place] [facility] [address] [id number] [place] [address] 480[address] Jun, [facility] [place] [facility] [address] [id number] [place] [address] 5318 Jun, [facility] [place] [facility] [address] [id number] [place] [address] 56[address] Jun, [facility] [place] [facility] [address] [id number] [place] [address] 96[address] Jun, [facility] [place] [facility] [address] [id number] [place] [address] 7060 Jun, [facility] [place] [facility] [address] [id number] [place] [address] 0[address] Jun, [facility] [place] [facility] [address] [id number] [place] [address]- [address] Jun, [facility] [place] [facility] [address] [id number] [place] [address] 2113 May, [facility] [place] [facility] [address] [id number] [place] [address] 4[address] May, [facility] [place] [facility] [address] [id number] [place] [address]- 5163 Apr, [facility] [place] [facility] [address] [id number] [place] [address] 8602 Apr, [facility] [place] [facility] [address] [id number] [place] [address] 54[address] Mar, [facility] [place] [facility] [address] [id number] [place] [address] 4045 Mar, [facility] [place] [facility] [address] [id number], [place] [address] Feb, [facility] [place] [facility] [address] [id number] [place] [address] 8565 Feb, [facility] [place] [facility] [address] [id number] [place] [address] 4556 Feb, [facility] [place] [facility] [address] [id number] [place] [address] 5986 Feb, [facility] [place] [facility] [address] [id number], [place] [address] 9[address] Feb, [facility] [place] [facility] [address] [id number] [place] [address] 4531 Feb, [facility] [place] [facility] [address] [id number] [place] [address] 2140 Feb, [facility] [place] [facility] [address] [id number] [place] [address] 2892 Jan, [facility] [place] [facility] [address] [id number][place] [address] Jan, [facility] [place] [facility] [address] [id number], [place] [address] Dec, [facility] [place] [facility] [address] [id number] [place] [address] 3968 Dec, [facility] [place] [facility] [address] [id number], [place] [address] Nov, [facility] [place] [facility] [address] [id number], [place] [address] Nov, [facility] [place] [facility] [address] [id number] [place] [address] 5158 Oct, [facility] [place] [facility] [address] [id number], [place] [address] 33[address] Sep, [facility] [place] [facility] [address] [id number] [place] [address] 8865 Sep, [facility] [place] [facility] [address] [id number] [place] [address] 2546 August, [facility] [address] [id number] [place] [address] 7159 August, [facility] [place] [facility] [address] [id number] [place] [address] 2546 August, [facility] [address] [id number] [place] [address] 1704 Jul, [facility] [place] [facility] [address] [id number] [place] [address]- 2246 May, [facility] [address] [id number] [place] [address]- 8434 May, [facility] [address] [id number] [place] [address]- 2316 Apr, [facility] [address] [id number] [place] [address] 8062 Apr, [facility] [address] [id number] [place] [address]- 8564 Feb, [facility] [address] [id number] [place] [address]- 7454 Feb, [facility] [address] [id number] [place] [address]- 5694 Jan, [facility] [place] [facility] [address] [id number] [place] [address]- 5977 Jan, [facility] [place] [facility] [address] [id number] [place] [address]- 0745 Jan, [facility] [place] [facility] [address] [id number] [place] [address]- 6694 Nov, [facility] [place] [facility] [address] [id number] [place] [address]- 2546 Nov, [facility] [place] [facility] [address] [id number] [place] [address]- 7206 Nov, [facility] [place] [facility] [address] [id number] [place] [address]- 4516 Nov, [facility] [place] [facility] [address] [id number] [place] [address]- 0841 Nov, [facility] [place] [facility] [address] [id number] [place] [address]- 0942 Oct, [facility] [place] [facility] [address] [id number] [place] [address]- 5513 Oct, [facility] [place] [facility] [address] [id number] [place] [address]- 7624 Oct, [facility] [place] [facility] [address] [id number] [place] [address]- 2904 Oct, [facility] [place] [facility] [address] [id number] [place] [address]- 3275 Oct, [facility] [place] [facility] [address] [id number] [place] [address]- 8529 Oct, [facility] [place] [facility] [address] [id number] [place] [address]- 3815 Oct, [facility] [place] [facility] [address] [id number] [place] [address]- 8642 Sep, [facility] [place] [facility] [address] [id number] [place] [address]- 7729 Sep, [facility] [place] [facility] [address] [id number] [place] [address]- 2672 Sep, [facility] [place] [facility] [address] [id number] [place] [address]- 3411 August, [facility] [place] [facility] [address] [id number] [place] [address]- 4556 Jul, [facility] [place] [facility] [address] [id number] [place] [address]- 9716 Jul, [facility] [place] [facility] [address] [id number] [place] [address]- 1707 27 Jul, 2011 [facility] [address] [id number] [place] [address]- 8836 16 Jul, 2011 [facility] [place] [facility] [address] [id number] [place] [address]- 4760 13 Jul, 2011 [facility] [place] [facility] [address] [id number] [place] [address]- 4246 Jun, [facility] [place] [facility] [address] [id number] [place] [address]- 2314 May, [facility] [place] [facility] [address] [id number] [place] [address]- 4696 Apr, [facility] [place] [facility] [address] [id number] [place] [address]- 5376 Apr, [facility] [address] [id number] [place] [address]- 1105 Apr, [facility] [place] [facility] [address] [id number] [place] [address]- 8131 Apr, [facility] [address] [id number] [place] [address]- 7581 Apr, [facility] [address] [id number] [place] [address]- 9862 Apr, [facility] [address] [id number] [place] [address]- 0709 Mar, [facility] [place] [facility] [address] [id number] [place] [address]- 2396 Mar, [facility] [place] [facility] [address] [id number] [place] [address]- 1837 Feb, [facility] [place] [facility] [address] [id number] [place] [address]- 5658 Nov, [facility] [place] [facility] [address] [id number] [place] [address]- 4556 Jun, [facility] [place] [facility] [address] [facility] [id number], [place] [address]- [address]111 Apr, [facility] [address] [address] Feb, [facility] [address] [facility] [id number], [place] [address]- 3448 Jan, [facility] [address] [facility] [id number], [place] [address]- 5532 Jan, [facility] [address] [facility] [id number], [place] [address]- 6178 Jan, [facility] [id number] [place] [address]- [address]800 Jan, [facility] [address], [place] [address]- 9470 Nov, [facility] [address], [place] [address]- 9852 Nov, [facility] [address], [place] [address]- 1045 Mar, [facility] [address], [place] [address]- 8946 Mar, [facility] [address], [place] [address]- 5168 Feb, [facility] [address], [place] [address]- 9165 Feb, [facility] [address] [id number], [place] [address] Jan, [facility] [address], [place] [address] 10 May, 2008 IMMUNIZATIONS No Known Immunizations SOCIAL HISTORY Never Assessed REASON FOR VISIT PLAN OF CARE VITAL SIGNS MEDICATIONS Unknown [...]
--- OUTSIDE RECORDS SUMMARY | 2018-03-25 15:16 | XMS REPORT ---
Author JOÃO Boone [employer] Address Unknown Phone Unavailable Care Team Providers Care Hat Sprayer Name Role Phone JOÃO MELGAR Unavailable Allergies No Known Allergies Problems Problem Type Condition Code Onset Dates Condition Status Problem Screening for malignant neoplasm of the cervix V76.2 Active Problem Other specified counseling V65.49 Active Problem Special screening examination, human papillomavirus [HPV] V73.81 Active Problem Routine gynecological examination V72.31 Active Problem Diverticulitis of colon (without mention of hemorrhage) 562.11 Active Problem Hemoptysis, unspecified 786.30 Active Problem Acute bronchitis 466.0 Active Problem Benign paroxysmal positional vertigo 386.11 Active Problem Enlargement of lymph nodes 785.6 Active Problem Viral warts, unspecified 078.10 Active Problem Paralysis agitans 332.0 Active Problem Contact dermatitis and other eczema due to solvents 692.2 Active Problem Dizziness and giddiness 780.4 Active Problem Lumbago 724.2 Active Problem Cervicalgia 723.1 Active Problem Other abnormal glucose 790.29 Active Problem Palpitations 785.1 Active Problem Unspecified hypertrophic and atrophic condition of skin 701.9 Active Problem Urinary tract infection, site not specified 599.0 Active Problem Other chronic pain 338.29 Active Assessment PTSD (post-traumatic stress disorder) F43.10 Active Problem PTSD (post-traumatic stress disorder) F43.10 Active Problem Encounter for long-term (current) use of other medications V58.69 Active Problem ZOSTAVAX DX V05.8 Active Problem Brachial neuritis or radiculitis nos. 723.4 Active Problem Irritable bowel syndrome 564.1 Active Problem Essential and other specified forms of tremor 333.1 Active Problem Mastodynia 611.71 Active Problem Subacute dyskinesia due to drugs 333.85 Active Problem Special screening for malignant neoplasms, colon V76.51 Active Problem Candidiasis of mouth 112.0 Active Problem Nausea with vomiting 787.01 Active Problem Unspecified constipation 564.00 Active Problem Other and unspecified noninfectious gastroenteritis and colitis 558.9 Active Problem Acute sinusitis, unspecified 461.9 Active Problem Unspecified essential hypertension 401.9 Active Problem Unspecified breast screening V76.10 Active Problem Chronic airway obstruction, not elsewhere classified 496 Active Problem Actinic keratosis 702.0 Active Problem Disturbance of salivary secretion 527.7 Active Problem Other and unspecified diseases of the oral soft tissues 528.9 Active Medications No Known Medications Procedures Procedure Coding System Code Date Psychotherapy, patient &/family, 45 minutes, established patient CPT-4 59830 Jan 24, 2015 Results No Known Results Summary Purpose eClinicalWorks Submission
--- OUTSIDE RECORDS SUMMARY | 2018-03-25 15:16 | XMS REPORT ---
Author JOÃO Boone [employer] Address Unknown Phone Unavailable Care Team Providers Care Deputy Clerk Of Superior Court Name Role Phone JOÃO MELGAR CP Unavailable Allergies No Known Allergies Problems Problem Type Condition Code Onset Dates Condition Status Problem Major depressive disorder in partial remission F32.4 Active Problem Depression F32.9 Active Problem Parkinsons G20 Active Problem IBS (irritable bowel syndrome) K58.9 Active Problem COPD (chronic obstructive pulmonary disease) J44.9 Active Problem Impacted cerumen, unspecified laterality H61.20 Active Problem Chronic pain G89.29 Active Problem Anxiety F41.9 Active Problem History of herniated intervertebral disc Z87.39 Active Problem HTN (hypertension) I10 Active Problem ZOSTAVAX DX V05.8 Active Problem PTSD (post-traumatic stress disorder) F43.10 Active Assessment PTSD (post-traumatic stress disorder) F43.10 Active Problem Posttraumatic stress disorder F43.10 Active Assessment Major depressive disorder in partial remission F32.4 Active Problem Major depressive disorder, recurrent episode, severe F33.2 Active Medications No Known Medications Procedures Procedure Coding System Code Date Psychotherapy, patient &/family, 30 minutes, established patient CPT-4 24524 November 07, 2015 Results No Known Results Summary Purpose eClinicalWorks Submission
--- OUTSIDE RECORDS SUMMARY | 2018-03-25 15:16 | XMS REPORT ---
Author NAYA Escalera [facility] e[employer] Address Unknown Phone Unavailable Care Team Providers Care Sawyer Cork [employer]abs Name Role Phone NAYA JACKSON CP Unavailable Allergies No Known Allergies Problems Problem Type Condition Code Onset Dates Condition Status Problem Diverticulitis of colon (without mention of hemorrhage) 562.11 Active Problem Special screening examination, human papillomavirus [HPV] V73.81 Active Problem Acute bronchitis 466.0 Active Problem Hemoptysis, unspecified 786.30 Active Problem Benign paroxysmal positional vertigo 386.11 Active Problem Enlargement of lymph nodes 785.6 Active Problem Paralysis agitans 332.0 Active Problem Dizziness and giddiness 780.4 Active Problem Encounter for long-term (current) use of other medications V58.69 Active Problem Other abnormal glucose 790.29 Active Problem Other chronic pain 338.29 Active Problem Cervicalgia 723.1 Active Problem Urinary tract infection, site not specified 599.0 Active Problem Brachial neuritis or radiculitis nos. 723.4 Active Problem Essential and other specified forms of tremor 333.1 Active Problem ZOSTAVAX DX V05.8 Active Problem Major depressive disorder, recurrent episode, severe F33.2 Active Problem Posttraumatic stress disorder F43.10 Active Problem Subacute dyskinesia due to drugs 333.85 Active Problem Acute sinusitis, unspecified 461.9 Active Problem Nausea with vomiting 787.01 Active Problem Hypertension, benign I10 Active Problem Unspecified constipation 564.00 Active Problem Chronic airway obstruction, not elsewhere classified 496 Active Problem Unspecified hypertrophic and atrophic condition of skin 701.9 Active Problem Unspecified essential hypertension 401.9 Active Problem Irritable bowel syndrome 564.1 Active Problem PTSD (post-traumatic stress disorder) F43.10 Active Problem Palpitations 785.1 Active Problem Screening for malignant neoplasm of the cervix V76.2 Active Problem Other and unspecified diseases of the oral soft tissues 528.9 Active Problem Routine gynecological examination V72.31 Active Problem Unspecified breast screening V76.10 Active Problem Special screening for malignant neoplasms, colon V76.51 Active Problem Candidiasis of mouth 112.0 Active Problem Other specified counseling V65.49 Active Problem Disturbance of salivary secretion 527.7 Active Problem Other and unspecified noninfectious gastroenteritis and colitis 558.9 Active Problem Contact dermatitis and other eczema due to solvents 692.2 Active Problem Mastodynia 611.71 Active Problem Lumbago 724.2 Active Problem Actinic keratosis 702.0 Active Problem Viral warts, unspecified 078.10 Active Medications Medication Code System Code Instructions Start Date End Date Status Dosage Hyoscyamine Sulfate CR [facility] [id number] 0.375 MG Orally every 12 hrs 1 tablet Hydrochlorothiazide [facility] [address]-47 25 MG Orally Once a day 1 tablet Simvastatin [facility] [address]-71 40 MG Orally Once a day 1 tablet in the evening Results No Known Results Summary Purpose eClinicalWorks Submission
--- OUTSIDE RECORDS SUMMARY | 2018-03-25 15:17 | XMS REPORT ---
Author Author MILLER FLORES Organization [facility] Address [address] [place] [address] Care Team Providers Care Auto Glass Technician Name Role Phone MILLER FLORES Unavailable PROBLEMS Type Condition ICD9-CM Code NPZ65-DI Code Onset Dates Condition Status SNOMED Code Problem Major depressive disorder, recurrent episode, severe F33.2 Active 249722023401 Problem HTN (hypertension) I10 Active 99235772 Problem COPD (chronic obstructive pulmonary disease) J44.9 Active 00788904 Problem PTSD (post-traumatic stress disorder) F43.10 Active 02227205 Problem Cervical disc disease M50.90 Active 168497471 Problem Hypertriglyceridemia E78.1 Active 296570839 Problem Anxiety F41.9 Active 61071457 Problem Depression F32.9 Active 06464103 Problem Annular psoriasis L40.8 Active 383538116 Problem Parkinsons G20 Active 67050550 ALLERGIES Substance Reaction Event Type Date Status Latex Unknown Drug Allergy August, Active SOCIAL HISTORY Never Assessed PLAN OF CARE Activity Details Follow Up 4 Months Reason: VITAL SIGNS Height 64 in 2016-09-02 Weight 152.5 lbs 2016-09-02 Heart Rate 76 bpm 2016-09-02 Respiratory Rate 18 2016-09-02 BMI 26.17 kg/m2 2016-09-02 Blood pressure systolic 130 mmHg 2016-09-02 Blood pressure diastolic 75 mmHg 2016-09-02 MEDICATIONS Medication Instructions Dosage Frequency Start Date End Date Duration Status Hydrochlorothiazide 12.5 MG Orally Once a day 1 tablet in the morning 24h Active Bentyl 10 mg Orally Four times a day 1 capsule 6h Active Zocor 20 MG Orally Once a day 1 tablet in the evening 24h Active HydrOXYzine Pamoate 25 MG Orally at bedtime as needed for anxiety and sleep 1 or 2 capsule as needed August, Active Gabapentin 400MG TAKE ONE CAPSULE BY MOUTH THREE TIMES DAILY 30 Active Celexa 20 mg Orally Once a day 1 tablet 24h Apr, Active Verapamil HCl CR 180 MG orally once daily TAKE ONE TABLET BY MOUTH ONCE DAILY 24h Active Indomethacin 25 MG Orally Three times a day 1 capsule with food 8h Active Neurontin 400 MG Orally 3 times a day 1 capsule 8h Active Sulfasalazine 500 MG Orally 2 times a day 3 tablets 12h Active Viberzi 100 mg Orally Twice a day 1 tablet with food 12h 17 Jul, 2016 Active Anusol-HC 2.5 % Rectal Twice a day 1 application to affected area 12h Jul, Oct, 30 day(s) Active RESULTS No Results PROCEDURES Procedure Date Ordered Result Body Site [facility] VISIT ESTABLISHED PATIENT September 02, 2016 IMMUNIZATIONS No Known Immunizations MEDICAL (GENERAL) HISTORY [...]
--- OUTSIDE RECORDS SUMMARY | 2018-03-25 15:17 | XMS REPORT ---
Author Author MARCIN MONTANO [facility] Address [address] [place] [address] Care Team Providers Care Manager Service Desk Name Role Phone MARCIN MONTANO Unavailable PROBLEMS Type Condition ICD9-CM Code CCJ62-SO Code Onset Dates Condition Status SNOMED Code Problem Depression F32.9 Active 07957516 Problem Parkinsons G20 Active 89981655 Problem Anxiety F41.9 Active 84617229 Problem PTSD (post-traumatic stress disorder) F43.10 Active 60259165 Problem Major depressive disorder, recurrent episode, severe F33.2 Active 967413227584 Problem COPD (chronic obstructive pulmonary disease) J44.9 Active 83569349 Problem HTN (hypertension) I10 Active 37769541 Problem Abnormal mammogram R92.8 Active 719142674 Problem Other chronic pain G89.29 Active 99531971 Problem Hypertriglyceridemia E78.1 Active 395365894 Problem Annular psoriasis L40.8 Active 348422350 Problem Ulcerative pancolitis without complication K51.00 Active 722257700 Problem Cervical disc disease M50.90 Active 910364898 ALLERGIES No Information ENCOUNTERS Encounter Location Date Diagnosis [facility] [address] [address] Jul, [facility] [id number] [place] [address] 89430- 8638 Jun, [facility] [id number] [place] [address] 55616- 1759 Jun, Fibrous breast lumps N63.0 [facility] [id number] [place] [address] 77851- 2119 Jun, Ulcerative pancolitis without complication K51.00 [place] [id number] [place] [address] 65275- 3821 Jun, Abnormal mammogram R92.8 [place] [id number] [place] [address] 60087- 6322 Jun, Breast density R92.2 [place] [id number] [place] [address] 25723- 4661 Jun, [place] [id number] [place] [address] 41849- 6670 Jun, PTSD (post-traumatic stress disorder) F43.10 [place] [id number] [place] [address] 83114- 7757 May, [place] [address] 68137- 0111 May, Breast cancer screening Z12.31 and Fibrous breast lumps N63.0 [place] [id number] [place] [address] 35729- 0455 Apr, Ulcerative pancolitis without complication K51.00 [place] [id number] [place] [address] 39938- 7037 Apr, [place] [id number] [place] [address] 95465- 6014 Apr, Ulcerative pancolitis without complication K51.00 ; Low back pain M54.5 and Other chronic pain G89.29 [place] [id number] [place] [address] 88325- 6321 Dec, Cervical disc disease M50.90 and HTN (hypertension) I10 [place] [id number] [place] [address] 20841- 7878 05 Dec, 2016 Moderate episode of recurrent major depressive disorder F33.1 and PTSD (post-traumatic stress disorder) F43.10 [place] [address] [place] [address] 59307- 6025 Oct, [place] [id number] [place] [address] 24866- 8363 Oct, Irritable bowel syndrome with diarrhea K58.0 [facility] [address] [address]- 5556 Oct, Irritable bowel syndrome with diarrhea K58.0 [facility] [id number] [place] [address] 12489- 5202 16 Sep, 2016 Diarrhea, unspecified type R19.7 ; Chronic pain G89.29 ; Hypertriglyceridemia E78.1 ; PTSD (post-traumatic stress disorder) F43.10 ; History of herniated intervertebral disc Z87.39 and Depression F32.9 [place] [id number] [place] [address] 81863- 0668 August, Moderate episode of recurrent major depressive disorder F33.1 and PTSD (post-traumatic stress disorder) F43.10 [place] [id number] [place] [address] 20281- 5903 August, [place] [id number] [place] [address] 14630- 2240 Jul, [place] [id number] [place] [address] 27778- 9795 Jul, PTSD (post-traumatic stress disorder) F43.10 ; IBS ( irritable bowel syndrome) K58.9 ; HTN (hypertension) I10 ; Hypertriglyceridemia E78.1 ; Chronic pain G89.29 ; Anxiety F41.9 ; Depression F32.9 ; COPD (chronic obstructive pulmonary disease) J44.9 ; Irritable bowel syndrome with diarrhea K58.0 and Second degree hemorrhoids K64.1 [place] [address] [address] 7603 Jul, PTSD (post-traumatic stress disorder) F43.10 [place] [id number] [place] [address] 60146- 3709 Jul, [place] [id number] [place] [address] 66446- 0920 Jun, [place] [id number] [place] [address] 05631- 6982 Jun, HTN (hypertension) I10 [place] [id number] [place] [address] 50941- 6433 May, Depression F32.9 ; Post traumatic stress disorder F43.10 and Screening mammogram, encounter for Z12.31 [place] [id number] [place] [address] 90665- 0990 May, [place] [id number] [place] [address] 36528- 2343 May, PTSD (post-traumatic stress disorder) F43.10 and Major depressive disorder in partial remission F32.4 [place] [id number] [place] [address] 31677- 8490 May, PTSD (post-traumatic stress disorder) F43.10 ; IBS ( irritable bowel syndrome) K58.9 ; History of herniated intervertebral disc Z87.39 ; Anxiety F41.9 ; Depression F32.9 ; Hypertriglyceridemia E78.1 ; Eczema of both hands L30.9 ; HTN (hypertension) I10 and COPD (chronic obstructive pulmonary disease) J44.9 [place] [id number] [place] [address] 41840- 6664 Apr, Major depressive disorder in partial remission F32.4 and PTSD (post-traumatic stress disorder) F43.10 [place] [address] [address]- 9911 Apr, PTSD (post-traumatic stress disorder) F43.10 [place] [address] [place] [address] 43484- 8881 Mar, IBS (irritable bowel syndrome) K58.9 ; PTSD (post-traumatic stress disorder) F43.10 ; COPD (chronic obstructive pulmonary disease) J44.9 ; History of herniated intervertebral disc Z87.39 ; HTN (hypertension) I10 ; Parkinsons G20 ; Annular psoriasis L40.8 and Hypertriglyceridemia E78.1 [place] [id number] [place] [address]- 1557 Feb, [facility] [address] 34337- 7514 Feb, Moderate episode of recurrent major depressive disorder F33.1 and PTSD (post-traumatic stress disorder) F43.10 [place] [address] 67407- 6487 Jan, Onychocryptosis L60.0 [facility] [address] 72476- 1361 Dec, [place] [address] 43804- 3934 Dec, Dizziness R42 ; PTSD (post-traumatic stress disorder) F43.10 ; Posttraumatic stress disorder F43.10 ; IBS (irritable bowel syndrome) K58.9 ; History of herniated intervertebral disc Z87.39 ; HTN (hypertension) I10 ; Chronic pain G89.29 and Hypercholesterolemia E78.0 [place] [address] 89257- 4407 Dec, [place] [address] 91345- 1448 Dec, [facility] [address] 05376 -9583 Dec, Annular psoriasis L40.8 [facility] [id number] [place] [address] 48490- 2751 Nov, [facility] [address] 87728- 8238 Nov, [place] [address] 88951- 0567 Nov, HTN (hypertension) I10 ; Chronic pain G89.29 ; Annular psoriasis L40.8 ; IBS (irritable bowel syndrome) K58.9 and Vision changes H53.9 [facility] [address] [place] [address]- 3010 Oct, [place] [id number] [place] [address] 67589- 4773 Oct, IBS (irritable bowel syndrome) K58.9 ; PTSD (post-traumatic stress disorder) F43.10 ; HTN (hypertension) I10 ; Depression F32.9 ; History of herniated intervertebral disc Z87.39 ; Anxiety F41.9 ; Chronic pain G89.29 and Hypercholesterolemia E78.0 [place] [address] 06972- 6848 Oct, Major depressive disorder in partial remission F32.4 and PTSD (post-traumatic stress disorder) F43.10 [place] [address] 09554- 1001 Oct, IBS (irritable bowel syndrome) K58.9 ; PTSD (post-traumatic stress disorder) F43.10 ; Major depressive disorder, recurrent episode, severe F33.2 ; Anxiety F41.9 and Impacted cerumen, unspecified laterality H61.20 [place] [id number] [place] [address] 25631- 7699 Oct, Major depressive disorder in partial remission F32.4 ; Posttraumatic stress disorder F43.10 and Anxiety F41.9 [place] [id number] [place] [address] 34240- 9304 Sep, [place] [id number] [place] [address] 11681- 1934 Sep, Anxiety F41.9 ; Major depressive disorder, recurrent episode , mild F33.0 and Posttraumatic stress disorder F43.10 [place] [id number] [place] [address] 22724- 4809 Sep, [place] [id number] [place] [address] 04085- 2223 August, [place] [id number] [place] [address] 11112- 6144 Jul, Contact dermatitis L25.9 [place] [id number] [place] [address] 63230- 2176 Jul, Major depressive disorder, recurrent episode, severe F33.2 ; Posttraumatic stress disorder F43.10 and Anxiety F41.9 [place] [id number] [place] [address] 45858- 1129 Jul, [address] 68383- 1091 Jun, IBS (irritable bowel syndrome) K58.9 ; COPD (chronic obstructive pulmonary disease) J44.9 ; HTN (hypertension) I10 ; Chronic pain G89.29 ; Anxiety F41.9 ; PTSD (post-traumatic stress disorder) F43.10 ; Parkinsons G20 and Hypercholesterolemia E78.0 [place] [id number] [place] [address] 33941- 7332 Jun, [address] 68113- 5334 Jun, Onychocryptosis L60.0 and Onychomycosis B35.1 [place] [id number] [place] [address] 50173- 9369 May, [place] [id number] [place] [address] 01236- 3686 May, IBS (irritable bowel syndrome) K58.9 ; COPD (chronic obstructive pulmonary disease) J44.9 ; History of herniated intervertebral disc Z87.39 ; HTN (hypertension) I10 ; Anxiety F41.9 ; Depression F32.9 and Major depressive disorder in partial remission F32.4 [place] [id number] [place] [address] 70047- 6395 May, IBS (irritable bowel syndrome) K58.9 ; COPD (chronic obstructive pulmonary disease) J44.9 ; History of herniated intervertebral disc Z87.39 ; HTN (hypertension) I10 ; Anxiety F41.9 ; Depression F32.9 and Major depressive disorder in partial remission F32.4 [place] [address] [address]- 2103 04 May, 2015 [place] [id number] [place] [address] 17478- 0280 04 May, 2015 Anxiety F41.9 ; IBS (irritable bowel syndrome) K58.9 and Major depressive disorder in partial remission F32.4 [place] [id number] [place] [address] 06271- 4926 18 Apr, 2015 Encounter for screening mammogram for breast cancer Z12.31 [place] [id number] [place] [address] 90241- 5288 15 Apr, 2015 [place] [id number] [place] [address] 59767- 0606 11 Apr, 2015 [place] [id number] [place] [address] 06869- 7869 Apr, COPD (chronic obstructive pulmonary disease) J44.9 ; HTN ( hypertension) I10 ; Chronic pain G89.29 ; Anxiety F41.9 ; PTSD (post-traumatic stress disorder) F43.10 and IBS (irritable bowel syndrome) K58.9 [place] [id number] [place] [address] 56286- 2001 Apr, PTSD (post-traumatic stress disorder) F43.10 [place] [id number] [place] [address] 40560- 3280 Apr, Onychocryptosis L60.0 and Onychomycosis B35.[address] [place] [address] 79802- 0102 Apr, IBS (irritable bowel syndrome) K58.9 ; COPD (chronic obstructive pulmonary disease) J44.9 ; History of herniated intervertebral disc Z87.39 ; HTN (hypertension) I10 ; Chronic pain G89.29 ; Anxiety F41.9 ; Depression F32.9 ; Parkinsons G20 ; Hypercholesteremia E78.0 and Hemorrhoid K64.9 [facility] [address] [place] [address] 68449- 6986 Mar, [facility] [id number] [place] [address] 49035- 7336 Mar, Major depressive disorder, recurrent episode, severe F33.2 and Posttraumatic stress disorder F43.10 [facility] [id number] [place] [address] 33852- 4486 Mar, [facility] [id number] [place] [address] 32910 2546 Mar, [facility] [id number] [place] [address] 30168- 4256 Mar, PTSD (post-traumatic stress disorder) F43.10 [place] [id number] [place] [address] 03294- 5936 Mar, Onychomycosis B35.1 and Hypertension, benign I10 [facility] [id number] [place] [address] 73539 2546 Mar, Onychomycosis B35.1 and Hypertension, benign I10 [place] [id number] [place] [address] 86568- 3666 Feb, PTSD (post-traumatic stress disorder) F43.10 [place] [address] [place] [address] 17648- 4086 Feb, [facility] [id number] [place] [address] 30012 2546 Feb, Major depressive disorder, recurrent episode, severe F33.2 and Posttraumatic stress disorder F43.10 [place] [id number] [place] [address] 37454- 9936 Jan, PTSD (post-traumatic stress disorder) F43.10 [place] [id number] [place] [address] 39230 2546 Jan, Rash R21 [facility] [address] [address]- 0567 Jan, PTSD (post-traumatic stress disorder) F43.10 [facility] [id number] [place] [address] 98613- 9591 Jan, [facility] [id number] [place] [address] 66184- 3628 Dec, Neuropathy 355.9 [facility] [id number] [place] [address] 78974- 6188 Dec, PTSD (post-traumatic stress disorder) F43.10 [place] [id number] [place] [address] 556328- 8944 29 Dec, 2014 MDD (major depressive disorder), recurrent episode, severe 296.33 and PTSD (post-traumatic stress disorder) 309.81 [place] [id number] [place] [address] 44090- 2920 Dec, [facility] [id number] [place] [address] 12653- 0054 Dec, Ingrown toenail 703.0 [place] [id number] [place] [address] 42125- 8777 Dec, Posttraumatic stress disorder 309.81 [place] [id number] [place] [address] 33188- 0729 Nov, Depressive disorder, not elsewhere classified 311 and Anxiety state, unspecified 300.00 [facility] [address] [place] [address] 94004- 1265 Oct, Depressive disorder, not elsewhere classified 311 and Anxiety state, unspecified 300.00 [place] [id number] [place] [address] 13753- 8884 Oct, Depressive disorder, not elsewhere classified 311 ; Anxiety state, unspecified 300.00 and No condition on Almond II V71.09 [facility] [id number] [place] [address] [id number] Oct, Dental examination V72.2 [facility] [address] [facility] [id number] [place] [address]- 6866 Oct, [facility] [address] [facility] [id number] [place] [address]- 0206 August, [facility] [address] [facility] [id number] [place] [address]- 1216 August, Seizure 780.39 and IBS (irritable bowel syndrome) 564.1 [facility] [address] [id number] [place] [address]- 9596 Jul, [facility] [address] [facility] [id number] [place] [address]- 6766 Jul, [facility] [address] [facility] [id number] [place] [address]- 1337 Jun, [facility] [id number] [place] [address]- 0532 Jun, [facility] [address] [facility] [id number] [place] [address]- 5087 Jun, [facility] [address] [facility] [id number] [place] [address]- 9766 Jun, [facility] [address] [facility] [id number] [place] [address]- 3306 Jun, [facility] [address] [facility] [id number] [place] [address]- 9046 Jun, [facility] [address] [id number] [place] [address] 2546 Jun, [facility] [address] [facility] [id number] [place] [address] 2546 Jun, [facility] [address] [facility] [id number] [place] [address] 2546 Jun, [facility] [address] [facility] [id number] [place] [address]- 0161 Jun, [facility] [place] [facility] [address] [id number] [place] [address]- 5143 Jun, [facility] [place] [facility] [address] [id number] [place] [address]- 2984 Jun, [facility] [place] [facility] [address] [id number] [place] [address]- 8953 May, [facility] [place] [facility] [address] [id number] [place] [address]- 2822 May, [facility] [place] [facility] [address] [id number] [place] [address]- 4505 Apr, [facility] [place] [facility] [address] [id number] [place] [address]- 6569 Apr, [facility] [place] [facility] [address] [id number] [place] [address]- 1778 Mar, [facility] [place] [facility] [address] [id number] [place] [address]- 1352 Mar, [facility] [place] [facility] [address] [id number] [place] [address]- 9611 Mar, [facility] [place] [facility] [address] [id number] [place] [address]- 1473 Mar, [facility] [place] [facility] [address] [id number] [place] [address]- 9343 Mar, [facility] [place] [facility] [address] [id number] [place] [address]- 6727 Mar, [facility] [place] [facility] [address] [id number] [place] [address]- 4426 Mar, [facility] [place] [facility] [address] [id number] [place] [address]- 1359 Mar, [facility] [place] [facility] [address] [id number] [place] [address]- 5007 Mar, [facility] [place] [facility] [address] [id number] [place] [address]- 9841 12 Mar, 2014 [facility] [place] [facility] [address] [id number] [place] [address]- 3496 Mar, [facility] [place] [facility] [address] [id number] [place] [address]- 9006 Mar, [facility] [place] [facility] [address] [id number] [place] 7738 Mar, [facility] [place] [facility] [address] [id number] [place] [address]- 5869 Mar, [facility] [place] [facility] [address] [id number] [place] [address]- 0600 Mar, [facility] [place] [facility] [address] [id number] [place] [address]- 5179 Mar, [facility] [place] [facility] [address] [id number] [place] [address]- 1816 Mar, [facility] [place] [facility] [address] [id number] [place] [address]- 0402 Mar, [facility] [place] [facility] [address] [id number] [place] [address]- 7123 Mar, [facility] [place] [facility] [address] [facility] [id number] [place] [address]- 0651 Feb, [facility] [place] [facility] [address] [id number] [place] [address]- 3241 Feb, [facility] [place] [facility] [address] [id number] [place] [address]- 9635 Feb, [facility] [place] [facility] [address] [id number] [place] [address]- 8025 Feb, [facility] [place] [facility] [address] [id number] [place] [address]- 6420 Feb, [facility] [place] [facility] [address] [id number] [place] [address]- 2248 Feb, [facility] [place] [facility] [address] [id number] [place] [address]- 0089 Feb, [facility] [place] [facility] [address] [id number] [place] [address]- 5638 Feb, [facility] [place] [facility] [address] [id number] [place] [address]- 3827 Jan, [facility] [place] [facility] [address] [id number] [place] [address]- 0103 Jan, [facility] [place] [facility] [address] [id number] [place] [address]- 9242 Nov, [facility] [place] [facility] [address] [id number] [place] [address]- 2862 Nov, [facility] [place] [facility] [address] [id number] [place] [address]- 2937 Oct, [facility] [place] [facility] [address] [id number] [place] [address]- 0728 Oct, [facility] [place] [facility] [address] [id number] [place] [address]- 3773 Oct, [facility] [place] [facility] [address] [id number] [place] [address]- 4091 Oct, [facility] [place] [facility] [address] [id number] [place] [address]- 3307 Oct, [facility] [place] [facility] [address] [id number] [place] [address]- 3215 Sep, [facility] [place] [facility] [address] [id number] [place] [address] Sep, [facility] [place] [facility] [address] [id number] [place] [address] August, [facility] [place] [facility] [address] [id number] [place] [address] August, [facility] [place] [facility] [address] [id number] [place] [address] 24 Jun, 2013 [facility] [place] [facility] [address] [id number] [place] [address] 24 Jun, 2013 [facility] [place] [facility] [address] [id number] [place] [address] Jun, [facility] [place] [facility] [address] [id number] [place] [address] Jun, [facility] [place] [facility] [address] [id number] [place] [address] Jun, [facility] [place] [facility] [address] [id number] [place] [address] Jun, [facility] [place] [facility] [address] [id number] [place] [address] Jun, [facility] [place] [facility] [address] [id number] [place] [address] Jun, [facility] [place] [facility] [address] [id number] [place] [address] Jun, [facility] [place] [facility] [address] [id number] [place] [address] Jun, [facility] [place] [facility] [address] [id number] [place] [address] Jun, [facility] [place] [facility] [address] [id number] [place] [address] Jun, [facility] [place] [facility] [address] [id number] [place] [address] Jun, [facility] [place] [facility] [address] [id number] [place] [address] Jun, [facility] [place] [facility] [address] [id number] [place] [address] May, [facility] [place] [facility] [address] [id number] [place] [address] May, [facility] [place] [facility] [address] [id number] [place] [address] Apr, [facility] [address] [id number] [place] [address] Apr, [facility] [place] [facility] [address] [id number] [place] [address] Mar, [facility] [place] [facility] [address] [id number] [place] [address] Mar, [facility] [place] [facility] [address] [id number] [place] [address] Feb, [facility] [place] [facility] [address] [address] [id number] [place] [address] Feb, [facility] [place] [facility] [address] [id number] [place] [address] Feb, [facility] [place] [facility] [address] [id number] [place] [address] Feb, [facility] [place] [facility] [address] [id number] [place] [address] Feb, [facility] [place] [facility] [address] [id number] [place] [address] Feb, [facility] [place] [facility] [address] [id number] [place] [address] Feb, [facility] [place] [facility] [address] [id number] [place] [address] Jan, [facility] [place] [facility] [address] [id number] [place] [address] Jan, [facility] [place] [facility] [address] [id number] [place] [address] Dec, [facility] [place] [facility] [address] [id number] [place] [address] Dec, [facility] [place] [facility] [address] [id number] [place] [address] Nov, [facility] [address] [id number] [place] [address] Nov, [facility] [place] [facility] [address] [id number] [place] [address] Oct, [facility] [place] [facility] [address] [id number] [place] [address] Sep, [facility] [place] [facility] [address] [id number] [place] [address] Sep, [facility] [place] [facility] [address] [id number] [place] [address] August, [facility] [place] [facility] [address] [id number] [place] [address] August, [facility] [place] [facility] [address] [id number] [place] [address] 58[address] August, [facility] [place] [facility] [address] [id number] [place] [address] Jul, [facility] [place] [facility] [address] [id number] [place] [address] 30[address] May, [facility] [place] [facility] [address] [id number] [place] [address] May, [facility] [place] [facility] [address] [id number], [place] [address] Apr, [facility] [place] [facility] [address] [id number], [place] [address] Apr, [facility] [place] [facility] [address] [id number] [place] [address] Feb, [facility] [place] [facility] [address] [id number] [place] [address] 1746 Feb, [facility] [place] [facility] [address] [id number] [place] [address]69 Jan, [facility] [place] [facility] [address] [id number] [place] [address] Jan, [facility] [place] [facility] [address] [id number] [place] [address] 28[address] Jan, [facility] [place] [facility] [address] [id number] [place] [address] Nov, [facility] [place] [facility] [address] [id number] [place] [address]676 Nov, [facility] [place] [facility] [address] [id number] [place] [address] Nov, [facility] [place] [facility] [address] [id number] [place] [address] 7810 Nov, [facility] [place] [facility] [address] [id number] [place] [address]24 Nov, [facility] [place] [facility] [address] [id number] [place] [address] Oct, [facility] [place] [facility] [address] [id number] [place] [address] Oct, [facility] [place] [facility] [address] [id number] [place] [address] Oct, [facility] [place] [facility] [address] [id number] [place] [address] Oct, [facility] [place] [facility] [address] [id number] [place] [address] 1634 Oct, [facility] [place] [facility] [address] [id number] [place] [address] 8[address] Oct, [facility] [place] [facility] [address] [id number] [place] [address] Oct, [facility] [place] [facility] [address] [id number] [place] [address]89 Sep, [facility] [place] [facility] [address] [id number] [place] [address] Sep, [facility] [place] [facility] [address] [id number] [place] [address] Sep, [facility] [address] [id number] [place] [address] August, [facility] [address] [id number] [place] [address] Jul, [facility] [address] [id number] [place] [address] Jul, [facility] [address] [id number] [place] [address] Jul, [facility] [address] [id number] [place] [address] Jul, [facility] [address] [id number] [place] [address] Jul, [facility] [address] [id number] [place] [address] Jun, [facility] [address] [id number] [place] [address] May, [facility] [address] [id number] [place] [address]141 Apr, [facility] [address] [id number] [place] [address] 9168 Apr, [facility] [address] [id number] [place] [address] 2531 Apr, [facility] [place] [facility] [address] [id number] [place] [address]- 8786 Apr, [facility] [place] [facility] [address] [id number] [place] [address]758 Apr, [facility] [place] [facility] [address] [id number] [place] [address] 2036 Apr, [facility] [address] [id number] [place] [address] 1227 Mar, [facility] [place] [facility] [address] [id number] [place] [address] 6[address] Mar, [facility] [place] [facility] [address] [id number] [place] [address] Feb, [facility] [place] [facility] [address] [id number] [place] [address] 9225 Nov, [facility] [place] [facility] [address] [id number] [place] [address] 8788 Jun, [facility] [place] [facility] [address] [id number] [place] [address] Apr, [facility] [place] [facility] [address] [id number] [place] [address] Feb, [facility] [place] [facility] [address] [id number] [place] [address] Jan, [facility] [place] [facility] [address] [id number] [place] [address] 6777 Jan, [facility] [place] [facility] [address] [id number] [place] [address] 0391 Jan, [facility] [place] [facility] [address] [id number] [place] [address]- 8720 Jan, [facility] [place] [facility] [address] [id number] [place] [address]- 9470 Nov, [facility] [place] [facility] [address] [id number] [place] [address] Nov, [facility] [place] [facility] [address] [id number] [place] [address]- 6368 Mar, [facility] [place] [facility] [address] [id number] [place] [address] Mar, [facility] [place] [facility] [address] [id number] [place] [address]- 3944 Feb, [facility] [place] [facility] [address] [facility] [id number] [place] [address] Feb, [facility] [address] [facility] [id number] [place] [address]- [address] Jan, [facility] [address] [facility] [id number] [place] [address]- [address] May, IMMUNIZATIONS No Known Immunizations SOCIAL HISTORY Never Assessed REASON FOR VISIT Requests return call PLAN OF CARE VITAL SIGNS MEDICATIONS Unknown [...]
--- OUTSIDE RECORDS SUMMARY | 2018-03-25 15:18 | XMS REPORT ---
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
--- OUTSIDE RECORDS SUMMARY | 2018-03-25 15:18 | XMS REPORT ---
Author Author NAYA JACKSON Organization [facility] Address [facility] [place] [address] Care Team Providers Care Pharmacy Technician Assistant Name Role Phone NAYA JACKSON Unavailable PROBLEMS Type Condition ICD9-CM Code [id number] Code Onset Dates Condition Status SNOMED Code Problem Hypertriglyceridemia E78.1 Active 868286877 Problem Other chronic pain G89.29 Active 82127176 Problem Cervical disc disease M50.90 Active 902123126 Problem Major depressive disorder, single episode, mild F32.0 Active 60730966 Problem Irritable bowel syndrome with diarrhea K58.0 Active 400841460 Problem Paresthesia of bilateral legs R20.2 Active 067214779 Problem Ulcerative pancolitis without complication K51.00 Active 719282905 Problem Abnormal mammogram R92.8 Active 756900340 Problem Polyneuropathy G62.9 Active 07851355 Problem PTSD (post-traumatic stress disorder) F43.10 Active 80709467 Problem Major depressive disorder, recurrent episode, severe F33.2 Active 951083086154 Problem HTN (hypertension) I10 Active 32479089 Problem Depression F32.9 Active 97010654 Problem Parkinsons G20 Active 42047429 Problem Anxiety F41.9 Active 73752507 Problem COPD (chronic obstructive pulmonary disease) J44.9 Active 60232618 Problem Annular psoriasis L40.8 Active 255625532 ALLERGIES No Information ENCOUNTERS Encounter Location Date Diagnosis [facility] [address] [facility] [id number] [place] [address] 22 Sep, 2017 Medicare annual wellness visit, initial Z00.00 ; Parkinsons G20 ; COPD (chronic obstructive pulmonary disease) J44.9 ; Major depressive disorder, single episode, mild F32.0 ; HTN (hypertension) I10 ; Hypokalemia E87.6 and Adverse effect of carbonic-anhydrase inhibitors, benzothiadiazides and other diuretics, initial encounter T50.2X5A [facility] [id number] [place] [address] 05312- 4654 Sep, Localized edema R60.0 [facility] [id number] [place] [address] 47964- 9107 Sep, [facility] [id number] [place] [address] 48527- 3579 Sep, Major depressive disorder, single episode, mild F32.0 ; PTSD (post-traumatic stress disorder) F43.10 and Edema of both legs R60.0 [facility] [id number] [place] [address] 37829- 6522 August, Localized edema R60.0 [facility] [id number] [place] [address] 63190- 1425 August, Localized edema R60.0 ; Weight gain R63.5 and Irritable bowel syndrome with diarrhea K58.0 [facility] [id number] [place] [address] 01862- 3581 Jul, [facility] [id number] [place] [address] 77270- 5500 Jul, Elevated liver enzymes R74.8 [facility] [id number] [place] [address] 02480- 1987 Jul, Polyneuropathy G62.9 [facility] [id number] [place] [address] 64054- 8329 Jul, [facility] [id number] [place] [address] 73165- 3168 Jul, Cervical disc disease M50.90 [facility] [id number] [place] [address] 39219- 2431 Jul, Elevated liver enzymes R74.8 [facility] [id number] [place] [address] 15273- 3574 Jul, Polyneuropathy G62.9 ; Ulcerative pancolitis without complication K51.00 ; Depression F32.9 ; Leg weakness, bilateral R29.898 and Paresthesia of bilateral legs R20.2 [place] [id number] [place] [address] 14582- 6076 Jul, Polyneuropathy G62.9 ; Ulcerative pancolitis without complication K51.00 ; Depression F32.9 ; Leg weakness, bilateral R29.898 and Paresthesia of bilateral legs R20.2 [facility] [id number] [place] [address] 30961- 3086 Jun, [facility] [id number] [place] [address] 53634- 4963 Jun, Fibrous breast lumps N63.0 [facility] [id number] [place] [address] 36691- 4677 Jun, Ulcerative pancolitis without complication K51.00 [facility] [id number] [place] [address] 50331- 8931 Jun, Abnormal mammogram R92.8 [facility] [id number] [place] [address] 17915- 9310 Jun, Breast density R92.2 [facility] [id number] [place] [address] 09505- 7949 Jun, [facility] [id number] [place] [address] 63345- 1764 Jun, PTSD (post-traumatic stress disorder) F43.10 [facility] [id number] [place] [address] 82937- 0694 May, [facility] [id number] [place] [address] 37499- 4089 May, Breast cancer screening Z12.31 and Fibrous breast lumps N63.0 [facility] [id number] [place] [address] 09046- 5246 Apr, Ulcerative pancolitis without complication K51.00 [facility] [id number] [place] [address]- 2546 Apr, [facility] [id number] [place] [address] 10755- 2180 Apr, Ulcerative pancolitis without complication K51.00 ; Low back pain M54.5 and Other chronic pain G89.29 [facility] [id number] [place] [address] 75916- 1247 Dec, Cervical disc disease M50.90 and HTN (hypertension) I10 [facility] [id number] [place] [address] 90639- 0998 Dec, Moderate episode of recurrent major depressive disorder F33.1 and PTSD (post-traumatic stress disorder) F43.10 [facility] [id number] [place] [address] 69271- 6975 Oct, [place] [id number] [place] [address] 49702- 7311 Oct, Irritable bowel syndrome with diarrhea K58.0 [facility] [id number] [place] [address] 03382- 3158 Oct, Irritable bowel syndrome with diarrhea K58.0 [facility] [id number] [place] [address] 94504- 7835 Sep, Diarrhea, unspecified type R19.7 ; Chronic pain G89.29 ; Hypertriglyceridemia E78.1 ; PTSD (post-traumatic stress disorder) F43.10 ; History of herniated intervertebral disc Z87.39 and Depression F32.9 [facility] [id number] [place] [address] 51423- 7549 August, Moderate episode of recurrent major depressive disorder F33.1 and PTSD (post-traumatic stress disorder) F43.10 [facility] [id number] [place] [address] 26177- 2072 August, [facility] [id number] [place] [address] 06246- 4744 Jul, [facility] [id number] [place] [address] 24912- 4354 Jul, PTSD (post-traumatic stress disorder) F43.10 ; IBS ( irritable bowel syndrome) K58.9 ; HTN (hypertension) I10 ; Hypertriglyceridemia E78.1 ; Chronic pain G89.29 ; Anxiety F41.9 ; Depression F32.9 ; COPD (chronic obstructive pulmonary disease) J44.9 ; Irritable bowel syndrome with diarrhea K58.0 and Second degree hemorrhoids K64.1 [facility] [address] 58075- 2151 Jul, PTSD (post-traumatic stress disorder) F43.[address] 11608- 1646 Jul, [facility] [address] 92297- 0332 Jun, [address] 28065- 5499 Jun, HTN (hypertension) I10 [place] [id number] [place] [address] 27286- 0628 May, Depression F32.9 ; Post traumatic stress disorder F43.10 and Screening mammogram, encounter for Z12.31 [place] [id number] [place] [address] 03484- 4529 May, [place] [id number] [place] [address] 41068- 5786 May, PTSD (post-traumatic stress disorder) F43.10 and Major depressive disorder in partial remission F32.[address] 95404- 8716 May, PTSD (post-traumatic stress disorder) F43.10 ; IBS ( irritable bowel syndrome) K58.9 ; History of herniated intervertebral disc Z87.39 ; Anxiety F41.9 ; Depression F32.9 ; Hypertriglyceridemia E78.1 ; Eczema of both hands L30.9 ; HTN (hypertension) I10 and COPD (chronic obstructive pulmonary disease) J44.9 [facility] [place] [id number] [place] [address] 16543- 1930 Apr, Major depressive disorder in partial remission F32.4 and PTSD (post-traumatic stress disorder) F43.10 [facility] [id number] [place] [address] 03190- 4521 Apr, PTSD (post-traumatic stress disorder) F43.10 [facility] [id number] [place] [address] 77010- 4454 Mar, IBS (irritable bowel syndrome) K58.9 ; PTSD (post-traumatic stress disorder) F43.10 ; COPD (chronic obstructive pulmonary disease) J44.9 ; History of herniated intervertebral disc Z87.39 ; HTN (hypertension) I10 ; Parkinsons G20 ; Annular psoriasis L40.8 and Hypertriglyceridemia E78.1 [facility] [address] 74304- 8329 Feb, [address] 32591- 9588 Feb, Moderate episode of recurrent major depressive disorder F33.1 and PTSD (post-traumatic stress disorder) F43.10 [place] [id number] [place] [address] 87443- 3692 Jan, Onychocryptosis L60.0 [facility] [id number] [place] [address] 61947- 0661 Dec, [address] 16124- 3257 Dec, Dizziness R42 ; PTSD (post-traumatic stress disorder) F43.10 ; Posttraumatic stress disorder F43.10 ; IBS (irritable bowel syndrome) K58.9 ; History of herniated intervertebral disc Z87.39 ; HTN (hypertension) I10 ; Chronic pain G89.29 and Hypercholesterolemia E78.0 [place] [address] [address]- 3[address] 15 Dec, 2015 [facility] [id number] [place] [address] 26185- 4791 14 Dec, 2015 [facility] [id number] [place] [address] 52545 -8847 Dec, Annular psoriasis L40.8 [facility] [id number] [place] [address] 66854- 9726 Nov, [facility] [id number] [place] [address] 82299- 3382 Nov, [facility] [id number] [place] [address] 05286- 1377 Nov, HTN (hypertension) I10 ; Chronic pain G89.29 ; Annular psoriasis L40.8 ; IBS (irritable bowel syndrome) K58.9 and Vision changes H53.9 [facility] [id number] [place] [address] 37526- 8267 Oct, [facility] [id number] [place] [address] 58788- 8236 Oct, IBS (irritable bowel syndrome) K58.9 ; PTSD (post-traumatic stress disorder) F43.10 ; HTN (hypertension) I10 ; Depression F32.9 ; History of herniated intervertebral disc Z87.39 ; Anxiety F41.9 ; Chronic pain G89.29 and Hypercholesterolemia E78.0 [facility] [id number] [place] [address] 52703- 5848 Oct, Major depressive disorder in partial remission F32.4 and PTSD (post-traumatic stress disorder) F43.10 [facility] [place] [id number] [place] [address] 74357- 9934 Oct, IBS (irritable bowel syndrome) K58.9 ; PTSD (post-traumatic stress disorder) F43.10 ; Major depressive disorder, recurrent episode, severe F33.2 ; Anxiety F41.9 and Impacted cerumen, unspecified laterality H61.20 [place] [id number] [place] [address] 15292- 6748 Oct, Major depressive disorder in partial remission F32.4 ; Posttraumatic stress disorder F43.10 and Anxiety F41.9 [facility] [id number] [place] [address] 80724- 3143 Sep, [place] [address] 01128- 7106 Sep, Anxiety F41.9 ; Major depressive disorder, recurrent episode , mild F33.0 and Posttraumatic stress disorder F43.10 [facility] [place] [id number] [place] [address] 17656- 3849 Sep, [facility] [id number] [place] [address] 33816- 7637 August, [facility] [address] 39105- 3924 Jul, Contact dermatitis L25.9 [facility] [place] [id number] [place] [address] 04641- 4752 Jul, Major depressive disorder, recurrent episode, severe F33.2 ; Posttraumatic stress disorder F43.10 and Anxiety F41.9 [facility] [id number] [place] [address] 43483- 0292 Jul, [facility] [place] [id number] [place] [address] 30257- 0013 Jun, IBS (irritable bowel syndrome) K58.9 ; COPD (chronic obstructive pulmonary disease) J44.9 ; HTN (hypertension) I10 ; Chronic pain G89.29 ; Anxiety F41.9 ; PTSD (post-traumatic stress disorder) F43.10 ; Parkinsons G20 and Hypercholesterolemia E78.0 [facility] [place] [id number] [place] [address] 40408- 3992 Jun, [facility] [id number] [place] [address] 82208- 4300 Jun, Onychocryptosis L60.0 and Onychomycosis B35.1 [place] [address] [address]- 9766 May, [facility] [id number] [place] [address] 37985- 9646 May, IBS (irritable bowel syndrome) K58.9 ; COPD (chronic obstructive pulmonary disease) J44.9 ; History of herniated intervertebral disc Z87.39 ; HTN (hypertension) I10 ; Anxiety F41.9 ; Depression F32.9 and Major depressive disorder in partial remission F32.4 [place] [address] [place] [address] 13697- 7586 08 May, 2015 IBS (irritable bowel syndrome) K58.9 ; COPD (chronic obstructive pulmonary disease) J44.9 ; History of herniated intervertebral disc Z87.39 ; HTN (hypertension) I10 ; Anxiety F41.9 ; Depression F32.9 and Major depressive disorder in partial remission F32.4 [place] [address], [place] [address]- 9718 May, [place] [id number] [place] [address] 50513- 5750 May, Anxiety F41.9 ; IBS (irritable bowel syndrome) K58.9 and Major depressive disorder in partial remission F32.4 [place] [address] [address]- 7454 Apr, Encounter for screening mammogram for breast cancer Z12.31 [facility] [address] [address]- 1193 Apr, [place] [id number] [place] [address] 47872- 5694 Apr, [place] [address] [address]- 8560 Apr, COPD (chronic obstructive pulmonary disease) J44.9 ; HTN ( hypertension) I10 ; Chronic pain G89.29 ; Anxiety F41.9 ; PTSD (post-traumatic stress disorder) F43.10 and IBS (irritable bowel syndrome) K58.9 [place] [id number] [place] [address] 03466- 2697 Apr, PTSD (post-traumatic stress disorder) F43.10 [place] [id number] [place] [address] 51162- 9536 Apr, Onychocryptosis L60.0 and Onychomycosis B35.1 [place] [id number] [place] [address] 80388- 7398 Apr, IBS (irritable bowel syndrome) K58.9 ; COPD (chronic obstructive pulmonary disease) J44.9 ; History of herniated intervertebral disc Z87.39 ; HTN (hypertension) I10 ; Chronic pain G89.29 ; Anxiety F41.9 ; Depression F32.9 ; Parkinsons G20 ; Hypercholesteremia E78.0 and Hemorrhoid K64.9 [place] [id number] [place] [address] 79905- 0250 Mar, [address] 83984- 1505 Mar, Major depressive disorder, recurrent episode, severe F33.2 and Posttraumatic stress disorder F43.10 [facility] [id number] [place] [address] 43451- 3602 Mar, [place] [id number] [place] [address] 09178- 1071 Mar, [place] [id number] [place] [address] 14206- 4040 Mar, PTSD (post-traumatic stress disorder) F43.10 [place] [id number] [place] [address] 05698- 0674 Mar, Onychomycosis B35.1 and Hypertension, benign I10 [address] 56741- 6825 Mar, Onychomycosis B35.1 and Hypertension, benign I10 [place] [id number] [place] 8226 Feb, PTSD (post-traumatic stress disorder) F43.10 [facility] [id number] [place] [address] 68630- 4606 Feb, [facility] [address] 99162 1411 Feb, Major depressive disorder, recurrent episode, severe F33.2 and Posttraumatic stress disorder F43.10 [place] [id number] [place]- 3134 Jan, PTSD (post-traumatic stress disorder) F43.10 [facility] [id number] [place] [address] 17768- 5726 Jan, Rash R21 [facility] [id number] [place] [address] 203897- 3787 Jan, PTSD (post-traumatic stress disorder) F43.10 [place] [id number] [place] [address] 88587- 2106 Jan, [place] [id number] [place] [address] 09113- 0286 Dec, Neuropathy 355.9 [facility] [id number] [place] [address] 878101- 9542 30 Dec, 2014 PTSD (post-traumatic stress disorder) F43.10 [facility] [id number] [place] [address] 88934- 8857 29 Dec, 2014 MDD (major depressive disorder), recurrent episode, severe 296.33 and PTSD (post-traumatic stress disorder) 309.81 [facility] [id number] [place] [address] 55866- 4228 23 Dec, 2014 [facility] [address] [place] 916262- 3530 Dec, Ingrown toenail 703.0 [facility] [address]- 2165 Dec, Posttraumatic stress disorder 309.81 [facility] [address]- 3448 Nov, Depressive disorder, not elsewhere classified 311 and Anxiety state, unspecified 300.00 [facility] [id number] [place] [address] 302924- 4665 Oct, Depressive disorder, not elsewhere classified 311 and Anxiety state, unspecified 300.00 [facility] [id number] [place] [address] 310286- 1457 Oct, Depressive disorder, not elsewhere classified 311 ; Anxiety state, unspecified 300.00 and No condition on [place] II V71.09 [facility] [address] [id number] Oct, Dental examination V72.2 [facility] [id number] [place] [address] 46569- 3948 Oct, [facility] [id number] [place] [address] 09037- 0043 August, [facility] [address], [place] [address]- 8160 August, Seizure 780.39 and IBS (irritable bowel syndrome) 564.1 [facility] [address], [place] [address]- 4319 Jul, [facility] [address], [place] [address]- 6138 Jul, [facility] [address]- 1585 Jun, [facility] [address] [address]- 2463 Jun, [facility] [id number] [address]- 5503 20 Jun, 2014 [facility] [address] [id number] [place] [address]- 6456 20 Jun, 2014 [facility] [place] [facility] [address] [id number] [place] [address]- 0696 20 Jun, 2014 [facility] [place] [facility] [address] [id number] [place] [address]- 7096 20 Jun, 2014 [facility] [place] [facility] [address] [id number] [place] [address]- 0653 20 Jun, 2014 [facility] [place] [facility] [address] [id number] [place] [address]- 8472 20 Jun, 2014 [facility] [place] [facility] [address] [id number] [place] [address]- 6487 20 Jun, 2014 [facility] [place] [facility] [address] [id number] [place] [address]- 1993 20 Jun, 2014 [facility] [place] [facility] [address] [id number] [place] [address]- 8307 2014 [facility] [place] [facility] [address] [id number] [place] [address]- 6668 2014 [facility] [place] [facility] [address] [id number] [place] [address]- 1184 13 May, 2014 [facility] [place] [facility] [address] [id number] [place] [address]- 4253 May, [facility] [place] [facility] [address] [id number] [place] [address]- 7846 Apr, [facility] [place] [facility] [address] [id number] [place] [address]- 9396 Apr, [facility] [place] [facility] [address] [id number] [place] [address]- 0236 Mar, [facility] [place] [facility] [address] [id number] [place] 0830 Mar, [facility] [place] [facility] [address] [id number] [place] [address]- 0740 Mar, [facility] [place] [facility] [address] [id number] [place] [address]- 7824 Mar, [facility] [place] [facility] [address] [id number] [place] [address]- 4701 Mar, [facility] [place] [facility] [address] [id number] [place] [address]- 0275 Mar, [facility] [place] [facility] [address] [id number] [place] [address]- 9210 Mar, [facility] [place] [facility] [address] [id number] [place] [address]- 0251 Mar, [facility] [place] [facility] [address] [id number] [place] [address]- 7604 Mar, [facility] [place] [facility] [address] [id number] [place] [address]- 9551 Mar, [facility] [place] [facility] [address] [id number] [place] [address]- 7284 Mar, [facility] [place] [facility] [address] [id number] [place] [address]- 6384 Mar, [facility] [place] [facility] [address] [id number] [place] [address]- 0878 Mar, [facility] [place] [facility] [address] [id number] [place] [address]- 4023 Mar, [facility] [place] [facility] [address] [id number] [place] [address]- 5083 Mar, [facility] [place] [facility] [address] [id number] [place] [address]- 5785 Mar, [facility] [place] [facility] [address] [id number] [place] 2421 Mar, [facility] [place] [facility] [address] [id number] [address]- 5096 Mar, [facility] [place] [facility] [address] [id number] [place] [address]- 0275 Mar, [facility] [place] [facility] [address] [id number] [place] [address] Feb, [facility] [place] [facility] [address] [facility] [id number] [place] [address] Feb, [facility] [place] [facility] [address] [id number] [place] [address] Feb, [facility] [place] [facility] [address] [id number] [place] [address] Feb, [facility] [place] [facility] [address] [id number] [place] [address] Feb, [facility] [place] [facility] [address] [id number] [place] [address] Feb, [facility] [place] [facility] [address] [id number] [place] [address] Feb, [facility] [place] [facility] [address] [id number] [place] [address] Feb, [facility] [place] [facility] [address] [facility] [id number] [place] [address] Jan, [facility] [place] [facility] [address] [id number], [place] [address] Jan, [facility] [place] [facility] [address] [id number], [place] [address] Nov, [facility] [place] [facility] [address] [id number] [place] [address] Nov, [facility] [place] [facility] [address] [facility] [id number], [place] [address] Oct, [facility] [place] [facility] [address] [facility] [id number], [place] [address] Oct, [facility] [place] [facility] [address] [id number] [place] [address] 15 Oct, 2013 [facility] [place] [facility] [address] [id number] [place] [address] Oct, [facility] [place] [facility] [address] [id number] [place] [address] Oct, [facility] [place] [facility] [address] [id number] [place] [address] Sep, [facility] [place] [facility] [address] [id number] [place] [address] Sep, [facility] [place] [facility] [address] [id number] [place] [address] August, [facility] [place] [facility] [address] [id number] [place] [address] August, [facility] [place] [facility] [address] [id number] [place] [address] Jun, [facility] [place] [facility] [address] [id number] [place] [address] 24 Jun, 2013 [facility] [place] [facility] [address] [id number] [place] [address] Jun, [facility] [place] [facility] [address] [id number] [place] [address] Jun, [facility] [place] [facility] [address] [id number] [place] [address] 10 Jun, 2013 [facility] [place] [facility] [address] [id number] [place] [address] 10 Jun, 2013 [facility] [place] [facility] [address] [id number] [place] [address] 07 Jun, 2013 [facility] [place] [facility] [address] [id number] [place] [address] 07 Jun, 2013 [facility] [place] [facility] [address] [id number] [place] [address] 07 Jun, 2013 [facility] [place] [facility] [address] [id number] [place] [address] 07 Jun, 2013 [facility] [place] [facility] [address] [id number] [place] [address] Jun, [facility] [place] [facility] [address] [id number] [place] [address] Jun, [facility] [place] [facility] [address] [id number] [place] [address] Jun, [facility] [place] [facility] [address] [id number] [place] [address] Jun, [facility] [place] [facility] [address] [id number] [place] [address] May, [facility] [place] [facility] [address] [id number] [place] [address] May, [facility] [place] [facility] [address] [id number] [place] [address] Apr, [facility] [place] [facility] [address] [id number] [place] [address] Apr, [facility] [place] [facility] [address] [id number] [place] [address] Mar, [facility] [place] [facility] [address] [id number] [place] [address] Mar, [facility] [place] [facility] [address] [id number], [place] [address] Feb, [facility] [place] [facility] [address] [id number] [place] [address] Feb, [facility] [place] [facility] [address] [id number] [place] [address] Feb, [facility] [place] [facility] [address] [id number] [place] [address] Feb, [facility] [place] [facility] [address] [id number] [place] [address] Feb, [facility] [address] [id number] [place] [address] Feb, [facility] [address] [id number] [place] [address] Feb, [facility] [address] [id number] [place] [address] Jan, [facility] [address] [id number] [place] [address] 100[address] Jan, [facility] [address] [id number] [place] [address] Dec, [facility] [address] [id number] [place] [address] 1460 Dec, [facility] [address] [id number] [place] [address] Nov, [facility] [address] [id number] [place] [address] Nov, [facility] [address] [id number] [place] [address] Oct, [facility] [address] [id number] [place] [address] Sep, [facility] [place] [facility] [address] [id number] [place] [address] 1394 Sep, [facility] [place] [facility] [address] [id number] [place] [address] August, [facility] [place] [facility] [address] [id number] [place] [address] August, [facility] [place] [facility] [address] [id number] [place] [address] August, [facility] [place] [facility] [address] [id number] [place] [address] Jul, [facility] [place] [facility] [address] [id number] [place] [address] May, [facility] [place] [facility] [address] [id number] [place] [address] May, [facility] [place] [facility] [address] [id number] [place] [address] Apr, [facility] [place] [facility] [address] [id number] [place] [address] 69[address] Apr, [facility] [place] [facility] [address] [id number] [place] [address] 38[address] Feb, [facility] [place] [facility] [address] [id number] [place] [address]- [address] Feb, [facility] [place] [facility] [address] [id number] [place] [address] 250[address] Jan, [facility] [place] [facility] [address] [id number] [place] [address] Jan, [facility] [place] [facility] [address] [id number] [place] [address]- 37[address] Jan, [facility] [place] [facility] [address] [id number], [place] [address] Nov, [facility] [place] [facility] [address] [id number] [place] [address] Nov, [facility] [place] [facility] [address] [id number], [place] [address] Nov, [facility] [place] [facility] [address] [id number] [place] [address]- 2727 Nov, [facility] [place] [facility] [address] [id number] [place] [address]- 275[address] Nov, [facility] [place] [facility] [address] [id number] [place] [address]- 05[address] Oct, [facility] [place] [facility] [address] [id number], [place] [address] 26 Oct, 2011 [facility] [address] [id number] [place] [address]- 28[address] 25 Oct, 2011 [facility] [place] [facility] [address] [id number] [place] [address]- 4[address] 14 Oct, 2011 [facility] [place] [facility] [address] [id number] [place] [address]- 6378 Oct, [facility] [place] [facility] [address] [id number] [place] [address]- 3473 Oct, [facility] [place] [facility] [address] [id number] [place] [address]- 68[address] Oct, [facility] [place] [facility] [address] [id number] [place] [address]- [address] Sep, [facility] [address] [id number] [place] [address]- [address] Sep, [facility] [place] [facility] [address] [id number] [place] [address]- 54[address] 08 Sep, 2011 [facility] [place] [facility] [address] [id number] [place] [address]- [address] August, [facility] [place] [facility] [address] [id number] [place] [address]- 7[address] 30 Jul, 2011 [facility] [place] [facility] [address] [id number] [place] [address]- [address] 28 Jul, 2011 [facility] [place] [facility] [address] [id number] [place] [address]- [address]31 27 Jul, 2011 [facility] [place] [facility] [address] [id number] [place] [address]- 4[address] 16 Jul, 2011 [facility] [place] [facility] [address] [id number] [place] [address]- 7526 13 Jul, 2011 [facility] [place] [facility] [address] [id number] [place] [address]- [address] 2011 [facility] [place] [facility] [address] [id number] [place] [address]- 5595 May, [facility] [place] [facility] [address] [id number] [place] [address]- 7235 Apr, [facility] [place] [facility] [address] [id number] [place] [address]- 2339 Apr, [facility] [place] [facility] [address] [id number] [place] [address]- 1495 Apr, [facility] [place] [facility] [address] [id number] [place] [address]- 7503 Apr, [facility] [place] [facility] [address] [id number] [place] [address]- 4599 Apr, [facility] [place] [facility] [address] [id number] [place] [address]- 1250 Apr, [facility] [place] [facility] [address] [id number] [place] [address]- 75[address] Mar, [facility] [place] [facility] [address] [id number] [place] [address]- 9899 Mar, [facility] [place] [facility] [address] [id number] [place] [address]- 8477 Feb, [facility] [place] [facility] [address] [id number] [place] [address]- 3566 Nov, [facility] [place] [facility] [address] [id number] [place] [address]- 8524 Jun, [facility] [place] [facility] [address] [id number] [place] [address]- [address] Apr, [facility] [place] [facility] [address] [id number] [place] [address]- 4787 Feb, [facility] [place] [facility] [address] [id number] [place] [address] Jan, [facility] [place] [facility] [address] [id number] [place] [address]- 3972 Jan, [facility] [address] [facility] [id number][place] Jan, [facility] [address] [facility] [id number], [place] [address] Jan, [facility] [address] [id number], [place] [address] Nov, [facility] [address] [facility] [id number], [place] [address]- [address] Nov, [facility] [address] [facility] [id number][place] Mar, [facility] [id number], [place] [address] Mar, [facility] [id number], [place] [address] Feb, [facility] [id number], [place] [address]- [address] Feb, [facility] [address] [id number], [place] [address]- [address] Jan, [facility] [address] [id number], [place] [address] May, IMMUNIZATIONS No Known Immunizations SOCIAL HISTORY Never Assessed REASON FOR VISIT needs mammogram PLAN OF CARE VITAL SIGNS MEDICATIONS No Known Medications RESULTS No Results PROCEDURES No Known [...]
--- OUTSIDE RECORDS SUMMARY | 2018-03-25 15:18 | XMS REPORT ---
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 Info Not Available Non Drug Allergy Problems Problem Type Condition Code [...] Problem Other chronic pain 338.29 Active Assessment Rash R21 Active Problem PTSD (post-traumatic stress disorder) F43.10 [...] the oral soft tissues 528.9 Active Medications Medication Code System Code Instructions Start Date End Date Status Dosage Trazodone HCl [facility] [address]-39 50 MG Orally Once a day at Jan 23, 2015 1 tablet at bedtime as needed PredniSONE [facility] [address]-82 20 MG Orally Twice a day Feb 19, 2015Jan 1 tablet with food or milk Acidophilus [facility] 98181514341 100 MG Orally Once a day 1 Zocor [facility] [address]-08 40 MG Orally Once a day 1 tablet in the evening Neurontin [facility] [address]-37 400 MG Orally 3 times a day 1 capsule verapamil [facility] 0 180 mg 1 ERC orally once a day July 14, 2014 1 Tablet by Oral route 1 time per day take one tablet by mouth daily MiraLax [facility] [address]-89 17 gram/dose July 07, 2014 take 8.5 g mixed with 8 oz. water or juice by Oral route 1 time per day Indomethacin [facility] [address]-50 25 MG Orally Three times a day 1 capsule with food Carbidopa-Levodopa [facility] [address]-00 10-100 mg Jun 09, 2014 1 tablet by Oral route 3 times per day Hydrochlorothiazide [facility] [address]-37 25 mg 1 TAB orally once a day Feb 1 tablet by Oral route 1 time per day Colace [facility] [address]-93 100 MG Orally Once a day 1 capsule as needed Simvastatin [facility] 92144945568 40 MG TAKE ONE TABLET BY MOUTH DAILY Cymbalta [facility] [address]-91 30 MG Orally Once a day Jan 23, 2015 1 capsule Hyoscyamine Sulfate [facility] [address]-28 0.375 mg Mar 13, 2014 1 tablet by Oral route every 12 hours Procedures Procedure Coding System Code Date Office Visit, Est Pt., Level 3 CPT-4 38034 Feb 19, 2015 Vital Signs Date/Time: Feb 19, 2015 Temperature 97.9 F Weight 152.4 lbs Height 64 in BMI 26.16 Index Blood Pressure Diastolic 76 mmHg Blood Pressure Systolic 122 mmHg Cardiac Monitoring Heart Rate 88 bpm Results No Known Results Summary Purpose eClinicalWorks Submission
--- OUTSIDE RECORDS SUMMARY | 2018-03-25 15:18 | XMS REPORT ---
Author MARYANA Deng [facility] eClinicalWorks Address Unknown Phone Unavailable Care Team Providers Care Student Assistant Name Role Phone MARYANA ROJO CP Unavailable Allergies No Known Allergies Problems [...] Active Problem Chronic pain G89.29 Active Assessment Encounter for screening mammogram for breast cancer Z12.31 Active Problem ZOSTAVAX DX V05.8 Active Problem PTSD (post-traumatic stress disorder) F43.10 Active Medications No Known Medications Results No Known Results Summary Purpose eClinicalWorks Submission
--- OUTSIDE RECORDS SUMMARY | 2018-03-25 15:18 | XMS REPORT ---
Author Author MARYANA ROJO Organization [facility] Address [address] [place] [address] Care Team Providers Care Diving Fisher Name Role Phone ROJO MARYANA Unavailable PROBLEMS Type Condition ICD9-CM Code OSS98-PL Code Onset Dates Condition Status SNOMED Code Problem IBS (irritable bowel syndrome) K58.9 Active 66701975 Problem Moderate episode of recurrent major depressive disorder F33.1 Active 523879640 Problem Impacted cerumen, unspecified laterality H61.20 Active 97477668 Problem Irritable bowel syndrome with diarrhea K58.0 Active 324185459 Problem ZOSTAVAX DX V05.8 Active 17249271 Problem Second degree hemorrhoids K64.1 Active 21783098 Problem Dizziness R42 Active 154031127 Problem Annular psoriasis L40.8 Active 849265507 Problem Eczema of both hands L30.9 Active 337679566 Problem Hypertriglyceridemia E78.1 Active 546368265 Problem Major depressive disorder in partial remission F32.4 Active 61215595 Problem COPD (chronic obstructive pulmonary disease) J44.9 Active 36329894 Problem PTSD (post-traumatic stress disorder) F43.10 Active 72998177 Problem Major depressive disorder, recurrent episode, severe F33.2 Active 995657193178 Problem Anxiety F41.9 Active 66143174 Problem Chronic pain G89.29 Active 98156685 Problem HTN (hypertension) I10 Active 63500303 Problem History of herniated intervertebral disc Z87.39 Active 101355462 Problem Depression F32.9 Active 85471734 Problem Parkinsons G20 Active 27637007 ALLERGIES Substance Reaction Event Type Date Status Latex Unknown Drug Allergy May, Active SOCIAL HISTORY No smoking Hx information available PLAN OF CARE Activity Details Follow Up 3 Months Reason: VITAL SIGNS Height 64 in 2016-05-29 Weight 154.4 lbs 2016-05-29 Temperature 98.2 degrees Fahrenheit 2016-05-29 Heart Rate 80 bpm 2016-05-29 Respiratory Rate 18 2016-05-29 BMI 26.50 kg/m2 2016-05-29 Blood pressure systolic 152 mmHg 2016-05-29 Blood pressure diastolic 76 mmHg 2016-05-29 MEDICATIONS Medication Instructions Dosage Frequency Start Date End Date Duration Status Acidophilus 100 mg Orally 3 times a day 1 8h Active Clobetasol Prop Emollient Base 0.05 % Externally Twice a day 1 application to affected area 12h May, 22 May, 2016 10 day(s) Active Clonazepam 0.5 MG Orally TAKE ONE TABLET BY MOUTH ONCE DAILY IN THE AFTERNOON 1 tablet Active Verapamil HCl CR 180 MG orally once daily TAKE ONE TABLET BY MOUTH ONCE DAILY 24h 30 days Active Indomethacin 25 MG Orally Three times a day 1 capsule with food 8h Active Neurontin 400 MG Orally 3 times a day 1 capsule 8h Active Celexa 20 mg Orally Once a day 1 tablet 24h Apr, Active RESULTS No Results PROCEDURES Procedure Date Ordered Related Diagnosis Body Site [facility] VISIT ESTABLISHED PATIENT May 29, 2016 Office Visit, Est Pt., Level 4 May 29, 2016 IMMUNIZATIONS No Known Immunizations
--- OUTSIDE RECORDS SUMMARY | 2018-03-25 15:19 | XMS REPORT ---
Author Author MILLER FLORES Organization [facility] Address [address] [place] [address] Care Team Providers Care Map Maker Name Role Phone MILLER FLORES Unavailable PROBLEMS Type Condition ICD9-CM Code ECD25-BK Code Onset Dates Condition Status SNOMED Code Problem IBS (irritable bowel syndrome) K58.9 Active 19535912 Problem Moderate episode of recurrent major depressive disorder F33.1 Active 250596368 Problem Impacted cerumen, unspecified laterality H61.20 Active 53170454 Problem Irritable bowel syndrome with diarrhea K58.0 Active 656199106 Problem ZOSTAVAX DX V05.8 Active 95930301 Problem Second degree hemorrhoids K64.1 Active 10765770 Problem Dizziness R42 Active 484319596 Problem Annular psoriasis L40.8 Active 672549389 Problem Eczema of both hands L30.9 Active 934755898 Problem Hypertriglyceridemia E78.1 Active 456210622 Problem Major depressive disorder in partial remission F32.4 Active 14073343 Problem COPD (chronic obstructive pulmonary disease) J44.9 Active 04428569 Problem PTSD (post-traumatic stress disorder) F43.10 Active 56827502 Problem Major depressive disorder, recurrent episode, severe F33.2 Active 353350804460 Problem Anxiety F41.9 Active 44680260 Problem Chronic pain G89.29 Active 24270660 Problem HTN (hypertension) I10 Active 78528364 Problem History of herniated intervertebral disc Z87.39 Active 175143503 Problem Depression F32.9 Active 85153063 Problem Parkinsons G20 Active 63279107 ALLERGIES Substance Reaction Event Type Date Status Latex Unknown Drug Allergy May, Active SOCIAL HISTORY Never Assessed PLAN OF CARE Activity Details Follow Up 3 Months Reason: VITAL SIGNS Height 64 in 2016-06-05 Weight 154.4 lbs 2016-06-05 Heart Rate 88 bpm 2016-06-05 Respiratory Rate 20 2016-06-05 BMI 26.50 kg/m2 2016-06-05 Blood pressure systolic 134 mmHg 2016-06-05 Blood pressure diastolic 72 mmHg 2016-06-05 MEDICATIONS Medication Instructions Dosage Frequency Start Date End Date Duration Status Celexa 20 mg Orally Once a day 1 tablet 24h Apr, Active Indomethacin 25 MG Orally Three times a day 1 capsule with food 8h Active Bentyl 10 mg Orally Four times a day 1 capsule 6h Active Clobetasol Prop Emollient Base 0.05 % Externally Twice a day 1 application to affected area 12h May, May, 10 day(s) Active Neurontin 400 MG Orally 3 times a day 1 capsule 8h Active Acidophilus 100 mg Orally 3 times a day 1 8h Active Clonazepam 0.5 MG Orally TAKE ONE TABLET BY MOUTH ONCE DAILY IN THE AFTERNOON 1 tablet Active Verapamil HCl CR 180 MG orally once daily TAKE ONE TABLET BY MOUTH ONCE DAILY 24h 30 days Active RESULTS No Results PROCEDURES Procedure Date Ordered Result Body Site [facility] VISIT ESTABLISHED PATIENT Jun 05, 2016 IMMUNIZATIONS No Known Immunizations MEDICAL (GENERAL) [...]
--- OUTSIDE RECORDS SUMMARY | 2018-03-25 15:19 | XMS REPORT ---
Author NAYA Escalera [facility] eClinicalWorks Address Unknown Phone Unavailable Care Team Providers Care Enterprise Analyst Name Role Phone NAYA JACKSON CP Unavailable [...] Problem Other chronic pain 338.29 Active Assessment Neuropathy 355.9 Active Problem PTSD (post-traumatic stress disorder) F43.10 [...] Date End Date Status Dosage Trazodone HCl [facility] [address]-00 50 MG Orally Once a day at Jan 23, 2015 1 tablet at bedtime as needed verapamil NDC 0 180 mg 1 ERC orally once a day July 14, 2014 1 Tablet by Oral route 1 time per day take one tablet by mouth daily Neurontin [facility] [address]-69 400 MG Orally 3 times a day 1 capsule MiraLax [facility] [address]-61 17 gram/dose July 07, 2014 take 8.5 g mixed with 8 oz. water or juice by Oral route 1 time per day Cymbalta [facility] [address]-43 30 MG Orally Once a day Jan 23, 2015 1 capsule Zocor [facility] [address]-71 40 MG Orally Once a day 1 tablet in the evening Colace [facility] [address]-75 100 MG Orally Once a day 1 capsule as needed Hydrochlorothiazide [facility] [address]-47 25 mg 1 TAB orally once a day Feb 1 tablet by Oral route 1 time per day Carbidopa-Levodopa [facility] [address]-48 10-100 mg Jun 09, 2014 1 tablet by Oral route 3 times per day Hyoscyamine Sulfate [facility] [address]-22 0.375 mg Mar 13, 2014 1 tablet by Oral route every 12 hours Simvastatin [facility] 50084690205 40 MG TAKE ONE TABLET BY MOUTH DAILY Indomethacin [facility] [address]-32 25 MG Orally Three times a day 1 capsule with food Acidophilus [facility] 07604093717 100 MG Orally Once a day 1 Procedures Procedure Coding System Code Date Office Visit, Est Pt., Level 3 CPT-4 00689 Jan 24, 2015 Vital Signs Date/Time: Jan 24, 2015 Temperature 98.4 F Weight 150.0 lbs Height 64 in BMI 25.74 Index Blood Pressure Diastolic 92 mmHg Blood Pressure Systolic 140 mmHg Cardiac Monitoring Heart Rate 96 bpm Results No Known Results Summary Purpose eClinicalWorks Submission
--- OUTSIDE RECORDS SUMMARY | 2018-03-25 15:19 | XMS REPORT ---
Author Author MARCIN MONTANO [facility] Address [address] [place] [address] Care Team Providers Care Shank Skinner Name Role Phone MARCIN MONTANO Unavailable PROBLEMS Type Condition ICD9-CM Code GSE72-FO Code Onset Dates Condition Status SNOMED Code Problem Annular psoriasis L40.8 Active 767167040 Problem Cervical disc disease M50.90 Active 404229577 Problem Hypertriglyceridemia E78.1 Active 086867763 Problem Irritable bowel syndrome with diarrhea K58.0 Active 381568469 Problem Abnormal mammogram R92.8 Active 635693227 Problem Ulcerative pancolitis without complication K51.00 Active 369412835 Problem Other chronic pain G89.29 Active 82880739 Problem Polyneuropathy G62.9 Active 98610806 Problem Paresthesia of bilateral legs R20.2 Active 304073946 Problem PTSD (post-traumatic stress disorder) F43.10 Active 20907066 Problem COPD (chronic obstructive pulmonary disease) J44.9 Active 99732888 Problem HTN (hypertension) I10 Active 02434164 Problem Major depressive disorder, recurrent episode, severe F33.2 Active 386060180470 Problem Depression F32.9 Active 19412168 Problem Parkinsons G20 Active 00928217 Problem Anxiety F41.9 Active 13547012 ALLERGIES Substance Reaction Event Type Date Status Latex Unknown Drug Allergy Dec, Active ENCOUNTERS Encounter Location Date Diagnosis [facility] [address] [facility] [id number] [address] Sep, [facility] [address] [place] [address] 91417- 7036 August, Localized edema R60.0 ; Weight gain R63.5 and Irritable bowel syndrome with diarrhea K58.0 [facility] [id number] [address] Jul, [facility] [address] [address] Jul, Elevated liver enzymes R74.8 [facility] [id number] [place] [address] 73365- 0120 Jul, Polyneuropathy G62.9 [facility] [id number] [place] [address] 52818- 8500 Jul, [facility] [id number] [place] [address] 41521- 2698 Jul, Cervical disc disease M50.90 [facility] [id number] [place] [address] 36486- 9792 Jul, Elevated liver enzymes R74.8 [place] [address] [place] [address] 42698- 1715 Jul, Polyneuropathy G62.9 ; Ulcerative pancolitis without complication K51.00 ; Depression F32.9 ; Leg weakness, bilateral R29.898 and Paresthesia of bilateral legs R20.2 [facility] [address] [place] [address] 39370- 2012 Jul, Polyneuropathy G62.9 ; Ulcerative pancolitis without complication K51.00 ; Depression F32.9 ; Leg weakness, bilateral R29.898 and Paresthesia of bilateral legs R20.2 [place] [address] [place] [address] 03154- 1156 Jun, [facility] [address] [place] [address] 04174- 0085 Jun, Fibrous breast lumps N63.0 [facility] [id number] [place] [address] 89499- 3635 Jun, Ulcerative pancolitis without complication K51.00 [facility] [place] [address] [place] [address] 59988- 1806 Jun, Abnormal mammogram R92.8 [facility] [id number] [place] [address] 79838- 1154 Jun, Breast density R92.2 [facility] [address] 31254- 1013 Jun, [facility] [id number] [place] [address] 34315- 4132 Jun, PTSD (post-traumatic stress disorder) F43.10 [facility] [address] 06852- 6166 May, [facility] [address] 40288- 8262 May, Breast cancer screening Z12.31 and Fibrous breast lumps N63.0 [facility] [place] [id number] [place] [address] 79992- 2299 Apr, Ulcerative pancolitis without complication K51.00 [facility] [address] 33434- 3656 Apr, [facility] [id number] [place] [address] 10307- 8026 Apr, Ulcerative pancolitis without complication K51.00 ; Low back pain M54.5 and Other chronic pain G89.29 [facility] [id number] [place] [address] 08813- 3267 Dec, Cervical disc disease M50.90 and HTN (hypertension) I10 [facility] [id number] [place] [address] 28593- 1779 05 Dec, 2016 Moderate episode of recurrent major depressive disorder F33.1 and PTSD (post-traumatic stress disorder) F43.10 [place] [id number] [place] [address] 18349- 7523 Oct, [place] [id number] [place] [address] 22627- 4838 Oct, Irritable bowel syndrome with diarrhea K58.0 [place] [address] [place] [address] 90393- 9273 Oct, Irritable bowel syndrome with diarrhea K58.0 [place] [id number] [place] [address] 99507- 2590 Sep, Diarrhea, unspecified type R19.7 ; Chronic pain G89.29 ; Hypertriglyceridemia E78.1 ; PTSD (post-traumatic stress disorder) F43.10 ; History of herniated intervertebral disc Z87.39 and Depression F32.9 [address] [id number] [place] [address] 41374- 6522 August, Moderate episode of recurrent major depressive disorder F33.1 and PTSD (post-traumatic stress disorder) F43.10 [address] [id number] [place] [address] 75676- 4333 August, [address] [id number] [place] [address] 83263- 9559 Jul, [place] [id number] [place] [address] 19372- 5475 Jul, PTSD (post-traumatic stress disorder) F43.10 ; IBS ( irritable bowel syndrome) K58.9 ; HTN (hypertension) I10 ; Hypertriglyceridemia E78.1 ; Chronic pain G89.29 ; Anxiety F41.9 ; Depression F32.9 ; COPD (chronic obstructive pulmonary disease) J44.9 ; Irritable bowel syndrome with diarrhea K58.0 and Second degree hemorrhoids K64.1 [place] [address] [place] [address] 86882- 4965 Jul, PTSD (post-traumatic stress disorder) F43.10 [address] [place] [address] 19873- 6292 Jul, [place] [id number] [place] [address] 80322- 9479 Jun, [place] [id number] [place] [address] 96050- 5418 Jun, HTN (hypertension) I10 [place] [address] [place] [address] 40456- 1724 May, Depression F32.9 ; Post traumatic stress disorder F43.10 and Screening mammogram, encounter for Z12.31 [facility] [place] [id number] [place] [address] 43608- 0099 May, [place] [address] 71714- 5946 May, PTSD (post-traumatic stress disorder) F43.10 and Major depressive disorder in partial remission F32.4 [place] [address] 85644- 2071 May, PTSD (post-traumatic stress disorder) F43.10 ; IBS ( irritable bowel syndrome) K58.9 ; History of herniated intervertebral disc Z87.39 ; Anxiety F41.9 ; Depression F32.9 ; Hypertriglyceridemia E78.1 ; Eczema of both hands L30.9 ; HTN (hypertension) I10 and COPD (chronic obstructive pulmonary disease) J44.9 [place] [id number] [place] [address] 74172- 3813 Apr, Major depressive disorder in partial remission F32.4 and PTSD (post-traumatic stress disorder) F43.10 [facility] [place] [address] [address]- 1493 Apr, PTSD (post-traumatic stress disorder) F43.10 [place] [id number] [place] [address] 66583- 2450 Mar, IBS (irritable bowel syndrome) K58.9 ; PTSD (post-traumatic stress disorder) F43.10 ; COPD (chronic obstructive pulmonary disease) J44.9 ; History of herniated intervertebral disc Z87.39 ; HTN (hypertension) I10 ; Parkinsons G20 ; Annular psoriasis L40.8 and Hypertriglyceridemia E78.1 [place] [id number] [place] [address] 91759- 8308 Feb, [facility] [id number] [place] [address] 17415- 4374 Feb, Moderate episode of recurrent major depressive disorder F33.1 and PTSD (post-traumatic stress disorder) F43.10 [place] [id number] [place] [address] 23973- 1454 07 Jan, 2016 Onychocryptosis L60.0 [facility] [address] 40598- 9961 30 Dec, 2015 [place] [address] 58895- 9008 Dec, Dizziness R42 ; PTSD (post-traumatic stress disorder) F43.10 ; Posttraumatic stress disorder F43.10 ; IBS (irritable bowel syndrome) K58.9 ; History of herniated intervertebral disc Z87.39 ; HTN (hypertension) I10 ; Chronic pain G89.29 and Hypercholesterolemia E78.0 [place] [id number] [place] [address] 64763- 3752 Dec, [place] [address] 48943- 5599 Dec, [facility] [id number] [place] [address] 80042 -9535 Dec, Annular psoriasis L40.8 [place] [id number] [place] [address] 80740- 2969 Nov, [place] [address] 23516- 8086 Nov, [place] [address] 81690- 0569 Nov, HTN (hypertension) I10 ; Chronic pain G89.29 ; Annular psoriasis L40.8 ; IBS (irritable bowel syndrome) K58.9 and Vision changes H53.9 [facility] [address] 70674- 5921 Oct, [place] [address] [place] [address] 17737- 3542 Oct, IBS (irritable bowel syndrome) K58.9 ; PTSD (post-traumatic stress disorder) F43.10 ; HTN (hypertension) I10 ; Depression F32.9 ; History of herniated intervertebral disc Z87.39 ; Anxiety F41.9 ; Chronic pain G89.29 and Hypercholesterolemia E78.0 [place] [id number] [place] [address] 46987- 9869 Oct, Major depressive disorder in partial remission F32.4 and PTSD (post-traumatic stress disorder) F43.10 [place] [id number] [place] [address] 81918- 6491 Oct, IBS (irritable bowel syndrome) K58.9 ; PTSD (post-traumatic stress disorder) F43.10 ; Major depressive disorder, recurrent episode, severe F33.2 ; Anxiety F41.9 and Impacted cerumen, unspecified laterality H61.20 [place] [id number] [place] [address] 15714- 1797 Oct, Major depressive disorder in partial remission F32.4 ; Posttraumatic stress disorder F43.10 and Anxiety F41.9 [place] [id number] [place] [address] 00170- 2502 Sep, [place] [address] [place] [address] 78074- 6631 Sep, Anxiety F41.9 ; Major depressive disorder, recurrent episode , mild F33.0 and Posttraumatic stress disorder F43.10 [place] [address] [place] [address] 92171- 2326 Sep, [place] [id number] [place] [address] 59335- 3742 August, [place] [id number] [place] [address] 23714- 8740 Jul, Contact dermatitis L25.9 [place] [id number] [place] [address] 46155- 3732 Jul, Major depressive disorder, recurrent episode, severe F33.2 ; Posttraumatic stress disorder F43.10 and Anxiety F41.9 [place] [id number] [place] [address] 07383- 1639 Jul, [place] [id number] [place] [address] 68301- 8267 Jun, IBS (irritable bowel syndrome) K58.9 ; COPD (chronic obstructive pulmonary disease) J44.9 ; HTN (hypertension) I10 ; Chronic pain G89.29 ; Anxiety F41.9 ; PTSD (post-traumatic stress disorder) F43.10 ; Parkinsons G20 and Hypercholesterolemia E78.0 [place] [id number] [place] [address] 22132- 5559 Jun, [address] 14710- 2275 Jun, Onychocryptosis L60.0 and Onychomycosis B35.1 [place] [id number] [place] [address] 88883- 9083 May, [place] [id number] [place] [address] 91814- 5631 May, IBS (irritable bowel syndrome) K58.9 ; COPD (chronic obstructive pulmonary disease) J44.9 ; History of herniated intervertebral disc Z87.39 ; HTN (hypertension) I10 ; Anxiety F41.9 ; Depression F32.9 and Major depressive disorder in partial remission F32.4 [place] [id number] [place] [address] 33041- 4194 08 May, 2015 IBS (irritable bowel syndrome) K58.9 ; COPD (chronic obstructive pulmonary disease) J44.9 ; History of herniated intervertebral disc Z87.39 ; HTN (hypertension) I10 ; Anxiety F41.9 ; Depression F32.9 and Major depressive disorder in partial remission F32.4 [place] [address] [place] [address] 86119- 4888 04 May, 2015 [id number] [place] [address] 99234- 7980 04 May, 2015 Anxiety F41.9 ; IBS (irritable bowel syndrome) K58.9 and Major depressive disorder in partial remission F32.4 [place] [id number] [place] [address] 44202- 2240 18 Apr, 2015 Encounter for screening mammogram for breast cancer Z12.[address] 13814- 4067 15 Apr, [address] 33345- 2107 Apr, [place] [id number] [place] [address] 03022- 6002 Apr, COPD (chronic obstructive pulmonary disease) J44.9 ; HTN ( hypertension) I10 ; Chronic pain G89.29 ; Anxiety F41.9 ; PTSD (post-traumatic stress disorder) F43.10 and IBS (irritable bowel syndrome) K58.[address] 52391- 7795 Apr, PTSD (post-traumatic stress disorder) F43.10 [place] [id number] [place] [address] 68309- 1858 Apr, Onychocryptosis L60.0 and Onychomycosis B35.1 [place] [id number] [place] [address] 16557- 5471 Apr, IBS (irritable bowel syndrome) K58.9 ; COPD (chronic obstructive pulmonary disease) J44.9 ; History of herniated intervertebral disc Z87.39 ; HTN (hypertension) I10 ; Chronic pain G89.29 ; Anxiety F41.9 ; Depression F32.9 ; Parkinsons G20 ; Hypercholesteremia E78.0 and Hemorrhoid K64.9 [id number] [address]- 9965 Mar, [facility] [id number] [place] [address] 93587- 3686 Mar, Major depressive disorder, recurrent episode, severe F33.2 and Posttraumatic stress disorder F43.10 [facility] [address] [place] [address] 07088- 9376 Mar, [facility] [id number] [place] [address] 30279- 4396 Mar, [facility] [id number] [place] [address] 19822- 7711 Mar, PTSD (post-traumatic stress disorder) F43.10 [place] [id number] [place] [address] 67665- 5296 Mar, Onychomycosis B35.1 and Hypertension, benign I10 [facility] [id number] [place] [address] 70192- 3654 Mar, Onychomycosis B35.1 and Hypertension, benign I10 [facility] [id number] [place] [address] 86033- 3992 Feb, PTSD (post-traumatic stress disorder) F43.10 [place] [address] [address]- 8082 Feb, [facility] [id number] [place] [address] 87690- 9954 Feb, Major depressive disorder, recurrent episode, severe F33.2 and Posttraumatic stress disorder F43.10 [facility] [address] [place] [address] 013256- 2476 Jan, PTSD (post-traumatic stress disorder) F43.10 [facility] [address] [address]- 2586 Jan, Rash R21 [facility] [id number] [place] [address] 26786- 3168 Jan, PTSD (post-traumatic stress disorder) F43.10 [facility] [address], [place] [address]- 3629 Jan, [facility] [id number] [place] [address] 14613- 9759 Dec, Neuropathy 355.9 [facility] [id number] [place] [address] 12648- 8560 Dec, PTSD (post-traumatic stress disorder) F43.10 [facility] [address] [place] [address] 81325- 5029 29 Dec, 2014 MDD (major depressive disorder), recurrent episode, severe 296.33 and PTSD (post-traumatic stress disorder) 309.81 [facility] [id number] [place] [address] 17053- 7032 Dec, [facility] [id number] [place] [address] 27071- 8732 Dec, Ingrown toenail 703.0 [facility] [id number] [place] [address] 25949- 8670 02 Dec, 2014 Posttraumatic stress disorder 309.81 [facility] [address] [place] [address] 85315- 9561 Nov, Depressive disorder, not elsewhere classified 311 and Anxiety state, unspecified 300.00 [facility] [address] [place] [address] 86919- 5121 Oct, Depressive disorder, not elsewhere classified 311 and Anxiety state, unspecified 300.00 [facility] [address] [place] [address] 74588- 6857 Oct, Depressive disorder, not elsewhere classified 311 ; Anxiety state, unspecified 300.00 and No condition on Clemons II V71.09 [facility] [id number] [id number] Oct, Dental examination V72.2 [facility] [id number] [address]- 8907 Oct, [facility] [address] [facility] [id number] [address]- 9062 August, [facility] [address] [address]- 6778 August, Seizure 780.39 and IBS (irritable bowel syndrome) 564.1 [facility] [place] [facility] [address] [facility] [id number] [address]- 5047 Jul, [facility] [address] [facility] [id number] [place] [address]- 5976 Jul, [facility] [id number] [address]- 5974 Jun, [facility] [address], [place] [address]- 9156 Jun, [facility] [id number] [address]- 3241 Jun, [facility] [id number] [address]- 0975 Jun, [facility] [id number] [address]- 7946 Jun, [facility] [address], [place] [address]- 5383 Jun, [facility] [place] [facility] [address] [facility] [id number], [place] [address]- 5439 Jun, [facility] [address] [facility] [id number] [place] [address]- 2716 Jun, [facility] [address] [facility] [id number] [address]- 6749 Jun, [facility] [address] [facility] [id number] [address]- 5786 Jun, [facility] [address] [facility] [id number] [place] [address]- 8156 2014 [facility] [address] [id number] [place] [address]- 1346 Jun, [facility] [place] [facility] [address] [id number] [place] [address]- 7006 May, [facility] [address] [id number] [place] [address]- 4426 May, [facility] [place] [facility] [address] [id number] [place] [address]- 3021 Apr, [facility] [address] [id number] [place] [address]- 3985 Apr, [facility] [address] [id number] [place] [address]- 5257 Mar, [facility] [address] [id number] [place] [address]- 9442 Mar, [facility] [address] [id number] [place] [address]- 3613 Mar, [facility] [address] [id number] [place] [address]- 8735 Mar, [facility] [address] [id number] [place] [address]- 7000 Mar, [facility] [place] [facility] [address] [id number] [place] [address]- 2545 Mar, [facility] [place] [facility] [address] [id number] [place] [address]- 2542 Mar, [facility] [place] [facility] [address] [id number] [place] [address]- 6157 Mar, [facility] [place] [facility] [address] [id number] [place] [address]- 6386 Mar, [facility] [place] [facility] [address] [id number] [place] [address]- 7915 Mar, [facility] [place] [facility] [address] [id number] [place] [address]- 5271 Mar, [facility] [place] [facility] [address] [id number] [place] [address]- 1831 Mar, [facility] [place] [facility] [address] [id number] [place] 8094 Mar, [facility] [place] [facility] [address] [id number] [place] [address]- 8968 Mar, [facility] [place] [facility] [address] [id number] [place] [address]- 7394 Mar, [facility] [place] [facility] [address] [id number] [place] [address]- 0445 Mar, [facility] [place] [facility] [address] [id number] [place] [address]- 8662 Mar, [facility] [place] [facility] [address] [id number] [place] [address] Mar, [facility] [place] [facility] [address] [id number] [place] [address] Mar, [facility] [place] [facility] [address] [id number] [place] [address] Feb, [facility] [place] [facility] [address] [id number] [place] [address] Feb, [facility] [place] [facility] [address] [id number] [address] Feb, [facility] [place] [facility] [address] [id number] [place] [address] Feb, [facility] [place] [facility] [address] [id number] [place] [address] Feb, [facility] [place] [facility] [address] [id number] [address] Feb, [facility] [place] [facility] [address] [id number], [place] [address] Feb, [facility] [place] [facility] [address] [id number] [place] [address] 14 Feb, 2014 [facility] [place] [facility] [address] [id number] [place] [address] Jan, [facility] [place] [facility] [address] [id number] [place] [address] Jan, [facility] [place] [facility] [address] [id number] [place] [address] Nov, [facility] [place] [facility] [address] [id number] [place] [address] Nov, [facility] [place] [facility] [address] [id number] [place] [address] Oct, [facility] [place] [facility] [address] [id number] [place] [address]- [address] Oct, [facility] [place] [facility] [address] [id number] [place] [address]- [address] Oct, [facility] [place] [facility] [address] [id number] [place] [address] Oct, [facility] [place] [facility] [address] [id number] [place] [address] Oct, [facility] [place] [facility] [address] [id number] [place] [address]- [address] Sep, [facility] [place] [facility] [address] [id number] [place] [address] Sep, [facility] [place] [facility] [address] [id number] [place] [address] August, [facility] [place] [facility] [address] [id number] [place] [address] August, [facility] [place] [facility] [address] [id number] [place] [address] Jun, [facility] [place] [facility] [address] [id number] [place] [address] 24 Jun, 2013 [facility] [place] [facility] [address] [id number] [place] [address] 11 Jun, 2013 [facility] [place] [facility] [address] [id number] [place] [address] Jun, [facility] [place] [facility] [address] [id number] [place] [address] 10 Jun, 2013 [facility] [place] [facility] [address] [id number] [place] [address] 10 Jun, 2013 [facility] [place] [facility] [address] [id number] [place] [address] 07 Jun, 2013 [facility] [place] [facility] [address] [id number] [place] [address] Jun, [facility] [place] [facility] [address] [id number] [place] [address] Jun, [facility] [place] [facility] [address] [id number] [place] [address] 07 Jun, 2013 [facility] [place] [facility] [address] [id number] [place] [address] 04 Jun, 2013 [facility] [place] [facility] [address] [id number] [place] [address] 04 Jun, 2013 [facility] [place] [facility] [address] [id number] [place] [address] Jun, [facility] [place] [facility] [address] [id number] [place] [address] Jun, [facility] [place] [facility] [address] [id number] [place] [address] May, [facility] [place] [facility] [address] [id number] [place] [address] 6[address] May, [facility] [place] [facility] [address] [id number] [place] [address] 1418 Apr, [facility] [place] [facility] [address] [id number] [place] [address] 98[address] Apr, [facility] [place] [facility] [address] [id number] [place] [address] Mar, [facility] [place] [facility] [address] [facility] [id number] [place] [address] Mar, [facility] [place] [facility] [address] [id number] [place] [address] 89[address] Feb, [facility] [place] [facility] [address] [id number] [place] [address] 5673 Feb, [facility] [place] [facility] [address] [id number] [place] [address] 8549 Feb, [facility] [place] [facility] [address] [id number] [place] [address] 4964 Feb, [facility] [place] [facility] [address] [id number], [place] [address] Feb, [facility] [place] [facility] [address] [id number], [place] [address] Feb, [facility] [place] [facility] [address] [id number], [place] [address] 23[address] Feb, [facility] [place] [facility] [address] [id number], [place] [address] Jan, [facility] [place] [facility] [address] [id number], [place] [address] Jan, [facility] [place] [facility] [address] [id number], [place] [address] 6[address] Dec, [facility] [place] [facility] [address] [id number], [place] [address] Dec, [facility] [place] [facility] [address] [id number], [place] [address] 25[address] Nov, [facility] [place] [facility] [address] [id number] [place] [address] 1467 Nov, [facility] [address] [id number] [place] [address] 66[address] Oct, [facility] [place] [facility] [address] [id number] [place] [address] Sep, [facility] [address] [id number] [place] [address]15 Sep, [facility] [place] [facility] [address] [id number] [place] [address] 9474 August, [facility] [address] [id number] [place] [address] 99[address] August, [facility] [place] [facility] [address] [id number] [place] [address] 6[address] August, [facility] [address] [id number] [place] [address] 1395 Jul, [facility] [address] [id number] [place] [address] May, [facility] [address] [facility] [id number] [place] [address] 6926 May, [facility] [address] [facility] [id number] [place] [address]- 5984 Apr, [facility] [place] [facility] [address] [id number] [place] [address] 7056 Apr, [facility] [address] [id number] [place] [address] 4780 Feb, [facility] [place] [facility] [address] [id number] [place] [address] 8420 Feb, [facility] [place] [facility] [address] [id number] [place] [address] 8285 Jan, [facility] [place] [facility] [address] [id number] [place] [address] 4024 Jan, [facility] [place] [facility] [address] [id number] [place] [address]- 5925 Jan, [facility] [place] [facility] [address] [id number] [place] [address] 4339 Nov, [facility] [place] [facility] [address] [id number] [place] [address]- 1282 Nov, [facility] [place] [facility] [address] [id number] [place] [address]- 5828 Nov, [facility] [place] [facility] [address] [id number] [place] [address]- 1808 Nov, [facility] [place] [facility] [address] [id number] [place] [address]- 8523 Nov, [facility] [place] [facility] [address] [id number] [place] [address]- 3924 Oct, [facility] [place] [facility] [address] [id number] [place] [address]- 7821 Oct, [facility] [place] [facility] [address] [id number] [place] [address] 8663 Oct, [facility] [place] [facility] [address] [id number] [place] [address]- 2440 Oct, [facility] [place] [facility] [address] [id number] [place] [address]- 1051 Oct, [facility] [place] [facility] [address] [id number] [place] [address]- 1527 Oct, [facility] [place] [facility] [address] [id number] [place] [address] 7134 Oct, [facility] [place] [facility] [address] [id number] [place] [address]- 5708 Sep, [facility] [place] [facility] [address] [id number] [place] [address]- 3912 Sep, [facility] [place] [facility] [address] [id number], [place] [address]70 Sep, [facility] [address] [id number] [place] [address]- 1659 August, [facility] [place] [facility] [address] [id number] [place] [address]- 7372 30 Jul, 2011 [facility] [address] [id number] [place] [address]- 8837 Jul, [facility] [place] [facility] [address] [id number] [place] [address]- 4270 Jul, [facility] [address] [id number] [place] [address]- 0976 Jul, [facility] [place] [facility] [address] [id number] [place] [address]- 4315 Jul, [facility] [address] [id number] [place] [address]- 2926 Jun, [facility] [place] [facility] [address] [id number] [place] [address]- 0387 May, [facility] [address] [id number] [place] [address]- 4418 Apr, [facility] [place] [facility] [address] [id number] [place] [address]- 0100 Apr, [facility] [address] [id number] [place] [address]- 4967 Apr, [facility] [place] [facility] [address] [id number] [place] [address]- 6301 Apr, [facility] [place] [facility] [address] [id number] [place] [address]- 4839 Apr, [facility] [place] [facility] [address] [id number] [place] [address]- 9592 Apr, [facility] [place] [facility] [address] [id number] [place] [address]- 7074 Mar, [facility] [place] [facility] [address] [id number] [place] [address]- 5264 06 Mar, 2011 [facility] [place] [facility] [address] [id number] [place] [address]- 6679 Feb, [facility] [place] [facility] [address] [id number] [place] [address]- 1161 Nov, [facility] [place] [facility] [address] [id number] [place] [address]- 3257 Jun, [facility] [place] [facility] [address] [id number] [place] [address]- 4951 Apr, [facility] [place] [facility] [address] [id number] [place] [address]- 3705 Feb, [facility] [place] [facility] [address] [id number] [place] [address]- 0626 Jan, [facility] [place] [facility] [address] [id number] [place] [address]- 3521 Jan, [facility] [place] [facility] [address] [id number] [place] [address]- 7957 Jan, [facility] [place] [facility] [address] [id number] [place] [address]- 9753 Jan, [facility] [place] [facility] [address] [id number] [place] [address]- 1691 Nov, [facility] [place] [facility] [address] [id number] [place] [address]- 6587 Nov, [facility] [place] [facility] [address] [id number] [place] [address]- 6567 Mar, [facility] [place] [facility] [address] [id number] [place] [address]- 4458 Mar, [facility] [place] [facility] [address] [id number] [place] [address] 1974 Feb, [facility] [place] [facility] [address] [id number] [place] [address] 2697 Feb, [facility] [address] [facility] [id number] [place] [address]- 7736 Jan, [facility] [address] [facility] [id number] [place] [address]- 2546 May, IMMUNIZATIONS No Known Immunizations SOCIAL HISTORY Never Assessed REASON FOR VISIT F/U and med refills- Shirin ISABEL, random dizzy spells and heart flutters PLAN OF CARE Activity Details Follow Up 6 Months Reason: VITAL SIGNS Height 64 in 2017-01-22 Weight 155.6 lbs 2017-01-22 Temperature 98.7 degrees Fahrenheit 2017-01-22 Heart Rate 82 bpm 2017-01-22 Respiratory Rate 18 2017-01-22 BMI 26.71 kg/m2 2017-01-22 Blood pressure systolic 142 mmHg 2017-01-22 Blood pressure diastolic 76 mmHg 2017-01-22 MEDICATIONS Medication Instructions Dosage Frequency Start Date End Date Duration Status Zocor 20 mg Orally Once a day 1 tablet in the evening 24h 30 days Active HydrOXYzine Pamoate 25 MG Orally at bedtime as needed for anxiety and sleep 1 or 2 capsule as needed August, Active Gabapentin 800 MG Orally 3 times a day TAKE ONE CAPSULE BY MOUTH THREE TIMES DAILY 8h 30 days Active Hydrochlorothiazide 12.5 MG Orally Once a day 1 tablet in the morning 24h 90 days Active Verapamil HCl ER 180MG TAKE ONE TABLET BY MOUTH ONCE DAILY 30 Active Celexa 20 mg Orally Once a day 1 tablet 24h Apr, Active RESULTS No Results PROCEDURES Procedure Date Ordered Result Body Site [facility] VISIT ESTABLISHED PATIENT Jan 22, 2017 INSTRUCTIONS MEDICATIONS ADMINISTERED No Known Medications [...]
--- OUTSIDE RECORDS SUMMARY | 2018-03-25 15:19 | XMS REPORT ---
Author MARYANA Deng [facility] eClinicalWorks Address Unknown Phone Unavailable Care Team Providers Care Hoop Coiler Name Role Phone MARYANA ROJO CP Unavailable Allergies No Known Allergies Problems Problem Type Condition Code Onset Dates Condition Status Problem Posttraumatic stress disorder F43.10 Active Problem Parkinsons G20 Active Problem Major depressive disorder, recurrent episode, severe F33.2 Active Problem ZOSTAVAX DX V05.8 Active Problem PTSD (post-traumatic stress disorder) F43.10 Active Problem COPD (chronic obstructive pulmonary disease) J44.9 Active Problem History of herniated intervertebral disc Z87.39 Active Problem IBS (irritable bowel syndrome) K58.9 Active Problem Anxiety F41.9 Active Problem Depression F32.9 Active Problem HTN (hypertension) I10 Active Problem Chronic pain G89.29 Active Medications No Known Medications Results No Known Results Summary Purpose eClinicalWorks Submission
--- OUTSIDE RECORDS SUMMARY | 2018-03-25 15:19 | XMS REPORT ---
Author Author MARYANA ROJO Organization [facility] Address [address] [place] [address] Care Team Providers Care Motor Generator Set Operator Name Role Phone DARREL MARYANA Unavailable PROBLEMS Type Condition ICD9-CM Code [id number] Code Onset Dates Condition Status SNOMED Code Problem Chronic pain G89.29 Active 60601627 Problem History of herniated intervertebral disc Z87.39 Active 269705192 Problem HTN (hypertension) I10 Active 75532839 Problem Dizziness R42 Active 836741772 Problem Annular psoriasis L40.8 Active 524015407 Problem IBS (irritable bowel syndrome) K58.9 Active 31271801 Problem COPD (chronic obstructive pulmonary disease) J44.9 Active 81835968 Problem Moderate episode of recurrent major depressive disorder F33.1 Active 081385162 Problem Impacted cerumen, unspecified laterality H61.20 Active 07968605 Assessment Dizziness R42 Dec, Active 157969909 Problem ZOSTAVAX DX V05.8 Active 92130683 Assessment Hypercholesterolemia E78.0 Dec, Active 97032471 Assessment Posttraumatic stress disorder F43.10 Dec, Active 89054051 Problem Major depressive disorder in partial remission F32.4 Active 58462561 Problem Parkinsons G20 Active 88901668 Problem PTSD (post-traumatic stress disorder) F43.10 Active 79554341 Problem Depression F32.9 Active 59176120 Problem Major depressive disorder, recurrent episode, severe F33.2 Active 389068392790 Problem Anxiety F41.9 Active 83591500 ALLERGIES Substance Reaction Event Type Date Status Latex Unknown Drug Allergy Dec, Active SOCIAL HISTORY No smoking Hx information available PLAN OF CARE VITAL SIGNS Height 64 in 2016-01-21 Weight 155.9 lbs 2016-01-21 Heart Rate 78 bpm 2016-01-21 Respiratory Rate 18 2016-01-21 BMI 26.76 kg/m2 2016-01-21 Blood pressure systolic 120 mmHg 2016-01-21 Blood pressure diastolic 70 mmHg 2016-01-21 MEDICATIONS Medication Instructions Dosage Frequency Start Date End Date Duration Status Colestid 5 GM Orally 4 times a day 1 packet mixed with water or non- carbonated drink 6h Oct, Active Acidophilus 100 MG Orally Once a day 1 24h Active Neurontin 300 MG Orally 4 times a day 1 capsule 6h Nov, 30 day( s) Active Cymbalta 60MG Orally Once a day 1 capsule 24h 30 Active Indomethacin 25 MG Orally Three times a day 1 capsule with food 8h 30 Active Bentyl 10 mg Orally Four times a day 1 capsule 6h Active Verapamil HCl CR 180 MG orally once daily TAKE ONE TABLET BY MOUTH ONCE DAILY 24h Active Simvastatin 40 MG Orally Once a day 1 tablet in the evening 24h 30 Active Hydrochlorothiazide 25 MG Orally Once a day 1 tablet 24h 30 Active Clonazepam 0.5 MG Orally TAKE ONE TABLET BY MOUTH ONCE DAILY IN THE AFTERNOON 1 tablet Active RESULTS Name Result Date Reference Range TSH 2016-01-21 TSH 1.960 0.450-4.500 CBC 2016-01-21 WBC 11.7 3.4-10.8 RBC 5.03 3.77-5.28 Hemoglobin 13.5 11.1-15.9 Hematocrit 40.5 34.0-46.6 MCV 81 79-97 MCH 26.8 26.6-33.0 MCHC 33.3 31.5-35.7 RDW 15.3 12.3-15.4 Platelets 382 150-379 Neutrophils 58 Lymphs 29 Monocytes 7 Eos 6 Basos 0 Immature Cells Neutrophils (Absolute) 6.9 1.4-7.0 Lymphs (Absolute) 3.3 0.7-3.1 Monocytes(Absolute) 0.8 0.1-0.9 Eos (Absolute) 0.6 0.0-0.4 Baso (Absolute) 0.1 0.0-0.2 Immature Granulocytes 0 Immature Grans (Abs) 0.0 0.0-0.1 [facility] Hematology Comments: LIPID PANEL 2016-01-21 Cholesterol, Total 190 100-199 Triglycerides 173 0-149 HDL Cholesterol 53 >39 VLDL Cholesterol Michi 35 5-40 LDL Cholesterol Calc 102 0-99 Comment: CMP 2016-01-21 Glucose, Serum 87 65-99 BUN 20 8-27 Creatinine, Serum 0.78 0.57-1.00 eGFR If NonAfricn Am 81 >59 eGFR If Africn Am 93 >59 BUN/Creatinine Ratio 22 03-26 Sodium, Serum 143 134-144 Potassium, Serum 4.4 3.5-5.2 Chloride, Serum 100 97-108 Carbon Dioxide, Total 30 18-29 Calcium, Serum 10.3 8.7-10.3 Protein, Total, Serum 6.8 6.0-8.5 Albumin, Serum 4.3 3.6-4.8 Globulin, Total 2.5 1.5-4.5 A/G Ratio 1.7 1.1-2.5 Bilirubin, Total 0.2 0.0-1.2 Alkaline Phosphatase, S 129 39-117 AST (SGOT) 11 0-40 ALT (SGPT) 11 0-32 PROCEDURES Procedure Date Ordered Related Diagnosis Body Site COMPLETE CBC W/AUTO DIFF WBC Jan 21, 2016 COMPREHEN METABOLIC PANEL Jan 21, 2016 ASSAY THYROID STIM HORMONE Jan 21, 2016 LIPID PANEL Jan 21, 2016 VENIPUNCT, ROUTINE* Jan 21, 2016 Office Visit, Est Pt., Level 4 Jan 21, 2016 IMMUNIZATIONS No Known Immunizations
--- OUTSIDE RECORDS SUMMARY | 2018-03-25 15:19 | XMS REPORT ---
Author MILLER Thomson [facility] eClinicalWorks Address Unknown Phone Unavailable Care Team Providers Care Assembler Faucets Name Role Phone MILLER FLORES CP Unavailable Allergies No Known Allergies Problems Problem Type Condition Code Onset Dates Condition Status Problem Major depressive disorder, recurrent episode, severe F33.2 Active Problem Parkinsons G20 Active Problem Major depressive disorder in partial remission F32.4 Active Problem COPD (chronic obstructive pulmonary disease) J44.9 Active Problem History of herniated intervertebral disc Z87.39 Active Problem IBS (irritable bowel syndrome) K58.9 Active Problem Anxiety F41.9 Active Problem Depression F32.9 Active Problem HTN (hypertension) I10 Active Problem Chronic pain G89.29 Active Problem ZOSTAVAX DX V05.8 Active Problem PTSD (post-traumatic stress disorder) F43.10 Active Problem Posttraumatic stress disorder F43.10 Active Medications Medication Code System Code Instructions Start Date End Date Status Dosage Clonazepam [facility] [address]-52 0.5 MG Orally TAKE ONE TABLET BY MOUTH ONCE DAILY IN THE AFTERNOON for anxiety 1 tablet Results No Known Results Summary Purpose eClinicalWorks Submission
--- OUTSIDE RECORDS SUMMARY | 2018-03-25 15:19 | XMS REPORT ---
Author JOÃO Boone eClinicalWorks Address Unknown Phone Unavailable Care Team Providers Care Gateman Name Role Phone OJÃO MELGAR Unavailable Allergies No Known Allergies Problems [...] patient &/family, 45 minutes, established patient CPT-4 [id number] Feb 07, 2015 Results No Known Results Summary Purpose eClinicalWorks Submission
--- OUTSIDE RECORDS SUMMARY | 2018-03-25 15:20 | XMS REPORT ---
Author Author MARYANA ROJO Organization [facility] Address [address] [place] [address] Care Team Providers Care Social Psychologist Name Role Phone RANGEL ROJONETTE Unavailable PROBLEMS Type Condition ICD9-CM Code AUN08-TG Code Onset Dates Condition Status SNOMED Code Problem IBS (irritable bowel syndrome) K58.9 Active 34522332 Problem Moderate episode of recurrent major depressive disorder F33.1 Active 719119436 Problem Impacted cerumen, unspecified laterality H61.20 Active 09988436 Problem Irritable bowel syndrome with diarrhea K58.0 Active 941085319 Problem ZOSTAVAX DX V05.8 Active 21471394 Problem Second degree hemorrhoids K64.1 Active 91386493 Problem Dizziness R42 Active 651495032 Problem Annular psoriasis L40.8 Active 426377150 Problem Eczema of both hands L30.9 Active 537296012 Problem Hypertriglyceridemia E78.1 Active 456799009 Problem Major depressive disorder in partial remission F32.4 Active 13195022 Problem COPD (chronic obstructive pulmonary disease) J44.9 Active 01215554 Problem PTSD (post-traumatic stress disorder) F43.10 Active 51928453 Problem Major depressive disorder, recurrent episode, severe F33.2 Active 426818426770 Problem Anxiety F41.9 Active 62931133 Problem Chronic pain G89.29 Active 14054244 Problem HTN (hypertension) I10 Active 46269721 Problem History of herniated intervertebral disc Z87.39 Active 067753724 Problem Depression F32.9 Active 09322693 Problem Parkinsons G20 Active 79198631 ALLERGIES Substance Reaction Event Type Date Status Latex Unknown Drug Allergy Mar, Active SOCIAL HISTORY No smoking Hx information available PLAN OF CARE Activity Details Follow Up 3 Months Reason:ibs VITAL SIGNS Height 64 in 2016-04-22 Weight 157.5 lbs 2016-04-22 Temperature 98.2 degrees Fahrenheit 2016-04-22 Heart Rate 80 bpm 2016-04-22 Respiratory Rate 18 2016-04-22 BMI 27.03 kg/m2 2016-04-22 Blood pressure systolic 118 mmHg 2016-04-22 Blood pressure diastolic 76 mmHg 2016-04-22 MEDICATIONS Medication Instructions Dosage Frequency Start Date End Date Duration Status Neurontin 400 MG Orally 3 times a day 1 capsule 8h Active Indomethacin 25 MG Orally Three times a day 1 capsule with food 8h Active Verapamil HCl CR 180 MG orally once daily TAKE ONE TABLET BY MOUTH ONCE DAILY 24h Active Clonazepam 0.5 MG Orally TAKE ONE TABLET BY MOUTH ONCE DAILY IN THE AFTERNOON 1 tablet Active Cymbalta 60MG Orally Once a day 1 capsule 24h Active Fish Oil 1000 MG Orally Once a day 1 capsule 24h Mar, Apr, 30 day(s) Active Acidophilus 100 MG Orally Once a day 1 24h Active RESULTS Name Result Date Reference Range CBC 2016-04-22 WBC 8.5 3.4-10.8 RBC 4.78 3.77-5.28 Hemoglobin 12.7 11.1-15.9 Hematocrit 38.1 34.0-46.6 MCV 80 79-97 MCH 26.6 26.6-33.0 MCHC 33.3 31.5-35.7 RDW 15.6 12.3-15.4 Platelets 380 150-379 Neutrophils 50 Lymphs 38 Monocytes 8 Eos 4 Basos 0 Immature Cells Neutrophils (Absolute) 4.2 1.4-7.0 Lymphs (Absolute) 3.2 0.7-3.1 Monocytes(Absolute) 0.7 0.1-0.9 Eos (Absolute) 0.4 0.0-0.4 Baso (Absolute) 0.0 0.0-0.2 Immature Granulocytes 0 Immature Grans (Abs) 0.0 0.0-0.1 [facility] Hematology Comments: LIPID PANEL 2016-04-22 Cholesterol, Total 287 100-199 Triglycerides 173 0-149 HDL Cholesterol 45 >39 VLDL Cholesterol Michi 35 5-40 LDL Cholesterol Calc 207 0-99 Comment: CMP 2016-04-22 Glucose, Serum 115 65-99 BUN 19 8-27 Creatinine, Serum 0.65 0.57-1.00 eGFR If NonAfricn Am 94 >59 eGFR If Africn Am 109 >59 BUN/Creatinine Ratio 29 11-26 Sodium, Serum 144 134-144 Potassium, Serum 4.0 3.5-5.2 Chloride, Serum 101 96-106 Carbon Dioxide, Total 24 18-29 Calcium, Serum 9.2 8.7-10.3 Protein, Total, Serum 6.3 6.0-8.5 Albumin, Serum 4.0 3.6-4.8 Globulin, Total 2.3 1.5-4.5 A/G Ratio 1.7 1.1-2.5 Bilirubin, Total 0.3 0.0-1.2 Alkaline Phosphatase, S 127 39-117 AST (SGOT) 11 0-40 ALT (SGPT) 8 0-32 PROCEDURES Procedure Date Ordered Related Diagnosis Body Site Office Visit, Est Pt., Level 3 Apr 22, 2016 COMPLETE CBC W/AUTO DIFF WBC Apr 22, 2016 LIPID PANEL Apr 22, 2016 COMPREHEN METABOLIC PANEL Apr 22, 2016 VENIPUNCT, ROUTINE* Apr 22, 2016 IMMUNIZATIONS No Known Immunizations
--- OUTSIDE RECORDS SUMMARY | 2018-03-25 15:20 | XMS REPORT ---
Author MILLER Thomson [facility] eClinicalWorks Address Unknown Phone Unavailable Care Team Providers Care Compo Caster Name Role Phone MILLER FLORES CP Unavailable [...] Active Problem Chronic pain G89.29 Active Medications Medication Code System Code Instructions Start Date End Date Status Dosage Clonazepam [facility] [address]-29 0.5 MG TAKE ONE TABLET BY MOUTH ONCE DAILY IN THE AFTERNOON Results No Known Results Summary Purpose eClinicalWorks Submission
--- OUTSIDE RECORDS SUMMARY | 2018-03-25 15:20 | XMS REPORT ---
Author MILLER Thomson [employer] Address Unknown Phone Unavailable Care Team Providers Care Associate Name Role Phone MILLER FLORES CP Unavailable Allergies, Adverse Reactions, Alerts Substance [...] Active Problem Irritable bowel syndrome 564.1 Active Assessment Major depressive disorder, recurrent episode, severe F33.2 Active Problem PTSD (post-traumatic stress disorder) F43.10 Active Assessment Posttraumatic stress disorder F43.10 Active Problem Palpitations 785.1 Active Problem [...] Instructions Start Date End Date Status Dosage Hydrochlorothiazide [facility] [address]-10 25 MG Orally Once a day [address] [facility] [address]-66 100 MG Orally Once a day 1 capsule as needed MiraLax [facility] [address]-43 17 gram/dose July 07, 2014 take 8.5 g mixed with 8 oz. water or juice by Oral route 1 time per day Cymbalta [facility] 65452816852 60MG Orally Once a day 1 capsule Hyoscyamine Sulfate CR [facility] 99409902161 0.375 MG Orally every 12 hrs [address] [facility] 32779836075 0.5 MG TAKE ONE TABLET BY MOUTH ONCE DAILY IN THE AFTERNOON Carbidopa-Levodopa [facility] [address]-64 10-100 mg Jun 09, 2014 1 tablet by Oral route 3 times per day verapamil ND 0 180 mg 1 ERC orally once a day July 14, 2014 1 Tablet by Oral route 1 time per day take one tablet by mouth daily Indomethacin [facility] 64373000566 25 MG Orally Three times a day 1 capsule with food Trazodone HCl [facility] [address]-52 50 MG Orally Take 1/2 -1 tab at bedtime as needed for insomnia Jan 23, [address] [facility] 66306025205 100 MG Orally Once a day [address] [facility] [address]-60 40 MG Orally Once a day 1 tablet in the evening Neurontin [facility] [address]-96 400 MG Orally 3 times a day 1 capsule Procedures Procedure Coding System Code Date Psychotherapy, patient &/family, with E&M, 30 minutes, established patient CPT -4 81421 Apr 17, 2015 Office Visit, Est Pt., Level 3 CPT-4 99756 Apr 17, 2015 Vital Signs Date/Time: Apr 17, 2015 Cardiac Monitoring Heart Rate 88 bpm Weight 156.4 lbs Height 64 in BMI 26.84 Index Blood Pressure Diastolic 60 mmHg Blood Pressure Systolic 130 mmHg Results No Known Results Summary Purpose [employer] Submission
--- OUTSIDE RECORDS SUMMARY | 2018-03-25 15:20 | XMS REPORT ---
Author MILLER Thomson [facility] e[employer] Address Unknown Phone Unavailable Care Team Providers Care Automotive Worker Name Role Phone MILLER FLORES CP Unavailable [...] Instructions Start Date End Date Status Dosage Cymbalta [facility] 68458605165 60MG Orally Once a day 1 capsule Clonazepam [facility] 44450210158 0.5 MG TAKE ONE TABLET BY MOUTH ONCE DAILY IN THE AFTERNOON Trazodone HCl [facility] [address]-28 50 MG Orally Take 1/2 -1 tab at bedtime as needed for insomnia Jan 23, 2015 1 tablet Results No Known Results Summary Purpose [employer]ClinicalWorks Submission
--- OUTSIDE RECORDS SUMMARY | 2018-03-25 15:20 | XMS REPORT ---
Author Author NAYA JACKSON Organization [facility] Address [facility] [place] [address] Care Team Providers Care Human Service Coordinator Name Role Phone NAYA JACKSON Unavailable PROBLEMS Type Condition ICD9-CM Code QHN99-VO Code Onset Dates Condition Status SNOMED Code Problem Hypertriglyceridemia E78.1 Active 142035703 Problem Other chronic pain G89.29 Active 96780118 Problem Cervical disc disease M50.90 Active 978257612 Problem Major depressive disorder, single episode, mild F32.0 Active 14746063 Problem Irritable bowel syndrome with diarrhea K58.0 Active 246363538 Problem Paresthesia of bilateral legs R20.2 Active 452007175 Problem Ulcerative pancolitis without complication K51.00 Active 697190317 Problem Abnormal mammogram R92.8 Active 816875177 Problem Polyneuropathy G62.9 Active 36910965 Problem PTSD (post-traumatic stress disorder) F43.10 Active 51227555 Problem Major depressive disorder, recurrent episode, severe F33.2 Active 813467911619 Problem HTN (hypertension) I10 Active 77492245 Problem Depression F32.9 Active 44371184 Problem Parkinsons G20 Active 03720068 Problem Anxiety F41.9 Active 78702475 Problem COPD (chronic obstructive pulmonary disease) J44.9 Active 34499009 Problem Annular psoriasis L40.8 Active 759491939 ALLERGIES No Information ENCOUNTERS Encounter Location Date Diagnosis [facility] [id number], [place] [address] Sep, Medicare annual wellness visit, initial Z00.00 [facility] [id number], [place] [address] Sep, [facility] [id number], [place] [address] 8[address] Sep, [facility] [id number] [place] [address] 37901- 1016 Sep, Major depressive disorder, single episode, mild F32.0 ; PTSD (post-traumatic stress disorder) F43.10 and Edema of both legs R60.0 [address] [place] [address] August, Localized edema R60.0 [place] [id number] [place] [address] 85130- 8933 August, Localized edema R60.0 ; Weight gain R63.5 and Irritable bowel syndrome with diarrhea K58.0 [place] [id number] [place] [address] 583720- 0399 Jul, [place] [id number] [place] [address] 27307- 5815 Jul, Elevated liver enzymes R74.8 [place] [id number] [place] [address] 20375- 7488 Jul, Polyneuropathy G62.9 [place] [id number] [place] [address] 22805- 8894 Jul, [place] [id number] [place] [address] 60011- 5167 Jul, Cervical disc disease M50.90 [place] [id number] [place] [address] 32442- 8219 Jul, Elevated liver enzymes R74.8 [place] [id number] [place] [address] 90832- 3719 Jul, Polyneuropathy G62.9 ; Ulcerative pancolitis without complication K51.00 ; Depression F32.9 ; Leg weakness, bilateral R29.898 and Paresthesia of bilateral legs R20.2 [place] [address] [place] [address] 35541- 5294 Jul, Polyneuropathy G62.9 ; Ulcerative pancolitis without complication K51.00 ; Depression F32.9 ; Leg weakness, bilateral R29.898 and Paresthesia of bilateral legs R20.2 [place] [id number] [place] [address] 44128- 1753 Jun, [place] [id number] [place] [address] Jun, Fibrous breast lumps N63.0 [place] [address] 27835- 8955 Jun, Ulcerative pancolitis without complication K51.00 [place] [id number] [place] [address] 78022- 7541 Jun, Abnormal mammogram R92.8 [place] [address] 72543- 1769 Jun, Breast density R92.2 [place] [address] 55185- 8035 Jun, [place] [id number] [place] [address] 25193- 6196 Jun, PTSD (post-traumatic stress disorder) F43.10 [place] [id number] [place] [address] 77509- 8278 May, [place] [id number] [place] [address] 29578- 8685 May, Breast cancer screening Z12.31 and Fibrous breast lumps N63.0 [place] [id number] [place] [address] 66641- 9839 Apr, Ulcerative pancolitis without complication K51.00 [place] [id number] [place] [address] 02662- 6573 Apr, [place] [id number] [place] [address] 40529- 4966 Apr, Ulcerative pancolitis without complication K51.00 ; Low back pain M54.5 and Other chronic pain G89.29 [place] [id number] [place] [address] 64980- 2130 28 Dec, 2016 Cervical disc disease M50.90 and HTN (hypertension) I10 [place] [id number] [place] [address] 60733- 9583 05 Dec, 2016 Moderate episode of recurrent major depressive disorder F33.1 and PTSD (post-traumatic stress disorder) F43.10 [place] [id number] [place] [address] 96262- 1624 Oct, [address] [id number] [place] [address] 20493- 6013 Oct, Irritable bowel syndrome with diarrhea K58.0 [place] [id number] [place] [address] 98883- 0987 Oct, Irritable bowel syndrome with diarrhea K58.0 [place] [id number] [place] [address] 12991- 3346 Sep, Diarrhea, unspecified type R19.7 ; Chronic pain G89.29 ; Hypertriglyceridemia E78.1 ; PTSD (post-traumatic stress disorder) F43.10 ; History of herniated intervertebral disc Z87.39 and Depression F32.9 [place] [id number] [place] [address] 29471- 8597 August, Moderate episode of recurrent major depressive disorder F33.1 and PTSD (post-traumatic stress disorder) F43.10 [place] [address] [place] [address] 91985- 5577 August, [place] [id number] [place] [address] 96340- 9717 Jul, [place] [id number] [place] [address] 77687- 3786 Jul, PTSD (post-traumatic stress disorder) F43.10 ; IBS ( irritable bowel syndrome) K58.9 ; HTN (hypertension) I10 ; Hypertriglyceridemia E78.1 ; Chronic pain G89.29 ; Anxiety F41.9 ; Depression F32.9 ; COPD (chronic obstructive pulmonary disease) J44.9 ; Irritable bowel syndrome with diarrhea K58.0 and Second degree hemorrhoids K64.1 [place] [id number] [place] [address] 34503- 1519 Jul, PTSD (post-traumatic stress disorder) F43.10 [place] [id number] [place] [address] 10459- 3013 Jul, [place] [id number] [place] [address] 51854- 5360 Jun, [place] [id number] [place] [address] 80308- 9456 Jun, HTN (hypertension) I10 [place] [id number] [place] [address] 20341- 7040 May, Depression F32.9 ; Post traumatic stress disorder F43.10 and Screening mammogram, encounter for Z12.31 [place] [id number] [place] [address] 66170- 5329 May, [id number] [place] [address] 88378- 3416 May, PTSD (post-traumatic stress disorder) F43.10 and Major depressive disorder in partial remission F32.4 [id number] [place] [address] 45246- 8120 May, PTSD (post-traumatic stress disorder) F43.10 ; IBS ( irritable bowel syndrome) K58.9 ; History of herniated intervertebral disc Z87.39 ; Anxiety F41.9 ; Depression F32.9 ; Hypertriglyceridemia E78.1 ; Eczema of both hands L30.9 ; HTN (hypertension) I10 and COPD (chronic obstructive pulmonary disease) J44.9 [place] [address] [place] [address] 70690- 8664 Apr, Major depressive disorder in partial remission F32.4 and PTSD (post-traumatic stress disorder) F43.10 [facility] [id number] [place] [address] 16946- 4648 Apr, PTSD (post-traumatic stress disorder) F43.10 [place] [address] 32668- 3149 Mar, IBS (irritable bowel syndrome) K58.9 ; PTSD (post-traumatic stress disorder) F43.10 ; COPD (chronic obstructive pulmonary disease) J44.9 ; History of herniated intervertebral disc Z87.39 ; HTN (hypertension) I10 ; Parkinsons G20 ; Annular psoriasis L40.8 and Hypertriglyceridemia E78.1 [place] [address] 07272- 9894 Feb, [place] [address] 78605- 5926 Feb, Moderate episode of recurrent major depressive disorder F33.1 and PTSD (post-traumatic stress disorder) F43.10 [place] [address] 80799- 4881 Jan, Onychocryptosis L60.0 [place] [address] 76536- 2322 30 Dec, 2015 [place] [address] 27210- 1996 Dec, Dizziness R42 ; PTSD (post-traumatic stress disorder) F43.10 ; Posttraumatic stress disorder F43.10 ; IBS (irritable bowel syndrome) K58.9 ; History of herniated intervertebral disc Z87.39 ; HTN (hypertension) I10 ; Chronic pain G89.29 and Hypercholesterolemia E78.0 [place] [address] 12853- 5507 15 Dec, 2015 [place] [address] 28694- 5868 14 Dec, 2015 [facility] [address] 29087 -0797 Dec, Annular psoriasis L40.8 [place] [id number] [place] [address] 32006- 7350 Nov, [address] [id number] [place] [address] 03740- 6890 Nov, [place] [id number] [place] [address] 45092- 6849 Nov, HTN (hypertension) I10 ; Chronic pain G89.29 ; Annular psoriasis L40.8 ; IBS (irritable bowel syndrome) K58.9 and Vision changes H53.9 [id number] [place] [address] 47643- 0748 Oct, [place] [address] 72586- 9360 Oct, IBS (irritable bowel syndrome) K58.9 ; PTSD (post-traumatic stress disorder) F43.10 ; HTN (hypertension) I10 ; Depression F32.9 ; History of herniated intervertebral disc Z87.39 ; Anxiety F41.9 ; Chronic pain G89.29 and Hypercholesterolemia E78.0 [place] [id number] [place] [address] 26488- 9709 Oct, Major depressive disorder in partial remission F32.4 and PTSD (post-traumatic stress disorder) F43.10 [place] [id number] [place] [address] 98127- 7086 Oct, IBS (irritable bowel syndrome) K58.9 ; PTSD (post-traumatic stress disorder) F43.10 ; Major depressive disorder, recurrent episode, severe F33.2 ; Anxiety F41.9 and Impacted cerumen, unspecified laterality H61.20 [place] [id number] [place] [address] 04806- 5595 Oct, Major depressive disorder in partial remission F32.4 ; Posttraumatic stress disorder F43.10 and Anxiety F41.9 [address] [id number] [place] [address] 80409- 5780 Sep, [address] [address] [place] [address] 29418- 3982 Sep, Anxiety F41.9 ; Major depressive disorder, recurrent episode , mild F33.0 and Posttraumatic stress disorder F43.10 [address] [id number] [place] [address] 31446- 7440 Sep, [address] [id number] [place] [address] 23216- 1723 August, [address] [id number] [place] [address] 54130- 5181 Jul, Contact dermatitis L25.9 [address] [id number] [place] [address] 00069- 2165 Jul, Major depressive disorder, recurrent episode, severe F33.2 ; Posttraumatic stress disorder F43.10 and Anxiety F41.9 [address] [id number] [place] [address] 83974- 5787 Jul, [place] [id number] [place] [address] 78327- 1640 Jun, IBS (irritable bowel syndrome) K58.9 ; COPD (chronic obstructive pulmonary disease) J44.9 ; HTN (hypertension) I10 ; Chronic pain G89.29 ; Anxiety F41.9 ; PTSD (post-traumatic stress disorder) F43.10 ; Parkinsons G20 and Hypercholesterolemia E78.0 [address] [address] [place] [address] 02239- 9678 Jun, [address] [id number] [place] [address] 43736- 4318 Jun, Onychocryptosis L60.0 and Onychomycosis B35.1 [place] [id number] [place] [address] 28492- 4826 May, [address] [id number] [place] [address] 68497- 6894 09 May, 2015 IBS (irritable bowel syndrome) K58.9 ; COPD (chronic obstructive pulmonary disease) J44.9 ; History of herniated intervertebral disc Z87.39 ; HTN (hypertension) I10 ; Anxiety F41.9 ; Depression F32.9 and Major depressive disorder in partial remission F32.4 [id number] [place] [address] 80319- 7955 08 May, 2015 IBS (irritable bowel syndrome) K58.9 ; COPD (chronic obstructive pulmonary disease) J44.9 ; History of herniated intervertebral disc Z87.39 ; HTN (hypertension) I10 ; Anxiety F41.9 ; Depression F32.9 and Major depressive disorder in partial remission F32.4 [address] [id number] [place] [address] 32965- 2339 04 May, 2015 [address] [id number] [place] [address] 36092- 4292 04 May, 2015 Anxiety F41.9 ; IBS (irritable bowel syndrome) K58.9 and Major depressive disorder in partial remission F32.4 [address] [id number] [place] [address] 50965- 8661 18 Apr, 2015 Encounter for screening mammogram for breast cancer Z12.31 [address] [id number] [place] [address] 46495- 8597 15 Apr, 2015 [place] [id number] [place] [address] 13729- 9454 Apr, [place] [id number] [place] [address] 05296- 3821 Apr, COPD (chronic obstructive pulmonary disease) J44.9 ; HTN ( hypertension) I10 ; Chronic pain G89.29 ; Anxiety F41.9 ; PTSD (post-traumatic stress disorder) F43.10 and IBS (irritable bowel syndrome) K58.9 [facility] [address], [place] [address]- 6400 Apr, PTSD (post-traumatic stress disorder) F43.10 [facility] [id number] [place] [address] 93305- 5188 Apr, Onychocryptosis L60.0 and Onychomycosis B35.1 [facility] [id number] [place] [address] 16121- 4392 Apr, IBS (irritable bowel syndrome) K58.9 ; COPD (chronic obstructive pulmonary disease) J44.9 ; History of herniated intervertebral disc Z87.39 ; HTN (hypertension) I10 ; Chronic pain G89.29 ; Anxiety F41.9 ; Depression F32.9 ; Parkinsons G20 ; Hypercholesteremia E78.0 and Hemorrhoid K64.9 [address] [id number] [place] [address] 84050- 6209 Mar, [place] [address] 42908- 3950 Mar, Major depressive disorder, recurrent episode, severe F33.2 and Posttraumatic stress disorder F43.10 [address] [id number] [place] [address] 86736- 2069 Mar, [address] [id number] [place] [address] 77232- 2765 Mar, [place] [id number] [place] [address] 49289- 9295 Mar, PTSD (post-traumatic stress disorder) F43.10 [place] [id number] [place] [address] 74766- 0397 Mar, Onychomycosis B35.1 and Hypertension, benign I10 [address] [id number] [place] [address] 02887- 5355 Mar, Onychomycosis B35.1 and Hypertension, benign I10 [address] [id number] [place] [address] 27526- 0241 Feb, PTSD (post-traumatic stress disorder) F43.10 [address] [address], [place] [address]- 5288 Feb, [facility] [id number] [place] [address] 37760- 5270 Feb, Major depressive disorder, recurrent episode, severe F33.2 and Posttraumatic stress disorder F43.10 [facility] [address] [place] [address] 23169- 6716 Jan, PTSD (post-traumatic stress disorder) F43.10 [facility] [id number] [place] [address] 75182- 8202 Jan, Rash R21 [facility] [id number] [place] [address] 64059- 0825 14 Jan, 2015 PTSD (post-traumatic stress disorder) F43.10 [facility] [id number] [place] [address] 42630- 0461 Jan, [facility] [id number] [place] [address] 78541- 7440 30 Dec, 2014 Neuropathy 355.9 [facility] [id number] [place] [address] 33522- 3613 30 Dec, 2014 PTSD (post-traumatic stress disorder) F43.10 [facility] [address], [place] [address]- 5231 29 Dec, 2014 MDD (major depressive disorder), recurrent episode, severe 296.33 and PTSD (post-traumatic stress disorder) 309.81 [facility] [address], [place] [address]- 2544 23 Dec, 2014 [facility] [id number] [place] [address] 45703- 2546 22 Dec, 2014 Ingrown toenail 703.0 [facility] [address], [place] [address]- 2546 02 Dec, 2014 Posttraumatic stress disorder 309.81 [facility] [id number] [place] [address] 75926849- 5013 Nov, Depressive disorder, not elsewhere classified 311 and Anxiety state, unspecified 300.00 [facility] [address], [place] [address]- 2048 Oct, Depressive disorder, not elsewhere classified 311 and Anxiety state, unspecified 300.00 [facility] [address], [place] [address]- 0205 Oct, Depressive disorder, not elsewhere classified 311 ; Anxiety state, unspecified 300.00 and No condition on [place] II V71.09 [facility] [address] [id number] Oct, Dental examination V72.2 [facility] [address] [place] [address] 856533- 1678 Oct, [facility] [id number] [place] [address] 72604- 6435 August, [facility] [id number] [place] [address] 67006- 5660 August, Seizure 780.39 and IBS (irritable bowel syndrome) 564.1 [facility] [id number], [place] [address]- 2310 Jul, [facility] [address], [place] [address]- 5657 Jul, [facility] [id number], [place] [address]- 4561 Jun, [facility] [address], [place] [address]- 7407 Jun, [facility] [id number] [place] [address] 788474- 9252 Jun, [facility] [address] [address]- 4708 Jun, [facility] [id number] [place] [address] 99001006- 9177 20 Jun, 2014 [facility] [place] [facility] [address] [id number] [place] [address]- 3283 20 Jun, 2014 [facility] [place] [facility] [address] [id number] [place] [address]- 0346 20 Jun, 2014 [facility] [place] [facility] [address] [id number] [place] [address]- 4876 20 Jun, 2014 [facility] [place] [facility] [address] [id number] [place] [address]- 2328 20 Jun, 2014 [facility] [place] [facility] [address] [id number] [place] [address]- 5487 20 Jun, 2014 [facility] [place] [facility] [address] [id number] [place] [address]- 5347 Jun, [facility] [place] [facility] [address] [id number] [place] [address]- 1850 Jun, [facility] [place] [facility] [address] [id number] [place] [address]- 8334 May, [facility] [place] [facility] [address] [id number] [place] [address]- 8499 May, [facility] [place] [facility] [address] [id number] [place] [address]- 8933 Apr, [facility] [place] [facility] [address] [id number] [place] [address]- 1698 Apr, [facility] [place] [facility] [address] [id number] [place] [address]- 3316 Mar, [facility] [place] [facility] [address] [id number] [place] [address]- 6656 Mar, [facility] [place] [facility] [address] [id number] [place] [address]- 2010 Mar, [facility] [place] [facility] [address] [id number] [place] [address]- 9456 Mar, [facility] [place] [facility] [address] [id number] [place] [address]- 0854 Mar, [facility] [place] [facility] [address] [id number] [place] [address]- 8246 Mar, [facility] [place] [facility] [address] [id number] [place] [address]- 4166 Mar, [facility] [place] [facility] [address] [id number] [place] [address]- 0336 Mar, [facility] [place] [facility] [address] [id number] [place] [address]- 3848 Mar, [facility] [place] [facility] [address] [id number] [place] [address]- 4467 Mar, [facility] [place] [facility] [address] [id number] [place] [address]- 9386 Mar, [facility] [place] [facility] [address] [id number] [place] [address]- 4397 Mar, [facility] [place] [facility] [address] [id number] [place] [address]- 9149 Mar, [facility] [place] [facility] [address] [id number] [place] [address]- 8817 Mar, [facility] [place] [facility] [address] [id number] [place] [address]- 3623 Mar, [facility] [place] [facility] [address] [id number] [place] [address] Mar, [facility] [place] [facility] [address] [id number] [place] [address] Mar, [facility] [place] [facility] [address] [id number] [place] [address] Mar, [facility] [place] [facility] [address] [id number] [place] [address] Mar, [facility] [place] [facility] [address] [id number] [place] [address] Feb, [facility] [place] [facility] [address] [id number] [place] [address] Feb, [facility] [place] [facility] [address] [id number] [place] [address] Feb, [facility] [place] [facility] [address] [id number] [place] [address] Feb, [facility] [place] [facility] [address] [id number] [place] [address] Feb, [facility] [place] [facility] [address] [id number] [place] [address] Feb, [facility] [place] [facility] [address] [id number] [place] [address] Feb, [facility] [place] [facility] [address] [id number] [place] [address] Feb, [facility] [place] [facility] [address] [id number] [place] [address] Jan, [facility] [place] [facility] [address] [id number] [place] [address] Jan, [facility] [place] [facility] [address] [id number] [place] [address] Nov, [facility] [place] [facility] [address] [id number] [place] [address] Nov, [facility] [place] [facility] [address] [id number] [place] [address] Oct, [facility] [place] [facility] [address] [id number] [place] [address] Oct, [facility] [place] [facility] [address] [id number] [place] [address] Oct, [facility] [place] [facility] [address] [id number] [place] [id number] Oct, [facility] [facility] [address] [id number] [place] [address] Oct, [facility] [place] [facility] [address] [id number] [place] [address] Sep, [facility] [place] [facility] [address] [id number] [place] [address] Sep, [facility] [place] [facility] [address] [id number] [place] [address] August, [facility] [place] [facility] [address] [id number] [place] [address] August, [facility] [place] [facility] [address] [id number] [place] [address] Jun, [facility] [place] [facility] [address] [id number] [place] [address] Jun, [facility] [place] [facility] [address] [id number] [place] [address] Jun, [facility] [place] [facility] [address] [id number] [place] [address] Jun, [facility] [place] [facility] [address] [id number] [place] [address] Jun, [facility] [place] [facility] [address] [id number] [place] [address] Jun, [facility] [place] [facility] [address] [id number] [place] [address] Jun, [facility] [place] [facility] [address] [id number] [place] [address] Jun, [facility] [place] [facility] [address] [id number] [place] [address] Jun, [facility] [place] [facility] [address] [id number] [place] [address] Jun, [facility] [place] [facility] [address] [id number] [place] [address] Jun, [facility] [place] [facility] [address] [id number] [place] [address] Jun, [facility] [place] [facility] [address] [id number] [place] [address] 43[address] Jun, [facility] [place] [facility] [address] [id number] [place] [address] Jun, [facility] [place] [facility] [address] [id number] [place] [address] May, [facility] [place] [facility] [address] [id number] [place] [address] 69[address] May, [facility] [place] [facility] [address] [id number] [place] [address] Apr, [facility] [address] [id number] [place] [address] Apr, [facility] [address] [id number] [place] [address] Mar, [facility] [address] [id number] [place] [address] Mar, [facility] [address] [id number] [place] [address] Feb, [facility] [address] [id number] [place] [address] Feb, [facility] [address] [id number] [place] [address] Feb, [facility] [place] [facility] [address] [id number] [place] [address]40 Feb, [facility] [address] [id number] [place] [address] 4031 Feb, [facility] [address] [id number] [place] [address] 56[address] Feb, [facility] [address] [id number] [place] [address] Feb, [facility] [address] [id number] [place] [address] Jan, [facility] [address] [id number] [place] [address] Jan, [facility] [address] [id number] [place] [address] Dec, [facility] [address] [id number] [place] [address]60 Dec, [facility] [address] [id number] [place] [address] 8916 Nov, [facility] [facility] [address] [id number] [place] [address] Nov, [facility] [address] [id number] [place] [address] 2021 Oct, [facility] [address] [id number] [place] [address] Sep, [facility] [address] [id number] [place] [address] 1390 Sep, [facility] [address] [id number], [place] [address] August, [facility] [address] [id number], [place] [address] August, [facility] [address] [id number], [place] [address] August, [facility] [address] [id number] [place] [address] 4499 Jul, [facility] [address] [id number], [place] [address] May, [facility] [address] [id number] [place] [address]- 7997 May, [facility] [address] [id number] [place] [address]99 Apr, [facility] [address] [id number] [place] [address] 7814 Apr, [facility] [address] [id number] [place] [address] Feb, [facility] [address] [id number] [place] [address]- 2445 Feb, [facility] [address] [id number] [place] [address] 1207 Jan, [facility] [address] [id number] [place] [address] Jan, [facility] [address] [id number] [place] [address]- 2[address] Jan, [facility] [address] [id number] [place] [address]- 2475 Nov, [facility] [address] [id number] [place] [address]- 2429 Nov, [facility] [address] [id number] [place] [address]- 7009 Nov, [facility] [address] [id number] [place] [address]- 7057 Nov, [facility] [address] [id number] [place] [address]- 8396 Nov, [facility] [address] [id number] [place] [address]- 6217 Oct, [facility] [address] [id number] [place] [address]- 5490 Oct, [facility] [address] [id number] [place] [address]- 7820 Oct, [facility] [address] [id number] [place] [address]- 8067 Oct, [facility] [address] [id number] [place] [address]- 9389 Oct, [facility] [address] [id number] [place] [address]- [address]50 Oct, [facility] [address] [id number] [place] [address]- 8680 Oct, [facility] [address] [id number] [place] [address]- 6843 Sep, [facility] [address] [id number] [place] [address]- 1879 Sep, [facility] [address] [id number] [place] [address]- 4372 Sep, [facility] [address] [id number] [place] [address]- 5236 August, [facility] [address] [id number] [place] [address]- 8725 30 Jul, 2011 [facility] [address] [id number] [place] [address]- 9599 Jul, [facility] [address] [id number] [place] [address]- 7[address] Jul, [facility] [address] [id number] [place] [address]- 5869 16 Jul, 2011 [facility] [address] [id number] [place] [address]- 1134 Jul, [facility] [address] [id number] [place] [address]- 5219 Jun, [facility] [address] [id number] [place] [address]- 6201 May, [facility] [address] [id number] [place] [address]- 8825 Apr, [facility] [address] [id number], [place] [address] 9188 Apr, [facility] [address] [id number] [place] [address]- 6786 Apr, [facility] [address] [id number] [place] [address]- 1110 Apr, [facility] [address] [id number] [place] [address]- 0072 Apr, [facility] [address] [id number] [place] [address]- 7688 Apr, [facility] [address] [id number] [place] [address]- 5786 Mar, [facility] [address] [id number] [place] [address]- 4951 Mar, [facility] [address] [id number] [place] [address]- 5110 Feb, [facility] [address] [id number] [place] [address]- 2788 Nov, [facility] [address] [id number] [place] [address]- 9953 Jun, [facility] [address] [id number] [place] [address]- 9962 Apr, [facility] [address] [id number], [place] [address]- [address]378 Feb, [facility] [address] [id number], [place] [address]- 98[address] Jan, [facility] [address] [id number] [place] [address]- 8798 Jan, [facility] [address] [id number] [place] [address]- 3134 Jan, [facility] [address] [id number] [place] [address]- 2023 Jan, [facility] [address] [id number], [place] [address] 16 Nov, 2009 [facility] [address] [id number], [place] [address] Nov, [facility] [id number], [place] [address]- [address] Mar, [facility] [address] [id number], [place] [address] Mar, [facility] [id number], [place] [address]- [address] Feb, [facility] [id number], [place] [address]- [address] Feb, [facility] [id number], [place] [address]- [address] Jan, [facility] [id number], [place] [address]- [address] May, IMMUNIZATIONS No Known Immunizations SOCIAL HISTORY Never Assessed REASON FOR VISIT Question PLAN OF CARE VITAL SIGNS MEDICATIONS Medication Instructions Dosage Frequency Start Date End Date Duration Status Atorvastatin Calcium 10 mg Orally Once a [...]
--- OUTSIDE RECORDS SUMMARY | 2018-03-25 15:21 | XMS REPORT ---
Author JOÃO Boone [employer] Address Unknown Phone Unavailable Care Team Providers Care Environmental Science Instructor Name Role Phone JOÃO MELGAR Unavailable Allergies [...] Active Problem Chronic pain G89.29 Active Assessment PTSD (post-traumatic stress disorder) F43.10 Active Problem ZOSTAVAX DX V05.8 Active Problem PTSD (post-traumatic stress disorder) F43.10 Active Medications No Known Medications Procedures Procedure Coding System Code Date Psychotherapy, patient &/family, 45 minutes, established patient CPT-4 01419 May 07, 2015 Results No Known Results Summary Purpose eClinicalWorks Submission
--- OUTSIDE RECORDS SUMMARY | 2018-03-25 15:21 | XMS REPORT ---
Author Author MARYANA ROJO Organization [facility] Address [address] [place] [address] Care Team Providers Care Community Center Worker Name Role Phone MARYANA ROJO Unavailable PROBLEMS Type Condition ICD9-CM Code [id number] Code Onset Dates Condition Status SNOMED Code Problem Major depressive disorder, recurrent episode, severe F33.2 Active 314103827907 Problem HTN (hypertension) I10 Active 48822043 Problem COPD (chronic obstructive pulmonary disease) J44.9 Active 19845531 Problem PTSD (post-traumatic stress disorder) F43.10 Active 62339686 Problem Cervical disc disease M50.90 Active 174551050 Problem Hypertriglyceridemia E78.1 Active 020807264 Problem Anxiety F41.9 Active 77316148 Problem Depression F32.9 Active 82740947 Problem Annular psoriasis L40.8 Active 065500633 Problem Parkinsons G20 Active 80398725 ALLERGIES No Information SOCIAL HISTORY Never Assessed [...]
--- OUTSIDE RECORDS SUMMARY | 2018-03-25 15:21 | XMS REPORT ---
Author MARYANA Deng [facility] eClinical[employer] Address Unknown Phone Unavailable Care Team Providers Care Joint Cutter Name Role Phone MARYANA ROJO CP Unavailable [...] Problem Posttraumatic stress disorder F43.10 Active Problem Major depressive disorder, recurrent episode, severe F33.2 Active Medications Medication Code System Code Instructions Start Date End Date Status Dosage Indomethacin [facility] 65443675574 25 MG Orally Three times a day 1 capsule with food Cymbalta [facility] 93904893474 60MG Orally Once a day 1 capsule Neurontin [facility] 89198204881 400 MG Orally 3 times a day 1 capsule Hydrochlorothiazide [facility] [address]-18 25 MG Orally Once a day 1 tablet Bentyl [facility] [address]-03 10 mg Orally Four times a day 1 capsule Results No Known Results Summary Purpose eClinicalWorks Submission
--- OUTSIDE RECORDS SUMMARY | 2018-03-25 15:21 | XMS REPORT ---
Author Author RUDI DONATO Organization [employer] Address Unknown Phone Unavailable Care Team Providers Care Kennel Manager Dog Track Name Role Phone RUDI DONATO CP Unavailable Allergies No Known Allergies Problems [...] Active Problem Chronic pain G89.29 Active Assessment Contact dermatitis L25.9 Active Problem ZOSTAVAX DX V05.8 Active Problem PTSD (post-traumatic stress disorder) F43.10 Active Problem Posttraumatic stress disorder F43.10 Active Medications Medication Code System Code Instructions Start Date End Date Status Dosage Cortisporin [facility] [address]-73 [id number] Otic daily August 03, 2015 2 drops onto toe Procedures Procedure Coding System Code Date Office Visit, Est Pt., Level 3 CPT-4 59138 August 03, 2015 Vital Signs Date/Time: August 03, 2015 Blood Pressure Diastolic 69 mmHg Blood Pressure Systolic 132 mmHg Height 64 in Results No Known Results Summary Purpose eClinicalWorks Submission
--- OUTSIDE RECORDS SUMMARY | 2018-03-25 15:21 | XMS REPORT ---
Author MILLER Thomson e[employer] Address Unknown Phone Unavailable Care Team Providers Care Shirt Presser Name Role Phone MILLER FLORES CP Unavailable Allergies, Adverse Reactions, Alerts Substance Reaction Event Type Latex Info Not Available Drug Allergy Problems Problem Type Condition Code Onset Dates Condition Status Problem Parkinsons G20 Active Problem Anxiety F41.9 Active Problem Depression F32.9 Active Problem Major depressive disorder, recurrent episode, mild F33.0 Active Problem IBS (irritable bowel syndrome) K58.9 Active Problem Impacted cerumen, unspecified laterality H61.20 Active Problem HTN (hypertension) I10 Active Problem Chronic pain G89.29 Active Problem COPD (chronic obstructive pulmonary disease) J44.9 Active Problem History of herniated intervertebral disc Z87.39 Active Assessment Anxiety F41.9 Active Assessment Posttraumatic stress disorder F43.10 Active Problem PTSD (post-traumatic stress disorder) F43.10 Active Problem Posttraumatic stress disorder F43.10 Active Assessment Major depressive disorder in partial remission F32.4 Active Problem Major depressive disorder, recurrent episode, severe F33.2 Active Problem ZOSTAVAX DX V05.8 Active Problem Major depressive disorder in partial remission F32.4 Active Medications Medication Code System Code Instructions Start Date End Date Status Dosage Bentyl [facility] 78030023773 10 MG Orally Four times a day 1 capsule Indomethacin [facility] 39852952992 25 MG Orally Three times a day 1 capsule with food Clonazepam [facility] 45590013967 0.5 MG Orally TAKE ONE TABLET BY MOUTH ONCE DAILY IN THE AFTERNOON 1 tablet Cymbalta [facility] 59127180049 60MG Orally Once a day 1 capsule Hydrochlorothiazide [facility] [address]-09 25 MG Orally Once a day 1 tablet Simvastatin [facility] 45885816977 40 MG Orally Once a day 1 tablet in the evening Verapamil HCl CR [facility] 98640776785 180 MG TAKE ONE TABLET BY MOUTH ONCE DAILY Neurontin [facility] 05622029498 400 MG Orally 3 times a day 1 capsule Acidophilus [facility] 68306928069 100 MG Orally Once a day 1 Procedures Procedure Coding System Code Date Office Visit, Est Pt., Level 3 CPT-4 79219 October 30, 2015 Vital Signs Date/Time: October 30, 2015 Cardiac Monitoring Heart Rate 88 bpm Weight 150.3 lbs Height 64 in Blood Pressure Diastolic 60 mmHg Blood Pressure Systolic 110 mmHg Results No Known Results Summary Purpose eClinicalWorks Submission
--- OUTSIDE RECORDS SUMMARY | 2018-03-25 15:22 | XMS REPORT ---
Author Author NAYA JACKSON Organization [facility] Address [address] [place] [address] Care Team Providers Care Handle Bender Name Role Phone NAYA JACKSON Unavailable PROBLEMS Type Condition ICD9-CM Code [id number] Code Onset Dates Condition Status SNOMED Code Problem Hypertriglyceridemia E78.1 Active 544720978 Problem Other chronic pain G89.29 Active 34337076 Problem Cervical disc disease M50.90 Active 779824973 Problem Major depressive disorder, single episode, mild F32.0 Active 68771845 Problem Irritable bowel syndrome with diarrhea K58.0 Active 153072127 Problem Paresthesia of bilateral legs R20.2 Active 807555216 Problem Ulcerative pancolitis without complication K51.00 Active 987507463 Problem Abnormal mammogram R92.8 Active 907591840 Problem Polyneuropathy G62.9 Active 20564973 Problem PTSD (post-traumatic stress disorder) F43.10 Active 48843405 Problem Major depressive disorder, recurrent episode, severe F33.2 Active 661648020644 Problem HTN (hypertension) I10 Active 57796705 Problem Depression F32.9 Active 81220705 Problem Parkinsons G20 Active 56032454 Problem Anxiety F41.9 Active 74504058 Problem COPD (chronic obstructive pulmonary disease) J44.9 Active 09263824 Problem Annular psoriasis L40.8 Active 999198372 ALLERGIES Substance Reaction Event Type Date Status Latex Unknown Drug Allergy Apr, Active ENCOUNTERS Encounter Location Date Diagnosis [facility] [address] [facility] [id number] [address] Sep, Medicare annual wellness visit, initial Z00.00 [facility] [id number] [address] Sep, [facility] [address] [facility] [id number] [address] Sep, Major depressive disorder, single episode, mild F32.0 ; PTSD (post-traumatic stress disorder) F43.10 and Edema of both legs R60.0 [facility] [id number] [place] [address] 75025- 2551 August, Localized edema R60.0 [facility] [id number] [place] [address] 64708- 2840 August, Localized edema R60.0 ; Weight gain R63.5 and Irritable bowel syndrome with diarrhea K58.0 [facility] [id number] [place] [address] 26472- 9671 Jul, [facility] [id number] [place] [address] 39327- 1920 Jul, Elevated liver enzymes R74.8 [facility] [id number] [place] [address] 94003- 1155 Jul, Polyneuropathy G62.9 [facility] [id number] [place] [address] 02213- 6869 Jul, [facility] [id number] [place] [address] 20940- 7871 Jul, Cervical disc disease M50.90 [facility] [id number] [place] [address] 29151- 3416 Jul, Elevated liver enzymes R74.8 [facility] [place] [address] [place] [address] 00179- 4745 Jul, Polyneuropathy G62.9 ; Ulcerative pancolitis without complication K51.00 ; Depression F32.9 ; Leg weakness, bilateral R29.898 and Paresthesia of bilateral legs R20.2 [facility] [id number] [place] [address] 59396- 6271 09 Jul, 2017 Polyneuropathy G62.9 ; Ulcerative pancolitis without complication K51.00 ; Depression F32.9 ; Leg weakness, bilateral R29.898 and Paresthesia of bilateral legs R20.2 [facility] [id number] [place] [address] 84590- 5970 Jun, [facility] [id number] [place] [address] 10291- 1041 Jun, Fibrous breast lumps N63.0 [facility] [id number] [place] [address] 46925- 7151 Jun, Ulcerative pancolitis without complication K51.00 [facility] [id number] [place] [address] 56778- 1271 Jun, Abnormal mammogram R92.8 [facility] [id number] [place] [address] 47099- 5558 Jun, Breast density R92.2 [facility] [id number] [place] [address] 88691- 3638 Jun, [facility] [id number] [place] [address] 04655- 3093 Jun, PTSD (post-traumatic stress disorder) F43.10 [facility] [id number] [place] [address] 15262- 3530 May, [facility] [facility] [id number] [place] [address] 20359- 6213 May, Breast cancer screening Z12.31 and Fibrous breast lumps N63.0 [facility] [id number] [place] [address] 94166- 5723 Apr, Ulcerative pancolitis without complication K51.00 [facility] [id number] [place] [address] 20805- 3158 Apr, [facility] [id number] [place] [address] 99069- 8587 Apr, Ulcerative pancolitis without complication K51.00 ; Low back pain M54.5 and Other chronic pain G89.29 [facility] [id number] [place] [address] 01668- 3456 28 Dec, 2016 Cervical disc disease M50.90 and HTN (hypertension) I10 [facility] [id number] [place] [address] 11075- 1649 05 Dec, 2016 Moderate episode of recurrent major depressive disorder F33.1 and PTSD (post-traumatic stress disorder) F43.10 [facility] [id number] [place] [address] 73794- 4344 Oct, [facility] [facility] [address] 90116- 6008 Oct, Irritable bowel syndrome with diarrhea K58.[address] 16704- 7886 Oct, Irritable bowel syndrome with diarrhea K58.0 [facility] [facility] [id number] [place] [address] 47275- 4867 Sep, Diarrhea, unspecified type R19.7 ; Chronic pain G89.29 ; Hypertriglyceridemia E78.1 ; PTSD (post-traumatic stress disorder) F43.10 ; History of herniated intervertebral disc Z87.39 and Depression F32.9 [facility] [id number] [place] [address] 23306- 5071 August, Moderate episode of recurrent major depressive disorder F33.1 and PTSD (post-traumatic stress disorder) F43.10 [place] [address] [place] [address] 63890- 2760 August, [facility] [id number] [place] [address] 45152- 0522 Jul, [facility] [facility] [id number] [place] [address] 18427- 8072 Jul, PTSD (post-traumatic stress disorder) F43.10 ; IBS ( irritable bowel syndrome) K58.9 ; HTN (hypertension) I10 ; Hypertriglyceridemia E78.1 ; Chronic pain G89.29 ; Anxiety F41.9 ; Depression F32.9 ; COPD (chronic obstructive pulmonary disease) J44.9 ; Irritable bowel syndrome with diarrhea K58.0 and Second degree hemorrhoids K64.1 [facility] [id number] [place] [address] 08169- 3950 Jul, PTSD (post-traumatic stress disorder) F43.10 [facility] [id number] [place] [address] 98340- 1060 Jul, [facility] [address] 77820- 8852 Jun, [facility] [id number] [place] [address] 07281- 1411 Jun, HTN (hypertension) I10 [address] 92754- 9529 May, Depression F32.9 ; Post traumatic stress disorder F43.10 and Screening mammogram, encounter for Z12.31 [facility] [id number] [place] [address] 87790- 5530 May, [facility] [id number] [place] [address] 97390- 7285 May, PTSD (post-traumatic stress disorder) F43.10 and Major depressive disorder in partial remission F32.4 [facility] [facility] [id number] [place] [address] 07287- 4561 02 May, 2016 PTSD (post-traumatic stress disorder) F43.10 ; IBS ( irritable bowel syndrome) K58.9 ; History of herniated intervertebral disc Z87.39 ; Anxiety F41.9 ; Depression F32.9 ; Hypertriglyceridemia E78.1 ; Eczema of both hands L30.9 ; HTN (hypertension) I10 and COPD (chronic obstructive pulmonary disease) J44.9 [facility] [id number] [place] [address] 88330- 2240 Apr, Major depressive disorder in partial remission F32.4 and PTSD (post-traumatic stress disorder) F43.10 [facility] [id number] [place] [address] 71365- 1533 Apr, PTSD (post-traumatic stress disorder) F43.10 [place] [address] 91615- 1542 Mar, IBS (irritable bowel syndrome) K58.9 ; PTSD (post-traumatic stress disorder) F43.10 ; COPD (chronic obstructive pulmonary disease) J44.9 ; History of herniated intervertebral disc Z87.39 ; HTN (hypertension) I10 ; Parkinsons G20 ; Annular psoriasis L40.8 and Hypertriglyceridemia E78.1 [place] [address] 30701- 9465 Feb, [place] [address] 19132- 6631 Feb, Moderate episode of recurrent major depressive disorder F33.1 and PTSD (post-traumatic stress disorder) F43.10 [place] [address] 49009- 4523 Jan, Onychocryptosis L60.0 [facility] [id number] [place] [address] 84002- 6880 Dec, [place] [address] 00026- 1538 Dec, Dizziness R42 ; PTSD (post-traumatic stress disorder) F43.10 ; Posttraumatic stress disorder F43.10 ; IBS (irritable bowel syndrome) K58.9 ; History of herniated intervertebral disc Z87.39 ; HTN (hypertension) I10 ; Chronic pain G89.29 and Hypercholesterolemia E78.0 [place] [id number] [place] [address] 28759- 8000 Dec, [place] [address] 34931- 4612 Dec, [facility] [id number] [place] [address] 46182 -6284 Dec, Annular psoriasis L40.8 [place] [address] [address]- 8651 Nov, [facility] [id number] [place] [address] 00427- 3677 Nov, [facility] [facility] [id number] [place] [address] 73588- 2656 Nov, HTN (hypertension) I10 ; Chronic pain G89.29 ; Annular psoriasis L40.8 ; IBS (irritable bowel syndrome) K58.9 and Vision changes H53.9 [place] [id number] [place] [address] 26137- 0355 Oct, [facility] [id number] [place] [address] 98160- 4600 Oct, IBS (irritable bowel syndrome) K58.9 ; PTSD (post-traumatic stress disorder) F43.10 ; HTN (hypertension) I10 ; Depression F32.9 ; History of herniated intervertebral disc Z87.39 ; Anxiety F41.9 ; Chronic pain G89.29 and Hypercholesterolemia E78.0 [place] [id number] [place] [address] 60428- 4415 Oct, Major depressive disorder in partial remission F32.4 and PTSD (post-traumatic stress disorder) F43.10 [place] [address] [place] [address] 81407- 0506 Oct, IBS (irritable bowel syndrome) K58.9 ; PTSD (post-traumatic stress disorder) F43.10 ; Major depressive disorder, recurrent episode, severe F33.2 ; Anxiety F41.9 and Impacted cerumen, unspecified laterality H61.20 [place] [id number] [place] [address] 86765- 5487 Oct, Major depressive disorder in partial remission F32.4 ; Posttraumatic stress disorder F43.10 and Anxiety F41.9 [place] [address] [place] [address] 55595- 8200 Sep, [facility] [id number] [place] [address] 95377- 5720 Sep, Anxiety F41.9 ; Major depressive disorder, recurrent episode , mild F33.0 and Posttraumatic stress disorder F43.10 [place] [id number] [place] [address] 55312- 7062 Sep, [place] [facility] [id number] [place] [address] 70365- 4640 August, [facility] [id number] [place] [address] 08209- 1192 Jul, Contact dermatitis L25.[address] 09450- 0174 Jul, Major depressive disorder, recurrent episode, severe F33.2 ; Posttraumatic stress disorder F43.10 and Anxiety F41.9 [place] [id number] [place] [address] 89622- 9069 Jul, [facility] [address] [place] [address] 89613- 8687 Jun, IBS (irritable bowel syndrome) K58.9 ; COPD (chronic obstructive pulmonary disease) J44.9 ; HTN (hypertension) I10 ; Chronic pain G89.29 ; Anxiety F41.9 ; PTSD (post-traumatic stress disorder) F43.10 ; Parkinsons G20 and Hypercholesterolemia E78.0 [place] [id number] [place] [address] 26799- 1943 Jun, [place] [address] [place] [address] 67482- 5854 Jun, Onychocryptosis L60.0 and Onychomycosis B35.1 [place] [address] [place] [address] 62765- 7576 May, [place] [address] [place] [address] 67160- 1623 May, IBS (irritable bowel syndrome) K58.9 ; COPD (chronic obstructive pulmonary disease) J44.9 ; History of herniated intervertebral disc Z87.39 ; HTN (hypertension) I10 ; Anxiety F41.9 ; Depression F32.9 and Major depressive disorder in partial remission F32.4 [place] [address] [place] [address] 05825- 8179 08 May, 2015 IBS (irritable bowel syndrome) K58.9 ; COPD (chronic obstructive pulmonary disease) J44.9 ; History of herniated intervertebral disc Z87.39 ; HTN (hypertension) I10 ; Anxiety F41.9 ; Depression F32.9 and Major depressive disorder in partial remission F32.4 [place] [address] 77175- 8476 04 May, 2015 [place] [address] [place] [address] 62177- 0208 04 May, 2015 Anxiety F41.9 ; IBS (irritable bowel syndrome) K58.9 and Major depressive disorder in partial remission F32.4 [place] [id number] [place] [address] 15883- 4388 18 Apr, 2015 Encounter for screening mammogram for breast cancer Z12.31 [facility] [id number] [place] [address] 79569- 0582 15 Apr, 2015 [place] [address] [place] [address] 24537- 2540 Apr, [place] [address] [place] [address] 37461- 9383 Apr, COPD (chronic obstructive pulmonary disease) J44.9 ; HTN ( hypertension) I10 ; Chronic pain G89.29 ; Anxiety F41.9 ; PTSD (post-traumatic stress disorder) F43.10 and IBS (irritable bowel syndrome) K58.9 [place] [address] [place] [address] 36021- 4951 Apr, PTSD (post-traumatic stress disorder) F43.10 [place] [address] 76680- 3159 Apr, Onychocryptosis L60.0 and Onychomycosis B35.1 [place] [address] [place] [address] 50672- 6828 Apr, IBS (irritable bowel syndrome) K58.9 ; COPD (chronic obstructive pulmonary disease) J44.9 ; History of herniated intervertebral disc Z87.39 ; HTN (hypertension) I10 ; Chronic pain G89.29 ; Anxiety F41.9 ; Depression F32.9 ; Parkinsons G20 ; Hypercholesteremia E78.0 and Hemorrhoid K64.9 [place] [address] [place] [address] 72048- 0767 Mar, [place] [address] 45985- 1360 Mar, Major depressive disorder, recurrent episode, severe F33.2 and Posttraumatic stress disorder F43.10 [place] [address] [place] [address] 40112- 7619 Mar, [place] [address] [place] [address] 03218- 5246 Mar, [place] [address] [place] [address] 80421- 3373 Mar, PTSD (post-traumatic stress disorder) F43.10 [place] [address] [place] [address] 82984- 4685 Mar, Onychomycosis B35.1 and Hypertension, benign I10 [place] [address] [place] [address] 13448- 1523 Mar, Onychomycosis B35.1 and Hypertension, benign I10 [place] [address] [place] [address] 90708- 1973 Feb, PTSD (post-traumatic stress disorder) F43.10 [place] [address] [place] [address] 77915- 8360 Feb, [facility] [address] [address]- 7711 Feb, Major depressive disorder, recurrent episode, severe F33.2 and Posttraumatic stress disorder F43.10 [facility] [id number] [address]- 1886 Jan, PTSD (post-traumatic stress disorder) F43.10 [facility] [id number] [place] [address] 70245- 6826 Jan, Rash R21 [facility] [id number] [place] [address] 41965- 0922 Jan, PTSD (post-traumatic stress disorder) F43.10 [facility] [id number] [place] [address] 59717- 0616 Jan, [place] [address] [place] [address] 98375- 5932 Dec, Neuropathy 355.9 [facility] [id number] [place] [address] 25581- 4532 Dec, PTSD (post-traumatic stress disorder) F43.10 [place] [address] [place] [address] 68740- 6643 29 Dec, 2014 MDD (major depressive disorder), recurrent episode, severe 296.33 and PTSD (post-traumatic stress disorder) 309.81 [place] [address] [place] [address] 09551- 0960 Dec, [place] [address] [place] [address] 36705- 6128 Dec, Ingrown toenail 703.0 [place] [address] [place] [address] 35952- 2482 02 Dec, 2014 Posttraumatic stress disorder 309.81 [facility] [id number] [place] [address] 37711- 9442 Nov, Depressive disorder, not elsewhere classified 311 and Anxiety state, unspecified 300.00 [facility] [address] [address]- 3441 31 Oct, 2014 Depressive disorder, not elsewhere classified 311 and Anxiety state, unspecified 300.00 [facility] [address] 2246 Oct, Depressive disorder, not elsewhere classified 311 ; Anxiety state, unspecified 300.00 and No condition on Melrude II V71.09 [facility] [address] [id number] Oct, Dental examination V72.2 [facility] [id number] [place] [address] 63167- 2317 Oct, [facility] [id number] [place] [address] 04199- 0040 August, [facility] [id number] [place] [address] 46391- 5007 August, Seizure 780.39 and IBS (irritable bowel syndrome) 564.1 [facility] [id number] [address]- 1294 Jul, [facility] [id number] [address]- 9147 Jul, [facility] [address] [address]- 6085 Jun, [facility] [address], [place] [address]- 6445 Jun, [facility] [address], [place] [address]- 8420 Jun, [facility] [id number] [address]- 3433 Jun, [facility] [address], [place] [address]- 0093 Jun, [facility] [id number] [place] [address]- 0902 20 Jun, 2014 [facility] [place] [facility] [address] [id number] [place] [address]- 4808 20 Jun, 2014 [facility] [place] [facility] [address] [id number] [place] [address]- 2329 20 Jun, 2014 [facility] [place] [facility] [address] [id number] [place] [address]- 5808 20 Jun, 2014 [facility] [place] [facility] [address] [id number] [place] [address]- 0747 20 Jun, 2014 [facility] [place] [facility] [address] [id number] [place] [address]- 1210 Jun, [facility] [place] [facility] [address] [id number] [place] [address]- 7257 2014 [facility] [place] [facility] [address] [id number] [place] [address]- 8354 13 May, 2014 [facility] [place] [facility] [address] [id number] [place] [address]- 1040 May, [facility] [place] [facility] [address] [id number] [place] [address]- 1306 Apr, [facility] [place] [facility] [address] [id number] [place] [address]- 7498 Apr, [facility] [place] [facility] [address] [id number] [place] [address]- 2248 Mar, [facility] [place] [facility] [address] [id number] [place] [address]- 9730 Mar, [facility] [place] [facility] [address] [id number] [place] [address]- 1997 Mar, [facility] [place] [facility] [address] [id number] [place] 9766 Mar, [facility] [place] [facility] [address] [id number] [place] [address]- 3481 Mar, [facility] [place] [facility] [address] [id number] [place] [address]- 4563 Mar, [facility] [place] [facility] [address] [id number] [place] [address]- 1287 Mar, [facility] [place] [facility] [address] [id number] [place] 3098 Mar, [facility] [place] [facility] [address] [id number] [place] [address]- 7663 Mar, [facility] [place] [facility] [address] [id number] [place] [address]- 7366 Mar, [facility] [place] [facility] [address] [id number] [place] [address]- 4885 Mar, [facility] [place] [facility] [address] [id number] [place] [address]- 2900 Mar, [facility] [place] [facility] [address] [id number] [place] [address]- 2446 Mar, [facility] [place] [facility] [address] [id number] [place] [address]- 2469 Mar, [facility] [place] [facility] [address] [id number] [place] [address]- 2391 Mar, [facility] [place] [facility] [address] [id number] [place] [address] Mar, [facility] [place] [facility] [address] [id number] [place] [address] Mar, [facility] [place] [facility] [address] [id number] [place] [address] Mar, [facility] [place] [facility] [address] [id number] [place] [address] Mar, [facility] [place] [facility] [address] [id number] [place] [address] Feb, [facility] [place] [facility] [address] [id number] [address] Feb, [facility] [place] [facility] [address] [id number] [place] [address] Feb, [facility] [place] [facility] [address] [id number] [place] [address] Feb, [facility] [place] [facility] [address] [id number] [place] [address] Feb, [facility] [place] [facility] [address] [id number] [place] [address] Feb, [facility] [place] [facility] [address] [id number] [place] [address] Feb, [facility] [place] [facility] [address] [id number] [place] [address] 1991 Feb, [facility] [place] [facility] [address] [id number] [place] [address] Jan, [facility] [place] [facility] [address] [id number] [place] [address] Jan, [facility] [place] [facility] [address] [id number] [place] [address] Nov, [facility] [place] [facility] [address] [id number] [place] [address] Nov, [facility] [place] [facility] [address] [id number] [place] [address] Oct, [facility] [place] [facility] [address] [id number] [place] [address] Oct, [facility] [place] [facility] [address] [id number] [place] [address] Oct, [facility] [place] [facility] [address] [id number] [place] [address] 15 Oct, 2013 [facility] [place] [facility] [address] [id number] [place] [address] 15 Oct, 2013 [facility] [place] [facility] [address] [id number] [place] [address] Sep, [facility] [place] [facility] [address] [id number] [place] [address] Sep, [facility] [place] [facility] [address] [id number] [place] [address] August, [facility] [place] [facility] [address] [id number] [place] [address] August, [facility] [place] [facility] [address] [id number] [place] [address] Jun, [facility] [place] [facility] [address] [id number] [place] [address] Jun, [facility] [place] [facility] [address] [id number] [place] [address] Jun, [facility] [place] [facility] [address] [id number] [place] [address] Jun, [facility] [place] [facility] [address] [id number] [place] [address] Jun, [facility] [place] [facility] [address] [id number] [place] [address] Jun, [facility] [place] [facility] [address] [id number] [place] [address] Jun, [facility] [place] [facility] [address] [id number] [place] [address] Jun, [facility] [place] [facility] [address] [id number] [place] [address] Jun, [facility] [place] [facility] [address] [id number] [place] [address] Jun, [facility] [place] [facility] [address] [id number] [place] [address] Jun, [facility] [place] [facility] [address] [id number] [place] [address] Jun, [facility] [place] [facility] [address] [id number] [place] [address] Jun, [facility] [place] [facility] [address] [id number] [place] [address] Jun, [facility] [place] [facility] [address] [id number] [place] [address] May, [facility] [place] [facility] [address] [id number] [place] [address] May, [facility] [place] [facility] [address] [id number] [place] [address] Apr, [facility] [place] [facility] [address] [id number] [place] [address] Apr, [facility] [place] [facility] [address] [id number] [place] [address] Mar, [facility] [place] [facility] [address] [id number] [place] [address] Mar, [facility] [place] [facility] [address] [id number] [place] [address] Feb, [facility] [place] [facility] [address] [id number] [place] [address] Feb, [facility] [place] [facility] [address] [id number], [place] [address] Feb, [facility] [place] [facility] [address] [id number], [place] [address] Feb, [facility] [place] [facility] [address] [id number] [place] [address] Feb, [facility] [place] [facility] [address] [id number], [place] [address] Feb, [facility] [place] [facility] [address] [id number] [place] [address] Feb, [facility] [place] [facility] [address] [id number] [place] [address] Jan, [facility] [address] [id number] [place] [address] Jan, [facility] [place] [facility] [address] [id number] [place] [address] Dec, [facility] [address] [id number] [place] [address] Dec, [facility] [place] [facility] [address] [id number] [place] [address] Nov, [facility] [address] [id number] [place] [address] Nov, [facility] [place] [facility] [address] [id number] [place] [address] Oct, [facility] [address] [id number] [place] [address] Sep, [facility] [address] [id number] [place] [address] Sep, [facility] [place] [facility] [address] [id number] [place] [address] August, [facility] [address] [facility] [place] [id number] [place] [address] August, [facility] [place] [facility] [address] [id number] [place] [address] August, [facility] [place] [facility] [address] [id number] [place] [address] Jul, [facility] [place] [facility] [address] [id number] [place] [address] May, [facility] [place] [facility] [address] [id number] [place] [address] May, [facility] [place] [facility] [address] [id number] [place] [address] 14[address] Apr, [facility] [place] [facility] [address] [id number] [place] [address] Apr, [facility] [place] [facility] [address] [id number] [place] [address] Feb, [facility] [place] [facility] [address] [id number] [place] [address] Feb, [facility] [place] [facility] [address] [id number] [place] [address] Jan, [facility] [place] [facility] [address] [id number] [place] [address] Jan, [facility] [place] [facility] [address] [id number] [place] [address] Jan, [facility] [place] [facility] [address] [id number] [place] [address] Nov, [facility] [place] [facility] [address] [id number] [place] [address] Nov, [facility] [place] [facility] [address] [id number] [place] [address] Nov, [facility] [place] [facility] [address] [id number] [place] [address]- [address] Nov, [facility] [place] [facility] [address] [id number] [place] [address] 1475 Nov, [facility] [place] [facility] [address] [id number] [place] [address] Oct, [facility] [place] [facility] [address] [id number] [place] [address]- [address] Oct, [facility] [place] [facility] [address] [id number] [place] [address]- 9[address] Oct, [facility] [place] [facility] [address] [id number] [place] [address]- 65[address] Oct, [facility] [place] [facility] [address] [id number] [place] [address]- 29[address] Oct, [facility] [address] [id number] [place] [address]- 9[address] Oct, [facility] [place] [facility] [address] [id number] [place] [address]- 9706 Oct, [facility] [place] [facility] [address] [id number] [place] [address]- 2416 Sep, [facility] [place] [facility] [address] [id number] [place] [address]- 5[address] Sep, [facility] [place] [facility] [address] [id number] [place] [address]- 6[address] Sep, [facility] [place] [facility] [address] [id number] [place] [address]- [address] August, [facility] [address] [id number] [place] [address]- 97[address] Jul, [facility] [place] [facility] [address] [id number] [place] [address]- 119[address] Jul, [facility] [place] [facility] [address] [id number] [place] [address]- 6[address] Jul, [facility] [place] [facility] [address] [id number] [place] [address]- 68[address] Jul, [facility] [place] [facility] [address] [id number] [place] [address]- 0216 Jul, [facility] [place] [facility] [address] [id number] [place] [address]- 7034 Jun, [facility] [place] [facility] [address] [id number] [place] [address]- 34[address] May, [facility] [place] [facility] [address] [id number] [place] [address]- 6473 Apr, [facility] [place] [facility] [address] [id number] [place] [address] Apr, [facility] [place] [facility] [address] [id number] [place] [address]- 2523 Apr, [facility] [place] [facility] [address] [id number] [place] [address]- 9567 Apr, [facility] [place] [facility] [address] [id number] [place] [address] 2546 Apr, [facility] [place] [facility] [address] [id number] [place] [address]- [address]236 Apr, [facility] [place] [facility] [address] [id number] [place] [address]- 2924 Mar, [facility] [place] [facility] [address] [id number] [place] [address]- 0536 Mar, [facility] [place] [facility] [address] [id number] [place] [address]- [address] Feb, [facility] [place] [facility] [address] [id number] [place] [address]- 3548 Nov, [facility] [place] [facility] [address] [id number] [place] [address]- 7921 Jun, [facility] [place] [facility] [address] [id number] [place] [address]- 3484 Apr, [facility] [place] [facility] [address] [id number] [place] [address]- 2667 Feb, [facility] [place] [facility] [address] [id number] [place] [address]- 47[address] Jan, [facility] [place] [facility] [address] [id number] [place] [address]- 3627 Jan, [facility] [place] [facility] [address] [id number] [place] [address]- 3992 Jan, [facility] [place] [facility] [address] [id number] [place] [address]- 2546 Jan, [facility] [place] [facility] [address] [id number] [place] [address]- 29[address] Nov, [facility] [address] [facility] [id number], [place] [address] Nov, [facility] [address] [id number] [address] Mar, [facility] [address] [facility] [place] [id number], [place] [address] Mar, [facility] [id number], [place] [address] Feb, [facility] [address] [facility] [place] [id number], [place] [address]- [address] Feb, [facility] [id number], [place] [address] Jan, [facility] [address] [id number], [place] [address] May, IMMUNIZATIONS No Known Immunizations SOCIAL HISTORY Never Assessed REASON FOR VISIT Transition of Care-Shirin ISABEL PLAN OF CARE VITAL SIGNS Height 64 in 2017-05-01 Weight 158.3 lbs 2017-05-01 Temperature 98.0 degrees Fahrenheit 2017-05-01 Heart Rate 76 bpm 2017-05-01 Respiratory Rate 18 2017-05-01 BMI 27.17 kg/m2 2017-05-01 Blood pressure systolic 120 mmHg 2017-05-01 Blood pressure diastolic 72 mmHg 2017-05-01 MEDICATIONS Medication Instructions Dosage Frequency Start Date End Date Duration Status Zocor 20 mg Orally Once a day 1 tablet in the evening 24h 30 days Active Celexa 20 mg Orally Once a day 1 tablet 24h Apr, Active Verapamil HCl ER 240 MG Orally Once a day 1 tablet 24h Active Parafon Forte DSC 500 mg Orally Three times a day 1 tablet 8h Apr, 4 May, 2017 30 day(s) Active Budesonide 3 MG Orally Once a day 3 capsules 24h Apr, Active Hydrochlorothiazide 12.5 MG Orally Once a day 1 tablet in the morning 24h 90 days Active Gabapentin 800 MG Orally 3 times a day TAKE ONE CAPSULE BY MOUTH THREE TIMES DAILY 8h 30 days Active RESULTS No Results PROCEDURES Procedure Date Ordered Result Body Site [facility] VISIT ESTABLISHED PATIENT May 01, 2017 INSTRUCTIONS MEDICATIONS ADMINISTERED No Known Medications [...]
--- OUTSIDE RECORDS SUMMARY | 2018-03-25 15:22 | XMS REPORT ---
Author MILLER Thomson [facility] eClinicalWorks Address Unknown Phone Unavailable Care Team Providers Care Sourcing Internship Name Role Phone MILLER FLORES CP Unavailable [...] Instructions Start Date End Date Status Dosage Klonopin [facility] [address]-37 0.5 MG Orally once per afternoon for anxiety Mar 06, 2015 1 tablet Cymbalta [facility] [address]-19 60 MG Orally Once a day Jan 23, 2015 1 capsule Results No Known Results Summary Purpose eClinicalWorks Submission
--- OUTSIDE RECORDS SUMMARY | 2018-03-25 15:22 | XMS REPORT ---
Author JOÃO Boone [facility] eClinicalWorks Address Unknown Phone Unavailable Care Team Providers Care Hot Pond Operator Name Role Phone JOÃO MELGAR Unavailable Allergies [...] Problem Irritable bowel syndrome 564.1 Active Assessment PTSD (post-traumatic stress disorder) F43.10 [...] Problem Viral warts, unspecified 078.10 Active Medications No Known Medications Procedures Procedure Coding System Code Date Psychotherapy, patient &/family, 45 minutes, established patient CPT-4 71792 Apr 02, 2015 Results No Known Results Summary Purpose eClinicalWorks Submission
--- OUTSIDE RECORDS SUMMARY | 2018-03-25 15:22 | XMS REPORT ---
Author MARYANA Deng [facility] eClinicalWorks Address Unknown Phone Unavailable Care Team Providers Care Web Methods Developer Name Role Phone MARYANA ROJO CP Unavailable Allergies No Known Allergies Problems Problem Type Condition Code Onset Dates Condition Status Problem Parkinsons G20 Active Problem Anxiety F41.9 Active Problem Depression F32.9 Active Problem Impacted cerumen, unspecified laterality H61.20 Active Problem IBS (irritable bowel syndrome) K58.9 Active Problem Annular psoriasis L40.8 Active Problem HTN (hypertension) I10 Active Problem Chronic pain G89.29 Active Problem COPD (chronic obstructive pulmonary disease) J44.9 Active Problem History of herniated intervertebral disc Z87.39 Active Problem PTSD (post-traumatic stress disorder) F43.10 Active Problem Posttraumatic stress disorder F43.10 Active Problem Major depressive disorder, recurrent episode, severe F33.2 Active Problem ZOSTAVAX DX V05.8 Active Problem Major depressive disorder in partial remission F32.4 Active Medications Medication Code System Code Instructions Start Date End Date Status Dosage Hydrocortisone [facility] [address]-46 2.5 % Externally Twice a day Dec 26, 2015 1 application to affected area Results No Known Results Summary Purpose eClinicalWorks Submission
--- OUTSIDE RECORDS SUMMARY | 2018-03-25 15:22 | XMS REPORT ---
Author NAYA Escalera [facility] eClinicalWorks Address Unknown Phone Unavailable Care Team Providers Care Adult Protective Caseworker Name Role Phone NAYA JACKSON CP Unavailable [...] Problem Irritable bowel syndrome 564.1 Active Assessment Onychomycosis B35.1 Active Problem PTSD (post-traumatic stress disorder) F43.10 Active Assessment Hypertension, benign I10 Active Problem Palpitations 785.1 Active Problem Screening [...] Instructions Start Date End Date Status Dosage Simvastatin [facility] 13592657069 40 MG TAKE ONE TABLET BY MOUTH DAILY Cymbalta [facility] [address]-60 60 MG Orally Once a day Jan 23, 2015 1 capsule Colace [facility] [address]-89 100 MG Orally Once a day 1 capsule as needed Trazodone HCl [facility] [address]-67 50 MG Orally at bedtime as needed for insomnia Jan 23, 2015 1 tablet verapamil [facility] 0 180 mg 1 ERC orally once a day July 14, 2014 1 Tablet by Oral route 1 time per day take one tablet by mouth daily MiraLax [facility] [address]-29 17 gram/dose July 07, 2014 take 8.5 g mixed with 8 oz. water or juice by Oral route 1 time per day Acidophilus [facility] 78719368539 100 MG Orally Once a day 1 Klonopin [facility] [address]-61 0.5 MG Orally once per afternoon for anxiety Mar 06, 2015 1 tablet Indomethacin [facility] 00653084034 25 MG Orally Three times a day 1 capsule with food Carbidopa-Levodopa [facility] [address]-30 10-100 mg Jun 09, 2014 1 tablet by Oral route 3 times per day Hydrochlorothiazide [facility] 39242534365 25 MG TAKE ONE TABLET BY MOUTH DAILY Hyoscyamine Sulfate CR [facility] 01555723362 0.375 MG TAKE ONE TABLET BY MOUTH EVERY 12 HOURS Neurontin [facility] [address]-93 400 MG Orally 3 times a day 1 capsule Procedures Procedure Coding System Code Date Office Visit, Est Pt., Level 3 CPT-4 73841 Mar 30, 2015 Vital Signs Date/Time: Mar 30, 2015 Temperature 98.3 F Weight 156.3 lbs Height 64 in BMI 26.83 Index Blood Pressure Diastolic 76 mmHg Blood Pressure Systolic 132 mmHg Cardiac Monitoring Heart Rate 100 bpm Results No Known Results Summary Purpose eClinicalWorks Submission
--- OUTSIDE RECORDS SUMMARY | 2018-03-25 15:22 | XMS REPORT ---
Author Author MARYANA ROJO Organization [facility] Address [address] [place] [address] Care Team Providers Care Online Activist Name Role Phone MARYANA ROJO Unavailable PROBLEMS Type Condition ICD9-CM Code TQR48-UN Code Onset Dates Condition Status SNOMED Code Problem Major depressive disorder, recurrent episode, severe F33.2 Active 329722017483 Problem HTN (hypertension) I10 Active 40916149 Problem COPD (chronic obstructive pulmonary disease) J44.9 Active 61316006 Problem PTSD (post-traumatic stress disorder) F43.10 Active 25017849 Problem Cervical disc disease M50.90 Active 831079641 Problem Hypertriglyceridemia E78.1 Active 332505550 Problem Anxiety F41.9 Active 75251376 Problem Depression F32.9 Active 55644440 Problem Annular psoriasis L40.8 Active 613604957 Problem Parkinsons G20 Active 11310940 ALLERGIES No Information SOCIAL HISTORY Never Assessed PLAN OF CARE VITAL SIGNS MEDICATIONS Medication Instructions Dosage Frequency Start Date End Date Duration Status Verapamil HCl CR 180 MG orally once [...]
--- OUTSIDE RECORDS SUMMARY | 2018-03-25 15:23 | XMS REPORT ---
Author JOÃO Boone eClinicalWorks Address Unknown Phone Unavailable Care Team Providers Care Telecommunications Analyst Name Role Phone JOÃO MELGAR Unavailable Allergies No Known Allergies Problems Problem Type Condition Code Onset Dates Condition Status Problem Special screening examination, human papillomavirus [HPV] V73.81 Active Problem Routine gynecological examination V72.31 Active Problem Hemoptysis, unspecified 786.30 Active Problem Diverticulitis of colon (without mention of hemorrhage) 562.11 Active Problem Acute bronchitis 466.0 Active Problem Benign paroxysmal positional vertigo 386.11 Active Problem Enlargement of lymph nodes 785.6 Active Problem Paralysis agitans 332.0 Active Problem Dizziness and giddiness 780.4 Active Problem Lumbago 724.2 Active Problem Encounter for long-term (current) use of other medications V58.69 Active Problem Other abnormal glucose 790.29 Active Problem Other chronic pain 338.29 Active Problem Cervicalgia 723.1 Active Problem ZOSTAVAX DX V05.8 Active Problem Brachial neuritis or radiculitis nos. 723.4 Active Problem Posttraumatic stress disorder F43.10 Active Problem PTSD (post-traumatic stress disorder) F43.10 Active Problem Acute sinusitis, unspecified 461.9 Active Problem Unspecified constipation 564.00 Active Problem Chronic airway obstruction, not elsewhere classified 496 Active Problem Major depressive disorder, recurrent episode, severe F33.2 Active Problem Urinary tract infection, site not specified 599.0 Active Problem Unspecified essential hypertension 401.9 Active Problem Irritable bowel syndrome 564.1 Active Assessment PTSD (post-traumatic stress disorder) F43.10 Active Problem Essential and other specified forms of tremor 333.1 Active Problem Palpitations 785.1 Active Problem Unspecified hypertrophic and atrophic condition of skin 701.9 Active Problem Other specified counseling V65.49 Active Problem Disturbance of salivary secretion 527.7 Active Problem Screening for malignant neoplasm of the cervix V76.2 Active Problem Other and unspecified diseases of the oral soft tissues 528.9 Active Problem Mastodynia 611.71 Active Problem Subacute dyskinesia due to drugs 333.85 Active Problem Special screening for malignant neoplasms, colon V76.51 Active Problem Candidiasis of mouth 112.0 Active Problem Nausea with vomiting 787.01 Active Problem Viral warts, unspecified 078.10 Active Problem Other and unspecified noninfectious gastroenteritis and colitis 558.9 Active Problem Contact dermatitis and other eczema due to solvents 692.2 Active Problem Unspecified breast screening V76.10 Active Problem Actinic keratosis 702.0 Active Medications No Known Medications Procedures Procedure Coding System Code Date Psychotherapy, patient &/family, 45 minutes, established patient CPT-4 63273 Mar 08, 2015 Results No Known Results Summary Purpose eClinicalWorks Submission
--- OUTSIDE RECORDS SUMMARY | 2018-03-25 15:23 | XMS REPORT ---
Author Author MARCIN MONTANO [facility] Address [address] [place] [address] Care Team Providers Care Bracelet Former Name Role Phone MARCIN MONTANO Unavailable PROBLEMS Type Condition ICD9-CM Code RWN89-DV Code Onset Dates Condition Status SNOMED Code Problem Depression F32.9 Active 69419332 Problem Parkinsons G20 Active 62661744 Problem Anxiety F41.9 Active 76339395 Problem PTSD (post-traumatic stress disorder) F43.10 Active 16478843 Problem Major depressive disorder, recurrent episode, severe F33.2 Active 250605726239 Problem COPD (chronic obstructive pulmonary disease) J44.9 Active 53597548 Problem HTN (hypertension) I10 Active 70525146 Problem Abnormal mammogram R92.8 Active 279945147 Problem Other chronic pain G89.29 Active 25377114 Problem Hypertriglyceridemia E78.1 Active 173271275 Problem Annular psoriasis L40.8 Active 590660973 Problem Ulcerative pancolitis without complication K51.00 Active 533710069 Problem Cervical disc disease M50.90 Active 980776861 ALLERGIES No Information ENCOUNTERS Encounter Location Date Diagnosis [facility] [place] [facility] [address] [address] Jul, [facility] [place] [facility] [id number] [place] [address] 73648- 4062 Jun, [facility] [place] [facility] [id number] [place] [address] 04877- 1467 Jun, Fibrous breast lumps N63.0 [facility] [place] [facility] [id number] [place] [address] 88146- 4302 Jun, Ulcerative pancolitis without complication K51.00 [place] [id number] [place] [address] 44453- 0667 Jun, Abnormal mammogram R92.8 [place] [address] [place] [address] 36715- 5722 Jun, Breast density R92.2 [place] [id number] [place] [address] 89014- 1179 Jun, [place] [id number] [place] [address] 76219- 4027 Jun, PTSD (post-traumatic stress disorder) F43.10 [place] [id number] [place] [address] 92349- 6423 May, [place] [address] 84168- 4202 May, Breast cancer screening Z12.31 and Fibrous breast lumps N63.0 [place] [id number] [place] [address] 01067- 1396 Apr, Ulcerative pancolitis without complication K51.00 [place] [id number] [place] [address] 23762- 2671 Apr, [place] [id number] [place] [address] 28988- 7041 Apr, Ulcerative pancolitis without complication K51.00 ; Low back pain M54.5 and Other chronic pain G89.29 [place] [id number] [place] [address] 62761- 4243 Dec, Cervical disc disease M50.90 and HTN (hypertension) I10 [place] [id number] [place] [address] 99359- 9764 05 Dec, 2016 Moderate episode of recurrent major depressive disorder F33.1 and PTSD (post-traumatic stress disorder) F43.10 [place] [address] [place] [address] 00543- 1477 Oct, [place] [id number] [place] [address] 51690- 4233 Oct, Irritable bowel syndrome with diarrhea K58.0 [facility] [place] [facility] [address], [place] [address] 69[address] Oct, Irritable bowel syndrome with diarrhea K58.0 [facility] [place] [facility] [id number] [place] [address] 78506- 3779 16 Sep, 2016 Diarrhea, unspecified type R19.7 ; Chronic pain G89.29 ; Hypertriglyceridemia E78.1 ; PTSD (post-traumatic stress disorder) F43.10 ; History of herniated intervertebral disc Z87.39 and Depression F32.9 [place] [id number] [place] [address] 17269- 5275 August, Moderate episode of recurrent major depressive disorder F33.1 and PTSD (post-traumatic stress disorder) F43.10 [place] [id number] [place] [address] 14431- 4455 August, [place] [id number] [place] [address] 28465- 1185 Jul, [place] [id number] [place] [address] 86313- 3431 Jul, PTSD (post-traumatic stress disorder) F43.10 ; IBS ( irritable bowel syndrome) K58.9 ; HTN (hypertension) I10 ; Hypertriglyceridemia E78.1 ; Chronic pain G89.29 ; Anxiety F41.9 ; Depression F32.9 ; COPD (chronic obstructive pulmonary disease) J44.9 ; Irritable bowel syndrome with diarrhea K58.0 and Second degree hemorrhoids K64.1 [place] [address], [place] [address] 4999 Jul, PTSD (post-traumatic stress disorder) F43.10 [place] [id number] [place] [address] 33698- 7787 Jul, [place] [address] [place] [address] 60988- 4199 Jun, [place] [id number] [place] [address] 71791- 2790 Jun, HTN (hypertension) I10 [place] [id number] [place] [address] 50868- 8222 May, Depression F32.9 ; Post traumatic stress disorder F43.10 and Screening mammogram, encounter for Z12.31 [place] [id number] [place] [address] 64315- 8744 May, [place] [id number] [place] [address] 81157- 2531 May, PTSD (post-traumatic stress disorder) F43.10 and Major depressive disorder in partial remission F32.4 [place] [id number] [place] [address] 26340- 7509 May, PTSD (post-traumatic stress disorder) F43.10 ; IBS ( irritable bowel syndrome) K58.9 ; History of herniated intervertebral disc Z87.39 ; Anxiety F41.9 ; Depression F32.9 ; Hypertriglyceridemia E78.1 ; Eczema of both hands L30.9 ; HTN (hypertension) I10 and COPD (chronic obstructive pulmonary disease) J44.9 [place] [id number] [place] [address] 70018- 7695 Apr, Major depressive disorder in partial remission F32.4 and PTSD (post-traumatic stress disorder) F43.10 [place] [address], [place] [address]- 9728 Apr, PTSD (post-traumatic stress disorder) F43.10 [place] [address] [place] [address] 49473- 7612 Mar, IBS (irritable bowel syndrome) K58.9 ; PTSD (post-traumatic stress disorder) F43.10 ; COPD (chronic obstructive pulmonary disease) J44.9 ; History of herniated intervertebral disc Z87.39 ; HTN (hypertension) I10 ; Parkinsons G20 ; Annular psoriasis L40.8 and Hypertriglyceridemia E78.1 [place] [address] [place] [address]- 1718 Feb, [facility] [place] [facility] [address] 76611- 8562 Feb, Moderate episode of recurrent major depressive disorder F33.1 and PTSD (post-traumatic stress disorder) F43.10 [place] [address] 27018- 8993 Jan, Onychocryptosis L60.0 [facility] [place] [facility] [address] 04977- 2105 Dec, [place] [address] 73491- 9613 Dec, Dizziness R42 ; PTSD (post-traumatic stress disorder) F43.10 ; Posttraumatic stress disorder F43.10 ; IBS (irritable bowel syndrome) K58.9 ; History of herniated intervertebral disc Z87.39 ; HTN (hypertension) I10 ; Chronic pain G89.29 and Hypercholesterolemia E78.0 [place] [address] 21989- 2724 Dec, [place] [address] 99912- 0478 Dec, [facility] [address] 37021 -6605 Dec, Annular psoriasis L40.8 [facility] [place] [facility] [id number] [place] [address] 87293- 3622 Nov, [facility] [place] [facility] [address] 50897- 6521 Nov, [place] [address] 91864- 2606 Nov, HTN (hypertension) I10 ; Chronic pain G89.29 ; Annular psoriasis L40.8 ; IBS (irritable bowel syndrome) K58.9 and Vision changes H53.9 [facility] [place] [facility] [address] [place] [address]- 1818 Oct, [place] [id number] [place] [address] 45542- 0242 Oct, IBS (irritable bowel syndrome) K58.9 ; PTSD (post-traumatic stress disorder) F43.10 ; HTN (hypertension) I10 ; Depression F32.9 ; History of herniated intervertebral disc Z87.39 ; Anxiety F41.9 ; Chronic pain G89.29 and Hypercholesterolemia E78.0 [place] [address] 37471- 1030 Oct, Major depressive disorder in partial remission F32.4 and PTSD (post-traumatic stress disorder) F43.10 [place] [address] 68290- 8911 Oct, IBS (irritable bowel syndrome) K58.9 ; PTSD (post-traumatic stress disorder) F43.10 ; Major depressive disorder, recurrent episode, severe F33.2 ; Anxiety F41.9 and Impacted cerumen, unspecified laterality H61.20 [place] [id number] [place] [address] 44714- 7073 Oct, Major depressive disorder in partial remission F32.4 ; Posttraumatic stress disorder F43.10 and Anxiety F41.9 [place] [id number] [place] [address] 54710- 5554 Sep, [place] [id number] [place] [address] 44550- 4914 Sep, Anxiety F41.9 ; Major depressive disorder, recurrent episode , mild F33.0 and Posttraumatic stress disorder F43.10 [place] [id number] [place] [address] 41672- 5995 Sep, [place] [id number] [place] [address] 53588- 4888 August, [place] [id number] [place] [address] 74693- 4283 Jul, Contact dermatitis L25.9 [place] [id number] [place] [address] 39867- 2337 Jul, Major depressive disorder, recurrent episode, severe F33.2 ; Posttraumatic stress disorder F43.10 and Anxiety F41.9 [place] [id number] [place] [address] 62740- 3489 Jul, [address] 96014- 6328 Jun, IBS (irritable bowel syndrome) K58.9 ; COPD (chronic obstructive pulmonary disease) J44.9 ; HTN (hypertension) I10 ; Chronic pain G89.29 ; Anxiety F41.9 ; PTSD (post-traumatic stress disorder) F43.10 ; Parkinsons G20 and Hypercholesterolemia E78.0 [place] [id number] [place] [address] 74697- 7371 Jun, [address] 82412- 9341 Jun, Onychocryptosis L60.0 and Onychomycosis B35.1 [place] [id number] [place] [address] 42581- 0409 May, [place] [id number] [place] [address] 50881- 7805 May, IBS (irritable bowel syndrome) K58.9 ; COPD (chronic obstructive pulmonary disease) J44.9 ; History of herniated intervertebral disc Z87.39 ; HTN (hypertension) I10 ; Anxiety F41.9 ; Depression F32.9 and Major depressive disorder in partial remission F32.4 [place] [id number] [place] [address] 99385- 7218 May, IBS (irritable bowel syndrome) K58.9 ; COPD (chronic obstructive pulmonary disease) J44.9 ; History of herniated intervertebral disc Z87.39 ; HTN (hypertension) I10 ; Anxiety F41.9 ; Depression F32.9 and Major depressive disorder in partial remission F32.4 [place] [address], [place] [address]- 4162 04 May, 2015 [place] [id number] [place] [address] 56496- 9137 04 May, 2015 Anxiety F41.9 ; IBS (irritable bowel syndrome) K58.9 and Major depressive disorder in partial remission F32.4 [place] [id number] [place] [address] 95449- 1516 18 Apr, 2015 Encounter for screening mammogram for breast cancer Z12.31 [place] [id number] [place] [address] 10591- 9610 15 Apr, 2015 [place] [id number] [place] [address] 33002- 6099 11 Apr, 2015 [place] [id number] [place] [address] 23648- 0276 Apr, COPD (chronic obstructive pulmonary disease) J44.9 ; HTN ( hypertension) I10 ; Chronic pain G89.29 ; Anxiety F41.9 ; PTSD (post-traumatic stress disorder) F43.10 and IBS (irritable bowel syndrome) K58.9 [place] [id number] [place] [address] 28887- 4044 Apr, PTSD (post-traumatic stress disorder) F43.10 [place] [id number] [place] [address] 22751- 3545 Apr, Onychocryptosis L60.0 and Onychomycosis B35.1 [address] [place] [address] 67657- 9550 Apr, IBS (irritable bowel syndrome) K58.9 ; COPD (chronic obstructive pulmonary disease) J44.9 ; History of herniated intervertebral disc Z87.39 ; HTN (hypertension) I10 ; Chronic pain G89.29 ; Anxiety F41.9 ; Depression F32.9 ; Parkinsons G20 ; Hypercholesteremia E78.0 and Hemorrhoid K64.9 [facility] [place] [facility] [address] [place] [address] 10694- 8086 Mar, [facility] [place] [facility] [id number] [place] [address] 13629- 9326 Mar, Major depressive disorder, recurrent episode, severe F33.2 and Posttraumatic stress disorder F43.10 [facility] [place] [facility] [id number] [place] [address] 47487- 3326 Mar, [facility] [place] [facility] [id number] [place] [address] 49678 2546 Mar, [facility] [place] [facility] [id number] [place] [address] 73996- 1006 Mar, PTSD (post-traumatic stress disorder) F43.10 [place] [address] [place] [address] 45107- 1826 Mar, Onychomycosis B35.1 and Hypertension, benign I10 [facility] [place] [facility] [id number] [place] [address] 25143 2546 Mar, Onychomycosis B35.1 and Hypertension, benign I10 [place] [id number] [place] [address] 05788- 2426 Feb, PTSD (post-traumatic stress disorder) F43.10 [place] [address] [place] [address] 44271- 8346 Feb, [facility] [place] [facility] [id number] [place] [address] 17732 2546 Feb, Major depressive disorder, recurrent episode, severe F33.2 and Posttraumatic stress disorder F43.10 [place] [id number] [place] [address] 17770- 0106 Jan, PTSD (post-traumatic stress disorder) F43.10 [place] [address] [place] [address] 43499 2546 Jan, Rash R21 [facility] [place] [facility] [address], [place] [address]- 4369 Jan, PTSD (post-traumatic stress disorder) F43.10 [facility] [place] [facility] [id number] [place] [address] 04216- 7470 Jan, [facility] [place] [facility] [id number] [place] [address] 80782- 2711 Dec, Neuropathy 355.9 [facility] [place] [facility] [id number] [place] [address] 60709- 0269 Dec, PTSD (post-traumatic stress disorder) F43.10 [place] [id number] [place] [address] 413290- 7346 29 Dec, 2014 MDD (major depressive disorder), recurrent episode, severe 296.33 and PTSD (post-traumatic stress disorder) 309.81 [place] [id number] [place] [address] 98704- 3312 Dec, [facility] [place] [facility] [id number] [place] [address] 26942- 4576 Dec, Ingrown toenail 703.0 [place] [address] [place] [address] 56848- 8244 Dec, Posttraumatic stress disorder 309.81 [place] [id number] [place] [address] 26459- 1748 Nov, Depressive disorder, not elsewhere classified 311 and Anxiety state, unspecified 300.00 [facility] [place] [facility] [address] [place] [address] 85691- 3554 Oct, Depressive disorder, not elsewhere classified 311 and Anxiety state, unspecified 300.00 [place] [id number] [place] [address] 36868- 9362 Oct, Depressive disorder, not elsewhere classified 311 ; Anxiety state, unspecified 300.00 and No condition on [place] II V71.09 [facility] [id number] [place] [address] [id number] Oct, Dental examination V72.2 [facility] [address] [facility] [id number] [place] [address]- 0656 Oct, [facility] [address] [facility] [id number] [place] [address]- 0786 August, [facility] [address] [facility] [id number] [place] [address]- 2086 August, Seizure 780.39 and IBS (irritable bowel syndrome) 564.1 [facility] [address] [id number] [place] [address]- [address] Jul, [facility] [address] [facility] [id number] [place] [address]- 7656 Jul, [facility] [address] [facility] [id number] [place] [address]- [address] Jun, [facility] [id number] [place] [address]- 5986 Jun, [facility] [address] [facility] [id number] [place] [address]- [address] Jun, [facility] [address] [facility] [id number] [place] [address]- 9246 Jun, [facility] [address] [facility] [id number] [place] [address]- [address] Jun, [facility] [address] [facility] [id number] [place] [address]- [address] Jun, [facility] [address] [id number] [place] [address] [address], [facility] [address] [facility] [id number] [place] [address] [address], [facility] [address] [facility] [id number] [place] [address], [facility] [address] [facility] [id number] [place] [address]- 5699 Jun, [facility] [place] [facility] [address] [id number] [place] [address]- 7183 Jun, [facility] [place] [facility] [address] [id number] [place] [address]- 1040 Jun, [facility] [place] [facility] [address] [id number] [place] [address]- 7451 May, [facility] [place] [facility] [address] [id number] [place] [address]- 5875 May, [facility] [place] [facility] [address] [id number] [place] [address]- 1778 Apr, [facility] [place] [facility] [address] [id number] [place] [address]- 9616 Apr, [facility] [place] [facility] [address] [id number] [place] [address]- 7874 Mar, [facility] [place] [facility] [address] [id number] [place] [address]- 2016 Mar, [facility] [place] [facility] [address] [id number] [place] [address]- 6725 Mar, [facility] [place] [facility] [address] [id number] [place] [address]- 7977 Mar, [facility] [place] [facility] [address] [id number] [place] [address]- 0527 Mar, [facility] [place] [facility] [address] [id number] [place] [address]- 3624 Mar, [facility] [place] [facility] [address] [id number] [place] [address]- 2284 Mar, [facility] [place] [facility] [address] [id number] [place] [address]- 7498 Mar, [facility] [place] [facility] [address] [id number] [place] [address]- 7561 Mar, [facility] [place] [facility] [address] [id number] [place] [address]- 0638 12 Mar, 2014 [facility] [place] [facility] [address] [id number] [place] [address]- 8620 Mar, [facility] [place] [facility] [address] [id number] [place] [address]- 2955 Mar, [facility] [place] [facility] [address] [id number] [place] 4199 Mar, [facility] [place] [facility] [address] [id number] [place] [address]- 2291 Mar, [facility] [place] [facility] [address] [id number] [place] [address]- 6418 Mar, [facility] [place] [facility] [address] [id number] [place] [address]- 4967 Mar, [facility] [place] [facility] [address] [id number] [place] [address]- 2617 Mar, [facility] [place] [facility] [address] [id number] [place] [address]- 5496 Mar, [facility] [place] [facility] [address] [id number] [place] [address]- 5508 Mar, [facility] [place] [facility] [address] [facility] [id number] [place] [address]- 0426 Feb, [facility] [place] [facility] [address] [id number] [place] [address]- 7394 Feb, [facility] [place] [facility] [address] [id number] [place] [address]- 1590 Feb, [facility] [place] [facility] [address] [id number] [place] [address]- 9452 Feb, [facility] [place] [facility] [address] [id number] [place] [address]- 1359 Feb, [facility] [place] [facility] [address] [id number] [place] [address]- 1423 Feb, [facility] [place] [facility] [address] [id number] [place] [address]- 3551 Feb, [facility] [place] [facility] [address] [id number] [place] [address]- 1308 Feb, [facility] [place] [facility] [address] [id number] [place] [address]- 5086 Jan, [facility] [place] [facility] [address] [id number] [place] [address]- 6127 Jan, [facility] [place] [facility] [address] [id number] [place] [address]- 7237 Nov, [facility] [place] [facility] [address] [id number] [place] [address]- 5233 Nov, [facility] [place] [facility] [address] [id number] [place] [address]- 6887 Oct, [facility] [place] [facility] [address] [id number] [place] [address] Oct, [facility] [place] [facility] [address] [id number] [place] [address] Oct, [facility] [place] [facility] [address] [id number] [place] [address] Oct, [facility] [place] [facility] [address] [id number] [place] [address] Oct, [facility] [place] [facility] [address] [id number] [place] [address] Sep, [facility] [place] [facility] [address] [id number] [place] [address] Sep, [facility] [place] [facility] [address] [id number] [place] [address] August, [facility] [place] [facility] [address] [id number] [place] [address] August, [facility] [place] [facility] [address] [id number] [place] [address] 24 Jun, 2013 [facility] [place] [facility] [address] [id number] [place] [address] 24 Jun, 2013 [facility] [place] [facility] [address] [id number] [place] [address] Jun, [facility] [place] [facility] [address] [id number] [place] [address] Jun, [facility] [place] [facility] [address] [id number] [place] [address] Jun, [facility] [place] [facility] [address] [id number] [place] [address] Jun, [facility] [place] [facility] [address] [id number] [place] [address] Jun, [facility] [place] [facility] [address] [id number] [place] [address] Jun, [facility] [place] [facility] [address] [id number] [place] [address] Jun, [facility] [place] [facility] [address] [id number] [place] [address] Jun, [facility] [place] [facility] [address] [id number] [place] [address] Jun, [facility] [place] [facility] [address] [id number] [place] [address] Jun, [facility] [place] [facility] [address] [id number] [place] [address] Jun, [facility] [place] [facility] [address] [id number] [place] [address] Jun, [facility] [place] [facility] [address] [id number] [place] [address] May, [facility] [place] [facility] [address] [id number] [place] [address] May, [facility] [place] [facility] [address] [id number] [place] [address] Apr, [facility] [address] [id number] [place] [address] Apr, [facility] [place] [facility] [address] [id number] [place] [address] Mar, [facility] [place] [facility] [address] [id number] [place] [address] Mar, [facility] [place] [facility] [address] [id number] [place] [address] Feb, [facility] [place] [facility] [address] [id number] [place] [address] Feb, [facility] [place] [facility] [address] [id number] [place] [address] [address] Feb, [facility] [place] [facility] [address] [id number] [place] [address] Feb, [facility] [place] [facility] [address] [id number] [place] [address] Feb, [facility] [place] [facility] [address] [id number] [place] [address] Feb, [facility] [place] [facility] [address] [id number] [place] [address] Feb, [facility] [place] [facility] [address] [id number] [place] [address] Jan, [facility] [place] [facility] [address] [id number] [place] [address] Jan, [facility] [place] [facility] [address] [id number] [place] [address] Dec, [facility] [place] [facility] [address] [id number] [place] [address] Dec, [facility] [place] [facility] [address] [id number] [place] [address] Nov, [facility] [address] [id number] [place] [address] Nov, [facility] [place] [facility] [address] [id number] [place] [address] Oct, [facility] [place] [facility] [address] [id number] [place] [address] Sep, [facility] [place] [facility] [address] [id number] [place] [address] Sep, [facility] [place] [facility] [address] [id number] [place] [address] August, [facility] [place] [facility] [address] [id number] [place] [address] August, [facility] [place] [facility] [address] [id number] [place] [address] August, [facility] [place] [facility] [address] [id number] [place] [address] Jul, [facility] [place] [facility] [address] [id number] [place] [address] May, [facility] [place] [facility] [address] [id number] [place] [address] 79[address] May, [facility] [place] [facility] [address] [id number] [address] Apr, [facility] [place] [facility] [address] [id number], [place] [address] Apr, [facility] [place] [facility] [address] [id number] [place] [address] Feb, [facility] [place] [facility] [address] [id number] [place] [address] Feb, [facility] [place] [facility] [address] [id number] [place] [address] Jan, [facility] [place] [facility] [address] [id number] [place] [address] Jan, [facility] [place] [facility] [address] [id number] [place] [address] 16[address] Jan, [facility] [place] [facility] [address] [id number] [place] [address] Nov, [facility] [place] [facility] [address] [id number] [place] [address] Nov, [facility] [place] [facility] [address] [id number] [place] [address]65 Nov, [facility] [place] [facility] [address] [id number] [place] [address] Nov, [facility] [place] [facility] [address] [id number] [place] [address] Nov, [facility] [place] [facility] [address] [id number] [place] [address] Oct, [facility] [place] [facility] [address] [id number] [place] [address] Oct, [facility] [place] [facility] [address] [id number] [place] [address] Oct, [facility] [place] [facility] [address] [id number] [place] [address] 57[address] Oct, [facility] [place] [facility] [address] [id number] [place] [address] 1099 Oct, [facility] [place] [facility] [address] [id number] [place] [address] 4[address] Oct, [facility] [place] [facility] [address] [id number] [place] [address] 6[address] Oct, [facility] [place] [facility] [address] [id number] [place] [address] 74[address] Sep, [facility] [place] [facility] [address] [id number] [place] [address] Sep, [facility] [place] [facility] [address] [id number] [place] [address]26 Sep, [facility] [address] [id number] [place] [address] August, [facility] [address] [id number] [place] [address] Jul, [facility] [address] [id number] [place] [address] Jul, [facility] [address] [id number] [place] [address] 0[address] Jul, [facility] [address] [id number] [place] [address]40 Jul, [facility] [address] [id number] [place] [address] 4[address] Jul, [facility] [address] [id number] [place] [address] Jun, [facility] [address] [id number] [place] [address] 7[address] May, [facility] [address] [id number] [place] [address] [address] Apr, [facility] [address] [id number] [place] [address] 5461 Apr, [facility] [address] [id number] [place] [address] 6[address] Apr, [facility] [place] [facility] [address] [id number] [place] [address] 8709 Apr, [facility] [place] [facility] [address] [id number] [place] [address] 8966 Apr, [facility] [place] [facility] [address] [id number] [place] [address] Apr, [facility] [address] [id number] [place] [address] 6[address] Mar, [facility] [place] [facility] [address] [id number] [place] [address] 5[address] Mar, [facility] [place] [facility] [address] [id number] [place] [address] Feb, [facility] [place] [facility] [address] [id number] [place] [address]- 6752 Nov, [facility] [place] [facility] [address] [id number] [place] [address] 56[address] Jun, [facility] [place] [facility] [address] [id number] [place] [address]- 5290 Apr, [facility] [place] [facility] [address] [id number] [place] [address] 9143 Feb, [facility] [place] [facility] [address] [id number] [place] [address] 237[address] Jan, [facility] [place] [facility] [address] [id number] [place] [address] 0339 Jan, [facility] [place] [facility] [address] [id number] [place] [address]- 0668 Jan, [facility] [place] [facility] [address] [id number] [place] [address]- 9183 Jan, [facility] [place] [facility] [address] [id number] [place] [address]- 4084 Nov, [facility] [place] [facility] [address] [id number] [place] [address] Nov, [facility] [place] [facility] [address] [id number] [place] [address] 4[address] Mar, [facility] [place] [facility] [address] [id number] [place] [address] Mar, [facility] [place] [facility] [address] [id number] [place] [address] 5914 Feb, [facility] [place] [facility] [address] [facility] [id number] [place] [address] Feb, [facility] [place] [facility] [address] [facility] [id number] [place] [address] Jan, [facility] [place] [facility] [address] [facility] [id number] [place] [address] May, IMMUNIZATIONS No Known Immunizations SOCIAL HISTORY Never Assessed REASON FOR VISIT Requests return call PLAN OF CARE VITAL SIGNS MEDICATIONS Medication Instructions Dosage Frequency Start Date End Date Duration Status Lotronex 0.5 MG Orally Twice a day 1 tablet 12h Oct, 30 day(s) Active RESULTS No Results [...]
--- OUTSIDE RECORDS SUMMARY | 2018-03-25 15:23 | XMS REPORT ---
Author NAYA Escalera [facility] eClinicalWorks Address Unknown Phone Unavailable Care Team Providers Care Entry Level Lab Technician Name Role Phone NAYA JACKSON CP Unavailable [...] Medications Procedures Procedure Coding System Code Date LIPID PANEL CPT-4 12141 Apr 02, 2015 COMPREHEN METABOLIC PANEL CPT-4 72100 Apr 02, 2015 COMPLETE CBC W/AUTO DIFF WBC CPT-4 24830 Apr 02, 2015 VENIPUNCT, ROUTINE* CPT-4 58412 Apr 02, 2015 Results Name Result Date Reference Range Unit Abnormality Flag ROUTINE VENIPUNCTURE Summary Purpose eClinicalWorks Submission
--- OUTSIDE RECORDS SUMMARY | 2018-03-25 15:24 | XMS REPORT ---
Author MARYANA Deng [facility] eClinicalWorks Address Unknown Phone Unavailable Care Team Providers Care Beef Splitter Name Role Phone MARYANA ROJO CP Unavailable Allergies, Adverse Reactions, Alerts Substance Reaction Event Type Latex Info Not Available Drug Allergy Problems Problem Type Condition Code Onset Dates Condition Status Problem Posttraumatic stress disorder F43.10 Active Problem Parkinsons G20 Active Problem Major depressive disorder, recurrent episode, severe F33.2 Active Problem COPD (chronic obstructive pulmonary disease) J44.9 Active Assessment Hypercholesteremia E78.0 Active Problem History of herniated intervertebral disc Z87.39 Active Assessment Hemorrhoid K64.9 Active Problem IBS (irritable bowel syndrome) K58.9 Active Problem Anxiety F41.9 Active Problem Depression F32.9 Active Problem HTN (hypertension) I10 Active Problem Chronic pain G89.29 Active Assessment Anxiety F41.9 Active Assessment Chronic pain G89.29 Active Assessment Parkinsons G20 Active Assessment Depression F32.9 Active Assessment COPD (chronic obstructive pulmonary disease) J44.9 Active Assessment IBS (irritable bowel syndrome) K58.9 Active Assessment HTN (hypertension) I10 Active Problem ZOSTAVAX DX V05.8 Active Assessment History of herniated intervertebral disc Z87.39 Active Problem PTSD (post-traumatic stress disorder) F43.10 Active Medications Medication Code System Code Instructions Start Date End Date Status Dosage Neurontin [facility] [address]-49 400 MG Orally 3 times a day 1 capsule Clonazepam [facility] 21594314245 0.5 MG TAKE ONE TABLET BY MOUTH ONCE DAILY IN THE AFTERNOON Benefiber [facility] [address]-68 1 Orally Once a day Apr 30, 2015 as directed Simvastatin [facility] [address]-76 40 MG Orally Once a day 1 tablet in the evening Ventolin HFA [facility] [address]-14 108 (90 Base) MCG/ACT Inhalation every 4 hrs Apr 30, 2015 2 puffs as needed verapamil NDC 0 180 mg 1 ERC orally once a day July 14, 2014 1 Tablet by Oral route 1 time per day take one tablet by mouth daily Bentyl [facility] [address]-52 10 MG Orally Four times a day Apr 30, 2015May 1 capsule Cymbalta [facility] 45462824274 60MG Orally Once a day 1 capsule Indomethacin [facility] 32954378630 25 MG Orally Three times a day 1 capsule with food Acidophilus [facility] 20943988891 100 MG Orally Once a day 1 Anusol-HC [facility] [address]-07 25 MG Rectal Twice a day Apr 30, 2015 May 14, 2015 1 suppository Augmentin [facility] [address]-84 875-125 MG Orally every 12 hrs Apr 30, 2015 May 10, 2015 1 tablet Carbidopa-Levodopa [facility] [address]-77 10-100 mg Jun 09, 2014 1 tablet by Oral route 3 times per day Hydrochlorothiazide [facility] [address]-16 25 MG Orally Once a day 1 tablet Procedures Procedure Coding System Code Date Office Visit, Est Pt., Level 4 CPT-4 15790 Apr 30, 2015 CHEST X-RAY CPT-4 44431 Apr 30, 2015 Vital Signs Date/Time: Apr 30, 2015 Temperature 97.4 F Weight 152.9 lbs Height 64 in BMI 26.24 Index Blood Pressure Diastolic 72 mmHg Blood Pressure Systolic 140 mmHg Cardiac Monitoring Heart Rate 100 bpm Results No Known Results Summary Purpose eClinicalWorks Submission
--- OUTSIDE RECORDS SUMMARY | 2018-03-25 15:24 | XMS REPORT ---
Author Author RUDI DONATO Organization eClinicalWorks Address Unknown Phone Unavailable Care Team Providers Care Event Sales Representative Name Role Phone RUDI DONATO CP Unavailable Allergies No Known Allergies Problems Problem Type Condition Code Onset Dates Condition Status Problem Depression F32.9 Active Problem Chronic pain G89.29 Active Problem Anxiety F41.9 Active Problem Annular psoriasis L40.8 Active Problem Impacted cerumen, unspecified laterality H61.20 Active Problem Dizziness R42 Active Problem History of herniated intervertebral disc Z87.39 Active Problem HTN (hypertension) I10 Active Problem IBS (irritable bowel syndrome) K58.9 Active Problem COPD (chronic obstructive pulmonary disease) J44.9 Active Assessment Onychocryptosis L60.0 Active Problem Posttraumatic stress disorder F43.10 Active Problem Major depressive disorder, recurrent episode, severe F33.2 Active Problem ZOSTAVAX DX V05.8 Active Problem Major depressive disorder in partial remission F32.4 Active Problem PTSD (post-traumatic stress disorder) F43.10 Active Problem Parkinsons G20 Active Medications No Known Medications Procedures Procedure Coding System Code Date Office Visit, Est Pt., Level 3 CPT-4 29994 Feb 01, 2016 DEBRIDE NAIL, 1-5 CPT-4 28097 Feb 01, 2016 Results No Known Results Summary Purpose eClinicalWorks Submission
--- OUTSIDE RECORDS SUMMARY | 2018-03-25 15:24 | XMS REPORT ---
Author JOÃO Boone eClinicalWorks Address Unknown Phone Unavailable Care Team Providers Care Wood Gluer Name Role Phone JOÃO MELGAR Unavailable Allergies No Known Allergies Problems Problem Type Condition ICD-9 Code Onset Dates Condition Status Problem Special [...] neuritis or radiculitis nos. 723.4 Active Problem Depressive disorder, not elsewhere classified 311 Active Problem Anxiety state, unspecified 300.00 Active Problem Acute sinusitis, unspecified 461.9 Active Problem Unspecified constipation 564.00 Active Problem Chronic airway obstruction, not elsewhere classified 496 Active Problem Posttraumatic stress disorder 309.81 Active Problem Urinary tract infection, site not specified 599.0 Active Problem Unspecified essential hypertension 401.9 Active Problem Irritable bowel syndrome 564.1 Active Assessment Posttraumatic stress disorder 309.81 Active Problem Essential and other specified forms [...] patient &/family, 45 minutes, established patient CPT-4 65235 Dec 27, 2014 Results No Known Results Summary Purpose eClinicalWorks Submission
--- OUTSIDE RECORDS SUMMARY | 2018-03-25 15:24 | XMS REPORT ---
Author Author MARYANA ROJO Organization [facility] Address [address] [place] [address] Care Team Providers Care Felt Finishing Supervisor Name Role Phone ROJO MARYANA Unavailable PROBLEMS Type Condition ICD9-CM Code [id number] Code Onset Dates Condition Status SNOMED Code Problem IBS (irritable bowel syndrome) K58.9 Active 79457749 Problem Moderate episode of recurrent major depressive disorder F33.1 Active 507259731 Problem Impacted cerumen, unspecified laterality H61.20 Active 84809470 Problem Irritable bowel syndrome with diarrhea K58.0 Active 194324501 Problem ZOSTAVAX DX V05.8 Active 44727296 Problem Second degree hemorrhoids K64.1 Active 19722699 Problem Dizziness R42 Active 193135509 Problem Annular psoriasis L40.8 Active 720792670 Problem Eczema of both hands L30.9 Active 873264775 Problem Hypertriglyceridemia E78.1 Active 576215047 Problem Major depressive disorder in partial remission F32.4 Active 42435023 Problem COPD (chronic obstructive pulmonary disease) J44.9 Active 47488132 Problem PTSD (post-traumatic stress disorder) F43.10 Active 98644247 Problem Major depressive disorder, recurrent episode, severe F33.2 Active 160542379385 Problem Anxiety F41.9 Active 73024171 Problem Chronic pain G89.29 Active 08124429 Problem HTN (hypertension) I10 Active 95735002 Problem History of herniated intervertebral disc Z87.39 Active 543680682 Problem Depression F32.9 Active 41244174 Problem Parkinsons G20 Active 55943317 ALLERGIES Substance Reaction Event Type Date Status Latex Unknown Drug Allergy Apr, Active SOCIAL HISTORY No smoking Hx information available PLAN OF CARE Activity Details Follow Up 4 Weeks Reason: VITAL SIGNS Height 64 in 2016-05-01 Weight 156 lbs 2016-05-01 Temperature 98.1 degrees Fahrenheit 2016-05-01 Heart Rate 80 bpm 2016-05-01 Respiratory Rate 18 2016-05-01 BMI 26.77 kg/m2 2016-05-01 Blood pressure systolic 130 mmHg 2016-05-01 Blood pressure diastolic 80 mmHg 2016-05-01 MEDICATIONS Medication Instructions Dosage Frequency Start Date End Date Duration Status Cymbalta 60MG Orally Once a day 1 capsule 24h Active Indomethacin 25 MG Orally Three times a day 1 capsule with food 8h Active Clonazepam 0.5 MG Orally TAKE ONE TABLET BY MOUTH ONCE DAILY IN THE AFTERNOON 1 tablet Active Fish Oil 1000 MG Orally Once a day 1 capsule 24h Mar, Apr, 30 day(s) Active Celexa 20 mg Orally Once a day 1 tablet 24h Apr, 90 days Active Verapamil HCl CR 180 MG orally once daily TAKE ONE TABLET BY MOUTH ONCE DAILY 24h Active Neurontin 400 MG Orally 3 times a day 1 capsule 8h Active Acidophilus 100 MG Orally Once a day 1 24h Active RESULTS No Results PROCEDURES Procedure Date Ordered Related Diagnosis Body Site Office Visit, Est Pt., Level 3 May 01, 2016 IMMUNIZATIONS No Known Immunizations
--- OUTSIDE RECORDS SUMMARY | 2018-03-25 15:24 | XMS REPORT ---
Author MILLER Thomson [facility] eClinicalWorks Address Unknown Phone Unavailable Care Team Providers Care Outside Laborer Name Role Phone MILLER FLORES CP Unavailable [...] Active Problem Actinic keratosis 702.0 Active Medications Medication Code System Code Instructions Start Date End Date Status Dosage Klonopin [facility] [address]-51 0.5 MG Orally once per afternoon for anxiety Mar 06, 2015 1 tablet Results No Known Results Summary Purpose eClinicalWorks Submission
--- OUTSIDE RECORDS SUMMARY | 2018-03-25 15:24 | XMS REPORT ---
Author MILLER Thomson eClinicalWorks Address Unknown Phone Unavailable Care Team Providers Care Senior Ui Designer Name Role Phone MILLER FLORES CP Unavailable [...] disorder, recurrent episode, severe F33.2 Active Problem Essential and other specified forms of tremor 333.1 Active Assessment Posttraumatic stress disorder F43.10 Active Problem Palpitations 785.1 Active Problem Unspecified [...] Start Date End Date Status Dosage Klonopin [facility]NOTE 3] [address]-73 0.5 MG Orally once per afternoon for anxiety Mar 06, 2015 1 tablet Hydrochlorothiazide [facility][NOTE 3] [address]-62 25 mg 1 TAB orally once a day Feb 1 tablet by Oral route 1 time per day Indomethacin [facility][NOTE 3] 99659850246 25 MG Orally Three times a day 1 capsule with food Simvastatin [facility][NOTE 3] 33400249892 40 MG TAKE ONE TABLET BY MOUTH DAILY MiraLax [facility][NOTE 3] [address]-51 17 gram/dose July 07, 2014 take 8.5 g mixed with 8 oz. water or juice by Oral route 1 time per day Hyoscyamine Sulfate [facility][NOTE 3] [address]-63 0.375 mg Mar 13, 2014 1 tablet by Oral route every 12 hours Carbidopa-Levodopa [facility][NOTE 3] [address]-26 10-100 mg Jun 09, 2014 1 tablet by Oral route 3 times per day Acidophilus [facility][NOTE 3] 71544973027 100 MG Orally Once a day 1 Colace [facility][NOTE 3] [address]-58 100 MG Orally Once a day 1 capsule as needed Neurontin [facility][NOTE 3] [address]-66 400 MG Orally 3 times a day 1 capsule Cymbalta [facility][NOTE 3] [address]-11 60 MG Orally Once a day Jan 23, 2015 1 capsule verapamil [facility][NOTE 3] 0 180 mg 1 ERC orally once a day July 14, 2014 1 Tablet by Oral route 1 time per day take one tablet by mouth daily Trazodone HCl [facility][NOTE 3] [address]-44 50 MG Orally at bedtime as needed for insomnia Jan 23, 2015 1 tablet Zocor [facility][NOTE 3] [address]-78 40 MG Orally Once a day 1 tablet in the evening Procedures Procedure Coding System Code Date MH Office Visit, Est Pt., Level 4 CPT-4 46501 Mar 06, 2015 Vital Signs Date/Time: Mar 06, 2015 Cardiac Monitoring Heart Rate 108 bpm Weight 152.8 lbs Height 64 in BMI 26.23 Index Blood Pressure Diastolic 70 mmHg Blood Pressure Systolic 140 mmHg Results No Known Results Summary Purpose eClinicalWorks Submission
--- OUTSIDE RECORDS SUMMARY | 2018-03-25 15:24 | XMS REPORT ---
Author MILLER Thomson eClinicalWorks Address Unknown Phone Unavailable Care Team Providers Care Decontamination Worker Name Role Phone MILLER FLORES CP Unavailable Allergies No Known Allergies Problems Problem Type Condition Code Onset Dates Condition Status Problem Anxiety F41.9 Active Problem HTN (hypertension) I10 Active Problem Chronic pain G89.29 Active Problem Annular psoriasis L40.8 Active Problem Moderate episode of recurrent major depressive disorder F33.1 Active Problem Dizziness R42 Active Problem COPD (chronic obstructive pulmonary disease) J44.9 Active Problem History of herniated intervertebral disc Z87.39 Active Problem Impacted cerumen, unspecified laterality H61.20 Active Problem IBS (irritable bowel syndrome) K58.9 Active Problem Major depressive disorder, recurrent episode, severe F33.2 Active Problem Major depressive disorder in partial remission F32.4 Active Problem ZOSTAVAX DX V05.8 Active Problem Parkinsons G20 Active Problem PTSD (post-traumatic stress disorder) F43.10 Active Problem Depression F32.9 Active Medications Medication Code System Code Instructions Start Date End Date Status Dosage Clonazepam [facility] 10342582330 0.5 MG Orally TAKE ONE TABLET BY MOUTH ONCE DAILY IN THE AFTERNOON 1 tablet Results No Known Results Summary Purpose eClinicalWorks Submission
--- OUTSIDE RECORDS SUMMARY | 2018-03-25 15:27 | XMS REPORT | Continuity of Care Document ---
Author Author [facility] Address Unknown Phone Unavailable Allergies Active Description Code Type Severity Reaction Onset Reported/Identified Relationship to Patient Clinical Status Yes No Known Drug Allergies [id number] Drug Allergy Unknown N/A 12/08/2011 Yes Lyrica 50 mg capsule Drug Allergy N/A N/A 02/28/2013 Yes metformin 500 mg tablet,ER ni.retention 24 hr Drug Allergy N/A N/A Yes latex Drug Allergy N/A N/A 03/21/2014 Yes latex [id number] Drug Allergy Moderate RASH 03/13/2016 Medications There is no data. Problems Date Dx Coded Attending Type Code Diagnosis Diagnosed By 05/23/2008 459.81 VENOUS ( PERIPHERAL) INSUFFICIENCY UNSPECIFIED 05/23/2008 MESFIN LEVIN DO K 459.81 VENOUS (PERIPHERAL) INSUFFICIENCY UNSPECIFIED 05/23/2008 TRELL LEVIN DOA K 459.81 VENOUS (PERIPHERAL) INSUFFICIENCY UNSPECIFIED 05/23/2008 459.81 VENOUS ( PERIPHERAL) INSUFFICIENCY UNSPECIFIED 05/23/2008 459.81 VENOUS ( PERIPHERAL) INSUFFICIENCY UNSPECIFIED 05/23/2008 TRELL LEVIN DOA K 459.81 VENOUS (PERIPHERAL) INSUFFICIENCY UNSPECIFIED 05/23/2008 TRELL LEVIN DOA K 459.81 VENOUS (PERIPHERAL) INSUFFICIENCY UNSPECIFIED 05/23/2008 TRELL LEVIN DOA K 459.81 VENOUS (PERIPHERAL) INSUFFICIENCY UNSPECIFIED 05/23/2008 POONAM WONG MESFIN K 459.81 VENOUS (PERIPHERAL) INSUFFICIENCY UNSPECIFIED 05/23/2008 TRELL LEVIN DOA K 459.81 VENOUS (PERIPHERAL) INSUFFICIENCY UNSPECIFIED 05/23/2008 NAYA JACKSON APRN 459.81 VENOUS (PERIPHERAL) INSUFFICIENCY UNSPECIFIED 05/23/2008 TRELL LEVIN DOA K 459.81 VENOUS (PERIPHERAL) INSUFFICIENCY UNSPECIFIED 05/23/2008 RASHAAD PERALES APRN 459.81 VENOUS (PERIPHERAL) INSUFFICIENCY UNSPECIFIED 05/23/2008 THOMAS SOLAR PANEL INSTALLER, RACHID R 459.81 VENOUS (PERIPHERAL) INSUFFICIENCY UNSPECIFIED 05/23/2008 LEVIN DO, MESFIN K 459.81 VENOUS (PERIPHERAL) INSUFFICIENCY UNSPECIFIED 05/23/2008 ANGELLA SOLAR PANEL INSTALLER, RASHAAD A 459.81 VENOUS (PERIPHERAL) INSUFFICIENCY UNSPECIFIED 05/23/2008 ANGELLA SOLAR PANEL INSTALLER, RASHAAD A 459.81 VENOUS (PERIPHERAL) INSUFFICIENCY UNSPECIFIED 05/23/2008 DAWN SOLAR PANEL INSTALLERSTAR 459.81 VENOUS (PERIPHERAL) INSUFFICIENCY UNSPECIFIED 05/23/2008 LEVIN DO, MESFIN K 459.81 VENOUS (PERIPHERAL) INSUFFICIENCY UNSPECIFIED 05/23/2008 LEVIN DO, MESFIN K 459.81 VENOUS (PERIPHERAL) INSUFFICIENCY UNSPECIFIED 05/23/2008 LEVIN DO, MESFIN K 459.81 VENOUS (PERIPHERAL) INSUFFICIENCY UNSPECIFIED 06/06/2008 300.02 GENERALIZED ANXIETY DISORDER 06/06/2008 309.1 ADJUSTMENT REACTION WITH PROLONGED DEPRESSIVE REACTION 06/06/2008 LEVIN DO, MESFIN K 300.02 GENERALIZED ANXIETY DISORDER 06/06/2008 LEVIN DO, MESFIN K 309.1 ADJUSTMENT REACTION WITH PROLONGED DEPRESSIVE REACTION 06/06/2008 LEVIN DO, MESFIN K 300.02 GENERALIZED ANXIETY DISORDER 06/06/2008 LEVIN DO, MESFIN K 309.1 ADJUSTMENT REACTION WITH PROLONGED DEPRESSIVE REACTION 06/06/2008 300.02 GENERALIZED ANXIETY DISORDER 06/06/2008 309.1 ADJUSTMENT REACTION WITH PROLONGED DEPRESSIVE REACTION 06/06/2008 300.02 GENERALIZED ANXIETY DISORDER 06/06/2008 309.1 ADJUSTMENT REACTION WITH PROLONGED DEPRESSIVE REACTION 06/06/2008 LEVIN DO, MESFIN K 300.02 GENERALIZED ANXIETY DISORDER 06/06/2008 LEVIN DO, MESFIN K 309.1 ADJUSTMENT REACTION WITH PROLONGED DEPRESSIVE REACTION 06/06/2008 LEVIN DO, MESFIN K 300.02 GENERALIZED ANXIETY DISORDER 06/06/2008 LEVIN DO, MESFIN K 309.1 ADJUSTMENT REACTION WITH PROLONGED DEPRESSIVE REACTION 06/06/2008 LEVIN DO, MESFIN K 300.02 GENERALIZED ANXIETY DISORDER 06/06/2008 LEVIN DO, MESFIN K 309.1 ADJUSTMENT REACTION WITH PROLONGED DEPRESSIVE REACTION 06/06/2008 LEVIN DO, MESFIN K 300.02 GENERALIZED ANXIETY DISORDER 06/06/2008 LEVIN DO, MESFIN K 309.1 ADJUSTMENT REACTION WITH PROLONGED DEPRESSIVE REACTION 06/06/2008 LEVIN DO, MESFIN K 300.02 GENERALIZED ANXIETY DISORDER 06/06/2008 LEVIN DO, MESFIN K 309.1 ADJUSTMENT REACTION WITH PROLONGED DEPRESSIVE REACTION 06/06/2008 NAYA JACKSON APRN T 300.02 GENERALIZED ANXIETY DISORDER 06/06/2008 NAYA JACKSON APRN T 309.1 ADJUSTMENT REACTION WITH PROLONGED DEPRESSIVE REACTION 06/06/2008 LEVIN DO, MESFIN K 300.02 GENERALIZED ANXIETY DISORDER 06/06/2008 LEVIN DO, MESFIN K 309.1 ADJUSTMENT REACTION WITH PROLONGED DEPRESSIVE REACTION 06/06/2008 ANGELLA SOLAR PANEL INSTALLER, RASHAAD A 300.02 GENERALIZED ANXIETY DISORDER 06/06/2008 ANGELLA SOLAR PANEL INSTALLER, RASHAAD A 309.1 ADJUSTMENT REACTION WITH PROLONGED DEPRESSIVE REACTION 06/06/2008 THOMAS SOLAR PANEL INSTALLER, RACHID R 300.02 GENERALIZED ANXIETY DISORDER 06/06/2008 THOMAS SOLAR PANEL INSTALLER, RACHID R 309.1 ADJUSTMENT REACTION WITH PROLONGED DEPRESSIVE REACTION 06/06/2008 LEVIN DO MESFIN K 300.02 GENERALIZED ANXIETY DISORDER 06/06/2008 LEVIN DO, MESFIN K 309.1 ADJUSTMENT REACTION WITH PROLONGED DEPRESSIVE REACTION 06/06/2008 ANGELLA SOLAR PANEL INSTALLER, RASHAAD A 300.02 GENERALIZED ANXIETY DISORDER 06/06/2008 ANGELLA SOLAR PANEL INSTALLER, RASHAAD A 309.1 ADJUSTMENT REACTION WITH PROLONGED DEPRESSIVE REACTION 06/06/2008 ANGELLA SOLAR PANEL INSTALLER, RASHAAD A 300.02 GENERALIZED ANXIETY DISORDER 06/06/2008 ANGELLA SOLAR PANEL INSTALLER, RASHAAD A 309.1 ADJUSTMENT REACTION WITH PROLONGED DEPRESSIVE REACTION 06/06/2008 MADL SOLAR PANEL INSTALLER, STAR L 300.02 GENERALIZED ANXIETY DISORDER 06/06/2008 MADL SOLAR PANEL INSTALLER, STAR L 309.1 ADJUSTMENT REACTION WITH PROLONGED DEPRESSIVE REACTION 06/06/2008 LEVIN DO, MESFIN K 300.02 GENERALIZED ANXIETY DISORDER 06/06/2008 LEVIN DO, MESFIN K 309.1 ADJUSTMENT REACTION WITH PROLONGED DEPRESSIVE REACTION 06/06/2008 LEVIN DO, MESFIN K 300.02 GENERALIZED ANXIETY DISORDER 06/06/2008 LEVIN DO, MESFIN K 309.1 ADJUSTMENT REACTION WITH PROLONGED DEPRESSIVE REACTION 06/06/2008 LEVIN DO, MESFIN K 300.02 GENERALIZED ANXIETY DISORDER 06/06/2008 LEVIN DO, MESFIN K 309.1 ADJUSTMENT REACTION WITH PROLONGED DEPRESSIVE REACTION 06/16/2008 300.00 AN ANXIETY UNSPEC 06/16/2008 LEVIN DO, MESFIN K 300.00 AN ANXIETY UNSPEC 06/16/2008 LEVIN DO, MESFIN K 300.00 AN ANXIETY UNSPEC 06/16/2008 300.00 AN ANXIETY UNSPEC 06/16/2008 300.00 AN ANXIETY UNSPEC 06/16/2008 LEVIN DO, MESFIN K 300.00 AN ANXIETY UNSPEC 06/16/2008 LEVIN DO, MESFIN K 300.00 AN ANXIETY UNSPEC 06/16/2008 LEVIN DO, MESFIN K 300.00 AN ANXIETY UNSPEC 06/16/2008 LEVIN DO, MESFIN K 300.00 AN ANXIETY UNSPEC 06/16/2008 LEVIN DO, MESFIN K 300.00 AN ANXIETY UNSPEC 06/16/2008 NAYA JACKSON APRN 300.00 AN ANXIETY UNSPEC 06/16/2008 LEVIN DO, MESFIN K 300.00 AN ANXIETY UNSPEC 06/16/2008 ANGELLADELLA GALLO RASHAAD A 300.00 AN ANXIETY UNSPEC 06/16/2008 RACHID GUZMAN APRN 300.00 AN ANXIETY UNSPEC 06/16/2008 LEVIN DO, MESFIN K 300.00 AN ANXIETY UNSPEC 06/16/2008 RASHAAD PERALES APRN A 300.00 AN ANXIETY UNSPEC 06/16/2008 TIFFANI PERALES APRNIDI A 300.00 AN ANXIETY UNSPEC 06/16/2008 STAR SEYMOUR APRN 300.00 AN ANXIETY UNSPEC 06/16/2008 LEVIN DO, MESFIN K 300.00 AN ANXIETY UNSPEC 06/16/2008 LEVIN DO, MESFIN K 300.00 AN ANXIETY UNSPEC 06/16/2008 LEVIN DO, MESFIN K 300.00 AN ANXIETY UNSPEC 11/21/2008 782.3 EDEMA 11/21/2008 LEVIN DO, MESFIN K 782.3 Edema 11/21/2008 LEVIN DO, MESFIN K 782.3 Edema 11/21/2008 782.3 Edema 11/21/2008 782.3 Edema 11/21/2008 LEVIN DO, MESFIN K 782.3 Edema 11/21/2008 LEVIN DO, MESFIN K 782.3 Edema 11/21/2008 LEVIN DO, MESFIN K 782.3 Edema 11/21/2008 LEVIN DO, MESFIN K 782.3 Edema 11/21/2008 LEVIN DO, MESFIN K 782.3 Edema 11/21/2008 NAYA JACKSON APRN 782.3 Edema 11/21/2008 LEVIN DO, MESFIN K 782.3 Edema 11/21/2008 RASHAAD PERALES APRN A 782.3 Edema 11/21/2008 THOMAS SOLAR PANEL INSTALLER, RACHID R 782.3 Edema 11/21/2008 LEVIN DO, MESFIN K 782.3 Edema 11/21/2008 ANGELLA SOLAR PANEL INSTALLER, RASHAAD A 782.3 Edema 11/21/2008 ANGELLA SOLAR PANEL INSTALLER, RASHAAD A 782.3 Edema 11/21/2008 MADL SOLAR PANEL INSTALLER, STAR L 782.3 Edema 11/21/2008 LEVIN DO, MESFIN K 782.3 Edema 11/21/2008 LEVIN DO, MESFIN K 782.3 Edema 11/21/2008 LEVIN DO, MESFIN K 782.3 Edema 01/12/2009 110.1 PARONYCHIA FUNGAL 01/12/2009 703.8 ONYCHOCRYPTOSIS 01/12/2009 LEVIN DO, MESFIN K 110.1 Paronychia Fungal 01/12/2009 LEVIN DO, MESFIN K 703.8 Onychocryptosis 01/12/2009 LEVIN DO, MESFIN K 110.1 Paronychia Fungal 01/12/2009 LEVIN DO, MESFIN K 703.8 Onychocryptosis 01/12/2009 110.1 Paronychia Fungal 01/12/2009 703.8 Onychocryptosis 01/12/2009 110.1 Paronychia Fungal 01/12/2009 703.8 Onychocryptosis 01/12/2009 LEVIN DO, MESFIN K 110.1 Paronychia Fungal 01/12/2009 LEVIN DO, MESFIN K 703.8 Onychocryptosis 01/12/2009 LEVIN DO, MESFIN K 110.1 Paronychia Fungal 01/12/2009 LEVIN DO, MESFIN K 703.8 Onychocryptosis 01/12/2009 LEVIN DO, MESFIN K 110.1 Paronychia Fungal 01/12/2009 LEVIN DO, MESFIN K 703.8 Onychocryptosis 01/12/2009 LEVIN DO, MESFIN K 110.1 Paronychia Fungal 01/12/2009 LEVIN DO, MESFIN K 703.8 Onychocryptosis 01/12/2009 LEVIN DO, MESFIN K 110.1 Paronychia Fungal 01/12/2009 LEVIN DO, MESFIN K 703.8 Onychocryptosis 01/12/2009 RENETTA SOLAR PANEL INSTALLER, NAYA T 110.1 Paronychia Fungal 01/12/2009 RENETTA SOLAR PANEL INSTALLERNAYA Bledsoe T 703.8 Onychocryptosis 01/12/2009 LEVIN DO, MESFIN K 110.1 Paronychia Fungal 01/12/2009 LEVIN DO, MESFIN K 703.8 Onychocryptosis 01/12/2009 ANGELLA SOLAR PANEL INSTALLER, RASHAAD A 110.1 Paronychia Fungal 01/12/2009 ANGELLA SOLAR PANEL INSTALLER, RASHAAD A 703.8 Onychocryptosis 01/12/2009 THOMAS SOLAR PANEL INSTALLER, RACHID R 110.1 Paronychia Fungal 01/12/2009 THOMAS SOLAR PANEL INSTALLER, RACHID R 703.8 Onychocryptosis 01/12/2009 LEVIN DO, MESFIN K 110.1 Paronychia Fungal 01/12/2009 LEVIN DO, MESFIN K 703.8 Onychocryptosis 01/12/2009 ANGELLA SOLAR PANEL INSTALLER, RASHAAD A 110.1 Paronychia Fungal 01/12/2009 ANGELLA SOLAR PANEL INSTALLER, RASHAAD A 703.8 Onychocryptosis 01/12/2009 ANGELLA SOLAR PANEL INSTALLER, RASHAAD A 110.1 Paronychia Fungal 01/12/2009 ANGELLA SOLAR PANEL INSTALLER, RASHAAD A 703.8 Onychocryptosis 01/12/2009 [facility] SOLAR PANEL INSTALLER, STAR L 110.1 Paronychia Fungal 01/12/2009 MADL SOLAR PANEL INSTALLER, STAR L 703.8 Onychocryptosis 01/12/2009 LEVIN DO, MESFIN K 110.1 Paronychia Fungal 01/12/2009 LEVIN DO, MESFIN K 703.8 Onychocryptosis 01/12/2009 LEVIN DO, MESFIN K 110.1 Paronychia Fungal 01/12/2009 LEVIN DO, MESFIN K 703.8 Onychocryptosis 01/12/2009 LEVIN DO, MESFIN K 110.1 Paronychia Fungal 01/12/2009 LEVIN DO, MESFIN K 703.8 Onychocryptosis 03/30/2009 726.90 CAPSULITIS 03/30/2009 LEVIN DO, MESFIN K 726.90 Capsulitis 03/30/2009 LEVIN DO, MESFIN K 726.90 Capsulitis 03/30/2009 726.90 Capsulitis 03/30/2009 726.90 Capsulitis 03/30/2009 LEVIN DO, MESFIN K 726.90 Capsulitis 03/30/2009 LEVIN DO, MESFIN K 726.90 Capsulitis 03/30/2009 LEVIN DO, MESFIN K 726.90 Capsulitis 03/30/2009 LEVIN DO, MESFIN K 726.90 Capsulitis 03/30/2009 LEVIN DO, MESFIN K 726.90 Capsulitis 03/30/2009 ANYA JACKSON APRN 726.90 Capsulitis 03/30/2009 LEVIN DO, MESFIN K 726.90 Capsulitis 03/30/2009 ANGELLA SOLAR PANEL INSTALLER, RASHAAD A 726.90 Capsulitis 03/30/2009 RACHID GUZMAN APRN 726.90 Capsulitis 03/30/2009 LEVIN DO, MESFIN K 726.90 Capsulitis 03/30/2009 ANGELLA GALLO, RASHAAD A 726.90 Capsulitis 03/30/2009 ANGELLA GALLO, RASHAAD A 726.90 Capsulitis 03/30/2009 STAR SEYMOUR APRN 726.90 Capsulitis 03/30/2009 LEVIN DO, MESFIN K 726.90 Capsulitis 03/30/2009 LEVIN DO, MESFIN K 726.90 Capsulitis 03/30/2009 LEVIN DO, MESFIN K 726.90 Capsulitis 08/25/2009 461.1 ACUTE FRONTAL SINUSITIS 08/25/2009 784.0 HEADACHE 08/25/2009 786.05 SHORTNESS OF BREATH 08/25/2009 787.91 DIARRHEA 08/25/2009 LEVIN DO, MESFIN K 461.1 Acute Frontal Sinusitis 08/25/2009 LEVIN DO, MESFIN K 784.0 Headache 08/25/2009 LEVIN DO, MESFIN K 786.05 Shortness Of Breath 08/25/2009 LEVIN DO, MESFIN K 787.91 Diarrhea 08/25/2009 LEVIN DO, MESFIN K 461.1 Acute Frontal Sinusitis 08/25/2009 LEVIN DO, MESFIN K 784.0 Headache 08/25/2009 LEVIN DO, MESFIN K 786.05 Shortness Of Breath 08/25/2009 LEVIN DO, MESFIN K 787.91 Diarrhea 08/25/2009 461.1 Acute Frontal Sinusitis 08/25/2009 784.0 Headache 08/25/2009 786.05 Shortness Of Breath 08/25/2009 787.91 Diarrhea 08/25/2009 461.1 Acute Frontal Sinusitis 08/25/2009 784.0 Headache 08/25/2009 786.05 Shortness Of Breath 08/25/2009 787.91 Diarrhea 08/25/2009 LEVIN DO, MESFIN K 461.1 Acute Frontal Sinusitis 08/25/2009 LEVIN DO, MESFIN K 784.0 Headache 08/25/2009 LEVIN DO, MESIFN K 786.05 Shortness Of Breath 08/25/2009 LEVIN DO, MESFIN K 787.91 Diarrhea 08/25/2009 LEVIN DO, MESFIN K 461.1 Acute Frontal Sinusitis 08/25/2009 LEVIN DO, MESFIN K 784.0 Headache 08/25/2009 LEVIN DO, MESFIN K 786.05 Shortness Of Breath 08/25/2009 LEVIN DO, MESFIN K 787.91 Diarrhea 08/25/2009 LEVIN DO, MESFIN K 461.1 Acute Frontal Sinusitis 08/25/2009 LEVIN DO, MESFIN K 784.0 Headache 08/25/2009 LEVIN DO, MESFIN K 786.05 Shortness Of Breath 08/25/2009 LEVIN DO, MESFIN K 787.91 Diarrhea 08/25/2009 LEVIN DO, MESFIN K 461.1 Acute Frontal Sinusitis 08/25/2009 LEVIN DO, MESFIN K 784.0 Headache 08/25/2009 LEVIN DO, MESFIN K 786.05 Shortness Of Breath 08/25/2009 LEVIN DO, MESFIN K 787.91 Diarrhea 08/25/2009 LEVIN DO, MESFIN K 461.1 Acute Frontal Sinusitis 08/25/2009 LEVIN DO, MESFIN K 784.0 Headache 08/25/2009 LEVIN DO, MESFIN K 786.05 Shortness Of Breath 08/25/2009 LEVIN DO, MESFIN K 787.91 Diarrhea 08/25/2009 NAYA JACKSON APRN 461.1 Acute Frontal Sinusitis 08/25/2009 NAYA JACKSON APRN 784.0 Headache 08/25/2009 NAYA JACKSON APRN 786.05 Shortness Of Breath 08/25/2009 NAYA JACKSON APRN 787.91 Diarrhea 08/25/2009 LEVIN DO, MESFIN K 461.1 Acute Frontal Sinusitis 08/25/2009 LEVIN DO, MESFIN K 784.0 Headache 08/25/2009 LEVIN DO, MESFIN K 786.05 Shortness Of Breath 08/25/2009 LEVIN DO, MESFIN K 787.91 Diarrhea 08/25/2009 ANGELLA SOLAR PANEL INSTALLER, RASHAAD A 461.1 Acute Frontal Sinusitis 08/25/2009 ANGELLA SOLAR PANEL INSTALLER, RASHAAD A 784.0 Headache 08/25/2009 ANGELLA SOLAR PANEL INSTALLER, RASHAAD A 786.05 Shortness Of Breath 08/25/2009 ANGELLA SOLAR PANEL INSTALLER, RASHAAD A 787.91 Diarrhea 08/25/2009 THOMAS SOLAR PANEL INSTALLER, RACHID R 461.1 Acute Frontal Sinusitis 08/25/2009 THOMAS SOLAR PANEL INSTALLER, RACHID R 784.0 Headache 08/25/2009 THOMAS SOLAR PANEL INSTALLER, RACHID R 786.05 Shortness Of Breath 08/25/2009 THOMAS SOLAR PANEL INSTALLER, RACHID R 787.91 Diarrhea 08/25/2009 LEVIN DO, MESFIN K 461.1 Acute Frontal Sinusitis 08/25/2009 LEVIN DO, MESFIN K 784.0 Headache 08/25/2009 LEVIN DO, MESFIN K 786.05 Shortness Of Breath 08/25/2009 LEVIN DO, MESFIN K 787.91 Diarrhea 08/25/2009 ANGELLA SOLAR PANEL INSTALLER, RASHAAD A 461.1 Acute Frontal Sinusitis 08/25/2009 ANGELLA SOLAR PANEL INSTALLER, RASHAAD A 784.0 Headache 08/25/2009 ANGELLA SOLAR PANEL INSTALLER, RASHAAD A 786.05 Shortness Of Breath 08/25/2009 ANGELLA SOLAR PANEL INSTALLER, RASHAAD A 787.91 Diarrhea 08/25/2009 ANGELLA SOLAR PANEL INSTALLER, RASHAAD A 461.1 Acute Frontal Sinusitis 08/25/2009 ANGELLA SOLAR PANEL INSTALLER, RASHAAD A 784.0 Headache 08/25/2009 ANGELLA SOLAR PANEL INSTALLER, RASHAAD A 786.05 Shortness Of Breath 08/25/2009 ANGELLA SOLAR PANEL INSTALLER, RASHAAD A 787.91 Diarrhea 08/25/2009 MADL SOLAR PANEL INSTALLER, STAR L 461.1 Acute Frontal Sinusitis 08/25/2009 MADL SOLAR PANEL INSTALLER, STAR L 784.0 Headache 08/25/2009 MADL SOLAR PANEL INSTALLER, STAR L 786.05 Shortness Of Breath 08/25/2009 MADSukhjinder BAILEYNSTAR 787.91 Diarrhea 08/25/2009 LEVIN DO, MESFIN K 461.1 Acute Frontal Sinusitis 08/25/2009 LEVIN DO, MESFIN K 784.0 Headache 08/25/2009 LEVIN DO, MESFIN K 786.05 Shortness Of Breath 08/25/2009 LEVIN DO, MESFIN K 787.91 Diarrhea 08/25/2009 LEVIN DO, MESFIN K 461.1 Acute Frontal Sinusitis 08/25/2009 LEVIN DO, MESFIN K 784.0 Headache 08/25/2009 LEVIN DO, MESFIN K 786.05 Shortness Of Breath 08/25/2009 LEVIN DO, MESFIN K 787.91 Diarrhea 08/25/2009 LEVIN DO, MESFIN K 461.1 Acute Frontal Sinusitis 08/25/2009 LEVIN DO, MESFIN K 784.0 Headache 08/25/2009 LEVIN DO, MESFIN K 786.05 Shortness Of Breath 08/25/2009 LEVIN DO, MESFIN K 787.91 Diarrhea 09/17/2009 300.01 AN PANIC DIS W/O AGORA 09/17/2009 LEVIN DO, MESFIN K 300.01 AN PANIC DIS W/O AGORA 09/17/2009 LEVIN DO, MESFIN K 300.01 AN PANIC DIS W/O AGORA 09/17/2009 300.01 AN PANIC DIS W/O AGORA 09/17/2009 300.01 AN PANIC DIS W/O AGORA 09/17/2009 LEVIN DO, MESFIN K 300.01 AN PANIC DIS W/O AGORA 09/17/2009 LEVIN DO, MESFIN K 300.01 AN PANIC DIS W/O AGORA 09/17/2009 LEVIN DO, MESFIN K 300.01 AN PANIC DIS W/O AGORA 09/17/2009 LEVIN DO, MESFIN K 300.01 AN PANIC DIS W/O AGORA 09/17/2009 LEVIN DO, MESFIN K 300.01 AN PANIC DIS W/O AGORA 09/17/2009 NAYA JACKSON APRN 300.01 AN PANIC DIS W/O AGORA 09/17/2009 LEVIN DO, MESFIN K 300.01 AN PANIC DIS W/O AGORA 09/17/2009 RASHAAD PERALES APRN A 300.01 AN PANIC DIS W/O AGORA 09/17/2009 THOMAS SOLAR PANEL INSTALLER, RACHID R 300.01 AN PANIC DIS W/O AGORA 09/17/2009 LEVIN DO, MESFIN K 300.01 AN PANIC DIS W/O AGORA 09/17/2009 ANGELLA SOLAR PANEL INSTALLER, RASHAAD A 300.01 AN PANIC DIS W/O AGORA 09/17/2009 ANGELLA SOLAR PANEL INSTALLER, RASHAAD A 300.01 AN PANIC DIS W/O AGORA 09/17/2009 DAWN SOLAR PANEL INSTALLER, STAR L 300.01 AN PANIC DIS W/O AGORA 09/17/2009 LEVIN DO, MESFIN K 300.01 AN PANIC DIS W/O AGORA 09/17/2009 LEVIN DO, MESFIN K 300.01 AN PANIC DIS W/O AGORA 09/17/2009 LEVIN DO, MESFIN K 300.01 AN PANIC DIS W/O AGORA 10/15/2009 401.1 BENIGN ESSENTIAL HYPERTENSION 10/15/2009 780.4 DIZZINESS AND VERTIGO 10/15/2009 V68.1 ISSUE OF REPEAT PRESCRIPTIONS 10/15/2009 LEVIN DO, MESFIN K 401.1 BENIGN ESSENTIAL HYPERTENSION 10/15/2009 LEVIN DO, MESFIN K 780.4 Dizziness And Vertigo 10/15/2009 LEVIN DO, MESFIN K V68.1 Issue Of Repeat Prescriptions 10/15/2009 LEVIN DO, MESFIN K 401.1 BENIGN ESSENTIAL HYPERTENSION 10/15/2009 LEVIN DO, MESFIN K 780.4 Dizziness And Vertigo 10/15/2009 LEVIN DO, MESFIN K V68.1 Issue Of Repeat Prescriptions 10/15/2009 401.1 BENIGN ESSENTIAL HYPERTENSION 10/15/2009 780.4 Dizziness And Vertigo 10/15/2009 V68.1 Issue Of Repeat Prescriptions 10/15/2009 401.1 BENIGN ESSENTIAL HYPERTENSION 10/15/2009 780.4 Dizziness And Vertigo 10/15/2009 V68.1 Issue Of Repeat Prescriptions 10/15/2009 LEVIN DO, MESFIN K 401.1 BENIGN ESSENTIAL HYPERTENSION 10/15/2009 LEVIN DO, MESFIN K 780.4 Dizziness And Vertigo 10/15/2009 LEVIN DO, MESFIN K V68.1 Issue Of Repeat Prescriptions 10/15/2009 LEVIN DO, MESFIN K 401.1 BENIGN ESSENTIAL HYPERTENSION 10/15/2009 LEVIN DO, MESFIN K 780.4 Dizziness And Vertigo 10/15/2009 LEVIN DO, MESFIN K V68.1 Issue Of Repeat Prescriptions 10/15/2009 LEVIN DO, MESFIN K 401.1 BENIGN ESSENTIAL HYPERTENSION 10/15/2009 LEVIN DO, MESFIN K 780.4 Dizziness And Vertigo 10/15/2009 LEVIN DO, MESFIN K V68.1 Issue Of Repeat Prescriptions 10/15/2009 LEVIN DO, MESFIN K 401.1 BENIGN ESSENTIAL HYPERTENSION 10/15/2009 LEVIN DO, MESFIN K 780.4 Dizziness And Vertigo 10/15/2009 LEVIN DO, MESFIN K V68.1 Issue Of Repeat Prescriptions 10/15/2009 LEVIN DO, MESFIN K 401.1 BENIGN ESSENTIAL HYPERTENSION 10/15/2009 LEVIN DO, MESFIN K 780.4 Dizziness And Vertigo 10/15/2009 LEVIN DO, MESFIN K V68.1 Issue Of Repeat Prescriptions 10/15/2009 NAYA JACKSON APRN 401.1 BENIGN ESSENTIAL HYPERTENSION 10/15/2009 NAYA JACKSON APRN 780.4 Dizziness And Vertigo 10/15/2009 NAYA JACKSON APRN V68.1 Issue Of Repeat Prescriptions 10/15/2009 LEVIN DO, MESFIN K 401.1 BENIGN ESSENTIAL HYPERTENSION 10/15/2009 LEVIN DO, MESFIN K 780.4 Dizziness And Vertigo 10/15/2009 LEVIN DO, MESFIN K V68.1 Issue Of Repeat Prescriptions 10/15/2009 ANGELLA SOLAR PANEL INSTALLER, RASHAAD A 401.1 BENIGN ESSENTIAL HYPERTENSION 10/15/2009 ANGELLADELLA BAILEYN, RASHAAD A 780.4 Dizziness And Vertigo 10/15/2009 ANGELLA BAILEYN, RASHAAD A V68.1 Issue Of Repeat Prescriptions 10/15/2009 THOMAS BAILEYN, RACHID R 401.1 BENIGN ESSENTIAL HYPERTENSION 10/15/2009 THOMAS SOLAR PANEL INSTALLER, RACHID R 780.4 Dizziness And Vertigo 10/15/2009 THOMAS SOLAR PANEL INSTALLER, RACHID R V68.1 Issue Of Repeat Prescriptions 10/15/2009 LEVIN DO, MESFIN K 401.1 BENIGN ESSENTIAL HYPERTENSION 10/15/2009 LEVIN DO, MESFIN K 780.4 Dizziness And Vertigo 10/15/2009 LEVIN DO, MESFIN K V68.1 Issue Of Repeat Prescriptions 10/15/2009 ANGELLA SOLAR PANEL INSTALLER, RASHAAD A 401.1 BENIGN ESSENTIAL HYPERTENSION 10/15/2009 ANGELLA SOLAR PANEL INSTALLER, RASHAAD A 780.4 Dizziness And Vertigo 10/15/2009 ANGELLA SOLAR PANEL INSTALLER, RASHAAD A V68.1 Issue Of Repeat Prescriptions 10/15/2009 ANGELLA SOLAR PANEL INSTALLER, RASHAAD A 401.1 BENIGN ESSENTIAL HYPERTENSION 10/15/2009 ANGELLA SOLAR PANEL INSTALLER, RASHAAD A 780.4 Dizziness And Vertigo 10/15/2009 ANGELLA SOLAR PANEL INSTALLER, RASHAAD A V68.1 Issue Of Repeat Prescriptions 10/15/2009 MADL SOLAR PANEL INSTALLER, STAR L 401.1 BENIGN ESSENTIAL HYPERTENSION 10/15/2009 MADL SOLAR PANEL INSTALLER, STAR L 780.4 Dizziness And Vertigo 10/15/2009 MADL SOLAR PANEL INSTALLER, STAR L V68.1 Issue Of Repeat Prescriptions 10/15/2009 LEVIN DO, MESFIN K 401.1 BENIGN ESSENTIAL HYPERTENSION 10/15/2009 LEVIN DO, MESFIN K 780.4 Dizziness And Vertigo 10/15/2009 LEVIN DO, MESFIN K V68.1 Issue Of Repeat Prescriptions 10/15/2009 LEVIN DO, MESFIN K 401.1 BENIGN ESSENTIAL HYPERTENSION 10/15/2009 LEVIN DO, MESFIN K 780.4 Dizziness And Vertigo 10/15/2009 LEVIN DO, MESFIN K V68.1 Issue Of Repeat Prescriptions 10/15/2009 LEVIN DO, MESFIN K 401.1 BENIGN ESSENTIAL HYPERTENSION 10/15/2009 LEVIN DO, MESFIN K 780.4 Dizziness And Vertigo 10/15/2009 LEVIN DO, MESFIN K V68.1 Issue Of Repeat Prescriptions 12/04/2009 709.9 SKIN LESIONS 12/04/2009 LEVIN DO, MESFIN K 709.9 Skin Lesions 12/04/2009 LEVIN DO, MESFIN K 709.9 Skin Lesions 12/04/2009 709.9 Skin Lesions 12/04/2009 709.9 Skin Lesions 12/04/2009 LEVIN DO, MESFIN K 709.9 Skin Lesions 12/04/2009 LEVIN DO, MESFIN K 709.9 Skin Lesions 12/04/2009 LEVIN DO, MESFIN K 709.9 Skin Lesions 12/04/2009 LEVIN DO, MESFIN K 709.9 Skin Lesions 12/04/2009 ELVIN DO, MESFIN K 709.9 Skin Lesions 12/04/2009 NAYA JACKSON APRN 709.9 Skin Lesions 12/04/2009 LEVIN DO, MESFIN K 709.9 Skin Lesions 12/04/2009 ANGELLA SOLAR PANEL INSTALLER, RASHAAD A 709.9 Skin Lesions 12/04/2009 THOMAS SOLAR PANEL INSTALLER, RACHID R 709.9 Skin Lesions 12/04/2009 LEVIN DO, MESFIN K 709.9 Skin Lesions 12/04/2009 ANGELLA SOLAR PANEL INSTALLER, RASHAAD A 709.9 Skin Lesions 12/04/2009 ANGELLA SOLAR PANEL INSTALLER, RASHAAD A 709.9 Skin Lesions 12/04/2009 DAWN SOLAR PANEL INSTALLER, STAR Slaughter 709.9 Skin Lesions 12/04/2009 LEVIN DO, MESFIN K 709.9 Skin Lesions 12/04/2009 LEVIN DO, MESFIN K 709.9 Skin Lesions 12/04/2009 LVEIN DO, MESFIN K 709.9 Skin Lesions 12/10/2009 692.3 CONTACT DERMATITIS AND OTHER ECZEMA DUE TO DRUGS AND MEDICINES IN CONTACT WITH SKIN 12/10/2009 POONAM DO, MESFIN K 692.3 Contact Dermatitis And Other Eczema Due To Drugs And Medicines In Contact With Skin 12/10/2009 POONAM WONG, MESFIN K 692.3 Contact Dermatitis And Other Eczema Due To Drugs And Medicines In Contact With Skin 12/10/2009 692.3 Contact Dermatitis And Other Eczema Due To Drugs And Medicines In Contact With Skin 12/10/2009 692.3 Contact Dermatitis And Other Eczema Due To Drugs And Medicines In Contact With Skin 12/10/2009 POONAM WONG, MESFIN K 692.3 Contact Dermatitis And Other Eczema Due To Drugs And Medicines In Contact With Skin 12/10/2009 LEVIN DO, MESFIN K 692.3 Contact Dermatitis And Other Eczema Due To Drugs And Medicines In Contact With Skin 12/10/2009 POONAM WONG, MESFIN K 692.3 Contact Dermatitis And Other Eczema Due To Drugs And Medicines In Contact With Skin 12/10/2009 LEVIN DO, MESFIN K 692.3 Contact Dermatitis And Other Eczema Due To Drugs And Medicines In Contact With Skin 12/10/2009 LEVIN DO, MESFIN K 692.3 Contact Dermatitis And Other Eczema Due To Drugs And Medicines In Contact With Skin 12/10/2009 NAYA JACKSON APRN 692.3 Contact Dermatitis And Other Eczema Due To Drugs And Medicines In Contact With Skin 12/10/2009 LEVIN DO, MESFIN K 692.3 Contact Dermatitis And Other Eczema Due To Drugs And Medicines In Contact With Skin 12/10/2009 ANGELLA SOLAR PANEL INSTALLER, RASHAAD A 692.3 Contact Dermatitis And Other Eczema Due To Drugs And Medicines In Contact With Skin 12/10/2009 RACHID GUZMAN APRN 692.3 Contact Dermatitis And Other Eczema Due To Drugs And Medicines In Contact With Skin 12/10/2009 MESFIN LEVIN DO K 692.3 Contact Dermatitis And Other Eczema Due To Drugs And Medicines In Contact With Skin 12/10/2009 ANGELLADELLA BAILEYN, RASHAAD A 692.3 Contact Dermatitis And Other Eczema Due To Drugs And Medicines In Contact With Skin 12/10/2009 ANGELLA BAILEYN, RASHAAD A 692.3 Contact Dermatitis And Other Eczema Due To Drugs And Medicines In Contact With Skin 12/10/2009 STAR SEYMOUR APRN 692.3 Contact Dermatitis And Other Eczema Due To Drugs And Medicines In Contact With Skin 12/10/2009 POONAM WONG MESFIN K 692.3 Contact Dermatitis And Other Eczema Due To Drugs And Medicines In Contact With Skin 12/10/2009 POONAM WONG MESFIN K 692.3 Contact Dermatitis And Other Eczema Due To Drugs And Medicines In Contact With Skin 12/10/2009 LEVIN DO, MESFIN K 692.3 Contact Dermatitis And Other Eczema Due To Drugs And Medicines In Contact With Skin 12/29/2009 465.9 UPPER RESPIRATORY INFECTION 12/29/2009 477.9 RHINITIS 12/29/2009 786.2 COUGH 12/29/2009 LEVIN DO, MESFIN K 465.9 Upper Respiratory Infection 12/29/2009 LEVIN DO, MESFIN K 477.9 Rhinitis 12/29/2009 LEVIN DO, MESFIN K 786.2 Cough 12/29/2009 LEVIN DO, MESFIN K 465.9 Upper Respiratory Infection 12/29/2009 LEVIN DO, MESFIN K 477.9 Rhinitis 12/29/2009 LEVIN DO, MESFIN K 786.2 Cough 12/29/2009 465.9 Upper Respiratory Infection 12/29/2009 477.9 Rhinitis 12/29/2009 786.2 Cough 12/29/2009 465.9 Upper Respiratory Infection 12/29/2009 477.9 Rhinitis 12/29/2009 786.2 Cough 12/29/2009 LEVIN DO, MESFIN K 465.9 Upper Respiratory Infection 12/29/2009 LEVIN DO, MESFIN K 477.9 Rhinitis 12/29/2009 LEVIN DO, MESFIN K 786.2 Cough 12/29/2009 LEVIN DO, MESFIN K 465.9 Upper Respiratory Infection 12/29/2009 LEVIN DO, MESFIN K 477.9 Rhinitis 12/29/2009 LEVIN DO, MESFIN K 786.2 Cough 12/29/2009 LEVIN DO, MESFIN K 465.9 Upper Respiratory Infection 12/29/2009 LEVIN DO, MESFIN K 477.9 Rhinitis 12/29/2009 LEVIN DO, MESFIN K 786.2 Cough 12/29/2009 LEVIN DO, MESFIN K 465.9 Upper Respiratory Infection 12/29/2009 LEVIN DO, MESFIN K 477.9 Rhinitis 12/29/2009 LEVIN DO, MESFIN K 786.2 Cough 12/29/2009 LEVIN DO, MESFIN K 465.9 Upper Respiratory Infection 12/29/2009 LEVIN DO, MESFIN K 477.9 Rhinitis 12/29/2009 LEVIN DO, MESFIN K 786.2 Cough 12/29/2009 RENETTA SOLAR PANEL INSTALLER, NAYA T 465.9 Upper Respiratory Infection 12/29/2009 RNEETTA SOLAR PANEL INSTALLER, NAYA T 477.9 Rhinitis 12/29/2009 RENETTA SOLAR PANEL INSTALLER, NAYA T 786.2 Cough 12/29/2009 LEVIN DO, MESFIN K 465.9 Upper Respiratory Infection 12/29/2009 LEVIN DO, MESFIN K 477.9 Rhinitis 12/29/2009 LEVIN DO, MESFIN K 786.2 Cough 12/29/2009 ANGELLA SOLAR PANEL INSTALLER, RAHSAAD A 465.9 Upper Respiratory Infection 12/29/2009 ANGELLA SOLAR PANEL INSTALLER, RASHAAD A 477.9 Rhinitis 12/29/2009 ANGELLA SOLAR PANEL INSTALLER, RASHAAD A 786.2 Cough 12/29/2009 THOMAS SOLAR PANEL INSTALLER, RACHID R 465.9 Upper Respiratory Infection 12/29/2009 THOMAS SOLAR PANEL INSTALLER, RACHID R 477.9 Rhinitis 12/29/2009 THOMAS SOLAR PANEL INSTALLER, RACHID R 786.2 Cough 12/29/2009 LEVIN DO, MESFIN K 465.9 Upper Respiratory Infection 12/29/2009 LEVIN DO, MESFIN K 477.9 Rhinitis 12/29/2009 LEVIN DO, MESFIN K 786.2 Cough 12/29/2009 ANGELLA SOLAR PANEL INSTALLER, RASHAAD A 465.9 Upper Respiratory Infection 12/29/2009 ANGELLA SOLAR PANEL INSTALLER, RASHAAD A 477.9 Rhinitis 12/29/2009 ANGELLA SOLAR PANEL INSTALLER, RASHAAD A 786.2 Cough 12/29/2009 ANGELLA SOLAR PANEL INSTALLER, RASHAAD A 465.9 Upper Respiratory Infection 12/29/2009 ANGELLA SOLAR PANEL INSTALLER, RASHAAD A 477.9 Rhinitis 12/29/2009 ANGELLA SOLAR PANEL INSTALLER, RASHAAD A 786.2 Cough 12/29/2009 MADL SOLAR PANEL INSTALLER, STAR L 465.9 Upper Respiratory Infection 12/29/2009 MADL SOLAR PANEL INSTALLER, STAR L 477.9 Rhinitis 12/29/2009 MADL SOLAR PANEL INSTALLER, STAR L 786.2 Cough 12/29/2009 LEVIN DO, MESFIN K 465.9 Upper Respiratory Infection 12/29/2009 LEVIN DO, MESFIN K 477.9 Rhinitis 12/29/2009 LEVIN DO, MESFIN K 786.2 Cough 12/29/2009 LEVIN DO, MESFIN K 465.9 Upper Respiratory Infection 12/29/2009 LEVIN DO, MESFIN K 477.9 Rhinitis 12/29/2009 LEVIN DO, MESFIN K 786.2 Cough 12/29/2009 LEVIN DO, MESFIN K 465.9 Upper Respiratory Infection 12/29/2009 LEVIN DO, MESFIN K 477.9 Rhinitis 12/29/2009 LEVIN DO, MESFIN K 786.2 Cough 02/13/2010 564.00 CONSTIPATION 02/13/2010 LEVIN DO, MESFIN K 564.00 Constipation 02/13/2010 LEVIN DO, MESFIN K 564.00 Constipation 02/13/2010 564.00 Constipation 02/13/2010 564.00 Constipation 02/13/2010 LEVIN DO, MESFIN K 564.00 Constipation 02/13/2010 LEVIN DO, MESFIN K 564.00 Constipation 02/13/2010 LEVIN DO, MESFIN K 564.00 Constipation 02/13/2010 LEVIN DO, MESFIN K 564.00 Constipation 02/13/2010 LEVIN DO, MESFIN K 564.00 Constipation 02/13/2010 NAYA JACKSON APRN 564.00 Constipation 02/13/2010 LEVIN DO, MESFIN K 564.00 Constipation 02/13/2010 ANGELLA SOLAR PANEL INSTALLER, RASHAAD A 564.00 Constipation 02/13/2010 RACHID GUZMAN APRN 564.00 Constipation 02/13/2010 LEVIN DO, MESFIN K 564.00 Constipation 02/13/2010 ANGELLA SOLAR PANEL INSTALLER, RASHAAD A 564.00 Constipation 02/13/2010 ANGELLA SOLAR PANEL INSTALLER, RASHAAD A 564.00 Constipation 02/13/2010 STAR SEYMOUR APRN 564.00 Constipation 02/13/2010 LEVIN DO, MESFIN K 564.00 Constipation 02/13/2010 LEVIN DO, MESFIN K 564.00 Constipation 02/13/2010 LEVIN DO, MESFIN K 564.00 Constipation 05/10/2010 381.81 EUSTACHIAN TUBE DYSFUNCTION 05/10/2010 461.9 SINUSITIS ACUTE 05/10/2010 LEVIN DO, MESFIN K 381.81 Eustachian Tube Dysfunction 05/10/2010 LEVIN DO, MESFIN K 461.9 Sinusitis Acute 05/10/2010 LEVIN DO, MESFIN K 381.81 Eustachian Tube Dysfunction 05/10/2010 LEVIN DO, MESFIN K 461.9 Sinusitis Acute 05/10/2010 381.81 Eustachian Tube Dysfunction 05/10/2010 461.9 Sinusitis Acute 05/10/2010 381.81 Eustachian Tube Dysfunction 05/10/2010 461.9 Sinusitis Acute 05/10/2010 LEVIN DO, MESFIN K 381.81 Eustachian Tube Dysfunction 05/10/2010 LEVIN DO, MESFIN K 461.9 Sinusitis Acute 05/10/2010 LEVIN DO, MESFIN K 381.81 Eustachian Tube Dysfunction 05/10/2010 LEVIN DO, MESFIN K 461.9 Sinusitis Acute 05/10/2010 LEVIN DO, MESFIN K 381.81 Eustachian Tube Dysfunction 05/10/2010 LEVIN DO, MESFIN K 461.9 Sinusitis Acute 05/10/2010 LEVIN DO, MESFIN K 381.81 Eustachian Tube Dysfunction 05/10/2010 LEVIN DO, MESFIN K 461.9 Sinusitis Acute 05/10/2010 LEVIN DO, MESFIN K 381.81 Eustachian Tube Dysfunction 05/10/2010 LEVIN DO, MESFIN K 461.9 Sinusitis Acute 05/10/2010 NAYA JACKSON APRN 381.81 Eustachian Tube Dysfunction 05/10/2010 NAYA JACKSON APRN 461.9 Sinusitis Acute 05/10/2010 LEVIN DO, MESFIN K 381.81 Eustachian Tube Dysfunction 05/10/2010 LEVIN DO, MESFIN K 461.9 Sinusitis Acute 05/10/2010 ANGELLA SOLAR PANEL INSTALLER, RASHAAD A 381.81 Eustachian Tube Dysfunction 05/10/2010 ANGELLA SOLAR PANEL INSTALLER, RASHAAD A 461.9 Sinusitis Acute 05/10/2010 THOMAS SOLAR PANEL INSTALLER, RACHID R 381.81 Eustachian Tube Dysfunction 05/10/2010 THOMAS SOLAR PANEL INSTALLER, RACHID R 461.9 Sinusitis Acute 05/10/2010 LEVIN DO, MESFIN K 381.81 Eustachian Tube Dysfunction 05/10/2010 LEVIN DO, MESFIN K 461.9 Sinusitis Acute 05/10/2010 ANGELLA SOLAR PANEL INSTALLER, RASHAAD A 381.81 Eustachian Tube Dysfunction 05/10/2010 ANGELLA SOLAR PANEL INSTALLER, RASHAAD A 461.9 Sinusitis Acute 05/10/2010 ANGELLA SOLAR PANEL INSTALLER, RASHAAD A 381.81 Eustachian Tube Dysfunction 05/10/2010 ANGELLA SOLAR PANEL INSTALLER, RASHAAD A 461.9 Sinusitis Acute 05/10/2010 MADL SOLAR PANEL INSTALLER, STAR L 381.81 Eustachian Tube Dysfunction 05/10/2010 MADL SOLAR PANEL INSTALLER, STAR L 461.9 Sinusitis Acute 05/10/2010 LEVIN DO, MESFIN K 381.81 Eustachian Tube Dysfunction 05/10/2010 LEVIN DO, MESFIN K 461.9 Sinusitis Acute 05/10/2010 LEVIN DO, MESFIN K 381.81 Eustachian Tube Dysfunction 05/10/2010 LEVIN DO, MESFIN K 461.9 Sinusitis Acute 05/10/2010 LEVIN DO, MESFIN K 381.81 Eustachian Tube Dysfunction 05/10/2010 LEVIN DO, MESFIN K 461.9 Sinusitis Acute 06/25/2010 272.4 HYPERLIPIDEMIA 06/25/2010 339.10 TENSION TYPE HEADACHE UNSPECIFIED 06/25/2010 V18.0 FAM HX DIABETES MELLITUS 06/25/2010 LEVIN DO, MESFIN K 272.4 HYPERLIPIDEMIA 06/25/2010 LEVIN DO, MESFIN K 339.10 TENSION TYPE HEADACHE UNSPECIFIED 06/25/2010 LEVIN DO, MESFIN K V18.0 FAM HX DIABETES MELLITUS 06/25/2010 LEVIN DO, MESFIN K 272.4 HYPERLIPIDEMIA 06/25/2010 LEVIN DO, MESFIN K 339.10 TENSION TYPE HEADACHE UNSPECIFIED 06/25/2010 LEVIN DO, MESFIN K V18.0 FAM HX DIABETES MELLITUS 06/25/2010 272.4 HYPERLIPIDEMIA 06/25/2010 339.10 TENSION TYPE HEADACHE UNSPECIFIED 06/25/2010 V18.0 FAM HX DIABETES MELLITUS 06/25/2010 272.4 HYPERLIPIDEMIA 06/25/2010 339.10 TENSION TYPE HEADACHE UNSPECIFIED 06/25/2010 V18.0 FAM HX DIABETES MELLITUS 06/25/2010 LEVIN DO, MESFIN K 272.4 HYPERLIPIDEMIA 06/25/2010 LEVIN DO, MESFIN K 339.10 TENSION TYPE HEADACHE UNSPECIFIED 06/25/2010 LEVIN DO, MESFIN K V18.0 FAM HX DIABETES MELLITUS 06/25/2010 LEVIN DO, MESFIN K 272.4 HYPERLIPIDEMIA 06/25/2010 LEVIN DO, MESFIN K 339.10 TENSION TYPE HEADACHE UNSPECIFIED 06/25/2010 LEVIN DO, MESFIN K V18.0 FAM HX DIABETES MELLITUS 06/25/2010 LEVIN DO, MESFIN K 272.4 HYPERLIPIDEMIA 06/25/2010 LEVIN DO, MESFIN K 339.10 TENSION TYPE HEADACHE UNSPECIFIED 06/25/2010 LEVIN DO, MESFIN K V18.0 FAM HX DIABETES MELLITUS 06/25/2010 LEVIN DO, MESFIN K 272.4 HYPERLIPIDEMIA 06/25/2010 LEVIN DO, MESFIN K 339.10 TENSION TYPE HEADACHE UNSPECIFIED 06/25/2010 LEVIN DO, MESFIN K V18.0 FAM HX DIABETES MELLITUS 06/25/2010 LEVIN DO, MESFIN K 272.4 HYPERLIPIDEMIA 06/25/2010 LEVIN DO, MESFIN K 339.10 TENSION TYPE HEADACHE UNSPECIFIED 06/25/2010 LEVIN DO, MESFIN K V18.0 FAM HX DIABETES MELLITUS 06/25/2010 NAYA JACKSON APRN 272.4 HYPERLIPIDEMIA 06/25/2010 NAYA JACKSON APRN 339.10 TENSION TYPE HEADACHE UNSPECIFIED 06/25/2010 NAYA JACKSON APRN V18.0 FAM HX DIABETES MELLITUS 06/25/2010 LEVIN DO, MESFIN K 272.4 HYPERLIPIDEMIA 06/25/2010 LEVIN DO, MESFIN K 339.10 TENSION TYPE HEADACHE UNSPECIFIED 06/25/2010 LEVIN DO, MESFIN K V18.0 FAM HX DIABETES MELLITUS 06/25/2010 ANGELLARASHAAD Bledsoe APRN A 272.4 HYPERLIPIDEMIA 06/25/2010 ANGELLA SOLAR PANEL INSTALLER, RASHAAD A 339.10 TENSION TYPE HEADACHE UNSPECIFIED 06/25/2010 ANGELLA SOLAR PANEL INSTALLER, RASHAAD A V18.0 FAM HX DIABETES MELLITUS 06/25/2010 THOMAS SOLAR PANEL INSTALLER, RACHID R 272.4 HYPERLIPIDEMIA 06/25/2010 THOMAS SOLAR PANEL INSTALLER, RACHID R 339.10 TENSION TYPE HEADACHE UNSPECIFIED 06/25/2010 THOMAS SOLAR PANEL INSTALLER, RACHID R V18.0 FAM HX DIABETES MELLITUS 06/25/2010 LEVIN DO, MESFIN K 272.4 HYPERLIPIDEMIA 06/25/2010 LEVIN DO, MESFIN K 339.10 TENSION TYPE HEADACHE UNSPECIFIED 06/25/2010 LEVIN DO, MESFIN K V18.0 FAM HX DIABETES MELLITUS 06/25/2010 ANGELLA SOLAR PANEL INSTALLER, RASHAAD A 272.4 HYPERLIPIDEMIA 06/25/2010 ANGELLA SOLAR PANEL INSTALLER, RASHAAD A 339.10 TENSION TYPE HEADACHE UNSPECIFIED 06/25/2010 ANGELLA SOLAR PANEL INSTALLER, RASHAAD A V18.0 FAM HX DIABETES MELLITUS 06/25/2010 ANGELLA SOLAR PANEL INSTALLER, RASHAAD A 272.4 HYPERLIPIDEMIA 06/25/2010 ANGELLA SOLAR PANEL INSTALLER, RASHAAD A 339.10 TENSION TYPE HEADACHE UNSPECIFIED 06/25/2010 ANGELLA SOLAR PANEL INSTALLER, RASHAAD A V18.0 FAM HX DIABETES MELLITUS 06/25/2010 LUZ MARIAL SOLAR PANEL INSTALLER, STAR L 272.4 HYPERLIPIDEMIA 06/25/2010 LUZ MARIA SOLAR PANEL INSTALLER, STAR L 339.10 TENSION TYPE HEADACHE UNSPECIFIED 06/25/2010 LUZ MARIA SOLAR PANEL INSTALLER, STAR L V18.0 FAM HX DIABETES MELLITUS 06/25/2010 LEVIN DO, MESFIN K 272.4 HYPERLIPIDEMIA 06/25/2010 LEVIN DO, MESFIN K 339.10 TENSION TYPE HEADACHE UNSPECIFIED 06/25/2010 LEVIN DO, MESFIN K V18.0 FAM HX DIABETES MELLITUS 06/25/2010 LEVIN DO, MESFIN K 272.4 HYPERLIPIDEMIA 06/25/2010 LEVIN DO, MESFIN K 339.10 TENSION TYPE HEADACHE UNSPECIFIED 06/25/2010 LEVIN DO, MESFIN K V18.0 FAM HX DIABETES MELLITUS 06/25/2010 LEVIN DO, MESFIN K 272.4 HYPERLIPIDEMIA 06/25/2010 LEVIN DO, MESFIN K 339.10 TENSION TYPE HEADACHE UNSPECIFIED 06/25/2010 LEVIN DO, MESFIN K V18.0 FAM HX DIABETES MELLITUS 07/12/2010 719.41 PAIN IN JOINT INVOLVING SHOULDER REGION 07/12/2010 840.9 SPRAIN OF UNSPECIFIED SITE OF SHOULDER AND UPPER ARM 07/12/2010 LEVIN DO, MESFIN K 719.41 Pain In Joint Involving Shoulder Region 07/12/2010 LEVIN DO, MESFIN K 840.9 Sprain Of Unspecified Site Of Shoulder And Upper Arm 07/12/2010 LEVIN DO, MESFIN K 719.41 Pain In Joint Involving Shoulder Region 07/12/2010 LEVIN DO, MESFIN K 840.9 Sprain Of Unspecified Site Of Shoulder And Upper Arm 07/12/2010 719.41 Pain In Joint Involving Shoulder Region 07/12/2010 840.9 Sprain Of Unspecified Site Of Shoulder And Upper Arm 07/12/2010 719.41 Pain In Joint Involving Shoulder Region 07/12/2010 840.9 Sprain Of Unspecified Site Of Shoulder And Upper Arm 07/12/2010 LEVIN DO, MESFIN K 719.41 Pain In Joint Involving Shoulder Region 07/12/2010 LEVIN DO, MESFIN K 840.9 Sprain Of Unspecified Site Of Shoulder And Upper Arm 07/12/2010 LEVIN DO, MESFIN K 719.41 Pain In Joint Involving Shoulder Region 07/12/2010 LEVIN DO, MESFIN K 840.9 Sprain Of Unspecified Site Of Shoulder And Upper Arm 07/12/2010 LEVIN DO, MESFIN K 719.41 Pain In Joint Involving Shoulder Region 07/12/2010 LEVIN DO, MESFIN K 840.9 Sprain Of Unspecified Site Of Shoulder And Upper Arm 07/12/2010 LEVIN DO, MESFIN K 719.41 Pain In Joint Involving Shoulder Region 07/12/2010 LEVIN DO, MESFIN K 840.9 Sprain Of Unspecified Site Of Shoulder And Upper Arm 07/12/2010 LEVIN DO, MESFIN K 719.41 Pain In Joint Involving Shoulder Region 07/12/2010 LEVIN DO, MESFIN K 840.9 Sprain Of Unspecified Site Of Shoulder And Upper Arm 07/12/2010 NAYA JACKSON APRN 719.41 Pain In Joint Involving Shoulder Region 07/12/2010 NAYA JACKSON APRN 840.9 Sprain Of Unspecified Site Of Shoulder And Upper Arm 07/12/2010 LEVIN DO, MESFIN K 719.41 Pain In Joint Involving Shoulder Region 07/12/2010 LEVIN DO, MESFIN K 840.9 Sprain Of Unspecified Site Of Shoulder And Upper Arm 07/12/2010 ANGELLA SOLAR PANEL INSTALLER, RASHAAD A 719.41 Pain In Joint Involving Shoulder Region 07/12/2010 ANGELLA SOLAR PANEL INSTALLER, RASHAAD A 840.9 Sprain Of Unspecified Site Of Shoulder And Upper Arm 07/12/2010 THOMAS SOLAR PANEL INSTALLER, RACHID R 719.41 Pain In Joint Involving Shoulder Region 07/12/2010 THOMAS SOLAR PANEL INSTALLER, RACHID R 840.9 Sprain Of Unspecified Site Of Shoulder And Upper Arm 07/12/2010 LEVIN DO, MESFIN K 719.41 Pain In Joint Involving Shoulder Region 07/12/2010 LEVIN DO, MESFIN K 840.9 Sprain Of Unspecified Site Of Shoulder And Upper Arm 07/12/2010 ANGELLA SOLAR PANEL INSTALLER, RASHAAD A 719.41 Pain In Joint Involving Shoulder Region 07/12/2010 ANGELLA SOLAR PANEL INSTALLER, RASHAAD A 840.9 Sprain Of Unspecified Site Of Shoulder And Upper Arm 07/12/2010 ANGELLA SOLAR PANEL INSTALLER, RASHAAD A 719.41 Pain In Joint Involving Shoulder Region 07/12/2010 ANGELLA SOLAR PANEL INSTALLER, RASHAAD A 840.9 Sprain Of Unspecified Site Of Shoulder And Upper Arm 07/12/2010 MADL SOLAR PANEL INSTALLER, STAR L 719.41 Pain In Joint Involving Shoulder Region 07/12/2010 MADL SOLAR PANEL INSTALLER, STAR L 840.9 Sprain Of Unspecified Site Of Shoulder And Upper Arm 07/12/2010 LEVIN DO, MESFIN K 719.41 Pain In Joint Involving Shoulder Region 07/12/2010 LEVIN DO, MESFIN K 840.9 Sprain Of Unspecified Site Of Shoulder And Upper Arm 07/12/2010 LEVIN DO, MESFIN K 719.41 Pain In Joint Involving Shoulder Region 07/12/2010 LEVIN DO, MESFIN K 840.9 Sprain Of Unspecified Site Of Shoulder And Upper Arm 07/12/2010 LEVIN DO, MESFIN K 719.41 Pain In Joint Involving Shoulder Region 07/12/2010 LEVIN DO, MESFIN K 840.9 Sprain Of Unspecified Site Of Shoulder And Upper Arm 11/25/2010 780.79 fatigue 11/25/2010 LEVIN DO, MESFIN K 780.79 Fatigue 11/25/2010 LEVIN DO, MESFIN K 780.79 Fatigue 11/25/2010 780.79 Fatigue 11/25/2010 780.79 Fatigue 11/25/2010 LEVIN DO, MESFIN K 780.79 Fatigue 11/25/2010 LEVIN DO, MESFIN K 780.79 Fatigue 11/25/2010 LEVIN DO, MESFIN K 780.79 Fatigue 11/25/2010 LEVIN DO, MESFIN K 780.79 Fatigue 11/25/2010 LEVIN DO, MESFIN K 780.79 Fatigue 11/25/2010 NAYA JACKSON APRN 780.79 Fatigue 11/25/2010 LEVIN DO, MESFIN K 780.79 Fatigue 11/25/2010 ANGELLA SOLAR PANEL INSTALLER, RASHAAD A 780.79 Fatigue 11/25/2010 THOMAS SOLAR PANEL INSTALLER, RACHID Farah 780.79 Fatigue 11/25/2010 LEVIN DO, MESFIN K 780.79 Fatigue 11/25/2010 ANGELLA SOLAR PANEL INSTALLER, RASHAAD A 780.79 Fatigue 11/25/2010 ANGELLA SOLAR PANEL INSTALLER, RASHAAD A 780.79 Fatigue 11/25/2010 DAWN SOLAR PANEL INSTALLER, STAR Slaughter 780.79 Fatigue 11/25/2010 LEVIN DO, MESFIN K 780.79 Fatigue 11/25/2010 LEVIN DO, MESFIN K 780.79 Fatigue 11/25/2010 LEVIN DO, MESFIN K 780.79 Fatigue 12/04/2010 780.50 SLEEP DISTURBANCE, UNSPECIFIED 12/04/2010 LEVIN DO, MESFIN K 780.50 SLEEP DISTURBANCE, UNSPECIFIED 12/04/2010 LEVIN DO, MESFIN K 780.50 SLEEP DISTURBANCE, UNSPECIFIED 12/04/2010 780.50 SLEEP DISTURBANCE, UNSPECIFIED 12/04/2010 780.50 SLEEP DISTURBANCE, UNSPECIFIED 12/04/2010 LEVIN DO, MESFIN K 780.50 SLEEP DISTURBANCE, UNSPECIFIED 12/04/2010 LEVIN DO, MESFIN K 780.50 SLEEP DISTURBANCE, UNSPECIFIED 12/04/2010 LEVIN DO, MESFIN K 780.50 SLEEP DISTURBANCE, UNSPECIFIED 12/04/2010 LEVIN DO, MESFIN K 780.50 SLEEP DISTURBANCE, UNSPECIFIED 12/04/2010 LEVIN DO, MESFIN K 780.50 SLEEP DISTURBANCE, UNSPECIFIED 12/04/2010 NAYA JACKSON APRN 780.50 SLEEP DISTURBANCE, UNSPECIFIED 12/04/2010 LEVIN DO, MESFIN K 780.50 SLEEP DISTURBANCE, UNSPECIFIED 12/04/2010 ANGELLA SOLAR PANEL INSTALLER, RASHAAD A 780.50 SLEEP DISTURBANCE, UNSPECIFIED 12/04/2010 THOMAS SOLAR PANEL INSTALLER, RACHID R 780.50 SLEEP DISTURBANCE, UNSPECIFIED 12/04/2010 LEVIN DO, MESFIN K 780.50 SLEEP DISTURBANCE, UNSPECIFIED 12/04/2010 ANGELLA SOLAR PANEL INSTALLER, RASHAAD A 780.50 SLEEP DISTURBANCE, UNSPECIFIED 12/04/2010 ANGELLA SOLAR PANEL INSTALLER, RASHAAD A 780.50 SLEEP DISTURBANCE, UNSPECIFIED 12/04/2010 DAWN SOLAR PANEL INSTALLER STAR L 780.50 SLEEP DISTURBANCE, UNSPECIFIED 12/04/2010 LEVIN DO, MESFIN K 780.50 SLEEP DISTURBANCE, UNSPECIFIED 12/04/2010 LEVIN DO, MESFIN K 780.50 SLEEP DISTURBANCE, UNSPECIFIED 12/04/2010 LEVIN DO, MESFIN K 780.50 SLEEP DISTURBANCE, UNSPECIFIED 05/19/2011 562.11 DIVERTICULITIS OF COLON (WITHOUT HEMORRHAGE) 05/19/2011 LEVIN DO, MESFIN K 562.11 Diverticulitis Of Colon (without Hemorrhage) 05/19/2011 LEVIN DO, MESFIN K 562.11 Diverticulitis Of Colon (without Hemorrhage) 05/19/2011 562.11 Diverticulitis Of Colon (without Hemorrhage) 05/19/2011 562.11 Diverticulitis Of Colon (without Hemorrhage) 05/19/2011 LEVIN DO, MESFIN K 562.11 Diverticulitis Of Colon (without Hemorrhage) 05/19/2011 LEVIN DO, MESFIN K 562.11 Diverticulitis Of Colon (without Hemorrhage) 05/19/2011 LEVIN DO, MESFIN K 562.11 Diverticulitis Of Colon (without Hemorrhage) 05/19/2011 LEVIN DO, MESFIN K 562.11 Diverticulitis Of Colon (without Hemorrhage) 05/19/2011 LEVIN DO, MESFIN K 562.11 Diverticulitis Of Colon (without Hemorrhage) 05/19/2011 NAYA JACKSON APRN 562.11 Diverticulitis Of Colon (without Hemorrhage) 05/19/2011 LEVIN DO, MESFIN K 562.11 Diverticulitis Of Colon (without Hemorrhage) 05/19/2011 ANGELLA SOLAR PANEL INSTALLER, RASHAAD A 562.11 Diverticulitis Of Colon (without Hemorrhage) 05/19/2011 THOMAS SOLAR PANEL INSTALLER, RACHID R 562.11 Diverticulitis Of Colon (without Hemorrhage) 05/19/2011 LEVIN DO, MESFIN K 562.11 Diverticulitis Of Colon (without Hemorrhage) 05/19/2011 ANGELLA SOLAR PANEL INSTALLER, RASHAAD A 562.11 Diverticulitis Of Colon (without Hemorrhage) 05/19/2011 ANGELLA SOLAR PANEL INSTALLER, RASHAAD A 562.11 Diverticulitis Of Colon (without Hemorrhage) 05/19/2011 STAR SEYMOUR APRN 562.11 Diverticulitis Of Colon (without Hemorrhage) 05/19/2011 LEVIN DO, MESFIN K 562.11 Diverticulitis Of Colon (without Hemorrhage) 05/19/2011 LEVIN DO, MESFIN K 562.11 Diverticulitis Of Colon (without Hemorrhage) 05/19/2011 LEVIN DO, MESFIN K 562.11 Diverticulitis Of Colon (without Hemorrhage) 05/23/2011 558.9 GASTROENTERITIS NONINFECTIOUS 05/23/2011 787.01 NAUSEA WITH VOMITING 05/23/2011 LEVIN DO, MESFIN K 558.9 Gastroenteritis Noninfectious 05/23/2011 LEVIN DO, MESFIN K 787.01 Nausea With Vomiting 05/23/2011 LEVIN DO, MESFIN K 558.9 Gastroenteritis Noninfectious 05/23/2011 LEVIN DO, MESFIN K 787.01 Nausea With Vomiting 05/23/2011 558.9 Gastroenteritis Noninfectious 05/23/2011 787.01 Nausea With Vomiting 05/23/2011 558.9 Gastroenteritis Noninfectious 05/23/2011 787.01 Nausea With Vomiting 05/23/2011 LEVIN DO, MESFIN K 558.9 Gastroenteritis Noninfectious 05/23/2011 LEVIN DO, MESFIN K 787.01 Nausea With Vomiting 05/23/2011 LEVIN DO, MESFIN K 558.9 Gastroenteritis Noninfectious 05/23/2011 LEVIN DO, MESFIN K 787.01 Nausea With Vomiting 05/23/2011 LEVIN DO, MESFIN K 558.9 Gastroenteritis Noninfectious 05/23/2011 LEVIN DO, MESFIN K 787.01 Nausea With Vomiting 05/23/2011 LEVIN DO, MESFIN K 558.9 Gastroenteritis Noninfectious 05/23/2011 LEVIN DO, MESFIN K 787.01 Nausea With Vomiting 05/23/2011 LEVIN DO, MESFIN K 558.9 Gastroenteritis Noninfectious 05/23/2011 LEVIN DO, MESFIN K 787.01 Nausea With Vomiting 05/23/2011 NAYA JACKSON APRN 558.9 Gastroenteritis Noninfectious 05/23/2011 NAYA JACKSON APRN 787.01 Nausea With Vomiting 05/23/2011 LEVIN DO, MESFIN K 558.9 Gastroenteritis Noninfectious 05/23/2011 LEVIN DO, MESFIN K 787.01 Nausea With Vomiting 05/23/2011 ANGELLARakan GALLO RASHAAD A 558.9 Gastroenteritis Noninfectious 05/23/2011 ANGELLA SOLAR PANEL INSTALLER RASHAAD A 787.01 Nausea With Vomiting 05/23/2011 THOMAS GALLO RACHID R 558.9 Gastroenteritis Noninfectious 05/23/2011 THOMAS GALLO RACHID R 787.01 Nausea With Vomiting 05/23/2011 LEVIN DO MESFIN K 558.9 Gastroenteritis Noninfectious 05/23/2011 LEVIN DO, MESFIN K 787.01 Nausea With Vomiting 05/23/2011 ANGELLA BAILEYN RASHAAD A 558.9 Gastroenteritis Noninfectious 05/23/2011 ANGELLARakan GALLO RASHAAD A 787.01 Nausea With Vomiting 05/23/2011 ANGELLA SOLAR PANEL INSTALLER RASHAAD A 558.9 Gastroenteritis Noninfectious 05/23/2011 ANGELLARakan GALLO RASHAAD A 787.01 Nausea With Vomiting 05/23/2011 FRANSICO SEYMOUR APRNA L 558.9 Gastroenteritis Noninfectious 05/23/2011 DAWN GALLO STAR L 787.01 Nausea With Vomiting 05/23/2011 LEVIN DO MESFIN K 558.9 Gastroenteritis Noninfectious 05/23/2011 LEVIN DO, MESFIN K 787.01 Nausea With Vomiting 05/23/2011 LEVIN DO, MESFIN K 558.9 Gastroenteritis Noninfectious 05/23/2011 LEVIN DO, MESFIN K 787.01 Nausea With Vomiting 05/23/2011 LEVIN DO, MESFIN K 558.9 Gastroenteritis Noninfectious 05/23/2011 LEVIN DO, MESFIN K 787.01 Nausea With Vomiting 11/04/2011 078.10 VIRAL WARTS UNSPECIFIED 11/04/2011 692.2 CONTACT DERMATITIS AND OTHER ECZEMA DUE TO SOLVENTS 11/04/2011 702.0 ACTINIC KERATOSIS 11/04/2011 POONAM DO MESFIN K 078.10 Viral Warts Unspecified 11/04/2011 LEVIN DO, MESFIN K 692.2 Contact Dermatitis And Other 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 11/04/2011 LEVIN DO, MESFIN K 702.0 Actinic Keratosis 11/04/2011 LEVIN DO, MESFIN K 078.10 Viral Warts Unspecified 11/04/2011 LEVIN DO, MESFIN K 692.2 Contact Dermatitis And Other 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 11/04/2011 LEIVN DO, MESFIN K 702.0 Actinic Keratosis 11/04/2011 078.10 Viral Warts Unspecified 11/04/2011 692.2 Contact Dermatitis And Other 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 11/04/2011 702.0 Actinic Keratosis 11/04/2011 078.10 Viral Warts Unspecified 11/04/2011 692.2 Contact Dermatitis And Other 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 11/04/2011 702.0 Actinic Keratosis 11/04/2011 LEVIN DO, MESFIN K 078.10 Viral Warts Unspecified 11/04/2011 LEVIN DO, MESFIN K 692.2 Contact Dermatitis And Other 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 11/04/2011 LEVIN DO, MESFIN K 702.0 Actinic Keratosis 11/04/2011 LEVIN DO, MESFIN K 078.10 Viral Warts Unspecified 11/04/2011 LEVIN DO, MESFIN K 692.2 Contact Dermatitis And Other 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 11/04/2011 LEVIN DO, MESFIN K 702.0 Actinic Keratosis 11/04/2011 LEVIN DO, MESFIN K 078.10 Viral Warts Unspecified 11/04/2011 LEVIN DO, MESFIN K 692.2 Contact Dermatitis And Other 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 11/04/2011 LEVIN DO, MESFIN K 702.0 Actinic Keratosis 11/04/2011 LEVIN DO, MESFIN K 078.10 Viral Warts Unspecified 11/04/2011 LEVIN DO, MESFIN K 692.2 Contact Dermatitis And Other 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 11/04/2011 LEVIN DO, MESFIN K 702.0 Actinic Keratosis 11/04/2011 LEVIN DO, MESFIN K 078.10 Viral Warts Unspecified 11/04/2011 LEVIN DO, MESFIN K 692.2 Contact Dermatitis And Other 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 11/04/2011 LEVIN DO, MESFIN K 702.0 Actinic Keratosis 11/04/2011 NAYA JACKSON APRN 078.10 Viral Warts Unspecified 11/04/2011 NAYA JACKSON APRN 692.2 Contact Dermatitis And Other 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 11/04/2011 NAYA JACKSON APRN 702.0 Actinic Keratosis 11/04/2011 POONAM WONG MESFIN K 078.10 Viral Warts Unspecified 11/04/2011 POONAM WONG MESFIN K 692.2 Contact Dermatitis And Other 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 11/04/2011 POONAM WONG MESFIN K 702.0 Actinic Keratosis 11/04/2011 ANGELLA SOLAR PANEL INSTALLER RASHAAD A 078.10 Viral Warts Unspecified 11/04/2011 ANGELLA BAILEYNTIFFANIRASHAAD A 692.2 Contact Dermatitis And Other 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 11/04/2011 ANGELLA BAILEYN, RASHAAD A 702.0 Actinic Keratosis 11/04/2011 THOMAS GALLO RACHID R 078.10 Viral Warts Unspecified 11/04/2011 THOMAS GALLO RACHID R 692.2 Contact Dermatitis And Other 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 11/04/2011 THOMAS GALLO RACHID R 702.0 Actinic Keratosis 11/04/2011 POONAM WONG MESFIN K 078.10 Viral Warts Unspecified 11/04/2011 TRELL LEVIN DOA K 692.2 Contact Dermatitis And Other 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 11/04/2011 POONAM WONG MESFIN K 702.0 Actinic Keratosis 11/04/2011 ANGELLA BAILEYN, RASHAAD A 078.10 Viral Warts Unspecified 11/04/2011 ANGELLA BAILEYNTIFFANIRASHAAD A 692.2 Contact Dermatitis And Other 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 11/04/2011 ANGELLA SOLAR PANEL INSTALLER, RASHAAD A 702.0 Actinic Keratosis 11/04/2011 ANGELLA SOLAR PANEL INSTALLER, RASHAAD A 078.10 Viral Warts Unspecified 11/04/2011 ANGELLA SOLAR PANEL INSTALLER, RASHAAD A 692.2 Contact Dermatitis And Other 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 11/04/2011 ANGELLA SOLAR PANEL INSTALLER, RASHAAD A 702.0 Actinic Keratosis 11/04/2011 STAR SEYMOUR APRN 078.10 Viral Warts Unspecified 11/04/2011 MADL SOLAR PANEL INSTALLER, STAR L 692.2 Contact Dermatitis And Other 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 11/04/2011 MADL SOLAR PANEL INSTALLER, STAR L 702.0 Actinic Keratosis 11/04/2011 LEVIN DO, MESFIN K 078.10 Viral Warts Unspecified 11/04/2011 LEVIN DO, MESFIN K 692.2 Contact Dermatitis And Other 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 11/04/2011 LEVIN DO, MESFIN K 702.0 Actinic Keratosis 11/04/2011 LEVIN DO, MESFIN K 078.10 Viral Warts Unspecified 11/04/2011 LEVIN DO, MSEFIN K 692.2 Contact Dermatitis And Other 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 11/04/2011 LEVIN DO, MESFIN K 702.0 Actinic Keratosis 11/04/2011 LEVIN DO, MESFIN K 078.10 Viral Warts Unspecified 11/04/2011 LEVIN DO, MESFIN K 692.2 Contact Dermatitis And Other 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 11/04/2011 LEVIN DO, MESFIN K 702.0 Actinic Keratosis 11/27/2011 785.1 PALPITATIONS 11/27/2011 LEVIN DO, MESFIN K 785.1 Palpitations 11/27/2011 LEVIN DO, MESFIN K 785.1 Palpitations 11/27/2011 785.1 Palpitations 11/27/2011 785.1 Palpitations 11/27/2011 LEVIN DO, MESFIN K 785.1 Palpitations 11/27/2011 LEVIN DO, MESFIN K 785.1 Palpitations 11/27/2011 LEVIN DO, MESFIN K 785.1 Palpitations 11/27/2011 LEVIN DO, MESFIN K 785.1 Palpitations 11/27/2011 LEVIN DO, MESFIN K 785.1 Palpitations 11/27/2011 NAYA JACKSON APRN 785.1 Palpitations 11/27/2011 LEVIN DO, MESFIN K 785.1 Palpitations 11/27/2011 RASHAAD PERALES APRN A 785.1 Palpitations 11/27/2011 RACHID GUZMAN APRN 785.1 Palpitations 11/27/2011 LEVIN DO, MESFIN K 785.1 Palpitations 11/27/2011 ANGELLA BAILEYNRASHAAD A 785.1 Palpitations 11/27/2011 RASHAAD PERALES APRN A 785.1 Palpitations 11/27/2011 STAR SEYMOUR APRN 785.1 Palpitations 11/27/2011 LEVIN DO, MESFIN K 785.1 Palpitations 11/27/2011 LEVIN DO, MESFIN K 785.1 Palpitations 11/27/2011 LEVNI DO, MESFIN K 785.1 Palpitations 12/08/2011 Ot 401.9 12/08/2011 Ot 785.1 12/08/2011 Ot 794.39 12/22/2011 611.71 MASTODYNIA 12/22/2011 785.6 ENLARGEMENT OF LYMPH NODES 12/22/2011 LEVIN DO, MESIFN K 611.71 Mastodynia 12/22/2011 LEVIN DO, MESFIN K 785.6 Enlargement Of Lymph Nodes 12/22/2011 LEVIN DO, MESFIN K 611.71 Mastodynia 12/22/2011 LEVIN DO, MESFIN K 785.6 Enlargement Of Lymph Nodes 12/22/2011 611.71 Mastodynia 12/22/2011 785.6 Enlargement Of Lymph Nodes 12/22/2011 611.71 Mastodynia 12/22/2011 785.6 Enlargement Of Lymph Nodes 12/22/2011 LEVIN DO, MESFIN K 611.71 Mastodynia 12/22/2011 LEVIN DO, MESFIN K 785.6 Enlargement Of Lymph Nodes 12/22/2011 LEVIN DO, MESFIN K 611.71 Mastodynia 12/22/2011 LEVIN DO, MESFIN K 785.6 Enlargement Of Lymph Nodes 12/22/2011 LEVIN DO, MESFIN K 611.71 Mastodynia 12/22/2011 LEVIN DO, MESFIN K 785.6 Enlargement Of Lymph Nodes 12/22/2011 LEVIN DO, MESFIN K 611.71 Mastodynia 12/22/2011 LEVIN DO, MESFIN K 785.6 Enlargement Of Lymph Nodes 12/22/2011 LEVIN DO, MESFIN K 611.71 Mastodynia 12/22/2011 LEVIN DO, MESFIN K 785.6 Enlargement Of Lymph Nodes 12/22/2011 NAYA JACKSON APRN 611.71 Mastodynia 12/22/2011 NAYA JACKSON APRN 785.6 Enlargement Of Lymph Nodes 12/22/2011 LEVIN DO, MESFIN K 611.71 Mastodynia 12/22/2011 LEVIN DO, MESFIN K 785.6 Enlargement Of Lymph Nodes 12/22/2011 ANGELLA SOLAR PANEL INSTALLER, RASHAAD A 611.71 Mastodynia 12/22/2011 ANGELLA SOLAR PANEL INSTALLER, RASHAAD A 785.6 Enlargement Of Lymph Nodes 12/22/2011 THOMAS SOLAR PANEL INSTALLER, RACHID R 611.71 Mastodynia 12/22/2011 THOMAS SOLAR PANEL INSTALLER, RACHID R 785.6 Enlargement Of Lymph Nodes 12/22/2011 LEVIN DO, MESFIN K 611.71 Mastodynia 12/22/2011 LEVIN DO, MESFIN K 785.6 Enlargement Of Lymph Nodes 12/22/2011 ANGELLA SOLAR PANEL INSTALLER, RASHAAD A 611.71 Mastodynia 12/22/2011 ANGELLA SOLAR PANEL INSTALLER, RASHAAD A 785.6 Enlargement Of Lymph Nodes 12/22/2011 ANGELLA SOLAR PANEL INSTALLER, RASHAAD A 611.71 Mastodynia 12/22/2011 ANGELLA SOLAR PANEL INSTALLER, RASHAAD A 785.6 Enlargement Of Lymph Nodes 12/22/2011 MADL SOLAR PANEL INSTALLER, STAR L 611.71 Mastodynia 12/22/2011 MADL SOLAR PANEL INSTALLER, STAR L 785.6 Enlargement Of Lymph Nodes 12/22/2011 LEVIN DO, MESFIN K 611.71 Mastodynia 12/22/2011 LEVIN DO, MESFIN K 785.6 Enlargement Of Lymph Nodes 12/22/2011 LEVIN DO, MESFIN K 611.71 Mastodynia 12/22/2011 LEVIN DO, MESFIN K 785.6 Enlargement Of Lymph Nodes 12/22/2011 LEVIN DO, MESFIN K 611.71 Mastodynia 12/22/2011 LEVIN DO, MESFIN K 785.6 Enlargement Of Lymph Nodes 12/24/2011 401.9 HYPERTENSION, UNSPECIFIED ESSENTIAL 12/24/2011 496 COPD 12/24/2011 LEVIN DO, MESFIN K 401.9 HYPERTENSION, UNSPECIFIED ESSENTIAL 12/24/2011 LEVIN DO, MESFIN K 496 COPD 12/24/2011 LEVIN DO, MESFIN K 401.9 HYPERTENSION, UNSPECIFIED ESSENTIAL 12/24/2011 LEVIN DO, MESFIN K 496 COPD 12/24/2011 401.9 HYPERTENSION, UNSPECIFIED ESSENTIAL 12/24/2011 496 COPD 12/24/2011 401.9 HYPERTENSION, UNSPECIFIED ESSENTIAL 12/24/2011 496 COPD 12/24/2011 LEVIN DO, MESFIN K 401.9 HYPERTENSION, UNSPECIFIED ESSENTIAL 12/24/2011 LEVIN DO, MESFIN K 496 COPD 12/24/2011 LEVIN DO, MESFIN K 401.9 HYPERTENSION, UNSPECIFIED ESSENTIAL 12/24/2011 LEVIN DO, MESFIN K 496 COPD 12/24/2011 LEVIN DO, MESFIN K 401.9 HYPERTENSION, UNSPECIFIED ESSENTIAL 12/24/2011 LEVIN DO, MESFIN K 496 COPD 12/24/2011 LEVIN DO, MESFIN K 401.9 HYPERTENSION, UNSPECIFIED ESSENTIAL 12/24/2011 LEVIN DO, MESFIN K 496 COPD 12/24/2011 LEVIN DO, MESFIN K 401.9 HYPERTENSION, UNSPECIFIED ESSENTIAL 12/24/2011 LEVIN DO, MESFIN K 496 COPD 12/24/2011 RENETTA SOLAR PANEL INSTALLERNAYA 401.9 HYPERTENSION, UNSPECIFIED ESSENTIAL 12/24/2011 RENETTA SOLAR PANEL INSTALLER, NAYA T 496 COPD 12/24/2011 LEVIN DO, MESFIN K 401.9 HYPERTENSION, UNSPECIFIED ESSENTIAL 12/24/2011 LEVIN DO, MESFIN K 496 COPD 12/24/2011 ANGELLA SOLAR PANEL INSTALLER, RASHAAD A 401.9 HYPERTENSION, UNSPECIFIED ESSENTIAL 12/24/2011 ANGELLA SOLAR PANEL INSTALLER, RASHAAD A 496 COPD 12/24/2011 THOMAS SOLAR PANEL INSTALLER, RACHID R 401.9 HYPERTENSION, UNSPECIFIED ESSENTIAL 12/24/2011 THOMAS SOLAR PANEL INSTALLER, RACHID R 496 COPD 12/24/2011 LEVIN DO, MESFIN K 401.9 HYPERTENSION, UNSPECIFIED ESSENTIAL 12/24/2011 LEVIN DO, MESFIN K 496 COPD 12/24/2011 ANGELLA SOLAR PANEL INSTALLER, RASHAAD A 401.9 HYPERTENSION, UNSPECIFIED ESSENTIAL 12/24/2011 ANGELLA SOLAR PANEL INSTALLER, RASHAAD A 496 COPD 12/24/2011 ANGELLA SOLAR PANEL INSTALLER, RASHAAD A 401.9 HYPERTENSION, UNSPECIFIED ESSENTIAL 12/24/2011 ANGELLA SOLAR PANEL INSTALLER, RASHAAD A 496 COPD 12/24/2011 MADL SOLAR PANEL INSTALLER, STAR L 401.9 HYPERTENSION, UNSPECIFIED ESSENTIAL 12/24/2011 MADL SOLAR PANEL INSTALLER, STAR L 496 COPD 12/24/2011 LEVIN DO, MESFIN K 401.9 HYPERTENSION, UNSPECIFIED ESSENTIAL 12/24/2011 LEVIN DO, MESFIN K 496 COPD 12/24/2011 LEVIN DO, MESFIN K 401.9 HYPERTENSION, UNSPECIFIED ESSENTIAL 12/24/2011 LEVIN MESFIN WONG 496 COPD 12/24/2011 POONAM WONGMESFIN K 401.9 HYPERTENSION, UNSPECIFIED ESSENTIAL 12/24/2011 MESFIN LEVIN DO Lucas 496 COPD 12/27/2011 Ot 922.32 12/27/2011 Ot 959.19 12/27/2011 Ot E000.8 12/27/2011 Ot E001.0 12/27/2011 Ot E849.0 12/27/2011 Ot E880.9 03/23/2012 Ot 785.1 05/13/2012 MESFIN LEVIN DO K 338.29 OTHER CHRONIC PAIN 05/13/2012 TRELL LEVIN DOA K V58.69 LONG-TERM (CURRENT) USE OF OTHER MEDICATIONS 05/13/2012 TRELL LEVIN DOA K 338.29 OTHER CHRONIC PAIN 05/13/2012 TRELL LEVIN DOA K V58.69 LONG-TERM (CURRENT) USE OF OTHER MEDICATIONS 05/13/2012 338.29 OTHER CHRONIC PAIN 05/13/2012 V58.69 LONG-TERM ( CURRENT) USE OF OTHER MEDICATIONS 05/13/2012 338.29 OTHER CHRONIC PAIN 05/13/2012 V58.69 LONG-TERM ( CURRENT) USE OF OTHER MEDICATIONS 05/13/2012 TRELL LEVIN DOA K 338.29 OTHER CHRONIC PAIN 05/13/2012 TRELL LEVIN DOA K V58.69 LONG-TERM (CURRENT) USE OF OTHER MEDICATIONS 05/13/2012 TRELL LEVIN DOA K 338.29 OTHER CHRONIC PAIN 05/13/2012 TRELL LEVIN DOA K V58.69 LONG-TERM (CURRENT) USE OF OTHER MEDICATIONS 05/13/2012 TRELL LEVIN DOA K 338.29 OTHER CHRONIC PAIN 05/13/2012 TRELL LEVIN DOA K V58.69 LONG-TERM (CURRENT) USE OF OTHER MEDICATIONS 05/13/2012 LEVIN DO MESFIN K 338.29 OTHER CHRONIC PAIN 05/13/2012 TRELL LEVIN DOA K V58.69 LONG-TERM (CURRENT) USE OF OTHER MEDICATIONS 05/13/2012 TRELL LEVIN DOA K 338.29 OTHER CHRONIC PAIN 05/13/2012 POONAM WONG MESFIN K V58.69 LONG-TERM (CURRENT) USE OF OTHER MEDICATIONS 05/13/2012 NAYA JACKSON APRN 338.29 OTHER CHRONIC PAIN 05/13/2012 RENETTA SOLAR PANEL INSTALLER, NAYA T V58.69 LONG-TERM (CURRENT) USE OF OTHER MEDICATIONS 05/13/2012 LEVIN DO MESFIN K 338.29 OTHER CHRONIC PAIN 05/13/2012 LEVIN DO, MESFIN K V58.69 LONG-TERM (CURRENT) USE OF OTHER MEDICATIONS 05/13/2012 ANGELLA SOLAR PANEL INSTALLER, RASHAAD A 338.29 OTHER CHRONIC PAIN 05/13/2012 ANGELLA SOLAR PANEL INSTALLER, RASHAAD A V58.69 LONG-TERM (CURRENT) USE OF OTHER MEDICATIONS 05/13/2012 THOMAS SOLAR PANEL INSTALLER, RACHID R 338.29 OTHER CHRONIC PAIN 05/13/2012 THOMAS SOLAR PANEL INSTALLER, RACHID R V58.69 LONG-TERM (CURRENT) USE OF OTHER MEDICATIONS 05/13/2012 LEVIN DO MESFIN K 338.29 OTHER CHRONIC PAIN 05/13/2012 LEVIN DO MESFIN K V58.69 LONG-TERM (CURRENT) USE OF OTHER MEDICATIONS 05/13/2012 ANGELLA SOLAR PANEL INSTALLER, RASHAAD A 338.29 OTHER CHRONIC PAIN 05/13/2012 ANGELLA SOLAR PANEL INSTALLER, RASHAAD A V58.69 LONG-TERM (CURRENT) USE OF OTHER MEDICATIONS 05/13/2012 ANGELLA SOLAR PANEL INSTALLER, RASHAAD A 338.29 OTHER CHRONIC PAIN 05/13/2012 ANGELLA SOLAR PANEL INSTALLER, RASHAAD A V58.69 LONG-TERM (CURRENT) USE OF OTHER MEDICATIONS 05/13/2012 MADL SOLAR PANEL INSTALLER, STAR L 338.29 OTHER CHRONIC PAIN 05/13/2012 MADL SOLAR PANEL INSTALLER, STAR L V58.69 LONG-TERM (CURRENT) USE OF OTHER MEDICATIONS 05/13/2012 LEVIN DO MESFIN K 338.29 OTHER CHRONIC PAIN 05/13/2012 POONAM WONG MESFIN K V58.69 LONG-TERM (CURRENT) USE OF OTHER MEDICATIONS 05/13/2012 LEVIN DO MESFIN K 338.29 OTHER CHRONIC PAIN 05/13/2012 LEVIN DO MESFIN K V58.69 LONG-TERM (CURRENT) USE OF OTHER MEDICATIONS 05/13/2012 LEVIN DO MESFIN K 338.29 OTHER CHRONIC PAIN 05/13/2012 LEVIN DO, MESFIN K V58.69 LONG-TERM (CURRENT) USE OF OTHER MEDICATIONS 06/04/2012 TRELL LEVIN DOA K 724.2 LUMBAGO 06/04/2012 724.2 LUMBAGO 06/04/2012 724.2 LUMBAGO 06/04/2012 LEVIN DO, MESFIN K 724.2 LUMBAGO 06/04/2012 LEVIN DO, MESFIN K 724.2 LUMBAGO 06/04/2012 LEVIN DO, MESFIN K 724.2 LUMBAGO 06/04/2012 LEVIN DO, MESFIN K 724.2 LUMBAGO 06/04/2012 LEVIN DO, MESFIN K 724.2 LUMBAGO 06/04/2012 RENETTA SOLAR PANEL INSTALLER, NAYA Colón 724.2 LUMBAGO 06/04/2012 LEVIN DO, MESFIN K 724.2 LUMBAGO 06/04/2012 ANGELLA SOLAR PANEL INSTALLER, RASHAAD A 724.2 LUMBAGO 06/04/2012 THOMAS SOLAR PANEL INSTALLER, RACHID R 724.2 LUMBAGO 06/04/2012 LEVIN DO, MESFIN K 724.2 LUMBAGO 06/04/2012 ANGELLA SOLAR PANEL INSTALLER, RASHAAD A 724.2 LUMBAGO 06/04/2012 ANGELLA SOLAR PANEL INSTALLER, RASHAAD A 724.2 LUMBAGO 06/04/2012 DAWN SOLAR PANEL INSTALLER, STAR Slaughter 724.2 LUMBAGO 06/04/2012 LEVIN DO, MESFIN K 724.2 LUMBAGO 06/04/2012 LEVIN DO, MESFIN K 724.2 LUMBAGO 06/04/2012 LEVIN DO, MESFIN K 724.2 LUMBAGO 08/30/2012 723.1 CERVICALGIA 08/30/2012 723.4 BRACHIAL NEURITIS OR RADICULITIS NOT OTHERWISE SPECIFIED 08/30/2012 723.1 CERVICALGIA 08/30/2012 723.4 BRACHIAL NEURITIS OR RADICULITIS NOT OTHERWISE SPECIFIED 08/30/2012 LEVIN DO, MESFIN K 723.1 CERVICALGIA 08/30/2012 LEVIN DO, MESFIN K 723.4 BRACHIAL NEURITIS OR RADICULITIS NOT OTHERWISE SPECIFIED 08/30/2012 LEVIN DO, MESFIN K 723.1 CERVICALGIA 08/30/2012 LEVIN DO, MESFIN K 723.4 BRACHIAL NEURITIS OR RADICULITIS NOT OTHERWISE SPECIFIED 08/30/2012 LEVIN DO, MESFIN K 723.1 CERVICALGIA 08/30/2012 LEVIN DO, MESFIN K 723.4 BRACHIAL NEURITIS OR RADICULITIS NOT OTHERWISE SPECIFIED 08/30/2012 LEVIN DO, MESFIN K 723.1 CERVICALGIA 08/30/2012 LEVIN DO, MESFIN K 723.4 BRACHIAL NEURITIS OR RADICULITIS NOT OTHERWISE SPECIFIED 08/30/2012 LEVIN DO, MESFIN K 723.1 CERVICALGIA 08/30/2012 LEVIN DO, MESFIN K 723.4 BRACHIAL NEURITIS OR RADICULITIS NOT OTHERWISE SPECIFIED 08/30/2012 RENETTA SOLAR PANEL INSTALLERNAYA 723.1 CERVICALGIA 08/30/2012 RENETTA SOLAR PANEL INSTALLERNAYA 723.4 BRACHIAL NEURITIS OR RADICULITIS NOT OTHERWISE SPECIFIED 08/30/2012 LEVIN DO, MESFIN K 723.1 CERVICALGIA 08/30/2012 LEVIN DO, MESFIN K 723.4 BRACHIAL NEURITIS OR RADICULITIS NOT OTHERWISE SPECIFIED 08/30/2012 ANGELLA SOLAR PANEL INSTALLER, RASHAAD A 723.1 CERVICALGIA 08/30/2012 ANGELLA SOLAR PANEL INSTALLER, RASHAAD A 723.4 BRACHIAL NEURITIS OR RADICULITIS NOT OTHERWISE SPECIFIED 08/30/2012 THOMAS SOLAR PANEL INSTALLER, RACHID R 723.1 CERVICALGIA 08/30/2012 THOMAS SOLAR PANEL INSTALLER, RACHID R 723.4 BRACHIAL NEURITIS OR RADICULITIS NOT OTHERWISE SPECIFIED 08/30/2012 LEVIN DO, MESFIN K 723.1 CERVICALGIA 08/30/2012 LEVIN DO, MESFIN K 723.4 BRACHIAL NEURITIS OR RADICULITIS NOT OTHERWISE SPECIFIED 08/30/2012 ANGELLA SOLAR PANEL INSTALLER, RASHAAD A 723.1 CERVICALGIA 08/30/2012 ANGELLA SOLAR PANEL INSTALLER, RASHAAD A 723.4 BRACHIAL NEURITIS OR RADICULITIS NOT OTHERWISE SPECIFIED 08/30/2012 ANGELLA SOLAR PANEL INSTALLER, RASHAAD A 723.1 CERVICALGIA 08/30/2012 ANGELLA SOLAR PANEL INSTALLER, RASAHAD A 723.4 BRACHIAL NEURITIS OR RADICULITIS NOT OTHERWISE SPECIFIED 08/30/2012 MADL SOLAR PANEL INSTALLER, STAR L 723.1 CERVICALGIA 08/30/2012 MADL SOLAR PANEL INSTALLER, STAR L 723.4 BRACHIAL NEURITIS OR RADICULITIS NOT OTHERWISE SPECIFIED 08/30/2012 LEVIN DO, MESFIN K 723.1 CERVICALGIA 08/30/2012 LEVIN DO, MESFIN K 723.4 BRACHIAL NEURITIS OR RADICULITIS NOT OTHERWISE SPECIFIED 08/30/2012 LEVIN DO, MESFIN K 723.1 CERVICALGIA 08/30/2012 LEVIN DO, MESFIN K 723.4 BRACHIAL NEURITIS OR RADICULITIS NOT OTHERWISE SPECIFIED 08/30/2012 LEVIN DO, MESFIN K 723.1 CERVICALGIA 08/30/2012 LEVIN DO, MESFIN K 723.4 BRACHIAL NEURITIS OR RADICULITIS NOT OTHERWISE SPECIFIED 01/05/2013 LEVIN DO, MESFIN K V76.10 BREAST CANCER SCREENING 01/05/2013 LEVIN DO, MESFIN K V76.10 BREAST CANCER SCREENING 01/05/2013 LEVIN DO, MESFIN K V76.10 BREAST CANCER SCREENING 01/05/2013 LEVIN DO, MESFIN K V76.10 BREAST CANCER SCREENING 01/05/2013 LEVIN DO, MESFIN K V76.10 BREAST CANCER SCREENING 01/05/2013 NAYA JACKSON APRN V76.10 BREAST CANCER SCREENING 01/05/2013 LEVIN DO, MESFIN K V76.10 BREAST CANCER SCREENING 01/05/2013 ANGELLA GALLO, RASHAAD A V76.10 BREAST CANCER SCREENING 01/05/2013 THOMAS GALLO RACHID R V76.10 BREAST CANCER SCREENING 01/05/2013 LEVIN DO, MESFIN K V76.10 BREAST CANCER SCREENING 01/05/2013 ANGELLA GALLO, RASHAAD A V76.10 BREAST CANCER SCREENING 01/05/2013 ANGELLA GALLO, RASHAAD A V76.10 BREAST CANCER SCREENING 01/05/2013 STAR SEYMOUR APRN L V76.10 BREAST CANCER SCREENING 01/05/2013 LEVIN DO, MESFIN K V76.10 BREAST CANCER SCREENING 01/05/2013 LEVIN DO, MESFIN K V76.10 BREAST CANCER SCREENING 01/05/2013 LEVIN DO, MESFIN K V76.10 BREAST CANCER SCREENING 02/28/2013 LEVIN DO, MESFIN K V05.8 ZOSTAVAX DX 02/28/2013 LEVIN DO, MESFIN K V05.8 ZOSTAVAX DX 02/28/2013 LEVIN DO, MESFIN K V05.8 ZOSTAVAX DX 02/28/2013 LEVIN DO, MESFIN K V05.8 ZOSTAVAX DX 02/28/2013 NAYA JACKSON APRN V05.8 ZOSTAVAX DX 02/28/2013 LEVIN DO, MESFIN K V05.8 ZOSTAVAX DX 02/28/2013 ANGELLA SOLAR PANEL INSTALLER, RASHAAD A V05.8 ZOSTAVAX DX 02/28/2013 THOMAS SOLAR PANEL INSTALLER, RACHID R V05.8 ZOSTAVAX DX 02/28/2013 LEVIN DO, MESFIN K V05.8 ZOSTAVAX DX 02/28/2013 ANGELLA SOLAR PANEL INSTALLER, RASHAAD A V05.8 ZOSTAVAX DX 02/28/2013 ANGELLA SOLAR PANEL INSTALLER, RASHAAD A V05.8 ZOSTAVAX DX 02/28/2013 MADL SOLAR PANEL INSTALLER, STAR L V05.8 ZOSTAVAX DX 02/28/2013 LEVIN DO, MESFIN K V05.8 ZOSTAVAX DX 02/28/2013 LEVIN DO, MESFIN K V05.8 ZOSTAVAX DX 02/28/2013 LEVIN DO, MESFIN K V05.8 ZOSTAVAX DX 06/27/2013 LEVIN DO, MESFIN 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 06/27/2013 POONAM WONG MESFIN K 564.1 IRRITABLE BOWEL SYNDROME 06/27/2013 POONAM DO MESFIN K 701.9 UNSPECIFIED HYPERTROPHIC AND ATROPHIC CONDITIONS OF SKIN 06/27/2013 LEVIN DO MESFIN 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 06/27/2013 POONAM DO MESFIN K 564.1 IRRITABLE BOWEL SYNDROME 06/27/2013 LEVIN DO MESFIN K 701.9 UNSPECIFIED HYPERTROPHIC AND ATROPHIC CONDITIONS OF SKIN 06/27/2013 LEVIN DO MESFIN 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 06/27/2013 POONAM WONG MESFIN K 564.1 IRRITABLE BOWEL SYNDROME 06/27/2013 LEVIN DO MESFIN K 701.9 UNSPECIFIED HYPERTROPHIC AND ATROPHIC CONDITIONS OF SKIN 06/27/2013 NAYA JACKSON APRN 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 06/27/2013 NAYA JACKSON APRN 564.1 IRRITABLE BOWEL SYNDROME 06/27/2013 NAYA JACKSON APRN 701.9 UNSPECIFIED HYPERTROPHIC AND ATROPHIC CONDITIONS OF SKIN 06/27/2013 LEVIN DO MESFIN 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 06/27/2013 TRELL LEVIN DOA K 564.1 IRRITABLE BOWEL SYNDROME 06/27/2013 POONAM WONG MESFIN K 701.9 UNSPECIFIED HYPERTROPHIC AND ATROPHIC CONDITIONS OF SKIN 06/27/2013 ANGELLA SOLAR PANEL INSTALLER RASHAAD A 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 06/27/2013 ANGELLA SOLAR PANEL INSTALLER RASHAAD A 564.1 IRRITABLE BOWEL SYNDROME 06/27/2013 ANGELLA SOLAR PANEL INSTALLER, RASHAAD A 701.9 UNSPECIFIED HYPERTROPHIC AND ATROPHIC CONDITIONS OF SKIN 06/27/2013 THOMAS SOLAR PANEL INSTALLER, RACHID R 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 06/27/2013 THOMAS SOLAR PANEL INSTALLER, RACHID R 564.1 IRRITABLE BOWEL SYNDROME 06/27/2013 THOMAS SOLAR PANEL INSTALLER, RACHID R 701.9 UNSPECIFIED HYPERTROPHIC AND ATROPHIC CONDITIONS OF SKIN 06/27/2013 LEVIN DO MESFIN 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 06/27/2013 LEVIN DO MESFIN K 564.1 IRRITABLE BOWEL SYNDROME 06/27/2013 POONAM WONG MESFIN K 701.9 UNSPECIFIED HYPERTROPHIC AND ATROPHIC CONDITIONS OF SKIN 06/27/2013 TIFFANI PERALES APRNIDI A 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 06/27/2013 ANGELLA BAILEYN, RASHAAD A 564.1 IRRITABLE BOWEL SYNDROME 06/27/2013 ANGELLA SOLAR PANEL INSTALLER, RASHAAD A 701.9 UNSPECIFIED HYPERTROPHIC AND ATROPHIC CONDITIONS OF SKIN 06/27/2013 ANGELLA GALLO RASHAAD A 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 06/27/2013 ANGELLA BAILEYN, RASHAAD A 564.1 IRRITABLE BOWEL SYNDROME 06/27/2013 ANGELLA GALLO RASHAAD A 701.9 UNSPECIFIED HYPERTROPHIC AND ATROPHIC CONDITIONS OF SKIN 06/27/2013 MADL SOLAR PANEL INSTALLER, STAR L 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 06/27/2013 MADL SOLAR PANEL INSTALLER, STAR L 564.1 IRRITABLE BOWEL SYNDROME 06/27/2013 MADL SOLAR PANEL INSTALLER, STAR L 701.9 UNSPECIFIED HYPERTROPHIC AND ATROPHIC CONDITIONS OF SKIN 06/27/2013 LEVIN DO MESFIN 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 06/27/2013 LEVIN DO MESFIN K 564.1 IRRITABLE BOWEL SYNDROME 06/27/2013 LEVIN DO MESFIN K 701.9 UNSPECIFIED HYPERTROPHIC AND ATROPHIC CONDITIONS OF SKIN 06/27/2013 LEVIN DO, MESFIN 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 06/27/2013 LEVIN DO, MESFIN K 564.1 IRRITABLE BOWEL SYNDROME 06/27/2013 LEVIN DO, MESFIN K 701.9 UNSPECIFIED HYPERTROPHIC AND ATROPHIC CONDITIONS OF SKIN 06/27/2013 LEVIN DO, MESFIN 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 06/27/2013 LEVIN DO, MESFIN K 564.1 IRRITABLE BOWEL SYNDROME 06/27/2013 LEVIN DO, MESFIN K 701.9 UNSPECIFIED HYPERTROPHIC AND ATROPHIC CONDITIONS OF SKIN 07/01/2013 LEVIN DO, MESFIN K 790.29 ABNORMAL GLUCOSE 07/01/2013 LEVIN DO, MESFIN K 790.29 ABNORMAL GLUCOSE 07/01/2013 NAYA JACKSON APRN 790.29 ABNORMAL GLUCOSE 07/01/2013 LEVIN DO, MESFIN K 790.29 ABNORMAL GLUCOSE 07/01/2013 ANGELLA GALLO RASHAAD A 790.29 ABNORMAL GLUCOSE 07/01/2013 RACHID GUZMAN APRN 790.29 ABNORMAL GLUCOSE 07/01/2013 LEVIN DO, MESFIN K 790.29 ABNORMAL GLUCOSE 07/01/2013 ANGELLA SOLAR PANEL INSTALLER, RASHAAD A 790.29 ABNORMAL GLUCOSE 07/01/2013 ANGELLA SOLAR PANEL INSTALLER, RASHAAD A 790.29 ABNORMAL GLUCOSE 07/01/2013 STAR SEYMOUR APRN 790.29 ABNORMAL GLUCOSE 07/01/2013 LEVIN DO, MESFIN K 790.29 ABNORMAL GLUCOSE 07/01/2013 LEVIN DO, MESFIN K 790.29 ABNORMAL GLUCOSE 07/01/2013 LEVIN DO, MESFIN K 790.29 ABNORMAL GLUCOSE 09/12/2013 LEVIN DO, MESFIN K 386.11 BENIGN PAROXYSMAL POSITIONAL VERTIGO 09/12/2013 LEVIN DO, MESFIN K 461.9 SINUSITIS ACUTE 09/12/2013 LEVIN DO, MESFIN K 785.6 ENLARGEMENT OF LYMPH NODES 09/12/2013 ANGELLA SOLAR PANEL INSTALLER, RASHAAD A 386.11 BENIGN PAROXYSMAL POSITIONAL VERTIGO 09/12/2013 ANGELLA SOLAR PANEL INSTALLER, RASHAAD A 461.9 SINUSITIS ACUTE 09/12/2013 ANGELLADELLA BAILEYN, RASHAAD A 785.6 ENLARGEMENT OF LYMPH NODES 09/12/2013 RACHID GUZMAN APRN R 386.11 BENIGN PAROXYSMAL POSITIONAL VERTIGO 09/12/2013 THOMAS SOLAR PANEL INSTALLER, RACHID R 461.9 SINUSITIS ACUTE 09/12/2013 THOMAS SOLAR PANEL INSTALLER, RACHID R 785.6 ENLARGEMENT OF LYMPH NODES 09/12/2013 LEVIN DO, MESFIN K 386.11 BENIGN PAROXYSMAL POSITIONAL VERTIGO 09/12/2013 LEVIN DO, MESFIN K 461.9 SINUSITIS ACUTE 09/12/2013 LEVIN DO, MESFIN K 785.6 ENLARGEMENT OF LYMPH NODES 09/12/2013 ANGELLA SOLAR PANEL INSTALLER, RASHAAD A 386.11 BENIGN PAROXYSMAL POSITIONAL VERTIGO 09/12/2013 ANGELLA SOLAR PANEL INSTALLER, RASHAAD A 461.9 SINUSITIS ACUTE 09/12/2013 ANGELLA SOLAR PANEL INSTALLER, RASHAAD A 785.6 ENLARGEMENT OF LYMPH NODES 09/12/2013 ANGELLA SOLAR PANEL INSTALLER, RASHAAD A 386.11 BENIGN PAROXYSMAL POSITIONAL VERTIGO 09/12/2013 ANGELLA SOLAR PANEL INSTALLER, RASHAAD A 461.9 SINUSITIS ACUTE 09/12/2013 ANGELLA SOLAR PANEL INSTALLER, RASHAAD A 785.6 ENLARGEMENT OF LYMPH NODES 09/12/2013 MADL SOLAR PANEL INSTALLER, STAR L 386.11 BENIGN PAROXYSMAL POSITIONAL VERTIGO 09/12/2013 MADL SOLAR PANEL INSTALLER, STAR L 461.9 SINUSITIS ACUTE 09/12/2013 MADL SOLAR PANEL INSTALLER, STAR L 785.6 ENLARGEMENT OF LYMPH NODES 09/12/2013 LEVIN DO, MESFIN K 386.11 BENIGN PAROXYSMAL POSITIONAL VERTIGO 09/12/2013 LEVIN DO, MESFIN K 461.9 SINUSITIS ACUTE 09/12/2013 LEVIN DO, MESFIN K 785.6 ENLARGEMENT OF LYMPH NODES 09/12/2013 LEVIN DO, MESFIN K 386.11 BENIGN PAROXYSMAL POSITIONAL VERTIGO 09/12/2013 LEVIN DO, MESFIN K 461.9 SINUSITIS ACUTE 09/12/2013 LEVIN DO, MESFIN K 785.6 ENLARGEMENT OF LYMPH NODES 09/12/2013 LEVIN DO, MESFIN K 386.11 BENIGN PAROXYSMAL POSITIONAL VERTIGO 09/12/2013 LEVIN DO, MESFIN K 461.9 SINUSITIS ACUTE 09/12/2013 LEVIN DO, MESFIN K 785.6 ENLARGEMENT OF LYMPH NODES 11/08/2013 ANGELLA SOLAR PANEL INSTALLER, RASHAAD A 599.0 URINARY TRACT INFECTION 11/08/2013 THOMAS SOLAR PANEL INSTALLER, RACHID R 599.0 URINARY TRACT INFECTION 11/08/2013 LEVIN DO, MESFIN K 599.0 URINARY TRACT INFECTION 11/08/2013 ANGELLA SOLAR PANEL INSTALLER, RASHAAD A 599.0 URINARY TRACT INFECTION 11/08/2013 ANGELLA SOLAR PANEL INSTALLER, RASHAAD A 599.0 URINARY TRACT INFECTION 11/08/2013 MADL SOLAR PANEL INSTALLER, STAR L 599.0 URINARY TRACT INFECTION 11/08/2013 LEVIN DO, MESFIN K 599.0 URINARY TRACT INFECTION 11/08/2013 LEVIN DO, MESFIN K 599.0 URINARY TRACT INFECTION 11/08/2013 LEVIN DO, MESFIN K 599.0 URINARY TRACT INFECTION 12/07/2013 THOMAS SOLAR PANEL INSTALLER RACHID R 528.9 OTHER AND UNSPECIFIED DISEASES OF THE ORAL SOFT TISSUES 12/07/2013 LEVIN DO, MESFIN K 528.9 OTHER AND UNSPECIFIED DISEASES OF THE ORAL SOFT TISSUES 12/07/2013 ANGELLA SOLAR PANEL INSTALLER, RASHAAD A 528.9 OTHER AND UNSPECIFIED DISEASES OF THE ORAL SOFT TISSUES 12/07/2013 ANGELLA SOLAR PANEL INSTALLER, RASHAAD A 528.9 OTHER AND UNSPECIFIED DISEASES OF THE ORAL SOFT TISSUES 12/07/2013 MADL SOLAR PANEL INSTALLER, STAR L 528.9 OTHER AND UNSPECIFIED DISEASES OF THE ORAL SOFT TISSUES 12/07/2013 LEVIN DO, MESFIN K 528.9 OTHER AND UNSPECIFIED DISEASES OF THE ORAL SOFT TISSUES 12/07/2013 LEVIN DO, MESFIN K 528.9 OTHER AND UNSPECIFIED DISEASES OF THE ORAL SOFT TISSUES 12/07/2013 LEVIN DO, MESFIN K 528.9 OTHER AND UNSPECIFIED DISEASES OF THE ORAL SOFT TISSUES 03/13/2014 LEVIN DO, MESFIN K 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 AGITANS 03/13/2014 LEVIN DO, MESFIN K 780.4 DIZZINESS AND VERTIGO 03/13/2014 ANGELLA SOLAR PANEL INSTALLER, RASHAAD A 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 AGITANS 03/13/2014 ANGELLA SOLAR PANEL INSTALLER, RASHAAD A 780.4 DIZZINESS AND VERTIGO 03/13/2014 ANGELLA SOLAR PANEL INSTALLER, RASHAAD A 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 AGITANS 03/13/2014 ANGELLA SOLAR PANEL INSTALLER, RASHAAD A 780.4 DIZZINESS AND VERTIGO 03/13/2014 MADL SOLAR PANEL INSTALLER, STAR L 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 AGITANS 03/13/2014 MADL SOLAR PANEL INSTALLER, STAR L 780.4 DIZZINESS AND VERTIGO 03/13/2014 LEVIN DO, MESFIN K 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 AGITANS 03/13/2014 LEVIN DO, MESFIN K 780.4 DIZZINESS AND VERTIGO 03/13/2014 LEVIN DO, MESFIN K 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 AGITANS 03/13/2014 LEVIN DO, MESFIN K 780.4 DIZZINESS AND VERTIGO 03/13/2014 LEVIN DO, MESFIN K 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 AGITANS 03/13/2014 LEVIN DO, MESFIN K 780.4 DIZZINESS AND VERTIGO 03/21/2014 ANGELLA SOLAR PANEL INSTALLER RASHAAD A V65.49 OTHER SPECIFIED COUNSELING 03/21/2014 ANGELLA SOLAR PANEL INSTALLER, RASHAAD A V72.31 TRANSMITTER OPERATOR EXAM, ROUTINE 03/21/2014 ANGELLA SOLAR PANEL INSTALLER, RASHAAD A V73.81 HPV SCREENING 03/21/2014 ANGELLA SABINO RASHAAD A V76.2 CERVICAL CANCER SCREENING (PAP SMEAR) 03/21/2014 ANGELLA SABINO RASHAAD A V76.51 COLON CANCER SCREENING 03/21/2014 ANGELLA SABINO RASHAAD A V65.49 OTHER SPECIFIED COUNSELING 03/21/2014 ANGELLA SOLAR PANEL INSTALLER RASHAAD A V72.31 TRANSMITTER OPERATOR EXAM, ROUTINE 03/21/2014 ANGELLA SOLAR PANEL INSTALLER, RASHAAD A V73.81 HPV SCREENING 03/21/2014 ANGELLA SOLAR PANEL INSTALLER RASHAAD A V76.2 CERVICAL CANCER SCREENING (PAP SMEAR) 03/21/2014 ANGELLA SOLAR PANEL INSTALLER, RASHAAD A V76.51 COLON CANCER SCREENING 03/21/2014 LUZ MARIAL SOLAR PANEL INSTALLER, STAR L V65.49 OTHER SPECIFIED COUNSELING 03/21/2014 MADL SOLAR PANEL INSTALLER, STAR L V72.31 TRANSMITTER OPERATOR EXAM, ROUTINE 03/21/2014 MADL SOLAR PANEL INSTALLER, STAR L V73.81 HPV SCREENING 03/21/2014 MADL SOLAR PANEL INSTALLER, STAR L V76.2 CERVICAL CANCER SCREENING (PAP SMEAR) 03/21/2014 MADL SOLAR PANEL INSTALLER, STAR L V76.51 COLON CANCER SCREENING 03/21/2014 LEVIN DO, MESFIN K V65.49 OTHER SPECIFIED COUNSELING 03/21/2014 LEVIN DO, MESFIN K V72.31 TRANSMITTER OPERATOR EXAM, ROUTINE 03/21/2014 LEVIN DO, MESFIN K V73.81 HPV SCREENING 03/21/2014 LEVIN DO, MESFIN K V76.2 CERVICAL CANCER SCREENING (PAP SMEAR) 03/21/2014 LEVIN DO, MESFIN K V76.51 COLON CANCER SCREENING 03/21/2014 LEVIN DO MESFIN K V65.49 OTHER SPECIFIED COUNSELING 03/21/2014 LEVIN DO, MESFIN K V72.31 TRANSMITTER OPERATOR EXAM, ROUTINE 03/21/2014 LEVIN DO, MESFIN K V73.81 HPV SCREENING 03/21/2014 LEVIN DO, MESFIN K V76.2 CERVICAL CANCER SCREENING (PAP SMEAR) 03/21/2014 LEVIN DO, MESFIN K V76.51 COLON CANCER SCREENING 03/21/2014 LEVIN DO, MESFIN K V65.49 OTHER SPECIFIED COUNSELING 03/21/2014 LEVIN DO, MESFIN K V72.31 TRANSMITTER OPERATOR EXAM, ROUTINE 03/21/2014 LEVIN DO, MESFIN K V73.81 HPV SCREENING 03/21/2014 LEVIN DO, MESFIN K V76.2 CERVICAL CANCER SCREENING (PAP SMEAR) 03/21/2014 LEVIN DO MESFIN K V76.51 COLON CANCER SCREENING 04/03/2014 Ot V76.12 04/03/2014 Ot V76.12 04/03/2014 Ot 785.1 04/03/2014 Ot 785.1 04/03/2014 Ot 401.9 04/03/2014 Ot 429.3 04/03/2014 Ot 785.1 04/03/2014 [facility] Ot 611.71 04/03/2014 USMAN MCCRAY, MOLLY Zavala Ot 332.0 04/10/2014 RASHAAD PERALES APRN Ot V76.12 04/18/2014 MADL SOLAR PANEL INSTALLER, STAR L 466.0 ACUTE BRONCHITIS 04/18/2014 MADL SOLAR PANEL INSTALLER, STAR L 786.30 HEMOPTYSIS UNSPECIFIED 04/18/2014 LEVIN DO, MESFIN K 466.0 ACUTE BRONCHITIS 04/18/2014 LEVIN DO, MESFIN K 786.30 HEMOPTYSIS UNSPECIFIED 04/18/2014 LEVIN DO, MESFIN K 466.0 ACUTE BRONCHITIS 04/18/2014 LEVIN DO, MESFIN K 786.30 HEMOPTYSIS UNSPECIFIED 04/18/2014 LEVIN DO, MESFIN K 466.0 ACUTE BRONCHITIS 04/18/2014 LEVIN DO, MESFIN K 786.30 HEMOPTYSIS UNSPECIFIED 06/09/2014 LEVIN DO, MESFIN K 112.0 CANDIDIASIS OF MOUTH 06/09/2014 LEVIN DO, MESFIN K 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 06/09/2014 LEVIN DO, MESFIN K 461.9 SINUSITIS ACUTE 06/09/2014 LEVIN DO, MESFIN K 527.7 DISTURBANCE OF SALIVARY SECRETION 06/09/2014 LEVIN DO, MESFIN K 112.0 CANDIDIASIS OF MOUTH 06/09/2014 LEVIN DO, MESFIN K 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 06/09/2014 LEVIN DO, MESFIN K 461.9 SINUSITIS ACUTE 06/09/2014 LEVIN DO, MESFIN K 527.7 DISTURBANCE OF SALIVARY SECRETION 06/09/2014 LEVIN DO, MESFIN K 112.0 CANDIDIASIS OF MOUTH 06/09/2014 LEVIN DO, MESFIN K 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 06/09/2014 LEVIN DO, MESFIN K 461.9 SINUSITIS ACUTE 06/09/2014 LEVIN DO, MESFIN K 527.7 DISTURBANCE OF SALIVARY SECRETION 07/07/2014 LEVIN DO, MESFIN K 564.00 UNSPECIFIED CONSTIPATION 07/07/2014 LEVIN DO, MESFIN K 564.00 UNSPECIFIED CONSTIPATION 07/27/2014 LEVIN DO, MESFIN K 466.0 BRONCHITIS, ACUTE 08/03/2014 LEVIN DO, MESFIN K 466.0 BRONCHITIS, ACUTE 08/03/2014 LEVIN DO, MESFIN K 780.52 INSOMNIA UNSPECIFIED 05/14/2015 RASHAAD PERALES SOLAR PANEL INSTALLER Ot V76.12 03/10/2016 RASHAAD PERALES SOLAR PANEL INSTALLER Ot V76.12 OTH SCREEN MAMMO-MALIGN NEOPLASM OF AMANDA 03/10/2016 MARYANA ROJO Ot Z12.31 ENCNTR SCREEN MAMMOGRAM FOR MALIGNANT NE 03/10/2016 RASHAAD PERALES SOLAR PANEL INSTALLER Ot V76.12 OTH SCREEN MAMMO-MALIGN NEOPLASM OF AMANDA 03/10/2016 MARYANA ROJO Ot Z12.31 ENCNTR SCREEN MAMMOGRAM FOR MALIGNANT NE 03/13/2016 Ot 785.1 PALPITATIONS 03/13/2016 AARON ISLAS DO Ot Z01.818 ENCOUNTER FOR OTHER PREPROCEDURAL EXAMIN 03/13/2016 AARON ISLAS DO Ot Z12.11 ENCOUNTER FOR SCREENING FOR MALIGNANT NE 03/14/2016 AARON ISLAS DO Ot Z01.818 ENCOUNTER FOR OTHER PREPROCEDURAL EXAMIN 03/14/2016 AARON ISLAS DO Ot Z12.11 ENCOUNTER FOR SCREENING FOR MALIGNANT NE 03/18/2016 AARON ISLAS DO Ot I10 ESSENTIAL (PRIMARY) HYPERTENSION 03/18/2016 AARON ISLAS DO Ot J44.9 CHRONIC OBSTRUCTIVE PULMONARY DISEASE, U 03/18/2016 AARON ISLAS DO Ot K52.9 NONINFECTIVE GASTROENTERITIS AND COLITIS 03/18/2016 AARON ISLAS DO Ot Z12.11 ENCOUNTER FOR SCREENING FOR MALIGNANT NE 03/19/2016 AARON ISLAS DO Ot I10 ESSENTIAL (PRIMARY) HYPERTENSION 03/19/2016 AARON ISLAS DO Ot J44.9 CHRONIC OBSTRUCTIVE PULMONARY DISEASE, U 03/19/2016 AARON ISLAS DO Ot K52.9 NONINFECTIVE GASTROENTERITIS AND COLITIS 03/19/2016 AARON ISLAS DO Ot Z12.11 ENCOUNTER FOR SCREENING FOR MALIGNANT NE 03/24/2016 AARON ISLAS DO Ot I10 ESSENTIAL (PRIMARY) HYPERTENSION 03/24/2016 AARON ISLAS DO Ot J44.9 CHRONIC OBSTRUCTIVE PULMONARY DISEASE, U 03/24/2016 AARON ISLAS DO Ot K52.9 NONINFECTIVE GASTROENTERITIS AND COLITIS 03/24/2016 AARNO ISLAS DO Ot Z12.11 ENCOUNTER FOR SCREENING FOR MALIGNANT NE 03/26/2016 AARON ISLAS DO Ot I10 ESSENTIAL (PRIMARY) HYPERTENSION 03/26/2016 AARON ISLAS DO Ot J44.9 CHRONIC OBSTRUCTIVE PULMONARY DISEASE, U 03/26/2016 AARON ISLAS DO Ot K52.9 NONINFECTIVE GASTROENTERITIS AND COLITIS 03/26/2016 AARON ISLAS DO Ot Z12.11 ENCOUNTER FOR SCREENING FOR MALIGNANT NE 05/27/2016 NAZ MACKENZIE DO Ot R79.89 OTHER SPECIFIED ABNORMAL FINDINGS OF BLO 05/27/2016 NAZ MACKENZIE DO Ot R79.89 OTHER SPECIFIED ABNORMAL FINDINGS OF BLO 06/20/2016 RASHAAD PERALES SOLAR PANEL INSTALLER Ot V76.12 OTH SCREEN MAMMO-MALIGN NEOPLASM OF AMANDA 06/20/2016 MARYANA ROJO COMPRESSOR STATION CHIEF ENGINEER Ot Z12.31 ENCNTR SCREEN MAMMOGRAM FOR MALIGNANT NE 06/26/2016 DEFFENBAUGH DO, NAZ D Ot 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 06/26/2016 DEFFENBAUGH DO, NAZ D Ot R19.5 OTHER FECAL ABNORMALITIES 07/02/2016 DEFFENBAUGH DO, NAZ D Ot R79.89 OTHER SPECIFIED ABNORMAL FINDINGS OF BLO 07/04/2016 DEFFENBAUGH DO, NAZ D Ot 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 07/04/2016 DEFFENBAUGH DO, NAZ D Ot R19.5 OTHER FECAL ABNORMALITIES 07/04/2016 DEFFENBAUGH DO, NAZ D Ot 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 07/04/2016 DEFFENBAUGH DO, NAZ D Ot R19.5 OTHER FECAL ABNORMALITIES 07/04/2016 DEFFENBAUGH DO, NAZ D Ot R79.89 OTHER SPECIFIED ABNORMAL FINDINGS OF BLO 07/04/2016 DEFFENBAUGH DO, NAZ D Ot 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 07/04/2016 DEFFENBAUGH DO, NAZ D Ot R19.5 OTHER FECAL ABNORMALITIES 07/11/2016 MARYANA ROJO COMPRESSOR STATION CHIEF ENGINEER Ot Z12.31 ENCNTR SCREEN MAMMOGRAM FOR MALIGNANT NE 08/13/2016 DEFFENBAUGH DO, NAZ D Ot 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 08/13/2016 DEFFENBAUGH DO, NAZ D Ot R19.5 OTHER FECAL ABNORMALITIES 08/14/2016 DEFFENBAUGH DO, NAZ D Ot 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89 OTHER SPECIFIED ABNORMAL FINDINGS OF BLO 11/10/2016 MARCIN MONTANO MD Ot R19.7 DIARRHEA, UNSPECIFIED 03/17/2017 MANDA MCCRAY FACC, ALI FACP CCDS Ot R00.2 PALPITATIONS 03/17/2017 MANDA DAVIDSONC, ALI FACP CCDS Ot R00.2 PALPITATIONS 03/17/2017 ANGELLA, RASHAAD Hemant SOLAR PANEL INSTALLER Ot V76.12 OTH SCREEN MAMMO-MALIGN NEOPLASM OF AMANDA 03/17/2017 MARYANA ROJO COMPRESSOR STATION CHIEF ENGINEER Ot Z12.31 ENCNTR SCREEN MAMMOGRAM FOR MALIGNANT NE 03/17/2017 NAZ MACKENZIE DO Ot R79.89 OTHER SPECIFIED ABNORMAL FINDINGS OF BLO 03/17/2017 MARYANA ROJO COMPRESSOR STATION CHIEF ENGINEER Ot Z12.31 ENCNTR SCREEN MAMMOGRAM FOR MALIGNANT NE 03/17/2017 MARCIN MONTANO MD Ot R19.7 DIARRHEA, UNSPECIFIED 03/17/2017 MANDA DAVIDSONC, ALI FACP CCDS Ot R00.2 PALPITATIONS 03/17/2017 MANDA DAVIDSONC, ALI FACP CCDS Ot I10 ESSENTIAL (PRIMARY) HYPERTENSION 03/17/2017 MANDA DAVIDSONC, ALI FACP CCDS Ot J43.8 OTHER EMPHYSEMA 03/17/2017 MANDA DAVIDSONC, ALI FACP CCDS Ot R00.2 PALPITATIONS 03/17/2017 MANDA DAVIDSONC, ALI FACP CCDS Ot Z87.891 PERSONAL HISTORY OF NICOTINE DEPENDENCE 04/07/2017 MANDA DAVIDSONC, ALI FACP CCDS Ot I10 ESSENTIAL (PRIMARY) HYPERTENSION 04/07/2017 MANDA DAVIDSONC, ALI FACP CCDS Ot J43.8 OTHER EMPHYSEMA 04/07/2017 MANDA DAVIDSONC, ALI FACP CCDS Ot R00.2 PALPITATIONS 04/07/2017 MANDA MCCRAY FACC, ALI FACP CCDS Ot Z87.891 PERSONAL HISTORY OF NICOTINE DEPENDENCE 04/09/2017 MANDA DAVIDSONC, ALI FACP CCDS Ot I10 ESSENTIAL (PRIMARY) HYPERTENSION 04/09/2017 MANDA DAVIDSONC, ALI FACP CCDS Ot J43.8 OTHER EMPHYSEMA 04/09/2017 MANDA DAVIDSONC, ALI FACP CCDS Ot R00.2 PALPITATIONS 04/09/2017 MANDA DAVIDSONC, ALI FACP CCDS Ot Z87.891 PERSONAL HISTORY OF NICOTINE DEPENDENCE 04/09/2017 BAIMA, JELANI L COMPRESSOR STATION CHIEF ENGINEER Ot E87.6 HYPOKALEMIA 04/09/2017 BAIMA, JELANI L COMPRESSOR STATION CHIEF ENGINEER Ot I10 ESSENTIAL (PRIMARY) HYPERTENSION 04/09/2017 BAIMA, JELANI L COMPRESSOR STATION CHIEF ENGINEER Ot J43.8 OTHER EMPHYSEMA 04/09/2017 BAIMA, JELANI L COMPRESSOR STATION CHIEF ENGINEER Ot R00.2 PALPITATIONS 04/14/2017 MANDA DAVIDSONC, ALI FACP CCDS Ot I10 ESSENTIAL (PRIMARY) HYPERTENSION 04/14/2017 MANDA DAVIDSONC, ALI FACP CCDS Ot J43.8 OTHER EMPHYSEMA 04/14/2017 MANDA DAVIDSONC, ALI FACP CCDS Ot R00.2 PALPITATIONS 04/14/2017 MANDA DAVIDSONC, ALI FACP CCDS Ot Z87.891 PERSONAL HISTORY OF NICOTINE DEPENDENCE 04/23/2017 BAIMA, JELANI L COMPRESSOR STATION CHIEF ENGINEER Ot E87.6 HYPOKALEMIA 04/23/2017 BAIMA, JELANI L COMPRESSOR STATION CHIEF ENGINEER Ot I10 ESSENTIAL (PRIMARY) HYPERTENSION 04/23/2017 BAIMA, JELANI L COMPRESSOR STATION CHIEF ENGINEER Ot J43.8 OTHER EMPHYSEMA 04/23/2017 BAIMA, JELANI L COMPRESSOR STATION CHIEF ENGINEER Ot R00.2 PALPITATIONS 04/30/2017 BAIMA, JELANI L COMPRESSOR STATION CHIEF ENGINEER Ot E87.6 HYPOKALEMIA 04/30/2017 BAIMA, JELANI L COMPRESSOR STATION CHIEF ENGINEER Ot I10 ESSENTIAL (PRIMARY) HYPERTENSION 04/30/2017 ZEYADMA, JELANI L COMPRESSOR STATION CHIEF ENGINEER Ot J43.8 OTHER EMPHYSEMA 04/30/2017 BAIMA, JELANI L COMPRESSOR STATION CHIEF ENGINEER Ot R00.2 PALPITATIONS 05/06/2017 MANDA DAVIDSONC, ALI FACP CCDS Ot E87.6 HYPOKALEMIA 05/15/2017 MANDA MCCRAY FACC, ALI FACP CCDS Ot E87.6 HYPOKALEMIA 05/15/2017 MANDA MCCRAY FACC, ALI FACP CCDS Ot I10 ESSENTIAL (PRIMARY) HYPERTENSION 05/15/2017 MANDA MCCRAY FACC, ALI FACP CCDS Ot J43.8 OTHER EMPHYSEMA 05/15/2017 MANDA MCCRAY FACC, ALI FACP CCDS Ot K58.0 IRRITABLE BOWEL SYNDROME WITH DIARRHEA 05/15/2017 MANDA DAVIDSON, ALI FACP CCDS Ot R00.2 PALPITATIONS 05/15/2017 MANDA DAVIDSON, ALI FACP CCDS Ot E87.6 HYPOKALEMIA 05/15/2017 MANDA DAVIDSON, ALI FACP CCDS Ot I10 ESSENTIAL (PRIMARY) HYPERTENSION 05/15/2017 MANDA DAVIDSON, ALI FACP CCDS Ot J43.8 OTHER EMPHYSEMA 05/15/2017 MANDA DAVIDSON, ALI FACP CCDS Ot K58.0 IRRITABLE BOWEL SYNDROME WITH DIARRHEA 05/15/2017 MANDA [facility], ALI FACP CCDS Ot R00.2 PALPITATIONS 05/18/2017 NAZ MACKENZIE DO Ot R79.89 OTHER SPECIFIED ABNORMAL FINDINGS OF BLO 05/27/2017 JELANI SHERWOOD COMPRESSOR STATION CHIEF ENGINEER Ot E87.6 HYPOKALEMIA 06/02/2017 MANDA [facility], ALI FACP CCDS Ot E87.6 HYPOKALEMIA 06/02/2017 MANDA [facility], ALI FACP CCDS Ot I10 ESSENTIAL (PRIMARY) HYPERTENSION 06/02/2017 MANDA [facility], ALI FACP CCDS Ot I47.1 SUPRAVENTRICULAR TACHYCARDIA 06/05/2017 MANDA DAVIDSON, ALI FACP CCDS Ot E87.6 HYPOKALEMIA 06/05/2017 MANDA [facility], ALI FACP CCDS Ot I10 ESSENTIAL (PRIMARY) HYPERTENSION 06/05/2017 MANDA DAVIDSON, ALI FACP CCDS Ot J43.8 OTHER EMPHYSEMA 06/05/2017 MANDA DAVIDSON, ALI FACP CCDS Ot K58.0 IRRITABLE BOWEL SYNDROME WITH DIARRHEA 06/05/2017 MANDA DAVIDSON, ALI FACP CCDS Ot R00.2 PALPITATIONS 06/11/2017 NAYA JACKSON Ot Z12.31 ENCNTR SCREEN MAMMOGRAM FOR MALIGNANT NE 06/22/2017 NAYA JACKSON Ot N63.0 UNSPECIFIED LUMP IN UNSPECIFIED BREAST 06/22/2017 NAYA JACKSON Ot Z12.31 ENCNTR SCREEN MAMMOGRAM FOR MALIGNANT NE 06/23/2017 MANDA MCCRAY FACC, ALI FACP CCDS Ot E87.6 HYPOKALEMIA 06/23/2017 MANDA MCCRAY FACC, STEPHANI FACP CCDS Ot I10 ESSENTIAL (PRIMARY) HYPERTENSION 06/23/2017 MANDA MCCRAY FACC, ALI FACP CCDS Ot J43.8 OTHER EMPHYSEMA 06/23/2017 MANDA MCCRAY FACC, ALI FACP CCDS Ot R00.2 PALPITATIONS 06/23/2017 MANDA MCCRAY FACC, ALI FACP CCDS Ot Z72.0 TOBACCO USE 06/28/2017 NAYA JACKSON COMPRESSOR STATION CHIEF ENGINEER Ot N63.0 UNSPECIFIED LUMP IN UNSPECIFIED BREAST 06/28/2017 NAYA JACKSON COMPRESSOR STATION CHIEF ENGINEER Ot Z12.31 ENCNTR SCREEN MAMMOGRAM FOR MALIGNANT NE 07/03/2017 NAYA JACKSON COMPRESSOR STATION CHIEF ENGINEER Ot R92.8 OTH ABN AND INCONCLUSIVE FINDINGS ON DX 07/03/2017 NAYA JACKSON COMPRESSOR STATION CHIEF ENGINEER Ot N63.10 UNSPECIFIED LUMP IN THE RIGHT BREAST, UN 07/03/2017 NAYA JACKSON COMPRESSOR STATION CHIEF ENGINEER Ot N63.20 UNSPECIFIED LUMP IN THE LEFT BREAST, UNS 07/14/2017 NAYA JACKSON COMPRESSOR STATION CHIEF ENGINEER Ot N63.0 UNSPECIFIED LUMP IN UNSPECIFIED BREAST 07/14/2017 NAYA JACKSON COMPRESSOR STATION CHIEF ENGINEER Ot Z12.31 ENCNTR SCREEN MAMMOGRAM FOR MALIGNANT NE 07/14/2017 MANDA MCCRAY FACC, STEPHANI FACP CCDS Ot E87.6 HYPOKALEMIA 07/14/2017 MANDA MCCRAY FACC, ALI FACP CCDS Ot I10 ESSENTIAL (PRIMARY) HYPERTENSION 07/14/2017 MANDA DAVIDSON, ALI FACP CCDS Ot J43.8 OTHER EMPHYSEMA 07/14/2017 MANDA DAVIDSON, ALI FACP CCDS Ot R00.2 PALPITATIONS 07/14/2017 MANDA DAVIDSON, ALI FACP CCDS Ot Z72.0 TOBACCO USE 08/03/2017 NAYA JACKSON COMPRESSOR STATION CHIEF ENGINEER Ot N63.10 UNSPECIFIED LUMP IN THE RIGHT BREAST, UN 08/03/2017 NAYA JACKSON COMPRESSOR STATION CHIEF ENGINEER Ot N63.20 UNSPECIFIED LUMP IN THE LEFT BREAST, UNS 11/02/2017 NAYA JACKSON COMPRESSOR STATION CHIEF ENGINEER Ot N63.10 UNSPECIFIED LUMP IN THE RIGHT BREAST, UN 11/02/2017 NAYA JACKSON COMPRESSOR STATION CHIEF ENGINEER Ot N63.20 UNSPECIFIED LUMP IN THE LEFT BREAST, UNS 01/13/2018 RASHAAD PERALES APRN Ot V76.12 OT SCREEN MAMMO-MALIGN NEOPLASM OF AMANDA 01/13/2018 MARYANA ROJO COMPRESSOR STATION CHIEF ENGINEER Ot Z12.31 ENCNTR SCREEN MAMMOGRAM FOR MALIGNANT NE 01/13/2018 MARYANA ROJO COMPRESSOR STATION CHIEF ENGINEER Ot Z12.31 ENCNTR SCREEN MAMMOGRAM FOR MALIGNANT NE 01/13/2018 CHARMAINE MCCRAY, MARCIN Sanchez Ot R19.7 DIARRHEA, UNSPECIFIED 01/13/2018 MANDA MCCRAY FACC, ALI FACP CCDS Ot I10 ESSENTIAL (PRIMARY) HYPERTENSION 01/13/2018 MANDA MCCRAY FACC, ALI FACP CCDS Ot J43.8 OTHER EMPHYSEMA 01/13/2018 MANDA MCCRAY FACC, ALI FACP CCDS Ot R00.2 PALPITATIONS 01/13/2018 MANDA MCCRAY FACC, ALI FACP CCDS Ot Z87.891 PERSONAL HISTORY OF NICOTINE DEPENDENCE 01/13/2018 MANDA MCCRAY FACC, ALI FACP CCDS Ot I10 ESSENTIAL (PRIMARY) HYPERTENSION 01/13/2018 MANDA MCCRAY FACC, ALI FACP CCDS Ot J43.8 OTHER EMPHYSEMA 01/13/2018 MANDA MCCRAY FACC, ALI FACP CCDS Ot R00.2 PALPITATIONS 01/13/2018 MANDA MCCRAY FACC, ALI FACP CCDS Ot Z87.891 PERSONAL HISTORY OF NICOTINE DEPENDENCE 01/13/2018 MANDA DAVIDSONC, ALI FACP CCDS Ot I10 ESSENTIAL (PRIMARY) HYPERTENSION 01/13/2018 MANDA MCCRAY FACC, ALI FACP CCDS Ot J43.8 OTHER EMPHYSEMA 01/13/2018 MANDA MCCRAY FACC, ALI FACP CCDS Ot R00.2 PALPITATIONS 01/13/2018 MANDA MCCRAY FAC, ALI FACP CCDS Ot Z87.891 PERSONAL HISTORY OF NICOTINE DEPENDENCE 01/13/2018 BAIMA, JELANI L COMPRESSOR STATION CHIEF ENGINEER Ot E87.6 HYPOKALEMIA 01/13/2018 BAIMA, JELANI L COMPRESSOR STATION CHIEF ENGINEER Ot I10 ESSENTIAL (PRIMARY) HYPERTENSION 01/13/2018 BAIMA, JELANI L COMPRESSOR STATION CHIEF ENGINEER Ot J43.8 OTHER EMPHYSEMA 01/13/2018 BAIMA, JELANI L COMPRESSOR STATION CHIEF ENGINEER Ot R00.2 PALPITATIONS 01/13/2018 BAIMA, JELANI L COMPRESSOR STATION CHIEF ENGINEER Ot E87.6 HYPOKALEMIA 01/13/2018 BAIMA, JELANI L COMPRESSOR STATION CHIEF ENGINEER Ot I10 ESSENTIAL (PRIMARY) HYPERTENSION 01/13/2018 JELANI SHERWOOD COMPRESSOR STATION CHIEF ENGINEER Ot J43.8 OTHER EMPHYSEMA 01/13/2018 JELANI SHERWOOD COMPRESSOR STATION CHIEF ENGINEER Ot R00.2 PALPITATIONS 01/13/2018 MANDA DAVIDSON, ALI FACP CCDS Ot E87.6 HYPOKALEMIA 01/13/2018 JELANI SHERWOOD L COMPRESSOR STATION CHIEF ENGINEER Ot E87.6 HYPOKALEMIA 01/13/2018 MANDA MCCRAY FACC, ALI FACP CCDS Ot E87.6 HYPOKALEMIA 01/13/2018 MANDA [facility], ALI FACP CCDS Ot I10 ESSENTIAL (PRIMARY) HYPERTENSION 01/13/2018 MANDA DAVIDSONC, ALI FACP CCDS Ot I47.1 SUPRAVENTRICULAR TACHYCARDIA 01/13/2018 MANDA MCCRAY [facility], ALI FACP CCDS Ot E87.6 HYPOKALEMIA 01/13/[address] [facility] FACP CCDS Ot I10 ESSENTIAL (PRIMARY) HYPERTENSION 01/13/2018 MANDA MCCRAY [facility], ALI FACP CCDS Ot J43.8 OTHER EMPHYSEMA 01/13/2018 MANDA [facility]CR[facility], ALI FACP CCDS Ot K58.0 IRRITABLE BOWEL SYNDROME WITH DIARRHEA 01/13/2018 MANDA [facility], ALI FACP CCDS Ot R00.2 PALPITATIONS 01/13/2018 NAYA JACKSON COMPRESSOR STATION CHIEF ENGINEER Ot N63.0 UNSPECIFIED LUMP IN UNSPECIFIED BREAST 01/13/2018 NAYA JACKSON [employer] Ot Z12.31 ENCNTR SCREEN MAMMOGRAM FOR MALIGNANT NE 01/13/2018 MANDA DAVIDSON, ALI FACP CCDS Ot E87.6 HYPOKALEMIA 01/13/2018 MANDA DAVIDSON, ALI FACP CCDS Ot I10 ESSENTIAL (PRIMARY) HYPERTENSION 01/13/2018 MANDA DAVIDSON, ALI FACP CCDS Ot J43.8 OTHER EMPHYSEMA 01/13/2018 MANDA DAVIDSON, ALI FACP CCDS Ot R00.2 PALPITATIONS 01/13/2018 MANDA DAVIDSON, ALI FACP CCDS Ot Z72.0 TOBACCO USE 01/13/2018 NAYA JACKSON [employer] Ot N63.10 UNSPECIFIED LUMP IN THE RIGHT BREAST, UN 01/13/2018 NAYA JACKSON [employer] Ot N63.20 UNSPECIFIED LUMP IN THE LEFT BREAST, UNS 01/13/2018 NAYA JACKSON Ot R92.2 INCONCLUSIVE MAMMOGRAM 01/14/2018 NAYA JACKSONP Ot N63.10 UNSPECIFIED LUMP IN THE RIGHT BREAST, UN 01/14/2018 NAYA JACKSONP Ot N63.20 UNSPECIFIED LUMP IN THE LEFT BREAST, UNS 02/03/2018 NAYA JACKSONP Ot N63.10 UNSPECIFIED LUMP IN THE RIGHT BREAST, UN 02/03/2018 NAYA JACKSONP Ot N63.20 UNSPECIFIED LUMP IN THE LEFT BREAST, UNS Procedures Code Description [place] [address] ROUTINE VENIPUNCTURE 08/30/2012 50248 MRI SPINE (CERVICAL) W/O CONTRAST 08/30/2012 56584 MRI SPINE (THORACIC) W/O CONTRAST 08/30/2012 99434 MRI SPINE (LUMBAR) W/O CONTRAST 08/30/2012 94543 CMP 08/30/2012 14294 LIPID PANEL 08/30/2012 2812443 GFR CALC (RESULT ONLY) 08/30/2012 J1040 DEPO MEDROL 80 MG INJ 09/27/2012 89503 OXIMETRY 09/27/2012 84426 US BREAST(S) ULTRASOUND, BOTH 02/28/2013 83564 MAMMOGRAM DX, YARI 02/28/2013 65003 CMP 06/28/2013 89354 LIPID PANEL 06/28/2013 97899 ROUTINE VENIPUNCTURE 06/28/2013 NEUROLOGY DOLORES ESCUDERO 07/04/2013 55350 A1C (IN-HOUSE) 07/04/2013 99301 SKIN TAG REM 1-15 07/05/2013 77453 UA W/ CULTURE IF INDICATED 11/08/2013 98427 CULTURE URINE 11/08/2013 76008 ROUTINE VENIPUNCTURE 03/13/2014 19931 CMP 03/13/2014 50768 LIPID PANEL 03/13/2014 Q0091 PAP SMEAR OBTAIN SMEAR 03/21/2014 51976 MAMMOGRAM, SCREENING 03/24/2014 33079 PAP SMEAR 03/27/2014 36241 HEMOCCULT 03/28/2014 03102 ROUTINE VENIPUNCTURE 04/18/2014 61786 XRAY CHEST 2 VIEW 04/18/2014 69128 MYCOPLASMA ANTIBODY 04/18/2014 02127 CBC 04/19/2014 69654 A1C (IN-HOUSE) 06/09/2014 37363 OXIMETRY 08/11/2014 Results Test Result Range CBC With Differential/Platelet - 01/21/16 12:03 WBC 11.7 x10E3/uL 3.4-10.8 RBC 5.03 x10E6/uL 3.77-5.28 Hemoglobin 13.5 g/dL 11.1-15.9 Hematocrit 40.5 % 34.0-46.6 MCV 81 fL 79-97 MCH 26.8 pg 26.6-33.0 MCHC 33.3 g/dL 31.5-35.7 RDW 15.3 % 12.3-15.4 Platelets 382 x10E3/uL 150-379 Neutrophils 58 % Lymphs 29 % Monocytes 7 % Eos 6 % Basos 0 % Neutrophils (Absolute) 6.9 x10E3/uL 1.4-7.0 Lymphs (Absolute) 3.3 x10E3/uL 0.7-3.1 Monocytes(Absolute) 0.8 x10E3/uL 0.1-0.9 Eos (Absolute) 0.6 x10E3/uL 0.0-0.4 Baso (Absolute) 0.1 x10E3/uL 0.0-0.2 Immature Granulocytes 0 % Immature Grans (Abs) 0.0 x10E3/uL 0.0-0.1 Comp. Metabolic Panel (14) - 01/21/16 12:03 Glucose, Serum 87 mg/dL 65-99 BUN 20 mg/dL 8-27 Creatinine, Serum 0.78 mg/dL 0.57-1.00 eGFR If NonAfricn Am 81 mL/min/1.73 >59 eGFR If Africn Am 93 mL/min/1.73 >59 BUN/Creatinine Ratio 26 11-26 Sodium, Serum 143 mmol/L 134-144 Potassium, Serum 4.4 mmol/L 3.5-5.2 Chloride, Serum 100 mmol/L 97-108 Carbon Dioxide, Total 30 mmol/L 18-29 Calcium, Serum 10.3 mg/dL 8.7-10.3 Protein, Total, Serum 6.8 g/dL 6.0-8.5 Albumin, Serum 4.3 g/dL 3.6-4.8 Globulin, Total 2.5 g/dL 1.5-4.5 A/G Ratio 1.7 1.1-2.5 Bilirubin, Total 0.2 mg/dL 0.0-1.2 Alkaline Phosphatase, S 129 IU/L 39-117 AST (SGOT) 11 IU/L 0-40 ALT (SGPT) 11 IU/L 0-32 Lipid Panel - 01/21/16 12:03 Cholesterol, Total 190 mg/dL 100-199 Triglycerides 173 mg/dL 0-149 HDL Cholesterol 53 mg/dL >39 VLDL Cholesterol Michi 35 mg/dL 5-40 LDL Cholesterol Calc 102 mg/dL 0-99 TSH - 01/21/16 12:03 TSH 1.960 uIU/mL 0.450-4.500 CBC With Differential/Platelet - 04/22/16 11:16 WBC 8.5 x10E3/uL 3.4-10.8 RBC 4.78 x10E6/uL 3.77-5.28 Hemoglobin 12.7 g/dL 11.1-15.9 Hematocrit 38.1 % 34.0-46.6 MCV 80 fL 79-97 MCH 26.6 pg 26.6-33.0 MCHC 33.3 g/dL 31.5-35.7 RDW 15.6 % 12.3-15.4 Platelets 380 x10E3/uL 150-379 Neutrophils 50 % Lymphs 38 % Monocytes 8 % Eos 4 % Basos 0 % Neutrophils (Absolute) 4.2 x10E3/uL 1.4-7.0 Lymphs (Absolute) 3.2 x10E3/uL 0.7-3.1 Monocytes(Absolute) 0.7 x10E3/uL 0.1-0.9 Eos (Absolute) 0.4 x10E3/uL 0.0-0.4 Baso (Absolute) 0.0 x10E3/uL 0.0-0.2 Immature Granulocytes 0 % Immature Grans (Abs) 0.0 x10E3/uL 0.0-0.1 Comp. Metabolic Panel (14) - 04/22/16 11:16 Glucose, Serum 115 mg/dL 65-99 BUN 19 mg/dL 8-27 Creatinine, Serum 0.65 mg/dL 0.57-1.00 eGFR If NonAfricn Am 94 mL/min/1.73 >59 eGFR If Africn Am 109 mL/min/1.73 >59 BUN/Creatinine Ratio 29 11-26 Sodium, Serum 144 mmol/L 134-144 Potassium, Serum 4.0 mmol/L 3.5-5.2 Chloride, Serum 101 mmol/L 96-106 Carbon Dioxide, Total 24 mmol/L 18-29 Calcium, Serum 9.2 mg/dL 8.7-10.3 Protein, Total, Serum 6.3 g/dL 6.0-8.5 Albumin, Serum 4.0 g/dL 3.6-4.8 Globulin, Total 2.3 g/dL 1.5-4.5 A/G Ratio 1.7 1.1-2.5 Bilirubin, Total 0.3 mg/dL 0.0-1.2 Alkaline Phosphatase, S 127 IU/L 39-117 AST (SGOT) 11 IU/L 0-40 ALT (SGPT) 8 IU/L 0-32 Lipid Panel - 04/22/16 11:16 Cholesterol, Total 287 mg/dL 100-199 Triglycerides 173 mg/dL 0-149 HDL Cholesterol 45 mg/dL >39 VLDL Cholesterol Michi 35 mg/dL 5-40 LDL Cholesterol Calc 207 mg/dL 0-99 Comment: Comment Alkaline phosphatase isoenzymes measurement - 05/15/16 13:15 Serum or plasma liver alkaline phosphatase measurement (enzymatic activity/ volume) 97 H 0-94 Serum or plasma bone alkaline phosphatase measurement (mass/volume) 39 U/L 0-55 Alkaline phosphatase isoenzymes 136 H U/L 40-120 Fecal fat measurement - 05/21/16 10:30 Fecal fat measurement 4.2 % 0.0-6.0 Serum smooth muscle antibody detection - 05/26/16 12:25 Serum smooth muscle antibody assay (units/volume) <1:20 <1:20 Serum mitochondria antibody assay (units/volume) - 05/26/16 12:25 Serum mitochondria antibody assay (units/volume) <1:20 < 1:20 [id number] - 10/17/16 10:13 Serum tissue transglutaminase IgA antibody detection 3 0 -19 Serum gliadin IgA antibody assay (units/volume) 2 % 0-19 Gliadin IgG antibody assay 1 % 0-19 Serum or plasma IgA measurement (mass/volume) 163 % 71- 263 Complete blood count (CBC) with automated white blood cell (WBC) differential - 03/13/17 14:58 Blood leukocytes automated count (number/volume) 15.7 10*3/uL 4.3-11.0 Blood erythrocytes automated count (number/volume) 5.19 10*6/uL 4.35-5.85 Venous blood hemoglobin measurement (mass/volume) 13.9 g/dL 11.5-16.0 Blood hematocrit (volume fraction) 41 % 35-52 Automated erythrocyte mean corpuscular volume 78 [foz_us] 80-99 Automated erythrocyte mean corpuscular hemoglobin (mass per erythrocyte) 27 pg 25-34 Automated erythrocyte mean corpuscular hemoglobin concentration measurement ( mass/volume) 34 g/dL 32-36 Automated erythrocyte distribution width ratio 16.0 % 10.0-14.5 Automated blood platelet count (count/volume) 432 10*3/uL 130-400 Automated blood platelet mean volume measurement 8.7 [foz_us] 7.4-10.4 Automated blood neutrophils/100 leukocytes 60 % 42-75 Automated blood lymphocytes/100 leukocytes 31 % 12-44 Blood monocytes/100 leukocytes 8 % 0-12 Automated blood eosinophils/100 leukocytes 1 % 0-10 Automated blood basophils/100 leukocytes 0 % 0-10 Blood neutrophils automated count (number/volume) 9.5 10*3 1.8-7.8 Blood lymphocytes automated count (number/volume) 4.8 10*3 1.0-4.0 Blood monocytes automated count (number/volume) 1.2 10*3 0.0-1.0 Automated eosinophil count 0.1 10*3/uL 0.0-0.3 Automated blood basophil count (count/volume) 0.0 10*3/uL 0.0-0.1 Comprehensive metabolic panel - 03/13/17 14:58 Serum or plasma sodium measurement (moles/volume) 138 mmol/L 135-145 Serum or plasma potassium measurement (moles/volume) 1.8 mmol/L 3.6-5.0 Serum or plasma chloride measurement (moles/volume) 92 mmol/L 98-107 Carbon dioxide 31 mmol/L 21-32 Serum or plasma anion gap determination (moles/volume) 15 mmol/L 5-14 Serum or plasma urea nitrogen measurement (mass/volume) 14 mg/dL 7-18 Serum or plasma creatinine measurement (mass/volume) 0.82 mg/dL 0.60-1.30 Serum or plasma urea nitrogen/creatinine mass ratio 17 NRG Serum or plasma creatinine measurement with calculation of estimated glomerular filtration rate > NRG Serum or plasma glucose measurement (mass/volume) 108 mg/dL 70-105 Serum or plasma calcium measurement (mass/volume) 9.6 mg/dL 8.5-10.1 Serum or plasma total bilirubin measurement (mass/volume) 0.3 mg/dL 0.1-1.0 Serum or plasma alkaline phosphatase measurement (enzymatic activity/volume) 107 U/L 40-136 Serum or plasma aspartate aminotransferase measurement (enzymatic activity/ volume) 19 U/L 5-34 Serum or plasma alanine aminotransferase measurement (enzymatic activity/volume ) 18 U/L 0-55 Serum or plasma protein measurement (mass/volume) 7.4 g/dL 6.4-8.2 Serum or plasma albumin measurement (mass/volume) 4.1 g/dL 3.2-4.5 Magnesium - 03/13/17 14:58 Magnesium 2.2 mg/dL 1.8-2.4 THYROID STIMULATING HORMONE - 03/13/17 14:58 THYROID STIMULATING HORMONE 2.10 u[iU]/mL 0.35-4.94 Blood manual differential performed detection - 03/13/17 14:58 Blood monocytes/100 leukocytes 8 % [facility] [place] Manual blood segmented neutrophils/100 leukocytes 67 % [facility] Manual blood lymphocytes/100 leukocytes 21 % [facility] Blood lymphocytes variant/100 leukocytes 4 % [facility] Blood erythrocyte morphology finding identification NORMAL [facility] Whole blood basic metabolic panel - 04/13/17 14:19 Serum or plasma sodium measurement (moles/volume) 142 mmol/L 135-145 Serum or plasma potassium measurement (moles/volume) 3.5 mmol/L 3.6-5.0 Serum or plasma chloride measurement (moles/volume) 107 mmol/L 98-107 Carbon dioxide 25 mmol/L 21-32 Serum or plasma anion gap determination (moles/volume) 10 mmol/L 5-14 Serum or plasma urea nitrogen measurement (mass/volume) 15 mg/dL 7-18 Serum or plasma creatinine measurement (mass/volume) 0.72 mg/dL 0.60-1.30 Serum or plasma urea nitrogen/creatinine mass ratio 21 NRG Serum or plasma creatinine measurement with calculation of estimated glomerular filtration rate > NRG Serum or plasma glucose measurement (mass/volume) 91 mg/dL 70-105 Serum or plasma calcium measurement (mass/volume) 9.6 mg/dL 8.5-10.1 Magnesium - 04/13/17 14:19 Magnesium 2.2 mg/dL 1.8-2.4 Whole blood basic metabolic panel - 04/30/17 14:13 Serum or plasma sodium measurement (moles/volume) 142 mmol/L 135-145 Serum or plasma potassium measurement (moles/volume) 3.1 mmol/L 3.6-5.0 Serum or plasma chloride measurement (moles/volume) 105 mmol/L 98-107 Carbon dioxide 26 mmol/L 21-32 Serum or plasma anion gap determination (moles/volume) 11 mmol/L 5-14 Serum or plasma urea nitrogen measurement (mass/volume) 19 mg/dL 7-18 Serum or plasma creatinine measurement (mass/volume) 0.72 mg/dL 0.60-1.30 Serum or plasma urea nitrogen/creatinine mass ratio 26 NRG Serum or plasma creatinine measurement with calculation of estimated glomerular filtration rate > NRG Serum or plasma glucose measurement (mass/volume) 98 mg/dL 70-105 Serum or plasma calcium measurement (mass/volume) 9.5 mg/dL 8.5-10.1 Magnesium - 04/30/17 14:13 Magnesium 2.0 mg/dL 1.8-2.4 LIPID PANEL - 08/04/17 09:46 CHOLESTEROL, TOTAL 230 mg/dL <200 HDL CHOLESTEROL 36 mg/dL >50 TRIGLYCERIDES 256 mg/dL <150 LDL-CHOLESTEROL 152 mg/dL (calc) NRG CHOL/HDLC RATIO 6.4 (calc) <5.0 NON HDL CHOLESTEROL 194 mg/dL (calc) <130 BMP - 10/16/17 13:25 GLUCOSE 84 mg/dL 65-99 UREA NITROGEN (BUN) 12 mg/dL 7-25 CREATININE 0.65 mg/dL 0.50-0.99 eGFR NON-AFR. MARSHALLESE 93 mL/min/1.73m2 > OR=60 eGFR 107 mL/min/1.73m2 > OR=60 BUN/CREATININE RATIO NOT APPLICABLE (calc) 6-22 SODIUM 144 mmol/L 135-146 POTASSIUM 3.6 mmol/L 3.5-5.3 CHLORIDE 105 mmol/L 98-110 CARBON DIOXIDE 26 mmol/L 20-31 CALCIUM 10.1 mg/dL 8.6-10.4 BNP - 10/29/17 15:23 B TYPE NATRIURETIC PEPTIDE (BNP) 58 pg/mL <100 SPECIMEN ID NOTIFICATION$MISSING SECOND ID - 11/02/17 11:10 COMMENT: NRG CULTURE, STOOL - 11/02/17 11:10 SALMONELLA AND SHIGELLA, CULTURE SEE NOTE NRG FSH, SERUM - 11/26/17 14:56 FSH 174.7 mIU/mL NRG Encounters ACCT No. Visit Date/Time Discharge Status Pt. Type Provider Facility Loc./Unit Complaint [id number] 08/03/2014 15:46:00 08/03/2014 23:59:59 CLS Outpatient MESFIN LEVIN DO [id number] 07/07/2014 09:40:00 07/07/2014 23:59:59 CLS Outpatient MESFIN LEVIN DO [id number] 06/09/2014 09:00:00 06/09/2014 23:59:59 CLS Outpatient MESFIN LEVIN DO [id number] 04/18/2014 15:39:00 04/18/2014 23:59:59 CLS Outpatient JOSE SEYMOUR APRNNYHemant Slaughter [id number] 03/28/2014 18:18:00 03/28/2014 23:59:59 CLS Outpatient RASHAAD PERALES APRN [id number] 03/21/2014 14:11:00 03/21/2014 23:59:59 CLS Outpatient RASHAAD PERALES APRN [id number] 03/13/2014 14:08:00 03/13/2014 23:59:59 CLS Outpatient MESFIN LEVIN DO [id number] 12/07/2013 14:35:00 12/07/2013 23:59:59 CLS Outpatient RACHID GUZMAN APRN [id number] 11/08/2013 17:47:00 11/08/2013 23:59:59 CLS Outpatient RASHAAD PERALES APRN [id number] 09/12/2013 13:20:00 09/12/2013 23:59:59 CLS Outpatient MESFIN LEVIN DO [id number] 07/05/2013 16:21:00 07/05/2013 23:59:59 CLS Outpatient NAYA JACKSON APRN [id number] 07/04/2013 13:35:00 07/04/2013 23:59:59 CLS Outpatient MESFIN LEVIN DO [id number] 06/28/2013 11:17:00 06/28/2013 23:59:59 CLS Outpatient MESFIN LEVIN DO [id number] 06/27/2013 11:13:00 06/27/2013 23:59:59 CLS Outpatient MESFIN LEVIN DO [id number] 02/28/2013 10:57:00 02/28/2013 23:59:59 CLS Outpatient MESFIN LEVIN DO [id number] 01/05/2013 09:00:00 01/05/2013 23:59:59 CLS Outpatient MESFIN LEVIN DO [id number] 06/04/2012 10:27:00 06/04/2012 23:59:59 CLS Outpatient MESFIN LEVIN DO [id number] 05/13/2012 11:26:00 05/13/2012 23:59:59 [place] [id number] 12/24/2011 09:00:00 12/24/2011 23:59:59 CLS Outpatient [id number] 09/27/2012 13:29:00 Document Registration [id number] 08/30/2012 12:05:00 Document Registration [id number] 01/22/2016 08:07:00 Document Registration [id number] 01/13/2018 13:33:00 01/13/2018 23:59:59 CLS Outpatient NAYA JACKSON [facility] RAD BREAST DENSITY [id number] 08/04/2017 10:30:00 08/04/2017 23:59:59 CLS Preadmit NAYA JACKSON [facility] RAD R29.898 LEG WEAKNESS, BILAT [id number] 07/07/2017 14:57:00 07/07/2017 23:59:59 CLS Preadmit NAYA JACKSON [facility] RAD N63.0 FIBROUS BREAST LUMPS [id number] 07/02/2017 12:24:00 07/02/2017 23:59:59 CLS Outpatient NAYA JACKSON [facility] RAD R92.2 BREAST DENSITY [id number] 06/22/2017 10:18:00 06/22/2017 23:59:59 CLS Outpatient MANDA MCCRAY FACC, STEPHANI MIRELES CCDS [facility] LAB E87.6,I10, R00.2,Z72.0,J43.8 [id number] 06/22/2017 10:16:00 06/22/2017 23:59:59 CLS Outpatient NAYA JACKSON [employer] [facility] RAD Z12.31 SCREENING [id number] 05/14/2017 15:10:00 05/14/2017 23:59:59 CLS Outpatient MANDA MCCRAY FACC, ALI FACP CCDS [facility] LAB E87.6, I10, R00.2, K58.0, J43.8 [id number] 05/07/2017 13:01:00 05/07/2017 23:59:59 CLS Outpatient MANDA MCCRAY FACC, ALI FACP CCDS [facility] LAB E87.6 I10 I47.1 [id number] 04/30/2017 14:04:00 04/30/2017 23:59:59 CLS Outpatient JELANI SHERWOOD [employer] [facility] LAB E87.6 [id number] 04/13/2017 13:57:00 04/13/2017 23:59:59 CLS Outpatient MANDA MCCRAY FACC, ALI FACP CCDS [facility] LAB E87.6 [id number] 04/09/2017 11:41:00 04/09/2017 23:59:59 CLS Outpatient KAELA JELANI Sukhjinder [employer] [facility] LAB R00.2 I10 E87.6 J43.8 [id number] 04/02/2017 14:07:00 04/02/2017 23:59:59 CLS Outpatient JELANI SHERWOOD [employer]IE[employer] ENGINE[employer] [facility] LAB R00.2 I10 E87.6 J43.8 [id number] 03/24/2017 07:21:00 03/24/2017 23:59:59 CLS Outpatient MANDA MCCRAY FACHansa, ALI FACP CCDS [facility] CARD COPD [id number] 03/18/2017 09:25:00 03/18/2017 23:59:59 CLS Outpatient MANDA MCCRAY FACHansa, ALI FACP CCDS [facility] CARD COPD [id number] 03/13/2017 14:26:00 03/13/2017 23:59:59 CLS Outpatient MANDA MCCRAY FACC, ALI FACP CCDS [facility] LAB R00.2 I10 J43.8 Z87.891 [id number] 10/17/2016 10:06:00 10/17/2016 23:59:59 CLS Outpatient MARCIN MONTANO MD [facility] LAB R19.7 [id number] 08/14/2016 00:12:00 08/14/2016 23:59:59 CLS Preadmit NAZ MACKENZIE DO [facility] LAB R197,R195,R109,R159 [id number] 05/15/2016 12:43:00 08/13/2016 00:01:00 DIS Outpatient NAZ MACKENZIE DO [facility] LAB R197,R195,R109,R159 [id number] 06/20/2016 12:37:00 06/20/2016 23:59:59 CLS Outpatient MARYANA ROJO [facility] RAD SCREENING [id number] 05/26/2016 12:35:00 05/26/2016 23:59:59 CLS Outpatient NAZ MACKENZIE DO [facility] LAB R79.89 [id number] 03/18/2016 07:51:00 03/18/2016 10:25:00 DIS Outpatient AARON ISLAS DO [facility] SDC SCREENING [id number] 03/13/2016 05:36:00 03/13/2016 11:11:00 DIS Outpatient AARON ISLAS DO [facility] PREOP SCREENING [id number] 05/14/2015 10:50:00 05/14/2015 23:59:59 CLS Outpatient MARYANA ROJO [facility] RAD SCREENING [id number] 04/04/2014 14:36:00 04/04/2014 23:59:59 CLS Outpatient RASHAAD PERALES APRN [facility] RAD SCREENING [id number] 08/05/2013 08:08:00 08/05/2013 23:59:59 CLS Outpatient MOLLY MARY MD [facility] RAD [id number] 02/28/2013 08:04:00 02/28/2013 23:59:59 CLS Outpatient LOYD ADAM AMEYA [facility] RAD [id number] 03/25/2018 08:15:00 PEN Preadmit JACK WONG ASAF Unruly [facility] SDC PELVIC ORGAN PROLAPSE, EXTERNAL HEMORRHOID [id number] 04/03/2014 09:55:00 Document Registration [id number] 04/03/2014 09:55:00 Document Registration [id number] 03/24/2012 13:30:00 Document Registration [id number] 12/27/2011 13:35:00 Document Registration [id number] 12/24/2011 11:23:00 Document Registration [id number] 12/08/2011 05:35:00 Document Registration [id number] 12/05/2011 08:30:00 Document Registration [id number] 12/05/2011 07:23:00 Document Registration [id number] 12/01/2011 10:32:00 Document Registration [id number] 12/18/2008 11:04:00 Document Registration [id number] 12/18/2008 09:00:00 Document Registration [id number] 04/23/2016 08:35:00 Document Registration [id number] 11/26/2017 14:20:00 11/26/2017 23:59:59 CLS Outpatient NAYA JACKSON APRN [facility] [id number] 11/26/2017 14:20:00 Document Registration [id number] 11/02/2017 10:20:00 Document Registration [id number] 10/29/2017 14:40:00 Document Registration [id number] 10/16/2017 13:00:00 Document Registration [id number] 08/04/2017 09:40:00 Document Registration
[2018-03-25] MEDS: ONDANSETRON 4 MG/2 ML (SDV) Z0FRAN IV PRN ×2 (16:38→20:18)
[2018-03-25 17:27] VITALS: BP 128/64
[2018-03-25] MEDS ORDERED: FUROSEMIDE 20 MG (LASIX) TAB ONE (20:16)
[2018-03-25 20:20] VITALS: BP 129/74
--- NOTE | 2018-03-25 20:23 | OPERATIVE REPORT ---
DATE OF SERVICE: 03/25/2018 PREOPERATIVE DIAGNOSES: 1. A 67-year-old female with pelvic organ prolapse. 2. External hemorrhoid. POSTOPERATIVE DIAGNOSES: 1. A 67-year-old female with pelvic organ prolapse. 2. External hemorrhoid. PROCEDURES: Robotic-assisted total laparoscopic hysterectomy with bilateral salpingo-oophorectomy, anterior colporrhaphy and external hemorrhoidectomy. SURGEON: Hua Guerrero DO QUALITY CONTROL ASSESSOR: AMEYA Tracey ANESTHESIA: General endotracheal. ESTIMATED BLOOD LOSS: 50 mL. URINE OUTPUT: 30 mL clear at the end of the procedure. FLUIDS: 1600 mL lactated Ringer's solution. FINDINGS: Grossly normal appearing uterus, bilateral fallopian tubes and ovaries with some adhesions of the right ovary to the right pelvic sidewall and retroperitoneal extending right ovarian cyst that appears dark, a grade III cystocele and prolapse of the cervix to the external vaginal introitus, a 3 x 2 cm external hemorrhoid as well. SPECIMENS SENT: Hemorrhoid and uterus, bilateral fallopian tubes, ovaries. INDICATION FOR PROCEDURE: This 67-year-old female is a consultation in my office from the [facility] for pelvic organ prolapse. The patient also wanted her hemorrhoid addressed as well as it had been giving her troubles. She can feel it when she wipes and it bothers her whenever she becomes constipated. I evaluated the patient and found that she had all of my findings described above. We discussed more conservative measures in the form of a pessary; however, the patient is still sexually active and would like to continue to be so and finds the pessary very cumbersome as far as maintenance goes, so she would like to proceed with surgical correction of the defect. Risks of the procedure were discussed with the patient in detail including risk of bleeding, infection, damage to surrounding structures including, but not limited to bowel, bladder, ureter, kidney, possible need for reoperation, risk from damaging the rectum with hemorrhoidectomy, risk of postoperative infection, subsequent need for possible procedures down the line depending on any complications that may be incurred. We discussed risks of anesthesia and even . After everything was discussed with the patient in detail and consent was obtained, the patient was taken to the operating room. OPERATIVE REPORT IN DETAIL: Once in the operating room, general anesthesia was found to be adequate, placed in dorsal lithotomy position, prepped and draped in normal sterile fashion. Morgan catheter was placed using sterile technique. A timeout was performed. A weighted speculum was inserted in the patient's vagina. Right angle retractor was used to visualize the cervix, which was grasped at 12 o'clock position using a long Allis clamp. I then placed an 0 Vicryl suture through the anterior lip of the cervix and removed the Allis clamp. The suture was then used as my retraction point. I then selected an 8 cm tip and a 3 cm colpotomy ring for the Katherine uterine manipulator after the cervix is sounded and found to be 8 cm in depth. I then advanced the manipulator tip into the uterus and deployed the balloon and advanced a colpotomy around the vaginal fornix. Once this was in place, I am able to appreciate excellent manipulation on bimanual exam. All other instruments were removed from the patient's vagina. I then performed change of gloves and taken my attention to the abdomen where infraumbilically, I infiltrated the areas using 0.25% Marcaine, making an 8 mm incision and directed a Veress needle through the incision until the intraperitoneal placement was confirmed using a saline drop test. I then proceeded with insufflation using CO2 gas and opening pressure of 3 mmHg was noted and proceeded to a maximum pressure of 15 mmHg, at which point I removed the Veress needle and introduced an 8 mm blunt da Kely camera trocar. Once this was in place, I am able to confirm intraperitoneal placement using the da Kely laparoscope. I then had the patient placed in steep Trendelenburg after briefly scanning the upper abdominal anatomy, which shows no evidence of any gross abnormalities. Once in steep Trendelenburg, I am able to visualize all the pelvic anatomy described above in order to complete the procedure as scheduled. I then placed two 8 mm trocars at approximately 8 cm lateral to my infraumbilical trocar. The skin was infiltrated using 0.25% Marcaine. The incisions were made using a knife and the trocars were placed under direct visualization of the laparoscope. Once these were in place, I am able to bring in the da Kely robot and docked in the appropriate fashion. I placed the da Kely vessel sealer in the left hand and the monopolar janie in the right hand. I then performed the following dissection bilaterally using the iVilka operative console. Starting at the infundibulopelvic ligament, I bipolar cauterized and transected this using the vessel sealer. During this process, I monitored and watched the ureter and stay well away from it as I am dissecting. I then grasped the round ligament, bipolar cauterized and transected this using the vessel sealer. I then grasped the entire broad ligament, bipolar cauterized and transected this using the vessel sealer. Then, I am able to take this all the way down to the lower uterine segment, at which point, I the anterior and posterior leaflets of the broad ligament. The anterior leaflet dissection was taken down to the anterior vaginal fornix. Posterior leaflet was taken down to the posterior vaginal fornix. This has allowed me to skeletonize the uterine vessels laterally and bipolar cauterized and transected them using the vessel sealer. I then created a colpotomy at the 12 o'clock position using monopolar janie visualizing the colpotomy ring on the Katherine. I then took this circumferentially around the colpotomy ring, amputating the cervix away from the vagina. I then removed the specimen through the vagina and closed the lateral vaginal apices of the vaginal cuff using 2-0 Vicryl suture in a [id number] fashion, colposuspending into the uterosacral ligament. I then closed the remainder of the vaginal cuff using 2-0 V-Loc in a running fashion, after which, there was no active bleeding noted from any of my dissection planes. I then undocked the da Kely robot and proceeded with the remainder of the case laparoscopically. I started by copiously irrigating the pelvis using normal saline. Once again, there was no active bleeding noted from any of my dissection planes. I placed FloSeal hemostatic agent over all my planes of dissection. I had the patient taken out of steep Trendelenburg. Once this was done, I removed the lateral trocars under direct visualization of the laparoscope. The infraumbilical trocar was left in place. I introduced 10 mL of 0.25% Marcaine for postoperative pain management and to release insufflation. This trocar was then removed. I then closed the skin using 4-0 Monocryl in interrupted subcuticular stitches. Dermabond was applied to incision and sterile dressing with adhesive white tape. Band-Aids were placed over the incisions. I then took my attention to the pelvis once again where I identified the cystocele, which seems to be reduced down to a grade II to grade I; however, I do proceed with repairing this due to the ongoing issues the patient has been having. I first started by infiltrating the submucosa of the vagina along the margins of the cystocele using vasopressin concentration of 20 units in 100 mL of normal saline. Once this was done, I made an incision at the bladder neck through the vaginal mucosa until the submucosa was encountered. I then took the dissection using the Metzenbaum scissors staying submucosally down the midline of the cystocele defect. I then incised this midline incision that I have made down the midline and dissect the underlying vesicovaginal fascia off of the mucosa. The excess mucosa was then trimmed. The vaginal mucosa and newly reapproximated vesicovaginal fascia was then pulled back together in a plicating fashion using 3-0 Vicryl suture in a running locked fashion. I then took my attention to the external hemorrhoid, which was suture ligated at the base using 3-0 vicryl, the then excised using mendez scissors, after which there was no active bleeding noted from any of my dissection planes. I then packed the vagina using Premarin soaked vaginal packing. Morgan catheter was left in place. The patient tolerated the procedure well and was taken to recovery area in stable condition. Lap and sponge counts were correct at the end of the procedure. Instrument count was correct as well. Two grams of Ancef and 100 mg of Flagyl were given preoperatively for infection prophylaxis. Job ID: [id number] DocumentID: [id number] Dictated Date: 03/25/2018 12:05:02 [employer] Date: 03/25/2018 20:22:10 Dictated By: DO GWEN COYNE
[2018-03-25] MEDS ORDERED: PROMETHAZINE INJ 25 MG/ML (PHENERGAN) AMP IVP PRN (21:30)
[2018-03-25 23:45] VITALS: BP 135/80
[2018-03-26 04:53] VITALS: BP 133/72
[2018-03-26] MEDS: IBUPROFEN 600 MG (MOTRIN) TAB PO PRN ×2 (04:54→11:22)
[2018-03-26] MEDS: HYDROcodone/APAP 7.5 MG/325 MG (LORTAB, LORCET PLUS) TABLET PO PRN ×2 (06:23→11:22)
--- NOTE | 2018-03-26 07:00 | Anesthesia-General Post-Op ---
General Patient Condition Mental Status/LOC: Same as Preop Cardiovascular: Satisfactory Nausea/Vomiting: Present Respiratory: Satisfactory Pain: Controlled Complications: Absent Post Op Complications Complications None Follow Up Care/Instructions Patient Instructions None needed. Anesthesia/Patient Condition Patient Condition Patient is doing well, no complaints, stable vital signs, no apparent adverse anesthesia problems. No complications reported per nursing. D/C home per [facility] [place] [facility] [place] Criteria: DARREL Novak CRNA Mar 26, 2018 07:00
[2018-03-26] MEDS ORDERED: FUROSEMIDE 20 MG (LASIX) TAB PO SCH (09:00)
[2018-03-26 11:15] VITALS: BP 160/72
== END 2018-03-26 11:55 | disposition home or self-care (01) ==
LOC: SDC 08:05 → LDRP 13:36 → SDC 03-26 11:55
PROVIDERS: ATTEND Obstetrics & Gynecology
DX: N81.2 Incomplete uterovaginal prolapse (principal); N83.201 Unspecified ovarian cyst, right side; K64.4 Residual hemorrhoidal skin tags; N88.8 Other specified noninflammatory disorders of cervix uteri; D26.9 Other benign neoplasm of uterus, unspecified; D25.1 Intramural leiomyoma of uterus; N83.8 Other noninflammatory disorders of ovary, fallopian tube and broad ligament; N94.89 Other specified conditions associated with female genital organs and menstrual cycle; I10 Essential (primary) hypertension; J44.9 Chronic obstructive pulmonary disease, unspecified; Z87.891 Personal history of nicotine dependence; Z79.82 Long term (current) use of aspirin; Z79.899 Other long term (current) drug therapy
CPT/HCPCS: 86850; 86900; 86901; 94664

== ENCOUNTER → 2018-07-05 | Outpatient (CLI) | payer MEDICARE, OTHER ==
[~2018-07-05] MED LIST changes: +DOCU100C37 PO; +GABA800T10 PO; -GABA800T2 PO; +HYDR-34 PO; +IBUP-844 PO; +SIME80TA16 PO
--- NOTE | 2018-07-05 19:01 | Diagnostic Imaging Report ---
INDICATION: Six-month followup bilateral breast nodules. COMPARISON: 01/13/2018, 06/22/2017, and 06/20/2016. TECHNIQUE: 2D and 3D bilateral diagnostic mammography was performed with CAD. FINDINGS: The bilateral circumscribed nodules appear stable and likely benign. No spiculated mass or malignant-appearing microcalcifications are seen. The axillae are unremarkable. IMPRESSION: Stable bilateral mammograms. The patient may return to routine annual screening mammography. ACR BI-RADS Category 2: Benign findings. Result letter will be mailed to the patient. Note: At least 10% of breast cancer is not imaged by mammography. Dictated by: Dictated on workstation # [id number]
== END ==
LOC: RAD 13:52
PROVIDERS: ATTEND Nurse Practitioner Community Health
DX: N63.10 Unspecified lump in the right breast, unspecified quadrant (principal); N63.20 Unspecified lump in the left breast, unspecified quadrant
CPT/HCPCS: 77066